=== PATIENT | female | born 1945 | race Two or more races ===

== ENCOUNTER 2022-10-15 10:39 | Outpatient (REF) | payer MEDICARE, SELFPAY ==
[2022-10-15 16:19] LABS: Urine Cytology See Pathology rpt
== END 2022-10-15 10:40 | disposition home or self-care (01) ==
LOC: HO.LNP 10:39
PROVIDERS: PCP Family Medicine; Visit Provider Nurse Practitioner Family
DX: R31.29 Other microscopic hematuria (principal); R39.89 Other symptoms and signs involving the genitourinary system; R35.0 Frequency of micturition; R32 Unspecified urinary incontinence; Z79.899 Other long term (current) drug therapy; Z79.84 Long term (current) use of oral hypoglycemic drugs
CPT/HCPCS: 51798; 88112; 99202

== ENCOUNTER → 2022-10-21 10:58 | Outpatient (BNVA) | payer MEDICARE, SELFPAY | PROVIDERS: PCP Family Medicine; Referring Provider Family Medicine; Visit Provider Internal Medicine | DX: I25.10 Atherosclerotic heart disease of native coronary artery without angina pectoris (principal); I11.0 Hypertensive heart disease with heart failure; I50.32 Chronic diastolic (congestive) heart failure; E11.9 Type 2 diabetes mellitus without complications | CPT/HCPCS: 93005; 99202 ==

== ENCOUNTER 2022-10-26 14:46 | Outpatient (REF) | payer MEDICARE, SELFPAY ==
--- NOTE | ~2022-10-26 | MM_ITS ---
EXAMINATION: MM DIAGNOSTIC DIGITAL BREAST TOMOSYNTHESIS, BILATERAL US DIAGNOSTIC ULTRASOUND BREAST, LEFT CLINICAL INFORMATION: Due for yearly. Chronic left breast pain for years. No erythema. Remote history bilateral reduction mammoplasty decades ago. The lifetime risk of breast cancer based on the Tyrer-Cuzick Model is under 5%. COMPARISON: Outside mammogram (paper media) dated 09/01/2021 ([facility]). TECHNIQUE: Digital breast tomosynthesis is performed in both the craniocaudal and mediolateral oblique views along with computer-aided detection (CAD). Synthesized 2D images are generated from the tomosynthesis. Ultrasound ultrasound left breast is targeted to the outer breast using grayscale imaging and color Doppler without and with harmonics. FINDINGS: There are scattered areas of fibroglandular density (ACR BI-RADS breast composition Category b). Parenchymal pattern is similar to the outside mammography images (paper media). There has stable patchy asymmetries posterior lower and posterior upper left breast. There is no interval developing density or architectural abnormality. No abnormal calcifications. Scattered round and a few fine vascular calcifications are present. The axilla are unremarkable. No skin thickening or coarsening of the Reji's ligaments. Ultrasound left breast demonstrates no cystic or solid mass, architectural abnormality, or focal duct ectasia. No skin thickening or edema tracking in soft tissue planes. No hyperemia on color Doppler. Results are discussed with the patient at time of visit, using an laborer orchard. MM/MM tomosynthesis diagnostic BI IMPRESSION: -No significant changes from prior outside exam. No inflammatory changes. -Unremarkable left breast ultrasound. ASSESSMENT: BI-RADS 2: Benign RECOMMENDATION: 1. Patient's chronic left mastodynia should be managed based on the clinical impression. 2. Otherwise, routine annual screening mammography. This patient's information was entered into a reminder system with a target due date for their next mammogram.
== END 2022-10-26 14:47 | disposition home or self-care (01) ==
LOC: HO.MAMMO 14:46
PROVIDERS: PCP Family Medicine; Visit Provider Family Medicine
DX: N64.4 Mastodynia (principal)
CPT/HCPCS: 76642; 77062; 77066

== ENCOUNTER 2022-11-04 10:12 | Outpatient (REF) | payer MEDICARE, SELFPAY ==
--- NOTE | ~2022-11-04 | US_ITS ---
EXAMINATION: US EXTRACRANIAL CAROTID DUPLEX, BILATERAL CLINICAL INFORMATION: Bilateral occlusion and stenosis of the carotid arteries COMPARISON: None available. TECHNIQUE: Real-time ultrasound and Doppler techniques (integrating B-mode 2-D vascular images, Doppler spectral analysis and color-flow Doppler imaging) were utilized to interrogate the extracranial carotid arteries, the vertebral arteries and proximal subclavian arteries bilaterally. The degree of stenosis is determined by criteria similar to NASCET. FINDINGS: Right Side: 1. There is no significant atherosclerotic plaque seen in the bifurcation/proximal ICA region. 2. The common carotid artery PSV proximally is 95 cm/s and distally 78 cm/s. 3. The proximal internal carotid artery velocities are 56 cm/s systolic and 13 cm/s diastolic. 4. The proximal external carotid artery PSV is 74 cm/s. 5. The vertebral artery shows antegrade flow. 6. The subclavian artery waveforms are normal. Left Side: 1. There is no significant atherosclerotic plaque seen in the bifurcation/proximal ICA region. 2. The common carotid artery PSV proximally is 74 cm/s and distally 67 cm/s. 3. The proximal internal carotid artery velocities are 47 cm/s systolic and 13 cm/s diastolic. 4. The proximal external carotid artery PSV is 60 cm/s. 5. The vertebral artery shows antegrade flow. 6. The subclavian artery waveforms are normal. US/US carotid duplex BI IMPRESSION: 1. RIGHT: Normal right internal carotid artery without atherosclerotic plaque or hemodynamically significant stenosis. 2. LEFT: Normal left internal carotid artery without atherosclerotic plaque or hemodynamically significant stenosis.
== END 2022-11-04 10:13 | disposition home or self-care (01) ==
LOC: HO.US 10:12
PROVIDERS: PCP Family Medicine; Visit Provider Internal Medicine
DX: I65.23 Occlusion and stenosis of bilateral carotid arteries (principal)
CPT/HCPCS: 93880

== ENCOUNTER 2022-11-09 05:57 | Outpatient (REF) | payer MEDICARE, SELFPAY ==
--- NOTE | ~2022-11-09 | CT_ITS ---
EXAMINATION: CT ABDOMEN AND PELVIS WITH CONTRAST CLINICAL INFORMATION: Periumbilical pain. COMPARISON: None available. TECHNIQUE: Multidetector volumetric images were obtained from the superior aspect of the liver through the pubic symphysis following administration of 85 mL of Omnipaque 350 intravenous contrast. Sagittal and coronal reformatted images were obtained on the technologist's workstation. Oral contrast: Yes This CT examination was performed using dose optimization techniques as appropriate, variously including the following: *Automated exposure control *Adjustment of mA and/or kV according to patient size (this includes techniques or standardized protocols for targeted exams where dose is matched to indication/reason for exam; i.e. extremities or head) *Use of iterative reconstruction technique DLP: 247 mGy-cm FINDINGS: LUNG BASES: The lung bases appear clear, with no evidence of inflammation or nodules. LIVER, GALLBLADDER, AND BILIARY TREE: The liver appears unremarkable in size, shape, and attenuation. No focal hepatic lesion or biliary ductal dilatation is appreciated. Status post cholecystectomy. PANCREAS: Unremarkable SPLEEN: Unremarkable ADRENAL GLANDS: Unremarkable KIDNEYS AND URETERS: The kidneys appear unremarkable in size, shape, and attenuation. No hydronephrosis, hydroureter, or calculi seen. BLADDER: Unremarkable GASTROINTESTINAL TRACT: Suboptimal oral contrast opacification of jejunum. The small and large bowel appear grossly unremarkable. No diverticulosis. Normal-appearing distal ileum. No evidence of appendicitis. ABDOMINAL WALL: No significant hernia is appreciated. LYMPH NODES/RETROPERITONEUM: No evidence of adenopathy by size criteria. Scattered calcified retroperitoneal phleboliths or calcified nodes. VASCULAR: Unremarkable PELVIC VISCERA: Uterus not visualized, probably surgically absent. OSSEOUS STRUCTURES: Unremarkable CT/CT abdomen pelvis w IV con IMPRESSION: No acute finding.
[2022-11-09] MEDS: iohexoL 350 MG/ML 100 ML INFUS..BTL IV (08:32)
[2022-11-09] MEDS: Barium Sulfate Oral (Vanilla) 450 ML ORAL.SUSP 900 ML PO (08:33)
[2022-11-10 07:29] LABS: Creatinine POC 0.5 mg/dL (0.5-1.4); GFR POC > 60
== END 2022-11-09 05:58 | disposition home or self-care (01) ==
LOC: HO.CT 05:57
PROVIDERS: PCP Family Medicine; Visit Provider Family Medicine
DX: R10.33 Periumbilical pain (principal)
CPT/HCPCS: 74177; 82565; Q9967

== ENCOUNTER → 2022-11-12 10:39 | Outpatient (REF) | payer MEDICARE, SELFPAY ==
--- NOTE | 2022-11-12 10:45 | CA_ITS ---
Transthoracic Echocardiogram Patient (Last, First, Middle): Ed Holguin, Gender: Female Date of : 1945 Age: 77 Procedure Date: 11/12/2022 Procedure Type: Transthoracic Echocardiogram Location: OP Height: 152.4 cm Weight: 54.43 kg BSA: 1.50 m2 Heart Rate: bpm BP: 110 / 66 mmHg Redipper: TO Referring MD: Juan Padilla MD Aircraft Pneudraulics Repairer: Manny Herrera MD Symptoms: I25.10 - Atherosclerotic heart disease of [place] coronary artery without... Study Quality: Fair ECG Rhythm: Sinus Conclusions: - 1. Normal LV systolic function with grade 1 diastolic dysfunction 2. Normal cardiac valvular Dopplers 3. Normal RV systolic pressure 4. No gross pericardial effusion Findings Left Ventricle Normal left ventricular size, thickness, and systolic function. The visually estimated ejection fraction is between 65-70%. Spectral Doppler is indicative of an impaired relaxation filling pattern. E/E prime ratio is <8, consistent with normal filling pressures. Evidence suggests grade I (mild) diastolic dysfunction. Peak GLS is -20%, which is within normal limits. Right Ventricle Normal right ventricular cavity size and systolic function. Atria Both atria are normal in size. There is no evidence of interatrial shunt. Aortic Valve Normal aortic valve structure and function. There is no aortic valve stenosis. There is no aortic valve regurgitation. Mitral Valve Normal mitral valve structure and function. There is trace mitral valve regurgitation. There is no mitral valve stenosis. Pulmonic Valve The pulmonic valve is likely normal. There is trace pulmonic valve regurgitation. Tricuspid Valve Normal tricuspid valve structure. There is trace tricuspid valve regurgitation. The right ventricular systolic pressure is normal. The right ventricular systolic pressure is 22 mmHg. Normal right atrial pressure. There is no evidence of pulmonary hypertension. Great Vessels All visible segments of the aorta are normal in size. The pulmonary artery was not well visualized. Venous The inferior vena cava is normal in size and collapses greater than 50% with inspiration. Pericardium/Pleural There is no evidence of pericardial effusion. Prior Study Comparison No prior study available for comparison. Measurements 2D Linear Measurements IVSd: 1.22 0.6-0.9/0.6-1.0 cm LVIDd: 3.27 3.9-5.3/4.2-5.9 cm LVIDd Index: 2.18 2.4-3.2/2.2-3.1 cm/m2 LVIDs: 2.23 2.0-3.6 cm LVPWd: 0.79 0.7-1.1 cm LA Diam: 2.40 2.7-3.8/3.0-4.0 cm LAIDs Index: 1.60 1.5-2.3 cm/m2 LV Mass: 116.90 67-162/88-224 g LV Mass Index: 77.93 43-95/49-115 g/m2 LVOT Diam: 1.90 3.0+(-)1.3 cm 2D Systolic Function EF 4C: 67.30 >55% EF 2C: 70.20 >55% EF BiP: 68.60 >55% Mitral Valve MV VTI: 0.36 MV Pk Oni: 1.19 MV Mn Oni: 0.68 MV Pk Grad: 6.00 MV Mn Grad: 2.00 MV Pk E: 0.71 MV PK A: 1.10 MV Decel Time: 303.00 E/A: 0.60 E'Lateral: 10.30 E'Medial: 6.09 E/E' Med: 11.70 E/E' Lat: 6.90 PHT: 89.00 MVA PHT: 2.47 MVA Continuity: 1.89 Decel [place]: 2.35 Aortic Valve AoV Pk Oni: 1.39 AoV Mn Oni: 0.97 AoV VTI: 0.29 AoV Pk Grad: 8.00 Aov Mn Grad: 4.00 MIYA Cont.VTI: 2.33 LVOT LVOT Pk Oni: 1.10 LVOT Mn Oni: 0.70 LVOT VTI: 0.24 LVOT Pk Grad: 5.00 LVOT Mn Grad: 2.00 LVOT Diam: 1.90 LVOT Area: 2.84 Diastolic Function MV Pk E: 0.71 MV Pk A: 1.10 E/A: 0.60 E'Medial: 6.09 E/E' Med: 11.70 E' Laterial: 10.30 E/E' Lat: 6.90 Right Ventricle TAPSE (mm): 18.40 TVS' Oni: 10.30 Tricuspid Valve TR Pk Oni: 2.17 TR Pk Grad: 19.00 RA Press: 3.00 RVSP: 22.00 Great Vessels Aorta Sinus of Valsalva: 2.94 2.0-3.[address] [place]: 2.47 1.7-3.4 cm Ao Asc: 3.30 2.1-3.4 cm Updated in Other Vendor System with Status of Final Manny Herrera MD electronically signed on 11/12/2022 4:27:48 PM with status of Final
== END ==
LOC: HO.CARD 10:39
PROVIDERS: PCP Family Medicine; Visit Provider Internal Medicine
DX: R00.2 Palpitations (principal); I25.10 Atherosclerotic heart disease of native coronary artery without angina pectoris
CPT/HCPCS: 93242; 93306; 93356

== ENCOUNTER 2022-11-16 14:47 | Outpatient (REF) | payer MEDICARE, SELFPAY ==
[2022-11-16 18:17] LABS: Alanine Aminotransferase 20 U/L (0-31); Albumin Level 4.3 g/dL (3.5-5.0); Alkaline Phosphatase 77 U/L (39-117); Anion Gap 12 (12-20); Aspartate Amino Transferase 26 U/L (5-31); Blood Urea Nitrogen 14 mg/dL (9-16); Carbon Dioxide 33 mmol/L (22-29); Chloride 103 mmol/L (96-108); Estimated Glomerular Filt Rate 58; Glucose Random 87 mg/dL (60-115); Iron 151 mcg/dL (30-160); Percent Iron Saturation 44 % (15-50); Potassium 4.7 mmol/L (3.3-5.1); Sodium 143 mmol/L (135-145); Total Iron Binding Capacity 344 mcg/dL (228-428); Total Protein 7.5 g/dL (6.5-8.0); Unsaturated Iron Binding 193 ug/dL
[2022-11-16 18:31] LABS: Ferritin 23 ng/mL (10-250); TSH reflex Free T4 1.47 uIU/mL (0.32-4.0)
== END 2022-11-16 14:48 | disposition home or self-care (01) ==
LOC: HO.LAB 14:47
PROVIDERS: PCP Family Medicine; Visit Provider Internal Medicine
DX: R10.11 Right upper quadrant pain (principal); R63.4 Abnormal weight loss; R12 Heartburn; E11.9 Type 2 diabetes mellitus without complications
CPT/HCPCS: 36415; 80053; 82728; 82784; 83036; 83540; 84443; 85027; 86364; 99202

== ENCOUNTER 2022-12-03 08:17 | Outpatient (REF) | payer MEDICARE, SELFPAY ==
--- NOTE | ~2022-12-03 | US_ITS ---
EXAMINATION: US ABDOMEN COMPLETE CLINICAL INFORMATION: Right upper quadrant pain. COMPARISON: CT abdomen and pelvis 11/09/2022. TECHNIQUE: Real-time imaging of the abdominal viscera. Limited visualization due to bowel gas. FINDINGS: PANCREAS: Limited visualization of pancreatic tail and head. Imaged portion of pancreatic body is unremarkable. ABDOMINAL AORTA: Atherosclerosis. INFERIOR VENA CAVA: Visualized portions are normal. LIVER: Mild diffuse increase in echogenicity of the liver is characteristic of primary hepatocellular disease, possibly due to hepatic steatosis and further limits visualization. GALLBLADDER: Surgically absent. COMMON BILE DUCT: Normal in caliber measuring 0.4 cm in diameter. RIGHT KIDNEY: No hydronephrosis. No renal calculi. Limited visualization. The kidney measures 9.1 cm in maximum dimension. LEFT KIDNEY: No hydronephrosis. No renal calculi. Limited visualization. The kidney measures 7.7 cm in maximum dimension. SPLEEN: Normal. The spleen measures 7.2 cm in maximum dimension. FREE FLUID: None. US/US abdomen complete IMPRESSION: Mild diffuse increase in echogenicity of the liver is characteristic of primary hepatocellular disease, possibly due to hepatic steatosis and further limits visualization. Gallbladder surgically absent. Atherosclerosis in the abdominal aorta.
== END 2022-12-03 08:18 | disposition home or self-care (01) ==
LOC: HO.US 08:17
PROVIDERS: PCP Family Medicine; Visit Provider Internal Medicine
DX: R10.11 Right upper quadrant pain (principal); R31.29 Other microscopic hematuria; R39.89 Other symptoms and signs involving the genitourinary system
CPT/HCPCS: 76700

== ENCOUNTER 2022-12-04 13:08 | Outpatient (REF) | payer MEDICARE, SELFPAY ==
--- NOTE | ~2022-12-04 | XR_ITS ---
EXAMINATION: XR LUMBOSACRAL SPINE WITH OBLIQUES CLINICAL INFORMATION: Pain, chronic radiating to the legs for 2 months. COMPARISON: None available. TECHNIQUE: AP, both oblique, and lateral views of the lumbar spine. Lateral view of the lumbosacral junction. FINDINGS: No acute fracture or subluxation. Mild dextroscoliosis of the lumbar spine. Vertebral body heights are maintained. Mild disc space narrowing. Small endplate osteophytes are present. Mild facet arthropathy at the lower lumbar spine. The posterior elements are intact. Normal bowel gas pattern. Right upper quadrant surgical clips. Multiple phleboliths noted. XR/XR lumbar spine 4V min IMPRESSION: Mild multilevel degenerative changes of the lumbar spine.
== END 2022-12-04 13:09 | disposition home or self-care (01) ==
LOC: HO.HHCX 13:08
PROVIDERS: Visit Provider Internal Medicine Geriatric Medicine
DX: M54.50 Low back pain, unspecified (principal); M79.604 Pain in right leg; M79.605 Pain in left leg
CPT/HCPCS: 72110

== ENCOUNTER 2022-12-14 13:17 | Outpatient (AMB) | payer OTHER, SELFPAY ==
--- NOTE | 2022-12-14 13:21 | MHC.OFFVIS ---
Intake Vital Signs 12/14/22 13:22 Height 5 ft Weight 119 lb 0.794 oz BMI 23.2 BP 120/61 Blood Pressure Location Lt brachial Position Sitting Pulse 77 Intake Visit Reasons: 4 week fu Intake Note: Ed presents in the office as a 4 week follow up. CC: Everything is the same from her last visit. She states that she is having acid that goes into her esophagus. This happened starting 2 weeks ago and has never happened like that before. She has a bitter taste in her mouth because of it. Rehabilitation Caseworker Required: Yes Allergies No Known Allergies Allergy (Verified 11/16/22 14:58) HPI HPI Comments History of Present Illness Details 77 y.o F with PMH of who is here for refractory GERD . 11/16/22: Pt accompanied by her and daughter. Pt reports heartburn sensation for almost a decade now. Happens after food and associated with nausea. Has led to significant decrease in appetite with resultant weight loss of almost 4 lbs in just last one month. Pain often then localises to RUQ. Has been taking pepcid and carafate - feels that carafate helps more. Also takes Omeprazole 20 PRN. Pt also takes naproxen occasionally for that same abdominal pain. Does not smoke or drink. Has never had an EGD, last colo >10 years ago in [place]. Does not remember if she had polyps. s/p CCY. Of note, also reports spasm in around her umbilicus whenever she laughs or with any sudden movement and is concerned for ? hernia. 12/14/22: Here with her . Reports improvement in abdominal pain however heartburn continues to be an issue despite taking PPI as prescribed now i.e daily at least 30-40 mins before first meal of the day. Continues to use Naproxen frequently. 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 Diabetes mellitus TONY (generalized anxiety disorder) GERD (gastroesophageal reflux disease) Hypertension Migraine Osteoporosis PVD (peripheral vascular disease) Urinary incontinence Vertigo Vitamin D deficiency Surgical History History of esophagogastroduodenoscopy (EGD) Hx of colonoscopy Family History Mother Heart problem Social History Alcohol intake: never Patient Tobacco Use Status: Never used Tobacco Review of Systems Const All systems reviewed & are unremarkable except as noted in HPI and below Physical Exam Vital Signs: Last Vital Signs Pulse 77 12/14/22 13:22 BP 120/61 12/14/22 13:22 BMI result Body Mass Index 23.2 Gen appear: NAD, undernourished HEENT: nonicteric, no cervical lymphadenopathy Chest: CTA CVS: Regular S1/S2 Abd: soft, nontender, nondistended, bowel sounds +, no umbolical or ventral hernia appreciated Ext: no peripheral edema Neuro: A/Ox3, noted to move all extremities spontaneously Psych: interacting appropriately Assessment & Plan Assessment & Plan (1) Right upper quadrant pain: Code(s): R10.11 - Right upper quadrant pain (2) Unintentional weight loss: Code(s): R63.4 - Abnormal weight loss (3) Chronic heartburn: Code(s): R12 - Heartburn Plan Reviewed results of labs and US. Will proceed with upper endoscopy for GERD and abdominal pain. This will be booked alongside a screening colonoscopy. Split PEG prep instructions reviewed with the help fo diplomatic interpreter/translator. Counseled to avoid NSAIDs Cont prilosec but hold x 2 weeks before EGD Avoid trigger foods Avoid laying down within 3h of consuming food Follow up after EGD and colo. Medications: New peg 3350-electrolytes 236-22.74-6.74 -5.86 gram (Golytely) as per split prep instructions, until fecal effluent is clear 240 mL PO Q10M 4,000 mL 0RF colonoscopy Coding Level of Care Code Est Pt Level 4 (19804) Diagnoses Right upper quadrant pain R10.11 Unintentional weight loss R63.4 Chronic heartburn R12
[2022-12-14 13:22] VITALS: BP 120/61; PULSE 77; BMI 23.2
== END 2022-12-14 15:46 | disposition home or self-care (01) ==
PROVIDERS: PCP Family Medicine; Visit Provider Internal Medicine
DX: R10.11 Right upper quadrant pain (principal); R63.4 Abnormal weight loss; R12 Heartburn
CPT/HCPCS: 99214

== ENCOUNTER → 2022-12-14 13:17 | Outpatient (BNVA) | payer OTHER, SELFPAY | PROVIDERS: PCP Family Medicine; Visit Provider Internal Medicine | DX: R10.11 Right upper quadrant pain (principal); R63.4 Abnormal weight loss; R12 Heartburn | CPT/HCPCS: 99212 ==

== ENCOUNTER 2022-12-15 10:02 | Outpatient (AMB) | payer MEDICARE, SELFPAY ==
--- NOTE | 2022-12-15 10:04 | MHC.OFFVIS ---
Intake Vital Signs 12/15/22 10:19 Height 5 ft Weight 120 lb 6 oz BMI 23.5 BP 110/70 Blood Pressure Location Lt brachial Position Sitting Intake Visit Reasons: abdominal pain Intake Note: Patient is seen in office for evaluation and treatment of abdominal pain. Patient c/o: onset 4 months, pain in the umbilical area, feels a lump, reducible, admits to pain when bending and laughing, had prior gallbladder surgery and multiple hernia surgery Carton Lettering Machine Operator Required: Yes Carton Lettering Machine Operator Language: Background Check Coordinator Name: Leigh KAUR Information Interpreted: non-clinical & clinical Accompanied by: Self / Same As Patient Allergies No Known Allergies Allergy (Verified 12/15/22 10:15) HPI HPI Comments History of Present Illness Details 77-year-old female patient presenting with complaints of abdominal pain located in the periumbilical region. Pain is been present for approximately 4 months in seems to increase in severity with exertion or with coughing and bending. She has previously undergone a laparoscopic cholecystectomy with periumbilical incision. She is uncertain if there is any palpable lump in this location. She complains of heartburn but denies nausea, vomiting, fever, chills, diarrhea or constipation. A previous CT abdomen and pelvis on 11/09/2022 revealed no evidence of an umbilical hernia. 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 Diabetes mellitus TONY (generalized anxiety disorder) GERD (gastroesophageal reflux disease) Hypertension Migraine Osteoporosis PVD (peripheral vascular disease) Urinary incontinence Vertigo Vitamin D deficiency Surgical History History of cholecystectomy History of esophagogastroduodenoscopy (EGD) History of hernia repair History of left inguinal hernia repair History of right inguinal hernia repair Hx of colonoscopy Family History Mother Heart problem Social History Alcohol intake: never Patient Tobacco Use Status: Never used Tobacco Review of Systems Const All systems reviewed & are unremarkable except as noted in HPI and below Denies chills, Denies fever(s), Denies headache(s), Denies poor appetite and Denies weakness ENT Denies headache(s) Card Denies chest pain, Denies irregular heart rhythm, Denies palpitations and Denies dyspnea Resp Denies cough, Denies excessive phlegm production and Denies dyspnea GI Reports abdominal pain, Denies bloating, Denies change in bowel habits, Denies constipation, Reports heartburn, Denies diarrhea, Denies nausea and Denies vomiting Denies urinary frequency Musc Denies back pain, Denies muscle weakness and Denies numbness Skin/Breast Denies changing lesions and Denies unusual bruising Neuro Denies headache(s), Denies numbness, Denies paresthesias and Denies weakness Psych Denies anxiety and Denies depression Endo Denies palpitations Dav/Lymph Denies lymphadenopathy Physical Exam Const General: cooperative and no acute distress Nutritional Appearance: well nourished Orientation/consciousness: patient oriented x3 Limitations: no limitations HEENT Head: Yes normocephalic and Yes atraumatic Ears: hearing grossly normal bilaterally Resp Effort & Inspection: normal respiratory effort, no audible wheezes, no cough and no respiratory distress Cardio Jugular venous distension: no JVD GI Other: Examination in the standing position revealed no obvious abdominal hernias however when in the supine position a periumbilical hernia is identified in the region of her previous periumbilical incision which increases with Valsalva maneuvers. Findings are consistent with a small incisional hernia at the umbilicus. Inspection: Yes normal to inspection Abdomen image: 1. Palpable hernia Skin Other: Warm, dry, no rash Neuro General: patient oriented x3 Extrem General: Yes no clubbing, cyanosis or edema Assessment & Plan Assessment & Plan (1) Incisional hernia: Code(s): K43.2 - Incisional hernia without obstruction or gangrene Plan 77-year-old female patient presenting with a 4 month history of abdominal pain in the periumbilical region found on examination to have a very small (less than 1 cm) incisional hernia from her prior laparoscopic cholecystectomy. The hernias noted to increase in size with Valsalva maneuvers. We discussed repair of this incisional hernia verses observation. She is not interested in undergoing surgery at this time but will call should the symptoms worsen or become more persistent. She should follow up as needed. Coding Level of Care Code New Pt Level 4 (58764) Diagnoses Incisional hernia K43.2
[2022-12-15 10:19] VITALS: BP 110/70; BMI 23.5
== END 2022-12-15 10:33 | disposition home or self-care (01) ==
PROVIDERS: PCP Family Medicine; Referring Provider Family Medicine; Visit Provider Surgery
DX: K43.2 Incisional hernia without obstruction or gangrene (principal)
CPT/HCPCS: 99203

== ENCOUNTER → 2022-12-15 10:02 | Outpatient (BNVA) | payer MEDICARE, SELFPAY | PROVIDERS: PCP Family Medicine; Referring Provider Family Medicine; Visit Provider Surgery ==

== ENCOUNTER 2023-01-19 10:00 | Outpatient (AMB) | payer MEDICARE, SELFPAY ==
--- NOTE | 2023-01-19 10:12 | A.OFFVIS_ITS ---
Intake Intake Visit Reasons: 3m follow up/US Intake Note: Patient is present for follow up micro hematuria/frequency/urgency/ultrasound (imaging 12/03&11/07) Urology Medications: bactrim, estrace cream Blood Thinner: aspirin PVR: 19ml's Desktop Architect Required: Yes Accompanied by: Self / Same As Patient Allergies No Known Allergies Allergy (Verified 01/19/23 21:37) Medication List - Last Reconciled 01/19/23 by SHANA StaufferP- albuterol sulfate 90 mcg/actuation (Proventil HFA) 2 puffs inhalation Q4H PRN aspirin 81 mg PO QAM pcxbstbohu-uwggrqsfzkglb-zjmc 50-325-40 mg 1 tab PO Q6H PRN calcium carbonate 600 mg PO BID cyclobenzaprine 10 mg PO BEDTIME estradiol 0.01%(0.1mg/gram) vaginally 3 times a week; pea sized amount to urethra 3 times a week 30 days famotidine 40 mg PO BEDTIME fluticasone propionate 110 mcg/actuation (Flovent HFA) 1 puff inhalation losartan 25 mg PO QAM metformin 500 mg PO TID montelukast 10 mg PO QAM multivitamin 1 tab PO QAM naproxen 500 mg PO DAILY PRN peg 3350-electrolytes 236-22.74-6.74 -5.86 gram (Golytely) 240 mL PO Q10M rosuvastatin 20 mg PO QAM sertraline 25 mg PO QAM sucralfate (Carafate) 10 mL PO Q6H sulfamethoxazole-trimethoprim 400-80 mg (Bactrim) 1 tab PO BEDTIME 90 days venlafaxine ER 37.5 mg PO DAILY HPI HPI Comments History of Present Illness Details Ed is a very pleasant 77-year-old Greenlandic-speaking female patient of Dr. Headley. She presents to the office today for a follow up of her ongoing urological issues. She has a past medical history of asthma, DM, migraine headaches, GERD, CAD, vertigo, anxiety, chronic kidney disease stage 2, cervical disc disorder, carpal tunnel syndrome, vitamin-D deficiency, hypertension, chronic diastolic heart failure, dementia Alzheimer's, osteoporosis, left breast nodule, and PVD. Of note, patient was seen approximately 3 months ago at which time she was started on low-dose antibiotic therapy for question of interstitial cystitis. When asked patient reports no significant improvement in lower urinary tract symptoms she has been experiencing. She reports for many years approximately 20 she has been having ongoing issues with urinary frequency, urgency, bladder pressure, and episodes of incontinence if not near a bathroom. She otherwise denies visible hematuria, flank pain, foul-smelling urine, fever, and or chills. In office urinalysis results reviewed with the patient today. PVR 14mLs. Discussed at length potential causes for microscopic hematuria. Discussed further microscopic hematuria workup with in office cystoscopy as patient with previous CT, ultrasound, and urine cytology with no abnormal findings regarding the bladder and or kidneys. When asked patient denies smoking history and or any known chemical exposure. She discusses having had a cystoscopy in 2011 and again in 2020 both were normal in [place]. Discussed at length importance of drinking adequate amount of water daily. Discussed bladder triggers/irritants. Discussed at length importance of managing diabetes for improvement in urinary symptoms as well as overall health and well-being. [facility] Medical History Asthma Atherosclerotic cardiovascular disease Breast nodule CAD (coronary artery disease) Carpal tunnel syndrome Cervical disc disorder Chronic diastolic (congestive) heart failure CKD (chronic kidney disease), stage II Dementia in Alzheimer's disease Diabetes mellitus TONY (generalized anxiety disorder) GERD (gastroesophageal reflux disease) Hypertension Migraine Osteoporosis PVD (peripheral vascular disease) Urinary incontinence Vertigo Vitamin D deficiency Surgical History History of cholecystectomy History of esophagogastroduodenoscopy (EGD) History of hernia repair History of left inguinal hernia repair History of right inguinal hernia repair Hx of colonoscopy Family History Mother Heart problem Social History Alcohol intake: never Patient Tobacco Use Status: Never used Tobacco Review of Systems Const Reports as per HPI Eyes Reports no additional complaints ENT Reports no additional complaints Card Reports as per HPI Resp Reports as per HPI GI Reports as per HPI Reports as per HPI Musc Reports as per HPI Neuro Reports as per HPI Psych Reports as per HPI Endo Reports as per HPI Physical Exam Const General: cooperative, healthy appearing, comfortable, no acute distress, well developed, alert and awake Orientation/consciousness: patient oriented x3 Limitations: no limitations HEENT Head: Yes normal to inspection, Yes normocephalic and Yes atraumatic Ears: hearing grossly normal bilaterally Eyes General: appearance normal, both eyes and all related structures Neck Neck: Yes normal visual inspection and Yes trachea midline Chest Chest palpation & inspection: normal inspection of the chest Resp Effort & Inspection: normal respiratory effort and able to speak in complete sentences Cardio Rate: regular rate GI Inspection: Yes normal to inspection General: Yes no CVA tenderness External Female Exam: normal external appearance and normal appearance of the urethra Speculum Exam - Vagina: normal appearance of the vagina Back/Spine/Pelvis Back: no CVA tenderness Skin General skin exam: no rashes or lesions noted Neuro General: patient oriented x3 Extrem General: Yes normal to inspection Psych Appearance: grossly normal and well kempt Mental Status: mental status grossly normal Speech and movement: Normal speech and movement present and Clear speech present Affect: normal affect Attitude: cooperative Thought process: Normal thought process present Thought content: Normal thought content present Insight: Fair insight present (Psych) Judgement: Fair judgement present (Psych) Office Procedures Post Void Residual Post Residual Void Post Void Residual (PVR): 19 [id number]-Hfzw Void Residual by ultrasound Results AMB Urinalysis, Automated UA Leukoctes 0 Taqueria/uL Last Edit by [employer] on 01/19/23 10:37 UA Nitrite Last Edit by [employer] on 01/19/23 10:37 UA Urobilinogen 0.2 mg/dL Last Edit by [employer] on 01/19/23 10:37 UA Protein 0 mg/dL Last Edit by [employer] on 01/19/23 10:37 UA pH 6.0 Last Edit by [employer] on 01/19/23 10:37 UA Blood 80 Flavio/uL Last Edit by [employer] on 01/19/23 10:37 UA Specific Lyons 1.010 Last Edit by [employer] on 01/19/23 10:37 UA Ketone Negative Last Edit by [employer] on 01/19/23 10:37 UA Bilirubin 0 mg/dL Last Edit by [employer] on 01/19/23 10:37 UA Glucose 0 mg/dL Last Edit by Dakota Treadwell on 01/19/23 10:37 Results Reviewed Results Reviewed: Laboratory Last Values Urine pH (Auto) 6.0 01/19/23 10:17 Specific Lyons (Auto) 1.010 01/19/23 10:17 Urine Protein (Auto) 0 mg/dL 01/19/23 10:17 Glucose (UA)(Auto) 0 mg/dL 01/19/23 10:17 Urine Ketones (Auto) Negative 01/19/23 10:17 Urine Blood (Auto) 80 Flavio/uL 01/19/23 10:17 Urine Bilirubin (Auto) 0 mg/dL 01/19/23 10:17 Urine Urobilinogen (Auto) 0.2 mg/dL 01/19/23 10:17 Leukocyte Esterase (Auto) 0 Taqueria/uL 01/19/23 10:17 Assessment & Plan Assessment & Plan (1) Microhematuria: Code(s): R31.29 - Other microscopic hematuria (2) Sensation of pressure in bladder area: Code(s): R39.89 - Other symptoms and signs involving the genitourinary system (3) Urinary frequency: Code(s): R35.0 - Frequency of micturition Plan In office urinalysis results reviewed with the patient today; as noted above. PVR 14 mL. Discussed pelvic floor exercises to assist with urinary symptoms Discussed at length potential causes for microscopic hematuria. Discussed possible near future in office cystoscopy if symptoms persist and/or worsen. Discussed, educated, and encouraged on the importance of drinking adequate amount of water daily. Discussed bladder triggers/irritants. Start low-dose Cialis 5 mg daily as discussed and prescribed Continue Estrace cream as discussed and prescribed. Follow-up in 3 months; or sooner with any issues, concerns, and or questions. Orders: Orders AMB Urinalysis Automated Today Z13.9 - Encounter for screening, unspecified AMB Post Void Residual by ultrasound Today R35.0 - Frequency of micturition Medications: New tadalafil (Cialis) [id number] [facility] [id number] Member [id number] 5 mg PO DAILY 90 days 90 tabs 0RF Patient Instructions: The patient had an opportunity to ask questions regarding the treatment plan. All questions were answered. Physical exam, labs, and imaging were discussed and reviewed in detail. As well as risks, benefits, and discussion of treatment choices. No major barriers to understanding were identified. The patient expressed understanding and agreement with the above treatment plan. The patient was made aware they should contact our office by phone for worsening of their current condition, the appearance of new symptoms, or with any questions or concerns. Compliance is encouraged with any medications and follow up testing that is ordered. It is a privilege to be allowed the opportunity to participate in? your urological care.? Again, if you have any questions or concerns If you have any questions or concerns please do not hesitate to contact me. The office is [phone]. This note is constructed using voice recognition software. While every effort has been made to ensure accuracy hydro excavation operator errors may have been included. Yours sincerely, JEFFERSON Stauffer Coding Level of Care Code Est Pt Level 4 (21902) Diagnoses Microhematuria R31.29 Sensation of pressure in bladder area R39.89 Urinary frequency R35.0 CPT Codes Post Residual Void - PVR CPT Code: 54449-Perj Void Residual by ultrasound ([id number])
== END 2023-01-19 11:18 | disposition home or self-care (01) ==
PROVIDERS: PCP Family Medicine; Visit Provider Nurse Practitioner Family
DX: R31.29 Other microscopic hematuria (principal); R39.89 Other symptoms and signs involving the genitourinary system; R35.0 Frequency of micturition
CPT/HCPCS: 99214

== ENCOUNTER → 2023-01-19 10:00 | Outpatient (BNVA) | payer MEDICARE, SELFPAY | PROVIDERS: PCP Family Medicine; Visit Provider Nurse Practitioner Family | DX: R31.29 Other microscopic hematuria (principal); R35.0 Frequency of micturition; R39.89 Other symptoms and signs involving the genitourinary system | CPT/HCPCS: 51798; 81003; 99212 ==

== ENCOUNTER 2023-02-02 13:32 | Outpatient (AMB) | payer MEDICARE, SELFPAY ==
--- NOTE | 2023-02-02 13:48 | A.OFFVIS_ITS ---
Intake Vital Signs 02/02/23 13:49 Height 5 ft Weight 117 lb 4.575 oz BMI 22.9 BP 114/72 Blood Pressure Location Lt brachial Position Sitting Pulse 74 Pulse Source Pulse Oximeter Intake Visit Reasons: 3 month follow up after testing per HS Intake Note: 3 month f/u after testing sill having s/b Clinic Physician Director Required: Yes Clinic Physician Director Language: Bladder Blower Name: alexander chase [id number] Allergies No Known Allergies Allergy (Verified 02/02/23 13:55) Medication List - Last Reconciled 02/02/23 by DAKOTA SalazarC albuterol sulfate 90 mcg/actuation (Proventil HFA) 2 puffs inhalation Q4H PRN aspirin 81 mg PO QAM lsodkhtxob-dfpzggrkhzral-muyc 50-325-40 mg 1 tab PO Q6H PRN calcium carbonate 600 mg PO BID cyclobenzaprine 10 mg PO BEDTIME estradiol 0.01%(0.1mg/gram) vaginally 3 times a week; pea sized amount to urethra 3 times a week 30 days famotidine 40 mg PO BEDTIME fluticasone propionate 110 mcg/actuation (Flovent HFA) 1 puff inhalation losartan 25 mg PO QAM metformin 500 mg PO TID montelukast 10 mg PO QAM multivitamin 1 tab PO QAM naproxen 500 mg PO DAILY PRN peg 3350-electrolytes 236-22.74-6.74 -5.86 gram (Golytely) 240 mL PO Q10M rosuvastatin 20 mg PO QAM sertraline 25 mg PO QAM sucralfate (Carafate) 10 mL PO Q6H sulfamethoxazole-trimethoprim 400-80 mg (Bactrim) 1 tab PO BEDTIME 90 days tadalafil (Cialis) 5 mg PO DAILY 90 days HPI 3 month follow up after testing per HS HPI Details Ed is a 77-year-old female with past medical history of hypertension, diabetes, hyperlipidemia, diastolic heart failure, nonobstructive CAD who was recently evaluated for heart palpitations and shortness of breath. She underwent an echocardiogram, Holter monitor and carotid ultrasound and now presents for follow-up. Today she reports that she has chronic shortness of breath. She feels like she has to take a deep breath in frequently even when sitting and when doing activities. She says this has gone on for a long time and she does not feel that it is getting worse. She denies PND, orthopnea or edema. She says she has a history of asthma but this shortness of breath does not feel like asthma. She denies chest discomfort at rest or with activity. She will feel her heart beat fast at times. No presyncope, syncope, falls. Does only light physical activity. Takes meds as directed. [facility] Medical History Atherosclerotic cardiovascular disease PVD (peripheral vascular disease) Breast nodule Urinary incontinence Osteoporosis Dementia in Alzheimer's disease Chronic diastolic (congestive) heart failure Hypertension Vitamin D deficiency Carpal tunnel syndrome Cervical disc disorder CKD (chronic kidney disease), stage II TONY (generalized anxiety disorder) Vertigo CAD (coronary artery disease) GERD (gastroesophageal reflux disease) Migraine Diabetes mellitus Asthma Surgical History History of hernia repair History of left inguinal hernia repair History of right inguinal hernia repair History of cholecystectomy Hx of colonoscopy History of esophagogastroduodenoscopy (EGD) Family History Mother Heart problem Social History Alcohol intake: never Patient Tobacco Use Status: Never used Tobacco Review of Systems Const All systems reviewed & are unremarkable except as noted in HPI and below ENT Denies dizziness Card Denies chest pain, Denies chest pain at rest, Denies chest pain with activity, Denies rapid heart rate, Denies pedal edema, Denies edema, Denies leg edema, Denies lightheadedness, Denies palpitations, Reports dyspnea, Reports dyspnea on exertion and Denies orthopnea Resp Denies cough, Reports dyspnea and Reports dyspnea on exertion GI Denies hematochezia and Denies change in stool character Musc Denies abnormal gait, Denies limited range of motion, Denies muscle cramps, Denies muscle weakness, Denies numbness, Denies radiating pain into limb, Denies stiffness and Denies tingling Neuro Denies abnormal gait, Denies dizziness, Denies numbness and Denies tingling Endo Denies palpitations Physical Exam Vital Signs: Last Vital Signs Pulse 74 09/19/23 13:49 BP 114/72 02/02/23 13:49 BMI result Body Mass Index 22.9 Const General: cooperative, healthy appearing, comfortable and no acute distress Orientation/consciousness: patient oriented x3 Neck Neck: Yes normal visual inspection Resp Other: repeatedly taking in deep breaths and says she has chronic sob Effort & Inspection: normal respiratory effort, abnormal respiratory pattern, no audible wheezes and no cough Auscultation: clear to auscultation bilaterally, no crackles, no rales, no rhonchi and no wheezes Cardio Jugular venous distension: no JVD Rate: regular rate Rhythm: regular rhythm Heart sounds: S1 normal heart sound present, S2 normal heart sound present, no gallops, no murmurs and no rubs Neuro General: patient oriented x3 Extrem General: Yes normal to inspection, No no pedal edema and No calf tenderness Psych Appearance: grossly normal Mental Status: mental status grossly normal Speech and movement: Normal speech and movement present Assessment & Plan Assessment & Plan (1) Shortness of breath: Code(s): R06.02 - Shortness of breath Plan: Patient who previously followed with [facility] in [place]. Known to have nonobstructive coronary artery disease based on cardiac catheterization 2020. Being evaluated now for shortness of breath and need to take frequent deep breaths. EKG done last visit showing normal sinus rhythm with left axis deviation, rate 78. An echocardiogram was done on 11/12/2022 showing EF 65-70%, grade 1 diastolic dysfunction, no valve abnormalities. Holter monitor done 11/12/2022 showing sinus rhythm with average heart rate 72, rare PACs, her symptoms correlated with sinus rhythm. Spent time reviewing test results with her. During my visit she is showing respiratory difficulty and repeatedly takes in deep breaths. She says she has been like this for a long time, over a year. History of asthma however no wheezes noted on examination. She does not appear fluid overloaded on examination. To confirm will check a BNP. Will also obtain a pulmonary function test. If abnormal will refer to pulmonology. At present this is not seem to be a cardiac symptom. Cardiology follow-up in 4-6 weeks, sooner if needed (2) Hypertension: Code(s): I10 - Essential (primary) hypertension Qualifiers: Hypertension type: primary hypertension Qualified Code(s): I10 - Essential (primary) hypertension Plan: Well controlled at present time. No med changes made. (3) Chronic diastolic (congestive) heart failure: Code(s): I50.32 - Chronic diastolic (congestive) heart failure Plan: As above (4) Atherosclerotic cardiovascular disease: Code(s): I25.10 - Atherosclerotic heart disease of [place] coronary artery without angina pectoris Plan: Notes indicate a cardiac catheterization done in [place] in 2020 showed nonobstructive coronary artery disease. She has no clear anginal symptoms. Her echocardiogram shows normal EF and no regional wall motion abnormalities. Will continue on aspirin, rosuvastatin with LDL goal less than 70. She is on losartan for blood pressure control. Signs and symptoms of angina reviewed with her. Orders: Orders PFT pulmonary function test Today R06.02 - Shortness of breath Coding Level of Care Code Est Pt Level 3 (11799) Diagnoses Shortness of breath R06.02 Primary hypertension I10 Hypertension type: primary hypertension Chronic diastolic (congestive) heart failure I50.32 Atherosclerotic cardiovascular disease I25.10 Time Spent (min) 24
[2023-02-02 13:49] VITALS: BP 114/72; PULSE 74; BMI 22.9
== END 2023-02-02 14:28 | disposition home or self-care (01) ==
PROVIDERS: PCP Family Medicine; Visit Provider Nurse Practitioner Family
DX: R06.02 Shortness of breath (principal); I10 Essential (primary) hypertension; I50.32 Chronic diastolic (congestive) heart failure; I25.10 Atherosclerotic heart disease of native coronary artery without angina pectoris
CPT/HCPCS: 99213

== ENCOUNTER → 2023-02-02 13:32 | Outpatient (BNVA) | payer MEDICARE, SELFPAY | PROVIDERS: PCP Family Medicine; Visit Provider Nurse Practitioner Family | DX: I11.0 Hypertensive heart disease with heart failure (principal); I50.32 Chronic diastolic (congestive) heart failure; I25.10 Atherosclerotic heart disease of native coronary artery without angina pectoris; R06.02 Shortness of breath | CPT/HCPCS: 99212 ==

== ENCOUNTER 2023-02-12 06:20 | Day surgery (SDC) | payer MEDICARE, OTHER, SELFPAY ==
[2023-02-10 13:55] VITALS: BMI 22.8
[2023-02-12 07:23] VITALS: BMI 23.0
[2023-02-12 07:27] VITALS: BP 125/71; PULSE 72; RESP 18; TEMP 36.6; O2SAT 96; BMI 23.0
[2023-02-12 07:36] LABS: Glucose, Whole Blood 78 mg/dL (60-115)
[2023-02-12] MEDS: Lactated Ringers 1,000 ML 50 ML IVCONT (07:56)
--- NOTE | 2023-02-12 08:50 | HO.ANESPROP2 ---
[facility] Active Problems Active Problems: All Active Problems (Updated 02/02/23 @ 17:21 by Cheli Sánchez, [employer]) Shortness of breath (Acute) Incisional hernia (Acute) Chronic heartburn (Acute) Unintentional weight loss (Acute) Right upper quadrant pain (Acute) Urinary frequency (Acute) Sensation of pressure in bladder area (Acute) Microhematuria (Acute) Hypertension (Acute) Diabetes mellitus (Acute) Chronic diastolic (congestive) heart failure (Acute) Atherosclerotic cardiovascular disease (Acute) Past Medical History Medical History (Updated 02/02/23 @ 17:21 by Cheli Sánchez, [employer]) Atherosclerotic cardiovascular disease PVD (peripheral vascular disease) Breast nodule Urinary incontinence Osteoporosis Dementia in Alzheimer's disease Chronic diastolic (congestive) heart failure Hypertension Vitamin D deficiency Carpal tunnel syndrome Cervical disc disorder CKD (chronic kidney disease), stage II TONY (generalized anxiety disorder) Vertigo CAD (coronary artery disease) GERD (gastroesophageal reflux disease) Migraine Diabetes mellitus Asthma Family History Family History Mother Heart problem Family history of problems with anesthesia: No Surgical History Surgical History (Updated 02/10/23 @ 13:52 by Yamileth Sauceda RN) Hx of cardiac catheterization History of hernia repair History of left inguinal hernia repair History of right inguinal hernia repair History of cholecystectomy Hx of colonoscopy History of esophagogastroduodenoscopy (EGD) History of Problems with Anesthesia: No Social History Social History Alcohol intake: never Patient Tobacco Use Status: Never used Tobacco Use of substances other than those prescribed or required for medical reasons: No Are you DNR?: No Advance Directives: No Advance Directives Information Provided: Yes Meds Allergies Allergy/AdvReac Type Severity Reaction Status Date / Time No Known Allergies Allergy Verified 02/02/23 13:55 Active Medications: Current Medications Lactated Ringer's (Lr) 1,000 mls @ 50 mls/hr IVCONT .Q20H PAIGE Last Admin: 02/12/23 07:56 Dose: 50 mls/hr Home Medications Medication Instructions Recorded Confirmed Last Taken Type albuterol sulfate 90 mcg/actuation 2 puff inhalation Q4H PRN wheezing 10/15/22 02/10/23 Unknown History aerosol inhaler (Proventil HFA) aspirin 81 mg tablet,delayed 81 mg PO QAM 10/15/22 02/10/23 Unknown History release vhmfhaxagj-nbezzhgryvzfu-dejfsaaj 1 tab PO Q6H PRN headache 10/15/22 02/10/23 Unknown History 50 mg-325 mg-40 mg tablet calcium carbonate 600 mg calcium 600 mg PO BID 10/15/22 02/10/23 Unknown History (1,500 mg) tablet cyclobenzaprine 10 mg tablet 10 mg PO BEDTIME 10/15/22 02/10/23 Unknown History famotidine 40 mg tablet 40 mg PO BEDTIME 10/15/22 02/10/23 Unknown History fluticasone propionate 110 1 puff inhalation BID 10/15/22 02/10/23 Unknown History mcg/actuation HFA aerosol inhaler (Flovent HFA) metformin 500 mg tablet 500 mg PO TID 10/15/22 02/10/23 Unknown History montelukast 10 mg tablet 10 mg PO QAM 10/15/22 02/10/23 Unknown History multivitamin 1 tab PO QAM 10/15/22 02/10/23 Unknown History rosuvastatin 20 mg tablet 20 mg PO QAM 10/15/22 02/10/23 Unknown History sertraline 25 mg tablet 25 mg PO QAM 10/15/22 02/10/23 Unknown History sucralfate 100 mg/mL oral 10 ml PO Q6H 10/15/22 02/10/23 Unknown History suspension (Carafate) losartan 25 mg tablet 25 mg PO QAM 11/16/22 02/10/23 Unknown History naproxen 500 mg tablet 500 mg PO DAILY PRN Pain 11/16/22 02/10/23 Unknown History Exam Exam Date and Time: February 12, 2023 0850 Height,Weight and Vital Signs: Height 5 ft Weight 53.524 kg Last Vital Signs Temp 97.9 F 02/12/23 07:27 Pulse 72 02/12/23 07:27 Resp 18 02/12/23 07:27 BP 125/71 02/12/23 07:27 Pulse Ox 96 02/12/23 07:27 O2 Del Method Room Air 02/12/23 07:27 Pertinent Lab Results Pertinent Lab Results: Laboratory Tests 02/12/23 07:31 POC Glucose 78 Airway Mallampati Class: II (top front caps) TM Dist: >3cm Neck ROM: Full Heart: rrr Lungs: CTA Assessment and Plan Assessment Anesthesia Assessment: Anesthesia Plan Discussed and Chart Reviewed Final Anesthetic Review Family History of Problems with Anesthesia: No History of Problems with Anesthesia: No NPO: Yes ASA Class: III Final Preanesthetic Review: No Changes in Pt Med Stat, Meds/Allgs Chart Reviewed and Consent Obtained/Reviewed Patient Risk: Intermediate Procedure Risk: Intermediate Anesthetic Plan Anesthetic Plan: MAC: Disposition: Standard PACU
[2023-02-12 08:51] LABS: Glucose, Whole Blood 80 mg/dL (60-115)
--- NOTE | 2023-02-12 08:56 | MHC.SHP ---
Pre-Procedural Eval Section A Date of Service: 02/12/23 The patient is an INPATIENT: No The History & Physical has been completed within 30 days and I have reviewed it.: No Section B Chief Complaint: screening, heartburn,weight loss Relevant Family History (Specify if Yes): No Relevant Social History: None Present Medications: see Short Stay Collaborative assessment Medical History: Significant History (Asthma Atherosclerotic cardiovascular disease Breast nodule CAD (coronary artery disease) Carpal tunnel syndrome Cervical disc disorder Chronic diastolic (congestive) heart failure CKD (chronic kidney disease), stage II Dementia in Alzheimer's disease Diabetes mellitus TONY (generalized anxiety disor) History of Previous Operations: Relevant previous surgery/procedure and date(s) (History of EGD and colonoscopy) Allergies: Allergies Allergy/AdvReac Type Severity Reaction Status Date / Time No Known Allergies Allergy Verified 02/02/23 13:55 Review of Systems Sugical H&P ROS: Negative: Constitution, Cardiovascular, Respiratory and Gastrointestinal Exam Surgical H&P Exam: Normal: Heart, Normal: Lungs, Normal: Extremities and Normal: Abdomen Plan Diagnosis/Plan: Unchanged I have reviewed the history and physical and performed a pertinent physical examination on my patient. No changes have occurred unless specified. Time Spent With Patient Time: Total time managing care of this patient today ____ minutes.
--- NOTE | 2023-02-12 08:57 | W.PM.OPN ---
Operative Note Operative Note Date of Service: 02/12/23 Narrative: FLEXIBLE TRANSORAL UPPER GASTROINTESTINAL ENDOSCOPY WITH BIOPSIES AND COLONOSCOPY TILL CECUM Pre-op diagnosis: Screening, GERD, abdominal pain, wt loss Post-op diagnosis: GERD, hiatal hernia, gastritis, diverticulosis, hemorrhoids Endoscopist:Richard Gonzáles MD Anesthesia:?MAC UPPER ENDOSCOPY Consent: Indications for the procedure and potential complications of bleeding, perforation, reaction to medications and missed diagnosis were discussed with the patient and informed consent was obtained. Instrument: Olympus GIF H 190 mid size upper endoscope Monitoring: Vital signs and clinical assessment, continuous EKG monitoring, Pulse oximetry, Carbon Dioxide monitoring and blood pressure monitoring were done throughout the procedure. Procedure: The patient was placed in the left lateral decubitis position and pre-procedure medications were administered and a bite block was placed. The endoscope was inserted into the mouth and advanced under direct vision to the third part of duodenum. A careful inspection was made as the upper endoscope was withdrawn including a retroflexed examination of the proximal stomach; Findings and interventions are described below. Findings: Larynx: Normal Esophagus: Circular folds noted in the proximal esophagus during intubation - biopsies obtained to check for EOE. GE junction at 34 cms, small hiatal hernia 34 to 36 cms. No esophagitis or Hassan's. Stomach: Moderate diffuse gastric erythema and bile noted in the stomach. Biopsies were obtained. Grade 2 flap valve on retroflexed examination of the cardia. Duodenum: Normal bulb and descending duodenum. Biopsies were obtained from 3rd part of the duodenum to check for celiac sprue. Intervention: Biopsies as noted above COLONOSCOPY PROCEDURE NOTE Consent: Indications for the procedure and potential complications of bleeding, perforation, reaction to medications and missed diagnosis were discussed with the patient and informed consent was obtained. Instrument: Olympus PCF H 190 L variable stiffness pediatric colonoscope Monitoring: Vital signs and clinical assessment, intermittent blood pressure monitoring, continuous EKG monitoring, Pulse oximetry and Carbon Dioxide monitoring were done throughout the procedure. Colon withdrawl time was 20 minutes. Procedure: The patient was placed in the left lateral decubitis position and pre-procedure medications were administered. After a digital rectal examination of the ano-rectum, the video colonoscope was inserted into the rectum and advanced through the colon to the cecum. The colonoscope was slowly withdrawn in a retrograde panoramic fashion and the colon mucosa was carefully examined including a retroflexed view of the rectum. Findings and interventions are described below. Procedure Difficulty: : Without difficulty Findings: Terminal Ileum: Not evaluated Cecum: Normal Ascending Colon: Normal Transverse Colon: Normal Descending Colon: Moderate diverticulosis Sigmoid Colon: Moderate diverticulosis Rectum: Normal Ano-rectum: Small internal hemorrhoids Colon preparation: Good after some irrigation Impression and Post Procedure Diagnosis: Endoscopy Findings: ESOPHAGUS: Circular folds noted in the proximal esophagus during intubation - biopsies obtained to check for EOE. GE junction at 34 cms, small hiatal hernia 34 to 36 cms. No esophagitis or Hassan's. STOMACH: Diffuse gastritis DUODENUM: Normal - biopsied to check for celiac sprue Colonoscopy Findings: No polyps were detected Moderate diverticulosis seen in the left colon Small hemorrhoids on retroflexed exam. Plan: Await pathology results Patient has an appointment on 02/26/23 in the [facility] with Dr Hull. Repeat Colonoscopy in 10 years. Above findings were reviewed with the patient and GERD and diverticulosis handouts were given in the discharge area
[2023-02-12 10:58] VITALS: BP 115/74; PULSE 66; RESP 16; TEMP 36.1; O2SAT 96
[2023-02-12 11:13] VITALS: BP 128/71; PULSE 67; RESP 16; O2SAT 98
[2023-02-12 11:28] VITALS: BP 138/69; PULSE 58; RESP 18; TEMP 36.3; O2SAT 98
== END 2023-02-12 13:03 | disposition home or self-care (01) ==
PROVIDERS: PCP Family Medicine; Visit Provider Internal Medicine Gastroenterology
PROC: (CPT 43239; principal; 2023-02-12 09:20)
DX: Z12.11 Encounter for screening for malignant neoplasm of colon (principal); K57.30 Diverticulosis of large intestine without perforation or abscess without bleeding; K64.8 Other hemorrhoids; K29.70 Gastritis, unspecified, without bleeding; K21.9 Gastro-esophageal reflux disease without esophagitis; K44.9 Diaphragmatic hernia without obstruction or gangrene; R10.11 Right upper quadrant pain; R63.4 Abnormal weight loss; J45.909 Unspecified asthma, uncomplicated; E11.22 Type 2 diabetes mellitus with diabetic chronic kidney disease; I13.0 Hypertensive heart and chronic kidney disease with heart failure and stage 1 through stage 4 chronic kidney disease, or unspecified chronic kidney disease; N18.30 Chronic kidney disease, stage 3 unspecified; I50.32 Chronic diastolic (congestive) heart failure; Z79.899 Other long term (current) drug therapy; Z79.84 Long term (current) use of oral hypoglycemic drugs
CPT/HCPCS: 43239; G0121; 82947; 88305; 88342

== ENCOUNTER → 2023-02-12 06:20 | Outpatient (BNV) | payer MEDICARE, SELFPAY | PROVIDERS: PCP Family Medicine; Visit Provider Internal Medicine Gastroenterology | DX: Z12.11 Encounter for screening for malignant neoplasm of colon (principal); K57.90 Diverticulosis of intestine, part unspecified, without perforation or abscess without bleeding; K64.8 Other hemorrhoids; R63.4 Abnormal weight loss; K21.9 Gastro-esophageal reflux disease without esophagitis | CPT/HCPCS: 43239; G0121 ==

== ENCOUNTER 2023-02-23 16:10 | Outpatient (REF) | payer MEDICARE, OTHER, SELFPAY | END 2023-02-23 16:11 | disposition home or self-care (01) | LOC: HO.HHCX 16:10 | PROVIDERS: Visit Provider Nurse Practitioner Family | DX: M79.641 Pain in right hand (principal) | CPT/HCPCS: 73130 ==

== ENCOUNTER 2023-02-26 12:19 | Outpatient (AMB) | payer MEDICARE, SELFPAY ==
[2023-02-26 12:21] VITALS: BP 102/63; PULSE 76; RESP 76; BMI 22.7
--- NOTE | 2023-02-26 12:21 | MHC.OFFVIS ---
Intake Vital Signs 02/26/23 12:21 Height 5 ft Weight 116 lb 6.465 oz BMI 22.7 BP 102/63 Blood Pressure Location Lt brachial Position Sitting Respiration 76 H Pulse 76 Intake Visit Reasons: s/p DBL Intake Note: Patient presents to in office visit today in postoperative follow up of colonoscopy and EGD. Patient underwent colonoscopy and EGD on 02/13/[address] Hull. CC: Patient c/o RUQ abdominal pain after she eats.She reports having blood in his urine for years. She received her Shingrix vaccine last Wednesday and reports the next day she was having vertigo, vomits, fever and diarrhea but she felt better after that day. 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 11/16/22: Pt accompanied by her and daughter. Pt reports heartburn sensation for almost a decade now. Happens after food and associated with nausea. Has led to significant decrease in appetite with resultant weight loss of almost 4 lbs in just last one month. Pain often then localises to RUQ. Has been taking pepcid and carafate - feels that carafate helps more. Also takes Omeprazole 20 PRN. Pt also takes naproxen occasionally for that same abdominal pain. Does not smoke or drink. Has never had an EGD, last colo >10 years ago in [place]. Does not remember if she had polyps. s/p CCY. Of note, also reports spasm in around her umbilicus whenever she laughs or with any sudden movement and is concerned for ? hernia. 12/14/22: Here with her . Reports improvement in abdominal pain however heartburn continues to be an issue despite taking PPI as prescribed now i.e daily at least 30-40 mins before first meal of the day. Continues to use Naproxen frequently. 02/12/23: EGD/colo: ESOPHAGUS: Circular folds noted in the proximal esophagus during intubation - biopsies obtained to check for EOE. GE junction at 34 cms, small hiatal hernia 34 to 36 cms. No esophagitis or Hassan's. STOMACH: Diffuse gastritis DUODENUM: Normal - biopsied to check for celiac sprue Colonoscopy Findings: No polyps were detected Moderate diverticulosis seen in the left colon Small hemorrhoids on retroflexed exam. Path: A. Small bowel, biopsy: Small bowel mucosa with preserved villi and no specific change; no evidence of celiac disease. B. Gastric antrum, biopsy: Gastric antral mucosa with reactive changes and minimal chronic active gastritis; negative for intestinal metaplasia and dysplasia. C. Esophagus, proximal, biopsy: Squamous mucosa with no specific change; no evidence of eosinophilic esophagitis; no columnar mucosa present. 02/26/23: Here for post endoscopy follow up. 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 Reports intermittent R sided discomfort still. Also notices heartburn with nausea some nights despite taking pepcid and then has to take omeprazole on top. Has stopped all nsaids including naproxen. Reviewed results of EGD and colo including non-H pylori gastritis. [facility] Medical History Atherosclerotic cardiovascular disease PVD (peripheral vascular disease) Breast nodule Urinary incontinence Osteoporosis Dementia in Alzheimer's disease Chronic diastolic (congestive) heart failure Hypertension Vitamin D deficiency Carpal tunnel syndrome Cervical disc disorder CKD (chronic kidney disease), stage II TONY (generalized anxiety disorder) Vertigo CAD (coronary artery disease) GERD (gastroesophageal reflux disease) Migraine Diabetes mellitus Asthma Surgical History Hx of cardiac catheterization History of hernia repair History of left inguinal hernia repair History of right inguinal hernia repair History of cholecystectomy Hx of colonoscopy History of esophagogastroduodenoscopy (EGD) Family History Mother Heart problem Social History Alcohol intake: never Patient Tobacco Use Status: Never used Tobacco Review of Systems Const All systems reviewed & are unremarkable except as noted in HPI and below Physical Exam Vital Signs: Last Vital Signs Pulse 76 02/26/23 12:21 Resp 76 H 02/26/23 12:21 BP 102/63 02/26/23 12:21 BMI result Body Mass Index 22.7 Gen appear: NAD HEENT: nonicteric, no cervical lymphadenopathy Chest: CTA CVS: Regular S1/S2 Abd: soft, nontender, nondistended, bowel sounds + Ext: no peripheral edema Neuro: A/Ox3, noted to move all extremities spontaneously Psych: interacting appropriately Assessment & Plan Assessment & Plan (1) Chronic heartburn: Code(s): R12 - Heartburn (2) Right upper quadrant pain: Code(s): R10.11 - Right upper quadrant pain Plan Discussed with the pt that since gastritis noted despite taking pepcid qnightly, would recommend switching to PPI therapy x 4 weeks and then can go back to pepcid if needed. Otherwise, remaining EGD and colo unremarkable. Further colo screening not recommended due to age, but can be considered in 10 years if pt still in good health. Follow up PRN Medications: New omeprazole 20 mg PO DAILY 28 caps 0RF 4 weeks Coding Level of Care Code Est Pt Level 4 (41192) Diagnoses Chronic heartburn R12 Right upper quadrant pain R10.11
== END 2023-02-26 13:20 | disposition home or self-care (01) ==
PROVIDERS: PCP Family Medicine; Visit Provider Internal Medicine
DX: R12 Heartburn (principal); R10.11 Right upper quadrant pain
CPT/HCPCS: 99214

== ENCOUNTER → 2023-02-26 12:19 | Outpatient (BNVA) | payer MEDICARE, SELFPAY | PROVIDERS: PCP Family Medicine; Visit Provider Internal Medicine | DX: R10.11 Right upper quadrant pain (principal); R12 Heartburn | CPT/HCPCS: 99212 ==

== ENCOUNTER 2023-03-03 14:45 | Outpatient (AMB) | payer MEDICARE, SELFPAY ==
[2023-03-03 14:50] VITALS: BP 110/62; PULSE 66; TEMP 36.4; O2SAT 92; BMI 22.8
--- NOTE | 2023-03-03 14:50 | A.OFFVIS_ITS ---
Intake Vital Signs 03/03/23 14:50 Height 5 ft Weight 116 lb 13.52 oz BMI 22.8 BP 110/62 Blood Pressure Location Lt brachial Position Sitting Pulse 66 Pulse Source Pulse Oximeter Temp 97.5 F Temp Source Skin Pulse Oximetry (%) 92 Oxygen Delivery Method Room Air Intake Visit Reasons: Polyarthralgia Intake Note: New patient presents to office today for polyarthralgia. 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 2 years ago she also saw a floor installation mechanic in [place] who updated imaging she has brought to office today. c/o multiple joint pains, muscle weakness, and muscle tenderness Incident Response Lead Required: Yes Incident Response Lead Language: Site Damage Prevention Technician Name: Inez-daughter Information Interpreted: clinical only Accompanied by: Daughter Allergies No Known Allergies Allergy (Verified 03/03/23 14:55) Medication List - Last Reconciled 03/03/23 by Sandrine South MD albuterol sulfate 90 mcg/actuation (Proventil HFA) 2 puffs inhalation Q4H PRN aspirin 81 mg PO QAM cwhmefnhoa-amfrwcouvlksy-vtbj 50-325-40 mg 1 tab PO Q6H PRN calcium carbonate 600 mg PO BID celecoxib 100 mg PO BID cyclobenzaprine 10 mg PO BEDTIME diclofenac sodium 1% topical estradiol 0.01%(0.1mg/gram) vaginally 3 times a week; pea sized amount to urethra 3 times a week 30 days famotidine 40 mg PO BEDTIME fluticasone propionate 110 mcg/actuation (Flovent HFA) 1 puff inhalation BID lidocaine 5% 1 patch topical DAILY losartan 25 mg PO QAM metformin 500 mg PO TID montelukast 10 mg PO QAM multivitamin 1 tab PO QAM omeprazole 20 mg PO DAILY 4 weeks quetiapine 25 mg PO BEDTIME rosuvastatin 20 mg PO QAM sucralfate (Carafate) 10 mL PO Q6H tadalafil (Cialis) 5 mg PO DAILY 90 days venlafaxine ER 37.5 mg PO DAILY HPI HPI Comments History of Present Illness Details This is a 77-year-old female who presents for evaluation of diffuse pain. Patient states that she used to see a floor installation mechanic back in [place] and and she was on Boniva for more than 10 years. She stated that she had her ovaries removed for a benign cause at age 46. States that she had a sacral fra cture 20 years ago after she fell on the stairs. Boniva was discontinued 1-2 years ago. Who about a week ago patient went to urgent care due to abrupt onset of right index finger flexion contracture and pain. She was referred to Hand surgery. Right hand x-ray only showed degenerative changes. Today she is complaining of the same pain in her right hand. She also complains of lower back pain. [facility] Medical History Atherosclerotic cardiovascular disease PVD (peripheral vascular disease) Breast nodule Urinary incontinence Osteoporosis Dementia in Alzheimer's disease Chronic diastolic (congestive) heart failure Hypertension Vitamin D deficiency Carpal tunnel syndrome Cervical disc disorder CKD (chronic kidney disease), stage II TONY (generalized anxiety disorder) Vertigo CAD (coronary artery disease) GERD (gastroesophageal reflux disease) Migraine Diabetes mellitus Asthma Surgical History Hx of cardiac catheterization History of hernia repair History of left inguinal hernia repair History of right inguinal hernia repair History of cholecystectomy Hx of colonoscopy History of esophagogastroduodenoscopy (EGD) Family History Mother Heart problem Arthritis Social History Alcohol intake: never Patient Tobacco Use Status: Never used Tobacco Female Reproductive History Menstrual Total pregnancies: 2 Review of Systems Const Reports fatigue, Reports headache(s) and Reports weakness Eyes Reports blurry vision and Reports diplopia ENT Reports dysphagia, Reports dizziness, Reports headache(s) and Reports hoarseness Card Reports dyspnea Resp Reports dyspnea and Reports wheezing GI Reports dysphagia, Reports heartburn and Reports diarrhea Reports hematuria and Reports vaginal dryness Musc Reports arthralgias and Reports stiffness Skin/Breast Reports alopecia and Reports unusual bruising Neuro Reports dizziness, Reports headache(s) and Reports weakness Psych Reports anxiety and Reports depression Endo Reports fatigue Aller/Immun Reports wheezing Physical Exam Vital Signs: Last Vital Signs Temp 97.5 F 03/03/23 14:50 Pulse 66 03/03/23 14:50 BP 110/62 03/03/23 14:50 Pulse Ox 92 03/03/23 14:50 Oxygen Delivery Method Room Air 03/03/23 14:50 BMI result Body Mass Index 22.8 Const General: cooperative, healthy appearing and comfortable Nutritional Appearance: average body habitus Orientation/consciousness: patient oriented x3 Limitations: no limitations HEENT Head: Yes normocephalic and Yes atraumatic Mouth: moist mucous membranes Resp Effort & Inspection: normal respiratory effort and able to speak in complete sentences Auscultation: clear to auscultation bilaterally Cardio Rate: regular rate Skin General skin exam: no rashes or lesions noted Neuro General: patient oriented x3 Extrem Other: Patient would not allow me to touch her right hand. She showed me a picture of the episode 1 her right was flexed. Looks like a trigger finger. Upon inspection only: She has osteoarthritic changes of both hands with no active synovitis. Results Reviewed Results Reviewed: DEXA 03/2021 Impression L-spine T-score-1.9? Left femoral neck T-score -2.7? Total left hip T-score -2.0 Assessment & Plan Assessment & Plan (1) Osteoporosis: Code(s): M81.0 - Age-related osteoporosis without current pathological fracture Qualifiers: Osteoporosis type: age-related Presence of current pathological fracture: without current pathological fracture Qualified Code(s): M81.0 - Age- related osteoporosis without current pathological fracture Plan: This is a 77-year-old female who presents for evaluation of diffuse pain. She has history of osteoporosis. Per patient her ovaries were removed at age 46 due to a benign cause. Stated that she had a sacral fracture 20 years ago when she fell down the stairs. She took Boniva for about 10 years and stopped it 2 years ago. She does not recall ever being on any other medicines for osteoporosis. DEXA scan to 03/2021 showed osteoporosis with T-score-2.7 in the left femoral n gurinder. Will repeat DEXA scan Advised patient to bring records from her previous floor installation mechanic and records of previous bone density scans. (2) Degenerative disc disease, lumbar: Code(s): M51.36 - Other intervertebral disc degeneration, lumbar region Plan: Patient not interested in pain management referral. Referred to PT. (3) Trigger finger, right index finger: Code(s): M65.321 - Trigger finger, right index finger Plan: Patient showed me a picture of an episode where her right finger was flexed. I was not able to palpate her hands. This is likely a trigger finger. Right hand x-ray was unremarkable except for degenerative changes. She has history of trigger finger surgery in the right hand years ago. Advised patient to try Voltaren gel. Can consider a trigger finger injection next visit, patient might see hand surgery before her next appointment with me. Advised patient to consider trigger finger injected if offered my hand surgeon (4) Fibromyalgia, primary: Code(s): M79.7 - Fibromyalgia Plan: Follow-up with PCP Plan I spent 46 minutes reviewing patient's chart, evaluating patient, ordering diagnostic workup, counseling patient & her daughter & documenting in the chart Orders: Orders PT Evaluation and Treatment Today M51.36 - Other intervertebral disc degeneration, lumbar region XR DEXA axial skeleton Today M81.0 - Age-related osteoporosis without current pathological fracture Coding Level of Care Code New Pt Level 4 (94743) Diagnoses Age-related osteoporosis without current pathological fracture M81.0 Osteoporosis type: age-related Presence of current pathological fracture: without current pathological fracture Degenerative disc disease, lumbar M51.36 Trigger finger, right index finger M65.321 Fibromyalgia, primary M79.7
== END 2023-03-03 15:36 | disposition home or self-care (01) ==
LOC: HO.RHE 14:45
PROVIDERS: PCP Family Medicine; Visit Provider Student in an Organized Health Care Education/Training Program
DX: M81.0 Age-related osteoporosis without current pathological fracture (principal); M51.36 Other intervertebral disc degeneration, lumbar region; M65.321 Trigger finger, right index finger; M79.7 Fibromyalgia
CPT/HCPCS: 99204

== ENCOUNTER → 2023-03-03 14:45 | Outpatient (BNVA) | payer MEDICARE, SELFPAY | PROVIDERS: PCP Family Medicine; Visit Provider Student in an Organized Health Care Education/Training Program ==

== ENCOUNTER 2023-03-08 15:24 | Outpatient (REF) | payer MEDICARE, OTHER, SELFPAY ==
--- NOTE | 2023-03-08 16:23 | PFT_ITS ---
INDICATIONS: None documented. SPIROMETRY: The FEV1 to FVC of 62% with the FEV1 of 1.98 L, which is 133% predicted and FVC of 2.28 L, which is 139% predicted. There was a significant response to bronchodilators noted. Maximum voluntary ventilation is 57% predicted. LUNG VOLUMES: Total lung capacity 82% predicted with a residual volume of 60% predicted and diffusion capacity of 76% predicted. COMPARISONS: None. INTERPRETATION: There are some obstructive ventilatory defects, consistent of mild COPD. There is a significant response to bronchodilators noted. There is some moderate decrease in maximum voluntary ventilation secondary to likely deconditioning. Lungs volumes are within normal limits. The patient does have a mild diffusion impairment, clinical correlation warranted. Maxwell Thibodeaux MD MR/MODL / [id number]
== END 2023-03-08 15:25 | disposition home or self-care (01) ==
LOC: HO.RESP 15:24
PROVIDERS: PCP Family Medicine; Visit Provider Nurse Practitioner Family
DX: R06.02 Shortness of breath (principal)
CPT/HCPCS: 94010; 94727; 94729

== ENCOUNTER → 2023-03-08 16:23 | Outpatient (BNV) | payer MEDICARE, SELFPAY | PROVIDERS: PCP Family Medicine; Visit Provider Hospitalist | DX: R06.02 Shortness of breath (principal) | CPT/HCPCS: 94060; 94727; 94729 ==

== ENCOUNTER 2023-03-23 13:45 | Outpatient (AMB) | payer MEDICARE, SELFPAY ==
[2023-03-23 14:02] VITALS: BP 104/60; PULSE 78; O2SAT 99; BMI 22.7
--- NOTE | 2023-03-23 14:02 | MHC.OFFVIS ---
Intake Vital Signs 03/23/23 14:02 Height 5 ft Weight 116 lb BMI 22.7 BP 104/60 Blood Pressure Location Lt brachial Position Sitting Pulse 78 Pulse Source Pulse Oximeter Pulse Oximetry (%) 99 Oxygen Delivery Method Room Air Intake Visit Reasons: Abnormal PFT Bolt Maker Required: Yes Bolt Maker Name: Hayley #[id number] Leather Goods Sales Representative: Leather Goods Sales Representative offered & declined Accompanied by: Self / Same As Patient Allergies No Known Allergies Allergy (Verified 03/23/23 14:05) Medication List - Last Reconciled 03/23/23 by Linette Mike LPN albuterol sulfate 90 mcg/actuation (Proventil HFA) 2 puffs inhalation Q4H PRN aspirin 81 mg PO QAM fgrvbvbeon-bhdvsmwkkuxgl-sldo 50-325-40 mg 1 tab PO Q6H PRN calcium carbonate 600 mg PO BID celecoxib 100 mg PO BID cyclobenzaprine 10 mg PO BEDTIME diclofenac sodium 1% topical estradiol 0.01%(0.1mg/gram) vaginally 3 times a week; pea sized amount to urethra 3 times a week 30 days famotidine 40 mg PO BEDTIME fluticasone propionate 110 mcg/actuation (Flovent HFA) 1 puff inhalation BID lidocaine 5% 1 patch topical DAILY losartan 25 mg PO QAM metformin 500 mg PO TID montelukast 10 mg PO QAM multivitamin 1 tab PO QAM omeprazole 20 mg PO DAILY 4 weeks quetiapine 25 mg PO BEDTIME rosuvastatin 20 mg PO QAM sucralfate (Carafate) 10 mL PO Q6H tadalafil (Cialis) 5 mg PO DAILY 90 days venlafaxine ER 37.5 mg PO DAILY HPI Abnormal PFT HPI Details Ed is a very pleasant 77 year old, never smoker, with underlying childhood asthma, GERD, osteoporosis and diastolic dysfunction. She was referred for pulmonary evaluation by PCP. She is suboptimally controlled on Flovent and albuterol MDI. She reports intermittent chest tightness, dry cough, wheezing and dyspnea with or without exertion. She also reports intermittent allergic symptoms, denies recent allergy testing. Her mother, smoker, with asthma/COPD, otherwise no other pertinent family history. 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 Had recent cardiac evaluation, overall unremarkable. [facility] Medical History Atherosclerotic cardiovascular disease PVD (peripheral vascular disease) Breast nodule Urinary incontinence Osteoporosis Dementia in Alzheimer's disease Chronic diastolic (congestive) heart failure Hypertension Vitamin D deficiency Carpal tunnel syndrome Cervical disc disorder CKD (chronic kidney disease), stage II TONY (generalized anxiety disorder) Vertigo CAD (coronary artery disease) GERD (gastroesophageal reflux disease) Migraine Diabetes mellitus Asthma Surgical History Hx of cardiac catheterization History of hernia repair History of left inguinal hernia repair History of right inguinal hernia repair History of cholecystectomy Hx of colonoscopy History of esophagogastroduodenoscopy (EGD) Family History Mother Heart problem Arthritis Social History (Updated 03/23/23 @ 14:13 by Linette Mike LPN) Alcohol intake: never Patient Tobacco Use Status: Never used Tobacco Review of Systems Const Denies chills, Denies excessive sweating, Denies fever(s), Denies headache(s) and Denies night sweats Eyes Denies dry eyes, Denies irritation and Denies itchy eyes ENT Reports Normal hearing present, Denies headache(s), Denies nasal congestion, Denies nasal discharge, Denies post nasal drip and Denies sore throat Card Denies chest pain, Denies chest pain at rest, Denies chest pain with activity, Denies claudication, Denies leg edema, Denies dyspnea, Denies orthopnea and Denies paroxysmal nocturnal dyspnea Resp Denies chest congestion, Denies excessive phlegm production, Denies pain on inspiration, Denies pain with cough, Denies dyspnea and Denies stridor Musc Denies myalgias Neuro Reports Normal hearing present and Denies headache(s) Endo Denies excessive sweating Dav/Lymph Denies lymphadenopathy Aller/Immun Denies itchy eyes and Denies seasonal rhinorrhea Physical Exam Vital Signs: Last Vital Signs Pulse 78 03/23/23 14:02 BP 104/60 03/23/23 14:02 Pulse Ox 99 03/23/23 14:02 Oxygen Delivery Method Room Air 03/23/23 14:02 BMI result Body Mass Index 22.7 Const General: cooperative, healthy appearing, comfortable, no acute distress, well developed and alert Orientation/consciousness: patient oriented x3 Limitations: no limitations HEENT Head: Yes normal to inspection, Yes normocephalic and Yes atraumatic Ears: hearing grossly normal bilaterally and external ears normal Eyes General: appearance normal, both eyes and all related structures Eyelids: Yes eyelids normal Sclerae: sclerae normal EOM: EOMs intact bilaterally Neck Neck: Yes normal visual inspection and Yes no lymphadenopathy Lymphatic: no lymphadenopathy noted Chest Chest palpation & inspection: normal inspection of the chest Resp Other: diminished lung sounds bilaterally, improved after nebulizer Effort & Inspection: normal respiratory effort, able to speak in complete sentences, no audible wheezes, no stridor, not tachypneic, no tripod positioning and no use of accessory muscles Cardio Jugular venous distension: no JVD Rate: regular rate Rhythm: regular rhythm Skin Other: warm, dry General skin exam: no rashes or lesions noted Neuro General: patient oriented x3 Cranial nerves: Yes Normal hearing present Cognition (Neuro): normal cognition Extrem General: Yes normal to inspection, Yes capillary refill normal, Yes no clubbing, cyanosis or edema and Yes no pedal edema Psych Appearance: grossly normal and well kempt Speech and movement: Normal speech and movement present and Clear speech present Affect: normal affect Attitude: cooperative Thought process: Normal thought process present Thought content: Normal thought content present Insight: Good insight present (Psych) Judgement: Good judgement present (Psych) Office Procedures Nebulizer Treatment Nebulizer Treatment [id number]-[id number]/MDI RX initial, or Nebulizer Subsequent Treatment Office Meds levalbuterol HCl 1.25 mg/3 mL solution for nebulization Performing Provider: Marcia Gracia NP Performing Location: [facility] Administered by: Linette Mike LPN on 03/23/23 14:54 Dose Route Admin Location Dispensed Lot Number Expiration Date [facility] Abstract Searcher 1.25 mg inhalation 3 mL [id number] 08/14/24 75815-015-05 [employer] Results Reviewed Results Reviewed: Assessment & Plan Assessment & Plan (1) Asthma-COPD overlap syndrome: Code(s): J44.89 - Other specified chronic obstructive pulmonary disease Plan Latias symptoms are likely related to underlying asthma/COPD, however does have cardiac history. She had a recent PFT which revealed mild obstructive ventilatory defects, consistent with COPD. She did have a significant response to bronchodilators and there was moderate decrease in maximum voluntary ventilation likely secondary to deconditioning. Lungs volumes are within normal limits. Mild decrease in diffusion capacity. Will send for chest CT to assess for any parenchymal etiologies contributing to decreased DLCO. Patient reported intermittent allergic symptoms, will send for labs. Patient also reports intermittent chest discomfort that has been present for over a year, cardiology workup did not reveal significant abnormalities. Last EKG reveals normal sinus rhythm, echo from 11/12/2022 EF 65-70%, grade 1 diastolic dysfunction, no valve abnormalities. Holter monitor 11/12/2022 reveals sinus rhythm with average heart rate 72, rare PACs. Nebulizer was given in office with mild symptomatic improvement. Will change Flovent to Advair HFA. All questions were answered and patient is in agreement of plan. Will follow up in 6-8 weeks to review response to inhaler, lab results and CT results. Orders: Orders CT chest wo IV con Today R06.00 - Dyspnea, unspecified Rast Allergen 03/23/23 J44.89 - Other specified chronic obstructive pulmonary disease Complete Blood Count Auto Diff 03/23/23 J44.89 - Other specified chronic obstructive pulmonary disease Immunoglobulin E 03/23/23 J44.89 - Other specified chronic obstructive pulmonary disease AMB Nebulizer Treatment 03/23/23 J44.89 - Other specified chronic obstructive pulmonary disease Medications: New Advair HFA 230-21 mcg/actuation (fluticasone propion-salmeterol) 2 puffs inhalation Q12H 1 ea 3RF NS Coding Level of Care Code New Pt Level 4 (30779) Diagnoses Asthma-COPD overlap syndrome J44.89 CPT Codes Nebulizer Treatment - Nebulizer Treatment, initial or subsequent: [id number]/MDI RX initial, or Nebulizer Subsequent Treatment ([id number])
== END 2023-03-23 15:04 | disposition home or self-care (01) ==
PROVIDERS: PCP Family Medicine; Referring Provider Nurse Practitioner Family; Visit Provider Nurse Practitioner Family
DX: J44.89 Other specified chronic obstructive pulmonary disease (principal)
CPT/HCPCS: 99204

== ENCOUNTER → 2023-03-23 13:45 | Outpatient (BNVA) | payer MEDICARE, SELFPAY | PROVIDERS: PCP Family Medicine; Referring Provider Nurse Practitioner Family; Visit Provider Nurse Practitioner Family | DX: J44.89 Other specified chronic obstructive pulmonary disease (principal) | CPT/HCPCS: 94640; 99202 ==

== ENCOUNTER 2023-03-31 14:15 | Outpatient (AMB) | payer MEDICARE, SELFPAY ==
--- NOTE | 2023-03-31 14:20 | MHC.OFFVIS ---
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 States her index finger locks and is painful to pop finger up. States she is ready to discuss surgical intervention. 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 She complains of painful locking of her right index finger. She has a hx of a trigger release in her right [ ] finger several years ago. She has a hx of Fibromyalgia, Polyarthralgia, and DM. PFSH Medical History Atherosclerotic cardiovascular disease PVD (peripheral vascular disease) Breast nodule Urinary incontinence Osteoporosis Dementia in Alzheimer's disease Chronic diastolic (congestive) heart failure Hypertension Vitamin D deficiency Carpal tunnel syndrome Cervical disc disorder CKD (chronic kidney disease), stage II TONY (generalized anxiety disorder) Vertigo CAD (coronary artery disease) GERD (gastroesophageal reflux disease) Migraine Diabetes mellitus Asthma Surgical History Hx of cardiac catheterization History of hernia repair History of left inguinal hernia repair History of right inguinal hernia repair History of cholecystectomy Hx of colonoscopy History of esophagogastroduodenoscopy (EGD) Family History Mother Heart problem Arthritis Social History Alcohol intake: never Patient Tobacco Use Status: Never used Tobacco Review of Systems Const All systems reviewed & are unremarkable except as noted in HPI and below Physical Exam Vital Signs: BMI result Body Mass Index 22.7 Const General: cooperative, healthy appearing and no acute distress Orientation/consciousness: patient oriented x3 HEENT Head: Yes normocephalic and Yes atraumatic Eyes EOM: EOMs intact bilaterally Resp Effort & Inspection: normal respiratory effort and able to speak in complete sentences Cardio Jugular venous distension: no JVD Skin General skin exam: turgor normal Rashes: no rashes Neuro General: patient oriented x3 Extrem Other: Evaluation of Right Upper Extremity: The patient is alert, oriented, and in no acute distress Neuro: Median, Ulnar, Radial nerves motor and sensory intact and sensation is normal to the tips of all digits Vascular: Cap refill brisk ROM: She initially has some stiffness as she was not bending her index finger, but we worked through this in clinic She did have some anxiety about trying to bring her index finger into flexion, and was apprehensive about any pain she might feel to do so. With encouragement we were able to get her to make a nice fist and then bring the fingers into extension. She can make a fist and extend all her digits Visible and palpable locking and catching of the index finger Tender over the index finger A1 patricia. Skin: No lacerations or abrasions. General: No Ecchymosis. No Erythema or evidence of infection. Radiographs: 3 views of the right hand from 02/23/23 were reviewed by me today in clinic. They show no fractures or dislocations. There are early arthritic changes in the basal joint, index finger MCP joint, and multiple DIP joints. Psych Appearance: grossly normal Affect: normal affect Attitude: cooperative Assessment & Plan Assessment & Plan (1) Trigger finger, right index finger: Code(s): M65.321 - Trigger finger, right index finger (2) Diabetes mellitus: Code(s): E11.9 - Type 2 diabetes mellitus without complications Plan Assessment & Plan: 1. Right index finger trigger finger I educated her about this condition I discussed operative and non-operative treatment options The patient would like to proceed with surgery The risks and benefits of operative treatment were discussed with the patient and the patient wishes to proceed with surgery. These risks include, but are not limited to risk of damage to blood vessels, nerves, tendons, infection, recurrence, incomplete relief of preoperative symptoms, persistent pain, possible need for further surgery and the risks associated with regional blocks and anesthesia. The plan is to take the patient to the operating room sometime in the next few weeks for the following procedures: 1. Right index trigger finger release, under local All of the preoperative paperwork including the consent was filled out today. All the patient's questions were answered. The patient understands that they will be contacted by our supervisor industrial garment soon to schedule this procedure She denies blood thinners, asthma, lung, kidney issues She is a Diabetic, her most recent HgA1c was 5.4% on 11/16/22 She has a hx of CHF and denies any blood thinners Scribed for Oriana Beckford MD by Cole Coronel, medical doctor nuclear medicine, on 03/31/23 at 2:30 PM, EST. Coding Level of Care Code New Pt Level 4 (17400) Diagnoses Trigger finger, right index finger M65.321 Diabetes mellitus E11.9
[2023-03-31 14:21] VITALS: BMI 22.7
== END 2023-03-31 14:36 | disposition home or self-care (01) ==
PROVIDERS: PCP Family Medicine; Visit Provider Orthopaedic Surgery
DX: M65.321 Trigger finger, right index finger (principal)
CPT/HCPCS: 99204

== ENCOUNTER → 2023-03-31 14:15 | Outpatient (BNVA) | payer MEDICARE, SELFPAY | PROVIDERS: PCP Family Medicine; Visit Provider Orthopaedic Surgery | DX: M65.321 Trigger finger, right index finger (principal); M79.7 Fibromyalgia; M25.50 Pain in unspecified joint; E11.9 Type 2 diabetes mellitus without complications | CPT/HCPCS: 99202 ==

== ENCOUNTER 2023-04-01 14:27 | Outpatient (REF) | payer MEDICARE, SELFPAY ==
--- NOTE | ~2023-04-01 | MM_ITS ---
EXAMINATION: BONE DENSITOMETRY CLINICAL INDICATION: Age-related osteoporosis without current pathological fracture. COMPARISON: This is the patient's baseline examination. TECHNIQUE: Using a [employer] DXA System (software version: 13.1) manufactured by [employer], dual-energy x-ray absorptiometry was performed of the lumbar spine and left hip. The images are of good technical quality. Summary results are attached. FINDINGS: LEFT FEMUR, NECK: BMD 0.684 g/cm2, Z-score -0.4, T-score -2.5, osteoporosis. LEFT FEMUR, TOTAL: BMD 0.731 g/cm2, Z-score -0.2, T-score -2.2, osteopenia. AP SPINE L1-L4: BMD 0.909 g/cm2, Z-score -0.3, T-score -2.3, osteopenia. IDENTIFIED RISK FACTORS: Bilateral oophorectomy, early menopause, height loss, hysterectomy, low calcium intake, osteoporosis, recurrent falls, secondary osteoporosis. HISTORY OF FRACTURE: None listed. MEDICATIONS: Calcium, bisphosphonate. MM/XR DEXA axial skeleton IMPRESSION: 1. DIAGNOSIS: Osteoporosis based on the lowest T-score value of -2.5 in the femoral neck applying World Health Organization criteria. 2. 10-YEAR FRACTURE RISK PREDICTION, FRAX: According to the guidelines, FRAX calculation should only be performed on patients in the osteopenia bone density category. Therefore, FRAX was not performed on this patient. 3. Treatment Recommendations: NOF guidelines recommend consideration for treatment in postmenopausal women and men age 50 and older presenting with the following: -A hip or vertebral (clinical or morphometric) fracture. -T-score less than or equal to -2.5 at the femoral neck or spine after appropriate evaluation to exclude secondary causes. -Low bone mass at the hip or spine and a 10-year fracture probability by FRAX of greater than or equal to 3% for hip fracture or greater than or equal to 20% for major osteoporotic fracture based on the [place] adapted WHO algorithm. 4. Other Recommendations: All treatment decisions require clinical judgment and consideration of individual patient factors, including patient preferences, comorbidities, previous drug use, risk factors not captured in the FRAX model (e.g. frailty, falls, vitamin D deficiency, increased bone turnover, interval significant decline in bone density) and possible under or overestimation of fracture risk by FRAX. Additional medical evaluation for secondary cause of low bone mineral density may be appropriate. FUTURE SCAN RECOMMENDATION: People with diagnosed cases of osteoporosis or at high risk for fracture should have regular bone mineral density tests. For patients eligible for Medicare, routine testing is allowed once every 2 years. The testing frequency can be increased to one year for patients who have rapidly progressing disease, those who are receiving or discontinuing medical therapy to restore bone mass, or have additional risk factors.
== END 2023-04-01 14:28 | disposition home or self-care (01) ==
LOC: HO.MAMMO 14:27
PROVIDERS: PCP Nurse Practitioner Family; Visit Provider Student in an Organized Health Care Education/Training Program
DX: Z13.820 Encounter for screening for osteoporosis (principal); M81.0 Age-related osteoporosis without current pathological fracture; Z78.0 Asymptomatic menopausal state
CPT/HCPCS: 77080

== ENCOUNTER 2023-04-07 15:28 | Outpatient (REF) | payer MEDICARE, OTHER, SELFPAY ==
--- NOTE | ~2023-04-07 | XR_ITS ---
EXAMINATION: XR HAND, RIGHT CLINICAL INFORMATION: Pain after falling COMPARISON: None available. TECHNIQUE: PA, lateral, and oblique views of the right hand. FINDINGS: There is degenerative change observed at the first CMC. There is dystrophic calcification adjacent to the second metacarpal head. There is no fracture, dislocation or destructive process. XR/XR hand RT min 3V IMPRESSION: No acute findings.
== END 2023-04-07 15:29 | disposition home or self-care (01) ==
LOC: HO.HHCX 15:28
PROVIDERS: Visit Provider Nurse Practitioner Family
DX: R68.89 Other general symptoms and signs (principal); W19.XXXD Unspecified fall, subsequent encounter
CPT/HCPCS: 73130

== ENCOUNTER 2023-04-15 10:50 | Outpatient (REF) | payer MEDICARE, SELFPAY ==
[2023-04-15 14:24] LABS: MANUAL DIFF FLAG NO
[2023-04-15 14:32] LABS: Basophils Absolute Auto 0.1 X10*3/uL (0.0-0.2); Basophils Percent Auto 1.2 % (0-2); Eosinophils Absolute Auto 0.1 X10*3/uL (0.0-0.4); Eosinophils Percent Auto 1.6 % (0-4); Hematocrit 37.5 % (37.0-47.0); Hemoglobin 12.5 g/dl (12.0-16.0); Imm Gran Abs Auto 0.01 X10*3/uL (0.00-0.03); Imm Gran Pct Auto 0.2 % (0.0-0.4); Lymphocytes Absolute Auto 1.9 X10*3/uL (1.2-4.9); Lymphocytes Percent Auto 38.6 % (20-40); Mean Corpuscular HGB Conc 33.3 g/dl (31.0-35.0); Mean Corpuscular Hemoglobin 31.2 pg (27.0-33.0); Mean Corpuscular Volume 93.5 fL (80.0-98.0); Mean Platelet Volume 11.3 fL (9.4-12.3); Monocytes Absolute Auto 0.4 X10*3/uL (0.1-1.2); Monocytes Percent Auto 8.8 % (2-11); Neutrophils Absolute Auto 2.4 x10*3/uL (2.0-8.3); Neutrophils Percent Auto 49.6 % (45-73); Platelet Count 218 X10*3/uL (160-400); Red Blood Count 4.01 X10*6/uL (4.20-5.50); Red Cell Distribution Width 13.2 % (11.0-16.0); White Blood Count 4.9 X10*3/uL (4.8-10.8)
== END 2023-04-15 10:51 | disposition home or self-care (01) ==
LOC: HO.WFDLDS 10:50
PROVIDERS: Visit Provider Nurse Practitioner Family
DX: J44.89 Other specified chronic obstructive pulmonary disease (principal); M81.0 Age-related osteoporosis without current pathological fracture; M65.321 Trigger finger, right index finger; M79.7 Fibromyalgia; Z91.09 Other allergy status, other than to drugs and biological substances
CPT/HCPCS: 36415; 82785; 85025; 86003; 99212

== ENCOUNTER 2023-04-15 14:40 | Outpatient (AMB) | payer MEDICARE, SELFPAY ==
[2023-04-15 14:55] VITALS: BP 122/60; PULSE 79; TEMP 36.3; O2SAT 94; BMI 23.4
--- NOTE | 2023-04-15 14:55 | MHC.OFFVIS ---
Intake Vital Signs 04/15/23 14:55 Height 5 ft Weight 119 lb 14.903 oz BMI 23.4 BP 122/60 Blood Pressure Location Rt brachial Position Sitting Pulse 79 Pulse Source Pulse Oximeter Temp 97.4 F Temp Source Skin Pulse Oximetry (%) 94 Oxygen Delivery Method Room Air Intake Visit Reasons: trigger finger Intake Note: Pt last seen 03/03/23, presents today for follow up and DEXA results. She was evaluated by hand surgeon Dr Beckford on 03/31/23. Will be undergoing trigger finger release surgery may Business Analytics Specialist Required: Yes Business Analytics Specialist Name: Miguel [id number] Accompanied by: Self / Same As Patient Allergies No Known Allergies Allergy (Verified 04/15/23 15:04) Medication List - Last Reconciled 04/15/23 by Sandrine South MD Advair HFA 230-21 mcg/actuation (fluticasone propion-salmeterol) 2 puffs inhalation Q12H NS albuterol sulfate 90 mcg/actuation (Proventil HFA) 2 puffs inhalation Q4H PRN aspirin 81 mg PO QAM eaajtufyrj-osbphnefczmsg-mzfr 50-325-40 mg 1 tab PO Q6H PRN calcium carbonate 600 mg PO BID celecoxib 100 mg PO BID cyclobenzaprine 10 mg PO BEDTIME diclofenac sodium 1% topical estradiol 0.01%(0.1mg/gram) vaginally 3 times a week; pea sized amount to urethra 3 times a week 30 days famotidine 40 mg PO BEDTIME fluticasone propionate 110 mcg/actuation (Flovent HFA) 1 puff inhalation BID lidocaine 5% 1 patch topical DAILY losartan 25 mg PO QAM metformin 500 mg PO TID montelukast 10 mg PO QAM multivitamin 1 tab PO QAM omeprazole 20 mg PO DAILY 4 weeks quetiapine 25 mg PO BEDTIME rosuvastatin 20 mg PO QAM sucralfate (Carafate) 10 mL PO Q6H tadalafil (Cialis) 5 mg PO DAILY 90 days venlafaxine ER 37.5 mg PO DAILY HPI HPI Comments History of Present Illness Details presents today for follow up and DEXA results. She was evaluated by hand surgeon Dr Beckford on 03/31/23. Will be undergoing trigger finger release surgery may. Initial history: This is a 77-year-old female who presents for evaluation of diffuse pain. 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 She stated that she had her ovaries removed for a benign cause at age 46. States that she had a sacral fracture 20 years ago after she fell on the stairs. Boniva was discontinued 1-2 years ago. Who about a week ago patient went to urgent care due to abrupt onset of right index finger flexion contracture and pain. She was referred to Hand surgery. Right hand x-ray only showed degenerative changes. Today she is complaining of the same pain in her right hand. She also complains of lower back pain. [facility] Medical History Atherosclerotic cardiovascular disease PVD (peripheral vascular disease) Breast nodule Urinary incontinence Osteoporosis Dementia in Alzheimer's disease Chronic diastolic (congestive) heart failure Hypertension Vitamin D deficiency Carpal tunnel syndrome Cervical disc disorder CKD (chronic kidney disease), stage II TONY (generalized anxiety disorder) Vertigo CAD (coronary artery disease) GERD (gastroesophageal reflux disease) Migraine Diabetes mellitus Asthma Surgical History Hx of cardiac catheterization History of hernia repair History of left inguinal hernia repair History of right inguinal hernia repair History of cholecystectomy Hx of colonoscopy History of esophagogastroduodenoscopy (EGD) Family History Mother Heart problem Arthritis Social History Alcohol intake: never Patient Tobacco Use Status: Never used Tobacco Review of Systems [facility] [place]ralgias and Reports stiffness Psych Reports anxiety and Reports depression Physical Exam Vital Signs: Last Vital Signs Temp 97.4 F 04/15/23 14:55 Pulse 79 04/15/23 14:55 BP 122/60 04/15/23 14:55 Pulse Ox 94 04/15/23 14:55 Oxygen Delivery Method Room Air 04/15/23 14:55 BMI result Body Mass Index 23.4 Const General: cooperative, healthy appearing and comfortable Nutritional Appearance: average body habitus Orientation/consciousness: patient oriented x3 Limitations: ambulation with walker HEENT Head: Yes normocephalic and Yes atraumatic Mouth: moist mucous membranes Resp Effort & Inspection: normal respiratory effort and able to speak in complete sentences Neuro General: patient oriented x3 Extrem Other: osteoarthritic changes of both hands with no active synovitis. Results Reviewed Results Reviewed: DEXA 03/2021 Impression L-spine T-score-1.9? Left femoral neck T-score -2.7? Total left hip T-score -2.0 DEXA 03/2023 LEFT FEMUR, NECK: BMD 0.684 g/cm2, Z-score -0.4, T-score -2.5, osteoporosis. LEFT FEMUR, TOTAL: BMD 0.731 g/cm2, Z-score -0.2, T-score -2.2, osteopenia. AP SPINE L1-L4: BMD 0.909 g/cm2, Z-score -0.3, T-score -2.3, osteopenia. Assessment & Plan Assessment & Plan (1) Osteoporosis: Code(s): M81.0 - Age-related osteoporosis without current pathological fracture Qualifiers: Osteoporosis type: age-related Presence of current pathological fracture: without current pathological fracture Qualified Code(s): M81.0 - Age-related osteoporosis without current pathological fracture Plan: This is a 77-year-old female with osteoporosis who presents for follow-up. Per patient her ovaries were removed at age 46 due to a benign cause. Stated that she had a sacral fracture 20 years ago when she fell down the stairs. She took Boniva for about 10 years and stopped it 2 years ago. She does not recall ever being on any other medicines for osteoporosis. DEXA scan 03/2023 compared to 03/2021 is relatively stable. Can continue with Boniva holiday. Repeat DEXA 2024 Patient states that she used to take weekly vitamin D. Will check her vitamin-D level and provide vitamin-D supplementation as needed (2) Trigger finger, right index finger: Code(s): M65.321 - Trigger finger, right index finger Plan: Evaluated by Hand surgery and scheduled for release next year (3) Fibromyalgia, primary: Code(s): M79.7 - Fibromyalgia Plan: Follow-up with PCP Plan I spent 26 minutes reviewing patient's chart, evaluating patient, ordering diagnostic workup, counseling patient & documenting in the chart Orders: Orders Vitamin D 25-OH (D2 and D3) Today Z13.21 - Encounter for screening for nutritional disorder Coding Level of Care Code Est Pt Level 4 (27293) Diagnoses Age-related osteoporosis without current pathological fracture M81.0 Osteoporosis type: age-related Presence of current pathological fracture: without current pathological fracture Trigger finger, right index finger M65.321 Fibromyalgia, primary M79.7
== END 2023-04-15 15:29 | disposition home or self-care (01) ==
PROVIDERS: PCP Family Medicine; Visit Provider Student in an Organized Health Care Education/Training Program
DX: M81.0 Age-related osteoporosis without current pathological fracture (principal); M65.321 Trigger finger, right index finger; M79.7 Fibromyalgia
CPT/HCPCS: 99214

== ENCOUNTER 2023-04-15 15:28 | Outpatient (REF) | payer MEDICARE, SELFPAY | END 2023-04-15 15:29 | disposition home or self-care (01) | LOC: HO.LAB 15:28 | PROVIDERS: Visit Provider Student in an Organized Health Care Education/Training Program | DX: Z13.89 Encounter for screening for other disorder (principal) ==

== ENCOUNTER 2023-04-20 12:25 | Outpatient (AMB) | payer MEDICARE, SELFPAY ==
--- NOTE | 2023-04-20 13:25 | A.OFFVIS_ITS ---
Intake Intake Visit Reasons: 3m/PVR Intake Note: Patient is present for follow up micro hematuria/frequency/urgency Urology Medications: estrace cream, tadalafil Blood Thinner: aspirin PVR: 26ml's Operating Room Orderly Required: Yes Accompanied by: Self / Same As Patient Allergies No Known Allergies Allergy (Verified 04/20/23 14:02) Medication List - Last Reconciled 04/20/23 by Nikkie Smith, PROCESSING TECHNICIAN-BC Advair HFA 230-21 mcg/actuation (fluticasone propion-salmeterol) 2 puffs inhalation Q12H NS albuterol sulfate 90 mcg/actuation (Proventil HFA) 2 puffs inhalation Q4H PRN aspirin 81 mg PO QAM pjcmsodcsy-ggqdbviqsfkcy-vpqi 50-325-40 mg 1 tab PO Q6H PRN calcium carbonate 600 mg PO BID celecoxib 100 mg PO BID cyclobenzaprine 10 mg PO BEDTIME diclofenac sodium 1% topical estradiol 0.01%(0.1mg/gram) vaginally 3 times a week; pea sized amount to urethra 3 times a week 30 days famotidine 40 mg PO BEDTIME fluticasone propionate 110 mcg/actuation (Flovent HFA) 1 puff inhalation BID lidocaine 5% 1 patch topical DAILY losartan 25 mg PO QAM metformin 500 mg PO TID montelukast 10 mg PO QAM multivitamin 1 tab PO QAM omeprazole 20 mg PO DAILY 4 weeks quetiapine 25 mg PO BEDTIME rosuvastatin 20 mg PO QAM sucralfate (Carafate) 10 mL PO Q6H tadalafil (Cialis) 5 mg PO DAILY 90 days venlafaxine ER 37.5 mg PO DAILY HPI HPI Comments History of Present Illness Details Ed is a very pleasant 77-year-old Albanian-speaking female patient of Dr. Headley. She presents to the office today for a follow up of her ongoing urological issues. She has a past medical history of asthma, DM, migraine headaches, GERD, CAD, vertigo, anxiety, chronic kidney disease stage 2, cervical disc disorder, carpal tunnel syndrome, vitamin-D deficiency, hypertension, chronic diastolic heart failure, dementia Alzheimer's, osteoporosis, left breast nodule, and PVD. Of note, patient was seen approximately 3 months ago at which time she was started on low-dose Cialis for bladder stability. In discussion with the patient today she reports feeling lower urinary pressure she had been experiencing has since subsided. 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 In office urinalysis results reviewed with the patient today. PVR 26mls. She has previously trialed low-dose antibiotic therapy for question of interstitial cystitis. She otherwise denies visible hematuria, flank pain, foul- smelling urine, fever, and or chills. In office urinalysis results reviewed with the patient today. PVR 26mLs. Discussed at length potential causes for microscopic hematuria. Discussed further microscopic hematuria workup with in office cystoscopy as patient with previous CT, ultrasound, and urine cytology with no abnormal findings regarding the bladder and or kidneys. When asked patient denies smoking history and or any known chemical exposure. She discusses having had a cystoscopy in 2011 and again in 2020 both were normal in [place]. Discussed at length importance of drinking adequate amount of water daily. Discussed bladder triggers/irritants. Discussed at length importance of managing diabetes for improvement in urinary symptoms as well as overall health and well-being. [facility] Medical History Atherosclerotic cardiovascular disease PVD (peripheral vascular disease) Breast nodule Urinary incontinence Osteoporosis Dementia in Alzheimer's disease Chronic diastolic (congestive) heart failure Hypertension Vitamin D deficiency Carpal tunnel syndrome Cervical disc disorder CKD (chronic kidney disease), stage II TONY (generalized anxiety disorder) Vertigo CAD (coronary artery disease) GERD (gastroesophageal reflux disease) Migraine Diabetes mellitus Asthma Surgical History Hx of cardiac catheterization History of hernia repair History of left inguinal hernia repair History of right inguinal hernia repair History of cholecystectomy Hx of colonoscopy History of esophagogastroduodenoscopy (EGD) Family History Mother Heart problem Arthritis Social History Alcohol intake: never Patient Tobacco Use Status: Never used Tobacco Review of Systems Const Reports as per HPI Eyes Reports no additional complaints ENT Reports no additional complaints Card Reports as per HPI Resp Reports as per HPI GI Reports as per HPI Reports as per HPI Musc Reports as per HPI Neuro Reports as per HPI Psych Reports as per HPI Endo Reports as per HPI Physical Exam Const General: cooperative, healthy appearing, comfortable, no acute distress, well developed, alert and awake Orientation/consciousness: patient oriented x3 Limitations: no limitations HEENT Head: Yes normal to inspection, Yes normocephalic and Yes atraumatic Ears: hearing grossly normal bilaterally Eyes General: appearance normal, both eyes and all related structures Neck Neck: Yes normal visual inspection and Yes trachea midline Chest Chest palpation & inspection: normal inspection of the chest Resp Effort & Inspection: normal respiratory effort and able to speak in complete sentences Cardio Rate: regular rate GI Inspection: Yes normal to inspection General: Yes no CVA tenderness External Female Exam: normal external appearance and normal appearance of the urethra Speculum Exam - Vagina: normal appearance of the vagina Back/Spine/Pelvis Back: no CVA tenderness Skin General skin exam: no rashes or lesions noted Neuro General: patient oriented x3 Extrem General: Yes normal to inspection Psych Appearance: grossly normal and well kempt Mental Status: mental status grossly normal Speech and movement: Normal speech and movement present and Clear speech present Affect: normal affect Attitude: cooperative Thought process: Normal thought process present Thought content: Normal thought content present Insight: Fair insight present (Psych) Judgement: Fair judgement present (Psych) Office Procedures Post Void Residual Post Residual Void Post Void Residual (PVR): 26 [id number] Void Residual by ultrasound Results AMB Urinalysis, Automated UA Leukoctes 0 Taqueria/uL Last Edit by [employer] on 04/20/23 13:40 UA Nitrite Negative Last Edit by [employer] on 04/20/23 13:40 UA Urobilinogen 0.2 mg/dL Last Edit by [employer] on 04/20/23 13:40 UA Protein 0 mg/dL Last Edit by [employer] on 04/20/23 13:40 UA pH 6.0 Last Edit by [employer] on 04/20/23 13:40 UA Blood 25 Flavio/uL Last Edit by [employer] on 04/20/23 13:40 UA Specific Hathorne 1.015 Last Edit by [employer] on 04/20/23 13:40 UA Ketone Negative Last Edit by [employer] on 04/20/23 13:40 UA Bilirubin 0 mg/dL Last Edit by [employer] on 04/20/23 13:40 UA Glucose 0 mg/dL Last Edit by Dakota Treadwell on 04/20/23 13:40 Results Reviewed Results Reviewed: Laboratory Last Values Urine pH (Auto) 6.0 04/20/23 13:39 Specific Hathorne (Auto) 1.015 04/20/23 13:39 Urine Protein (Auto) 0 mg/dL 04/20/23 13:39 Glucose (UA)(Auto) 0 mg/dL 04/20/23 13:39 Urine Ketones (Auto) Negative 04/20/23 13:39 Urine Blood (Auto) 25 Flavio/uL 04/20/23 13:39 Urine Nitrite (Auto) Negative 04/20/23 13:39 Urine Bilirubin (Auto) 0 mg/dL 04/20/23 13:39 Urine Urobilinogen (Auto) 0.2 mg/dL 04/20/23 13:39 Leukocyte Esterase (Auto) 0 Taqueria/uL 04/20/23 13:39 Assessment & Plan Assessment & Plan (1) Microhematuria: Code(s): R31.29 - Other microscopic hematuria (2) Sensation of pressure in bladder area: Code(s): R39.89 - Other symptoms and signs involving the genitourinary system (3) Urinary frequency: Code(s): R35.0 - Frequency of micturition Plan In office urinalysis results reviewed with the patient today; as noted above. PVR 26 mL. Discussed pelvic floor exercises to assist with urinary symptoms Discussed at length potential causes for microscopic hematuria. Discussed possible near future in office cystoscopy if symptoms persist and/or worsen. Discussed, educated, and encouraged on the importance of drinking adequate amount of water daily. Discussed bladder triggers/irritants. Continue Cialis 5 mg daily as discussed and prescribed as patient reports significant improvement in lower urinary tract symptoms Discussed possible near future referral to medical assistant ob gyn for further assessment evaluation of vulvodynia if symptoms continue Continue Estrace cream as discussed and prescribed; discussed attempting to also apply vaginally to assist with vulvodynia. Follow-up in 3 months; or sooner with any issues, concerns, and or questions. Orders: Orders AMB Urinalysis Automated Today Z13.9 - Encounter for screening, unspecified AMB Post Void Residual by ultrasound Today R35.0 - Frequency of micturition Medications: Refilled estradiol 0.01%(0.1mg/gram) vaginally 3 times a week; pea sized amount to ur ethra 3 times a week 30 days 42.5 grams 3RF tadalafil (Cialis) [id number] [facility] [id number] Member [id number] 5 mg PO DAILY 90 days 90 tabs 3RF Patient Instructions: The patient had an opportunity to ask questions regarding the treatment plan. All questions were answered. Physical exam, labs, and imaging were discussed and reviewed in detail. As well as risks, benefits, and discussion of treatment choices. No major barriers to understanding were identified. The patient expressed understanding and agreement with the above treatment plan. The patient was made aware they should contact our office by phone for worsening of their current condition, the appearance of new symptoms, or with any qu estions or concerns. Compliance is encouraged with any medications and follow up testing that is ordered. It is a privilege to be allowed the opportunity to participate in? your urological care.? Again, if you have any questions or concerns If you have any questions or concerns please do not hesitate to contact me. The office is [phone]. This note is constructed using voice recognition software. While every effort has been made to ensure accuracy laborer brush clearing errors may have been included. Yours sincerely, JEFFERSON Stauffer Coding Level of Care Code Est Pt Level 3 (53702) Diagnoses Microhematuria R31.29 Sensation of pressure in bladder area R39.89 Urinary frequency R35.0 CPT Codes Post Residual Void - PVR CPT Code: 72686-Jybb Void Residual by ultrasound ([id number])
== END 2023-04-20 14:01 | disposition home or self-care (01) ==
PROVIDERS: PCP Family Medicine; Visit Provider Nurse Practitioner Family
DX: R31.29 Other microscopic hematuria (principal); R39.89 Other symptoms and signs involving the genitourinary system; R35.0 Frequency of micturition
CPT/HCPCS: 99213

== ENCOUNTER → 2023-04-20 12:25 | Outpatient (BNVA) | payer MEDICARE, SELFPAY | PROVIDERS: PCP Family Medicine; Visit Provider Nurse Practitioner Family | DX: R31.29 Other microscopic hematuria (principal); R39.89 Other symptoms and signs involving the genitourinary system; R35.0 Frequency of micturition | CPT/HCPCS: 51798; 81003; 99212 ==

== ENCOUNTER 2023-06-03 08:47 | Outpatient (REF) | payer MEDICARE, SELFPAY ==
[2023-06-03 11:14] LABS: B Type Natriuretic Peptide 62 pg/mL (<100)
[2023-06-04 21:23] LABS: Immunoglobulin E 9 kU/L (<OR=114)
[2023-06-07 16:48] LABS: Vitamin D 25-OH, D2 <4 ng/mL; Vitamin D 25-OH, D3 27 ng/mL; Vitamin D 25-OH, Total 27 ng/mL (30-100)
== END 2023-06-03 08:48 | disposition home or self-care (01) ==
LOC: HO.LAB 08:47
PROVIDERS: Nurse Practitioner Family; PCP Family Medicine; Visit Provider Student in an Organized Health Care Education/Training Program
DX: J44.89 Other specified chronic obstructive pulmonary disease (principal); R06.02 Shortness of breath; Z13.21 Encounter for screening for nutritional disorder
CPT/HCPCS: 36415; 82306; 82785; 83880

== ENCOUNTER 2023-06-08 11:00 | Outpatient (RCR) | payer MEDICARE, OTHER, SELFPAY ==
--- NOTE | 2023-06-08 12:17 | MHC.PT.EP ---
[facility] [place] Office [place] [facility] [place] Office [address] Bettie Verdugo [address] [phone] F: [phone] F: [phone] F: [phone] F: [phone] Physical Therapy Plan of Care Date of Evaluation: 06/08/23 Date of Surgery: Diagnosis: frequency of micrution Assessment: 78 y/o female referred to PT with frequency of micturition. Her c/c is urinary frequency 15x/day and 3x/night, burning urination, and pain with sexual activity (has not had sexual intercourse in 3 years d/t this pain). Of note, she recently started estradial vaginal cream. Educated pt on pelvic floor PT and treatment which pt provided consent for. Next visit, will assess pelvic floor. Currently she presents with poor core activation, poor hip strength, impaired postural awareness, decreased abdominal scar mobility. Distributed bladder diary and educated pt on bladder norms. Frequency and Duration: The patient will be seen 1x/every other week for 5 visits Short Term Goals: in one month Assess pelvic floor Complete bladder diary I with urge deferment Bibliographic Services Specialist Goals: In 2 months I with HEP and self management of sx Pt will decrease # of urinary voids/day to < 12/day Treatment Plan: Modalities to reduce pain, spasms and effusion. Manual therapy to restore motion and function. Therapeutic exercise to improve strength and flexibility. Neuromuscular re-education for posture and balance. Therapeutic activities to return to functional activities of daily living. Electronically signed by: Please sign and return to therapist. Thank you for your referral.
--- NOTE | 2023-08-25 12:03 | MHC.PT.DC ---
[facility] [place] Office [employer] [facility] [place] Office [address] Bettie Verdugo [address] [phone] F: [phone] F: [phone] F: [phone] F: [phone] Physical Therapy Discharge Report Diagnosis: frequency of micrution Date of Surgery: Date of Evaluation: 06/08/23 Date of Discharge: 08/25/23 Treatments to Date: 2 Cancellations to Date: 0 No Shows to Date: 1 Discharge Status: Independent with HEP Discharge Summary: Pt only attended two visits. At time of last visit, we reviewed drinking less water as she states she did the bladder diary and she drinks 94oz water each day. Her animal herder wants her drinking between 50-68 oz water each day so we discussed gradually decreasing amount of fluid intake as she is overhydrating causing frequent urination. Provided a few exercises to strengthen gluts and stretch L hip with updated HEP. And reviewed urgency deferment. D/c at this time Electronically signed by: Lilian Ontiveros PT Please sign and return to therapist. Thank you for your referral.
== END 2023-08-25 12:03 | disposition home or self-care (01) ==
LOC: HO.PT 11:00
PROVIDERS: PCP Family Medicine; Visit Provider Nurse Practitioner Family
DX: R35.0 Frequency of micturition (principal); R39.89 Other symptoms and signs involving the genitourinary system; R31.29 Other microscopic hematuria
CPT/HCPCS: 97112; 97140; 97162

== ENCOUNTER 2023-06-15 14:53 | Outpatient (REF) | payer MEDICARE, OTHER, SELFPAY ==
--- NOTE | ~2023-06-15 | CT_ITS ---
EXAMINATION: CT CHEST WITHOUT CONTRAST CLINICAL INFORMATION: Dyspnea COMPARISON: None available. TECHNIQUE: Multidetector volumetric CT imaging of the chest was done. Axial MIP volume rendering provided. Sagittal and coronal reformatted images were obtained. This CT examination was performed using dose optimization techniques as appropriate, variously including the following: *Automated exposure control *Adjustment of mA and/or kV according to patient size (this includes techniques or standardized protocols for targeted exams where dose is matched to indication/reason for exam; i.e. extremities or head) *Use of iterative reconstruction technique DLP: 99 mGy-cm FINDINGS: ACCOUNTS PAYABLE LEAD: Unremarkable LUNGS: The lungs are clear with no evidence of inflammation or nodules. Central airways are patent. There is calcified granuloma in the right upper lobe, seen on image 24 series 7. MEDIASTINUM: The mediastinum is normal. CORONARY ARTERY CALCIFICATION: None visualized on this study. PLEURA: There is no pleural effusion. No pleural mass or thickening. AXILLA: No lymphadenopathy. UPPER ABDOMEN: Gallbladder is surgically absent. OSSEOUS STRUCTURES: Unremarkable. CT/CT chest wo IV con IMPRESSION: Unremarkable examination. Fleischner guidelines were followed.
== END 2023-06-15 14:54 | disposition home or self-care (01) ==
LOC: HO.CT 14:53
PROVIDERS: PCP Family Medicine; Visit Provider Nurse Practitioner Family
DX: R06.00 Dyspnea, unspecified (principal)
CPT/HCPCS: 71250

== ENCOUNTER 2023-06-22 10:00 | Outpatient (RCR) | payer MEDICARE, OTHER, SELFPAY | END 2023-10-05 15:17 | disposition home or self-care (01) | LOC: HO.PT 10:00 | PROVIDERS: PCP Family Medicine; Visit Provider Nurse Practitioner Family | DX: Z13.89 Encounter for screening for other disorder (principal) ==

== ENCOUNTER 2023-06-23 15:00 | Outpatient (AMB) | payer MEDICARE, SELFPAY ==
[2023-06-23 15:11] VITALS: BP 102/60; PULSE 76; O2SAT 97; BMI 23.6
--- NOTE | 2023-06-23 15:11 | A.OFFVIS_ITS ---
Intake Vital Signs 06/23/23 15:11 Height 5 ft Weight 121 lb BMI 23.6 BP 102/60 Blood Pressure Location Lt brachial Position Sitting Pulse 76 Pulse Source Pulse Oximeter Pulse Oximetry (%) 97 Oxygen Delivery Method Room Air Intake Visit Reasons: Asthma/CT Chest Follow Up Retort Firer Required: Yes Digital Publishing Specialist: Digital Publishing Specialist offered & declined Accompanied by: Self / Same As Patient Allergies No Known Allergies Allergy (Verified 06/23/23 15:17) Medication List - Last Reconciled 06/23/23 by Linette Mike LPN Advair HFA 230-21 mcg/actuation (fluticasone propion-salmeterol) 2 puffs inhalation Q12H NS albuterol sulfate 90 mcg/actuation (Proventil HFA) 2 puffs inhalation Q4H PRN aspirin 81 mg PO QAM qfrhhobckn-sxxncsbtptfes-tlhl 50-325-40 mg 1 tab PO Q6H PRN calcium carbonate 600 mg PO BID celecoxib 100 mg PO BID cholecalciferol (vitamin D3) 50 mcg PO DAILY 3 months cyclobenzaprine 10 mg PO BEDTIME diclofenac sodium 1% topical estradiol 0.01%(0.1mg/gram) vaginally 3 times a week; pea sized amount to urethra 3 times a week 30 days famotidine 40 mg PO BEDTIME fluticasone propionate 110 mcg/actuation (Flovent HFA) 1 puff inhalation BID lidocaine 5% 1 patch topical DAILY losartan 25 mg PO QAM metformin 500 mg PO TID montelukast 10 mg PO QAM multivitamin 1 tab PO QAM omeprazole 20 mg PO DAILY 4 weeks quetiapine 25 mg PO BEDTIME rosuvastatin 20 mg PO QAM sucralfate (Carafate) 10 mL PO Q6H tadalafil (Cialis) 5 mg PO DAILY 90 days venlafaxine ER 37.5 mg PO DAILY HPI Asthma/CT Chest Follow Up HPI Details Ed is a very pleasant 78 year old, never smoker, with underlying childhood asthma, GERD, osteoporosis and diastolic dysfunction. She was suboptimally controlled on Flovent and switched to Advair. Unfortunately she continues with intermittent chest tightness, dry cough, wheezing and dyspnea. She also reports ongoing symptoms of productive cough with yellow sputum and sinus pressure for the past 3-4 weeks. She was evaluated at urgent care who reportedly tested for RSV, COVID and mycoplasma, which were negative. She denies fevers, chills or sick contacts. Today she presents to review chest CT results. [facility] Medical History Atherosclerotic cardiovascular disease PVD (peripheral vascular disease) Breast nodule Urinary incontinence Osteoporosis Dementia in Alzheimer's disease Chronic diastolic (congestive) heart failure Hypertension Vitamin D deficiency Carpal tunnel syndrome Cervical disc disorder CKD (chronic kidney disease), stage II TONY (generalized anxiety disorder) Vertigo CAD (coronary artery disease) GERD (gastroesophageal reflux disease) Migraine Diabetes mellitus Asthma Surgical History Hx of cardiac catheterization History of hernia repair History of left inguinal hernia repair History of right inguinal hernia repair History of cholecystectomy Hx of colonoscopy History of esophagogastroduodenoscopy (EGD) Family History Mother Heart problem Arthritis Social History (Updated 06/23/23 @ 15:17 by Linette Mike LPN) Alcohol intake: never Patient Tobacco Use Status: Never used Tobacco Review of Systems Const Denies chills, Denies excessive sweating, Denies fever(s) and Denies night sweats Eyes Denies dry eyes, Denies irritation and Denies itchy eyes ENT Reports Normal hearing present, Denies nasal congestion, Denies nasal discharge, Denies post nasal drip and Denies sore throat Card Denies chest pain, Denies chest pain at rest, Denies chest pain with activity, Denies claudication, Denies leg edema, Denies orthopnea and Denies paroxysmal nocturnal dyspnea Resp Denies pain on inspiration, Denies pain with cough and Denies stridor Musc Denies myalgias Neuro Reports Normal hearing present Endo Denies excessive sweating Dav/Lymph Denies lymphadenopathy Aller/Immun Denies itchy eyes and Denies seasonal rhinorrhea Physical Exam Vital Signs: Last Vital Signs Pulse 76 06/23/23 15:11 BP 102/60 06/23/23 15:11 Pulse Ox 97 06/23/23 15:11 Oxygen Delivery Method Room Air 06/23/23 15:11 BMI result Body Mass Index 23.6 Const General: cooperative, healthy appearing, no acute distress and alert Orientation/consciousness: patient oriented x3 Limitations: no limitations HEENT Head: Yes normal to inspection, Yes normocephalic and Yes atraumatic Ears: hearing grossly normal bilaterally and external ears normal Eyes General: appearance normal, both eyes and all related structures Eyelids: Yes eyelids normal Sclerae: sclerae normal EOM: EOMs intact bilaterally Neck Neck: Yes normal visual inspection and Yes no lymphadenopathy Lymphatic: no lymphadenopathy noted Chest Chest palpation & inspection: normal inspection of the chest Resp Other: diminished lung sounds bilaterally, improved after nebulizer Effort & Inspection: normal respiratory effort, able to speak in complete sentences, no audible wheezes, no stridor, not tachypneic, no tripod positioning and no use of accessory muscles Cardio Jugular venous distension: no JVD Rate: regular rate Rhythm: regular rhythm Skin Other: warm, dry General skin exam: no rashes or lesions noted Neuro General: patient oriented x3 Cranial nerves: Yes Normal hearing present Cognition (Neuro): normal cognition Extrem General: Yes normal to inspection, Yes capillary refill normal, Yes no clubbing, cyanosis or edema and Yes no pedal edema Psych Appearance: grossly normal and well kempt Speech and movement: Normal speech and movement present and Clear speech present Affect: normal affect Attitude: cooperative Thought process: Normal thought process present Thought content: Normal thought content present Insight: Good insight present (Psych) Judgement: Good judgement present (Psych) Office Procedures Nebulizer Treatment Nebulizer Treatment 95179-Bprqjpeve/MDI RX initial, or Nebulizer Subsequent Treatment Office Meds levalbuterol HCl 1.25 mg/3 mL solution for nebulization Performing Provider: Marcia Gracia NP Performing Location: [facility] Administered by: Linette Mike LPN on 06/23/23 15:47 Dose Route Admin Location Dispensed Lot Number Expiration Date [facility] [place] Office [employer] 1.25 mg inhalation 3 mL [id number] 07/15/24 92775-248-41 [facility] Results Reviewed Results Reviewed: [address] [place] [id number] Scan Report Signed Patient: Ed Holguin MR#: [id number] : 1945 Acct:[id number] Age/Sex: 78 / F ADM Date: 06/15/23 Loc: HO.CT Attending Dr: Marcia Gracia REGISTERED PHARMACY TECHNICIAN Ordering Physician: Marcia Gracia NP Date of Service: 06/15/23 Procedure(s): CT chest wo IV con Accession Number(s): [id number] cc: Marcia Gracia NP; Edwige Headley MD~ EXAMINATION: CT CHEST WITHOUT CONTRAST CLINICAL INFORMATION: Dyspnea COMPARISON: None available. TECHNIQUE: Multidetector volumetric CT imaging of the chest was done. Axial MIP volume rendering provided. Sagittal and coronal reformatted images were obtained. This CT examination was performed using dose optimization techniques as appropriate, variously including the following: *Automated exposure control *Adjustment of mA and/or kV according to patient size (this includes techniques or standardized protocols for targeted exams where dose is matched to indication/reason for exam; i.e. extremities or head) *Use of iterative reconstruction technique DLP: 99 mGy-cm FINDINGS: MACHINIST AUTOMOTIVE: Unremarkable LUNGS: The lungs are clear with no evidence of inflammation or nodules. Central airways are patent. There is calcified granuloma in the right upper lobe, seen on image 24 series 7. MEDIASTINUM: The mediastinum is normal. CORONARY ARTERY CALCIFICATION: None visualized on this study. PLEURA: There is no pleural effusion. No pleural mass or thickening. AXILLA: No lymphadenopathy. UPPER ABDOMEN: Gallbladder is surgically absent. OSSEOUS STRUCTURES: Unremarkable. CT/CT chest wo IV con IMPRESSION: Unremarkable examination. Fleischner guidelines were followed. Dictated By: Jose D Pierre MD Signed By: <Electronically signed by Jose D Pierre MD in OV> 06/16/23 1640 Assessment & Plan Assessment & Plan (1) Asthma-COPD overlap syndrome: Code(s): J44.89 - Other specified chronic obstructive pulmonary disease Plan Will send in doxycycline and benzonatate for bronchitic symptoms. Neb treatment also given in office, with symptomatic improvement. She is aware if symptoms do not improve to call office. Will consider CXR at that time. At baseline, patient still suboptimally controlled on ICS/LABA, will add LAMA. Patient requesting nebulizer for home use, will send in with levalbuterol, as she reports s ignificant tremors with albuterol. Reviewed chest CT results which were unremarkable. Will follow up in three months or sooner if needed. All questions were answered and patient is in agreement of plan. Orders: Orders AMB Nebulizer Treatment Today J44.89 - Other specified chronic obstructive pulmonary disease Medications: New Incruse Ellipta 62.5 mcg/actuation (umeclidinium) 1 inh inhalation DAILY 30 ea 3RF NS doxycycline hyclate 100 mg PO BID 14 caps 0RF benzonatate 100 mg PO BID PRN 30 caps 0RF cough levalbuterol HCl 1.25 mg (3 mL) inhalation Q4-6H PRN 90 mL 3RF shortness of breath or wheezing Refilled Advair HFA 230-21 mcg/actuation (fluticasone propion-salmeterol) 2 puffs inhalation Q12H 1 ea 3RF NS Coding Level of Care Code Est Pt Level 4 (40620) Diagnoses Asthma-COPD overlap syndrome J44.89 CPT Codes Nebulizer Treatment - Nebulizer Treatment, initial or subsequent: 38345- Nebulizer/MDI RX initial, or Nebulizer Subsequent Treatment ([id number])
== END 2023-06-23 15:59 | disposition home or self-care (01) ==
PROVIDERS: PCP Family Medicine; Visit Provider Nurse Practitioner Family
DX: J44.89 Other specified chronic obstructive pulmonary disease (principal)
CPT/HCPCS: 99214

== ENCOUNTER → 2023-06-23 15:00 | Outpatient (BNVA) | payer MEDICARE, SELFPAY | PROVIDERS: PCP Family Medicine; Visit Provider Nurse Practitioner Family | DX: J44.89 Other specified chronic obstructive pulmonary disease (principal) | CPT/HCPCS: 94640; 99212 ==

== ENCOUNTER 2023-07-21 13:25 | Outpatient (AMB) | payer MEDICARE, SELFPAY ==
--- NOTE | 2023-07-21 13:40 | MHC.OFFVIS ---
Intake Intake Visit Reasons: 3m/PVR Intake Note: Patient is present for follow up micro hematuria,frequency, and urgency Urology Medications: estrace cream, tadalafil Blood Thinner: aspirin PVR: 0ml's Adobe Cq Developer Required: Yes Adobe Cq Developer Name: FRANKY SHERMANJAYANT Accompanied by: Self / Same As Patient Allergies No Known Allergies Allergy (Verified 07/21/23 14:46) Medication List - Last Reconciled 07/21/23 by RACHEL Stauffer- Advair HFA 230-21 mcg/actuation (fluticasone propion-salmeterol) 2 puffs inhalation Q12H NS albuterol sulfate 90 mcg/actuation (Proventil HFA) 2 puffs inhalation Q4H PRN amitriptyline 25 mg PO BEDTIME 30 days aspirin 81 mg PO QAM benzonatate 100 mg PO BID PRN zjrwwexfjp-skjxwccsafhmf-qksy 50-325-40 mg 1 tab PO Q6H PRN calcium carbonate 600 mg PO BID cholecalciferol (vitamin D3) 50 mcg PO DAILY 3 months cyclobenzaprine 10 mg PO BEDTIME diclofenac sodium 1% topical estradiol 0.01%(0.1mg/gram) vaginally 3 times a week; pea sized amount to urethra 3 times a week 30 days famotidine 40 mg PO BEDTIME Incruse Ellipta 62.5 mcg/actuation (umeclidinium) 1 inh inhalation DAILY NS levalbuterol HCl 1.25 mg (3 mL) inhalation Q4-6H PRN lidocaine 5% 1 patch topical DAILY losartan 25 mg PO QAM metformin 500 mg PO TID mirabegron ER (Myrbetriq) 25 mg PO DAILY 30 days montelukast 10 mg PO QAM multivitamin 1 tab PO QAM omeprazole 20 mg PO DAILY 4 weeks quetiapine 25 mg PO BEDTIME rosuvastatin 20 mg PO QAM sucralfate (Carafate) 10 mL PO Q6H venlafaxine ER 37.5 mg PO DAILY HPI HPI Comments History of Present Illness Details Ed is a very pleasant 78-year-old Swazi-speaking female patient of Dr. Headley. She presents to the office today for a follow up of her ongoing urological issues. She has a past medical history of asthma, DM, migraine headaches, GERD, CAD, vertigo, anxiety, chronic kidney disease stage 2, cervical disc disorder, carpal tunnel syndrome, vitamin-D deficiency, hypertension, chronic diastolic heart failure, dementia Alzheimer's, osteoporosis, left breast nodule, and PVD. Of note, patient was seen approximately 3 months ago at which time she was continuing her Cialis for bladder stability. In discussion with the patient today she reports feeling lower urinary pressure she had been experiencing has since subsided. When asked she does report compliance with Estrace cream as prescribed. She does however continue to report vaginal vulvodynia, urinary urgency, urinary frequency, and nocturia. In office urinalysis results reviewed with the patient today. PVR 0mls. She has previously trialed low-dose antibiotic therapy for question of interstitial cystitis however did not find any improvement in urinary urgency, urinary frequency, and nocturia. She otherwise denies visible hematuria, flank pain, foul-smelling urine, fever, and or chills. Discussed at length potential causes for microscopic hematuria. Discussed further microscopic hematuria workup with in office cystoscopy as patient with previous CT, ultrasound, and urine cytology with no abnormal findings regarding the bladder and or kidneys. When asked patient denies smoking history and or any known chemical exposure. She discusses having had a cystoscopy in 2011 and again in 2020 both were normal in [place]. Discussed at length importance of drinking adequate amount of water daily. Discussed bladder triggers/irritants. Discussed at length importance of managing diabetes for improvement in urinary symptoms as well as overall health and well-being. She reports to be following up with pelvic floor therapy however has not yet found this helpful however will continue as she has only attended 3-4 sessions. She otherwise offers no other issues or concerns at this time. [facility] Medical History Atherosclerotic cardiovascular disease PVD (peripheral vascular disease) Breast nodule Urinary incontinence Osteoporosis Dementia in Alzheimer's disease Chronic diastolic (congestive) heart failure Hypertension Vitamin D deficiency Carpal tunnel syndrome Cervical disc disorder CKD (chronic kidney disease), stage II TONY (generalized anxiety disorder) Vertigo CAD (coronary artery disease) GERD (gastroesophageal reflux disease) Migraine Diabetes mellitus Asthma Surgical History Hx of cardiac catheterization History of hernia repair History of left inguinal hernia repair History of right inguinal hernia repair History of cholecystectomy Hx of colonoscopy History of esophagogastroduodenoscopy (EGD) Family History Mother Heart problem Arthritis Social History Alcohol intake: never Patient Tobacco Use Status: Never used Tobacco Review of Systems Const Reports as per [facility] Eyes Reports no additional complaints ENT Reports no additional complaints Card Reports as per [facility] Resp Reports as per [facility] GI Reports as per [facility] Reports as per [facility] Musc Reports as per [facility] Neuro Reports as per [facility] Psych Reports as per [facility] Endo Reports as per HPI Physical Exam Const General: cooperative, healthy appearing, comfortable, no acute distress, well developed, alert and awake Orientation/consciousness: patient oriented x3 Limitations: no limitations HEENT Head: Yes normal to inspection, Yes normocephalic and Yes atraumatic Ears: hearing grossly normal bilaterally Eyes General: appearance normal, both eyes and all related structures Neck Neck: Yes normal visual inspection and Yes trachea midline Chest Chest palpation & inspection: normal inspection of the chest Resp Effort & Inspection: normal respiratory effort and able to speak in complete sentences Cardio Rate: regular rate GI Inspection: Yes normal to inspection General: Yes no CVA tenderness External Female Exam: normal external appearance and normal appearance of the urethra Speculum Exam - Vagina: normal appearance of the vagina Back/Spine/Pelvis Back: no CVA tenderness Skin General skin exam: no rashes or lesions noted Neuro General: patient oriented x3 Extrem General: Yes normal to inspection Psych Appearance: grossly normal and well kempt Mental Status: mental status grossly normal Speech and movement: Normal speech and movement present and Clear speech present Affect: normal affect Attitude: cooperative Thought process: Normal thought process present Thought content: Normal thought content present Insight: Fair insight present (Psych) Judgement: Fair judgement present (Psych) Office Procedures Post Void Residual Post Residual Void Post Void Residual (PVR): 0 [id number]-[id number] Void Residual by ultrasound Results AMB Urinalysis, Automated UA Leukoctes 0 Taqueria/uL Last Edit by Dakota Treadwell on 07/21/23 14:04 UA Nitrite Negative Last Edit by Dakota Treadwell on 07/21/23 14:04 UA Urobilinogen 0.2 mg/dL Last Edit by Dakota Treadwell on 07/21/23 14:04 UA Protein 0 mg/dL Last Edit by Dakota Robertifeoma on 07/21/23 14:04 UA pH 5.5 Last Edit by Dakota Yesicaifeoma on 07/21/23 14:04 UA Blood 80 Flavio/uL Last Edit by Dakota Yesicaifeoma on 07/21/23 14:04 UA Specific [place] 1.015 Last Edit by Dakota Yesicaifeoma on 07/21/23 14:04 UA Ketone Negative Last Edit by Dakota Yesicaifeoma on 07/21/23 14:04 UA Bilirubin 0 mg/dL Last Edit by Dakota Yesicaifeoma on 07/21/23 14:04 UA Glucose 0 mg/dL Last Edit by Dakota Yesicaifeoma on 07/21/23 14:04 Results Reviewed Results Reviewed: Laboratory Last Values Urine pH (Auto) 5.5 07/21/23 13:43 Specific [place] (Auto) 1.015 07/21/23 13:43 Urine Protein (Auto) 0 mg/dL 07/21/23 13:43 Glucose (UA)(Auto) 0 mg/dL 07/21/23 13:43 Urine Ketones (Auto) Negative 07/21/23 13:43 Urine Blood (Auto) 80 Flavio/uL 07/21/23 13:43 Urine Nitrite (Auto) Negative 07/21/23 13:43 Urine Bilirubin (Auto) 0 mg/dL 07/21/23 13:43 Urine Urobilinogen (Auto) 0.2 mg/dL 07/21/23 13:43 Leukocyte Esterase (Auto) 0 Taqueria/uL 07/21/23 13:43 Assessment & Plan Assessment & Plan (1) Microhematuria: Code(s): R31.29 - Other microscopic hematuria (2) Sensation of pressure in bladder area: Code(s): R39.89 - Other symptoms and signs involving the genitourinary system (3) Urinary frequency: Code(s): R35.0 - Frequency of micturition Plan In office urinalysis results reviewed with the patient today; as noted above. PVR 0 mL. Discussed at length potential causes for microscopic hematuria. Discussed possible near future in office cystoscopy if symptoms persist and/or worsen. Discussed, educated, and encouraged on the importance of drinking adequate amount of water daily. Discussed bladder triggers/irritants. Stop Cialis Start Myrbetriq 25 mg daily as discussed and prescribed. Start amitriptyline 25 mg at bedtime. Continue Estrace cream as discussed and prescribed. Discussed possible near future referral to tile and marble setter for further assessment evaluation of vulvodynia if symptoms continue Continue Estrace cream as discussed and prescribed; discussed attempting to also apply vaginally to assist with vulvodynia. Follow-up in 3 months; or sooner with any issues, concerns, and or questions. Orders: Orders AMB Urinalysis Automated Today Z13.9 - Encounter for screening, unspecified AMB Post Void Residual by ultrasound Today R35.0 - Frequency of micturition Urine Cytology Today R31.29 - Other microscopic hematuria Medications: New mirabegron ER (Myrbetriq) 25 mg PO DAILY 30 days 30 tabs 2RF N30.10 - Interstitial cystitis (chronic) without hematuria, N32.81 - Overactive bladder, R35.1 - Nocturia, R39.15 - Urgency of urination amitriptyline 25 mg PO BEDTIME 30 days 30 tabs 2RF N30.10 - Interstitial cystitis (chronic) without hematuria Discontinued tadalafil (Cialis) [id number] [facility] [id number] Member [id number] Discontinued Reason: Doctor's Order 5 mg PO DAILY 90 days 90 tabs 3RF Patient Instructions: The patient had an opportunity to ask questions regarding the treatment plan. All questions were answered. Physical exam, labs, and imaging were discussed and reviewed in detail. As well as risks, benefits, and discussion of treatment choices. No major barriers to understanding were identified. The patient expressed understanding and agreement with the above treatment plan. The patient was made aware they should contact our office by phone for worsening of their current condition, the appearance of new symptoms, or with any questions or concerns. Compliance is encouraged with any medications and follow up testing that is ordered. It is a privilege to be allowed the opportunity to participate in? your urological care.? Again, if you have any questions or concerns If you have any questions or concerns please do not hesitate to contact me. The office is [phone]. This note is constructed using voice recognition software. While every effort has been made to ensure accuracy hook up errors may have been included. Yours sincerely, JEFFERSON Stauffer Coding Level of Care Code Est Pt Level 4 (91934) Diagnoses Microhematuria R31.29 Sensation of pressure in bladder area R39.89 Urinary frequency R35.0 CPT Codes Post Residual Void - PVR CPT Code: 68760-Rhkt Void Residual by ultrasound ([id number])
== END 2023-07-21 14:40 | disposition home or self-care (01) ==
PROVIDERS: PCP Family Medicine; Visit Provider Nurse Practitioner Family
DX: R31.29 Other microscopic hematuria (principal); R39.89 Other symptoms and signs involving the genitourinary system; R35.0 Frequency of micturition
CPT/HCPCS: 99214

== ENCOUNTER 2023-07-21 13:25 | Outpatient (REF) | payer MEDICARE, SELFPAY ==
[2023-07-21 16:47] LABS: Urine Cytology See Pathology rpt
== END 2023-07-21 13:26 | disposition home or self-care (01) ==
LOC: HO.LNP 13:25
PROVIDERS: PCP Family Medicine; Visit Provider Nurse Practitioner Family
DX: N30.11 Interstitial cystitis (chronic) with hematuria (principal); R31.29 Other microscopic hematuria; R39.15 Urgency of urination; I13.0 Hypertensive heart and chronic kidney disease with heart failure and stage 1 through stage 4 chronic kidney disease, or unspecified chronic kidney disease; I50.32 Chronic diastolic (congestive) heart failure; N18.2 Chronic kidney disease, stage 2 (mild); R39.89 Other symptoms and signs involving the genitourinary system; R35.1 Nocturia; N32.81 Overactive bladder; Z79.899 Other long term (current) drug therapy
CPT/HCPCS: 51798; 81003; 88112; 99212

== ENCOUNTER → 2023-07-29 09:54 | Outpatient (BNVA) | payer MEDICARE, OTHER, SELFPAY | PROVIDERS: PCP Family Medicine; Visit Provider Nurse Practitioner Family | DX: I25.10 Atherosclerotic heart disease of native coronary artery without angina pectoris (principal); R06.02 Shortness of breath; I11.0 Hypertensive heart disease with heart failure; I50.32 Chronic diastolic (congestive) heart failure | CPT/HCPCS: 99212 ==

== ENCOUNTER 2023-07-29 09:55 | Outpatient (AMB) | payer MEDICARE, SELFPAY ==
[2023-07-29 10:09] VITALS: BP 114/72; PULSE 73; BMI 24.0
--- NOTE | 2023-07-29 10:09 | MHC.OFFVIS ---
Intake Vital Signs 07/29/23 10:09 Height 5 ft Weight 123 lb 0.287 oz BMI 24.0 BP 114/72 Blood Pressure Location Lt brachial Position Sitting Pulse 73 Pulse Source Pulse Oximeter Intake Visit Reasons: 6 month follow up Inspector Shells Required: Yes Inspector Shells Language: Engine Repair Supervisor Name: alexander keyes [id number] Allergies No Known Allergies Allergy (Verified 07/29/23 10:12) Medication List - Last Reconciled 07/29/23 by SOBIA Salazar Advair HFA 230-21 mcg/actuation (fluticasone propion-salmeterol) 2 puffs inhalation Q12H NS albuterol sulfate 90 mcg/actuation (Proventil HFA) 2 puffs inhalation Q4H PRN amitriptyline 25 mg PO BEDTIME 30 days aspirin 81 mg PO QAM benzonatate 100 mg PO BID PRN ecqtwdfrjz-ognmvyztlfvss-hbsl 50-325-40 mg 1 tab PO Q6H PRN calcium carbonate 600 mg PO BID cholecalciferol (vitamin D3) 50 mcg PO DAILY 3 months cyclobenzaprine 10 mg PO BEDTIME diclofenac sodium 1% topical estradiol 0.01%(0.1mg/gram) vaginally 3 times a week; pea sized amount to urethra 3 times a week 30 days famotidine 40 mg PO BEDTIME gabapentin 300 mg PO TID Incruse Ellipta 62.5 mcg/actuation (umeclidinium) 1 inh inhalation DAILY NS levalbuterol HCl 1.25 mg (3 mL) inhalation Q4-6H PRN losartan 25 mg PO QAM metformin 500 mg PO TID mirabegron ER (Myrbetriq) 25 mg PO DAILY 30 days montelukast 10 mg PO QAM multivitamin 1 tab PO QAM omeprazole 20 mg PO DAILY 4 weeks quetiapine 25 mg PO BEDTIME rosuvastatin 20 mg PO QAM sucralfate (Carafate) 10 mL PO Q6H venlafaxine ER 37.5 mg PO DAILY HPI 6 month follow up HPI Details Ed is a 78-year-old female with past medical history of hypertension, diabetes, hyperlipidemia, diastolic heart failure, nonobstructive CAD, chronic shortness of breath with newer finding of COPD who presents for follow-up. Today she states that her breathing is unchanged in spite of the treatments provided by pulmonology. She continues to feel like she has to take a deep breath frequently throughout the day. She tells me she is having trouble getting the air out as well. She has a continual tightness feeling in her chest which is not changing. She does only light physical activities and ambulates with a walker. No PND, orthopnea or edema. No presyncope, syncope, falls. Taking meds as directed. Certified shirring tender used. [facility] Medical History Atherosclerotic cardiovascular disease PVD (peripheral vascular disease) Breast nodule Urinary incontinence Osteoporosis Dementia in Alzheimer's disease Chronic diastolic (congestive) heart failure Hypertension Vitamin D deficiency Carpal tunnel syndrome Cervical disc disorder CKD (chronic kidney disease), stage II TONY (generalized anxiety disorder) Vertigo CAD (coronary artery disease) GERD (gastroesophageal reflux disease) Migraine Diabetes mellitus Asthma Surgical History Hx of cardiac catheterization History of hernia repair History of left inguinal hernia repair History of right inguinal hernia repair History of cholecystectomy Hx of colonoscopy History of esophagogastroduodenoscopy (EGD) Family History Mother Heart problem Arthritis Social History Alcohol intake: never Patient Tobacco Use Status: Never used Tobacco Review of Systems Const All systems reviewed & are unremarkable except as noted in HPI and below ENT Denies dizziness Card Details: has trouble getting the air out when she breaths, chest always feels tight. No chest pains Denies chest pain, Denies chest pain at rest, Denies chest pain with activity, Denies rapid heart rate, Denies pedal edema, Denies edema, Denies leg edema, Denies lightheadedness, Denies palpitations, Reports dyspnea, Reports dyspnea on exertion and Denies orthopnea Resp Denies cough, Reports dyspnea and Reports dyspnea on exertion GI Denies hematochezia and Denies change in stool character Musc Details: unsteadiness at times so uses walker Reports abnormal gait, Denies limited range of motion, Denies muscle cramps, Denies muscle weakness, Denies numbness, Denies radiating pain into limb, Denies stiffness and Denies tingling Neuro Reports abnormal gait, Denies dizziness, Denies numbness and Denies tingling Endo Denies palpitations Physical Exam Vital Signs: Last Vital Signs Pulse 73 07/29/23 10:09 BP 114/72 07/29/23 10:09 BMI result Body Mass Index 24.0 Const General: cooperative, healthy appearing, comfortable and no acute distress Orientation/consciousness: patient oriented x3 Neck Neck: Yes normal visual inspection and Yes no JVD Resp Effort & Inspection: normal respiratory effort Auscultation: clear to auscultation bilaterally, no crackles, no rales, no rhonchi and no wheezes Cardio Jugular venous distension: no JVD Rate: regular rate Rhythm: regular rhythm Heart sounds: S1 normal heart sound present, S2 normal heart sound present, no murmurs and no rubs Neuro General: patient oriented x3 Extrem General: Yes normal to inspection, No no pedal edema and No calf tenderness Psych Appearance: grossly normal Mental Status: mental status grossly normal Speech and movement: Normal speech and movement present Assessment & Plan Assessment & Plan (1) Atherosclerotic cardiovascular disease: Code(s): I25.10 - Atherosclerotic heart disease of eagle coronary artery without angina pectoris Plan: Patient previously followed with fire claims adjuster in [place]. Known to have nonobstructive coronary artery disease based on cardiac catheterization 2020. She started following with us for symptom of shortness of breath. EKG done on prior visit showing normal sinus rhythm with left axis deviation, rate 78. An echocardiogram was done on 11/12/2022 showing EF 65-70%, grade 1 diastolic dysfunction, no valve abnormalities. Holter monitor done 11/12/2022 showing sinus rhythm with average heart rate 72, rare PACs, her symptoms correlated with sinus rhythm. Following last visit she underwent a PFT which did show mild COPD. She now follows with pulmonology in is undergoing different treatments to improve her chronic feeling of shortness of breath. Today she reports her symptom of feeling like she has to take a deep breath in continues. She also still has tightness in her chest which she describes as constant. I do not have the actual cardiac catheterization report. Only notes that indicate no obstructive lesions in 2020. Her symptoms have been continual so not likely to have developed obstructive lesions since that time. At this time will have her continue to follow with pulmonology. Signs and symptoms of angina reviewed with her. Instructed to notify this office if her symptoms become increasing. Emergency care if ever needed for symptoms. Continue aspirin, rosuvastatin with ideal LDL goal less than 70, losartan. Cardiology follow-up in 6 months sooner if needed (2) Shortness of breath: Code(s): R06.02 - Shortness of breath Plan: Being followed by pulmonology for COPD (3) Hypertension: Code(s): I10 - Essential (primary) hypertension Qualifiers: Hypertension type: primary hypertension Qualified Code(s): I10 - Essential (primary) hypertension Plan: Well controlled at present time. No med changes made. (4) Chronic diastolic (congestive) heart failure: Code(s): I50.32 - Chronic diastolic (congestive) heart failure Plan: No clinical signs of heart failure on examination. She does have this sensation that she has to take extra deep breaths in. BNP 62 on 06/03/2023. Signs and symptoms of heart failure reviewed with her. Plan Time spent on chart review, documentation, interview and assessment Orders: Orders Comprehensive Saline. Panel Fast Today I25.10 - Atherosclerotic heart disease of eagle coronary artery without angina pectoris Lipid Panel Today I25.10 - Atherosclerotic heart disease of [place] coronary artery without angina pectoris Hemoglobin A1c Today I25.10 - Atherosclerotic heart disease of [place] coronary artery without angina pectoris Coding Level of Care Code Est Pt Level 4 (48611) Diagnoses Atherosclerotic cardiovascular disease I25.10 Shortness of breath R06.02 Primary hypertension I10 Hypertension type: primary hypertension Chronic diastolic (congestive) heart failure I50.32 Time Spent (min) 28
== END 2023-07-29 10:37 | disposition home or self-care (01) ==
PROVIDERS: PCP Family Medicine; Visit Provider Nurse Practitioner Family
DX: I25.10 Atherosclerotic heart disease of native coronary artery without angina pectoris (principal); R06.02 Shortness of breath; I10 Essential (primary) hypertension; I50.32 Chronic diastolic (congestive) heart failure
CPT/HCPCS: 99214

== ENCOUNTER 2023-08-16 13:58 | Outpatient (REF) | payer MEDICARE, OTHER, SELFPAY ==
--- NOTE | ~2023-08-16 | FL_ITS ---
EXAMINATION: Modified Barium Swallow CLINICAL INFORMATION: Dysphagia COMPARISON: None TECHNIQUE: Modified barium swallow was performed under lateral fluoroscopy with patient in standing position. Different consistency of barium was administered by the speech therapist. FINDINGS: No laryngeal penetration or aspiration was seen during this examination. FLUOROSCOPY TIME: 1 minute 8 seconds Number of Spot Images: 1 DOSE AREA PRODUCT: 504.9 uGy-m2 (microgray-meter squared) FL/FL barium swallow modified IMPRESSION: No laryngeal penetration or aspiration was seen during this examination. Refer to the speech therapy report for further clarification This procedure was performed by Yaron Macdonald PA-C, and supervised by Dr. Mason
--- NOTE | 2023-08-17 15:21 | MHC.SL.IMP ---
Date of Plan of Treatment: 08/16/23 Onset of Symptoms/Illness: 07/27/23 Date Treatment Started: 08/16/23 Admitting Diagnosis: Dysphagia Primary Speech & Language Diagnosis: R13.12 Oropharyngeal Phase Dysphagia Reason for Today's Visit: 35115 Modified Barium Swallow Study Pre-evaluation Dietary Consistencies: Regular Pre-evaluation Liquid Consistency: Thin Pre-evaluation Medication Administration: Whole with Liquid Medical History: Modified Barium Swallow Study Fluoroscopic Evaluation of Swallowing Function CPT Code 72376 Evaluation Year: 2023 Reason for Study: Pt reporting difficulty swallowing. Referring Physician: Edwige Headley MD Evaluating Clinician: Marsha Coronado MA, CCC-IRRIGATION EQUIPMENT MECHANIC Study Number: 1 Patient Name: Ed Hoffmann Status: Outpatient, Ambulatory Age: 78 Gender: Female Medical History Medical History Atherosclerotic cardiovascular disease PVD (peripheral vascular disease) Breast nodule Urinary incontinence Osteoporosis Dementia in Alzheimer's disease Chronic diastolic (congestive) heart failure Hypertension Vitamin D deficiency Carpal tunnel syndrome Cervical disc disorder CKD (chronic kidney disease), stage II TONY (generalized anxiety disorder) Vertigo CAD (coronary artery disease) GERD (gastroesophageal reflux disease) Migraine Diabetes mellitus Asthma Surgical History Hx of cardiac catheterization History of hernia repair History of left inguinal hernia repair History of right inguinal hernia repair History of cholecystectomy Hx of colonoscopy History of esophagogastroduodenoscopy (EGD) Current (pre-evaluation) Intake/Diet: Route: PO Diet Grade: Regular Liquid Consistencies: Thin Pre-Study Functional Oral Intake Scale (FOIS): 7- Total oral intake with no restrictions Pain: None reported at time of study SUBJECTIVE: Patient is a 78 year old female referred for a modified barium swallow study by Edwige Headley MD from the [facility]. Patient reports having difficulty swallowing pills, liquids, and solids, stating, ?I choke sometimes, but then I am able to swallow it.? Patient recalled having choked on a pill one morning and then spitting out reddish tinged secretions, which she believed was the color of the pill. She complained of then experiencing discomfort in her throat all day, especially when swallowing pills again later that night. Patient?s history includes diabetes, hypertension, hyperlipidemia, chronic SOB with COPD, dementia, GERD, cervical disc disorder, and asthma. Oral Motor Exam Facial Symmetry: Symmetrical Mouth Occlusion: Normal Oral-Facial Teeth Characteristics: Intact/Normal Oral-Facial Smile (Lips) Description: Normal Oral-Facial Puff Cheeks Description: Normal Tongue Size: Normal Tongue Excursion Description: Normal Tongue Range of Movement Description: Normal Tongue Speed of Movement Description: Normal Tongue Strength of Movement (against opposing pressure): Normal Tongue Movement Characteristics: Normal/Absent Food and Liquid Trials: Oral Impairment: Lip Closure: Did not test Oral Impairment: Tongue Control During Bolus Hold: Did not test Oral Impairment: Bolus Preparation/Mastication: 0=Timely and efficient chewing and mashing Oral Impairment: Bolus Transport/Lingual Motion: 1= Delayed initiation of tongue motion Oral Impairment: Oral Residue: 2=Residue collection on oral structures Oral Impairment:Initiation of Pharyngeal Swallow: 3=Bolus head in pyriforms Pharyngeal Impairment: Soft Palate Elevation: 0=No bolus between soft palate (SP)/pharyngeal wall (PW) Pharyngeal Impairment: Laryngeal Elevation: 1=Partial thyroid cartilage/arytenoids to epiglottic petiole movement Pharyngeal Impairment: Anterior Hyoid Excursion: 1=Partial anterior movement Pharyngeal Impairment: Epiglottic Movement: 1=Partial inversion Pharyngeal Impairment: Laryngeal Vestibular Closure:: 0=Complete: no air/contrast in laryngeal vestibule Pharyngeal Impairment: Pharyngeal Stripping Wave: 0=Present: complete Pharyngeal Impairment: Pharyngeal Contraction: Did not test Pharyngeal Impairment: Pharyngoesophageal Segment Openin=Complete distension and complete duration: no obstruction of flow Pharyngeal Impairment: Tongue Base (TB) Retraction: 0=No contrast between tongue base and posterior pharyngeal wall Pharyngeal Impairment: Pharyngeal Residue: 2=Collection of residue within or on pharyngeal structures Pharyngeal Impairment: Esophageal Clearance Upright Position: Did not test Impressions and Recommendations OBJECTIVE: Time-out: performed at 15:00 Evaluation Start: 14:30; Stop: 14:35 Patient Positioning: Standing Viewing Planes: LATERAL ONLY MBSImP ID: [id number] Results: Lip closure for intraoral bolus containment could not be assessed due to logistical reasons not related to physiologic impairment. Tongue control during bolus hold could not be assessed due to logistical reasons not related to physiologic impairment. Bolus preparation and mastication resulted in timely and efficient chewing and mashing. Bolus transport/lingual motion demonstrated delayed initiation of tongue motion. Oral residue was a collection on oral structures. Initiation of the pharyngeal swallow occurred when the bolus head was in the pyriform sinuses. Soft palate elevation resulted in no bolus between the soft palate and the pharyngeal wall. Laryngeal elevation was decreased, with partial superior movement of the thyroid cartilage/partial approximation of the arytenoids to the epiglottic petiole. Anterior hyoid excursion demonstrated partial anterior movement. Epiglottic movement resulted in partial inversion. Laryngeal vestibular closure was complete, as indicated by no air or contrast within the laryngeal vestibule at the height of the swallow. Pharyngeal stripping wave was present and complete. Pharyngeal contraction could not be determined due to logistical reasons not related to physiologic impairment. Pharyngoesophageal segment opening was completely distended for complete duration with no obstruction of bolus flow. Tongue base retraction allowed no contrast between the retracted tongue base and the posterior pharyngeal wall. Pharyngeal residue was a collection of residue within or on pharyngeal structures. Esophageal clearance in the upright position could not be assessed due to logistical reasons not related to physiologic impairment. Oral Impairment Score: 6 (absence of score, component 1component 2) Pharyngeal Impairment Score: 5 (absence of score, component 13) Esophageal Impairment Score: --- (absence of score, component 17) Laryngeal Penetration and Aspiration: Neither penetration nor aspiration was observed in today's study with Cookgiuliana, Thin. ASSESSMENT: This exam was performed by the speech pathologist and the radiologist. Pt was standing for lateral view and trialed thin, pureed, and regular solid consistencies. Lingual AP transport was delayed in initiation with brisk movement. Mastication was timely and efficient. Pharyngeal swallow trigger was delayed, initiated at the level of the pyriforms. Post-swallow, there was mild residue coating the tongue, which cleared with subsequent swallows. Noted partial epiglottic inversion. Laryngeal vestibular closure was complete though, with no evidence of aspiration or penetration during this exam. There was mild pharyngeal retention with puree and regular texture solid collecting in the valleculae, which cleared with sips of liquid. Patient swallowed a whole barium pill tablet, which passed through the oral and pharyngeal cavities without hang up. Liquid Intake Recommendation: Thin Liquid Intake Strategies: Small Sips Dietary Recommendations: Regular Medication Administration: Whole with Puree Please contact the pharmacy regarding appropriate crushable or liquid drug formulations that are available whenever modified delivery is recommended. Compensatory Strategies Recommended: Sitting Upright (90 deg), Double Swallow, Small Bites and Sips, Alternate Liquids/Solids, Rate of Ingestion Change Recommendation for Speech Therapy: NA:Typical Evaluation Text Comment: Intake Recommendations: Route: PO Diet Grade: Regular Liquid Consistencies: Thin Post-Study Functional Oral Intake Scale (FOIS): 7- Total oral intake with no restrictions No evidence of aspiration or penetration with intake of liquids and solids. There was mild residue on the tongue and in the valleculae, which cleared with additional swallows and/or liquid wash. The following strategies are recommended to promote clearance: -Take one bite at a time and chew well -Follow each bite with a dry swallow -Alternate each bite with sips of liquid -Take small, individual sips of liquid -Maintain 90 degree position during PO intake and for at least 30 minutes afterwards Recommendations were discussed with the patient with the assistance of a ophthalmic medical technologist. Patient verbalized understanding. Therapy Recommendations: Further speech therapy intervention is not warranted at this time. Recommend patient continue monitoring her dysphagia. If she experiences any changes or worsening of symptoms, a re-assessment may be warranted. Clinician - Supplemental, Miscellaneous Communication: It is important to note MBSS objective studies are snapshots in time and Patient function might vary with factors such as time of day or concomitant medical conditions. For this reason, the final treatment plan for this patient should rest with their medical care team. Additional recommendations should be considered with the totality of the Patient in mind. Thank for the opportunity to participate in the care of this patient. If you have any questions about the content of this report, please contact the [facility] at [facility]. Education: Education regarding findings from today's study and plans for therapy were provided to Patient only through Verbal Instruction. Understanding was expressed by the Patient only. Complaint Inspector Clinician/Clinical Fellow: No Supervisory Statement: N/A Speech Language Pathologist: Marsha Coronado M.A., CCC-IRRIGATION EQUIPMENT MECHANIC
== END 2023-08-16 13:59 | disposition home or self-care (01) ==
LOC: HO.XRAY 13:58
PROVIDERS: PCP Family Medicine; Visit Provider Family Medicine
DX: R13.10 Dysphagia, unspecified (principal)
CPT/HCPCS: 74230; 92611

== ENCOUNTER → 2023-08-16 14:01 | Outpatient (BNV) | payer MEDICARE, SELFPAY | PROVIDERS: PCP Family Medicine; Visit Provider Physician Assistant Surgical | DX: R13.10 Dysphagia, unspecified (principal) | CPT/HCPCS: 74230 ==

== ENCOUNTER 2023-08-30 10:22 | Outpatient (REF) | payer MEDICARE, MEDICAID, SELFPAY ==
[2023-08-30 11:44] LABS: Estimated Average Glucose 117 mg/dL; Hemoglobin A1c % 5.7 % (<6.0)
[2023-08-30 12:17] LABS: Alanine Aminotransferase 18 U/L (0-31); Albumin Level 3.9 g/dL (3.5-5.0); Alkaline Phosphatase 63 U/L (39-117); Anion Gap 10 (12-20); Aspartate Amino Transferase 21 U/L (5-31); Bilirubin Total 0.5 mg/dL (0.0-1.0); Blood Urea Nitrogen 17 mg/dL (9-16); Calcium 10.2 mg/dL (8.4-10.2); Carbon Dioxide 31 mmol/L (22-29); Chloride 105 mmol/L (96-108); Cholesterol 116 mg/dL (<200); Estimated Glomerular Filt Rate > 60; Glucose Fasting 114 mg/dL (60-99); HDL Cholesterol 74 mg/dL (>40); LDL Cholesterol Calculated 35 mg/dL (<100); Potassium 4.6 mmol/L (3.3-5.1); Sodium 141 mmol/L (135-145); Triglycerides 39 mg/dL (<150)
== END 2023-08-30 10:23 | disposition home or self-care (01) ==
LOC: HO.LAB 10:22
PROVIDERS: PCP Family Medicine; Visit Provider Nurse Practitioner Family
DX: I25.10 Atherosclerotic heart disease of native coronary artery without angina pectoris (principal)
CPT/HCPCS: 36415; 80053; 80061; 83036

== ENCOUNTER 2023-09-29 13:37 | Outpatient (AMB) | payer MEDICARE, SELFPAY ==
--- NOTE | 2023-09-29 14:07 | MHC.OFFVIS ---
Vital Signs 09/29/23 14:42 Height 5 ft Weight 121 lb 4 oz BMI 23.7 BP 110/70 Blood Pressure Location Rt brachial Position Sitting Pulse 68 Pulse Source Pulse Oximeter Pulse Oximetry (%) 97 Oxygen Delivery Method Room Air Intake Visit Reasons: asthma: 3 month f/u Supervisor Adult Education Required: Yes Supervisor Adult Education Language: Thread Tool Grinder Set Up Operator Name: [id number] Josiah Allergies No Known Allergies Allergy (Verified 09/29/23 14:44) HPI HPI asthma: 3 month f/u: Details: Ed is a very pleasant 78 year old, never smoker, with underlying childhood asthma, asthma COPD overlap syndrome GERD, osteoporosis and diastolic dysfunction. She was suboptimally controlled on Flovent, switched to Advair and Incruse was added. Unfortunately she continues with intermittent chest tightness, wheezing and dyspnea. She also reports difficulty fully inspiring. Denies cough at this time. She has been using her albuterol infrequently. She denies any visits to Urgent Care or hospitalizations since the last visit. She is under the care of cardiology and had recent echo which revealed LVEF of 65-70% and mild grade 1 diastolic dysfunction, and prior right heart catheterization was reportedly unremarkable from 2020. Of note, she recently was sent for a modified barium swallow for dysphagia which was negative for any laryngeal penetration or aspiration. [facility] Medical History Atherosclerotic cardiovascular disease PVD (peripheral vascular disease) Breast nodule Urinary incontinence Osteoporosis Dementia in Alzheimer's disease Chronic diastolic (congestive) heart failure Hypertension Vitamin D deficiency Carpal tunnel syndrome Cervical disc disorder CKD (chronic kidney disease), stage II TONY (generalized anxiety disorder) Vertigo CAD (coronary artery disease) GERD (gastroesophageal reflux disease) Migraine Diabetes mellitus Asthma Surgical History Hx of cardiac catheterization History of hernia repair History of left inguinal hernia repair History of right inguinal hernia repair History of cholecystectomy Hx of colonoscopy History of esophagogastroduodenoscopy (EGD) Family History Mother Heart problem Arthritis Social History Alcohol intake: never Patient Tobacco Use Status: Never used Tobacco Review of Systems Const Denies chills, Denies excessive sweating, Denies fever(s) and Denies night sweats Eyes Denies dry eyes, Denies irritation and Denies itchy eyes ENT Reports Normal hearing present, Denies nasal congestion, Denies nasal discharge, Denies post nasal drip and Denies sore throat Card Denies chest pain, Denies chest pain at rest, Denies chest pain with activity, Denies claudication, Denies leg edema, Denies orthopnea and Denies paroxysmal nocturnal dyspnea Resp Denies pain on inspiration, Denies pain with cough and Denies stridor Musc Denies myalgias Neuro Reports Normal hearing present Endo Denies excessive sweating Dav/Lymph Denies lymphadenopathy Aller/Immun Denies itchy eyes and Denies seasonal rhinorrhea Physical Exam Vital Signs: Last Vital Signs Pulse 68 09/29/23 14:42 BP 110/70 09/29/23 14:42 Pulse Ox 97 09/29/23 14:42 Oxygen Delivery Method Room Air 09/29/23 14:42 BMI result Body Mass Index 23.7 Const General: cooperative, healthy appearing, no acute distress and alert Orientation/consciousness: patient oriented x3 Limitations: ambulation with walker HEENT Head: Yes normal to inspection, Yes normocephalic and Yes atraumatic Ears: hearing grossly normal bilaterally and external ears normal Eyes General: appearance normal, both eyes and all related structures Eyelids: Yes eyelids normal Sclerae: sclerae normal EOM: EOMs intact bilaterally Neck Neck: Yes normal visual inspection and Yes no lymphadenopathy Lymphatic: no lymphadenopathy noted Chest Chest palpation & inspection: normal inspection of the chest Resp Effort & Inspection: normal respiratory effort, able to speak in complete sentences, no audible wheezes, no stridor, not tachypneic, no tripod positioning and no use of accessory muscles Auscultation: diminished lung sounds Cardio Jugular venous distension: no JVD Rate: regular rate Rhythm: regular rhythm Skin Other: warm, dry General skin exam: no rashes or lesions noted Neuro General: patient oriented x3 Cranial nerves: Yes Normal hearing present Cognition (Neuro): normal cognition Extrem General: Yes normal to inspection, Yes capillary refill normal, Yes no clubbing, cyanosis or edema and Yes no pedal edema Psych Appearance: grossly normal and well kempt Speech and movement: Normal speech and movement present and Clear speech present Affect: normal affect Attitude: cooperative Thought process: Normal thought process present Thought content: Normal thought content present Insight: Good insight present (Psych) Judgement: Good judgement present (Psych) Assessment & Plan Assessment & Plan (1) Asthma-COPD overlap syndrome: Code(s): J44.89 - Other specified chronic obstructive pulmonary disease Category: Medical Plan Ed reports minimal improvement since adding Incruse to the regimen. Will switch Advair and Incruse to Trelegy. Encouraged patient to use albuterol more frequently when she experiences any chest tightness or wheezing. Will consider biologics if patient continues to report suboptimal control. All questions were answered and patient is in agreement of plan. Will follow-up in 6-8 weeks to assess response to Trelegy or sooner if needed. Medications: New epwpltlbwkt-dywuffnre-dslkovsw 200-62.5-25 mcg (Trelegy Ellipta) 1 inh inhalation DAILY 60 ea 6RF J44.89 - Other specified chronic obstructive pulmonary disease Coding Level of Care Code Est Pt Level 3 (95534) Diagnoses Asthma-COPD overlap syndrome J44.89
[2023-09-29 14:42] VITALS: BP 110/70; PULSE 68; O2SAT 97; BMI 23.7
== END 2023-09-29 14:53 | disposition home or self-care (01) ==
PROVIDERS: PCP Family Medicine; Visit Provider Nurse Practitioner Family
DX: J44.89 Other specified chronic obstructive pulmonary disease (principal)
CPT/HCPCS: 99213

== ENCOUNTER → 2023-09-29 13:37 | Outpatient (BNVA) | payer MEDICARE, SELFPAY | PROVIDERS: PCP Family Medicine; Visit Provider Nurse Practitioner Family | DX: J44.89 Other specified chronic obstructive pulmonary disease (principal) | CPT/HCPCS: 99212 ==

== ENCOUNTER 2023-10-20 12:01 | Outpatient (AMB) | payer MEDICARE, MEDICAID, SELFPAY ==
--- NOTE | 2023-10-20 12:17 | MHC.OFFVIS ---
Vital Signs 10/20/23 12:18 Height 5 ft Weight 121 lb BMI 23.6 Intake Visit Reasons: Preop RT trigger release 10/25/23 AR Intake Note: Ed 78 yr old female presents today for her pre op visit for her right index trigger release 10/25/23 AR. Allergies No Known Allergies Allergy (Verified 10/20/23 12:18) HPI HPI Preop RT trigger release 10/25/23 AR: Details: Ed is a 78 year old right hand dominant Croatian speaking Diabetic woman who returns to discuss her right index trigger finger She complains of painful locking of her right index finger. She has a hx of Fibromyalgia, Polyarthralgia, and DM. PFSH Medical History Atherosclerotic cardiovascular disease PVD (peripheral vascular disease) Breast nodule Urinary incontinence Osteoporosis Dementia in Alzheimer's disease Chronic diastolic (congestive) heart failure Hypertension Vitamin D deficiency Carpal tunnel syndrome Cervical disc disorder CKD (chronic kidney disease), stage II TONY (generalized anxiety disorder) Vertigo CAD (coronary artery disease) GERD (gastroesophageal reflux disease) Migraine Diabetes mellitus Asthma Surgical History Hx of cardiac catheterization History of hernia repair History of left inguinal hernia repair History of right inguinal hernia repair History of cholecystectomy Hx of colonoscopy History of esophagogastroduodenoscopy (EGD) Family History Mother Heart problem Arthritis Social History Alcohol intake: never Patient Tobacco Use Status: Never used Tobacco Physical Exam Vital Signs: BMI result Body Mass Index 23.6 Extrem Other: Evaluation of Right Upper Extremity: The patient is alert, oriented, and in no acute distress Neuro: Median, Ulnar, Radial nerves motor and sensory intact and sensation is normal to the tips of all digits Vascular: Cap refill brisk Visible and palpable locking and catching of the index finger. As a matter fact her index finger would get locked in clinic, and she felt she was unable to bring it back into extension. We had to bring it back into extension for her twice. Tender over the index finger A1 patricia. Assessment & Plan Assessment & Plan (1) Trigger finger, right index finger: Code(s): M65.321 - Trigger finger, right index finger Category: Medical (2) Diabetes mellitus: Code(s): E11.9 - Type 2 diabetes mellitus without complications Category: Medical (3) Fibromyalgia, primary: Code(s): M79.7 - Fibromyalgia Category: Medical Plan Assessment & Plan: 1. Right index finger trigger finger I educated her about this condition I discussed operative and non-operative treatment options The patient would like to proceed with surgery The risks and benefits of operative treatment were discussed with the patient and the patient wishes to proceed with surgery. These risks include, but are not limited to risk of damage to blood vessels, nerves, tendons, infection, recurrence, incomplete relief of preoperative symptoms, persistent pain, possible need for further surgery and the risks associated with regional blocks and anesthesia. The plan is to take the patient to the operating room sometime on 10/25/23 for the following procedures: 1. Right index trigger finger release, under local All of the preoperative paperwork including the consent was filled out today. All the patient's questions were answered. She denies blood thinners, asthma, lung, kidney issues She is a Diabetic, her most recent HgA1c was 5.7% on 08/30/23 She has a hx of CHF and denies any blood thinners. She has a Hx of Fibromyalgia & polyarthralgia Scribed for Oriana Beckford MD by Cole Coronel, medical education coordinator, on 10/20/23 at 12:45 PM, EST. Coding Level of Care Code Est Pt Level 4 (78989) Diagnoses Trigger finger, right index finger M65.321 Diabetes mellitus E11.9 Fibromyalgia, primary M79.7
[2023-10-20 12:18] VITALS: BMI 23.6
== END 2023-10-20 12:37 | disposition home or self-care (01) ==
PROVIDERS: PCP Family Medicine; Visit Provider Orthopaedic Surgery
DX: M65.321 Trigger finger, right index finger (principal); E11.9 Type 2 diabetes mellitus without complications; M79.7 Fibromyalgia
CPT/HCPCS: 99214

== ENCOUNTER → 2023-10-20 12:01 | Outpatient (BNVA) | payer MEDICARE, OTHER, SELFPAY | PROVIDERS: PCP Family Medicine; Visit Provider Orthopaedic Surgery | DX: M65.321 Trigger finger, right index finger (principal); M79.7 Fibromyalgia; E11.9 Type 2 diabetes mellitus without complications | CPT/HCPCS: 99212 ==

== ENCOUNTER 2023-10-25 10:32 | Day surgery (SDC) | payer MEDICARE, OTHER, SELFPAY ==
[2023-10-25 11:02] VITALS: BMI 23.4
--- NOTE | 2023-10-25 13:41 | MHC.SHP ---
Pre-Procedural Eval Section A - 24 Hr Update-Section A only Date of Service: 10/25/23 The patient is an INPATIENT: No Changes since office visit: No Cold of Flu in the past 2 weeks, No New Medical Problems, No Changes in Medication and No Patient answered all questions The patient has been examined within 24 hours of the surgical procedure. The History & Physical has been completed within 30 days and I have reviewed it.: Yes Section B - Complete if H&P > 30 days Chief Complaint: Trigger finger, right index finger Allergies: Allergies Allergy/AdvReac Type Severity Reaction Status Date / Time No Known Allergies Allergy Verified 10/25/23 11:54 Exam Exam Comment: Index finger trigger finger Plan Diagnosis/Plan: Unchanged I have reviewed the history and physical and performed a pertinent physical examination on my patient. No changes have occurred unless specified. Time Spent With Patient Time: Total time managing care of this patient today ____ minutes.
--- NOTE | 2023-10-25 13:42 | P.OP_ITS ---
Operative Note Operative Note Date of Service: 10/25/23 Narrative: Operative Note Preop diagnosis: 1. Right index finger Trigger finger Postop diagnosis: 1. Right index finger Trigger finger Procedure: 1. Right index finger A1 patricia release Surgeon: Oriana Beckford MD Anesthesia: local block using 1% lidocaine with epinephrine Findings: No locking or catching after A1 patricia release EBL: Less than 5 mL Tourniquet time: None Specimens: None Complications: None Disposition: Brought to recovery room in stable condition Plan: Follow-up for 10-14 days for wound check and suture removal Indications: The patient is 78 years old, with a right index finger trigger finger that has been unresponsive to nonoperative management. The risks and benefits of operative treatment including but not limited to risk of damage to blood vessels, nerves, tendons, infection, persistent pain, persistent symptoms, recurrence or possible need for additional surgery were discussed with the patient and the patient wishes to proceed with surgery. Procedure: Once consent was obtained a local block was performed in the preop area using a combination of 1% lidocaine with epinephrine. The patient was then brought back to the operating suite and placed on the operative table in supine position. The right upper extremity was prepped and draped in a standard surgical fashion. Once assured that we had a good block, a 1.5 cm oblique incision was made cent ered over the A1 patricia of the right index finger . The incision was made through the skin to the subcutaneous tissues using a #15 blade. Careful dissection was made down to the level of the A1 patricia using tenotomy scissors, with care being taken to protect the nearby neurovascular structures. A longitudinal incision was made in the A1 patricia 1st using a #15 blade, then using tenotomy scissors under direct visualization. The A1 patricia was noted to be thickened. Following our A1 patricia release, we no longer saw any locking or catching of the digit with flexion and extension. Once satisfied with our A1 patricia release the wound was copiously irrigated with normal saline and hemostasis was obtained with a brief period of local pressure. The skin edges were reapproximated with some 5.0 nylon suture material and a sterile dressing was applied. The patient appears to have tolerated the procedure well and with no complications. All digits were well vascularized at the conclusion of the case.
[2023-10-25 15:11] VITALS: BP 130/80; PULSE 62; RESP 18
== END 2023-10-25 15:12 | disposition home or self-care (01) ==
PROVIDERS: PCP Family Medicine; Visit Provider Orthopaedic Surgery
PROC: (CPT 26055; principal; 2023-10-25 11:30)
DX: M65.321 Trigger finger, right index finger (principal); E11.22 Type 2 diabetes mellitus with diabetic chronic kidney disease; I13.0 Hypertensive heart and chronic kidney disease with heart failure and stage 1 through stage 4 chronic kidney disease, or unspecified chronic kidney disease; N18.2 Chronic kidney disease, stage 2 (mild); I50.32 Chronic diastolic (congestive) heart failure; I25.10 Atherosclerotic heart disease of native coronary artery without angina pectoris; J45.909 Unspecified asthma, uncomplicated; G30.9 Alzheimer's disease, unspecified; F02.80 Dementia in other diseases classified elsewhere, unspecified severity, without behavioral disturbance, psychotic disturbance, mood disturbance, and anxiety
CPT/HCPCS: 26055; J0171

== ENCOUNTER → 2023-10-25 10:32 | Outpatient (BNV) | payer MEDICARE, MEDICAID, SELFPAY | PROVIDERS: PCP Family Medicine; Visit Provider Orthopaedic Surgery | DX: M65.321 Trigger finger, right index finger (principal) | CPT/HCPCS: 26055 ==

== ENCOUNTER 2023-11-09 14:15 | Outpatient (AMB) | payer MEDICARE, OTHER, SELFPAY ==
--- NOTE | 2023-11-09 14:20 | MHC.OFFVIS ---
Intake Visit Reasons: PO RT trigger release 10/25/23 AR Intake Note: Ed is a 78 year old right hand dominant female who presents today post operatively s/p right trigger release 10/25/23 AR. Patient report she is doing well. She has noticed improvements in her finger. Allergies No Known Allergies Allergy (Verified 11/09/23 14:27) HPI HPI PO RT trigger release 10/25/23 AR: Details: Ed is a 78 year old right hand dominant [place] speaking Diabetic woman who returns S/P right index trigger finger release, DOS: 10/25/23. She says she is doing well and no longer has any locking or catching. She is having some difficulty with stiffness in her finger. She reports having some slight locking in her left small finger, but she does not want to discuss treatment for it at this time. She also reports she has noticed all of her her fingertips turning purple at times, and reports that they can be worse with cold weather. PFSH Medical History Atherosclerotic cardiovascular disease PVD (peripheral vascular disease) Breast nodule Urinary incontinence Osteoporosis Dementia in Alzheimer's disease Chronic diastolic (congestive) heart failure Hypertension Vitamin D deficiency Carpal tunnel syndrome Cervical disc disorder CKD (chronic kidney disease), stage II TONY (generalized anxiety disorder) Vertigo CAD (coronary artery disease) GERD (gastroesophageal reflux disease) Migraine Diabetes mellitus Asthma Surgical History Hx of cardiac catheterization History of hernia repair History of left inguinal hernia repair History of right inguinal hernia repair History of cholecystectomy Hx of colonoscopy History of esophagogastroduodenoscopy (EGD) Family History Mother Heart problem Arthritis Social History Alcohol intake: never Patient Tobacco Use Status: Never used Tobacco Review of Systems Const All systems reviewed & are unremarkable except as noted in HPI and below Physical Exam Const General: no acute distress and alert Orientation/consciousness: patient oriented x3 Neuro General: patient oriented x3 Extrem Other: The patient was alert oriented and in no acute distress The incision is healing well with no erythema drainage or evidence of infection. Sutures removed and Steri-Strips applied She can make a fist and extend all her digits No locking or catching Sensation is intact Cap refill is brisk Psych Appearance: grossly normal Affect: normal affect Attitude: cooperative Assessment & Plan Assessment & Plan (1) Trigger finger, right index finger: Code(s): M65.321 - Trigger finger, right index finger Category: Medical (2) Diabetes mellitus: Code(s): E11.9 - Type 2 diabetes mellitus without complications Category: Medical (3) Fibromyalgia, primary: Code(s): M79.7 - Fibromyalgia Category: Medical Plan Assessment & Plan: 1. Right index finger trigger finger, S/P release DOS: 10/25/23 The patient appears to be doing well post-operatively I educated her about the post-operative course I discussed activity modifications, she is to lift nothing heavier than a cellphone for the next two weeks She will perform gentle ROM exercises at home She should avoid any underwater activities for the next 5 days She should gently massage about the incision site to reduce the risk of hypersensitivity She can follow up prn Scribed for Oriana Beckford MD by porfirio Serrato scribe, on 11/09/23 at 2:45 PM, EST. Scribe Plan - Not visible on output: Scribed for Oriana Beckford MD by porfirio Serrato scribe, on [ ] at [ ], EST. Coding Level of Care Code Global (62340) Diagnoses Trigger finger, right index finger M65.321 Diabetes mellitus E11.9 Fibromyalgia, primary M79.7
== END 2023-11-09 14:51 | disposition home or self-care (01) ==
PROVIDERS: PCP Family Medicine; Visit Provider Orthopaedic Surgery
DX: M65.321 Trigger finger, right index finger (principal); E11.9 Type 2 diabetes mellitus without complications; M79.7 Fibromyalgia
CPT/HCPCS: 99024

== ENCOUNTER → 2023-11-09 14:15 | Outpatient (BNVA) | payer MEDICARE, OTHER, SELFPAY | PROVIDERS: PCP Family Medicine; Visit Provider Orthopaedic Surgery | DX: M65.321 Trigger finger, right index finger (principal); M79.7 Fibromyalgia; E11.9 Type 2 diabetes mellitus without complications; Z48.02 Encounter for removal of sutures | CPT/HCPCS: 99212 ==

== ENCOUNTER 2023-11-24 14:13 | Outpatient (AMB) | payer MEDICARE, SELFPAY ==
[2023-11-24 14:16] VITALS: BP 124/82; PULSE 80; O2SAT 97; BMI 24.0
--- NOTE | 2023-11-24 14:16 | MHC.OFFVIS ---
Vital Signs 11/24/23 14:16 Height 5 ft Weight 123 lb 2 oz BMI 24.0 BP 124/82 Blood Pressure Location Lt brachial Position Sitting Pulse 80 Pulse Source Pulse Oximeter Pulse Oximetry (%) 97 Oxygen Delivery Method Room Air Intake Visit Reasons: asthma Can Line Examiner Required: Yes Can Line Examiner Name: [id number] Aurienis Allergies pregabalin [From Lyrica] Allergy (Intermediate, Verified 11/25/23 08:57) Rash HPI HPI asthma: Details: Ed is a very pleasant 78 year old, never smoker, with underlying childhood asthma, asthma COPD overlap syndrome GERD, osteoporosis and diastolic dysfunction. She was suboptimally controlled on Flovent, switched to Advair and Incruse was added. Unfortunately she continues with intermittent chest tightness, wheezing and dyspnea. At the last visit, she was switched to Trelegy with good effect. She continues to report mild dyspnea on exertion however denies cough, chest tightness or wheezing. She uses albuterol very infrequently since switching to Trelegy. She denies any visits to urgent care or hospitalizations since the last visit. [facility] Medical History Atherosclerotic cardiovascular disease PVD (peripheral vascular disease) Breast nodule Urinary incontinence Osteoporosis Dementia in Alzheimer's disease Chronic diastolic (congestive) heart failure Hypertension Vitamin D deficiency Carpal tunnel syndrome Cervical disc disorder CKD (chronic kidney disease), stage II TONY (generalized anxiety disorder) Vertigo CAD (coronary artery disease) GERD (gastroesophageal reflux disease) Migraine Diabetes mellitus Asthma Surgical History Hx of cardiac catheterization History of hernia repair History of left inguinal hernia repair History of right inguinal hernia repair History of cholecystectomy Hx of colonoscopy History of esophagogastroduodenoscopy (EGD) Family History Mother Heart problem Arthritis Social History Alcohol intake: never Patient Tobacco Use Status: Never used Tobacco Review of Systems Const Denies chills, Denies excessive sweating, Denies fever(s) and Denies night sweats Eyes Denies dry eyes, Denies irritation and Denies itchy eyes ENT Reports Normal hearing present, Denies nasal congestion, Denies nasal discharge, Denies post nasal drip and Denies sore throat Card Denies chest pain, Denies chest pain at rest, Denies chest pain with activity, Denies claudication, Denies leg edema, Denies orthopnea and Denies paroxysmal nocturnal dyspnea Resp Denies pain on inspiration, Denies pain with cough and Denies stridor Musc Denies myalgias Neuro Reports Normal hearing present Endo Denies excessive sweating Dav/Lymph Denies lymphadenopathy Aller/Immun Denies itchy eyes and Denies seasonal rhinorrhea Physical Exam Vital Signs: Last Vital Signs Pulse 80 11/24/23 14:16 BP 124/82 11/24/23 14:16 Pulse Ox 97 11/24/23 14:16 Oxygen Delivery Method Room Air 11/24/23 14:16 BMI result Body Mass Index 24.0 Const General: cooperative, healthy appearing, no acute distress and alert Orientation/consciousness: patient oriented x3 Limitations: ambulation with walker HEENT Head: Yes normal to inspection, Yes normocephalic and Yes atraumatic Ears: hearing grossly normal bilaterally and external ears normal Eyes General: appearance normal, both eyes and all related structures Eyelids: Yes eyelids normal Sclerae: sclerae normal EOM: EOMs intact bilaterally Neck Neck: Yes normal visual inspection and Yes no lymphadenopathy Lymphatic: no lymphadenopathy noted Chest Chest palpation & inspection: normal inspection of the chest Resp Effort & Inspection: normal respiratory effort, able to speak in complete sentences, no audible wheezes, no stridor, not tachypneic, no tripod positioning and no use of accessory muscles Auscultation: diminished lung sounds Cardio Jugular venous distension: no JVD Rate: regular rate Rhythm: regular rhythm Skin Other: warm, dry General skin exam: no rashes or lesions noted Neuro General: patient oriented x3 Cranial nerves: Yes Normal hearing present Cognition (Neuro): normal cognition Extrem General: Yes normal to inspection, Yes capillary refill normal, Yes no clubbing, cyanosis or edema and Yes no pedal edema Psych Appearance: grossly normal and well kempt Speech and movement: Normal speech and movement present and Clear speech present Affect: normal affect Attitude: cooperative Thought process: Normal thought process present Thought content: Normal thought content present Insight: Good insight present (Psych) Judgement: Good judgement present (Psych) Assessment & Plan Assessment & Plan (1) Asthma-COPD overlap syndrome: Code(s): J44.89 - Other specified chronic obstructive pulmonary disease Category: Medical Plan Ed reports good control of respiratory symptoms since switching to Trelegy. Advised to continue. All questions were answered and patient is in agreement of plan. Will follow-up in 3 months or sooner if needed. Coding Level of Care Code Est Pt Level 3 (76518) Diagnoses Asthma-COPD overlap syndrome J44.89
== END 2023-11-24 14:49 | disposition home or self-care (01) ==
PROVIDERS: PCP Family Medicine; Visit Provider Nurse Practitioner Family
DX: J44.89 Other specified chronic obstructive pulmonary disease (principal)
CPT/HCPCS: 99213

== ENCOUNTER → 2023-11-24 14:13 | Outpatient (BNVA) | payer MEDICARE, SELFPAY | PROVIDERS: PCP Family Medicine; Visit Provider Nurse Practitioner Family | DX: J44.89 Other specified chronic obstructive pulmonary disease (principal) | CPT/HCPCS: 99212 ==

== ENCOUNTER 2023-11-25 08:10 | Outpatient (AMB) | payer MEDICARE, SELFPAY ==
--- NOTE | 2023-11-25 08:12 | AM.OFFWIN_ITS ---
Intake Vital Signs 11/25/23 08:18 Weight 122 lb 2 oz BP 110/68 Blood Pressure Location Lt brachial Position Sitting Respiration 16 Pulse 69 Pulse Source Pulse Oximeter Temp 97.8 F Temp Source Temporal Artery Scan Pulse Oximetry (%) 97 Oxygen Delivery Method Room Air Intake Visit Reasons: est body shakes Intake Note: patient here c/o body tremors. Patient Tobacco Use Status: Never used Tobacco Allergies pregabalin [From Lyrica] Allergy (Intermediate, Verified 11/25/23 08:57) Rash Medication List - Last Reconciled 11/25/23 by Shruti Chaparro, [employer] REST[employer]ER- albuterol sulfate 90 mcg/actuation (Proventil HFA) 2 puffs inhalation Q4H PRN amitriptyline 25 mg PO BEDTIME 30 days aspirin 81 mg PO QAM benzonatate 100 mg PO BID PRN cbglgaxxmf-kknwlejnankyo-gsqh 50-325-40 mg 1 tab PO Q6H PRN calcium carbonate 600 mg PO BID celecoxib 100 mg PO BID cholecalciferol (vitamin D3) (Vitamin D3) 50 mcg PO DAILY cyclobenzaprine 10 mg PO BEDTIME diclofenac sodium 1% topical estradiol 0.01%(0.1mg/gram) vaginally 3 times a week; pea sized amount to urethra 3 times a week 30 days famotidine 40 mg PO BEDTIME qyouyqyfaya-osyhecxkc-vyqmaauy 200-62.5-25 mcg (Trelegy Ellipta) 1 inh inhalation DAILY gabapentin 300 mg PO TID levalbuterol HCl 1.25 mg (3 mL) inhalation Q4-6H PRN losartan 25 mg PO QAM memantine 5 mg PO BID metformin 500 mg PO TID mirabegron ER (Myrbetriq) 25 mg PO DAILY 30 days montelukast 10 mg PO QAM multivitamin 1 tab PO QAM omeprazole 20 mg PO DAILY 4 weeks oxycodone-acetaminophen 5-325 mg tabs PO quetiapine 25 mg PO BEDTIME rosuvastatin 20 mg PO QAM sucralfate (Carafate) 10 mL PO Q6H tramadol 50 mg PO BID PRN venlafaxine ER 37.5 mg PO DAILY Do you need a note to return to daycare/school/sports/work: No HPI HPI Comments History of Present Illness 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 Pt provides the history. Here for walk in CC: Feeling dizzy for years No falls or head trauma PCP: Edwige Headley October 17 Neuro: Unsure who this is it's a weird thing Reports PCP is aware of this, when asked what she has done for this she states she is active w/ Neuro Last week felt like head was moving from side to side and noticed having a lot of involuntarily movements of her body; worse when sitting or laying down to go asleep at night - affects the inside of her body like it is moving. Upon further questioning she reports this has been going on for 6 years. Exam: Awake alert, accompanied by , NAD. Head atraumatic PERRLA mild congestion behind R TM, otherwise bilat TM intact and clear RRR LS CTAB Mild fasiculation of R arm noted during exam, shuffled gait, requires asst of this does not appear to be new. Otherwise no tremors or shakes noted. Provides detailed hx for HPI. Answers questions appropriately. YO x 4 provided minimal input Review of her medications show a number of meds that could be contributing to her sx. Plan: Advised to fu with PCP for additional work up as well as Neurologist. Made aware of limitations of walk in clinic No acute or obvious cause for this chronic condition. This note is constructed using voice recognition software. While every effort has been made to ensure accuracy in asbestos siding installer, still errors may have been included Sometimes, these errors may affect the content or meaning of the given sentence . Total time spent caring for the patient today was 45 minutes. This includes time spent before the visit reviewing the chart, time spent during the visit, and time spent after the visit on documentation PFSH Medical History Atherosclerotic cardiovascular disease PVD (peripheral vascular disease) Breast nodule Urinary incontinence Osteoporosis Dementia in Alzheimer's disease Chronic diastolic (congestive) heart failure Hypertension Vitamin D deficiency Carpal tunnel syndrome Cervical disc disorder CKD (chronic kidney disease), stage II TONY (generalized anxiety disorder) Vertigo CAD (coronary artery disease) GERD (gastroesophageal reflux disease) Migraine Diabetes mellitus Asthma Surgical History Hx of cardiac catheterization History of hernia repair History of left inguinal hernia repair History of right inguinal hernia repair History of cholecystectomy Hx of colonoscopy History of esophagogastroduodenoscopy (EGD) Family History Mother Heart problem Arthritis Social History Alcohol intake: never Patient Tobacco Use Status: Never used Tobacco Physical Exam Vital Signs: Last Vital Signs Temp 97.8 F 11/25/23 08:18 Pulse 69 11/25/23 08:18 Resp 16 11/25/23 08:18 BP 110/68 11/25/23 08:18 Pulse Ox 97 11/25/23 08:18 Oxygen Delivery Method Room Air 11/25/23 08:18 Assessment & Plan Assessment & Plan (1) Muscle fasciculation: Code(s): R25.3 - Fasciculation Plan: . (2) Dizziness: Code(s): R42 - Dizziness and giddiness Plan: . Plan . Patient Instructions: Plan: Advised to fu with PCP for additional work up as well as Neurologist. Please call PCP today to arrange an appointment. Made aware of limitations of walk in clinic Coding Level of Care Code Est Pt Level 5 (20880) Diagnoses Muscle fasciculation R25.3 Dizziness R42
[2023-11-25 08:18] VITALS: BP 110/68; PULSE 69; RESP 16; TEMP 36.6; O2SAT 97
== END 2023-11-25 09:06 | disposition home or self-care (01) ==
PROVIDERS: PCP Family Medicine; Visit Provider Nurse Practitioner Family
DX: R25.3 Fasciculation (principal); R42 Dizziness and giddiness
CPT/HCPCS: 99215

== ENCOUNTER 2023-12-14 14:22 | Outpatient (AMB) | payer MEDICARE, SELFPAY ==
--- NOTE | 2023-12-14 14:23 | MHC.OFFVIS ---
Intake Visit Reasons: follow up Intake Note: Patient is present for follow up micro hematuria,frequency, and urgency Urology Medications: estrace cream, myrbetriq, Blood Thinner: aspirin PVR: 16ml's [employer] Supervisor Required: Yes [employer] Supervisor Name: REGGIE CRAIGJUSTIN Accompanied by: Self / Same As Patient Allergies pregabalin [From Lyrica] Allergy (Intermediate, Verified 12/14/23 15:11) Rash Medication List - Last Reconciled 12/14/23 by RACHEL Stauffer- albuterol sulfate 90 mcg/actuation (Proventil HFA) 2 puffs inhalation Q4H PRN amitriptyline 25 mg PO BEDTIME 30 days aspirin 81 mg PO QAM benzonatate 100 mg PO BID PRN zrpfdilaxq-jalcsgwmnxcxe-ndus 50-325-40 mg 1 tab PO Q6H PRN calcium carbonate 600 mg PO BID celecoxib 100 mg PO BID cholecalciferol (vitamin D3) (Vitamin D3) 50 mcg PO DAILY cyclobenzaprine 10 mg PO BEDTIME diclofenac sodium 1% topical estradiol 0.01%(0.1mg/gram) vaginally 3 times a week; pea sized amount to urethra 3 times a week 30 days famotidine 40 mg PO BEDTIME usnrfnivbvp-uccqsgfiu-readfjvi 200-62.5-25 mcg (Trelegy Ellipta) 1 inh inhalation DAILY gabapentin 300 mg PO TID levalbuterol HCl 1.25 mg (3 mL) inhalation Q4-6H PRN losartan 25 mg PO QAM memantine 5 mg PO BID metformin 500 mg PO TID mirabegron ER (Myrbetriq) 25 mg PO DAILY 30 days montelukast 10 mg PO QAM multivitamin 1 tab PO QAM omeprazole 20 mg PO DAILY 4 weeks oxycodone-acetaminophen 5-325 mg tabs PO quetiapine 25 mg PO BEDTIME rosuvastatin 20 mg PO QAM sucralfate (Carafate) 10 mL PO Q6H tramadol 50 mg PO BID PRN venlafaxine ER 37.5 mg PO DAILY HPI Comments Details: Ed is a very pleasant 78-year-old Mozambican-speaking female patient of Dr. Headley. She presents to the office today for a follow up of her ongoing urological issues. She has a past medical history of asthma, DM, migraine headaches, GERD, CAD, vertigo, anxiety, chronic kidney disease stage 2, cervical disc disorder, carpal tunnel syndrome, vitamin-D deficiency, hypertension, chronic diastolic heart failure, dementia Alzheimer's, osteoporosis, left breast nodule, and PVD. In discussion with the patient today she reports noting episodes of gross hematuria since her last office visit here approximately 4 months ago. She reports she had been compliant with Estrace and Myrbetriq as prescribed however has since recently ran out of refills. She does have a longstanding history of microscopic hematuria and has underwent multiple cystoscopy in the past in [place] in 2011 and again in 2020 both that she notes were within normal limits. She denies any smoking history and or known workplace chemical exposure. She reports that although she has experienced episodes of gross hematuria she has had no bothersome urinary issues or concerns since her last office visit here. She denies urinary urgency, urinary frequency, incontinence, flank pain, foul-smelling urine, fever, and or chills. Discussed at length potential causes for hematuria. I discussed reasons for blood in the urine may include but are not limited to kidney stones, cancer in the urinary tract, kidney stone disease or inflammatory conditions of the urinary tract. In office urinalysis results reviewed with the patient today microscopic hematuria noted otherwise negative leukocytes negative nitrates. PVR 16 mL She otherwise offers no other issues or concerns at this time. [facility] Medical History Atherosclerotic cardiovascular disease PVD (peripheral vascular disease) Breast nodule Urinary incontinence Osteoporosis Dementia in Alzheimer's disease Chronic diastolic (congestive) heart failure Hypertension Vitamin D deficiency Carpal tunnel syndrome Cervical disc disorder CKD (chronic kidney disease), stage II TONY (generalized anxiety disorder) Vertigo CAD (coronary artery disease) GERD (gastroesophageal reflux disease) Migraine Diabetes mellitus Asthma Surgical History Hx of cardiac catheterization History of hernia repair History of left inguinal hernia repair History of right inguinal hernia repair History of cholecystectomy Hx of colonoscopy History of esophagogastroduodenoscopy (EGD) Family History Mother Heart problem Arthritis Social History Alcohol intake: never Patient Tobacco Use Status: Never used Tobacco Review of Systems Const Reports as per [facility] Eyes Reports no additional complaints ENT Reports no additional complaints Card Reports as per [facility] Resp Reports as per [facility] GI Reports as per [facility] Reports as per [facility] Musc Reports as per [facility] Neuro Reports as per [facility] Psych Reports as per [facility] Endo Reports as per [facility] Physical Exam Const General: cooperative, healthy appearing, comfortable, no acute distress, well developed, alert and awake Orientation/consciousness: patient oriented x3 Limitations: no limitations HEENT Head: Yes normal to inspection, Yes normocephalic and Yes atraumatic Ears: hearing grossly normal bilaterally Eyes General: appearance normal, both eyes and all related structures Neck Neck: Yes normal visual inspection and Yes trachea midline Chest Chest palpation & inspection: normal inspection of the chest Resp Effort & Inspection: normal respiratory effort and able to speak in complete sentences Cardio Rate: regular rate GI Inspection: Yes normal to inspection General: Yes no CVA tenderness External Female Exam: normal external appearance and normal appearance of the urethra Speculum Exam - Vagina: normal appearance of the vagina Back/Spine/Pelvis Back: no CVA tenderness Skin General skin exam: no rashes or lesions noted Neuro General: patient oriented x3 Extrem General: Yes normal to inspection Psych Appearance: grossly normal and well kempt Mental Status: mental status grossly normal Speech and movement: Normal speech and movement present and Clear speech present Affect: normal affect Attitude: cooperative Thought process: Normal thought process present Thought content: Normal thought content present Insight: Fair insight present (Psych) Judgement: Fair judgement present (Psych) Office Procedures Post Void Residual Post Residual Void Post Void Residual (PVR): 16 11747-[id number] Void Residual by ultrasound Results AMB Urinalysis, Automated UA Leukoctes 0 Taqueria/uL Last Edit by [employer] on 12/14/23 15:59 UA Nitrite Negative Last Edit by [employer] on 12/14/23 15:59 UA Urobilinogen 0.2 mg/dL Last Edit by [employer] on 12/14/23 15:59 UA Protein 0 mg/dL Last Edit by [employer] on 12/14/23 15:59 UA pH 6.0 Last Edit by [employer] on 12/14/23 15:59 UA Blood 25 Flavio/uL Last Edit by [employer] on 07/30/24 15:59 UA Specific [place] 1.010 Last Edit by [employer] on 12/14/23 15:59 UA Ketone Negative Last Edit by [employer] on 12/14/23 15:59 UA Bilirubin 0 mg/dL Last Edit by [employer] on 12/14/23 15:59 UA Glucose 0 mg/dL Last Edit by Dakota [employer] on 12/14/23 15:59 Results Reviewed Results Reviewed: Laboratory Last Values Urine pH (Auto) 6.0 12/14/23 15:43 Specific [place] (Auto) 1.010 12/14/23 15:43 Urine Protein (Auto) 0 mg/dL 12/14/23 15:43 Glucose (UA)(Auto) 0 mg/dL 12/14/23 15:43 Urine Ketones (Auto) Negative 12/14/23 15:43 Urine Blood (Auto) 25 Flavio/uL 12/14/23 15:43 Urine Nitrite (Auto) Negative 12/14/23 15:43 Urine Bilirubin (Auto) 0 mg/dL 12/14/23 15:43 Urine Urobilinogen (Auto) 0.2 mg/dL 12/14/23 15:43 Leukocyte Esterase (Auto) 0 Taqueria/uL 12/14/23 15:43 Assessment & Plan Assessment & Plan (1) Gross hematuria: Code(s): R31.0 - Gross hematuria Category: Medical Plan In office urinalysis results reviewed with the patient today; will send for urine cytology. PVR 16 mL. Discussed at length potential causes of gross hematuria. Discussed obtaining CT urogram BUN and creatinine ordered for imaging. Refills provided on Myrbetriq and Estrace cream Patient currently denies any bothersome urinary issues. She reports be happy with current voiding parameters. Discussed, educated, and encouraged to drink adequate amount of water daily. Discussed importance of managing diabetes for overall health and well-being. Follow-up next available in office cystoscopy with imaging to be completed prior; or sooner with any issues, concerns, and or questions. Orders: Orders CT urogram Today R31.0 - Gross hematuria Creatinine Today R31.0 - Gross hematuria AMB Post Void Residual by ultrasound Today R35.0 - Frequency of micturition Blood Urea Nitrogen Today R31.0 - Gross hematuria AMB Urinalysis Automated Today Z13.9 - Encounter for screening, unspecified Urine Cytology Today R31.0 - Gross hematuria Medications: Changed From mirabegron ER (Myrbetriq) 25 mg PO DAILY 30 days 30 tabs 2RF N30.10 - Interstitial cystitis (chronic) without hematuria, N32.81 - Overactive bladder, R35.1 - Nocturia, R39.15 - Urgency of urination To mirabegron ER (Myrbetriq) 25 mg PO DAILY 90 tabs 2RF 90 days N30.10 - Interstitial cystitis (chronic) without hematuria, N32.81 - Overactive bladder, R35.1 - Nocturia, R39.15 - Urgency of urination Refilled estradiol 0.01%(0.1mg/gram) vaginally 3 times a week; pea sized amount to urethra 3 times a week 42.5 grams 3RF 30 days Patient Instructions: The patient had an opportunity to ask questions regarding the treatment plan. All questions were answered. Physical exam, labs, and imaging were discussed and reviewed in detail. As well as risks, benefits, and discussion of treatment choices. No major barriers to understanding were identified. The patient expressed understanding and agreement with the above treatment plan. The patient was made aware they should contact our office by phone for worsening of their current condition, the appearance of new symptoms, or with any questions or concerns. Compliance is encouraged with any medications and follow up testing that is ordered. It is a privilege to be allowed the opportunity to participate in? your urological care.? Again, if you have any questions or concerns If you have any questions or concerns please do not hesitate to contact me. The office is [phone]. This note is constructed using voice recognition software. While every effort has been made to ensure accuracy shank faker errors may have been included. Yours sincerely, JEFFERSON Stauffer Coding Level of Care Code Est Pt Level 4 (12635) Complex EM visit Add On G2211 Diagnoses Gross hematuria R31.0 CPT Codes Post Residual Void - PVR CPT Code: 85079-Zilp Void Residual by ultrasound ([id number]) Time Spent (min) 25
== END 2023-12-14 15:11 | disposition home or self-care (01) ==
PROVIDERS: PCP Family Medicine; Visit Provider Nurse Practitioner Family
DX: R31.0 Gross hematuria (principal); Z13.9 Encounter for screening, unspecified
CPT/HCPCS: 99214; G2211

== ENCOUNTER 2023-12-14 14:22 | Outpatient (REF) | payer MEDICARE, SELFPAY ==
[2023-12-14 16:39] LABS: Urine Cytology See Pathology rpt
== END 2023-12-14 14:23 | disposition home or self-care (01) ==
LOC: HO.LNP 14:22
PROVIDERS: PCP Family Medicine; Visit Provider Nurse Practitioner Family
DX: R31.0 Gross hematuria (principal)
CPT/HCPCS: 51798; 81003; 88112; 99212

== ENCOUNTER 2024-01-20 10:56 | Outpatient (REF) | payer MEDICARE, SELFPAY ==
--- NOTE | ~2024-01-20 | CT_ITS ---
EXAMINATION: CT ABDOMEN AND PELVIS WITHOUT AND WITH CONTRAST CLINICAL INFORMATION: Gross hematuria COMPARISON: CT dated November 09, 2022 TECHNIQUE: Noncontrast CT of the abdomen and pelvis is performed followed by split bolus contrast-enhanced images using 85 mL Omnipaque 350 contrast without reported immediate complications. Postcontrast imaging is performed during the combined nephrogram and excretion phase. Sagittal and coronal reformatted images were obtained on the technologist's workstation for both the precontrast and postcontrast phases. This CT examination was performed using dose optimization techniques as appropriate, variously including the following: *Automated exposure control *Adjustment of mA and/or kV according to patient size (this includes techniques or standardized protocols for targeted exams where dose is matched to indication/reason for exam; i.e. extremities or head) *Use of iterative reconstruction technique DLP: 486 mGy-cm FINDINGS: . Submitted for interpretation on March 17, 2024. LIVER, GALLBLADDER, AND BILIARY TREE: Liver measures 14 cm. No focal mass. Portal vein and hepatic veins are patent. Intrahepatic portion of the IVC is patent. Status post cholecystectomy. Common bile duct measures 7 mm with an abrupt cut off at the junction with the second portion of the duodenum. PANCREAS: No focal pancreatic mass. No main pancreatic ductal dilatation. No peripancreatic fluid collections SPLEEN: Measures 8 cm. No focal mass. ADRENAL GLANDS: No nodular lesions. KIDNEYS AND URETERS: No renal calculi. No hydronephrosis. No calcifications in the pelvicalyceal systems or the urinary excretory systems. No enhancing renal lesion. Questionable intraluminal filling defect within the papilla of the lower pelvicalyceal system, right kidney. There are few scattered, less than 4 mm cystic lesions throughout the renal cortex bilaterally. Normal urinary excretion into the collecting system. BLADDER: Fluid-filled. GASTROINTESTINAL TRACT: Abundant stool. No intestinal obstruction pattern. No pneumatosis intestinalis. No ascites. No pneumoperitoneum. The appendix is short and normal. Fluid-filled mildly prominent distal ileal loops, nonspecific. ABDOMINAL WALL: No gross hernia in the umbilical or the inguinal regions LYMPH NODES: Probable calcified lymph nodes in the retroperitoneum, nonspecific. VASCULAR: Throughout the abdominal aorta wall and iliac arteries without aneurysm or dissection. PELVIC VISCERA: Absent reproductive organs OSSEUS STRUCTURES: Multilevel thoracolumbar spondylosis more conspicuous at L3-4. S-shaped curvature of the thoracolumbar spine with a dextroconvex rotoscoliosis apex at L3-4 CT/CT urogram IMPRESSION: No hydronephrosis or nephrolithiasis. Artifactual versus urothelial lesion in the papule of the lower pelvicalyceal system right kidney. Electronically signed by: Lee Jacobson MD 03/17/2024 11:36 AM EDT
[2024-01-20] MEDS: iohexoL 350 MG/ML 100 ML INFUS..BTL 85 ML IV (11:53)
[2024-01-24 12:37] LABS: Creatinine POC 0.6 mg/dL (0.5-1.4); GFR POC > 60
== END 2024-01-20 10:57 | disposition home or self-care (01) ==
LOC: HO.CT 10:56
PROVIDERS: PCP Family Medicine; Visit Provider Nurse Practitioner Family
DX: R31.0 Gross hematuria (principal)
CPT/HCPCS: 74178; 82565; Q9967

== ENCOUNTER → 2024-01-20 10:59 | Outpatient (BNV) | payer MEDICARE, SELFPAY | PROVIDERS: PCP Family Medicine; Visit Provider Radiology Diagnostic Radiology | DX: R31.0 Gross hematuria (principal) | CPT/HCPCS: 74178 ==

== ENCOUNTER 2024-01-26 14:06 | Outpatient (AMB) | payer MEDICARE, SELFPAY ==
--- NOTE | 2024-01-26 14:16 | MHC.OFFVIS ---
Intake Visit Reasons: cysto Intake Note: Patient is present for Cystoscopy Urology Medication:MYRBETRIQ, AMITRIPTYLINE, ESTRADIOL Antibiotic Allergy:NONE Blood Thinner:ASPIRIN TODAY'S PVR:0ML'S Lot:[id number] Exp:03/20/25 College Sports Assistant Required: No Allergies pregabalin [From Lyrica] Allergy (Intermediate, Verified 03/01/24 13:47) Rash Medication List - Last Reconciled 01/26/24 by Tiffany Matos MD albuterol sulfate 90 mcg/actuation (Proventil HFA) 2 puffs inhalation Q4H PRN amitriptyline 25 mg PO BEDTIME 30 days aspirin 81 mg PO QAM benzonatate 100 mg PO BID PRN fakzcyufpg-myauepmqybxml-vnmt 50-325-40 mg 1 tab PO Q6H PRN calcium carbonate 600 mg PO BID celecoxib 100 mg PO BID cholecalciferol (vitamin D3) (Vitamin D3) 50 mcg PO DAILY cyclobenzaprine 10 mg PO BEDTIME diclofenac sodium 1% topical estradiol 0.01%(0.1mg/gram) vaginally 3 times a week; pea sized amount to urethra 3 times a week 30 days famotidine 40 mg PO BEDTIME vnvzsvafbxe-teytbmubd-geeleiwl 200-62.5-25 mcg (Trelegy Ellipta) 1 inh inhalation DAILY gabapentin 300 mg PO TID levalbuterol HCl 1.25 mg (3 mL) inhalation Q4-6H PRN losartan 25 mg PO QAM memantine 5 mg PO BID metformin 500 mg PO TID montelukast 10 mg PO QAM multivitamin 1 tab PO QAM omeprazole 20 mg PO DAILY 4 weeks oxycodone-acetaminophen 5-325 mg tabs PO quetiapine 25 mg PO BEDTIME rosuvastatin 20 mg PO QAM sucralfate (Carafate) 10 mL PO Q6H tamsulosin (Flomax) 0.4 mg PO BEDTIME tramadol 50 mg PO BID PRN venlafaxine ER 37.5 mg PO DAILY HPI Comments Details: 01/26/2024--here for cystoscopy. Cystoscopy findings bladder wall thickening, urethral narrowing. We will hold on Myrbetriq and start Flomax 0.4 mg at bedtime. Discussed possible side effects of dizziness and decrease in blood pressure. The patient's daughter states that her mother has episodes of being unbalanced she was evaluated by ENT and they did not find anything. The patient lives with her daughter. Discussed if any side effects to stop medication and give our office a call. Review of chart: 12/14/23--Ed is a very pleasant 78-year-old Singaporean-speaking female patient of Dr. Headley. She presents to the office today for a follow up of her ongoing urological issues. She has a past medical history of asthma, DM, migraine headaches, GERD, CAD, vertigo, anxiety, chronic kidney disease stage 2, cervical disc disorder, carpal tunnel syndrome, vitamin-D deficiency, hypertension, chronic diastolic heart failure, dementia Alzheimer's, osteoporosis, left breast nodule, and PVD. In discussion with the patient today she reports noting episodes of gross hematuria since her last office visit here approximately 4 months ago. She reports she had been compliant with Estrace and Myrbetriq as prescribed however has since recently ran out of refills. She does have a longstanding history of microscopic hematuria and has underwent multiple cystoscopy in the past in [place] in 2011 and again in 2020 both that she notes were within normal limits. She denies any smoking history and or known workplace chemical exposure. She reports that although she has experienced episodes of gross hematuria she has had no bothersome urinary issues or concerns since her last office visit here. She denies urinary urgency, urinary frequency, incontinence, flank pain, foul-smelling urine, fever, and or chills. Discussed at length potential causes for hematuria. I discussed reasons for blood in the urine may include but are not limited to kidney stones, cancer in the urinary tract, kidney stone disease or inflammatory conditions of the urinary tract. In office urinalysis results reviewed with the patient today microscopic hematuria noted otherwise negative leukocytes negative nitrates. PVR 16 mL She otherwise offers no other issues or concerns at this time. [facility] Medical History Atherosclerotic cardiovascular disease PVD (peripheral vascular disease) Breast nodule Urinary incontinence Osteoporosis Dementia in Alzheimer's disease Chronic diastolic (congestive) heart failure Hypertension Vitamin D deficiency Carpal tunnel syndrome Cervical disc disorder CKD (chronic kidney disease), stage II TONY (generalized anxiety disorder) Vertigo CAD (coronary artery disease) GERD (gastroesophageal reflux disease) Migraine Diabetes mellitus Asthma Surgical History H/O hand surgery Hx of cardiac catheterization History of hernia repair History of left inguinal hernia repair History of right inguinal hernia repair History of cholecystectomy Hx of colonoscopy History of esophagogastroduodenoscopy (EGD) Family History Mother Heart problem Arthritis Social History Alcohol intake: never Patient Tobacco Use Status: Never used Tobacco Office Procedures Cystoscopy Consent Discussed risk and benefit or proposed procedure with the patient. Information consent for procedure given to the patient. Discussed technical aspects, risks, benefits and alternatives in full. Addressed all of the patient's questions and concerns regarding the procedure. The patient demonstrated knowledge and understanding. They wish to proceed with this procedure. Preparation The patient was prepped in the usual manner. A as400 operator was present and in the room. Genitalia was prepped with betadine solution in a sterile manner. Lidocaine Jelly 2% was placed into the urethra and 16Fr flexible Olympus cystoscope was inserted into the meatus after adequate lubrication. Procedure Time out per protocol performed. Bladder Inspection Bladder Inspection: The bladder was inspected in its entirety with utilization retroflexion displaying: Tumor(s): no suspicious bladder lesions visualized Trabeculation: Moderate with cellule changes Mucosal Erthema: NA Orifices: normal shape and position Urethra: mildly stenotic Cystoscopy findings: Bladder wall thickening, urethral narrowing, no suspicious bladder lesions visualized 16426-[id number] DISPOSABLE SCOPE URO-G FLEXIBLE SCOPE Procedure code (CPT) selection complete Post Void Residual Post Residual Void Post Void Residual (PVR): 0 [id number]-[id number] Void Residual by ultrasound Office Meds lidocaine HCl 2 % mucosal jelly in applicator Performing Provider: Tiffany Matos MD Performing Location: [facility] Administered by: Daren Schilling LPN on 01/26/24 14:54 Dose Route Admin Location Dispensed Lot Number Expiration Date [facility] Correctional Officer Lieutenant 10 mL intra-urethral 10 mL naproxen 500 mg tablet Performing Provider: Tiffany Matos MD Performing Location: [facility] [place] Administered by: Daren Schilling LPN on 01/26/24 14:54 Dose Route Admin Location Dispensed Lot Number Expiration Date [employer] Lieutenant 500 mg PO 1 tab ciprofloxacin HCl 500 mg tablet Performing Provider: Tiffany Matos MD Performing [facility] [place] [facility] Administered by: Daren Schilling LPN on 01/26/24 14:54 Dose Route Admin Location Dispensed Lot Number Expiration Date [employer] Lieutenant 500 mg PO 1 tab Results AMB Urinalysis, Automated UA Leukoctes 0 Taqueria/uL Last Edit by ROSALINDA Baez on 01/26/24 14:56 UA Nitrite Negative Last Edit by ROSALINDA Baez on 01/26/24 14:56 UA Urobilinogen 0.2 mg/dL Last Edit by ROSALINDA Baez on 01/26/24 14:56 UA Protein 0 mg/dL Last Edit by ROSALINDA Baez on 01/26/24 14:56 UA pH 6.5 Last Edit by ROSALINDA Baez on 01/26/24 14:56 UA Blood 25 Flavio/uL Last Edit by ROSALINDA Baez on 01/26/24 14:56 UA Specific [place] 1.015 Last Edit by ROSALINDA Baez on 01/26/24 14:56 UA Ketone Negative Last Edit by ROSALINDA Baez on 01/26/24 14:56 UA Bilirubin 0 mg/dL Last Edit by ROSALINDA Baez on 01/26/24 14:56 UA Glucose 0 mg/dL Last Edit by ROSALINDA Baez on 01/26/24 14:56 Results Reviewed Results Reviewed: Laboratory Last Values Urine pH (Auto) 6.5 01/26/24 14:55 Specific [place] (Auto) 1.015 01/26/24 14:55 Urine Protein (Auto) 0 mg/dL 01/26/24 14:55 Glucose (UA)(Auto) 0 mg/dL 01/26/24 14:55 Urine Ketones (Auto) Negative 01/26/24 14:55 Urine Blood (Auto) 25 Flavio/uL 01/26/24 14:55 Urine Nitrite (Auto) Negative 01/26/24 14:55 Urine Bilirubin (Auto) 0 mg/dL 01/26/24 14:55 Urine Urobilinogen (Auto) 0.2 mg/dL 01/26/24 14:55 Leukocyte Esterase (Auto) 0 Taqueria/uL 01/26/24 14:55 Assessment & Plan Assessment & Plan (1) Microhematuria: Code(s): R31.29 - Other microscopic hematuria Category: Medical (2) Sensation of pressure in bladder area: Code(s): R39.89 - Other symptoms and signs involving the genitourinary system Category: Medical (3) Urinary frequency: Code(s): R35.0 - Frequency of micturition Category: Medical (4) Feeling of incomplete bladder emptying: Code(s): R39.14 - Feeling of incomplete bladder emptying Category: Medical Plan tamsulosin fu in 8 weeks monitor PVR Orders: Orders AMB Urinalysis Automated 01/26/24 Z13.9 - Encounter for screening, unspecified AMB Cystoscopy 01/26/24 R31.0 - Gross hematuria, R35.0 - Frequency of micturition, R31.29 - Other microscopic hematuria, R39.89 - Other symptoms and signs involving the genitourinary system Medications: New tamsulosin (Flomax) 0.4 mg PO BEDTIME 30 caps 3RF For urination Patient Instructions: The patient had an opportunity to ask questions regarding treatment plan. The patient expressed understanding and agreement with the above treatment plan. The patient is aware they should contact our office by phone for worsening of their current condition or the appearance of new symptoms. Compliance is encouraged with any medications and followup testing that is ordered. It is a privilege to be allowed the opportunity to participate in the urologic care of your patient. If you have any questions or concerns regarding treatment for the above conditions please do not hesitate to contact me. The office telephone contact is [phone]. This note is constructed in part using voice recognition software. While every effort has been made to ensure accuracy vice president biostatistics errors may have been included. Yours sincerely, Tiffany Matos MD Coding Level of Care Code Est Pt Level 4 (78489) Diagnoses Microhematuria R31.29 Sensation of pressure in bladder area R39.89 Urinary frequency R35.0 Feeling of incomplete bladder emptying R39.14 CPT Codes Cystoscopy - CPT: 99280-Cgmcvdvlev ([id number]) Post Residual Void - PVR CPT Code: 57044-Uwuc Void Residual by ultrasound ([id number])
== END 2024-01-26 15:50 | disposition home or self-care (01) ==
PROVIDERS: PCP Family Medicine; Visit Provider Urology
DX: R31.29 Other microscopic hematuria (principal); R39.89 Other symptoms and signs involving the genitourinary system; R35.0 Frequency of micturition; R39.14 Feeling of incomplete bladder emptying
CPT/HCPCS: 52000; 99214

== ENCOUNTER → 2024-01-26 14:06 | Outpatient (BNVA) | payer MEDICARE, SELFPAY | PROVIDERS: PCP Family Medicine; Visit Provider Urology | DX: R31.29 Other microscopic hematuria (principal); R39.89 Other symptoms and signs involving the genitourinary system; R35.0 Frequency of micturition; R39.14 Feeling of incomplete bladder emptying | CPT/HCPCS: 51798; 52000; 81003; 99212 ==

== ENCOUNTER 2024-02-01 15:15 | Outpatient (AMB) | payer MEDICARE, MEDICAID, SELFPAY ==
[2024-02-01 15:34] VITALS: BP 124/82; PULSE 72; BMI 24.5
--- NOTE | 2024-02-01 15:34 | A.OFFVIS_ITS ---
Vital Signs 02/01/24 15:34 Height 5 ft Weight 125 lb 3.561 oz BMI 24.5 BP 124/82 Blood Pressure Location Rt brachial Position Sitting Pulse 72 Pulse Source Monitor Intake Visit Reasons: 6 month follow up Digital Project Manager Required: Yes Digital Project Manager Language: Child Development Instructor Name: alexander goldstein [id number] Allergies pregabalin [From Lyrica] Allergy (Intermediate, Verified 02/01/24 15:38) Rash Medication List - Last Reconciled 02/01/24 by SOBIA Salazar albuterol sulfate 90 mcg/actuation (Proventil HFA) 2 puffs inhalation Q4H PRN amitriptyline 25 mg PO BEDTIME 30 days aspirin 81 mg PO QAM benzonatate 100 mg PO BID PRN ektfjbcine-yxeccrnbakocw-xmcd 50-325-40 mg 1 tab PO Q6H PRN calcium carbonate 600 mg PO BID celecoxib 100 mg PO BID cholecalciferol (vitamin D3) (Vitamin D3) 50 mcg PO DAILY cyclobenzaprine 10 mg PO BEDTIME diclofenac sodium 1% topical estradiol 0.01%(0.1mg/gram) vaginally 3 times a week; pea sized amount to urethra 3 times a week 30 days famotidine 40 mg PO BEDTIME zxdwfelbalb-tzbxislns-dwlbiydr 200-62.5-25 mcg (Trelegy Ellipta) 1 inh inhalation DAILY gabapentin 300 mg PO TID levalbuterol HCl 1.25 mg (3 mL) inhalation Q4-6H PRN losartan 25 mg PO QAM memantine 5 mg PO BID metformin 500 mg PO TID montelukast 10 mg PO QAM multivitamin 1 tab PO QAM omeprazole 20 mg PO DAILY 4 weeks oxycodone-acetaminophen 5-325 mg tabs PO quetiapine 25 mg PO BEDTIME rosuvastatin 20 mg PO QAM sucralfate (Carafate) 10 mL PO Q6H tamsulosin (Flomax) 0.4 mg PO BEDTIME tramadol 50 mg PO BID PRN venlafaxine ER 37.5 mg PO DAILY HPI HPI 6 month follow up : Details: Ed is a 78-year-old female with past medical history of hypertension, diabetes, hyperlipidemia, diastolic heart failure, nonobstructive CAD, chronic shortness of breath with newer finding of COPD who presents for follow-up. Today she states that her breathing has improved some but is still bothersome to her. She is following with pulmonology. She continues to feel like she has to take a deep breath frequently throughout the day. She tells me she is having trouble getting the air out as well. She has a continual tightness feeling in her chest which she says at times does feel worse. Today she adds that when she walks her symptoms are increased. She is mostly sedentary and ambulates only short distances with a walker. No PND, orthopnea or edema. No presyncope, s yncope, falls. Taking meds as directed. 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 [facility] Medical History Atherosclerotic cardiovascular disease PVD (peripheral vascular disease) Breast nodule Urinary incontinence Osteoporosis Dementia in Alzheimer's disease Chronic diastolic (congestive) heart failure Hypertension Vitamin D deficiency Carpal tunnel syndrome Cervical disc disorder CKD (chronic kidney disease), stage II TONY (generalized anxiety disorder) Vertigo CAD (coronary artery disease) GERD (gastroesophageal reflux disease) Migraine Diabetes mellitus Asthma Surgical History Hx of cardiac catheterization History of hernia repair History of left inguinal hernia repair History of right inguinal hernia repair History of cholecystectomy Hx of colonoscopy History of esophagogastroduodenoscopy (EGD) Family History Mother Heart problem Arthritis Social History Alcohol intake: never Patient Tobacco Use Status: Never used Tobacco Review of Systems Const All systems reviewed & are unremarkable except as noted in HPI and below ENT Denies dizziness Card Reports chest pain, Reports chest pain at rest, Reports chest pain with activity, Denies rapid heart rate, Denies pedal edema, Denies edema, Denies leg edema, Denies lightheadedness, Denies palpitations, Reports dyspnea, Reports dyspnea on exertion and Denies orthopnea Resp Denies cough, Reports dyspnea and Reports dyspnea on exertion GI Denies hematochezia and Denies change in stool character Musc Denies abnormal gait, Reports limited range of motion, Reports muscle cramps, Denies muscle weakness, Denies numbness, Denies radiating pain into limb, Denies stiffness and Denies tingling Neuro Denies abnormal gait, Denies dizziness, Denies numbness and Denies tingling Endo Denies palpitations Physical Exam Vital Signs: Last Vital Signs Pulse 72 02/01/24 15:34 BP 124/82 02/01/24 15:34 BMI result Body Mass Index 24.5 Const General: cooperative, healthy appearing, comfortable and no acute distress Orientation/consciousness: patient oriented x3 Neck Neck: Yes normal visual inspection Resp Effort & Inspection: normal respiratory effort Auscultation: clear to auscultation bilaterally, no crackles, no rales, no rhonchi and no wheezes Cardio Jugular venous distension: no JVD Rate: regular rate Rhythm: regular rhythm Heart sounds: S1 normal heart sound present, S2 normal heart sound present, no murmurs and no rubs Skin General skin exam: no rashes or lesions noted Neuro General: patient oriented x3 Extrem General: Yes normal to inspection, No no pedal edema and No calf tenderness Psych Appearance: grossly normal Mental Status: mental status grossly normal Speech and movement: Normal speech and movement present Office Procedures EKG Details: Today, read by me, normal sinus rhythm, left axis deviation, can not exclude anterior infarct, age undetermined, rate 72, QTC 433 millisecond [id number], Complete Assessment & Plan Assessment & Plan (1) Atherosclerotic cardiovascular disease: Code(s): I25.10 - Atherosclerotic heart disease of [place] coronary artery without angina pectoris Category: Medical Plan: Patient previously followed with band sawmill operator in [place]. Known to have nonobstructive coronary artery disease based on cardiac catheterization 2020. She started following with us for symptom of shortness of breath. EKG done on prior visit showing normal sinus rhythm with left axis deviation, rate 78. An echocardiogram was done on 11/12/2022 showing EF 65-70%, grade 1 diastolic dysfunction, no valve abnormalities. Holter monitor done 11/12/2022 showing sinus rhythm with average heart rate 72, rare PACs, her symptoms correlated with sinus rhythm. Following last visit she underwent a PFT which did show mild COPD. She now follows with pulmonology in is undergoing different treatments to improve her chronic feeling of shortness of breath. Today she reports her symptom of feeling like she has to take a deep breath in continues. She is also describing an increased amount of tightness in her chest. I do not have the actual cardiac catheterization report to better understand the degree of nonobstructive CAD. Only notes that indicate no obstructive lesions in 2020. She did have a CT scan of the chest done 06/15/2023 which notes no coronary calcification. Will order a pharmacological nuclear stress test to evaluate for ischemia. She will not be able to walk on a treadmill. Plan to call her with results. Continue to follow with pulmonology. Signs and symptoms of angina reviewed with her. Emergency care if ever needed for symptoms. Continue aspirin, rosuvastatin with ideal LDL goal less than 70, losartan. Cardiology follow-up in 6 months sooner if needed -will adjust appointment if nuclear stress test abnormal. (2) Chest pain: Code(s): R07.9 - Chest pain, unspecified Category: Medical Plan: As above (3) Shortness of breath: Code(s): R06.02 - Shortness of breath Category: Medical Plan: Being followed by pulmonology for COPD (4) Hypertension: Code(s): I10 - Essential (primary) hypertension Category: Medical Qualifiers: Hypertension type: primary hypertension Qualified Code(s): I10 - Essential (primary) hypertension Plan: Well controlled at present time. No med changes made. (5) Chronic diastolic (congestive) heart failure: Code(s): I50.32 - Chronic diastolic (congestive) heart failure Category: Medical Plan: No clinical signs of heart failure on examination. She does have this sensation that she has to take extra deep breaths in. BNP 62 on 06/03/2023. Signs and symptoms of heart failure reviewed with her. Plan Time spent on chart review, documentation, interview and assessment Orders: Orders CA lexiscan stress w magalis Today I25.10 - Atherosclerotic heart disease of [place] coronary artery without angina pectoris, R06.02 - Shortness of breath, R07.9 - Chest pain, unspecified NM cardiolite stress test Today I25.10 - Atherosclerotic heart disease of [place] coronary artery without angina pectoris, R06.02 - Shortness of breath, R07.9 - Chest pain, unspecified Coding Level of Care Code Est Pt Level 4 (76233) Diagnoses Atherosclerotic cardiovascular disease I25.10 Chest pain R07.9 Shortness of breath R06.02 Primary hypertension I10 Hypertension type: primary hypertension Chronic diastolic (congestive) heart failure I50.32 CPT Codes EKG - CPT: 66040-Gpmostawpnqobfbnq, Complete ([id number]) Time Spent (min) 28
== END 2024-02-01 16:12 | disposition home or self-care (01) ==
PROVIDERS: PCP Family Medicine; Visit Provider Nurse Practitioner Family
DX: I25.10 Atherosclerotic heart disease of native coronary artery without angina pectoris (principal); R07.9 Chest pain, unspecified; R06.02 Shortness of breath; I10 Essential (primary) hypertension; I50.32 Chronic diastolic (congestive) heart failure
CPT/HCPCS: 93010; 99214

== ENCOUNTER → 2024-02-01 15:15 | Outpatient (BNVA) | payer MEDICARE, OTHER, SELFPAY | PROVIDERS: PCP Family Medicine; Visit Provider Nurse Practitioner Family | DX: I25.10 Atherosclerotic heart disease of native coronary artery without angina pectoris (principal); I11.0 Hypertensive heart disease with heart failure; R07.9 Chest pain, unspecified; R06.02 Shortness of breath; I50.32 Chronic diastolic (congestive) heart failure; E78.5 Hyperlipidemia, unspecified; E11.9 Type 2 diabetes mellitus without complications; J44.9 Chronic obstructive pulmonary disease, unspecified | CPT/HCPCS: 93005; 99212 ==

== ENCOUNTER 2024-02-15 15:17 | Outpatient (AMB) | payer MEDICARE, SELFPAY ==
--- NOTE | 2024-02-15 15:19 | A.OFFVIS_ITS ---
Vital Signs 02/15/24 15:22 Height 5 ft Weight 125 lb 2 oz BMI 24.4 BP 118/76 Blood Pressure Location Rt brachial Position Sitting Pulse 75 Pulse Source Pulse Oximeter Pulse Oximetry (%) 95 Oxygen Delivery Method Room Air Intake Visit Reasons: Asthma Design Studio Consultant Required: Yes Design Studio Consultant Language: Employment Trainer Name: [id number] Allergies pregabalin [From Lyrica] Allergy (Intermediate, Verified 02/15/24 15:30) Rash HPI HPI Asthma: Details: Ed is a very pleasant 78 year old, never smoker, with underlying childhood asthma, asthma COPD overlap syndrome GERD, osteoporosis and diastolic dysfunction. She was suboptimally controlled on Flovent, Advair, Incruse, currently on Trelegy, using albuterol infrequently. She continues to report dyspnea on exertion and labored breathing. She denies any coughing or wheezing at this time. She did recently see cardiology two weeks ago who noted increased dyspnea and labored breathing. She is awaiting nuclear stress test. Of note, patient with Raynaud's and has not had further work up of underlying autoimmune conditions that could be contributing to this or pulmonary symptoms. [facility] Medical History Atherosclerotic cardiovascular disease PVD (peripheral vascular disease) Breast nodule Urinary incontinence Osteoporosis Dementia in Alzheimer's disease Chronic diastolic (congestive) heart failure Hypertension Vitamin D deficiency Carpal tunnel syndrome Cervical disc disorder CKD (chronic kidney disease), stage II TONY (generalized anxiety disorder) Vertigo CAD (coronary artery disease) GERD (gastroesophageal reflux disease) Migraine Diabetes mellitus Asthma Surgical History Hx of cardiac catheterization History of hernia repair History of left inguinal hernia repair History of right inguinal hernia repair History of cholecystectomy Hx of colonoscopy History of esophagogastroduodenoscopy (EGD) Family History Mother Heart problem Arthritis Social History Alcohol intake: never Patient Tobacco Use Status: Never used Tobacco Review of Systems Const Denies chills, Denies excessive sweating, Denies fever(s), Denies headache(s) and Denies night sweats Eyes Denies dry eyes, Denies irritation and Denies itchy eyes ENT Reports Normal hearing present, Denies headache(s), Denies nasal congestion, Denies nasal discharge, Denies post nasal drip and Denies sore throat Card Denies chest pain, Denies chest pain at rest, Denies chest pain with activity, Denies claudication, Denies leg edema, Denies orthopnea and Denies paroxysmal nocturnal dyspnea Resp Denies chest congestion, Denies cough, Denies excessive phlegm production, Denies pain on inspiration, Denies pain with cough, Denies stridor and Denies wheezing Musc Denies myalgias Neuro Reports Normal hearing present and Denies headache(s) Endo Denies excessive sweating Dav/Lymph Denies lymphadenopathy Aller/Immun Denies itchy eyes, Denies seasonal rhinorrhea and Denies wheezing Physical Exam Vital Signs: Last Vital Signs Pulse 75 02/15/24 15:22 BP 118/76 02/15/24 15:22 Pulse Ox 95 02/15/24 15:22 Oxygen Delivery Method Room Air 02/15/24 15:22 BMI result Body Mass Index 24.4 Neuro Cranial nerves: Yes Normal hearing present Assessment & Plan Assessment & Plan (1) Asthma-COPD overlap syndrome: Code(s): J44.89 - Other specified chronic obstructive pulmonary disease Category: Medical (2) Dyspnea: Code(s): R06.00 - Dyspnea, unspecified Category: Medical (3) Raynauds disease: Code(s): I73.00 - Raynaud's syndrome without gangrene Category: Medical Plan Ed reports suboptimal control with Trelegy, now with more labored breathing at rest and more noticeable dyspnea on exertion. She is awaiting stress test. She also noted Raynauds today without further evaluation of underlying autoimmune conditions. Will send for labs to assess and consider referral back to rheumatology. Will also send for CXR. She is aware if symptoms worsen to seek emergent care. All questions were answered and patient is in agreement of plan. Will follow-up to review results or sooner if needed. Orders: Orders Sjogren's Antibodies Today I73.00 - Raynaud's syndrome without gangrene Rheumatoid Factor Today I73.00 - Raynaud's syndrome without gangrene CRP High Sensitivity Today I73.00 - Raynaud's syndrome without gangrene BERTO Reflex Titer and Pattern Today I73.00 - Raynaud's syndrome without gangrene, R06.00 - Dyspnea, unspecified Anti DNA DS Antibody Today I73.00 - Raynaud's syndrome without gangrene Complete Blood Count Auto Diff Today R06.00 - Dyspnea, unspecified Scleroderma 70 Antibody Today I73.00 - Raynaud's syndrome without gangrene XR chest 2V Today R06.00 - Dyspnea, unspecified Coding Level of Care Code Est Pt Level 4 (15063) Diagnoses Asthma-COPD overlap syndrome J44.89 Dyspnea R06.00 Raynauds disease I73.00
[2024-02-15 15:22] VITALS: BP 118/76; PULSE 75; O2SAT 95; BMI 24.4
== END 2024-02-15 16:12 | disposition home or self-care (01) ==
PROVIDERS: PCP Family Medicine; Visit Provider Nurse Practitioner Family
DX: J44.89 Other specified chronic obstructive pulmonary disease (principal); R06.00 Dyspnea, unspecified; I73.00 Raynaud's syndrome without gangrene
CPT/HCPCS: 99214

== ENCOUNTER → 2024-02-15 15:17 | Outpatient (BNVA) | payer MEDICARE, SELFPAY | PROVIDERS: PCP Family Medicine; Visit Provider Nurse Practitioner Family | DX: J44.89 Other specified chronic obstructive pulmonary disease (principal); R06.00 Dyspnea, unspecified; I73.00 Raynaud's syndrome without gangrene | CPT/HCPCS: 99212 ==

== ENCOUNTER 2024-02-16 15:27 | Outpatient (REF) | payer MEDICARE, SELFPAY ==
[2024-02-16 18:09] LABS: MANUAL DIFF FLAG NO
[2024-02-16 18:12] LABS: Basophils Absolute Auto 0.1 X10*3/uL (0.0-0.2); Eosinophils Absolute Auto 0.3 X10*3/uL (0.0-0.4); Eosinophils Percent Auto 4.6 % (0-4); Hematocrit 38.5 % (37.0-47.0); Imm Gran Abs Auto 0.01 X10*3/uL (0.00-0.03); Imm Gran Pct Auto 0.2 % (0.0-0.4); Lymphocytes Percent Auto 31.1 % (20-40); Mean Corpuscular HGB Conc 33.8 g/dl (31.0-35.0); Mean Corpuscular Hemoglobin 31.6 pg (27.0-33.0); Mean Corpuscular Volume 93.4 fL (80.0-98.0); Mean Platelet Volume 11.7 fL (9.4-12.3); Monocytes Absolute Auto 0.6 X10*3/uL (0.1-1.2); Monocytes Percent Auto 9.2 % (2-11); Neutrophils Absolute Auto 3.4 x10*3/uL (2.0-8.3); Neutrophils Percent Auto 53.9 % (45-73); Platelet Count 206 X10*3/uL (160-400); Red Blood Count 4.12 X10*6/uL (4.20-5.50); Red Cell Distribution Width 13.6 % (11.0-16.0); White Blood Count 6.3 X10*3/uL (4.8-10.8)
[2024-02-16 18:32] LABS: Rheumatoid Factor < 13.0 IU/mL (<15.0)
[2024-02-16 18:34] LABS: Blood Urea Nitrogen 17 mg/dL (9-16); Estimated Glomerular Filt Rate > 60
[2024-02-19 02:33] LABS: CRP High Sensitivity <0.2 mg/L
[2024-02-22 08:14] LABS: Anti Nuclear Antibody Screen NEGATIVE (NEGATIVE)
[2024-02-23 16:47] LABS: Anti DNA DS Antibody 1 IU/mL; Antibody to SS-A Antigen <1.0 NEG AI (<1.0 NEG); Antibody to SS-B Antigen <1.0 NEG AI (<1.0 NEG); Scleroderma 70 Antibody <1.0 NEG AI (<1.0 NEG)
[2024-02-24 15:53] LABS: Vitamin D 25-OH, D2 <4 ng/mL; Vitamin D 25-OH, D3 29 ng/mL; Vitamin D 25-OH, Total 29 ng/mL (30-100)
== END 2024-02-16 15:28 | disposition home or self-care (01) ==
LOC: HO.WFDLDS 15:27
PROVIDERS: Student in an Organized Health Care Education/Training Program; Referring Provider Nurse Practitioner Family; Visit Provider Nurse Practitioner Family
DX: E55.9 Vitamin D deficiency, unspecified (principal); R31.0 Gross hematuria; I73.00 Raynaud's syndrome without gangrene; R06.00 Dyspnea, unspecified
CPT/HCPCS: 36415; 82306; 82565; 84520; 85025; 86038; 86141; 86225; 86235; 86431

== ENCOUNTER 2024-02-17 15:20 | Outpatient (REF) | payer MEDICARE, SELFPAY ==
--- NOTE | ~2024-02-17 | XR_ITS ---
EXAMINATION: XR CHEST 2 VIEWS CLINICAL INFORMATION: Dyspnea and vomiting. COMPARISON: CT chest dated 06/15/2023. TECHNIQUE: Frontal and lateral views of the chest were obtained. FINDINGS: The heart, great vessels, pulmonary vasculature and mediastinum are normal. The lungs show no focal infiltrate, effusion or pneumothorax. There is no acute osseous abnormality. There is a moderate thoracolumbar dextroscoliosis, and there is mild endplate arthropathy. There are right upper quadrant surgical clips. XR/XR chest 2V IMPRESSION: No active cardiopulmonary disease. Electronically signed by: Waqar Maier MD 02/18/2024 08:45 AM EDT
== END 2024-02-17 15:21 | disposition home or self-care (01) ==
LOC: HO.XRAY 15:20
PROVIDERS: PCP Family Medicine; Visit Provider Nurse Practitioner Family
DX: R06.00 Dyspnea, unspecified (principal)
CPT/HCPCS: 71046

== ENCOUNTER 2024-02-20 15:53 | Emergency (ER) | payer MEDICARE, SELFPAY ==
--- NOTE | ~2024-02-20 | XR_ITS ---
EXAMINATION: XR CHEST CLINICAL INFORMATION: Shortness of breath COMPARISON: Chest radiograph dated 02/17/2024 TECHNIQUE: 2 views of the chest were obtained. FINDINGS: No significant abnormality is noted involving the heart, lungs, mediastinum, bony thorax or soft tissues. XR/XR chest 2V IMPRESSION: Unremarkable examination. Electronically signed by: Faviola Stephens MD 02/20/2024 04:44 PM EDT RP
--- NOTE | 2024-02-20 15:55 | ED.GENADULT ---
HPI - General Adult General Chief complaint: General Medical Stated complaint: dizzy, sob, Time Seen by Provider: 02/21/24 06:36 Source: patient, family () and event executive (macanese) Mode of arrival: ambulatory Limitations: language barrier (macanese speaking) History of Present Illness ED Provider: RENAY FUENTES PA-C HPI narrative: 78-year-old Mongolian-speaking female with pmhx significant for asthma, DM, alzheimer's dementia, diastolic HF, HTN, PVD, CKD, asthma/ COPD, TONY, gerd presents to the ED today for evaluation of shortness of breath and chest discomfort (no pain) x1.5 weeks. SOB is constant, not exacerbated with exertion. Cannot localize chest discomfort. No radiation. Using her albuterol inhaler with minimal relief. Admits she was evaluated by her house furnishings supervisor for this one week ago and has a stress test scheduled for 03/06/24. States her symptoms have persisted since appointment, prompting her to come to ED for evaluation. Denies fever, chills, chest pain, wheezing, LLOYD, Triage note states patient reporting dizziness, N/V, and shoulder/ neck pain. On my questioning, patient denies N/V and shoulder/ neck pain. She tells me she has been dizzy x7 years with unremarkable head imaging in the past. Her dizziness is unchanged from previous and she tells me she is not concerned about this at present. human services care specialist utilized throughout visit to communicate with patient. Related Data Home Medications ?Medication ?Instructions ?Recorded ?Confirmed albuterol sulfate 90 mcg/actuation 2 puff inhalation Q4H PRN wheezing 10/15/22 02/01/24 aerosol inhaler (Proventil HFA) aspirin 81 mg tablet,delayed 81 mg PO QAM 10/15/22 02/01/24 release dlhbkphena-dafrkbswaldjo-mdciucse 1 tab PO Q6H PRN headache 10/15/22 02/01/24 50 mg-325 mg-40 mg tablet calcium carbonate 600 mg PO BID 10/15/22 02/01/24 cyclobenzaprine 10 mg tablet 10 mg PO BEDTIME 10/15/22 02/01/24 famotidine 40 mg tablet 40 mg PO BEDTIME 10/15/22 02/01/24 metformin 500 mg tablet 500 mg PO TID 10/15/22 02/01/24 montelukast 10 mg tablet 10 mg PO QAM 10/15/22 02/01/24 multivitamin 1 tab PO QAM 10/15/22 02/01/24 rosuvastatin 20 mg tablet 20 mg PO QAM 10/15/22 02/01/24 sucralfate 100 mg/mL oral 10 ml PO Q6H 10/15/22 02/01/24 suspension (Carafate) losartan 25 mg tablet 25 mg PO QAM 11/16/22 02/01/24 venlafaxine 37.5 mg 37.5 mg PO DAILY 02/26/23 02/01/24 capsule,extended release 24 hr diclofenac sodium 1 % topical gel topical 03/03/23 02/01/24 quetiapine 25 mg tablet 25 mg PO BEDTIME 03/03/23 02/01/24 gabapentin 300 mg capsule 300 mg PO TID 07/29/23 02/01/24 celecoxib 100 mg capsule 100 mg PO BID 11/24/23 02/01/24 memantine 5 mg tablet 5 mg PO BID 11/24/23 02/01/24 oxycodone-acetaminophen 5 mg-325 tab PO 11/24/23 02/01/24 mg tablet tramadol 50 mg tablet 50 mg PO BID PRN 11/24/23 02/01/24 Previous Rx's ?Medication ?Instructions ?Recorded omeprazole 20 mg capsule,delayed 20 mg PO DAILY 4 weeks #28 caps 02/26/23 release benzonatate 100 mg capsule 100 mg PO BID PRN cough #30 caps 06/23/23 levalbuterol HCl 1.25 mg/3 mL 1.25 mg (3 mL) inhalation Q4-6H 06/23/23 solution for nebulization PRN shortness of breath or wheezing #90 mL amitriptyline 25 mg tablet 25 mg PO BEDTIME 30 days #30 tabs 07/21/23 cholecalciferol (vitamin D3) 50 50 mcg PO DAILY #90 caps 08/31/23 mcg (2,000 unit) capsule (Vitamin D3) fluticasone fur. 200 mcg-umeclid 1 inh inhalation DAILY #60 ea 09/29/23 62.5 mcg-vilant 25 mcg inhalat.powder (Trelegy Ellipta) estradiol 0.01% (0.1 mg/gram) See Rx Instructions vaginal 3XW 30 12/14/23 vaginal cream days #42.5 grams tamsulosin 0.4 mg capsule (Flomax) 0.4 mg PO BEDTIME For urination 01/26/24 #30 caps prednisone 20 mg tablet 20 mg PO DAILY 4 days #4 tabs 02/21/24 Allergies Allergy/AdvReac Type Severity Reaction Status Date / Time pregabalin [From Lyrica] Allergy Intermediate Rash Verified 02/20/24 15:58 Review of Systems Review of Systems: Constitutional: No fever, chills, fatigue, night sweats, weight changes ENT/Mouth: No ear pain, hearing loss, nasal congestion, sinus pain, rhinorrhea, sore throat Eyes: No eye pain, swelling, redness, vision changes, discharge Cardio: No chest pain, palpitations, LLOYD, orthopnea, peripheral edema, +chest discomfort Pulm: No cough, sputum, wheezing, dyspnea, hemoptysis, +SOB GI: No nausea, vomiting, hematemesis, abdominal pain, diarrhea, constipation, hematochezia, melena : No irregular bleeding, dysuria, frequency, urgency, hesitancy, hematuria, flank pain, urinary flow changes, urinary incontinence or retention MSK: No back pain, neck pain, joint pain, myalgias Skin: No lesions, rashes Neuro: No weakness, numbness, paresthesias, LOC, dizziness, headache Psych: No anxiety/panic, depression, SI/HI, AH/VH All other systems reviewed and are negative. [facility] Past Medical History Attestation statement: The following information was validated with the patient. Source: old records reviewed and nursing notes reviewed Medical History Atherosclerotic cardiovascular disease PVD (peripheral vascular disease) Breast nodule Urinary incontinence Osteoporosis Dementia in Alzheimer's disease Chronic diastolic (congestive) heart failure Hypertension Vitamin D deficiency Carpal tunnel syndrome Cervical disc disorder CKD (chronic kidney disease), stage II TONY (generalized anxiety disorder) Vertigo CAD (coronary artery disease) GERD (gastroesophageal reflux disease) Migraine Diabetes mellitus Asthma Surgical History Hx of cardiac catheterization History of hernia repair History of left inguinal hernia repair History of right inguinal hernia repair History of cholecystectomy Hx of colonoscopy History of esophagogastroduodenoscopy (EGD) Family History Family History Mother Heart problem Arthritis Social History Social History Alcohol intake: never Patient Tobacco Use Status: Never used Tobacco Advance Directives: No Advance Directives Information Provided: No Do you have a plan to hurt others: No Plan Physical Exam ED Vital Signs: Vital Signs - 24 hr 02/20/24 15:56 02/20/24 20:56 02/21/24 05:06 Temperature 98 F 98.3 F 98.1 F Pulse Rate 87 78 64 Respiratory Rate 19 19 18 Blood Pressure 140/86 H 148/77 H 153/86 H Pulse Oximetry 100 99 97 Oxygen Delivery Method Room Air Room Air Room Air 02/21/24 08:33 Temperature 98.1 F Pulse Rate 67 Respiratory Rate 18 Blood Pressure 138/78 Pulse Oximetry 98 Oxygen Delivery Method Room Air BMI result Body Mass Index 25.2 Patient hypertensive to 153/86, vitals otherwise WNL. General: Well appearing, in no acute distress. Skin: Warm, dry, intact. No rashes or lesions. Head: Normocephalic, atraumatic. EENT: Hearing is intact b/l. Conjunctiva clear. PERRLA. Moist mucous membranes.? Neck: Supple without LAD. Cardiac: Chest wall symmetric. RRR. No MRG. No JVD. Lungs: Normal respiratory effort without accessory muscle use. CTA bilaterally. No rales, rhonchi, or wheezes.? Abdomen: Soft, non-tender, non-distended Back: No midline spinous or paraspinal tenderness. No step off deformity. Ext: Upper and lower extremities atraumatic, without tenderness, deformity, swelling or erythema. Full ROM throughout. Neuro: AOx3. Normal speech. Ambulating with steady gait. Psych: Appropriate mood and affect. Responds appropriately to questions. Course Course Course Narrative: RME performed by Angela Amador PA-C. Patient is a 78 year old assigned female at presenting to the emergency department with shortness of breath. Patient states her breathing has gotten significantly worse over the last week. Detailed physical exam and review of systems are deferred to the stock taker. EKG, labs, imaging, and swabs ordered. Patient placed back in the waiting room pending room availability and results. Reevaluation(s) Reevaluation #1: 0700 -- CBC without leukocytosis or left shift. No anemia. h&h stable. chemistry without acute electrolyte abnormality require intervention. no dayami. random glucose 155. liver function wnl. troponin undetectabe x2. EKG showing normal sinus rhythm with a rate of 77 beats per minute, QT 380, QTC 430, no acute ischemic changes or ST elevations. patient tested negative for covid/flu/rsv. > on chart review, patient had cardiac holter monitor done (11/13/23) x3 days with NSR at a raet of 72 bpm with rare PVCs noted. Transthoracic echocardiogram on 11/13/23 showing normal LV systolic function with grade 1 diastolic dysfunction, normal cardiac valvular Dopplers, normal RV systolic pressure, no gross pericardial effusion. > IM solumedrol ordered with plan to re-evaluate 0846 -- BNP wnl. CHF unlikely. IM solumedrol given with improvement. 1002 -- UA negative for infection. Patient reports improvement in breathing with IM solumedrol. Lungs clear, I do not feel as though updraft treatment is necessary. Patient does not endorse chest pain. I feel it is reasonable to discharge patient home at this time with cardiology follow up as she currently has stress test scheduled this month. Patient has remained stable throughout ED visit today. Discussed worrisome signs and symptoms and when to return to the ED. All questions answered at this time. Patient is agreeable with disposition and stable for discharge. Medications Administered Discontinued Medications Generic Name Dose Route Start Last Admin Trade Name Freq PRN Reason Stop Dose Admin Methylprednisolone Sodium Succinate 60 mg 02/21/24 07:07 02/21/24 08:29 Methylprednisolone Sod Succ 125 Mg/2 Ml Vial IM 02/21/24 07:08 60 mg ONCE ONE Administration Medical Decision Making Medical Decision Making MDM Narrative: 78-year-old Mongolian-speaking female with pmhx significant for asthma, DM, alzheimer's dementia, diastolic HF, HTN, PVD, CKD, asthma/ COPD, TONY, GERD presents to the ED today for evaluation of shortness of breath and chest discomfort (no pain) x1.5 weeks. This patient presents with chest pain, with symptoms suggestive of noncardiac chest dicomfort and shortness of breath most consistent with asthma/ copd. ? History without high risk features (not substernal, no exertional component, not relieved with rest).? Minimal CAD risk factors including normal echo and holter monitor eval 1 year ago. VSS. Not hypoxic. Exam without evidence of volume overload. No increased effort of breathing. No tripoding. Lungs clear. RRR. EKG without signs of active ischemia. Given the timing of pain to ED presentation, delta troponin to evaluate for NSTEMI. Presentation not consistent with acute PE, pneumothorax, thoracic aortic dissection, cardiac effusion or tamponade. Plan: labs, troponin, EKG, CXR, solumedrol, pain control, reassessment Differential Diagnosis Differential Diagnoses: The differential diagnosis associated with the presentation includes as above. Admission/Observation Consideration of admission/observation: Escalation of care including admission/observation considered Admission considered on presentation Lab Data MDM Lab Attestation statement: I reviewed the patient's lab results. as above. 02/20/24 16:08 02/20/24 16:08 Labs: Lab Results 02/20/24 02/20/24 02/21/24 Range/Units 16:08 21:24 05:11 WBC 5.7 (4.8-10.8) X10*3/uL RBC 3.99 L (4.20-5.50) X10*6/uL Hgb 12.6 (12.0-16.0) g/dl Hct 36.3 L (37.0-47.0) % MCV 91.0 (80.0-98.0) fL MCH 31.6 (27.0-33.0) pg MCHC 34.7 (31.0-35.0) g/dl RDW 13.2 (11.0-16.0) % Plt Count 184 (160-400) X10*3/uL MPV 10.4 (9.4-12.3) fL Immature Gran % (Auto) 0.2 (0.0-0.4) % Neut % (Auto) 67.5 (45-73) % Lymph % (Auto) 21.9 (20-40) % Caroline % (Auto) 8.1 (2-11) % Eos % (Auto) 1.8 (0-4) % Baso % (Auto) 0.5 (0-2) % Lymph # (Auto) 1.2 (1.2-4.9) X10*3/uL Caroline # (Auto) 0.5 (0.1-1.2) X10*3/uL Eos # (Auto) 0.1 (0.0-0.4) X10*3/uL Baso # (Auto) 0.0 (0.0-0.2) X10*3/uL Abs Immat Gran (auto) 0.01 (0.00-0.03) X10*3/uL Absolute Neuts (auto) 3.8 (2.0-8.3) x10*3/uL Absolute Nucleated RBC 0.000 (0.0-0.012) X10*3/uL Nucleated RBC % (auto) 0.0 (0.0-0.2) /100WBC Sodium 142 (135-145) mmol/L Potassium 4.0 (3.3-5.1) mmol/L Chloride 106 (96-108) mmol/L Carbon Dioxide 26 (22-29) mmol/L Anion Gap 14 (12-20) BUN 12 (9-16) mg/dL Creatinine 0.94 (0.5-1.4) mg/dL Estim Creat Clear Calc 37.8 Estimated GFR 58 POC Glucose 115 (60-115) mg/dL Random Glucose 155 H (60-115) mg/dL Calcium 10.2 (8.4-10.2) mg/dL Magnesium 1.9 (1.6-2.6) mg/dL Total Bilirubin 0.3 (0.0-1.0) mg/dL AST 27 (5-31) U/L ALT 26 (0-31) U/L Alkaline Phosphatase 69 (39-117) U/L Troponin I High Sens < 2.7 < 2.7 (<3.5-17.0) ng/L B-Natriuretic Peptide (<100) pg/mL Total Protein 7.6 (6.5-8.0) g/dL Albumin 4.2 (3.5-5.0) g/dL Urine Color Urine Appearance Urine pH (5.0-9.0) Ur Specific [place] (1.005-1.025) Urine Protein (Neg-Trace) mg/dL Urine Glucose (UA) (Negative) mg/dL Urine Ketones (Negative) mg/dL Urine Blood (Negative) Urine Nitrite (Negative) Ur Leukocyte Esterase (Negative) Urine RBC (0-2) /HPF Urine WBC (0-5) /HPF Ur Squamous Epith Cells (0-2) /HPF Urine Bacteria (None Seen) Hyaline Casts (0-2) /LPF Influenza Type A (PCR) NEGATIVE (Negative) Influenza Type B (PCR) NEGATIVE (Negative) RSV RNA Qual (PCR) NEGATIVE (Negative) SARS-CoV-2 RNA (RT-PCR) NEGATIVE (Negative) 02/21/24 02/21/24 Range/Units 07:49 09:41 WBC (4.8-10.8) X10*3/uL RBC (4.20-5.50) X10*6/uL Hgb (12.0-16.0) g/dl Hct (37.0-47.0) % MCV (80.0-98.0) fL MCH (27.0-33.0) pg MCHC (31.0-35.0) g/dl RDW (11.0-16.0) % Plt Count (160-400) X10*3/uL MPV (9.4-12.3) fL Immature Gran % (Auto) (0.0-0.4) % Neut % (Auto) (45-73) % Lymph % (Auto) (20-40) % Caroline % (Auto) (2-11) % Eos % (Auto) (0-4) % Baso % (Auto) (0-2) % Lymph # (Auto) (1.2-4.9) X10*3/uL Caroline # (Auto) (0.1-1.2) X10*3/uL Eos # (Auto) (0.0-0.4) X10*3/uL Baso # (Auto) (0.0-0.2) X10*3/uL Abs Immat Gran (auto) (0.00-0.03) X10*3/uL Absolute Neuts (auto) (2.0-8.3) x10*3/uL Absolute Nucleated RBC (0.0-0.012) X10*3/uL Nucleated RBC % (auto) (0.0-0.2) /100WBC Sodium (135-145) mmol/L Potassium (3.3-5.1) mmol/L Chloride (96-108) mmol/L Carbon Dioxide (22-29) mmol/L Anion Gap (12-20) BUN (9-16) mg/dL Creatinine (0.5-1.4) mg/dL Estim Creat Clear Calc Estimated GFR POC Glucose (60-115) mg/dL Random Glucose (60-115) mg/dL Calcium (8.4-10.2) mg/dL Magnesium (1.6-2.6) mg/dL Total Bilirubin (0.0-1.0) mg/dL AST (5-31) U/L ALT (0-31) U/L Alkaline Phosphatase (39-117) U/L Troponin I High Sens (<3.5-17.0) ng/L B-Natriuretic Peptide 24 (<100) pg/mL Total Protein (6.5-8.0) g/dL Albumin (3.5-5.0) g/dL Urine Color Yellow Urine Appearance Clear Urine pH 7.0 (5.0-9.0) Ur Specific [place] <= 1.005 (1.005-1.025) Urine Protein Negative (Neg-Trace) mg/dL Urine Glucose (UA) Negative (Negative) mg/dL Urine Ketones Negative (Negative) mg/dL Urine Blood Small (1+) H (Negative) Urine Nitrite Negative (Negative) Ur Leukocyte Esterase Negative (Negative) Urine RBC 6-10 H (0-2) /HPF Urine WBC 0-5 (0-5) /HPF Ur Squamous Epith Cells 0-2 (0-2) /HPF Urine Bacteria None Seen (None Seen) Hyaline Casts 0-2 (0-2) /LPF Influenza Type A (PCR) (Negative) Influenza Type B (PCR) (Negative) RSV RNA Qual (PCR) (Negative) SARS-CoV-2 RNA (RT-PCR) (Negative) Independent Interpretation I performed an independent interpretation of an: EKG and Plain X-Ray Interpretation: Chest x-ray without infiltrate or consolidation, agree with radiologist's interpretation. EKG showing normal sinus rhythm with a rate of 77 beats per minute, QT 380, QTC 430, no acute ischemic changes or ST elevations. Radiology Impression Discussion of test interpretation with radiology: I have reviewed the radiologist's reading. Radiologist Impression: EXAMINATION: XR CHEST CLINICAL INFORMATION: Shortness of breath COMPARISON: Chest radiograph dated 02/17/2024 TECHNIQUE: 2 views of the chest were obtained. FINDINGS: No significant abnormality is noted involving the heart, lungs, mediastinum, bony thorax or soft tissues. XR/XR chest 2V IMPRESSION: Unremarkable examination. Electronically signed by: Faviola Stephens MD 02/20/2024 04:44 PM EDT RP Chronic Conditions Patient?s care impacted by: Other (CAD, PVD, heart failure) Social Determinants Patient?s care significantly limited by Social Determinants of Health including: Other Social Determinant of Health Critical Care Time Critical Care Time Critical Care Time: No Discharge Plan Discharge Clinical Impression: Shortness of breath, Chest discomfort Patient Disposition: Home, Self-Care Instructions: COPD (Chronic Obstructive Pulmonary Disease) (ED) Additional Instructions: You were evaluated in the Emergency Department today for chest discomfort and shortness of breath. Your evaluation has shown no signs of medical conditions requiring emergent intervention at this time, however I recommend that you follow up with your primary care provider or your house furnishings supervisor as soon as possible for further testing as an outpatient. Keep your appointment for this month. Please call them to make an appointment, they will not call you. Return to the Emergency Department if you experience worsening or uncontrolled chest pain, shortness of breath, light headedness, feeling faint, nausea, vomiting, or any other concerning symptoms. Prescriptions: New prednisone 20 mg tablet 20 mg PO DAILY 4 Days Qty: 4 0RF No Action cholecalciferol (vitamin D3) [Vitamin D3] 50 mcg (2,000 unit) capsule 50 mcg PO DAILY Qty: 90 0RF losartan 25 mg tablet 25 mg PO QAM quetiapine 25 mg tablet 25 mg PO BEDTIME diclofenac sodium 1 % gel topical amitriptyline 25 mg tablet 25 mg PO BEDTIME 30 Days Qty: 30 2RF benzonatate 100 mg capsule 100 mg PO BID PRN (Reason: cough) Qty: 30 0RF levalbuterol HCl 1.25 mg/3 mL solution for nebulization 1.25 mg inhalation Q4-6H PRN (Reason: shortness of breath or wheezing) Qty: 90 3RF memantine 5 mg tablet 5 mg PO BID celecoxib 100 mg capsule 100 mg PO BID tramadol 50 mg tablet 50 mg PO BID PRN oxycodone-acetaminophen 5-325 mg tablet PO estradiol 0.01 % (0.1 mg/gram) cream See Rx Instructions vaginal 3XW 30 Days Qty: 42.5 3RF Rx Instructions: vaginally 3 times a week; pea sized amount to urethra 3 times a week rosuvastatin 20 mg tablet 20 mg PO QAM albuterol sulfate [Proventil HFA] 90 mcg/actuation HFA aerosol inhaler 2 puff inhalation Q4H PRN (Reason: wheezing) montelukast 10 mg tablet 10 mg PO QAM calcium carbonate 600 mg calcium (1,500 mg) tablet 600 mg PO BID rdmruhfwea-ommlimnnmbzqh-hktm 50-325-40 mg tablet 1 tab PO Q6H PRN (Reason: headache) aspirin 81 mg tablet,delayed release (DR/EC) 81 mg PO QAM famotidine 40 mg tablet 40 mg PO BEDTIME sucralfate [Carafate] 100 mg/mL suspension 10 ml PO Q6H metformin 500 mg tablet 500 mg PO TID cyclobenzaprine 10 mg tablet 10 mg PO BEDTIME multivitamin Tablet 1 tab PO QAM venlafaxine 37.5 mg capsule,extended release 24hr 37.5 mg PO DAILY omeprazole 20 mg capsule,delayed release(DR/EC) 20 mg PO DAILY 28 Days Qty: 28 0RF gabapentin 300 mg capsule 300 mg PO TID Trelegy Ellipta 200-62.5-25 mcg blister with device 1 inh inhalation DAILY Qty: 60 6RF tamsulosin [Flomax] 0.4 mg capsule 0.4 mg PO BEDTIME Qty: 30 3RF Referrals: [facility] [Provider Group] Edwige Headley MD [Primary Care Provider] - Print Language: Mongolian
[2024-02-20 15:56] VITALS: BP 140/86; PULSE 87; RESP 19; TEMP 36.6; O2SAT 100; BMI 25.2
--- NOTE | 2024-02-20 15:56 | ECG_ITS ---
Test Reason : CHEST PAIN Blood Pressure : / mmHG Vent. Rate : 077 BPM Atrial Rate : 077 BPM P-R Int : 162 ms QRS Dur : 076 ms QT Int : 380 ms P-R-T Axes : 035 -38 057 degrees QTc Int : 430 ms Normal sinus rhythm Left axis deviation Possible Anteroseptal infarct , age undetermined Abnormal ECG No previous ECGs available Referred By: Angela Amador Electronically Signed By:ALEKSANDAR OLIVERA
[2024-02-20 16:14] LABS: MANUAL DIFF FLAG NO
[2024-02-20 16:15] LABS: Basophils Percent Auto 0.5 % (0-2); Eosinophils Absolute Auto 0.1 X10*3/uL (0.0-0.4); Eosinophils Percent Auto 1.8 % (0-4); Hematocrit 36.3 % (37.0-47.0); Hemoglobin 12.6 g/dl (12.0-16.0); Imm Gran Abs Auto 0.01 X10*3/uL (0.00-0.03); Imm Gran Pct Auto 0.2 % (0.0-0.4); Lymphocytes Absolute Auto 1.2 X10*3/uL (1.2-4.9); Lymphocytes Percent Auto 21.9 % (20-40); Mean Corpuscular HGB Conc 34.7 g/dl (31.0-35.0); Mean Corpuscular Hemoglobin 31.6 pg (27.0-33.0); Mean Platelet Volume 10.4 fL (9.4-12.3); Monocytes Absolute Auto 0.5 X10*3/uL (0.1-1.2); Monocytes Percent Auto 8.1 % (2-11); Neutrophils Absolute Auto 3.8 x10*3/uL (2.0-8.3); Neutrophils Percent Auto 67.5 % (45-73); Platelet Count 184 X10*3/uL (160-400); Red Blood Count 3.99 X10*6/uL (4.20-5.50); Red Cell Distribution Width 13.2 % (11.0-16.0); White Blood Count 5.7 X10*3/uL (4.8-10.8)
[2024-02-20 16:32] LABS: Alanine Aminotransferase 26 U/L (0-31); Albumin Level 4.2 g/dL (3.5-5.0); Alkaline Phosphatase 69 U/L (39-117); Anion Gap 14 (12-20); Aspartate Amino Transferase 27 U/L (5-31); Bilirubin Total 0.3 mg/dL (0.0-1.0); Blood Urea Nitrogen 12 mg/dL (9-16); Calcium 10.2 mg/dL (8.4-10.2); Carbon Dioxide 26 mmol/L (22-29); Chloride 106 mmol/L (96-108); Creatinine Clr Calc Pharmacy 37.8; Estimated Glomerular Filt Rate 58; Glucose Random 155 mg/dL (60-115); Magnesium 1.9 mg/dL (1.6-2.6); Sodium 142 mmol/L (135-145); Total Protein 7.6 g/dL (6.5-8.0)
[2024-02-20 16:40] LABS: Troponin-I High Sensitivity < 2.7 ng/L (<3.5-17.0)
[2024-02-20 16:52] LABS: Influenza A PCR NEGATIVE (Negative); Influenza B PCR NEGATIVE (Negative); Resp Syncy Virus RNA Qual PCR NEGATIVE (Negative); SARS COV2 PCR INHOUSE NEGATIVE (Negative)
[2024-02-20 20:56] VITALS: BP 148/77; PULSE 78; RESP 19; TEMP 36.8; O2SAT 99
[2024-02-20 21:50] LABS: Troponin-I High Sensitivity < 2.7 ng/L (<3.5-17.0)
[2024-02-21 05:06] VITALS: BP 153/86; PULSE 64; RESP 18; TEMP 36.7; O2SAT 97
[2024-02-21 05:15] LABS: Glucose, Whole Blood 115 mg/dL (60-115)
[2024-02-21 08:16] LABS: B Type Natriuretic Peptide 24 pg/mL (<100)
[2024-02-21] MEDS: methylPREDNISolone Sod Succ 125 MG/2 ML VIAL 60 MG IM (08:29)
[2024-02-21 08:33] VITALS: BP 138/78; PULSE 67; RESP 18; TEMP 36.7; O2SAT 98
[2024-02-21 09:47] LABS: Appearance Urine Clear; Color Urine Yellow; Glucose Urine UA Negative (Negative); Leukocyte Esterase Urine Negative (Negative); Nitrite Urine Negative (Negative); Specific Gravity - Urine <= 1.005 (1.005-1.025); UMIC TRIGGER UACC YES; Urine Blood Small (1+) (Negative); Urine Ketones Negative (Negative); Urine Protein Negative (Neg-Trace)
[2024-02-21 09:52] LABS: Bacteria Urine None Seen (None Seen); Hyaline Casts Urine 0-2 /LPF (0-2); Squamous Epithelial Cell Urine 0-2 /HPF (0-2); WBC Urine 0-5 /HPF (0-5)
[2024-02-21 10:32] VITALS: BP 132/77; PULSE 71; RESP 18; TEMP 36.6; O2SAT 98
== END 2024-02-21 10:33 | disposition home or self-care (01) ==
PROVIDERS: Physician Assistant Medical; Emergency Provider Emergency Medicine; PCP Family Medicine
DX: R07.89 Other chest pain (principal); R06.02 Shortness of breath; R42 Dizziness and giddiness; J44.9 Chronic obstructive pulmonary disease, unspecified; E11.9 Type 2 diabetes mellitus without complications; J45.909 Unspecified asthma, uncomplicated; R11.2 Nausea with vomiting, unspecified; Z79.899 Other long term (current) drug therapy; Z03.818 Encounter for observation for suspected exposure to other biological agents ruled out; Z79.84 Long term (current) use of oral hypoglycemic drugs
CPT/HCPCS: 0241U; 36415; 71046; 80053; 81001; 82947; 83735; 83880; 84484; 85025; 93005; 96372; 99284; J2919

== ENCOUNTER 2024-02-23 15:51 | Outpatient (AMB) | payer MEDICARE, SELFPAY ==
--- NOTE | 2024-02-23 15:54 | A.OFFVIS_ITS ---
Vital Signs 02/23/24 15:59 Height 5 ft Weight 122 lb 9.232 oz BMI 23.9 BP 90/60 Blood Pressure Location Rt brachial Position Sitting Pulse 71 Pulse Source Pulse Oximeter Pulse Oximetry (%) 97 Oxygen Delivery Method Room Air Intake Visit Reasons: Osteoporosis Intake Note: Patient presents for Osteoporosis. Electrical Worker Required: Yes Electrical Worker Language: Postal Inspector Services: Electrical Worker Present Electrical Worker Name: Julissa #[id number] Information Interpreted: non-clinical & clinical Allergies pregabalin [From Lyrica] Allergy (Intermediate, Verified 02/23/24 15:58) Rash Medication List - Last Reconciled 02/23/24 by Sandrine South MD albuterol sulfate 90 mcg/actuation (Proventil HFA) 2 puffs inhalation Q4H PRN amitriptyline 25 mg PO BEDTIME 30 days aspirin 81 mg PO QAM benzonatate 100 mg PO BID PRN igbrixfykd-yjlmqopdsbdth-engt 50-325-40 mg 1 tab PO Q6H PRN calcium carbonate 600 mg PO BID celecoxib 100 mg PO BID cholecalciferol (vitamin D3) (Vitamin D3) 50 mcg PO DAILY cyclobenzaprine 10 mg PO BEDTIME diclofenac sodium 1% topical estradiol 0.01%(0.1mg/gram) vaginally 3 times a week; pea sized amount to u rethra 3 times a week 30 days famotidine 40 mg PO BEDTIME fousbjgqkkg-aokevwnre-zmsuaqqt 200-62.5-25 mcg (Trelegy Ellipta) 1 inh inhalation DAILY gabapentin 300 mg PO TID levalbuterol HCl 1.25 mg (3 mL) inhalation Q4-6H PRN losartan 25 mg PO QAM memantine 5 mg PO BID metformin 500 mg PO TID montelukast 10 mg PO QAM multivitamin 1 tab PO QAM omeprazole 20 mg PO DAILY 4 weeks oxycodone-acetaminophen 5-325 mg tabs PO prednisone 20 mg PO DAILY 4 days quetiapine 25 mg PO BEDTIME rosuvastatin 20 mg PO QAM sucralfate (Carafate) 10 mL PO Q6H tamsulosin (Flomax) 0.4 mg PO BEDTIME tramadol 50 mg PO BID PRN venlafaxine ER 37.5 mg PO DAILY HPI Comments Details: 78-year-old female with fibromyalgia and osteoporosis returns for follow-up. States that she recently had chest discomfort and went to the emergency room, she was prescribed prednisone with improvement, she then followed up with Pulmonary recently and had blood work done. She states that she continues to have diffuse pain everywhere. Initial history: This is a 77-year-old female who presents for evaluation of diffuse pain. Patient states that she used to see a manager credit back in [place] and and she was on Boniva for more than 10 years. She stated that she had her ovaries removed for a benign cause at age 46. States that she had a sacral fracture 20 years ago after she fell on the stairs. Boniva was discontinued 1-2 years ago. Who about a week ago patient went to urgent care due to abrupt onset of right index finger flexion contracture and pain. She was referred to Hand surgery. Right hand x-ray only showed degenerative changes. Today she is complaining of the same pain in her right hand. She also complains of lower back pain. [facility] Medical History Atherosclerotic cardiovascular disease PVD (peripheral vascular disease) Breast nodule Urinary incontinence Osteoporosis Dementia in Alzheimer's disease Chronic diastolic (congestive) heart failure Hypertension Vitamin D deficiency Carpal tunnel syndrome Cervical disc disorder CKD (chronic kidney disease), stage II TONY (generalized anxiety disorder) Vertigo CAD (coronary artery disease) GERD (gastroesophageal reflux disease) Migraine Diabetes mellitus Asthma Surgical History H/O hand surgery Hx of cardiac catheterization History of hernia repair History of left inguinal hernia repair History of right inguinal hernia repair History of cholecystectomy Hx of colonoscopy History of esophagogastroduodenoscopy (EGD) Family History Mother Heart problem Arthritis Social History Alcohol intake: never Patient Tobacco Use Status: Never used Tobacco Female Reproductive History Menstrual Total pregnancies: 2 Review of Systems Musc Reports arthralgias and Reports stiffness Psych Reports anxiety and Reports depression Physical Exam Vital Signs: Last Vital Signs Pulse 71 02/23/24 15:59 BP 90/60 02/23/24 15:59 Pulse Ox 97 02/23/24 15:59 Oxygen Delivery Method Room Air 02/23/24 15:59 BMI result Body Mass Index 23.9 Const General: cooperative, healthy appearing and comfortable Nutritional Appearance: average body habitus Orientation/consciousness: patient oriented x3 Limitations: ambulation with walker HEENT Head: Yes normocephalic and Yes atraumatic Mouth: moist mucous membranes Resp Effort & Inspection: normal respiratory effort and able to speak in complete sentences Neuro General: patient oriented x3 Extrem Other: osteoarthritic changes of both hands with no active synovitis. Results Reviewed Results Reviewed: DEXA 03/2021 Impression L-spine T-score-1.9? Left femoral neck T-score -2.7? Total left hip T-score -2.0 DEXA 03/2023 LEFT FEMUR, NECK: BMD 0.684 g/cm2, Z-score -0.4, T-score -2.5, osteoporosis. LEFT FEMUR, TOTAL: BMD 0.731 g/cm2, Z-score -0.2, T-score -2.2, osteopenia. AP SPINE L1-L4: BMD 0.909 g/cm2, Z-score -0.3, T-score -2.3, osteopenia. Assessment & Plan Assessment & Plan (1) Osteoporosis: Code(s): M81.0 - Age-related osteoporosis without current pathological fracture Category: Medical Qualifiers: Osteoporosis type: age-related Presence of current pathological fracture: without current pathological fracture Qualified Code(s): M81.0 - Age- related osteoporosis without current pathological fracture Plan: This is a 78-year-old female with osteoporosis who presents for follow-up. Per patient her ovaries were removed at age 46 due to a benign cause. Stated that she had a sacral fracture 20 years ago when she fell down the stairs. She took Boniva for about 10 years and stopped it 2 years ago. She does not recall ever being on any other medicines for osteoporosis. DEXA scan 03/2023 compared to 03/2021 is relatively stable. Can continue with Boniva holiday. Repeat DEXA 03/2025 Follow-up after repeat DEXA is completed (2) Fibromyalgia, primary: Code(s): M79.7 - Fibromyalgia Category: Medical Plan: Follow-up with PCP On gabapentin and tramadol Plan I spent 26 minutes reviewing patient's chart, evaluating patient, ordering diagnostic workup, counseling patient & documenting in the chart Orders: Orders XR DEXA axial skeleton 02/20/25 M81.0 - Age-related osteoporosis without current pathological fracture Coding Level of Care Code Est Pt Level 4 (08018) Diagnoses Age-related osteoporosis without current pathological fracture M81.0 Osteoporosis type: age-related Presence of current pathological fracture: without current pathological fracture Fibromyalgia, primary M79.7
[2024-02-23 15:59] VITALS: BP 90/60; PULSE 71; O2SAT 97; BMI 23.9
== END 2024-02-23 16:35 | disposition home or self-care (01) ==
PROVIDERS: PCP Family Medicine; Visit Provider Student in an Organized Health Care Education/Training Program
DX: M81.0 Age-related osteoporosis without current pathological fracture (principal); M79.7 Fibromyalgia
CPT/HCPCS: 99214

== ENCOUNTER → 2024-02-23 15:51 | Outpatient (BNVA) | payer MEDICARE, SELFPAY | PROVIDERS: PCP Family Medicine; Visit Provider Student in an Organized Health Care Education/Training Program | DX: M81.0 Age-related osteoporosis without current pathological fracture (principal); M79.7 Fibromyalgia; E55.9 Vitamin D deficiency, unspecified | CPT/HCPCS: 99212 ==

== ENCOUNTER 2024-03-01 13:22 | Outpatient (AMB) | payer MEDICARE, SELFPAY ==
[2024-03-01 13:37] VITALS: BP 116/70; PULSE 81; O2SAT 97; BMI 24.1
--- NOTE | 2024-03-01 13:37 | A.OFFVIS_ITS ---
Vital Signs 03/01/24 13:37 Height 5 ft Weight 123 lb 6 oz BMI 24.1 BP 116/70 Blood Pressure Location Rt brachial Position Sitting Pulse 81 Pulse Source Pulse Oximeter Pulse Oximetry (%) 97 Oxygen Delivery Method Room Air Intake Visit Reasons: f/u Washtub Worker Helper Required: Yes Washtub Worker Helper Language: Precision Lens Centerer And Edger Name: [id number] Rani Allergies pregabalin [From Lyrica] Allergy (Intermediate, Verified 03/01/24 13:47) Rash HPI HPI f/u: Details: Ed is a pleasant 78 year old, never smoker, with underlying childhood asthma, asthma COPD overlap syndrome, GERD, osteoporosis and diastolic dysfunction. She reports moderate control with Trelegy, using levalbuterol neb infrequently. She continues to report dyspnea on exertion and labored breathing over the last few weeks that has been mildly worsening. She denies any coughing or wheezing at this time. She is awaiting nuclear stress test ordered by cardiology to assess for any cardiac contribution to dyspnea. She reports on 02/24 she went to her PCP who prescribed doxycycline and prednisone for an excerbation. She reports minimal change since starting medication. She denies fever, chills or sick contacts. [facility], [facility] Medical History Atherosclerotic cardiovascular disease PVD (peripheral vascular disease) Breast nodule Urinary incontinence Osteoporosis Dementia in Alzheimer's disease Chronic diastolic (congestive) heart failure Hypertension Vitamin D deficiency Carpal tunnel syndrome Cervical disc disorder CKD (chronic kidney disease), stage II TONY (generalized anxiety disorder) Vertigo CAD (coronary artery disease) GERD (gastroesophageal reflux disease) Migraine Diabetes mellitus Asthma Surgical History H/O hand surgery Hx of cardiac catheterization History of hernia repair History of left inguinal hernia repair History of right inguinal hernia repair History of cholecystectomy Hx of colonoscopy History of esophagogastroduodenoscopy (EGD) Family History Mother Heart problem Arthritis Social History Alcohol intake: never Patient Tobacco Use Status: Never used Tobacco Review of Systems Const Denies chills, Denies excessive sweating, Denies fever(s), Denies headache(s) and Denies night sweats Eyes Denies dry eyes, Denies irritation and Denies itchy eyes ENT Reports Normal hearing present, Denies headache(s), Denies nasal congestion, Denies nasal discharge, Denies post nasal drip and Denies sore throat Card Denies chest pain, Denies chest pain at rest, Denies chest pain with activity, Denies claudication, Denies leg edema, Denies orthopnea and Denies paroxysmal nocturnal dyspnea Resp Denies chest congestion, Denies cough, Denies excessive phlegm production, Denies pain on inspiration, Denies pain with cough, Denies stridor and Denies wheezing Musc Denies myalgias Neuro Reports Normal hearing present and Denies headache(s) Endo Denies excessive sweating Dav/Lymph Denies lymphadenopathy Aller/Immun Denies itchy eyes, Denies seasonal rhinorrhea and Denies wheezing Physical Exam Vital Signs: Last Vital Signs Pulse 81 03/01/24 13:37 BP 116/70 03/01/24 13:37 Pulse Ox 97 03/01/24 13:37 Oxygen Delivery Method Room Air 03/01/24 13:37 BMI result Body Mass Index 24.1 Const General: cooperative, healthy appearing, no acute distress and alert Orientation/consciousness: patient oriented x3 Limitations: ambulation with walker HEENT Head: Yes normal to inspection, Yes normocephalic and Yes atraumatic Ears: hearing grossly normal bilaterally and external ears normal Eyes General: appearance normal, both eyes and all related structures Eyelids: Yes eyelids normal Sclerae: sclerae normal EOM: EOMs intact bilaterally Neck Neck: Yes normal visual inspection and Yes no lymphadenopathy Lymphatic: no lymphadenopathy noted Chest Chest palpation & inspection: normal inspection of the chest Resp Effort & Inspection: normal respiratory effort, able to speak in complete sentences, no audible wheezes, no stridor, not tachypneic, no tripod positioning and no use of accessory muscles Auscultation: diminished lung sounds Cardio Jugular venous distension: no JVD Rate: regular rate Rhythm: regular rhythm Skin Other: warm, dry General skin exam: no rashes or lesions noted Neuro General: patient oriented x3 Cranial nerves: Yes Normal hearing present Cognition (Neuro): normal cognition Extrem General: Yes normal to inspection, Yes capillary refill normal, Yes no clubbing, cyanosis or edema and Yes no pedal edema Psych Appearance: grossly normal and well kempt Speech and movement: Normal speech and movement present and Clear speech present Affect: normal affect Attitude: cooperative Thought process: Normal thought process present Thought content: Normal thought content present Insight: Good insight present (Psych) Judgement: Good judgement present (Psych) Assessment & Plan Assessment & Plan (1) Asthma-COPD overlap syndrome: Code(s): J44.89 - Other specified chronic obstructive pulmonary disease Category: Medical (2) Dyspnea: Code(s): R06.00 - Dyspnea, unspecified Category: Medical Plan Ed reports moderate control with Trelegy, now with more labored breathing at rest and more noticeable dyspnea on exertion. She is scheduled for a nuclear stress test. She is aware if symptoms worsen to seek emergent care. At this time she is currently on prednisone and doxycyline from PCP. Encouraged to use levalbuterol PRN, however unclear if this will be effective as there may be an underlying cardiac/anxiety component. However if symptoms persist, will consider repeat chest CT to assess for any underlying parenchymal condition contributing to symptoms. All questions were answered and patient is in agreement of plan. Will follow-up in 4-6 weeks or sooner if needed. Medications: Refilled zvqglcpkzzt-foxjwtsqj-vfiejhta 200-62.5-25 mcg (Trelegy Ellipta) 1 inh inhalation DAILY 60 ea 6RF J44.89 - Other specified chronic obstructive pulmonary disease levalbuterol HCl 1.25 mg (3 mL) inhalation Q4-6H PRN 90 mL 3RF shortness of breath or wheezing Coding Level of Care Code Est Pt Level 3 (69453) Diagnoses Asthma-COPD overlap syndrome J44.89 Dyspnea R06.00
== END 2024-03-01 14:21 | disposition home or self-care (01) ==
PROVIDERS: PCP Family Medicine; Visit Provider Nurse Practitioner Family
DX: J44.89 Other specified chronic obstructive pulmonary disease (principal); R06.00 Dyspnea, unspecified
CPT/HCPCS: 99213

== ENCOUNTER → 2024-03-01 13:22 | Outpatient (BNVA) | payer MEDICARE, SELFPAY | PROVIDERS: PCP Family Medicine; Visit Provider Nurse Practitioner Family | DX: J44.89 Other specified chronic obstructive pulmonary disease (principal); R06.00 Dyspnea, unspecified | CPT/HCPCS: 99212 ==

== ENCOUNTER → 2024-03-13 08:22 | Outpatient (REF) | payer MEDICARE, SELFPAY ==
--- NOTE | ~2024-03-13 | NM_ITS ---
Lexiscan Myocardial perfusion study Indication: Coronary artery disease Technique: The patient was brought in for a Lexiscan perfusion study on 03/13/2024 and was injected 0.4 mg of Lexiscan intravenously. Within a minute of this injection 25 mCi of sestamibi was given intravenously. Images were obtained using the SPECT gamma camera interlaced with the gating device. Images were obtained in supine position. Resting perfusion study was performed on 03/14/2024. Patient was administered 25 mCi of sestamibi intravenously at rest. Images were then obtained in supine position. Total DLP 108 mGy-cm. Images were processed with the software and compared side to side in short axis, horizontal long axis and vertical long axis views. Findings: Raw aquisition reviewed. Arms by the patient's side. The stress perfusion study showed decreased tracer uptake in the distal part of lateral wall. There is improvement with CT attenuation correction suggestive of soft tissue attenuation artifact. There is also adjacent subdiaphragmatic tracer uptake. The gated study shows normal LV systolic function with calculated LVEF of 65%. LV cavity is normal in size. The gated study shows normal wall thickening and contraction of segments. Resting study shows no significant perfusion defects. There is subdiaphragmatic tracer uptake. Gating at rest reveals normal wall motion with ejection fraction at 71%. The findings are consistent with reversible distal lateral defect that could be from diaphragmatic attenuation artifact. NM/NM cardiolite stress test Impression: 1. Myocardial perfusion imaging study shows probably normal myocardial perfusion. 2. Gated LVEF is 65% during stress and 71% during rest. 3. Transient ischemic dilatation not present. EKG component of the test reported separately. Electronically signed by: Juan Padilla MD 03/14/2024 04:13 PM EDT
--- NOTE | 2024-03-13 08:25 | CA_ITS ---
Acquisition Time: 2024-03-13 09:41:17 Total Exercise Time: 00:02:00 Test Indications: Dyspnea Medications: SEE H Protocol: LEXISCAN Max HR: 106 BPM 73% of Pred: 144 BPM Max BP: 108/064 mmHG Max Work Load: 1.0 METS Pharmacological stress test with Lexiscan injection, while sitting and kicking her legs, with report of increased chest tightness ( which was present at baseline) and had a vasovagal event with drop in heart rate and BP that was treated with 300cc IVNS, supine position, Aminophylline 75mg IVP 3 min post injection. She did have vomiting. No arrythmia, with nondiagnostic EKG for ischemia. She was recovered until her condition improved and was asymptomatic, 17 min 41 sec. She was allowed to leave the cardiology department in stable condition, no chest discomfort, IV access in place. Nuclear images pending. Test reviewed with Dr Padilla. EKG tracings removed with Dr Padilla. There are possible ST elevations seen on EKG at 7 min 15 sec of recovery. Artifact on that tracing is not excluded. Referred By: Cheli Sánchez Overread By: CHELI SÁNCHEZ
== END ==
LOC: HO.CARD 08:22
PROVIDERS: PCP Family Medicine; Visit Provider Nurse Practitioner Family
DX: R07.9 Chest pain, unspecified (principal); I25.10 Atherosclerotic heart disease of native coronary artery without angina pectoris; R06.02 Shortness of breath
CPT/HCPCS: 78452; 93017; A9500; J0280; J2785

== ENCOUNTER → 2024-03-13 08:25 | Outpatient (BNV) | payer MEDICARE, SELFPAY | PROVIDERS: PCP Family Medicine; Visit Provider Nurse Practitioner Family | DX: R06.02 Shortness of breath (principal); R55 Syncope and collapse | CPT/HCPCS: 78452; 93016; 93018 ==

== ENCOUNTER 2024-03-16 15:05 | Outpatient (REF) | payer MEDICARE, SELFPAY | END 2024-03-16 15:06 | disposition home or self-care (01) | LOC: HO.XRAY 15:05 | PROVIDERS: PCP Family Medicine; Visit Provider Internal Medicine | DX: R10.11 Right upper quadrant pain (principal) | CPT/HCPCS: 71100 ==

== ENCOUNTER 2024-03-24 13:02 | Outpatient (AMB) | payer MEDICARE, SELFPAY ==
[2024-03-24 13:04] VITALS: BP 100/55; PULSE 93; BMI 23.7
--- NOTE | 2024-03-24 13:04 | MHC.OFFVIS ---
Vital Signs 03/24/24 13:04 Height 5 ft Weight 121 lb 4.068 oz BMI 23.7 BP 100/55 L Blood Pressure Location Lt brachial Position Sitting Pulse 93 Intake Visit Reasons: Dysphagia Intake Note: Ed presents in the office as a follow up Dysphagia. CC: She state that she is having issues today. She is having pains in the right side of her abdomen. Cardiovascular Technologist Required: Yes Cardiovascular Technologist Name: [id number] [facility] Allergies pregabalin [From Lyrica] Allergy (Intermediate, Verified 03/24/24 13:14) Rash HPI Comments Details: 77 y.o F with PMH of who is here for refractory GERD . 11/16/22: Pt accompanied by her and daughter. Pt reports heartburn sensation for almost a decade now. Happens after food and associated with nausea. Has led to significant decrease in appetite with resultant weight loss of almost 4 lbs in just last one month. Pain often then localises to RUQ. Has been taking pepcid and carafate - feels that carafate helps more. Also takes Omeprazole 20 PRN. Pt also takes naproxen occasionally for that same abdominal pain. Does not smoke or drink. Has never had an EGD, last colo >10 years ago in [place]. Does not remember if she had polyps. s/p CCY. Of note, also reports spasm in around her umbilicus whenever she laughs or with any sudden movement and is concerned for ? hernia. 12/14/22: Here with her . Reports improvement in abdominal pain however heartburn continues to be an issue despite taking PPI as prescribed now i.e daily at least 30-40 mins before first meal of the day. Continues to use Naproxen frequently. 02/12/23: EGD/colo: ESOPHAGUS: Circular folds noted in the proximal esophagus during intubation - biopsies obtained to check for EOE. GE junction at 34 cms, small hiatal hernia 34 to 36 cms. No esophagitis or Hassan's. STOMACH: Diffuse gastritis DUODENUM: Normal - biopsied to check for celiac sprue Colonoscopy Findings: No polyps were detected Moderate diverticulosis seen in the left colon Small hemorrhoids on retroflexed exam. Path: A. Small bowel, biopsy: Small bowel mucosa with preserved villi and no specific change; no evidence of celiac disease. B. Gastric antrum, biopsy: Gastric antral mucosa with reactive changes and minimal chronic active gastritis; negative for intestinal metaplasia and dysplasia. C. Esophagus, proximal, biopsy: Squamous mucosa with no specific change; no evidence of eosinophilic esophagitis; no columnar mucosa present. 02/26/23: Here for post endoscopy follow up. Seen with bottle washer. Reports intermittent R sided discomfort still. Also notices heartburn with nausea some nights despite taking pepcid and then has to take omeprazole on top. Has stopped all nsaids including naproxen. Reviewed results of EGD and colo including non-H pylori gastritis. 03/24/24: Pt called to make this appt for R sided abd pain. Started almost a month ago. Starts out of nowhere lasts for 5 mins. Gets worse on certain positions such as laying down or going from standing to sitting. Had a fall on her R side 2 months ago. Was seen in urgent care for this last month and had rib XRAYS. Results pending. [facility]LY [facility] Medical History Atherosclerotic cardiovascular disease PVD (peripheral vascular disease) Breast nodule Urinary incontinence Osteoporosis Dementia in Alzheimer's disease Chronic diastolic (congestive) heart failure Hypertension Vitamin D deficiency Carpal tunnel syndrome Cervical disc disorder CKD (chronic kidney disease), stage II TONY (generalized anxiety disorder) Vertigo CAD (coronary artery disease) GERD (gastroesophageal reflux disease) Migraine Diabetes mellitus Asthma Surgical History H/O hand surgery Hx of cardiac catheterization History of hernia repair History of left inguinal hernia repair History of right inguinal hernia repair History of cholecystectomy Hx of colonoscopy History of esophagogastroduodenoscopy (EGD) Family History Mother Heart problem Arthritis Social History Alcohol intake: never Patient Tobacco Use Status: Never used Tobacco Review of Systems Const All systems reviewed & are unremarkable except as noted in HPI and below Physical Exam Vital Signs: Last Vital Signs Pulse 93 03/24/24 13:04 BP 100/55 L 03/24/24 13:04 BMI result Body Mass Index 23.7 No apparent distress Nonicteric Abdomen soft, nondistended, intercostal and subcostal tenderness in R lower chest. Alert and oriented x3, normal gait Assessment & Plan Assessment & Plan (1) Right upper quadrant pain: Code(s): R10.11 - Right upper quadrant pain Category: Medical Plan Reviewed that location, character and trigger for pain not consistent with intra-luminal or hepatobiliary etiology but will check LFTs and US to eval. 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 Advised to discuss with PCP further. In the meantime, will Rx symptoamtic mgmt. Plan: - Labs and US abd - Cyclobenzaprine 10 at night - Lidocaine patch - pt aware to remove for 12h - Can take ibuprofen 400 bid SHORT TERM only (3-5 days) Orders: Orders Comprehensive Met. Panel Today R10.11 - Right upper quadrant pain US abdomen complete Today R10.11 - Right upper quadrant pain Complete Blood Count no Diff Today R10.11 - Right upper quadrant pain Prothrombin Time INR Today R10.11 - Right upper quadrant pain Medications: New cyclobenzaprine 10 mg PO BEDTIME 14 days 14 tabs 0RF lidocaine 4% (Aspercreme (lidocaine)) 1 patch topical DAILY PRN 10 ea 0RF pain Coding Level of Care Code Est Pt Level 4 (27357) Diagnoses Right upper quadrant pain R10.11
== END 2024-03-24 13:39 | disposition home or self-care (01) ==
PROVIDERS: PCP Family Medicine; Visit Provider Internal Medicine
DX: R10.11 Right upper quadrant pain (principal)
CPT/HCPCS: 99214

== ENCOUNTER → 2024-03-24 13:02 | Outpatient (BNVA) | payer MEDICARE, SELFPAY | PROVIDERS: PCP Family Medicine; Visit Provider Internal Medicine | DX: R10.11 Right upper quadrant pain (principal) | CPT/HCPCS: 99212 ==

== ENCOUNTER 2024-03-25 09:59 | Outpatient (REF) | payer MEDICARE, SELFPAY ==
[2024-03-25 10:40] LABS: Hemoglobin 12.7 g/dl (12.0-16.0); Mean Corpuscular HGB Conc 34.3 g/dl (31.0-35.0); Mean Corpuscular Hemoglobin 31.5 pg (27.0-33.0); Mean Corpuscular Volume 91.8 fL (80.0-98.0); Mean Platelet Volume 10.5 fL (9.4-12.3); Platelet Count 275 X10*3/uL (160-400); Red Blood Count 4.03 X10*6/uL (4.20-5.50); White Blood Count 4.6 X10*3/uL (4.8-10.8)
[2024-03-25 10:48] LABS: INTERNATIONAL NORM RATIO 0.9 (0.9-1.1); Prothrombin Time 10.3 SEC (10.9-12.4)
[2024-03-25 11:10] LABS: Alanine Aminotransferase 24 U/L (0-31); Albumin Level 3.9 g/dL (3.5-5.0); Alkaline Phosphatase 60 U/L (39-117); Anion Gap 14 (12-20); Aspartate Amino Transferase 29 U/L (5-31); Bilirubin Total 0.5 mg/dL (0.0-1.0); Blood Urea Nitrogen 10 mg/dL (9-16); Calcium 10.2 mg/dL (8.4-10.2); Carbon Dioxide 31 mmol/L (22-29); Chloride 105 mmol/L (96-108); Estimated Glomerular Filt Rate > 60; Glucose Random 114 mg/dL (60-115); Potassium 4.5 mmol/L (3.3-5.1); Sodium 145 mmol/L (135-145); Total Protein 7.6 g/dL (6.5-8.0)
== END 2024-03-25 10:00 | disposition home or self-care (01) ==
LOC: HO.LAB 09:59
PROVIDERS: PCP Family Medicine; Visit Provider Internal Medicine
DX: R10.11 Right upper quadrant pain (principal)
CPT/HCPCS: 36415; 80053; 85027; 85610

== ENCOUNTER 2024-03-29 10:03 | Outpatient (REF) | payer MEDICARE, SELFPAY ==
--- NOTE | ~2024-03-29 | US_ITS ---
EXAMINATION: US ABDOMEN COMPLETE CLINICAL INFORMATION: Right upper quadrant pain. COMPARISON: Ultrasound abdomen 12/03/2022. CT abdomen and pelvis 11/09/2022. TECHNIQUE: Real-time imaging of the abdominal viscera. FINDINGS: PANCREAS: Not visualized obscured by bowel gas ABDOMINAL AORTA: The proximal, mid, and distal segments are normal in caliber. INFERIOR VENA CAVA: Visualized portions are normal. LIVER: Increased echogenicity of the liver parenchyma, this can be seen in the setting of hepatic steatosis or liver parenchymal disease. The liver is normal in size. The liver contour is normal. No focal hepatic lesion. There is no intrahepatic biliary duct dilatation seen. GALLBLADDER: Surgically absent. COMMON BILE DUCT: Normal in caliber measuring 0.19 cm in diameter. RIGHT KIDNEY: Normal. No hydronephrosis. No renal calculi or focal parenchymal lesions. The kidney measures 9.0 cm in maximum dimension. LEFT KIDNEY: Normal. No hydronephrosis. No renal calculi or focal parenchymal lesions. The kidney measures 8.4 cm in maximum dimension. SPLEEN: Normal. The spleen measures 7.8 cm in maximum dimension. FREE FLUID: None. US/US abdomen complete IMPRESSION: 1. Status post cholecystectomy. 2. Pancreas not visualized obscured by bowel gas. 3. Increased echogenicity of the liver parenchyma, this can be seen in the setting of hepatic steatosis or liver parenchymal disease. Electronically signed by: Lupe Macias MD 04/02/2024 07:17 PM [facility]
== END 2024-03-29 10:04 | disposition home or self-care (01) ==
LOC: HO.HMGCX 10:03
PROVIDERS: PCP Family Medicine; Visit Provider Internal Medicine
DX: R10.11 Right upper quadrant pain (principal); R06.00 Dyspnea, unspecified; J44.89 Other specified chronic obstructive pulmonary disease
CPT/HCPCS: 76700; 99212

== ENCOUNTER 2024-03-29 14:57 | Outpatient (AMB) | payer MEDICARE, SELFPAY ==
--- NOTE | 2024-03-29 14:59 | A.OFFVIS_ITS ---
Vital Signs 03/29/24 15:02 Height 5 ft Weight 122 lb BMI 23.8 BP 124/78 Blood Pressure Location Rt brachial Position Sitting Pulse 80 Pulse Source Pulse Oximeter Pulse Oximetry (%) 97 Oxygen Delivery Method Room Air Intake Visit Reasons: Shortness of breath Pile Driving Supervisor Required: Yes Pile Driving Supervisor Language: On Site Nurse Services: Pile Driving Supervisor Present Pile Driving Supervisor Name: Viviana Mansfield OA Allergies pregabalin [From Lyrica] Allergy (Intermediate, Verified 03/29/24 15:06) Rash HPI HPI Shortness of breath: Details: Ed is a pleasant 78 year old, never smoker, with underlying childhood asthma, asthma COPD overlap syndrome, GERD, osteoporosis and diastolic dysfunction. At the last visit, she had reported worsening respiratory symptoms however today she reports significant improvements with Trelegy, albuterol MDI and levalbuterol neb. She denies any coughing or wheezing at this time. PFT 2022: Mild obstructive defect with significant response to bronchodilators- FEV1/FVC 62% AAT2759% predicted and FVC 139% predicted, TLC 82%, DLCO 76% Chest CT 06/09: unremarkable [facility] Medical History Atherosclerotic cardiovascular disease PVD (peripheral vascular disease) Breast nodule Urinary incontinence Osteoporosis Dementia in Alzheimer's disease Chronic diastolic (congestive) heart failure Hypertension Vitamin D deficiency Carpal tunnel syndrome Cervical disc disorder CKD (chronic kidney disease), stage II TONY (generalized anxiety disorder) Vertigo CAD (coronary artery disease) GERD (gastroesophageal reflux disease) Migraine Diabetes mellitus Asthma Surgical History H/O hand surgery Hx of cardiac catheterization History of hernia repair History of left inguinal hernia repair History of right inguinal hernia repair History of cholecystectomy Hx of colonoscopy History of esophagogastroduodenoscopy (EGD) Family History Mother Heart problem Arthritis Social History Alcohol intake: never Patient Tobacco Use Status: Never used Tobacco Review of Systems Const Denies chills, Denies excessive sweating, Denies fever(s), Denies headache(s) and Denies night sweats Eyes Denies dry eyes, Denies irritation and Denies itchy eyes ENT Reports Normal hearing present, Denies headache(s), Denies nasal congestion, Denies nasal discharge, Denies post nasal drip and Denies sore throat Card Denies chest pain, Denies chest pain at rest, Denies chest pain with activity, Denies claudication, Denies leg edema, Denies orthopnea and Denies paroxysmal nocturnal dyspnea Resp Denies chest congestion, Denies cough, Denies excessive phlegm production, Denies pain on inspiration, Denies pain with cough, Denies stridor and Denies wheezing Musc Denies myalgias Neuro Reports Normal hearing present and Denies headache(s) Endo Denies excessive sweating Dav/Lymph Denies lymphadenopathy Aller/Immun Denies itchy eyes, Denies seasonal rhinorrhea and Denies wheezing Physical Exam Vital Signs: Last Vital Signs Pulse 80 03/29/24 15:02 BP 124/78 03/29/24 15:02 Pulse Ox 97 03/29/24 15:02 Oxygen Delivery Method Room Air 03/29/24 15:02 BMI result Body Mass Index 23.8 Const General: cooperative, healthy appearing, no acute distress and alert Orientation/consciousness: patient oriented x3 Limitations: ambulation with walker HEENT Head: Yes normal to inspection, Yes normocephalic and Yes atraumatic Ears: hearing grossly normal bilaterally and external ears normal Eyes General: appearance normal, both eyes and all related structures Eyelids: Yes eyelids normal Sclerae: sclerae normal EOM: EOMs intact bilaterally Neck Neck: Yes normal visual inspection and Yes no lymphadenopathy Lymphatic: no lymphadenopathy noted Chest Chest palpation & inspection: normal inspection of the chest Resp Effort & Inspection: normal respiratory effort, able to speak in complete sentences, no audible wheezes, no stridor, not tachypneic, no tripod positioning and no use of accessory muscles Auscultation: diminished lung sounds Cardio Jugular venous distension: no JVD Rate: regular rate Rhythm: regular rhythm Skin Other: warm, dry General skin exam: no rashes or lesions noted Neuro General: patient oriented x3 Cranial nerves: Yes Normal hearing present Cognition (Neuro): normal cognition Extrem General: Yes normal to inspection, Yes capillary refill normal, Yes no clubbing, cyanosis or edema and Yes no pedal edema Psych Appearance: grossly normal and well kempt Speech and movement: Normal speech and movement present and Clear speech present Affect: normal affect Attitude: cooperative Thought process: Normal thought process present Thought content: Normal thought content present Insight: Good insight present (Psych) Judgement: Good judgement present (Psych) Assessment & Plan Assessment & Plan (1) Asthma-COPD overlap syndrome: Code(s): J44.89 - Other specified chronic obstructive pulmonary disease Category: Medical (2) Dyspnea: Code(s): R06.00 - Dyspnea, unspecified Category: Medical Plan Advised to continue current regimen as symptoms well controlled. She is aware to call if symptoms worsen. All questions were answered and patient is in agreement of plan. Will follow-up in 3 months or sooner if needed. Medications: New albuterol sulfate 90 mcg/actuation 2 puffs inhalation Q4-6H PRN 1 ea 3RF shortness of breath or wheezing Coding Level of Care Code Est Pt Level 4 (13609) Diagnoses Asthma-COPD overlap syndrome J44.89 Dyspnea R06.00
[2024-03-29 15:02] VITALS: BP 124/78; PULSE 80; O2SAT 97; BMI 23.8
== END 2024-03-29 15:23 | disposition home or self-care (01) ==
PROVIDERS: PCP Family Medicine; Visit Provider Nurse Practitioner Family
DX: J44.89 Other specified chronic obstructive pulmonary disease (principal); R06.00 Dyspnea, unspecified
CPT/HCPCS: 99214

== ENCOUNTER 2024-04-03 08:19 | Outpatient (AMB) | payer MEDICARE, SELFPAY ==
--- NOTE | 2024-04-02 15:36 | MHC.OFFVIS ---
Intake Visit Reasons: 8w follow up/PVR Intake Note: Patient is present for 8W/PVR Urology Medication:TAMSULOSIN Antibiotic Allergy:NONE Blood Thinner:ASPIRIN TODAY'S PVR:0ML'S Composing Room Machinist Required: Yes Composing Room Machinist Name: Anaya Information Interpreted: non-clinical & clinical Allergies pregabalin [From Lyrica] Allergy (Intermediate, Verified 04/03/24 08:55) Rash HPI Comments Details: 04/03/24--8 week fu meds, PVR Ed is a 78-year-old female who is followed for history of microscopic hematuria, chronic cystitis and lower urinary tract symptoms of slowing of urinary stream. Last visit 01/26/2024 office cystoscopy noted urethral narrowing and she was started on Flomax. The patient states the medication did not help so she stopped it. Currently she denies any urinary incontinence. She has been using the Estrace cream. Bladder scan PVR is within normal limits. We will continue to monitor. Review of chart: 01/26/2024--here for cystoscopy. Cystoscopy findings bladder wall thickening, urethral narrowing. We will hold on Myrbetriq and start Flomax 0.4 mg at bedtime. Discussed possible side effects of dizziness and decrease in blood pressure. The patient's daughter states that her mother has episodes of being unbalanced she was evaluated by ENT and they did not find anything. The patient lives with her daughter. Discussed if any side effects to stop medication and give our office a call. 12/14/23--Ed is a very pleasant 78-year-old Nepalese-speaking female patient of Dr. Headley. She presents to the office today for a follow up of her ongoing urological issues. She has a past medical history of asthma, DM, migraine headaches, GERD, CAD, vertigo, anxiety, chronic kidney disease stage 2, cervical disc disorder, carpal tunnel syndrome, vitamin-D deficiency, hypertension, chronic diastolic heart failure, dementia Alzheimer's, osteoporosis, left breast nodule, and PVD. In discussion with the patient today she reports noting episodes of gross hematuria since her last office visit here approximately 4 months ago. She reports she had been compliant with Estrace and Myrbetriq as prescribed however has since recently ran out of refills. She does have a longstanding history of microscopic hematuria and has underwent multiple cystoscopy in the past in [place] in 2011 and again in 2020 both that she notes were within normal limits. She denies any smoking history and or known workplace chemical exposure. She reports that although she has experienced episodes of gross hematuria she has had no bothersome urinary issues or concerns since her last office visit here. She denies urinary urgency, urinary frequency, incontinence, flank pain, foul-smelling urine, fever, and or chills. Discussed at length potential causes for hematuria. I discussed reasons for blood in the urine may include but are not limited to kidney stones, cancer in the urinary tract, kidney stone disease or inflammatory conditions of the urinary tract. In office urinalysis results reviewed with the patient today microscopic hematuria noted otherwise negative leukocytes negative nitrates. PVR 16 mL She otherwise offers no other issues or concerns at this time. [facility] Medical History Atherosclerotic cardiovascular disease PVD (peripheral vascular disease) Breast nodule Urinary incontinence Osteoporosis Dementia in Alzheimer's disease Chronic diastolic (congestive) heart failure Hypertension Vitamin D deficiency Carpal tunnel syndrome Cervical disc disorder CKD (chronic kidney disease), stage II TONY (generalized anxiety disorder) Vertigo CAD (coronary artery disease) GERD (gastroesophageal reflux disease) Migraine Diabetes mellitus Asthma Surgical History H/O hand surgery Hx of cardiac catheterization History of hernia repair History of left inguinal hernia repair History of right inguinal hernia repair History of cholecystectomy Hx of colonoscopy History of esophagogastroduodenoscopy (EGD) Family History Mother Heart problem Arthritis Social History Alcohol intake: never Patient Tobacco Use Status: Never used Tobacco Review of Systems Const All systems reviewed & are unremarkable except as noted in HPI and below Reports no additional complaints Eyes Reports no additional complaints ENT Reports no additional complaints Card Reports no additional complaints Resp Reports no additional complaints GI Reports no additional complaints Reports as per HPI Musc Reports no additional complaints Skin/Breast Reports system reviewed and no additional complaints, except as documented Neuro Reports no additional complaints Psych Reports no additional complaints Endo Reports no additional complaints Dav/Lymph Reports no additional complaints Aller/Immun Reports no additional complaints Office Procedures Post Void Residual Post Residual Void Post Void Residual (PVR): 0 [id number]-[id number] Void Residual by ultrasound Assessment & Plan Assessment & Plan (1) Microhematuria: Code(s): R31.29 - Other microscopic hematuria Category: Medical (2) Sensation of pressure in bladder area: Code(s): R39.89 - Other symptoms and signs involving the genitourinary system Category: Medical (3) Urinary frequency: Code(s): R35.0 - Frequency of micturition Category: Medical (4) Feeling of incomplete bladder emptying: Code(s): R39.14 - Feeling of incomplete bladder emptying Category: Medical Plan Microscopic hematuria, chronic cystitis and lower urinary tract symptoms of slowing of urinary stream. Last visit 01/26/2024 office cystoscopy noted urethral narrowing and she was started on Flomax. The patient states the medication did not help so she stopped it. Currently she denies any urinary incontinence. She has been using the Estrace cream. Bladder scan PVR is within normal limits. We will continue to monitor. Medications: Refilled estradiol 0.01%(0.1mg/gram) vaginally 3 times a week; pea sized amount to urethra 3 times a week 30 days 42.5 grams 3RF Discontinued tamsulosin (Flomax) Discontinued Reason: Patient no longer taking 0.4 mg PO BEDTIME 30 caps 3RF For urination Coding Level of Care Code Est Pt Level 4 (15794) Diagnoses Microhematuria R31.29 Sensation of pressure in bladder area R39.89 Urinary frequency R35.0 Feeling of incomplete bladder emptying R39.14 CPT Codes Post Residual Void - PVR CPT Code: 62424-Zftp Void Residual by ultrasound ([id number])
== END 2024-04-03 09:58 | disposition home or self-care (01) ==
PROVIDERS: PCP Family Medicine; Visit Provider Urology
DX: R31.29 Other microscopic hematuria (principal); R39.89 Other symptoms and signs involving the genitourinary system; R35.0 Frequency of micturition; R39.14 Feeling of incomplete bladder emptying
CPT/HCPCS: 99214

== ENCOUNTER → 2024-04-03 08:19 | Outpatient (BNVA) | payer MEDICARE, SELFPAY | PROVIDERS: PCP Family Medicine; Visit Provider Urology | DX: N30.21 Other chronic cystitis with hematuria (principal); R39.12 Poor urinary stream; R31.29 Other microscopic hematuria; R39.89 Other symptoms and signs involving the genitourinary system; R35.0 Frequency of micturition; R39.14 Feeling of incomplete bladder emptying | CPT/HCPCS: 51798; 99212 ==

== ENCOUNTER 2024-04-18 15:04 | Outpatient (AMB) | payer MEDICARE, SELFPAY ==
[2024-04-18 15:11] VITALS: BP 105/71; PULSE 84; BMI 24.0
--- NOTE | 2024-04-18 15:11 | A.OFFVIS_ITS ---
Vital Signs 04/18/24 15:11 Height 5 ft Weight 123 lb 0.287 oz BMI 24.0 BP 105/71 Blood Pressure Location Rt brachial Position Sitting Pulse 84 Intake Visit Reasons: 1 month follow up Intake Note: Patient in office today in 1 month follow up of abdominal pain. CC: Patient c/o RUQ abdominal pain after eating. She aslo c/o pain from her Rt flank s/p getting vertigo and having a heavy medicine cabinet on that side about a month ago. Accompanied by: Spouse Allergies pregabalin [From Lyrica] Allergy (Intermediate, Verified 07/17/24 15:38) Rash HPI Comments Details: 77 y.o F with PMH of who is here for refractory GERD . 11/16/22: Pt accompanied by her and daughter. Pt reports heartburn sensation for almost a decade now. Happens after food and associated with nausea. Has led to significant decrease in appetite with resultant weight loss of almost 4 lbs in just last one month. Pain often then localises to RUQ. Has been taking pepcid and carafate - feels that carafate helps more. Also takes Omeprazole 20 PRN. Pt also takes naproxen occasionally for that same abdominal pain. Does not smoke or drink. Has never had an EGD, last colo >10 years ago in [place]. Does not remember if she had polyps. s/p CCY. Of note, also reports spasm in around her umbilicus whenever she laughs or with any sudden movement and is concerned for ? hernia. 12/14/22: Here with her . Reports improvement in abdominal pain however heartburn continues to be an issue despite taking PPI as prescribed now i.e daily at least 30-40 mins before first meal of the day. Continues to use Naproxen frequently. 02/12/23: EGD/colo: ESOPHAGUS: Circular folds noted in the proximal esophagus during intubation - biopsies obtained to check for EOE. GE junction at 34 cms, small hiatal hernia 34 to 36 cms. No esophagitis or Hassan's. STOMACH: Diffuse gastritis DUODENUM: Normal - biopsied to check for celiac sprue Colonoscopy Findings: No polyps were detected Moderate diverticulosis seen in the left colon Small hemorrhoids on retroflexed exam. Path: A. Small bowel, biopsy: Small bowel mucosa with preserved villi and no specific change; no evidence of celiac disease. B. Gastric antrum, biopsy: Gastric antral mucosa with reactive changes and minimal chronic active gastritis; negative for intestinal metaplasia and dysplasia. C. Esophagus, proximal, biopsy: Squamous mucosa with no specific change; no evidence of eosinophilic esophagitis; no columnar mucosa present. 02/26/23: Here for post endoscopy follow up. Seen with golf shoe spike assembler. Reports intermittent R sided discomfort still. Also notices heartburn with nausea some nights despite taking pepcid and then has to take omeprazole on top. Has stopped all nsaids including naproxen. Reviewed results of EGD and colo including non-H pylori gastritis. 03/24/24: Pt called to make this appt for R sided abd pain. Started almost a month ago. Starts out of nowhere lasts for 5 mins. Gets worse on certain positions such as laying down or going from standing to sitting. Had a fall on her R side 2 months ago. Was seen in urgent care for this last month and had rib XRAYS. Results pending. 04/18/24: Here for follow up. Reports improvement of pain. Now pain is mostly in the flank. US Abd results reviewed. Fatty liver noted but normal LFTs which argue against active HOPSON. 1. Status post cholecystectomy. 2. Pancreas not visualized obscured by bowel gas. 3. Increased echogenicity of the liver parenchyma, this can be seen in the setting of hepatic steatosis or liver parenchymal disease. PFSH Medical History Atherosclerotic cardiovascular disease PVD (peripheral vascular disease) Breast nodule Urinary incontinence Osteoporosis Dementia in Alzheimer's disease Chronic diastolic (congestive) heart failure Hypertension Vitamin D deficiency Carpal tunnel syndrome Cervical disc disorder CKD (chronic kidney disease), stage II TONY (generalized anxiety disorder) Vertigo CAD (coronary artery disease) GERD (gastroesophageal reflux disease) Migraine Diabetes mellitus Asthma Surgical History H/O hand surgery Hx of cardiac catheterization History of hernia repair History of left inguinal hernia repair History of right inguinal hernia repair History of cholecystectomy Hx of colonoscopy History of esophagogastroduodenoscopy (EGD) Family History Mother Heart problem Arthritis Social History Household Members: Spouse, Family and Children Housing: House Alcohol intake: never Patient Tobacco Use Status: Never used Tobacco Second Hand Smoke Exposure: No service: No Review of Systems Const All systems reviewed & are unremarkable except as noted in HPI and below Physical Exam Vital Signs: Last Vital Signs Pulse 84 04/18/24 15:11 BP 105/71 04/18/24 15:11 BMI result Body Mass Index 24.0 No apparent distress Nonicteric Abdomen soft, nondistended Alert and oriented x3, normal gait Assessment & Plan Assessment & Plan (1) Right upper quadrant pain: Code(s): R10.11 - Right upper quadrant pain Category: Medical Plan 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 Better with topical meds and muscle relaxant. US without gallstones or CBD stone. Plan: - Cont topical lidocaine and PO cyclobenzaprine - heat application Follow up in 3 months if still symptomatic Medications: Changed From cyclobenzaprine 10 mg PO BEDTIME 14 days 14 tabs 0RF To cyclobenzaprine 10 mg PO BEDTIME 30 tabs 1RF 30 days Coding Level of Care Code Est Pt Level 3 (03715) Diagnoses Right upper quadrant pain R10.11
== END 2024-04-18 16:13 | disposition home or self-care (01) ==
PROVIDERS: PCP Family Medicine; Visit Provider Internal Medicine
DX: R10.11 Right upper quadrant pain (principal)
CPT/HCPCS: 99499

== ENCOUNTER → 2024-04-18 15:04 | Outpatient (BNVA) | payer MEDICARE, SELFPAY | PROVIDERS: PCP Family Medicine; Visit Provider Internal Medicine ==

== ENCOUNTER 2024-05-16 12:21 | Inpatient (IN) | payer MEDICARE, SELFPAY ==
[2024-05-16] VITALS (7 sets, daily range): BP systolic 105–111; BP diastolic 54–70; PULSE 74–89; RESP 15–24; TEMP 36.6–37.2; O2SAT 89–98; BMI 20.7
--- NOTE | ~2024-05-16 | XR_ITS ---
EXAMINATION: XR CHEST CLINICAL INFORMATION: cough, fever COMPARISON: Chest 03/16/2024 TECHNIQUE: Frontal view of the chest was obtained. FINDINGS: No significant abnormality is noted involving the heart, lungs, mediastinum, bony thorax or soft tissues. XR/XR chest 1V IMPRESSION: Unremarkable chest examination. Electronically signed by: Luke Linares MD 05/16/2024 01:21 PM [facility]
--- NOTE | 2024-05-16 12:44 | ECG_ITS ---
Test Reason : DYSPNEA Blood Pressure : / mmHG Vent. Rate : 078 BPM Atrial Rate : 078 BPM P-R Int : 150 ms QRS Dur : 080 ms QT Int : 340 ms P-R-T Axes : 019 -38 041 degrees QTc Int : 387 ms Normal sinus rhythm Left axis deviation Moderate voltage criteria for LVH, may be normal variant ( R in aVL , [place] product ) Nonspecific ST abnormality Abnormal ECG When compared with ECG of 20-FEB-2024 15:55, Borderline criteria for Anteroseptal infarct are no longer Present Referred By: Nandini Dumont Electronically Signed By:SINAN LIN MD
[2024-05-16] MEDS: Albuterol Sulfate 5 MG, Albuterol/Iprat 2.5/0.5MG 3 ML 3 ML INHALE (12:57)
--- NOTE | 2024-05-16 13:07 | ED.ASTHMA ---
HPI - Asthma General Chief Complaint: Dyspnea Stated Complaint: DIFF BREATHING X3D,93% RA,DUONEB GIVEN Time Seen by Provider: 05/16/24 12:32 Source: patient, family, EMS and old records reviewed Mode of arrival: EMS Limitations: no limitations History of Present Illness ED Provider: JENNIFER HPI Narrative: 78 yo female with PMH of asthma-COPD overlap not on home O2, heartburn, HTN, DM, dCHF, CAD who has had a cough and wheezing since 05/05 now x 3 days much worse with sputum, subj fevers, cough and not feeling well. She has chest tightness. She is taking scheduled nebs every 4 hours but no improvement. She has not been on steroids or antibiotics. She does go to an adult day program where she could have gotten sick. No n/v/d no abdominal pain. Was at [facility] today and given nebs - no improvement EMS noted 89% on RA, given 125mg solumedrol and magnesium by EMS as well MD complaint: asthma attack , shortness of breath and wheezing Onset (ago): day(s) (since 05/05) Severity: moderate Context: recent URI Associated symptoms: productive cough Asthma History: adult onset Treatments Prior to Arrival: inhaled bronchodilator, IV steroid, oxygen and other (IV magnesium) Related Data Home Medications ?Medication ?Instructions ?Recorded ?Confirmed aspirin 81 mg tablet,delayed 81 mg PO QAM 10/15/22 02/01/24 release dnrzrjutsc-wtopcrpiorimn-gbusduzz 1 tab PO Q6H PRN headache 10/15/22 02/01/24 50 mg-325 mg-40 mg tablet calcium carbonate 600 mg PO BID 10/15/22 02/01/24 cyclobenzaprine 10 mg tablet 10 mg PO BEDTIME 10/15/22 02/01/24 famotidine 40 mg tablet 40 mg PO BEDTIME 10/15/22 02/01/24 metformin 500 mg tablet 500 mg PO TID 10/15/22 02/01/24 montelukast 10 mg tablet 10 mg PO QAM 10/15/22 02/01/24 multivitamin 1 tab PO QAM 10/15/22 02/01/24 rosuvastatin 20 mg tablet 20 mg PO QAM 10/15/22 02/01/24 sucralfate 100 mg/mL oral 10 ml PO Q6H 10/15/22 02/01/24 suspension (Carafate) losartan 25 mg tablet 25 mg PO QAM 11/16/22 02/01/24 venlafaxine 37.5 mg 37.5 mg PO DAILY 02/26/23 02/01/24 capsule,extended release 24 hr diclofenac sodium 1 % topical gel topical 03/03/23 02/01/24 quetiapine 25 mg tablet 25 mg PO BEDTIME 03/03/23 02/01/24 gabapentin 300 mg capsule 300 mg PO TID 07/29/23 02/01/24 celecoxib 100 mg capsule 100 mg PO BID 11/24/23 02/01/24 memantine 5 mg tablet 5 mg PO BID 11/24/23 02/01/24 oxycodone-acetaminophen 5 mg-325 tab PO 11/24/23 02/01/24 mg tablet tramadol 50 mg tablet 50 mg PO BID PRN Pain 11/24/23 02/01/24 estradiol 0.01% (0.1 mg/gram) vaginal 3XW 05/16/24 vaginal cream fluticasone fur. 200 mcg-umeclid 1 ea inhalation DAILY 05/16/24 62.5 mcg-vilant 25 mcg inhalat.powder (Trelegy Ellipta) Previous Rx's ?Medication ?Instructions ?Recorded omeprazole 20 mg capsule,delayed 20 mg PO DAILY 4 weeks #28 caps 02/26/23 release amitriptyline 25 mg tablet 25 mg PO BEDTIME 30 days #30 tabs 07/21/23 cholecalciferol (vitamin D3) 50 50 mcg PO DAILY #90 caps 08/31/23 mcg (2,000 unit) capsule (Vitamin D3) levalbuterol HCl 1.25 mg/3 mL 1.25 mg (3 mL) inhalation Q4-6H 03/01/24 solution for nebulization PRN shortness of breath or wheezing #90 mL lidocaine 4 % topical patch 1 patch topical DAILY PRN pain #10 03/24/24 (Aspercreme (lidocaine)) ea albuterol sulfate 90 mcg/actuation 2 puff inhalation Q4-6H PRN 03/29/24 aerosol inhaler shortness of breath or wheezing #1 ea Allergies Allergy/AdvReac Type Severity Reaction Status Date / Time pregabalin [From Lyrica] Allergy Intermediate Rash Verified 05/16/24 12:36 Review of Systems Review of Systems: Constitutional : No Fever, No Chills ENT/Mouth : No Hoarseness, No sore throat, No Rhinorrhea Eyes: No Redness, No Discharge, No Vision Changes Cardiovascular : No Chest Pain, positive SOB, positive Dyspnea on Exertion, No Edema Respiratory : positive Cough, pos Sputum, positive Wheezing, Gastrointestinal : No Nausea, No Vomiting, No Diarrhea, No abdominal Pain Genitourinary : No Dysuria, No Hematuria Musculoskeletal : No joint pain, No Myalgias Skin : No rash Neuro : No Weakness, No Numbness, No Headache Psych : No anxiety, depression All other systems reviewed and are negative [facility] Past Medical History Attestation statement: The following information was validated with the patient. Source: old records reviewed Medical History Atherosclerotic cardiovascular disease PVD (peripheral vascular disease) Breast nodule Urinary incontinence Osteoporosis Dementia in Alzheimer's disease Chronic diastolic (congestive) heart failure Hypertension Vitamin D deficiency Carpal tunnel syndrome Cervical disc disorder CKD (chronic kidney disease), stage II TONY (generalized anxiety disorder) Vertigo CAD (coronary artery disease) GERD (gastroesophageal reflux disease) Migraine Diabetes mellitus Asthma Surgical History H/O hand surgery Hx of cardiac catheterization History of hernia repair History of left inguinal hernia repair History of right inguinal hernia repair History of cholecystectomy Hx of colonoscopy History of esophagogastroduodenoscopy (EGD) Family History Family History Mother Heart problem Arthritis Social History Social History Household Members: Spouse, Family and Children Housing: House Alcohol intake: never Patient Tobacco Use Status: Never used Tobacco Second Hand Smoke Exposure: No Physical Exam Vital Signs: Vital Signs: Last Vital Signs Temp 97.9 F 05/16/24 16:18 Pulse 88 05/16/24 19:33 Resp 16 05/16/24 19:33 BP 110/65 05/16/24 16:18 Pulse Ox 93 05/16/24 16:18 O2 Del Method Room Air 05/16/24 16:18 O2 Flow Rate 1 05/16/24 14:27 BMI result Body Mass Index 20.7 Appearance: Alert. Oriented X3. Mild acute distress. Eyes: Pupils equal, round and reactive to light. ENT: Pharynx normal. Neck: Normal inspection. Neck supple. CVS: Normal heart rate and rhythm. Pulses normal. Respiratory: Mild respiratory distress tachypnea and retractions. Breath sounds diffuse exp wheezes Abdomen: Soft and non-tender. Skin: Skin warm and dry. Normal skin color. Normal skin turgor. Extremities: No lower extremity edema. No calf ttp Neuro: Oriented X 3. No motor deficit. No sensory deficit. Medications Administered Generic Name Dose Route Start Last Admin Trade Name Freq PRN Reason Stop Dose Admin Albuterol/Ipratropium 3 ml 05/16/24 15:15 05/16/24 19:33 Albuterol/Iprat 2.5/0.5mg 3 Ml Ampul.Neb INHALE 3 ml Q4H PAIGE Administration Enoxaparin Sodium 40 mg 05/16/24 15:15 05/16/24 18:11 Enoxaparin Sodium 40 Mg/0.4 Ml Syringe SUBCUT 40 mg Q24H PAIGE Administration Insulin Human Lispro 0 unit 05/16/24 16:30 05/16/24 18:18 Insulin Lispro 100 Unit/Ml 3 Ml Vial SUBCUT 6 unit QIDACHS PAIGE Administration Protocol Omeprazole 20 mg 05/16/24 15:20 05/16/24 18:11 Omeprazole 20 Mg Capsule.Dr PO 20 mg DAILY@0630 PAIGE Administration Sodium Chloride 3 ml 05/16/24 16:00 05/16/24 17:17 0.9 % Sodium Chloride Flush 3 Ml Syringe IVFLUSH Not Given QSHIFT PAIGE Discontinued Medications Generic Name Dose Route Start Last Admin Trade Name Freq PRN Reason Stop Dose Admin Ceftriaxone Sodium 1 gm 05/16/24 12:44 05/16/24 13:24 Ceftriaxone Sodium 1 Gm Vial IVPUSH 05/16/24 12:45 1 gm ONCE ONE Administration Albuterol Sulfate 5 mg/ 0 mg 05/16/24 12:51 05/16/24 12:57 Albuterol/Ipratropium 3 ml INHALE 05/16/24 12:52 1 each ONCE ONE Administration Azithromycin 500 mg/ Sodium 250 mls @ 125 mls/hr 05/16/24 12:44 05/16/24 17:17 Chloride IV 05/16/24 14:43 Infused ONCE ONE Infusion Sodium Chloride 500 mls @ 500 mls/hr 05/16/24 13:55 05/16/24 17:17 Ns IV 05/16/24 14:54 Infused .Q1H ONE Infusion Methylprednisolone Sodium Succinate 125 mg 05/16/24 15:18 05/16/24 18:11 Methylprednisolone Sod Succ 125 Mg/2 Ml Vial IVPUSH 05/16/24 15:19 125 mg ONCE ONE Administration Medical Decision Making Medical Decision Making [facility] Narrative: 78 yo female with PMH of asthma-COPD overlap not on home O2, heartburn, HTN, DM, dCHF, CAD who presents with URI symptoms and increased work of breathing since 05/05 but much worse past 3 days, fevers, sputum at this time basic labs, EKG, cultures, lactic acid, viral panel - O2 supplementation, empiric CAP coverage. She already received IV steroids and IV magnesium. Suspect COPD, viral syndrome, CAP. Planned admit. Differential Diagnosis Differential Diagnoses: The differential diagnosis associated with the presentation includes asthma, COPD, viral syndrome, CAP Admission/Observation Consideration of admission/observation: Escalation of care including admission/observation considered given work of breathing and hypoxia will admit for further workup Consult Healthcare Provider Management of the patient was discussed with: Hospitalist (will admit) Lab Data [facility] Lab Attestation statement: I reviewed the patient's lab results. 05/16/24 13:10 05/16/24 13:10 Labs: Lab Results 05/16/24 05/16/24 05/16/24 Range/Units 13:09 13:10 13:17 WBC 8.0 (4.8-10.8) X10*3/uL RBC 4.33 (4.20-5.50) X10*6/uL Hgb 13.3 (12.0-16.0) g/dl Hct 39.3 (37.0-47.0) % MCV 90.8 (80.0-98.0) fL MCH 30.7 (27.0-33.0) pg MCHC 33.8 (31.0-35.0) g/dl RDW 14.5 (11.0-16.0) % Plt Count 184 D (160-400) X10*3/uL MPV 10.4 (9.4-12.3) fL Immature Gran % (Auto) 0.5 H (0.0-0.4) % Neut % (Auto) 50.6 (45-73) % Lymph % (Auto) 38.7 (20-40) % [place] % (Auto) 7.9 (2-11) % Eos % (Auto) 2.0 (0-4) % Baso % (Auto) 0.3 (0-2) % Lymph # (Auto) 3.1 (1.2-4.9) X10*3/uL [place] # (Auto) 0.6 (0.1-1.2) X10*3/uL Eos # (Auto) 0.2 (0.0-0.4) X10*3/uL Baso # (Auto) 0.0 (0.0-0.2) X10*3/uL Abs Immat Gran (auto) 0.04 H (0.00-0.03) X10*3/uL Absolute Neuts (auto) 4.0 (2.0-8.3) x10*3/uL Absolute Nucleated RBC 0.000 (0.0-0.012) X10*3/uL Nucleated RBC % (auto) 0.0 (0.0-0.2) /100WBC VBG pH 7.37 (7.32-7.43) VBG pCO2 53 mmHg VBG pO2 47 mmHg VBG HCO3 31 H (22-26) mmol/L VBG O2 Saturation 72.0 % VBG Base Excess 4.7 mmol/L Sodium 142 (135-145) mmol/L Potassium 3.9 (3.3-5.1) mmol/L Chloride 108 (96-108) mmol/L Carbon Dioxide 26 (22-29) mmol/L Anion Gap 12 (12-20) BUN 12 (9-16) mg/dL Creatinine 0.83 (0.5-1.4) mg/dL Estim Creat Clear Calc 49.6 Estimated GFR > 60 Random Glucose 149 H (60-115) mg/dL Lactic Acid 3.0 H* (0.5-2.0) mmol/L Calcium 9.1 D (8.4-10.2) mg/dL Magnesium 3.2 H (1.6-2.6) mg/dL Total Bilirubin 0.4 (0.0-1.0) mg/dL Direct Bilirubin 0.2 (0.0-0.5) mg/dL AST 28 (5-31) U/L ALT 31 (0-31) U/L Alkaline Phosphatase 66 (39-117) U/L Troponin I High Sens < 2.7 (<3.5-17.0) ng/L C-Reactive Protein < 0.10 (< or = 0.50) mg/dL B-Natriuretic Peptide < 10 (<100) pg/mL Total Protein 7.4 (6.5-8.0) g/dL Albumin 4.0 (3.5-5.0) g/dL Lipase 21 (8-78) U/L Procalcitonin 0.05 ng/mL Urine Color Urine Appearance Urine pH (5.0-9.0) Ur Specific [place] (1.005-1.025) Urine Protein (Neg-Trace) mg/dL Urine Glucose (UA) (Negative) mg/dL Urine Ketones (Negative) mg/dL Urine Blood (Negative) Urine Nitrite (Negative) Ur Leukocyte Esterase (Negative) Urine RBC (0-2) /HPF Urine WBC (0-5) /HPF Ur Squamous Epith Cells (0-2) /HPF Urine Bacteria (None Seen) Hyaline Casts (0-2) /LPF Influenza Type A (PCR) NEGATIVE (Negative) Influenza Type B (PCR) NEGATIVE (Negative) RSV RNA Qual (PCR) NEGATIVE (Negative) SARS-CoV-2 RNA (RT-PCR) NEGATIVE (Negative) 05/16/24 Range/Units 14:49 WBC (4.8-10.8) X10*3/uL RBC (4.20-5.50) X10*6/uL Hgb (12.0-16.0) g/dl Hct (37.0-47.0) % MCV (80.0-98.0) fL MCH (27.0-33.0) pg MCHC (31.0-35.0) g/dl RDW (11.0-16.0) % Plt Count (160-400) X10*3/uL MPV (9.4-12.3) fL Immature Gran % (Auto) (0.0-0.4) % Neut % (Auto) (45-73) % Lymph % (Auto) (20-40) % [place] % (Auto) (2-11) % Eos % (Auto) (0-4) % Baso % (Auto) (0-2) % Lymph # (Auto) (1.2-4.9) X10*3/uL [place] # (Auto) (0.1-1.2) X10*3/uL Eos # (Auto) (0.0-0.4) X10*3/uL Baso # (Auto) (0.0-0.2) X10*3/uL Abs Immat Gran (auto) (0.00-0.03) X10*3/uL Absolute Neuts (auto) (2.0-8.3) x10*3/uL Absolute Nucleated RBC (0.0-0.012) X10*3/uL Nucleated RBC % (auto) (0.0-0.2) /100WBC VBG pH (7.32-7.43) VBG pCO2 mmHg VBG pO2 mmHg VBG HCO3 (22-26) mmol/L VBG O2 Saturation % VBG Base Excess mmol/L Sodium (135-145) mmol/L Potassium (3.3-5.1) mmol/L Chloride (96-108) mmol/L Carbon Dioxide (22-29) mmol/L Anion Gap (12-20) BUN (9-16) mg/dL Creatinine (0.5-1.4) mg/dL Estim Creat Clear Calc Estimated GFR Random Glucose (60-115) mg/dL Lactic Acid (0.5-2.0) mmol/L Calcium (8.4-10.2) mg/dL Magnesium (1.6-2.6) mg/dL Total Bilirubin (0.0-1.0) mg/dL Direct Bilirubin (0.0-0.5) mg/dL AST (5-31) U/L ALT (0-31) U/L Alkaline Phosphatase (39-117) U/L Troponin I High Sens (<3.5-17.0) ng/L C-Reactive Protein (< or = 0.50) mg/dL B-Natriuretic Peptide (<100) pg/mL Total Protein (6.5-8.0) g/dL Albumin (3.5-5.0) g/dL Lipase (8-78) U/L Procalcitonin ng/mL Urine Color Yellow Urine Appearance Clear Urine pH 5.0 (5.0-9.0) Ur Specific [place] 1.010 (1.005-1.025) Urine Protein Negative (Neg-Trace) mg/dL Urine Glucose (UA) Negative (Negative) mg/dL Urine Ketones Negative (Negative) mg/dL Urine Blood Trace H (Negative) Urine Nitrite Negative (Negative) Ur Leukocyte Esterase Negative (Negative) Urine RBC 0-2 (0-2) /HPF Urine WBC 0-5 (0-5) /HPF Ur Squamous Epith Cells 0-2 (0-2) /HPF Urine Bacteria None Seen (None Seen) Hyaline Casts 0-2 (0-2) /LPF Influenza Type A (PCR) (Negative) Influenza Type B (PCR) (Negative) RSV RNA Qual (PCR) (Negative) SARS-CoV-2 RNA (RT-PCR) (Negative) Independent Interpretation I performed an independent interpretation of an: EKG and Plain X-Ray (no pneumonia) Interpretation: Rate: 78 Rhythm: NSR [place]: left Normal P waves. Normal TERRY. Normal QRS complex. ST T wave : no Cheryl, artifact lateral leads qTC: 387 prior studies: no acute ischemia The study has been interpreted contemporaneously by me. . Radiology Impression Discussion of test interpretation with radiology: I have reviewed the radiologist's reading. Independent Historian Clinical information obtained from an independent historian. History obtained from or confirmed by: Other (daughter) External Record Review External record reviewed: Inpatient record and Outpatient record Critical Care Time Critical Care Time Critical Care Time: Yes Total Critical Care Time: 45 Attestation: repeat nebs, hypoxia intervention, review of records, admission I attest to this time spent taking care of the patient Discharge Plan Discharge Clinical Impression: Acute exacerbation of chronic obstructive airways disease, Acidosis, lactic Patient Disposition: Admitted As Inpatient Interventions: Admission Worksheet (ED) Last Done: 05/16/24 19:10 Discharge Date/Time: 05/16/24 19:54
[2024-05-16 13:17] LABS: MANUAL DIFF FLAG NO
[2024-05-16 13:20] LABS: Basophils Percent Auto 0.3 % (0-2); Eosinophils Absolute Auto 0.2 X10*3/uL (0.0-0.4); Hematocrit 39.3 % (37.0-47.0); Hemoglobin 13.3 g/dl (12.0-16.0); Imm Gran Abs Auto 0.04 X10*3/uL (0.00-0.03); Imm Gran Pct Auto 0.5 % (0.0-0.4); Lymphocytes Absolute Auto 3.1 X10*3/uL (1.2-4.9); Lymphocytes Percent Auto 38.7 % (20-40); Mean Corpuscular HGB Conc 33.8 g/dl (31.0-35.0); Mean Corpuscular Hemoglobin 30.7 pg (27.0-33.0); Mean Corpuscular Volume 90.8 fL (80.0-98.0); Mean Platelet Volume 10.4 fL (9.4-12.3); Monocytes Absolute Auto 0.6 X10*3/uL (0.1-1.2); Monocytes Percent Auto 7.9 % (2-11); Neutrophils Percent Auto 50.6 % (45-73); Platelet Count 184 X10*3/uL (160-400); Red Blood Count 4.33 X10*6/uL (4.20-5.50); Red Cell Distribution Width 14.5 % (11.0-16.0)
[2024-05-16 13:23] LABS: Venous Blood Gas Refer to POC result
[2024-05-16 13:24] LABS: VBG Base Excess 4.7 mmol/L; VBG HCO3 31 mmol/L (22-26); VBG pCO2 53 mmHg; VBG pH 7.37 (7.32-7.43); VBG pO2 47 mmHg
[2024-05-16] MEDS: Azithromycin 500 MG in 0.9 % Sodium Chloride 250 ML 125 MG IV (13:24)
[2024-05-16] MEDS: cefTRIAXone sodium 1 GM VIAL IVPUSH (13:24)
[2024-05-16 13:38] LABS: B Type Natriuretic Peptide < 10 pg/mL (<100)
[2024-05-16 13:43] LABS: Alanine Aminotransferase 31 U/L (0-31); Alkaline Phosphatase 66 U/L (39-117); Anion Gap 12 (12-20); Aspartate Amino Transferase 28 U/L (5-31); Bilirubin Direct 0.2 mg/dL (0.0-0.5); Bilirubin Total 0.4 mg/dL (0.0-1.0); Blood Urea Nitrogen 12 mg/dL (9-16); C Reactive Protein < 0.10 mg/dL (< or = 0.50); Calcium 9.1 mg/dL (8.4-10.2); Carbon Dioxide 26 mmol/L (22-29); Chloride 108 mmol/L (96-108); Creatinine Clr Calc Pharmacy 49.6; Estimated Glomerular Filt Rate > 60; Glucose Random 149 mg/dL (60-115); Lipase 21 U/L (8-78); Magnesium 3.2 mg/dL (1.6-2.6); Potassium 3.9 mmol/L (3.3-5.1); Sodium 142 mmol/L (135-145); Total Protein 7.4 g/dL (6.5-8.0)
[2024-05-16 13:44] LABS: Troponin-I High Sensitivity < 2.7 ng/L (<3.5-17.0)
[2024-05-16 13:58] LABS: Procalcitonin 0.05 ng/mL
[2024-05-16 14:01] LABS: Influenza A PCR NEGATIVE (Negative); Influenza B PCR NEGATIVE (Negative); Resp Syncy Virus RNA Qual PCR NEGATIVE (Negative); SARS COV2 PCR INHOUSE NEGATIVE (Negative)
[2024-05-16] MEDS: 0.9 % Sodium Chloride 500 ML IV (14:46)
[2024-05-16 15:00] LABS: Appearance Urine Clear; Color Urine Yellow; Glucose Urine UA Negative (Negative); Leukocyte Esterase Urine Negative (Negative); Nitrite Urine Negative (Negative); UMIC TRIGGER UACC YES; Urine Blood Trace (Negative); Urine Ketones Negative (Negative); Urine Protein Negative (Neg-Trace)
[2024-05-16 15:04] LABS: Bacteria Urine None Seen (None Seen); Hyaline Casts Urine 0-2 /LPF (0-2); RBC Urine 0-2 /HPF (0-2); Squamous Epithelial Cell Urine 0-2 /HPF (0-2); WBC Urine 0-5 /HPF (0-5)
[2024-05-16 15:15] LABS: Reflex Lactate? Lactic Acid Added
--- NOTE | 2024-05-16 15:21 | P.HPHOSP_ITS ---
History of Present Illness Date of Service: 05/16/24 Chief Complaint: Dyspnea A 78 years old lady with PMH of COPD, Fibromyalgia, HTN, DMII, dCHF, CAD among others presenting to the hospital with 3 days of fever, cough and dyspnea. Found hypoxic in ED. The patient reports feeling sick for the last 3 days with fever, chills, dyspnea, cough, SOB and feeling weak. She has not beed eating much and her energy level much lower than baseline. No chest pain, palpitations, nausea, vomiting, diarrhea or urinary symptoms. In ED found hypoxic of 88% on RA with loud wheezes and cough. CXR did not show any infiltrates. Admitted for further work up and treatment. Review of Systems 2 Review of Systems: reporting fever, chills and weakness No chest pain, palpitation shortness of breath and coughing with wheezing No abdominal pain, nausea or vomiting No urinary symptoms No wounds PMFSH Medical History Atherosclerotic cardiovascular disease PVD (peripheral vascular disease) Breast nodule Urinary incontinence Osteoporosis Dementia in Alzheimer's disease Chronic diastolic (congestive) heart failure Hypertension Vitamin D deficiency Carpal tunnel syndrome Cervical disc disorder CKD (chronic kidney disease), stage II TONY (generalized anxiety disorder) Vertigo CAD (coronary artery disease) GERD (gastroesophageal reflux disease) Migraine Diabetes mellitus Asthma Family History Mother Heart problem Arthritis Surgical History H/O hand surgery Hx of cardiac catheterization History of hernia repair History of left inguinal hernia repair History of right inguinal hernia repair History of cholecystectomy Hx of colonoscopy History of esophagogastroduodenoscopy (EGD) Social History Alcohol intake: never Patient Tobacco Use Status: Never used Tobacco Advance Directives: No Advance Directives Information Provided: Yes Meds Allergies Allergy/AdvReac Type Severity Reaction Status Date / Time pregabalin [From Lyrica] Allergy Intermediate Rash Verified 05/16/24 12:36 Home Medications ?Medication ?Instructions ?Recorded ?Confirmed ?Last Taken ?Type aspirin 81 mg tablet,delayed 81 mg PO QAM 10/15/22 02/01/24 Unknown History release qizhlbbfoc-vajkrucjiabwo-fhbkoqjk 1 tab PO Q6H PRN headache 10/15/22 02/01/24 Unknown History 50 mg-325 mg-40 mg tablet calcium carbonate 600 mg PO BID 10/15/22 02/01/24 Unknown History cyclobenzaprine 10 mg tablet 10 mg PO BEDTIME 10/15/22 02/01/24 Unknown History famotidine 40 mg tablet 40 mg PO BEDTIME 10/15/22 02/01/24 Unknown History metformin 500 mg tablet 500 mg PO TID 10/15/22 02/01/24 Unknown History montelukast 10 mg tablet 10 mg PO QAM 10/15/22 02/01/24 Unknown History multivitamin 1 tab PO QAM 10/15/22 02/01/24 Unknown History rosuvastatin 20 mg tablet 20 mg PO QAM 10/15/22 02/01/24 Unknown History sucralfate 100 mg/mL oral 10 ml PO Q6H 10/15/22 02/01/24 Unknown History suspension (Carafate) losartan 25 mg tablet 25 mg PO QAM 11/16/22 02/01/24 Unknown History venlafaxine 37.5 mg 37.5 mg PO DAILY 02/26/23 02/01/24 Unknown History capsule,extended release 24 hr diclofenac sodium 1 % topical gel topical 03/03/23 02/01/24 Unknown History quetiapine 25 mg tablet 25 mg PO BEDTIME 03/03/23 02/01/24 Unknown History gabapentin 300 mg capsule 300 mg PO TID 07/29/23 02/01/24 Unknown History celecoxib 100 mg capsule 100 mg PO BID 11/24/23 02/01/24 Unknown History memantine 5 mg tablet 5 mg PO BID 11/24/23 02/01/24 Unknown History oxycodone-acetaminophen 5 mg-325 tab PO 11/24/23 02/01/24 Unknown History mg tablet tramadol 50 mg tablet 50 mg PO BID PRN Pain 11/24/23 02/01/24 Unknown History estradiol 0.01% (0.1 mg/gram) vaginal 3XW 05/16/24 Unknown History vaginal cream fluticasone fur. 200 mcg-umeclid 1 ea inhalation DAILY 05/16/24 Unknown History 62.5 mcg-vilant 25 mcg inhalat.powder (Trelegy Ellipta) Physical Exam 2 Vital Signs and Narrative: Vital Signs: Last Vital Signs Temp 98.9 F 05/16/24 12:33 Pulse 83 05/16/24 14:27 Resp 15 05/16/24 14:27 BP 105/54 L 05/16/24 14:27 Pulse Ox 98 05/16/24 14:27 O2 Del Method Nasal Cannula 05/16/24 14:27 O2 Flow Rate 1 05/16/24 14:27 BMI result Body Mass Index 20.7 Const: Other: Constitutional : Awake, interactive, in mild resp distress using accessory muscles Neck : Normal inspection, Supple Cardiovascular : RRR, no JVP, no lower extremity edema Respiratory : decrease bilateral air entry, no crackles, bilateral expiratory wheezes, on O2 supplement Gastrointestinal: soft, lax, Normal bowel sounds, Non tender Skin : Warm, Dry Neurological : Alert & oriented x3, No focal deficit Results Labs 05/16/24 13:10 05/16/24 13:10 Labs: Laboratory Results - last 24 hr 05/16/24 05/16/24 05/16/24 13:09 13:10 13:17 MCV 90.8 MCH 30.7 MCHC 33.8 RDW 14.5 Plt Count 184 D MPV 10.4 Immature Gran % (Auto) 0.5 H Neut % (Auto) 50.6 Lymph % (Auto) 38.7 [place] % (Auto) 7.9 Eos % (Auto) 2.0 Baso % (Auto) 0.3 Lymph # (Auto) 3.1 [place] # (Auto) 0.6 Eos # (Auto) 0.2 Baso # (Auto) 0.0 Abs Immat Gran (auto) 0.04 H Absolute Neuts (auto) 4.0 Absolute Nucleated RBC 0.000 Nucleated RBC % (auto) 0.0 VBG pH 7.37 VBG pCO2 53 VBG pO2 47 VBG HCO3 31 H VBG O2 Saturation 72.0 VBG Base Excess 4.7 Anion Gap 12 Estim Creat Clear Calc 49.6 Estimated GFR > 60 Random Glucose 149 H Lactic Acid 3.0 H* Calcium 9.1 D Magnesium 3.2 H Total Bilirubin 0.4 Direct Bilirubin 0.2 AST 28 ALT 31 Alkaline Phosphatase 66 Troponin I High Sens < 2.7 C-Reactive Protein < 0.10 B-Natriuretic Peptide < 10 Total Protein 7.4 Albumin 4.0 Lipase 21 Procalcitonin 0.05 Urine Color Urine Appearance Urine pH Ur Specific [place] Urine Protein Urine Glucose (UA) Urine Ketones Urine Blood Urine Nitrite Ur Leukocyte Esterase Urine RBC Urine WBC Ur Squamous Epith Cells Urine Bacteria Hyaline Casts Influenza Type A (PCR) NEGATIVE Influenza Type B (PCR) NEGATIVE RSV RNA Qual (PCR) NEGATIVE SARS-CoV-2 RNA (RT-PCR) NEGATIVE 05/16/24 14:49 MCV MCH MCHC RDW Plt Count MPV Immature Gran % (Auto) Neut % (Auto) Lymph % (Auto) [place] % (Auto) Eos % (Auto) Baso % (Auto) Lymph # (Auto) [place] # (Auto) Eos # (Auto) Baso # (Auto) Abs Immat Gran (auto) Absolute Neuts (auto) Absolute Nucleated RBC Nucleated RBC % (auto) VBG pH VBG pCO2 VBG pO2 VBG HCO3 VBG O2 Saturation VBG Base Excess Anion Gap Estim Creat Clear Calc Estimated GFR Random Glucose Lactic Acid Calcium Magnesium Total Bilirubin Direct Bilirubin AST ALT Alkaline Phosphatase Troponin I High Sens C-Reactive Protein B-Natriuretic Peptide Total Protein Albumin Lipase Procalcitonin Urine Color Yellow Urine Appearance Clear Urine pH 5.0 Ur Specific [place] 1.010 Urine Protein Negative Urine Glucose (UA) Negative Urine Ketones Negative Urine Blood Trace H Urine Nitrite Negative Ur Leukocyte Esterase Negative Urine RBC 0-2 Urine WBC 0-5 Ur Squamous Epith Cells 0-2 Urine Bacteria None Seen Hyaline Casts 0-2 Influenza Type A (PCR) Influenza Type B (PCR) RSV RNA Qual (PCR) SARS-CoV-2 RNA (RT-PCR) Imaging Radiologist's Impressions: Impressions Chest X-Ray 05/16/24 12:50 IMPRESSION: Unremarkable chest examination. Electronically signed by: Luke Linares MD 05/16/2024 01:21 PM [facility] Assessment and Plan (1) Acidosis, lactic: Status: Acute (2) Acute exacerbation of chronic obstructive airways disease: Status: Acute (3) Acute respiratory failure with hypoxia: Status: Acute Plan A 78 years old lady with PMH of COPD, Fibromyalgia, HTN, DMII, dCHF, CAD among others presenting to the hospital with 3 days of fever, cough and dyspnea. Found hypoxic in ED. Acute hypoxic respiratory failure 2/2 COPD exacerbation likely from Viral illness complicated with lactic acidosis CXR not showing infiltrates cultures pending Lactic acidosis likely from nebulizer treatment not due to sepsis IV steroids Duonebs ATC, Albuterol PRN Wean O2 down as tolerated Continue home inhalers DMII Hold PO meds SSI , diabetic diet HTN Losartan Fibromyalgia Celebrix, Oxycodon PRN , Amitryptiline Gabapentin and Flexiril GERD PPI Mood disorder Seroquel bedtime DVT PPx Lovenox The patient will need 2 overnight hospital stay for treatment of hypoxia and respiratory failure pending weaning off O2 supplement Quality Stroke Does the patient have a stroke diagnosis?: No VTE Prior VTE?: No VTE Risk Level:: Medical - moderate - high VTE Device Contraindication: Treatment Not Indicated VTE Drug Contraindication: N/A - Med Ordered
[2024-05-16] MEDS: Albuterol/Iprat 2.5/0.5MG 3 ML AMPUL.NEB INHALE ×2 (16:04→19:33)
[2024-05-16 17:46] LABS: Reflex Lactate? 2 Y
[2024-05-16 18:11] LABS: Glucose, Whole Blood 295 mg/dL (60-115)
[2024-05-16] MEDS: methylPREDNISolone Sod Succ 125 MG/2 ML VIAL IVPUSH (18:11)
[2024-05-16] MEDS: Omeprazole 20 MG CAPSULE.DR PO (18:11)
[2024-05-16] MEDS: Enoxaparin Sodium 40 MG/0.4 ML SYRINGE SUBCUT (18:11)
[2024-05-16] MEDS: Insulin Lispro 100 UNIT/ML 3 ML VIAL SUBCUT ×2 (18:18→21:47)
[2024-05-16 19:01] LABS: ~Lactic Acid-LAB USE ONLY 4.4 mmol/L (0.5-2.0)
[2024-05-16 20:40] LABS: Glucose, Whole Blood 260 mg/dL (60-115)
--- NOTE | 2024-05-16 21:02 | PHA.MEDREC ---
Pharmacy Consult ? Medication Reconciliation Pharmacy has completed the medication reconciliation.
[2024-05-16] MEDS: QUEtiapine Fumarate 25 MG TABLET PO (21:47)
[2024-05-16] MEDS: Gabapentin 300 MG CAPSULE PO (21:47)
[2024-05-16] MEDS: Benzonatate 100 MG CAPSULE PO (21:47)
[2024-05-16] MEDS: Amitriptyline HCl 25 MG TABLET PO (21:47)
[2024-05-16] MEDS: Zolpidem Tartrate 5 MG TABLET PO (22:52)
[2024-05-16] MEDS: traMADoL HCL 50 MG TABLET 100 MG PO (22:52)
[2024-05-16] MEDS: 0.9 % Sodium Chloride Flush 3 ML SYRINGE IVFLUSH (22:56)
[2024-05-17] VITALS (7 sets, daily range): BP systolic 95–138; BP diastolic 55–71; PULSE 77–90; RESP 14–18; TEMP 36.2–37.1; O2SAT 92–95
[2024-05-17] MEDS: Omeprazole 20 MG CAPSULE.DR PO (05:52)
[2024-05-17 06:35] LABS: MANUAL DIFF FLAG NO
[2024-05-17 06:40] LABS: Basophils Percent Auto 0.1 % (0-2); Hemoglobin 11.5 g/dl (12.0-16.0); Imm Gran Abs Auto 0.04 X10*3/uL (0.00-0.03); Imm Gran Pct Auto 0.4 % (0.0-0.4); Lymphocytes Absolute Auto 1.2 X10*3/uL (1.2-4.9); Lymphocytes Percent Auto 12.5 % (20-40); Mean Corpuscular HGB Conc 33.8 g/dl (31.0-35.0); Mean Corpuscular Hemoglobin 30.4 pg (27.0-33.0); Mean Corpuscular Volume 89.9 fL (80.0-98.0); Mean Platelet Volume 10.7 fL (9.4-12.3); Monocytes Absolute Auto 0.3 X10*3/uL (0.1-1.2); Monocytes Percent Auto 2.7 % (2-11); Neutrophils Absolute Auto 7.9 x10*3/uL (2.0-8.3); Neutrophils Percent Auto 84.3 % (45-73); Platelet Count 208 X10*3/uL (160-400); Red Blood Count 3.78 X10*6/uL (4.20-5.50); Red Cell Distribution Width 14.3 % (11.0-16.0); White Blood Count 9.4 X10*3/uL (4.8-10.8)
[2024-05-17 06:55] LABS: Anion Gap 11 (12-20); Blood Urea Nitrogen 18 mg/dL (9-16); Calcium 8.8 mg/dL (8.4-10.2); Carbon Dioxide 26 mmol/L (22-29); Chloride 111 mmol/L (96-108); Creatinine Clr Calc Pharmacy 49.6; Estimated Glomerular Filt Rate > 60; Glucose Random 203 mg/dL (60-115); Potassium 4.9 mmol/L (3.3-5.1); Sodium 143 mmol/L (135-145)
[2024-05-17 07:38] LABS: Glucose, Whole Blood 186 mg/dL (60-115)
[2024-05-17] MEDS: Albuterol/Iprat 2.5/0.5MG 3 ML AMPUL.NEB INHALE ×3 (07:55→18:58)
[2024-05-17] MEDS: methylPREDNISolone Sod Succ 40 MG/ML VIAL IVPUSH ×2 (08:21→21:29)
[2024-05-17] MEDS: Insulin Lispro 100 UNIT/ML 3 ML VIAL SUBCUT ×3 (08:21→21:28)
[2024-05-17] MEDS: Gabapentin 300 MG CAPSULE PO ×3 (08:22→21:34)
[2024-05-17] MEDS: 0.9 % Sodium Chloride Flush 3 ML SYRINGE IVFLUSH ×3 (08:22→21:29)
[2024-05-17] MEDS: Benzonatate 100 MG CAPSULE PO ×2 (08:33→17:06)
--- NOTE | 2024-05-17 10:47 | P.PNIM_ITS ---
Subjective Subjective Date of Service: 05/17/24 Interval History: still very sob Physical Exam 2 Vital Signs: Vital Signs: Last Vital Signs Temp 97.1 F 05/17/24 07:35 Pulse 78 05/17/24 07:35 Resp 16 05/17/24 07:35 BP 100/60 05/17/24 08:00 Pulse Ox 92 05/17/24 07:35 O2 Del Method Room Air 05/17/24 07:35 O2 Flow Rate 1 05/16/24 14:27 BMI result Body Mass Index 20.7 General: AO X 3, no acute distress Resp: wheezing bilateral, no accessory muscles used CVS: S1,S2,RRR GI: soft, non tender, non distended Neuro: motor grossly intact, alert Psych: appropriate affect, appropriate insight Objective Data Active Medications Acetaminophen (Acetaminophen 325 Mg Tablet) 650 mg PO Q6H PRN PRN Reason: Pain, Mild 1-3,fever,headache Albuterol Sulfate (Albuterol Sulfate (0.083%) 2.5 Mg/3 Ml Vial.Neb) 2.5 mg INHALE Q4H PRN PRN Reason: Shortness of Breath/Wheezing Albuterol/Ipratropium (Albuterol/Iprat 2.5/0.5mg 3 Ml Ampul.Neb) 3 ml INHALE RQ4H WHILE AWAKE [facility] Last Admin: 05/17/24 07:55 Dose: 3 ml Documented By: LEO Amitriptyline HCl (Amitriptyline Hcl 25 Mg Tablet) 25 mg PO BEDTIME [facility] Last Admin: 05/16/24 21:47 Dose: 25 mg Documented By: RITA Aspirin (Aspirin Enteric Coated 81 Mg Tablet.Dr) 81 mg PO DAILY [facility] Benzonatate (Benzonatate 100 Mg Capsule) 100 mg PO TID PRN PRN Reason: Cough Last Admin: 05/17/24 08:33 Dose: 100 mg Documented By: BRITTNEY Calcium Carbonate (Calcium Carbonate 750 Mg Tab.Chew) 750 mg PO Q4H PRN PRN Reason: Heartburn Celecoxib (Celecoxib 100 Mg Capsule) 100 mg PO BID [facility] Last Admin: 05/17/24 08:22 Dose: Not Given Documented By: BRITTNEY Non-Admin Reason: Patient Refused Cyclobenzaprine HCl (Cyclobenzaprine Hcl 10 Mg Tablet) 10 mg PO BEDTIME [facility] Last Admin: 05/16/24 21:49 Dose: Not Given Documented By: RITA Non-Admin Reason: Patient Refused Cyclobenzaprine HCl (Cyclobenzaprine Hcl 10 Mg Tablet) 10 mg PO BEDTIME [facility] Enoxaparin Sodium (Enoxaparin Sodium 40 Mg/0.4 Ml Syringe) 40 mg SUBCUT Q24H [facility] Last Admin: 05/16/24 18:11 Dose: 40 mg Documented By: ANNEL Famotidine (Famotidine 20 Mg Tablet) 40 mg PO BEDTIME [facility] Gabapentin (Gabapentin 300 Mg Capsule) 300 mg PO TID [facility] Last Admin: 05/17/24 08:22 Dose: 300 mg Documented By: BRITTNEY Gabapentin (Gabapentin 300 Mg Capsule) 300 mg PO TID [facility] Azithromycin 500 mg/ Sodium (Chloride) 250 mls @ 125 mls/hr IV Q24H [facility] Insulin Human Lispro (Insulin Lispro 100 Unit/Ml 3 Ml Vial) 0 unit SUBCUT QIDACHS [facility]; Protocol Last Admin: 05/17/24 08:21 Dose: 2 unit Documented By: BRITTNEY Losartan Potassium (Losartan Potassium 25 Mg Tablet) 25 mg PO DAILY [facility]; Protocol Magnesium Hydroxide (Milk Of Magnesia 30 Ml Oral.Susp) 30 ml PO DAILY PRN PRN Reason: Constipation Melatonin (Melatonin 3 Mg Tablet) 6 mg PO BEDTIME PRN PRN Reason: Insomnia Memantine (Memantine Hcl 5 Mg Tablet) 5 mg PO BID [facility] Methylprednisolone Sodium Succinate (Methylprednisolone Sod Succ 40 Mg/Ml Vial) 40 mg IVPUSH Q12H [facility] Last Admin: 05/17/24 08:21 Dose: 40 mg Documented By: BRITTNEY Montelukast Sodium (Montelukast Sodium 10 Mg Tablet) 10 mg PO BEDTIME [facility] Multivitamins/Vitamin C (Multivitamin Tablet) 1 tab PO DAILY [facility] Non-Formulary Medication (Calcium Carbonate) 600 mg PO BID [facility] Non-Formulary Medication (Rosuvastatin) 20 mg PO BEDTIME [facility] Omeprazole (Omeprazole 20 Mg Capsule.Dr) 20 mg PO DAILY@0630 [facility] Last Admin: 05/17/24 05:52 Dose: 20 mg Documented By: RITA Ondansetron HCl (Ondansetron Hcl 4 Mg/2 Ml Vial) 4 mg IVPUSH Q8H PRN PRN Reason: Nausea and Vomiting Oxycodone HCl (Oxycodone Hcl Immed Release 5 Mg Tablet) 5 mg PO Q6H PRN PRN Reason: Pain, Severe (Pain Scale 7-10) Quetiapine Fumarate (Quetiapine Fumarate 25 Mg Tablet) 25 mg PO BEDTIME [facility] Last Admin: 05/16/24 21:47 Dose: 25 mg Documented By: RITA Sodium Chloride (0.9 % Sodium Chloride Flush 3 Ml Syringe) 3 ml IVFLUSH QSHIFT [facility] Last Admin: 05/17/24 08:22 Dose: 3 ml Documented By: BRITTNEY Tramadol HCl (Tramadol Hcl 50 Mg Tablet) 50 mg PO BID [facility] Vitamin D (Cholecalciferol (Vitamin D3) 25 Mcg Tablet) 50 mcg PO DAILY [facility] Zolpidem Tartrate (Zolpidem Tartrate 5 Mg Tablet) 5 mg PO BEDTIME PRN PRN Reason: Insomnia Last Admin: 05/16/24 22:52 Dose: 5 mg Documented By: RITA Labs 05/17/24 05:54 05/17/24 05:54 Labs: Laboratory Results - last 24 hr 05/16/24 05/16/24 05/16/24 13:09 13:10 13:17 MCV 90.8 MCH 30.7 MCHC 33.8 RDW 14.5 Plt Count 184 D MPV 10.4 Immature Gran % (Auto) 0.5 H Neut % (Auto) 50.6 Lymph % (Auto) 38.7 [place] % (Auto) 7.9 Eos % (Auto) 2.0 Baso % (Auto) 0.3 Lymph # (Auto) 3.1 [place] # (Auto) 0.6 Eos # (Auto) 0.2 Baso # (Auto) 0.0 Abs Immat Gran (auto) 0.04 H Absolute Neuts (auto) 4.0 Absolute Nucleated RBC 0.000 Nucleated RBC % (auto) 0.0 VBG pH 7.37 VBG pCO2 53 VBG pO2 47 VBG HCO3 31 H VBG O2 Saturation 72.0 VBG Base Excess 4.7 Anion Gap 12 Estim Creat Clear Calc 49.6 Estimated GFR > 60 POC Glucose Random Glucose 149 H Lactic Acid 3.0 H* Lactic Acid F/U @ 2Hr Lactic Acid F/U @ 4Hr Calcium 9.1 D Magnesium 3.2 H Total Bilirubin 0.4 Direct Bilirubin 0.2 AST 28 ALT 31 Alkaline Phosphatase 66 Troponin I High Sens < 2.7 C-Reactive Protein < 0.10 B-Natriuretic Peptide < 10 Total Protein 7.4 Albumin 4.0 Lipase 21 Procalcitonin 0.05 Urine Color Urine Appearance Urine pH Ur Specific [place] Urine Protein Urine Glucose (UA) Urine Ketones Urine Blood Urine Nitrite Ur Leukocyte Esterase Urine RBC Urine WBC Ur Squamous Epith Cells Urine Bacteria Hyaline Casts Influenza Type A (PCR) NEGATIVE Influenza Type B (PCR) NEGATIVE RSV RNA Qual (PCR) NEGATIVE SARS-CoV-2 RNA (RT-PCR) NEGATIVE 05/16/24 05/16/24 05/16/24 14:49 15:41 17:59 MCV MCH MCHC RDW Plt Count MPV Immature Gran % (Auto) Neut % (Auto) Lymph % (Auto) [place] % (Auto) Eos % (Auto) Baso % (Auto) Lymph # (Auto) [place] # (Auto) Eos # (Auto) Baso # (Auto) Abs Immat Gran (auto) Absolute Neuts (auto) Absolute Nucleated RBC Nucleated RBC % (auto) VBG pH VBG pCO2 VBG pO2 VBG HCO3 VBG O2 Saturation VBG Base Excess Anion Gap Estim Creat Clear Calc Estimated GFR POC Glucose 295 H Random Glucose Lactic Acid Lactic Acid F/U @ 2Hr 5.0 H* Lactic Acid F/U @ 4Hr Calcium Magnesium Total Bilirubin Direct Bilirubin AST ALT Alkaline Phosphatase Troponin I High Sens C-Reactive Protein B-Natriuretic Peptide Total Protein Albumin Lipase Procalcitonin Urine Color Yellow Urine Appearance Clear Urine pH 5.0 Ur Specific [place] 1.010 Urine Protein Negative Urine Glucose (UA) Negative Urine Ketones Negative Urine Blood Trace H Urine Nitrite Negative Ur Leukocyte Esterase Negative Urine RBC 0-2 Urine WBC 0-5 Ur Squamous Epith Cells 0-2 Urine Bacteria None Seen Hyaline Casts 0-2 Influenza Type A (PCR) Influenza Type B (PCR) RSV RNA Qual (PCR) SARS-CoV-2 RNA (RT-PCR) 05/16/24 05/16/24 05/17/24 18:10 20:35 05:54 MCV 89.9 MCH 30.4 MCHC 33.8 RDW 14.3 Plt Count 208 MPV 10.7 Immature Gran % (Auto) 0.4 Neut % (Auto) 84.3 H Lymph % (Auto) 12.5 L [place] % (Auto) 2.7 Eos % (Auto) 0.0 Baso % (Auto) 0.1 Lymph # (Auto) 1.2 [place] # (Auto) 0.3 Eos # (Auto) 0.0 Baso # (Auto) 0.0 Abs Immat Gran (auto) 0.04 H Absolute Neuts (auto) 7.9 Absolute Nucleated RBC 0.000 Nucleated RBC % (auto) 0.0 VBG pH VBG pCO2 VBG pO2 VBG HCO3 VBG O2 Saturation VBG Base Excess Anion Gap 11 L Estim Creat Clear Calc 49.6 Estimated GFR > 60 POC Glucose 260 H Random Glucose 203 H Lactic Acid Lactic Acid F/U @ 2Hr Lactic Acid F/U @ 4Hr 4.4 H* Calcium 8.8 Magnesium Total Bilirubin Direct Bilirubin AST ALT Alkaline Phosphatase Troponin I High Sens C-Reactive Protein B-Natriuretic Peptide Total Protein Albumin Lipase Procalcitonin Urine Color Urine Appearance Urine pH Ur Specific [place] Urine Protein Urine Glucose (UA) Urine Ketones Urine Blood Urine Nitrite Ur Leukocyte Esterase Urine RBC Urine WBC Ur Squamous Epith Cells Urine Bacteria Hyaline Casts Influenza Type A (PCR) Influenza Type B (PCR) RSV RNA Qual (PCR) SARS-CoV-2 RNA (RT-PCR) 05/17/24 07:35 MCV MCH MCHC RDW Plt Count MPV Immature Gran % (Auto) Neut % (Auto) Lymph % (Auto) [place] % (Auto) Eos % (Auto) Baso % (Auto) Lymph # (Auto) [place] # (Auto) Eos # (Auto) Baso # (Auto) Abs Immat Gran (auto) Absolute Neuts (auto) Absolute Nucleated RBC Nucleated RBC % (auto) VBG pH VBG pCO2 VBG pO2 VBG HCO3 VBG O2 Saturation VBG Base Excess Anion Gap Estim Creat Clear Calc Estimated GFR POC Glucose 186 H Random Glucose Lactic Acid Lactic Acid F/U @ 2Hr Lactic Acid F/U @ 4Hr Calcium Magnesium Total Bilirubin Direct Bilirubin AST ALT Alkaline Phosphatase Troponin I High Sens C-Reactive Protein B-Natriuretic Peptide Total Protein Albumin Lipase Procalcitonin Urine Color Urine Appearance Urine pH Ur Specific [place] Urine Protein Urine Glucose (UA) Urine Ketones Urine Blood Urine Nitrite Ur Leukocyte Esterase Urine RBC Urine WBC Ur Squamous Epith Cells Urine Bacteria Hyaline Casts Influenza Type A (PCR) Influenza Type B (PCR) RSV RNA Qual (PCR) SARS-CoV-2 RNA (RT-PCR) Microbiology Microbiology Results: Microbiology 05/16/24 12:52 Blood Culture - Final Blood - Venous Assessment and Plan (1) Asthma-COPD overlap syndrome: Status: Acute Plan 78F PMH COPD, fibromyalgia, hypertension, diabetes, chronic diastolic CHF, coronary artery disease presented with fever cough and dyspnea Acute hypoxic respiratory failure secondary to COPD with acute decompensation Steroids, DuoNebs, azithromycin Diabetes Sliding scale insulin Hypertension Continue losartan Fibromyalgia Continued neuropathic pain meds DVT prophylaxis with Lovenox Full Code reason for continued hospitalization: Still short of breath and hypoxic Quality Stroke Does the patient have a stroke diagnosis?: No VTE Prior VTE?: No VTE Risk Level:: Medical - moderate - high VTE Device Contraindication: Treatment Not Indicated VTE Drug Contraindication: N/A - Med Ordered
[2024-05-17] MEDS: traMADoL HCL 50 MG TABLET PO ×2 (11:22→21:35)
[2024-05-17] MEDS: Azithromycin 500 MG in 0.9 % Sodium Chloride 250 ML 125 MG IV (11:22)
[2024-05-17] MEDS: Losartan Potassium 25 MG TABLET PO (11:22)
[2024-05-17] MEDS: Aspirin Enteric Coated 81 MG TABLET.DR PO (11:22)
[2024-05-17] MEDS: Memantine HCl 5 MG TABLET PO ×2 (11:22→21:34)
[2024-05-17] MEDS: Cholecalciferol (Vitamin D3) 25 MCG TABLET 50 MCG PO (11:22)
[2024-05-17] MEDS: Multivitamin TABLET 1 TAB PO (11:23)
[2024-05-17 11:27] LABS: Glucose, Whole Blood 178 mg/dL (60-115)
--- NOTE | 2024-05-17 14:27 | MHC.CM.PN ---
pt lives w/dgter and her family pt has servies [employer] and goes to a daycare program dc plan is for pt to return home w/resumption of services pt has own transport home
[2024-05-17] MEDS: Enoxaparin Sodium 40 MG/0.4 ML SYRINGE SUBCUT (15:25)
[2024-05-17 16:03] LABS: Glucose, Whole Blood 141 mg/dL (60-115)
[2024-05-17 20:52] LABS: Glucose, Whole Blood 239 mg/dL (60-115)
[2024-05-17] MEDS: Montelukast Sodium 10 MG TABLET PO (21:31)
[2024-05-17] MEDS: Cyclobenzaprine HCl 10 MG TABLET PO (21:32)
[2024-05-17] MEDS: Atorvastatin Calcium 80 MG TABLET PO (21:32)
[2024-05-17] MEDS: Famotidine 20 MG TABLET 40 MG PO (21:33)
[2024-05-17] MEDS: Amitriptyline HCl 25 MG TABLET PO (21:34)
[2024-05-17] MEDS: QUEtiapine Fumarate 25 MG TABLET PO (21:35)
[2024-05-18] VITALS (9 sets, daily range): BP systolic 92–133; BP diastolic 59–70; PULSE 67–85; RESP 16–18; TEMP 36.5–36.9; O2SAT 90–95
[2024-05-18] MEDS: Omeprazole 20 MG CAPSULE.DR PO (05:35)
[2024-05-18 06:14] LABS: Hematocrit 32.9 % (37.0-47.0); Hemoglobin 11.4 g/dl (12.0-16.0); Mean Corpuscular HGB Conc 34.7 g/dl (31.0-35.0); Mean Corpuscular Hemoglobin 30.7 pg (27.0-33.0); Mean Corpuscular Volume 88.7 fL (80.0-98.0); Mean Platelet Volume 10.7 fL (9.4-12.3); Platelet Count 211 X10*3/uL (160-400); Red Blood Count 3.71 X10*6/uL (4.20-5.50); Red Cell Distribution Width 14.3 % (11.0-16.0); White Blood Count 12.7 X10*3/uL (4.8-10.8)
[2024-05-18 06:20] LABS: Anion Gap 12 (12-20); Blood Urea Nitrogen 17 mg/dL (9-16); Calcium 8.8 mg/dL (8.4-10.2); Carbon Dioxide 26 mmol/L (22-29); Chloride 109 mmol/L (96-108); Creatinine Clr Calc Pharmacy 50.2; Estimated Glomerular Filt Rate > 60; Glucose Random 238 mg/dL (60-115); Potassium 4.7 mmol/L (3.3-5.1); Sodium 142 mmol/L (135-145)
[2024-05-18 07:11] LABS: Glucose, Whole Blood 203 mg/dL (60-115)
[2024-05-18] MEDS: Insulin Lispro 100 UNIT/ML 3 ML VIAL SUBCUT ×4 (07:42→21:10)
[2024-05-18] MEDS: 0.9 % Sodium Chloride Flush 3 ML SYRINGE IVFLUSH ×3 (07:43→21:12)
[2024-05-18] MEDS: Albuterol/Iprat 2.5/0.5MG 3 ML AMPUL.NEB INHALE ×4 (07:43→19:19)
[2024-05-18] MEDS: Cholecalciferol (Vitamin D3) 25 MCG TABLET 50 MCG PO (07:43)
[2024-05-18] MEDS: Memantine HCl 5 MG TABLET PO ×2 (07:43→21:16)
[2024-05-18] MEDS: Gabapentin 300 MG CAPSULE PO ×3 (07:43→21:16)
[2024-05-18] MEDS: Multivitamin TABLET 1 TAB PO (07:43)
[2024-05-18] MEDS: Aspirin Enteric Coated 81 MG TABLET.DR PO (07:43)
[2024-05-18] MEDS: Losartan Potassium 25 MG TABLET PO (07:43)
[2024-05-18] MEDS: methylPREDNISolone Sod Succ 40 MG/ML VIAL IVPUSH ×2 (07:44→21:11)
[2024-05-18] MEDS: traMADoL HCL 50 MG TABLET PO ×2 (07:44→21:14)
--- NOTE | 2024-05-18 08:09 | HO.PM.IMPN ---
Subjective Subjective Date of Service: 05/18/24 Interval History: Slightly improved Physical Exam Vital Signs: Vital Signs: Last Vital Signs Temp 97.7 F 05/18/24 07:09 Pulse 67 05/18/24 07:43 Resp 18 05/18/24 07:43 BP 92/70 05/18/24 07:39 Pulse Ox 93 05/18/24 07:39 O2 Del Method Room Air 05/18/24 07:09 O2 Flow Rate 1 05/16/24 14:27 BMI result Body Mass Index 20.7 General: AO X 3, no acute distress Resp: wheezing bilateral, no accessory muscles used CVS: S1,S2,RRR GI: soft, non tender, non distended Neuro: motor grossly intact, alert Psych: appropriate affect, appropriate insight Objective Data Active Medications Acetaminophen (Acetaminophen 325 Mg Tablet) 650 mg PO Q6H PRN PRN Reason: Pain, Mild 1-3,fever,headache Albuterol Sulfate (Albuterol Sulfate (0.083%) 2.5 Mg/3 Ml Vial.Neb) 2.5 mg INHALE Q4H PRN PRN Reason: Shortness of Breath/Wheezing Albuterol/Ipratropium (Albuterol/Iprat 2.5/0.5mg 3 Ml Ampul.Neb) 3 ml INHALE RQ4H WHILE AWAKE [facility] Last Admin: 05/18/24 07:43 Dose: 3 ml Documented By: YULIET Amitriptyline HCl (Amitriptyline Hcl 25 Mg Tablet) 25 mg PO BEDTIME [facility] Last Admin: 05/17/24 21:34 Dose: 25 mg Documented By: ARNALDO Aspirin (Aspirin Enteric Coated 81 Mg Tablet.) 81 mg PO DAILY [facility] Last Admin: 05/18/24 07:43 Dose: 81 mg Documented By: BRITTNEY Atorvastatin Calcium (Atorvastatin Calcium 80 Mg Tablet) 80 mg PO BEDTIME [facility] Last Admin: 05/17/24 21:32 Dose: 80 mg Documented By: ARNALDO Benzonatate (Benzonatate 100 Mg Capsule) 100 mg PO TID PRN PRN Reason: Cough Last Admin: 05/17/24 17:06 Dose: 100 mg Documented By: BRITTNEY Calcium Carbonate (Calcium Carbonate 750 Mg Tab.Chew) 750 mg PO Q4H PRN PRN Reason: Heartburn Celecoxib (Celecoxib 100 Mg Capsule) 100 mg PO BID [facility] Last Admin: 05/18/24 07:44 Dose: Not Given Documented By: BRITTNEY Non-Admin Reason: Patient Refused Cyclobenzaprine HCl (Cyclobenzaprine Hcl 10 Mg Tablet) 10 mg PO BEDTIME [facility] Last Admin: 05/17/24 21:32 Dose: 10 mg Documented By: ARNALDO Enoxaparin Sodium (Enoxaparin Sodium 40 Mg/0.4 Ml Syringe) 40 mg SUBCUT Q24H [facility] Last Admin: 05/17/24 15:25 Dose: 40 mg Documented By: BRITTNEY Famotidine (Famotidine 20 Mg Tablet) 40 mg PO BEDTIME [facility] Last Admin: 05/17/24 21:33 Dose: 40 mg Documented By: ARNALDO Gabapentin (Gabapentin 300 Mg Capsule) 300 mg PO TID [facility] Last Admin: 05/18/24 07:43 Dose: 300 mg Documented By: BRITTNEY Azithromycin 500 mg/ Sodium (Chloride) 250 mls @ 125 mls/hr IV Q24H [facility] Last Infusion: 05/17/24 13:55 Dose: Infused Documented By: BRITTNEY Insulin Human Lispro (Insulin Lispro 100 Unit/Ml 3 Ml Vial) 0 unit SUBCUT QIDACHS [facility]; Protocol Last Admin: 05/18/24 07:42 Dose: 4 unit Documented By: BRITTNEY Losartan Potassium (Losartan Potassium 25 Mg Tablet) 25 mg PO DAILY [facility]; Protocol Last Admin: 05/18/24 07:43 Dose: 25 mg Documented By: BRITTNEY Magnesium Hydroxide (Milk Of Magnesia 30 Ml Oral.Susp) 30 ml PO DAILY PRN PRN Reason: Constipation Melatonin (Melatonin 3 Mg Tablet) 6 mg PO BEDTIME PRN PRN Reason: Insomnia Memantine (Memantine Hcl 5 Mg Tablet) 5 mg PO BID [facility] Last Admin: 05/18/24 07:43 Dose: 5 mg Documented By: BRITTNEY Methylprednisolone Sodium Succinate (Methylprednisolone Sod Succ 40 Mg/Ml Vial) 40 mg IVPUSH Q12H [facility] Last Admin: 05/18/24 07:44 Dose: 40 mg Documented By: BRITTNEY Montelukast Sodium (Montelukast Sodium 10 Mg Tablet) 10 mg PO BEDTIME [facility] Last Admin: 05/17/24 21:31 Dose: 10 mg Documented By: ARNALDO Multivitamins/Vitamin C (Multivitamin Tablet) 1 tab PO DAILY [facility] Last Admin: 05/18/24 07:43 Dose: 1 tab Documented By: BRITTNEY Omeprazole (Omeprazole 20 Mg Capsule.Dr) 20 mg PO DAILY@0630 [facility] Last Admin: 05/18/24 05:35 Dose: 20 mg Documented By: ARNALDO Ondansetron HCl (Ondansetron Hcl 4 Mg/2 Ml Vial) 4 mg IVPUSH Q8H PRN PRN Reason: Nausea and Vomiting Oxycodone HCl (Oxycodone Hcl Immed Release 5 Mg Tablet) 5 mg PO Q6H PRN PRN Reason: Pain, Severe (Pain Scale 7-10) Quetiapine Fumarate (Quetiapine Fumarate 25 Mg Tablet) 25 mg PO BEDTIME [facility] Last Admin: 05/17/24 21:35 Dose: 25 mg Documented By: ARNALDO Sodium Chloride (0.9 % Sodium Chloride Flush 3 Ml Syringe) 3 ml IVFLUSH QSHIFT [facility] Last Admin: 05/18/24 07:43 Dose: 3 ml Documented By: BRITTNEY Tramadol HCl (Tramadol Hcl 50 Mg Tablet) 50 mg PO BID [facility] Last Admin: 05/18/24 07:44 Dose: 50 mg Documented By: BRITTNEY Vitamin D (Cholecalciferol (Vitamin D3) 25 Mcg Tablet) 50 mcg PO DAILY [facility] Last Admin: 05/18/24 07:43 Dose: 50 mcg Documented By: BRITTNEY Zolpidem Tartrate (Zolpidem Tartrate 5 Mg Tablet) 5 mg PO BEDTIME PRN PRN Reason: Insomnia Last Admin: 05/16/24 22:52 Dose: 5 mg Documented By: RITA Labs 05/18/24 05:33 05/18/24 05:33 Labs: Laboratory Results - last 24 hr 05/17/24 05/17/24 05/17/24 11:21 15:59 20:48 MCV MCH MCHC RDW Plt Count MPV Absolute Nucleated RBC Nucleated RBC % (auto) Anion Gap Estim Creat Clear Calc Estimated GFR POC Glucose 178 H 141 H 239 H Random Glucose Calcium 05/18/24 05/18/24 05:33 07:07 MCV 88.7 MCH 30.7 MCHC 34.7 RDW 14.3 Plt Count 211 MPV 10.7 Absolute Nucleated RBC 0.000 Nucleated RBC % (auto) 0.0 Anion Gap 12 Estim Creat Clear Calc 50.2 Estimated GFR > 60 POC Glucose 203 H Random Glucose 238 H Calcium 8.8 Microbiology Microbiology Results: Microbiology 05/16/24 13:09 Blood Culture - Preliminary Blood - Venous No growth after 24 hours. Assessment and Plan (1) Asthma-COPD overlap syndrome: Status: Acute Plan 78F PMH COPD, fibromyalgia, hypertension, diabetes, chronic diastolic CHF, coronary artery disease presented with fever cough and dyspnea Acute hypoxic respiratory failure secondary to COPD with acute decompensation Steroids, DuoNebs, azithromycin, now on room air Diabetes Sliding scale insulin Hypertension Continue losartan Fibromyalgia Continued neuropathic pain meds DVT prophylaxis with Lovenox Full Code reason for continued hospitalization: Still short of breath and wheezing Quality Stroke Does the patient have a stroke diagnosis?: No VTE Prior VTE?: No VTE Risk Level:: Medical - moderate - high VTE Device Contraindication: Treatment Not Indicated VTE Drug Contraindication: N/A - Med Ordered
--- NOTE | 2024-05-18 09:09 | P.CDIM_ITS ---
PROVIDER RESPONSE TEXT: To clarify, the appropriate diagnosis supported by the clinical indicators: Acute QUERY TEXT: PHYSICIAN'S DOCUMENTATION REQUEST Date of Query: 05/18/2024 08:59 AM EST Patient Name: Ed Holguin Admit Date: 05/16/2024 Dear Leo Manzano MD, A review of the medical record indicates additional documentation may be needed. Please review below and update the documentation accordingly. Clinical Indicators: H&P dated 05/16 - Acute hypoxic respiratory failure 2/2 COPD exacerbation likely from viral illness c omplicated with lactic acidosis. Lactic acidosis likely from nebulizer treatment not sepsis. LA 3.0 Clarify which of the following accurately represents the acuity of the Lactic acidosis: Possible options might include: Acute Acute on chronic Chronic Other (explain) Clinically unable to determine (explain) Thank you, Kaitlin Rivas, CCS, CDIS Use of terms such as suspected, likely, concern for, or probable (associated with a specific diagnosi s that is being evaluated, monitored, or treated as if it exists) are acceptable and can be coded in the inpatient se tting, when documented at the time of discharge. Please use your independent medical judgment in providing your response. THIS QUERY IS PART OF THE PERMANENT MEDICAL RECORD
[2024-05-18 11:13] LABS: Glucose, Whole Blood 255 mg/dL (60-115)
[2024-05-18] MEDS: Enoxaparin Sodium 40 MG/0.4 ML SYRINGE SUBCUT (14:31)
[2024-05-18] MEDS: Azithromycin 500 MG in 0.9 % Sodium Chloride 250 ML 125 MG IV (14:31)
[2024-05-18] MEDS: Benzonatate 100 MG CAPSULE PO (16:12)
[2024-05-18 16:57] LABS: Glucose, Whole Blood 228 mg/dL (60-115)
[2024-05-18 20:58] LABS: Glucose, Whole Blood 215 mg/dL (60-115)
[2024-05-18] MEDS: Famotidine 20 MG TABLET 40 MG PO (21:13)
[2024-05-18] MEDS: QUEtiapine Fumarate 25 MG TABLET PO (21:14)
[2024-05-18] MEDS: Montelukast Sodium 10 MG TABLET PO (21:14)
[2024-05-18] MEDS: Cyclobenzaprine HCl 10 MG TABLET PO (21:15)
[2024-05-18] MEDS: Amitriptyline HCl 25 MG TABLET PO (21:15)
[2024-05-18] MEDS: Atorvastatin Calcium 80 MG TABLET PO (21:15)
[2024-05-19 04:00] VITALS: BP 123/69; PULSE 76; RESP 16; TEMP 36.9; O2SAT 96
[2024-05-19] MEDS: Omeprazole 20 MG CAPSULE.DR PO (06:07)
[2024-05-19 07:16] LABS: Glucose, Whole Blood 200 mg/dL (60-115)
[2024-05-19] MEDS: methylPREDNISolone Sod Succ 40 MG/ML VIAL IVPUSH (07:20)
[2024-05-19] MEDS: traMADoL HCL 50 MG TABLET PO (07:20)
[2024-05-19] MEDS: Aspirin Enteric Coated 81 MG TABLET.DR PO (07:20)
[2024-05-19] MEDS: Losartan Potassium 25 MG TABLET PO (07:20)
[2024-05-19] MEDS: Insulin Lispro 100 UNIT/ML 3 ML VIAL SUBCUT ×2 (07:21→11:19)
[2024-05-19] MEDS: Gabapentin 300 MG CAPSULE PO (07:21)
[2024-05-19] MEDS: Memantine HCl 5 MG TABLET PO (07:21)
[2024-05-19] MEDS: Multivitamin TABLET 1 TAB PO (07:21)
[2024-05-19] MEDS: 0.9 % Sodium Chloride Flush 3 ML SYRINGE IVFLUSH (07:21)
[2024-05-19 07:31] VITALS: BP 126/58; PULSE 70; RESP 16; TEMP 36.3; O2SAT 92
[2024-05-19] MEDS: Albuterol/Iprat 2.5/0.5MG 3 ML AMPUL.NEB INHALE ×2 (08:23→11:45)
[2024-05-19 08:24] VITALS: PULSE 80; RESP 16; O2SAT 95
[2024-05-19] MEDS: Cholecalciferol (Vitamin D3) 25 MCG TABLET 50 MCG PO (09:07)
--- NOTE | 2024-05-19 09:25 | PM.DS ---
DS: Providers Provider Date of Service: 05/19/24 Date of admission: 05/16/24 15:13 Date of discharge: 05/19/24 Primary care physician: Edwige Headley MD DS: Diagnosis Discharge Diagnosis (1) Asthma-COPD overlap syndrome: Status: Acute DS: Summary Hospital Course Hospital Course: from initial hpi: 78 years old lady with PMH of COPD, Fibromyalgia, HTN, DMII, dCHF, CAD among others presenting to the hospital with 3 days of fever, cough and dyspnea. Found hypoxic in ED. The patient reports feeling sick for the last 3 days with fever, chills, dyspnea, cough, SOB and feeling weak. She has not beed eating much and her energy level much lower than baseline. No chest pain, palpitations, nausea, vomiting, diarrhea or urinary symptoms. In ED found hypoxic of 88% on RA with loud wheezes and cough. CXR did not show any infiltrates. Admitted for further work up and treatment. hospital course: Patient was admitted for acute hypoxic respiratory failure secondary to COPD with acute decompensation likely due to unspecified viral illness. Was treated with steroids, DuoNebs, azithromycin and was transitioned to room air. Symptoms significantly improved. Patient is no longer wheezy. For diabetes was continued on insulin sliding scale. For hypertension continue losartan. For fibromyalgia was continued on neuropathic pain meds. Patient will be discharged home on 5 more days of prednisone and azithromycin. Time Attestation Discharge Coordination Time (in mins): 33 Quality: Safe Use of Opioids Does Pt have an Active Cancer Diagnosis on the Problem List?: No Quality: Stroke Does the patient have a stroke diagnosis?: No Physical Exam Vital Signs: Vital Signs: Last Vital Signs Temp 97.4 F 05/19/24 07:31 Pulse 80 05/19/24 08:24 Resp 16 05/19/24 08:24 BP 126/58 L 05/19/24 07:31 Pulse Ox 92 05/19/24 07:31 O2 Del Method Room Air 05/19/24 07:31 O2 Flow Rate 1 05/16/24 14:27 BMI result Body Mass Index 20.7 General: AO X 3, no acute distress Resp: CTA bilateral, no accessory muscles used CVS: S1,S2,RRR GI: soft, non tender, non distended Neuro: motor grossly intact, alert Psych: appropriate affect, appropriate insight DS: Data Data Completed and Pending Labs on day of discharge: Laboratory Results - last 24 hr 05/18/24 05/18/24 05/18/24 11:06 16:53 20:53 POC Glucose 255 H 228 H 215 H 05/19/24 07:09 POC Glucose 200 H Preliminary micro results at discharge 05/16/24 13:09 Blood Culture - Preliminary Blood - Venous No growth after 48 hours. Discharge Plan Discharge Anticipated Discharge Date/Time: 05/19/24 09:20 Patient Disposition: Home, Self-Care Discharge Diagnosis: COPD and asthma Referrals: Edwige Headley MD [Primary Care Provider] - 1 Week Discharge Medications: New prednisone 20 mg tablet 40 mg PO DAILY Qty: 10 0RF azithromycin 500 mg tablet 500 mg PO DAILY 5 Days Qty: 5 0RF Continued cholecalciferol (vitamin D3) [Vitamin D3] 50 mcg (2,000 unit) capsule 50 mcg PO DAILY Qty: 90 0RF estradiol 0.01 % (0.1 mg/gram) cream 1 appl vaginal MOWEFR Trelegy Ellipta 200-62.5-25 mcg blister with device 1 inh inhalation DAILY albuterol sulfate 90 mcg/actuation HFA aerosol inhaler 2 puff inhalation Q4H PRN (Reason: shortness of breath or wheezing) losartan 25 mg tablet 25 mg PO DAILY diclofenac sodium 1 % gel 2 g topical TID memantine 5 mg tablet 5 mg PO BID celecoxib 100 mg capsule 100 mg PO BID tramadol 50 mg tablet 50 mg PO BID PRN (Reason: Pain) levalbuterol HCl 1.25 mg/3 mL solution for nebulization 1.25 mg inhalation Q4-6H PRN (Reason: shortness of breath or wheezing) Qty: 90 3RF rosuvastatin 20 mg tablet 20 mg PO BEDTIME montelukast 10 mg tablet 10 mg PO BEDTIME calcium carbonate 600 mg calcium (1,500 mg) tablet 600 mg PO BID aspirin 81 mg tablet,delayed release (DR/EC) 81 mg PO DAILY famotidine 40 mg tablet 40 mg PO BEDTIME sucralfate [Carafate] 100 mg/mL suspension 10 ml PO Q8H PRN (Reason: gi upset) metformin 500 mg tablet 500 mg PO TID cyclobenzaprine 10 mg tablet 10 mg PO BEDTIME multivitamin Tablet 1 tab PO DAILY gabapentin 300 mg capsule 300 mg PO TID Discharge Orders: Discharge Order (Routine); Ordered 05/19/24 Ordered By: Leo Manzano Diet: Advance to usual diet Activity on Discharge: As tolerated Stand Alone Forms: Patient Portal Discharge page Print Language: Ukrainian Care Plan Goals: recovery Health Concerns: copd Plan of Treatment: 5 more days prednisone, azithro Assessment: see above
--- NOTE | 2024-05-19 09:25 | MHC.CM.PN ---
pt dcd home with family ,pt dcd home self care
[2024-05-19 11:15] LABS: Glucose, Whole Blood 206 mg/dL (60-115)
[2024-05-19] MEDS: Azithromycin 500 MG in 0.9 % Sodium Chloride 250 ML 125 MG IV (11:35)
[2024-05-19 11:46] VITALS: PULSE 83; RESP 16; O2SAT 91
[2024-05-19 14:37] LABS: Glucose, Whole Blood 204 mg/dL (60-115)
== END 2024-05-19 14:51 | disposition home or self-care (01) | DRG 190 ==
LOC: HO.ED 13:27 → HO.EDOVER 15:25 → HO.S3 19:05
PROVIDERS: Admitting Provider Student in an Organized Health Care Education/Training Program; Emergency Provider Emergency Medicine; PCP Family Medicine; Visit Provider Internal Medicine
DX: J44.1 Chronic obstructive pulmonary disease with (acute) exacerbation (principal); J96.01 Acute respiratory failure with hypoxia; I13.0 Hypertensive heart and chronic kidney disease with heart failure and stage 1 through stage 4 chronic kidney disease, or unspecified chronic kidney disease; I50.32 Chronic diastolic (congestive) heart failure; E87.21 Acute metabolic acidosis; I25.10 Atherosclerotic heart disease of native coronary artery without angina pectoris; M79.7 Fibromyalgia; K21.9 Gastro-esophageal reflux disease without esophagitis; F39 Unspecified mood [affective] disorder; G30.9 Alzheimer's disease, unspecified; B34.9 Viral infection, unspecified; F02.80 Dementia in other diseases classified elsewhere, unspecified severity, without behavioral disturbance, psychotic disturbance, mood disturbance, and anxiety; E11.22 Type 2 diabetes mellitus with diabetic chronic kidney disease; N18.2 Chronic kidney disease, stage 2 (mild); Z20.822 Contact with and (suspected) exposure to COVID-19; Z79.82 Long term (current) use of aspirin; Z79.84 Long term (current) use of oral hypoglycemic drugs; Z79.899 Other long term (current) drug therapy
CPT/HCPCS: 0241U; 36415; 71045; 80048; 80076; 81001; 81003; 82803; 82947; 83605; 83690; 83735; 83880; 84145; 84484; 85025; 85027; 86140; 87040; 93005; 94640; 97162; 99285; J0456; J0696; J1650; J2919

== ENCOUNTER → 2024-05-16 12:44 | Outpatient (BNV) | payer MEDICARE, SELFPAY | PROVIDERS: Admitting Provider Student in an Organized Health Care Education/Training Program; Emergency Provider Emergency Medicine; PCP Family Medicine; Visit Provider Internal Medicine Cardiovascular Disease | DX: R94.31 Abnormal electrocardiogram [ECG] [EKG] (principal) | CPT/HCPCS: 93010 ==

== ENCOUNTER → 2024-05-16 12:44 | Outpatient (BNV) | payer MEDICARE, SELFPAY | PROVIDERS: Emergency Provider Emergency Medicine; PCP Family Medicine; Visit Provider Radiology Diagnostic Radiology | DX: R05.9 Cough, unspecified (principal); R50.9 Fever, unspecified | CPT/HCPCS: 71045 ==

== ENCOUNTER → 2024-05-16 15:13 | Outpatient (BNV) | payer MEDICARE, SELFPAY | PROVIDERS: Admitting Provider Student in an Organized Health Care Education/Training Program; Emergency Provider Emergency Medicine; PCP Family Medicine; Visit Provider Student in an Organized Health Care Education/Training Program | DX: J96.01 Acute respiratory failure with hypoxia (principal); J44.1 Chronic obstructive pulmonary disease with (acute) exacerbation | CPT/HCPCS: 99223; 99232; 99233; 99239 ==

== ENCOUNTER 2024-05-30 13:41 | Outpatient (REF) | payer MEDICARE, SELFPAY | END 2024-05-30 13:42 | disposition home or self-care (01) | LOC: HO.CHCLDS 13:41 | PROVIDERS: Visit Provider Internal Medicine | DX: Z13.89 Encounter for screening for other disorder (principal) ==

== ENCOUNTER 2024-05-31 12:42 | Outpatient (REF) | payer MEDICARE, SELFPAY ==
[2024-05-31 14:45] LABS: Magnesium 1.8 mg/dL (1.6-2.6)
[2024-05-31 15:01] LABS: TSH reflex Free T4 1.02 uIU/mL (0.32-4.0); Vitamin D 25-OH Total 33.6 ng/mL (>30)
[2024-05-31 15:13] LABS: Folate 11.9 ng/mL (> or = 4.0); Vitamin B12 944 pg/mL (200-900)
[2024-06-07 14:48] LABS: Vitamin B1 41 nmol/L (8-30)
== END 2024-05-31 12:43 | disposition home or self-care (01) ==
LOC: HO.CHCLDS 12:42
PROVIDERS: Visit Provider Internal Medicine
DX: J44.9 Chronic obstructive pulmonary disease, unspecified (principal); I73.00 Raynaud's syndrome without gangrene; R53.83 Other fatigue
CPT/HCPCS: 36415; 82306; 82607; 82746; 83735; 84425; 84443

== ENCOUNTER 2024-07-07 09:15 | Outpatient (REF) | payer OTHER, SELFPAY ==
--- OUTSIDE RECORDS SUMMARY | 2024-07-07 09:48 | XMS_ITS | Clinical Summary ---
Author Organization [employer] Address [address] [facility] [address] [place] [address] Care Team Providers Care Bridge Builder Name Role Phone Edwige Headley MD Primary Care Provider [phone] Allergies Active Allergy Reactions Criticality Noted Date Comments Pregabalin 10/18/2023 Medications * This document contains information received from the source organization and may not represent a complete record from that organization. Blood Pressure kit 1 Units in the morning. 1 kit 023 Active VITAMIN E PO Take 1 tablet by mouth in the morning. Active Blood Glucose Monitoring Suppl (ONE TOUCH ULTRA 2) w/Device kit 1 kit in the morning. Please dispense glucose monitor that is covered by patients insurances. Substitute as needed. 1 kit 023 Active Lancet Devices (Autolet) lancing device 1 each by Other route in the morning. Please dispense glucose monitor that is covered by patients insurances. Substitute as needed. 1 each 023 Active Lancets (OneTouch Delica Plus [id number]) misc 1 Units in the morning. Please dispense glucose monitor that is covered by patients insurances. Substitute as needed. 100 each 11 023 Active omeprazole (PriLOSEC) [address] capsule TAKE 1 CAPSULE BY MOUTH ONCE DAILY FOR 4 WEEKS 023 Active cetirizine (ZyrTEC) 10 MG tablet Take 1 tablet (10 mg) by mouth in the morning. 30 tablet 023 Active hydrocortisone 1 % ointment Apply topically 2 times daily. 30 g 023 Active estradiol (Estrace) 0.1 MG/GM vaginal cream Insert 1 g into the vagina in the morning. 42.5 g 023 Active albuterol 108 (90 Base) MCG/ACT inhalerIndicati ons:Moderate persistent asthma with acute exacerbation Inhale 2 puffs every 4 (four) hours if needed for wheezing. 18 g 5 024 Active albuterol (2.5 MG/3ML) 0.083% nebulizer solutionIndicat ions:Moderate persistent asthma with acute exacerbation Take 3 mL (2.5 mg) by nebulization every 4 (four) hours if needed for wheezing. 75 mL 3 024 Active D3 Super Strength 50 MCG (2000 UT) capsule TAKE 1 CAPSULE BY MOUTH EVERY DAY FOR 3 MONTHS Active levalbuterol (Xopenex) 1.25 MG/3ML nebulizer solution INHALE 1 AMPULE USING A NEBULIZER EVERY 4 TO 6 HOURS NEEDED SHORTNESS OF BREATH OR FOR WHEEZING Active Trelegy Ellipta 200-62.5-25 MCG/ACT aerosol powder Inhale 1 puff Once per day. Active glucose blood test strip Use as directed 3 times daily 100 each 11 2024 Active losartan (Cozaar) 25 MG tablet TAKE 1 TABLET BY MOUTH EVERY MORNING 90 tablet 1 Active calcium carbonate 1500 (600 Ca) MG tablet TAKE 1 TABLET BY MOUTH TWICE DAILY IN THE MORNING AND IN THE EVENING WITH FOOD 180 tablet 1 Active rosuvastatin (Crestor) 20 MG tablet TAKE 1 TABLET BY MOUTH AT BEDTIME 90 tablet Active Multiple Vitamin (Multivitamin) tablet TAKE 1 TABLET BY MOUTH EVERY MORNING 90 tablet 1 Active Aspirin Low Dose 81 MG EC tablet TAKE 1 TABLET BY MOUTH EVERY MORNING 90 tablet 1 Active montelukast (Singulair) 10 MG tablet TAKE 1 TABLET BY MOUTH AT BEDTIME 90 tablet Active metFORMIN (Glucophage) 500 MG tablet TAKE 1 TABLET BY MOUTH THREE TIMES DAILY IN THE MORNING, AT NOON, AND IN THE EVENING 270 tablet 1 Active Diclofenac Sodium 1 % gel APPLY 2 GRAMS TOPICALLY TO AFFECTED AREA(S) THREE TIMES DAILY DIRECTED 350 g Active lidocaine (Lidoderm) 5 % patch APPLY 1 PATCH TOPICALLY LEAVE ON FOR 12 HOURS AND OFF FOR 12 HOURS DIRECTED BY 30 patch 5 Active sucralfate (Carafate) 1 GM/10ML suspension TAKE 10 ML BY MOUTH EVERY 8 HOURS NEEDED WITH FOOD 900 mL 1 024 Active amLODIPine (Norvasc) 5 MG tabletIndicatio ns:Raynaud's phenomenon without gangrene Take 1 tablet (5 mg) by mouth Once per day. 30 tablet 11 025 2025 Active cyclobenzaprine (Flexeril) 10 MG tabletIndicatio ns:Fibromyalgia Take 1 tablet (10 mg) by mouth 3 times daily for 10 days. 30 tablet 025 Active celecoxib (CeleBREX) 100 MG capsuleIndicati ons:Fibromyalgi a Take 1 capsule (100 mg) by mouth 2 times daily. 60 capsule 1 025 Active traMADol (Ultram) 50 MG tabletIndicatio ns:Fibromyalgia Take 1 tablet (50 mg) by mouth every 12 (twelve) hours if needed for severe pain. 42 tablet 025 Active famotidine (Pepcid) 40 MG tablet TAKE 1 TABLET BY MOUTH AT BEDTIME 90 tablet 1 025 Active gabapentin (Neurontin) 300 MG capsule TAKE 1 CAPSULE BY MOUTH THREE TIMES DAILY 90 capsule 025 Active memantine (Namenda) 5 MG tabletIndicatio ns:Alzheimer's disease, unspecified (CODE) (CMS/FORMERLY [facility]) TAKE 1 TABLET BY MOUTH TWICE DAILY IN THE MORNING AND IN THE EVENING 60 tablet 025 Active memantine (Namenda) 5 MG tablet 024 2024 Discontinued famotidine (Pepcid) 40 MG tablet TAKE 1 TABLET BY MOUTH AT BEDTIME 90 tablet 1 024 2024 Discontinued gabapentin (Neurontin) 300 MG capsule TAKE 1 CAPSULE BY MOUTH THREE TIMES DAILY 90 capsule 2 024 2024 Discontinued traMADol (Ultram) 50 MG tabletIndicatio ns:Fibromyalgia Take 1 tablet (50 mg) by mouth every 12 (twelve) hours if needed for severe pain. 42 tablet 024 2024 Discontinued(R eorder (will not trigger notification to Pharmacy)) celecoxib (CeleBREX) 100 MG capsule TAKE 1 CAPSULE BY MOUTH TWICE DAILY IN THE MORNING AND IN THE EVENING 60 capsule 1 024 2024 Discontinued(R eorder (will not trigger notification to Pharmacy)) traMADol (Ultram) 50 MG tabletIndicatio ns:Fibromyalgia Take 1 tablet (50 mg) by mouth every 12 (twelve) hours if needed for severe pain. 42 tablet 025 2024 Discontinued(R eorder (will not trigger notification to Pharmacy)) Active Problems Problem Noted Date Diagnosed Date Chronic left ear pain 08/31/2023 Assessment & Plan (09/01/2023 2:20 AM EDT): Referral to ENT and Audiology for further evaluation of left ear. - Hx of left ear pain and hearing loss Hearing loss 08/31/2023 Dysphagia 07/20/2023 Assessment & Plan (09/01/2023 2:22 AM EDT): Barium swallow test came back normal. 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 Fibromyalgia 07/20/2023 Assessment & Plan (10/29/2023 1:27 PM EDT): Reports that she felt that gabapentin and tramadol has improved her pain and also improving her quality of life, reports that she is using tramadol prn. Assessment & Plan (10/18/2023 4:29 PM EDT): Discussed current medications and refills as needed. Discontinue Lyrica and begin Tramadol and Neurontin. F/u on 10/29/2023. Relevant Medications Gabapentin (Neurontin) 300 MG capsule Assessment & Plan (09/01/2023 2:17 AM EDT): Discontinue Gabapentin and prescribed Pregablin - Discussed patient on Pregablin substance control Assessment & Plan (07/20/2023 9:58 PM EST): Patient was prescribed gabapentin to help manage pain. Refilled Diclofenac. Rectal tenesmus 03/19/2023 Vaginal itching 03/19/2023 Assessment & Plan (03/19/2023 4:00 PM EDT): Patient that presented visit with complaints of vaginal itching will be given Estradiol cream to apply on affected area. Ingrown fingernail 12/16/2022 Assessment & Plan (12/16/2022 11:14 AM EDT): Unclear request or concern, she does have hx of ingrown toenails, and reports some arch pain, will send to podiatry Anxiety 12/16/2022 Assessment & Plan (03/19/2023 3:56 PM EDT): Patient still presents complaints of anxiety, therefore, patient will be redirected to care management to speak with a Therapist. Assessment & Plan (12/16/2022 11:13 AM EDT): Improved with medication, pending setup with therapy. Pt reports back pain, not specific with her concerns, was seen in walk in clinic, Xray done, reviewed with pt, pending PT. Reports celebrex not helpful, but had OTC lidocaine which she did find helpful, rx sent. If not approved they can get OTC. Cont medication. Advised to take 1/2 tablet of seroquel rx'ed by neurology to see if the somnolence improves. Breast pain, left 09/28/2022 Assessment & Plan (09/28/2022 4:01 PM EDT): Patient with chronic L breast pain. Will send for ultrasound of bilateral breast and mammogram. Periumbilical abdominal pain 09/28/2022 Assessment & Plan (09/28/2022 4:00 PM EDT): Ddx hernia. Will send for CT scan and refer to general surgeon. Diabetes mellitus due to und erlying condition with hyperglycemia, without long-term current use of insulin 08/21/2022 Assessment & Plan (07/20/2023 9:53 PM EST): Controlled. Glucose was 73 mg/dL and A1C was 6.1% today. Continue same treatment regimen and continue monitoring glucose. Labs: A1C, Glucose Urinary incontinence 08/21/2022 Moderate persistent asthma 08/21/2022 Assessment & Plan (06/01/2023 1:55 PM EST): Patient educated to avoid asthma triggers Prednisone 40mg for 5 days albuterol nebz or inhaler Q 4-6hrs as needed If symptoms persist or worse go to the emergency room Prescription for supplies (tubing) for nebulizer will be generated F/u with PCP Assessment & Plan (03/19/2023 3:57 PM EDT): Patient that presented visit with complaints of chest tightness due to inflammation will be prescribed steroids. Recommended patient to call [facility] to schedule an appointment to get further assistance. Alzheimer's dementia 08/21/2022 Assessment & Plan (03/16/2024 2:25 PM EDT): Patient reports she will want to switch neurologist elsewhere as she feels no being heard by current neurologist, will send referral Chronic diastolic heart failure 08/21/2022 Vertigo 08/21/2022 Coronary artery disease of n ative heart with stable angina pectoris 08/21/2022 CKD (chronic kidney disease), stage II Gastroesophageal reflux disease 08/21/2022 Type 2 diabetes mellitus wit h hyperglycemia, without long-term current use of insulin 08/21/2022 Assessment & Plan (09/01/2023 2:25 AM EDT): Discussion about the use of Metformin and dietary habits. I am not changing treatment regimen despite low reading today and during previous visit. - I will continue evaluating and discuss possible change in treatment regimen during next visit. F/U in 2 months Future Appointments Date Time Provider Department Center 10/18/2023 3:30 PM Edwige Headley MD [facility] Assessment & Plan (03/19/2023 3:58 PM EDT): Controlled: continue with current regiment. Recommended to keep monitoring glucose levels at home. Hypertension 08/21/2022 Assessment & Plan (09/28/2022 4:03 PM EDT): Uncontrolled. Elevated BP at time of visit 152/88 mmHg. Increase losartan from 25 mg to 50 mg. Follow up within a month to assess functionality of regimen adjustment. Headache, common migraine, intractable Assessment & Plan (03/16/2024 2:25 PM EDT): Patient reports she will want to switch neurologist elsewhere as she feels no being heard by current neurologist, will send referral Chronically dry eyes, bilateral 08/21/2022 Generalized anxiety disorder 08/21/2022 Assessment & Plan (09/29/2022 1:22 PM EDT): Assessment: Ed was engaged with active reflective listening and open-ended questions. Assessed symptoms, risks, and social supports with direct questions. Discussed current symptoms intensity and frequency. Emotions were normalized and validated. Ed identified doing things at home for her and daughter as coping mechanisms and support from as protective factors. Provided psychoeducation around coping mechanism. We discussed OP services, she agreed to Ind. Therapy but no Medication Management at this time. Provided education around integrated medicine and the options of follow up BE's as needed. Provided contact information should questions or concerns arise. Plan: will continue to engage in effective coping mechanisms that fit her needs and will practice the new one discussed. She will be referred for Ind. Therapy, agency close to home. Patient with lack of motivation, low mood, trouble with sleeping, little energy, feeling anxious specially when she was at her son place. Persistent worry, fear of something bad would happen in the context of when she was visiting her son for a month, the sxs exacerbated. Patient will benefit from Ind. Therapy to learn coping mechanisms to address her sxs. At this time Ed Hoffmann meets criteria for Visit Diagnoses: Problem List Items Addressed This Visit Other Generalized anxiety disorder Patient ready to address current needs Yes Strengths include Ed is ready to engage in services and has the support from and daughter. PLAN: 1. Follow up with [facility]: Not recommended for follow-up 2. Patient goal is to be able to manage her symptoms without medication. 3. Behavioral Recommendations a. Referral to Ind. therapy b. Practice of Coping skills for Anxiety c. Contact this justowriter operator for support as needed Encounters Date Type Department Care Team Description 07/06/2024 Refill [facility] [address] [place] [address] Edwige Headley MD Alzheimer's disease, unspecified (CODE) ([facility]) 07/06/2024 Telephone [facility] [address] [place] [address] Edwige Headley MD Lab Orders 07/05/2024 Refill [facility] [address] [place] [address] Edwige Headley MD 06/26/2024 Refill [facility] [address] [place] [address] Edwige Headley MD 06/20/2024 1:00 PM EST Clinical Support [facility] [address] [place] [address] Maria Guadalupe Rodríguez RN Fibromyalgia 06/20/2024 Travel 06/20/2024 Refill [facility] [address] [place] [address] Maria Guadalupe Rodríguez RN Fibromyalgia 06/19/2024 2:45 PM EST Office Visit [facility] [address] [place] [address] Radha Renee MD Fibromyalgia (Primary Dx); Type 2 diabetes mellitus with hyperglycemia, without long-term current use of insulin ([facility] Chronic diastolic heart failure ([facility]); Chronic obstructive pulmonary disease, unspecified COPD type ([facility]) 06/19/2024 Travel 06/13/2024 Refill [facility] [address] [place] [address] Edwige Headley MD Fibromyalgia 05/30/2024 1:00 PM EST Office Visit [facility] [address] [place] [address] Radha Renee MD Chronic obstructive pulmonary disease, unspecified COPD type (CMS/HCC) (Primary Dx); Raynaud's phenomenon without gangrene; Other fatigue; Type 2 diabetes mellitus with hyperglycemia, without long-term current use of insulin (CMS/HCC); Primary hypertension 05/30/2024 Travel 05/25/2024 Patient Outreach [facility] [address] [place] [address] Edwige Headley MD Transition Of Care (Tcm) (HDF- scheduled and SDOH screening completed on 10/29/2023) 05/25/2024 Telephone [facility] [address] [place] [phone] Edwige Headley MD Hospital Follow-up 05/24/2024 Telephone [facility] [address] [place] [phone] Mary Santiago MD 05/16/2024 Orders Only [facility] External Provider, [facility] 05/16/2024 Telephone [facility] [address] [place] [phone] Brody Carter MD 05/10/2024 Refill [facility] [address] [place] [address] Edwige Headley MD 04/28/2024 Telephone [facility] [address] [place] [phone] Edwige Headley MD Appointment Request 04/27/2024 Refill [facility] [address] [place] [phone] Edwige Headley MD 04/17/2024 Refill [facility] [address] [place] [address] Edwige Headley MD Fibromyalgia 04/12/2024 Refill [facility] [address] [place] [address] Maria Guadalupe Rodríguez RN Fibromyalgia 04/12/2024 Telephone [facility] [address] [place] [address] Edwige Headley MD 04/10/2024 Telephone [facility] [address] [place], [place] [phone] Maria Guadalupe Rodríguez, AC 04/06/2024 Telephone [facility] [address] [place] [address] Edwige Headley MD Appointment Request from Last 3 Months Immunizations Name Administration Dates Next Due Influenza High-dose Quadrivalent Preservative Fr ee 01/02/2022 Influenza injectable quadrivalent preservative f ree 07/20/2023 Influenza, High Dose Seasonal, Preservative Free 02/25/2024 Pfizer Covid-19 Vaccine 12+ 07/20/2023 Pneumococcal Conjugate PCV 20 01/02/2022 RSV Bivalent 02/03/2024 Tdap 12/11/2022 Zoster, Recombinant 02/23/2023,12/11/2022 Social History Tobacco Use Types Packs/Day Years Used Date Smoking Tobacco: Never Tobacco Cessation:Counseling Given: Not Answered Depression Answer Date Recorded Patient Health Questionnaire-9 Score 10 10/29/2023 Patient Health Questionnaire-9 Score 10 10/29/2023 Last PHQ-9: Questionnaire Data Not on file 0 10/29/2023 Housing Stability Answer Date Recorded What is your housing situation today? I have mercedes mireles 03/02/[address] you li ve. Do you have problems with any of the following? None of the above 03/02/2023 Food Insecurity Answer Date Recorded Within the past 12 months, y ou worried that your food would run out before you got money to buy more: Never True 03/02/2023 Within the past 12 months,th e food you bought just didn't last and you didn't have enough money to get more: Never True Transportation Answer Date Recorded In the past 12 months, has l ack of transportation kept you from medical appts, meetings, work or from getting things needed for daily living? No 03/02/2023 Utilities Answer Date Recorded In the past 12 months, has t he electric, gas, oil or water company threatened to shut off services in your home? No 03/02/2023 Depression Answer Date Recorded Patient Health Questionnaire-2 Score 4 10/29/2023 Comments Unknown Sex and Gender Information Value Date Recorded Sex Assigned at Female 08/20/2022 3:54 PM EDT Legal Sex Female 1:29 PM EST Gender Identity Female 08/20/2022 3:54 PM EDT Sexual Orientation Straight 08/20/2022 3: 54 PM EDT Last Filed Vital Signs Vital Sign Reading Time Taken Comments Blood Pressure 126/83 06/19/2024 2:32 PM EST Pulse 90 06/19/2024 2:32 PM EST Temperature 36.8 ??C (98.3 ??F) 06/19/2024 2:32 PM ES T Respiratory Rate 14 06/19/2024 2:32 PM EST Oxygen Saturation 96% 06/19/2024 2:32 PM EST Inhaled Oxygen Concentration - - Weight 55.8 kg (123 lb) 06/19/2024 2:32 PM EST Height 152.4 cm (5') 06/19/2024 2:32 PM EST Body Mass Index 24.02 06/19/2024 2:32 PM EST Plan of Treatment Upcoming Encounters Date Type Department Care Team (Late st Contact Info) Description 08/24/2024 2:30 PM EDT Clinical Support [facility] [address] [place] [address] Maria Guadalupe Rodríguez, AC [address] [place] [address] Health Maintenance Due Date Last Done Comments Eye Exam 1955 Hepatitis C Screening 1963 Diabetes: Urine Protein Screening 08/22/2023 08/21/2022 COVID-19 Vaccine ( season) 2024 07/20/2023 Depression Monitoring (PHQ-9) 04/29/2024 10/29/2023, 10/29/2023 Lipid Panel 08/29/2024 08/30/2023, 08/21/2022 Depression Screening 10/28/2024 10/29/2023, 10/29/19 24 SDOH Screening 10/28/2024 10/29/2023 Diabetes: Hemoglobin A1C 11/27/202405/30/ 025, 08/30/2023, 07/20/2023, Additional history exists Alcohol/Substance Use Screening 06/19/2025 06/19/2024 Diabetes: Foot Exam 06/19/2025 06/19/2024, 06/19/2024, 06/19/2024, Additional history exists Tobacco Screening 06/19/2025 06/19/2024 DTaP/Tdap/Td Vaccines (2 - Td or Tdap) 12/11/2032 12/11/2022 Pneumococcal Vaccine: 50+ Years Completed 01/02/2022 Zoster Vaccines Completed 02/23/2023, 12/11/2022 RSV Patients and Patients Aged 60 years or older Completed 02/03/2024 Influenza Vaccine Completed 02/25/2024, , 01/02/2022 HIB Vaccines Aged Out No longer eligi ble based on patient's age to complete this topic HPV Vaccines Aged Out No longer eligi ble based on patient's age to complete this topic Hepatitis A Vaccines Aged Out No long er eligible based on patient's age to complete this topic Hepatitis B Vaccines Aged Out No long er eligible based on patient's age to complete this topic IPV Vaccines Aged Out No longer eligi ble based on patient's age to complete this topic Meningococcal Vaccine Aged Out No gladis malaika eligible based on patient's age to complete this topic RSV under 20 months Aged Out No longe r eligible based on patient's age to complete this topic Rotavirus Vaccines Aged Out No longer eligible based on patient's age to complete this topic Goals Goal Patient Goal Type Associated Problems Recent Progress Patient-Stated? Author Use the inhalers as prescribed by provider; Flovent HFA scheduled and albuterol as needed General No Marcel Garcia PharmD Take your medication every day Lifestyle No Marcel Garcia PharmD Procedures Procedure Name Priority Date/Time Associated Diagnosis Comments POCT SENAIT-14 URINE DRUG SCREEN Routine 06/20/2024 2:05 PM EST Fibromyalgia POCT GLUCOSE Routine 06/19/2024 2:34 PM EST Type 2 diabetes mellitus with hyperglycemia, without long-term current use of insulin ([facility]/HCC) MAGNESIUM Routine 05/31/2024 12:44 PM EST Chronic obstructive pulmonary disease, unspecified COPD type (CMS/HCC) Raynaud's phenomenon without gangrene Other fatigue VITAMIN B1 Routine 05/31/2024 12:44 PM EST Chronic obstructive pulmonary disease, unspecified COPD type (CMS/HCC) Raynaud's phenomenon without gangrene Other fatigue VITAMIN B12/FOLATE, SERUM PANEL Routine 05/31/2024 12:44 PM EST Chronic obstructive pulmonary disease, unspecified COPD type (CMS/HCC) Raynaud's phenomenon without gangrene Other fatigue TSH W/REFLEX TO FT4 Routine 05/31/2024 1 2:44 PM EST Chronic obstructive pulmonary disease, unspecified COPD type (CMS/HCC) Raynaud's phenomenon without gangrene Other fatigue VITAMIN D,25-OH,TOTAL,IA Routine 05/31/2024 12:44 PM EST Chronic obstructive pulmonary disease, unspecified COPD type (CMS/HCC) Raynaud's phenomenon without gangrene Other fatigue POCT GLUCOSE Routine 05/30/2024 1:43 PM EST Type 2 diabetes mellitus with hyperglycemia, without long-term current use of insulin (CMS/HCC) POCT GLYCATED HEMOGLOBIN, TOTAL Routine 05/30/2024 1:42 PM EST Type 2 diabetes mellitus with hyperglycemia, without long-term current use of insulin (CMS/HCC) URINALYSIS, COMPLETE, WITH REFLEX TO CULTURE Routine 05/16/2024 2:49 PM EST VENOUS BLOOD GAS Routine 05/16/2024 1:17 PM EST PROCALCITONIN Routine 05/16/2024 1:10 PM EST LACTIC ACID Routine 05/16/2024 1:10 PM EST HIGH SENSITIVITY TROPONIN I Routine 05/16/2024 1:10 PM EST LIPASE Routine 05/16/2024 1:10 PM EST C-REACTIVE PROTEIN Routine 05/16/2024 1: 10 PM EST MAGNESIUM Routine 05/16/2024 1:10 PM EST BASIC METABOLIC PANEL Routine 05/16/2024 1:10 PM EST HEPATIC FUNCTION PANEL Routine 1:10 PM EST B TYPE NATRIURETIC PEPTIDE (BNP) Routine 05/16/2024 1:10 PM EST CBC WITH AUTO DIFFERENTIAL Routine 05/16/2024 1:10 PM EST SARS COV2/INFLUENZA A/B AND RSV RNA QL NAAT Routine 05/16/2024 1:09 PM EST BLOOD CULTURE (SECOND) Routine 12:52 PM EST XR CHEST 1 VIEW Routine 05/16/2024 12:50 PM EST LIPID PANEL, STANDARD Routine 08/30/2023 10:36 AM EDT ALBUMIN, RANDOM URINE W/O CREATININE Routine 08/21/2022 10:43 AM EDT Type 2 diabetes mellitus with hyperglycemia, without long-term current use of insulin (CMS/HCC) from Last 3 Months or Most Recently Relevant to Health Maintenance Results * POCT SENAIT-14 Urine Drug Screen (06/20/2024 2:05 PM EST) Urine Urine specimen obtained by clean catch procedure / Unknown 06/20/2024 2:05 PM EST Narrative Maria Guadalupe Rodríguez RN - 06/20/2024 2:05 PM EST negative for THC, MOP, OXY, ANTON, MET, AMP, BZO, BAR, MTD, BUPG, TCA, MDMA, PCP, PPX. Lot# [id number] Exp: 04-22-25 us Edwige Headley MD POINT OF CARE TEST ENTER/EDIT ORDERABLES Final Result * POCT glucose manually resulted (06/19/2024 2:34 PM EST) Only the most recent of2 resultswithin the time period is included. Pathologist [facility] Glucose Blood, POC 113 60 - 200 mg/dL QC Media Lot # Comment:[id number] Lot# Expiration Date Comment:08/22/2024 Blood Capillary blood specimen / Unknown 06/19/2024 2:34 PM EST Radha Renee MD POINT OF CARE TEST ENTER/ED IT ORDERABLES Final Result * Vitamin D, 25-Hydroxy, Total, Immunoassay (05/31/2024 12:44 PM EST) Bryn [facility] Vitamin D 25-OH Total 33.6 >30 ng/mL [facility] Comment:Health Based Referen ce Values*< 20 ng/mL Okeokszdm59-45 ng/mL Insufficient> 30 ng/mL Sufficient*Yessy MENDOZA. N Engl J Med. 2007;357:266-280Care must be taken in interpreting Vitamin D results fromdifferent laboratories and methodologies. Published datademonstrated that results from patients undergoinghemodialysis may show a negative bias when tested withvarious automated 25-OH vitamin D assays when compared toLC-MS/MS.When testing samples from patients whose predominant form ofVitamin D is Vitamin D2, such as patients receiving VitaminD2 supplementation, results that are subtherapeutic shouldbe confirmed with another method such as LC-MS/MS. Blood Venous blood specimen / Unknown 05/31/2024 12:44 PM EST 05/31/2024 2:20 PM EST Radha Renee MD LAB BLOOD ORDERABLES Final Result [facility] [address] [place] [phone] * (ABNORMAL) Vitamin B12/Folate, Serum Panel (05/31/2024 12:44 PM EST) [facility] Vitamin B12 944(H) 200 - 900 pg/mL [facility] Comment:NORMAL 200-900 PG/ML INDETERMINATE 160-199 PG/ML DEFICIENT < 160 PG/ML Folate 11.9 > or = 4.0 ng/mL [facility] Comment:Reference Values:> o r = 4.0 ng/mL< 4.0 ng/mL suggests folate deficiency Methotrexate, aminopterin and folinic acid(leucovorin) are chemotherapeutic agents whose molecularstructures are similar to folate; therefore, the Architectfolate assay cannot be used for patients using these drugs. Blood Venous blood specimen / Unknown 05/31/2024 12:44 PM EST 05/31/2024 2:20 PM EST us Radha Renee MD LAB BLOOD ORDERABLES Final Result Performing Organization Address [facility]/ZIP Co de Phone Number [facility] [address] [place] [address] [phone] * TSH W/Reflex to FT4 (05/31/2024 12:44 PM EST) TSH reflex Free T4 1.02 0.32 - 4.0 uIU/mL [facility] Blood Venous blood specimen / Unknown 05/31/2024 12:44 PM EST 05/31/2024 2:20 PM EST Radha Renee MD LAB BLOOD ORDERABLES Final Result Performing Organization Address City/[facility]/ZIP Co de Phone Number [facility] [address] [place] [phone] * (ABNORMAL) Vitamin B1 (05/31/2024 12:44 PM EST) Vitamin B1 41(A) 8 - 30 nmol/L [facility] Comment:Vitamin supplementat ion within 24 hours prior toblood draw may affect the accuracy of the results.This test was developed and its analytical performancecharacteristics have been determined by [employer] [place], [place]. It hasnot been cleared or approved by the U.S. Food and DrugAdministration. This assay has been validated pursuantto the CLIA regulations and is used for clinicalpurposes.THIS TEST WAS PERFORMED AT:[id number] [place] [address]SOLZZDHVIRGINIA DAN MD,PHD Blood Venous blood specimen / Unknown 05/31/2024 12:44 PM EST 05/31/2024 2:20 PM EST Radha Renee MD LAB BLOOD ORDERABLES Final Result Performing Organization Address City/[facility]/ZIP Co de Phone Number [facility] [address] [place] [phone] * Magnesium (05/31/2024 12:44 PM EST) Only the most recent of2 resultswithin the time period is included. Magnesium 1.8 1.6 - 2.6 mg/dL [facility] Blood Venous blood specimen / Unknown 05/31/2024 12:44 PM EST 05/31/2024 2:20 PM EST Radha Renee MD LAB BLOOD ORDERABLES Final Result Performing Organization Address City/[facility]/ZIP Co de Phone Number [facility] [address] [place] [phone] * (ABNORMAL) POCT HGB A1C (05/30/2024 1:42 PM EST) Hemoglobin A1C 6.9(A) 4.0 - 6.0 % QC Media Lot # [id number] Lot# Expiration Date [id number] Blood 05/30/2024 1:42 PM EST Radha Renee MD POINT OF CARE TEST ENTER/ED IT ORDERABLES Final Result * (ABNORMAL) Urinalysis, Complete, with Reflex to Culture (05/16/2024 2:49 PM EST) Color Urine Yellow [facility] Appearance Urine Clear [facility] PH 5.0 5.0 - 9.0 [facility] Glucose Urine UA Negative Negative mg/dL [facility] Urine Blood Trace(A) Negative [facility] Specific Beatty - Urine 1.010 1.005 - 1.025 [facility] Urine Protein Negative Neg-Trace mg/dL [facility] Urine Ketones Negative Negative mg/dL [facility] Nitrite Urine Negative Negative [facility] Leukocyte Esterase Urine Negative Negative [facility] RBC Urine 0-2 0 - 2 /HPF [facility] Urine WBC 0-5 0 - 5 /HPF [facility] Urine Squamous Epithelial Cell 0-2 0 - 2 /HPF [facility] Urine Bacteria None Seen None Seen [facility] Hyaline Casts, Urine 0-2 0 - 2 /LPF [facility] 05/16/2024 2:49 PM EST 05/16/2024 2:56 PM EST Narrative [facility] - 05/16/2024 3:05 PM EST [id number], Clean Catch us Generic External Data Provider LAB URINE ORDERAB LES Final Result [facility] [address] [place] [address] [phone] * (ABNORMAL) VENOUS BLOOD GAS (05/16/2024 1:17 PM EST) VBG pH 7.37 7.32 - 7.43 [facility] Comment:METER #: [id number] additional_comment: Tay arnold VBG PCO2 53 mmHg [facility] Comment:METER #: [id number] additional_comment: Tay arnold VBG PO2 47 mmHg [facility] Comment:METER #: [id number] additional_comment: Cb clayton VBG Base Excess 4.7 mmol/L [facility] Comment:METER #: [id number] additional_comment: Tay arnold VBG HCO3 31(H) 22 - 26 mmol/L [facility] Comment:METER #: [id number] additional_comment: Tay arnold O2 Sat, Darren 72.0 % [facility] Comment:METER #: [id number] additional_comment: Tay arnold 05/16/2024 1:17 PM EST 05/16/2024 1:23 PM EST Generic External Data Provider LAB BLOOD ORDERAB LES Final Result Performing Organization Address [facility] de Phone Number [facility] [address] [place] [address] [phone] * High Sensitivity Troponin I (05/16/2024 1:10 PM EST) TROPONIN I HIGH SENSITIVITY <2.7 <3.5 - 17.0 ng/L [facility] Comment:The Goldstein high sens itivity Troponin-I results should beused in conjunction with other diagnostic information suchas ECG, clinical observations and information, and patientsymptoms to aid in the diagnosis of [place]. 05/16/2024 1:10 PM EST 05/16/2024 1:15 PM EST Generic External Data Provider LAB BLOOD ORDERAB LES Final Result Performing Organization Address [facility] de Phone Number [facility] [address] [place] [address] [phone] * Procalcitonin (05/16/2024 1:10 PM EST) Procalcitonin 0.05 ng/mL [facility] Comment: Procalcitonin (PCT) Reference Range:PCT greater than 2.0 ng/mL: ??A PCT level above 2.0 ng/mL onthe first day of ICU admission is associated with a highrisk for progression to severe sepsis and/or septic shock.PCT less than 0.5 ng/mL: ??A PCT level below 0.5 ng/mL on thefirst day of ICU admission is associated with a low risk forprogression to severe sepsis and/or septic shock.PCT levels below 0.5 ng/mL do not exclude an infection.Care must be taken in interpreting PCT results fromdifferent laboratories and methodologies.References:[place] [employer]/Society of CriticalCare Medicine Consensus Conference Committee. ??Definitionsfor sepsis and organ failure and guidelines for the use ofinnovative therapies in sepsis. ??Crit Care Dty6835;20(6):864-874.Adrián B, Rodney AGARWAL, Jennyfer H, et al. ??Calcitoninprecursors are reliable markers of sepsis in a medicalintensive care unit. ??Crit Care Med 2000;363:600-607.Terese S, Solange K, Jaylyn C, et al. ??Diagnosticvalue of procalcitonin, interleukin-6 and interleukin-8 incritically ill patients admitted with suspected sepsis. ??AMJ Respir Crit Care Med 2001;164:396-402.US Food and Drug Administration. ??510(k) substantialequivalence determination decision summary for [facility].http://www.accessdata.fda.fov/cdrh_docs/reviews/[email or web address].pdf.Published May 2004. ??Accessed October 2016. 05/16/2024 1:10 PM EST 05/16/2024 1:15 PM EST us Generic External Data Provider LAB BLOOD ORDERAB LES Final Result [facility] [address] [place] [address] [phone] * (ABNORMAL) CBC auto differential (05/16/2024 1:10 PM EST) White Blood Count 8.0 4.8 - 10.8 X10*3/uL [facility] Red Blood Count 4.33 4.20 - 5.50 X10*6/uL [facility] Hemoglobin 13.3 12.0 - 16.0 g/dl [facility] Hematocrit 39.3 37.0 - 47.0 % [facility] Mean Corpuscular Volume 90.8 80.0 - 98.0 fL [facility] Mean Corpuscular Hemoglobin 30.7 27.0 - 33.0 pg [facility] Mean Corpuscular HGB Conc 33.8 31.0 - 35.0 g/dl [facility] Red Cell Distribution Width 14.5 11.0 - 16.0 % [facility] Platelet Count 184 160 - 400 X10*3/uL [facility] Mean Platelet Volume 10.4 9.4 - 12.3 fL [facility] Neutrophils Percent Auto 50.6 45 - 73 % [facility] Imm Gran Pct Auto 0.5(H) 0.0 - 0.4 % [facility] Lymphocytes Percent Auto 38.7 20 - 40 % [facility] Monocytes Percent Auto 7.9 2 - 11 % [facility] Eosinophils Percent Auto 2.0 0 - 4 % [facility] Basophils Percent Auto 0.3 0 - 2 % [facility] NRBC Pct Auto 0.0 0.0 - 0.2 /100WBC [facility] Neutrophils Absolute Auto 4.0 2.0 - 8.3 x10*3/uL [facility] Imm Gran Abs Auto 0.04(H) 0.00 - 0.03 X10*3/uL [facility] Lymphocytes Absolute Auto 3.1 1.2 - 4.9 X10*3/uL [facility] Monocytes Absolute Auto 0.6 0.1 - 1.2 X10*3/uL [facility] Eosinophils Absolute Auto 0.2 0.0 - 0.4 X10*3/uL [facility] Basophils Absolute Auto 0.0 0.0 - 0.2 X10*3/uL [facility] NRBC Abs Auto 0.000 0.0 - 0.012 X10*3/uL [facility] 05/16/2024 1:10 PM EST 05/16/2024 1:15 PM EST us Generic External Data Provider LAB BLOOD ORDERAB LES Final Result Performing Organization Address [facility]/ZIP Co de Phone Number [facility] [address] [place] [address] [phone] * C-reactive Protein (05/16/2024 1:10 PM EST) C Reactive Protein <0.10 < or = 0.50 mg/dL [facility] 05/16/2024 1:10 PM EST 05/16/2024 1:15 PM EST Generic External Data Provider LAB BLOOD ORDERAB LES Final Result Performing Organization Address [facility] Number [facility] [address] [place] [address] [phone] * B Type Natriuretic Peptide (BNP) (05/16/2024 1:10 PM EST) Pathologist [facility] B Type Natriuretic Peptide <10 <100 pg/mL [facility] Comment:For those patients w ho are being treated with Natrecor(nesiritide, recombinant BNP), BNP testing should beperformed at least two hours post treatment in order toensure that only endogenous levels of BNP are detected. 05/16/2024 1:10 PM EST 05/16/2024 1:15 PM EST us Generic External Data Provider LAB BLOOD ORDERAB LES Final Result Performing Organization Address [facility] Co de Phone Number [facility] [address] [place] [phone] * Lipase (05/16/2024 1:10 PM EST) Lipase 21 8 - 78 U/L [facility] 05/16/2024 1:10 PM EST 05/16/2024 1:15 PM EST Generic External Data Provider LAB BLOOD ORDERAB LES Final Result Performing Organization Address [facility] Co de Phone Number [facility] [address] [place] [phone] * (ABNORMAL) Lactic Acid (05/16/2024 1:10 PM EST) Lactic Acid 3.0(HH) 0.5 - 2.0 mmol/L [facility] Comment:Critical value for L ACTIC: Results called to and read backby: CHARLA Person calling: CHERRIE Date: 05/16/24 Time:1347 05/16/2024 1:10 PM EST 05/16/2024 1:15 PM EST us Generic External Data Provider LAB BLOOD ORDERAB LES Final Result Performing Organization Address [facility] Co de Phone Number [facility] [address] [place] [phone] * Hepatic Function Panel (05/16/2024 1:10 PM EST) Bilirubin, Total 0.4 0.0 - 1.0 mg/dL [facility] Bilirubin, Direct 0.2 0.0 - 0.5 mg/dL [facility] Aspartate Amino Transferase 28 5 - 31 U/L [facility] Alanine Aminotransferase 31 0 - 31 U/L [facility] Total Protein 7.4 6.5 - 8.0 g/dL [facility] Albumin Level 4.0 3.5 - 5.0 g/dL [facility] Alkaline Phosphatase 66 39 - 117 U/L [facility] 05/16/2024 1:10 PM EST 05/16/2024 1:15 PM EST us Generic External Data Provider LAB BLOOD ORDERAB LES Final Result Performing Organization Address [facility] Co de Phone Number [facility] [address] [place] [phone] * (ABNORMAL) Basic Metabolic Panel (05/16/2024 1:10 PM EST) Sodium 142 135 - 145 mmol/L [facility] Potassium 3.9 3.3 - 5.1 mmol/L [facility] Chloride 108 96 - 108 mmol/L [facility] Carbon Dioxide 26 22 - 29 mmol/L [facility] Anion Gap 12 12 - 20 [facility] Urea Nitrogen (BUN) 12 9 - 16 mg/dL [facility] Creatinine, Serum 0.83 0.5 - 1.4 mg/dL [facility] Creatinine Clr Calc Pharmacy 49.6 [facility] Comment:Provided height and weight: 165.1 cm,56.3 kg.eGFR (calculated from the MDRD study equation) and eCrCl(calculated from the Cockcroft-Gault equation) are based ondifferent parameters and may not yield comparable results.If eCrCl result is absurd, please check patient'sheight/weight. Estimated Glomerular Filt Rate >60 [facility] Comment:Chronic Kidney Disea se: Estimated GFR < 60 mL/min/1.93q3Ggovxy Kidney Disease: Estimated GFR < 15 mL/min/1.73m2 Glucose 149(H) 60 - 115 mg/dL [facility] Calcium 9.1 8.4 - 10.2 mg/dL [facility] 05/16/2024 1:10 PM EST 05/16/2024 1:15 PM EST us Generic External Data Provider LAB BLOOD ORDERAB LES Final Result [facility] [address] [place] [phone] * SARS-CoV-2 RNA, Influenza A/B, and RSV RNA, Ql NAAT (05/16/2024 1:09 PM EST) Influenza A PCR NEGATIVE Negative [facility] Influenza B PCR NEGATIVE Negative [facility] Resp Syncy Virus RNA Qual PCR NEGATIVE Negative [facility] SARS COV2 PCR NEGATIVE Negative [facility] Comment:All test results mus t be correlated with clinical findings.Negative results do not preclude SARS-CoV2, influenza Avirus, influenza B virus and/or RSV infectionand should not be used as the sole basis for treatment orother patient management decisions. Negative results must becombined with clinical observations, patient history, andepidemiological information.This test has not been evaluated for monitoring treatment ofinfection.This test has been authorized by the FDA under an EmergencyUse Authorization (EUA) for use by authorized laboratories.Testing performed on the [employer] GeneXpert utilizingreal-time RT-PCR.All SARS CoV2 and positive influenza A/B results arereported to [facility]. 05/16/2024 1:09 PM EST 05/16/2024 1:15 PM EST [employer] External Data Provider LAB MICROBIOLOGY - GENERAL ORDERABLES Final Result Performing Organization Address [facility]/ZIP Co de Phone Number [facility] [address] [place] [address] [phone] * Blood Culture (Second) (05/16/2024 12:52 PM EST) Blood Venous blood specimen / Unknown 05/16/2024 12:52 PM EST 05/16/2024 1:33 PM EST Comment:Blood Narrative [facility] - 05/16/2024 1:33 PM EST Multiple attempts for 2nd set of BCs. Unable to obtain at this time. aware. Blood Culture (Second) Test not performed CANCELED BY PROVIDER Specimen Source: Blood [employer] External Data Provider LAB MICROBIOLOGY - GENERAL ORDERABLES Final Result Performing Organization Address [facility] Co de Phone Number [facility] [address] [place] [address] [phone] * XR Chest 1 View (05/16/2024 12:50 PM EST) Anatomical Region Laterality Modality Chest Radiographic Patircia ging 05/16/2024 12:5 0 PM EST Narrative 05/16/2024 1:24 PM EST ? [facility] ?[address] ?[place] [address] ?XRay Report ? Signed ? Patient: Puri Hoffmann,Blasina ?MR#: [id number] ?? [id number] ? : 1945 ?Acct:[id number] ? Age/Sex: 78 / F ?ADM Date: 05/16/24 ? Loc: HO.ED ? Attending Dr: ? Ordering Physician: Nandini Dumont DO ?? Date of Service: 05/16/24 ?? Procedure(s): XR chest 1V ?? Accession Number(s): [id number] ? cc: Nandini Dumont DO; Edwige Headley MD ? EXAMINATION: ?? XR CHEST ? CLINICAL INFORMATION: ?? cough, fever ? COMPARISON: ?? Chest 03/16/2024 ? TECHNIQUE: ?? Frontal view of the chest was obtained. ? FINDINGS: ?? No significant abnormality is noted involving the heart, lungs, ?? mediastinum, bony thorax or soft tissues. ? XR/XR chest 1V ?? IMPRESSION: ?? Unremarkable chest examination. ? Electronically signed by: ??Luke Linares MD ??05/16/2024 01:21 PM EST RP ? Dictated By: ?Luke Linares MD ? Signed By: ?<Electronically signed by Luke Linares MD in OV> ?05/16/24 1321 ? DD/ 1250 ? TD/TT: 05/16/24 1255 ? [employer] [address] [employer] Technician: MSM ? Procedure Note Drea, Image - 05/16/[address] [address] XRay Report Signed Patient: Arthur Holguin#: M [id number] : 6Acct:[id number] Age/Sex: 78 / FADM Date: 05/16/24 Loc: HO.ED Attending Dr: Ordering Physician: Nandini Dumont DO Date of Service: 05/16/24 Procedure(s): XR chest 1V Accession Number(s): [id number] cc: Nandini Dumont DO; Edwige Headley MD EXAMINATION: XR CHEST CLINICAL INFORMATION: cough, fever COMPARISON: Chest 03/16/2024 TECHNIQUE: Frontal view of the chest was obtained. FINDINGS: No significant abnormality is noted involving the heart, lungs, mediastinum, bony thorax or soft tissues. XR/XR chest 1V IMPRESSION: Unremarkable chest examination. Electronically signed by: Luke Linares MD 05/16/2024 01:21 PM EST Dictated By: Luke Linares MD Signed By: <Electronically signed by Luke Linares MD in OV> 05/16/24 1321 DD/ 1250 TD/TT: 05/16/[address] Technician: [facility] External Provider IMG XR PROCEDURES Final Result * Lipid Panel, Standard (08/30/2023 10:36 AM EDT) Triglycerides 39 <150 mg/dL [facility] Comment:Desirable Triglyceri de: less than 150 mg/dLBorderline High Triglyceride 150-199 mg/dLHigh Triglyceride: 200-499 mg/dLVery High Triglyceride: greater than or equal to 5OO mg/dL Cholesterol 116 <200 mg/dL [facility] Comment:Desirable Cholestero l: less than 200 mg/dLBorderline High Cholesterol: 200-239 mg/dLHigh Cholesterol: greater than 239 mg/dL LDL Cholesterol Calculated 35 <100 mg/dL [facility] Comment:Desirable LDL: less than 100 mg/dLNear Optimal/Above Optimal LDL: 110- 129 mg/dLBorderline High LDL: 130-159 mg/dLHigh LDL: 160-189 mg/dLVery High LDL: greater than or equal to 190 mg/dL HDL Cholesterol 74 >40 mg/dL [facility] Comment:Desirable HDL: great er than 40 mg/dL Note: This HDL assay may give artificially low results in patients with liver disease. 08/30/2023 10:3 6 AM EDT 08/30/2023 10:41 AM EDT Generic External Data Provider LAB BLOOD ORDERAB LES Final Result [facility] [address] [place] [phone] * Albumin, Random Urine W/O Creatinine (08/21/2022 10:43 AM EDT) Albumin, Urine 1.8 See Note: mg/dL [facility] [place] [facility] Comment: Reference Range: Reference Range Not established [facility] [place] [facility] Comment: The ADA defines abnormalities in albumin excretion as follows: Albuminuria Category ? Result (mcg/mg creatinine) Normal to Mildly increased ?<30 Moderately increased ?30-299 Severely increased ?> OR = 300 The ADA recommends that at least two of three specimens collected within a 3-6 month period be abnormal before considering a patient to be within a diagnostic category. Urine Urine specimen obtained by clean catch procedure / Unknown 08/21/2022 10:43 AM EDT 08/21/2022 10:43 AM EDT Narrative [facility] - 08/25/2022 12:44 PM EDT FASTING:YES FASTING: YES us Edwige Headley MD LAB URINE ORDERABLES Final Re sult [facility] [address], [place] [address] [facility] [place] [employer] [address] [place] [address] from Last 3 Months or Most Recently Relevant to Health Maintenance [facility] Care Teams Bridge Builder Relationship Specialty Start Date End Date Edwige Headley MD [address] [place] [address] PCP - General Family Medicine 08/21/22
--- OUTSIDE RECORDS SUMMARY | 2024-07-07 09:48 | XMS_ITS | Encounter Summary ---
Author Organization [employer] Address [address] [place] [address] Care Team Providers Care Urban Planner Name Role Phone Edwige Headley MD Primary Care Provider Reason for Visit * Reason Onset Date Comments Appointment Request 04/28/2024 Encounter Details Date Type Department Care Team ([facility] st Contact Info) Description 04/28/2024 Telephone [facility] MEDICINE [address] [place] [address] Edwige Headley MD [address] [place] [address] Appointment Request Social History Tobacco Use Types Packs/Day Years Used Date Smoking Tobacco: Never Depression Answer Date Recorded Patient Health Questionnaire-9 [...] Orientation Straight 08/20/2022 3: 54 PM EDT documented as of this encounter Miscellaneous Notes * Telephone Encounter - Cj Hinojosa - 04/28/2024 2:22 PM EST 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 Pt would like to reschedule. documented in this encounter Plan of Treatment Upcoming Encounters Date Type Department Care Team (Late st Contact Info) Description 08/24/2024 2:30 PM EDT Clinical Support [facility] MED & PEDS [address] [place] [address] Maria Guadalupe Rodríguez, AC [address] [place], [place] documented as of this encounter Goals Goal Patient Goal Type Associated Problems Recent Progress Patient-Stated? Author Use the inhalers as prescribed by provider; Flovent HFA scheduled and albuterol as needed General No Marcel Garcia, PharmD Take your medication every day Lifestyle No Marcel Garcia PharmD documented as of this encounter Visit Diagnoses Not on filedocumented in this encounter Additional Health Concerns Assessment Noted Time PHQ-9 Depression Total Score: 10 024 12:52 PM EDT documented as of this encounter Care Teams Urban Planner Relationship Specialty Start Date End Date Edwige Headley MD [address] [place] [address] PCP - General Family Medicine 08/21/22 documented as of this encounter
--- OUTSIDE RECORDS SUMMARY | 2024-07-07 09:48 | XMS_ITS | Encounter Summary ---
Author Organization [employer] Address [address] [place] [address] Care Team Providers Care Rectification Printer Name Role Phone Edwige Headley MD Primary Care Provider [phone] Reason for Visit * Reason Onset Date Comments Appointment Request 04/06/2024 Encounter Details Date Type Department Care Team ([facility] st Contact Info) Description 04/06/[address] [facility] MEDICINE [address] [place] [address] Edwige Headley MD [address] [place] [address] Appointment Request Social History Tobacco Use Types [...] encounter Miscellaneous Notes * Telephone Encounter - Onel Sanchez - 04/06/2024 9:38 AM EST Tc from pt requesting to r/s appt from 05/04 due to having a appt the same day with somewhere else. Contac pt to r/s at [phone] documented in this encounter Plan of Treatment Upcoming Encounters Date Type Department Care Team (Late st Contact Info) Description 08/24/2024 2:30 PM EDT Clinical Support [facility] MED & PEDS [address] [place] [address] Maria Guadalupe Rodríguez, AC [address] [place] [address] documented as of this encounter Goals Goal [...] documented as of this encounter Care Teams Rectification Printer Relationship Specialty Start Date End Date Edwige Headley MD [address] [place] [address] PCP - General Family Medicine 08/21/22 documented as of this encounter
--- OUTSIDE RECORDS SUMMARY | 2024-07-07 09:48 | XMS_ITS | Encounter Summary ---
Author Organization [facility] Address [address] [place] [address] Care Team Providers Care Field Specialist Name Role Phone Edwige Headley MD Primary Care Provider [phone] Reason for Visit * Reason Comments Med Refill Encounter Details Date Type Department Care Team ([facility] Contact Info) Description 12/04/2022 Refill [facility] MED & PEDS [address] [place] [address] Edwige Headley MD [address] [place] [address] Social History Tobacco Use Types Packs/Day Years Used Date Smoking Tobacco: Never Depression Answer Date Recorded Patient Health Questionnaire-9 Score 24 08/21/2022 Depression Answer Date Recorded Patient Health Questionnaire-2 Score 6 08/21/2022 Comments Unknown Sex and Gender Information Value Date Recorded Sex Assigned at Female 08/20/2022 3:54 PM EDT Legal Sex Female 1:29 PM EST Gender Identity Female 08/20/2022 3:54 PM EDT Sexual Orientation Straight 08/20/2022 3: 54 PM EDT COVID-19 Exposure Response Date Recorded In the last 10 days, have yo u been in contact with someone who was confirmed or suspected to have Coronavirus/COVID-19? Unable to assess 11/06/2022 2:43 PM EDT documented as of this encounter Plan of Treatment Upcoming Encounters Date Type Department Care Team ([facility] Contact Info) Description 08/24/2024 2:30 PM EDT Clinical Support [facility] MED & PEDS [address] [place] [address] Maria Guadalupe Rodríguez, AC [address] [place] [address] documented as of this encounter Goals Goal [...] Assessment Noted Time PHQ-9 Depression Total Score: 24 023 9:14 AM EDT documented as of this encounter Care Teams Field Specialist Relationship Specialty Start Date End Date Edwige Headley MD [address] [place] [address] PCP - General Family Medicine 08/21/22 documented as of this encounter
--- OUTSIDE RECORDS SUMMARY | 2024-07-07 09:48 | XMS_ITS | Encounter Summary ---
Author Organization [employer] Address [address] [facility] [address] [facility] 7[address] [place] [address] Care Team Providers Care Clay Miner Name Role Phone Edwige Headley MD Primary Care Provider [phone] Encounter Details Date Type Department Care Team ([facility] Contact Info) Description 11/03/2022 Abstract [place] [employer] [address] [place] [address] Edwige Headley MD [address] [place] [address] Social History Tobacco Use Types Packs/Day Years [...] Upcoming Encounters Date Type Department Care Team ([facility] Contact Info) Description 08/24/2024 2:30 PM EDT Clinical Support [facility] CHC MED & PEDS [address] [place] [address] Maria Guadalupe Rodríguez RN [address] [place] [address] documented as of this encounter Goals Goal Patient Goal Type Associated Problems Recent Progress Patient-Stated? Author Use the inhalers as prescribed by provider; Flovent HFA scheduled and albuterol as needed General No Marcel Garcia, LeD Take your medication every day Lifestyle No Marcel Garcia PharmD documented as of this encounter Visit Diagnoses Not on filedocumented in this encounter Additional Health Concerns Assessment Noted Time PHQ-9 Depression Total Score: 24 023 9:14 AM EDT documented as of this encounter Care Teams Clay Miner Relationship Specialty Start Date End Date Edwige Headley MD [address] [place] [address] PCP - General Family Medicine 08/21/22 documented as of this encounter
--- OUTSIDE RECORDS SUMMARY | 2024-07-07 09:48 | XMS_ITS | Encounter Summary ---
Author Organization [employer] Address [address] [place] [address] Care Team Providers Care Relish Maker Name Role Phone Edwige Headley MD Primary Care Provider [phone] Encounter Details Date Type Department Care Team ([facility] st Contact Info) Description 10/22/2022 Telephone [facility] MED & PEDS [address] [place], [place] [id number] Edwige Headley MD [address] [place] [address] Social History Tobacco Use Types Packs/Day Years [...] suspected to have Coronavirus/COVID-19? Unable to assess 10/02/2022 10:12 AM EDT documented as of this encounter Miscellaneous Notes * Telephone Encounter - Elizabeth Cadena - 10/23/2022 4:05 PM EDT Tc from pt requesting a call in regards to message above. (East Timorese speaker) * Telephone Encounter - Inez Martinez - 10/22/2022 3:31 PM EDT TC from pt requesting help to schedule her gastro appt . Please call to clarify . documented in this encounter Plan of Treatment Upcoming Encounters Date Type Department Care Team (Late st Contact Info) Description 08/24/2024 2:30 PM EDT Clinical Support [facility] MED & PEDS [address] [place] [address] Maria Guadalupe Rodríguez, RN [address] [place] [address] documented as of this encounter Goals Goal [...] documented as of this encounter Care Teams Relish Maker Relationship Specialty Start Date End Date Edwige Headley MD [address] [place] [address] PCP - General Family Medicine 08/21/22 documented as of this encounter
--- OUTSIDE RECORDS SUMMARY | 2024-07-07 09:49 | XMS_ITS | Encounter Summary ---
Author Organization [employer] Address [address] [place] [address] Care Team Providers Care Finance Analyst Name Role Phone Edwige Headley MD Primary Care Provider [phone] Encounter Details Date Type Department Care Team (Latest Contact Info) Description 06/19/2024 Travel Social History Tobacco Use Types Packs/Day Years [...] Description 08/24/2024 2:30 PM EDT Clinical Support [facility] MED & PEDS [address] [place] [address] Maria Guadalupe Rodríguez, RN [address] [place] [address] documented as of this encounter Goals Goal [...] documented as of this encounter Care Teams Finance Analyst Relationship Specialty Start Date End Date Edwige Headley MD [address] [place] [address] PCP - General Family Medicine 08/21/22 documented as of this encounter
--- OUTSIDE RECORDS SUMMARY | 2024-07-07 09:49 | XMS_ITS | Encounter Summary ---
Author Organization [employer] Address [address] [place] [address] Care Team Providers Care Substation Inspector Name Role Phone Edwige Headley MD Primary Care Provider [phone] Reason for Visit * Reason Comments Med Refill Encounter Details Date Type Department Care Team ([facility] st Contact Info) Description 07/05/2024 Refill [facility] MED & PEDS [address] [place], [place] [phone] Edwige Headley MD [address] [place] [address] Social History Tobacco Use Types Packs/Day Years [...] Description 08/24/2024 2:30 PM EDT Clinical Support [facility] MED & PEDS [address] [place] [address] Maria Guadalupe Rodríguez, RN [address] [place] [address] documented as of this encounter Goals Goal [...] documented as of this encounter Care Teams Substation Inspector Relationship Specialty Start Date End Date Edwige Headley MD [address] [place] [address] PCP - General Family Medicine 08/21/22 documented as of this encounter
--- OUTSIDE RECORDS SUMMARY | 2024-07-07 09:49 | XMS_ITS | Encounter Summary ---
Author Organization [employer] Address [address] [place] [address] Care Team Providers Care Family And Consumer Education Teacher Name Role Phone Edwige Headley MD Primary Care Provider Reason for Visit * Reason Onset Date Comments Med Refill 06/13/2024 Encounter Details Date Type Department Care Team ([facility] st Contact Info) Description 06/13/2024 Refill [facility] CH[facility] MED & PEDS [address] [place] [address] Edwige Headley MD [address] [place] [address] Fibromyalgia Social History Tobacco Use Types Packs/Day Years [...] encounter Miscellaneous Notes * Telephone Encounter - Neda Juarez - 06/13/2024 12:36 PM EST TC from pt requesting medication refill. Medications needing refill : traMADol (Ultram) 50 MG tablet To be sent to: [facility] documented in this encounter Plan of Treatment Upcoming Encounters Date Type Department Care Team (Late st Contact Info) Description 08/24/2024 2:30 PM EDT Clinical Support [facility] CHC MED & PEDS [address] [place] [address] Maria Guadalupe Rodríguez, AC [address] [place] [address] documented as of this encounter Goals Goal Patient Goal Type Associated Problems Recent Progress Patient-Stated? Author Use the inhalers as prescribed by provider; Flovent HFA scheduled and albuterol as needed General No Marcel Garcia, PharmD Take your medication every day Lifestyle No Marcel Garcia, PharmD documented as of this encounter Visit Diagnoses Diagnosis Fibromyalgia Unspecified myalgia and myositis documented in this encounter Additional Health Concerns Assessment Noted Time PHQ-9 Depression Total Score: 10 024 12:52 PM EDT documented as of this encounter Care Teams Family And Consumer Education Teacher Relationship Specialty Start Date End Date Edwige Headley MD [address] [place] [address] PCP - General Family Medicine 08/21/22 documented as of this encounter
--- OUTSIDE RECORDS SUMMARY | 2024-07-07 09:49 | XMS_ITS | Encounter Summary ---
Author Organization [employer] Address [address] [place] [address] Care Team Providers Care Punch Press Setter Name Role Phone Edwige Headley MD Primary Care Provider Encounter Details Date Type Department Care Team (Latest Contact Info) Description 06/20/2024 Travel Social History Tobacco Use Types Packs/Day [...] Description 08/24/2024 2:30 PM EDT Clinical Support [facility] MED & PEDS [address] [place] [address] Maria Guadalupe Rodríguez, RN [address] [place] [address] documented as of this encounter Goals Goal [...] documented as of this encounter Care Teams Punch Press Setter Relationship Specialty Start Date End Date Edwige Headley MD [address] [place] [address] PCP - General Family Medicine 08/21/22 documented as of this encounter
--- OUTSIDE RECORDS SUMMARY | 2024-07-07 09:49 | XMS_ITS | Data Portability ---
Author Organization [employer] [facility], [place] in - [employer] Address [address] [place] [id number] Care Team Providers Care Emergency Room Physician Assistant Name Role Phone HIM [facility] OTHER [facility] OTHER Assessment Encounter Date Assessment Date Assessment LastModified by Organization Details LastModified Time 10/13/2023 10/13/2023 I have reviewed and agree with the assessment and plan as documented by the business systems manager. I provided real-time medical direction for this encounter and was immediately available to provide additional phone-based assistance as needed. 78F presenting with mild contact dermatitis to chest wall after using L'Oreal cream. No blistering noted, no oozing or discharge. Mild erythema. No concern for cellulitis. Recommend supportive care by discontinuing cream, switching to barrier cream for sensitive skin and applying hydrocortisone as needed. Red flags discussed. paysola Not available 10/13/2023 18:22:50 Plan of Treatment Reminders Order Date Submit Date Provider Last Modified By Organization Details Last Modified Time Details Appointments None recorded. Lab None recorded. Referral None recorded. Procedures None recorded. Surgeries None recorded. Imaging None recorded. Medication Orders hydrocortis one 1 % topical cream 2023 024 [facility], [address] [place] [address], [phone], 14:48:38 Patient TargetsNo targets recorded. Patient InstructionsNo instructions recorded. Reason for Referral None Reported. Medical Equipment None Reported. Medications Name Sig Start Date Stop Date Status Note LastModified by Organization Details LastModified Time medbox status USE DIRECTED active Not Available Not Available No t Available multivitamin tablet TAKE 1 TABLET BY MOUTH EVERY MORNING active Not Available Not Available No t Available losartan 50 mg tablet TAKE 1 TABLET BY MOUTH AT BEDTIME active Not Available Not Available No t Available quetiapine 25 mg tablet TAKE 1 TABLET BY MOUTH AT BEDTIME active Not Available Not Available No t Available amoxicillin 500 mg capsule TAKE 1 CAPSULE BY MOUTH EVERY 6 HOURS UNTIL GONE active Not Available Not Available N ot Available metformin 500 mg tablet TAKE 1 TABLET BY MOUTH THREE TIMES DAILY IN THE MORNING, AT NOON, AND IN THE EVENING active Not Available Not Available No t Available venlafaxine ER 37.5 mg capsule,exten ded release 24 hr TAKE 1 CAPSULE BY MOUTH EVERY MORNING WITH FOOD active Not Available Not Available No t Available doxycycline hyclate 100 mg capsule TAKE 1 CAPSULE BY MOUTH TWICE DAILY UNTIL FINISHED active Not Available Not Available No t Available albuterol sulfate 2.5 mg/3 mL (0.083 %) solution for nebulization INHALE 1 AMPULE USING A NEBULIZER EVERY 4 HOURS NEEDED FOR WHEEZING active Not Available Not Available No t Available cetirizine 10 mg tablet TAKE 1 TABLET BY MOUTH ONCE DAILY IN THE MORNING active Not Available Not Available No t Available fluconazole 150 mg tablet TAKE 1 TABLET BY MOUTH ONCE. active Not Available Not Available No t Available sulfamethoxaz ole 400 mg-trimethopr im 80 mg tablet TAKE 1 TABLET BY MOUTH AT BEDTIME active Not Available Not Available No t Available hydrocortison e 1 % topical ointment APPLY TOPICALLY TO AFFECTED AREA(S) TWICE DAILY active Not Available Not Available No t Available sucralfate 100 mg/mL oral suspension TAKE 10 ML BY MOUTH EVERY 8 HOURS NEEDED WITH FOOD active Not Available Not Available No t Available famotidine 40 mg tablet TAKE 1 TABLET BY MOUTH AT BEDTIME active Not Available Not Available No t Available prednisone 20 mg tablet TAKE 1 TABLET BY MOUTH EVERY DAY IN THE MORNING FOR 5 DAYS active Not Available Not Available N ot Available aspirin 81 mg tablet,delaye d release TAKE 1 TABLET BY MOUTH EVERY MORNING active Not Available Not Available No t Available tramadol 50 mg tablet TAKE 1 TABLET BY MOUTH EVERY 8 HOURS NEEDED FOR SEVERE PAIN active Not Available Not Available No t Available oxycodone-maurisio taminophen 5 mg-325 mg tablet TAKE 1 TABLET BY MOUTH EVERY 6 HOURS NEEDED FOR PAIN active Not Available Not Available No t Available calcium 600 mg (as calcium carbonate 1,500 mg) tablet TAKE 1 TABLET BY MOUTH TWICE DAILY IN THE MORNING AND IN THE EVENING WITH FOOD active Not Available Not Available No t Available amitriptyline 25 mg tablet TAKE 1 TABLET BY MOUTH AT BEDTIME active Not Available Not Available No t Available Observe MedicalTouch Ultra Test strips TEST BLOOD SUGAR EVERY MORNING active Not Available Not Available No t Available benzonatate 100 mg capsule TAKE 1 CAPSULE BY MOUTH TWICE DAILY NEEDED FOR COUGH active Not Available Not Available No t Available hydrocortison e 1 % topical cream APPLY A THIN LAYER TOPICALLY TO AFFECTED AREA(S) TWICE DAILY active Not Available Not Available No t Available lidocaine 5 % topical patch APPLY 1 PATCH TOPICALLY TO SKIN, LEAVE ON FOR 12 HOURS AND OFF FOR 12 HOURS DIRECTED active Not Available Not Available No t Available losartan 25 mg tablet TAKE 1 TABLET BY MOUTH EVERY MORNING active Not Available Not Available No t Available gabapentin 300 mg capsule TAKE 1 CAPSULE BY MOUTH THREE TIMES DAILY active Not Available Not Available No t Available sertraline 25 mg tablet TAKE 1 TABLET BY MOUTH EVERY MORNING active Not Available Not Available No t Available omeprazole 20 mg capsule,delay ed release TAKE 1 CAPSULE BY MOUTH ONCE DAILY FOR 4 WEEKS active Not Available Not Available No t Available montelukast 10 mg tablet TAKE 1 TABLET BY MOUTH AT BEDTIME active Not Available Not Available No t Available levalbuterol 1.25 mg/3 mL solution for nebulization INHALE 1 AMPULE USING A NEBULIZER EVERY 4 TO 6 HOURS NEEDED SHORTNESS OF BREATH OR FOR WHEEZING active Not Available Not Available No t Available estradiol 0.01% (0.1 mg/gram) vaginal cream INSERT PEA SIZED AMOUNT (=1 GRAM) TO URETHRA THREE TIMES PER WEEK DIRECTED FOR 30 DAYS active Not Available Not Available No t Available celecoxib 100 mg capsule TAKE 1 CAPSULE BY MOUTH TWICE DAILY IN THE MORNING AND IN THE EVENING active Not Available Not Available No t Available Ventolin HFA 90 mcg/actuation aerosol inhaler INHALE 2 PUFFS BY MOUTH EVERY 4 HOURS NEEDED FOR WHEEZING active Not Available Not Available No t Available rosuvastatin 20 mg tablet TAKE 1 TABLET BY MOUTH AT BEDTIME active Not Available Not Available No t Available tadalafil 5 mg tablet TAKE 1 TABLET BY MOUTH ONCE DAILY active Not Available Not Available No t Available memantine 5 mg tablet TAKE 1 TABLET BY MOUTH TWICE DAILY IN THE MORNING AND IN THE EVENING active Not Available Not Available No t Available Flovent HFA 110 mcg/actuation aerosol inhaler INHALE 1 PUFFS BY MOUTH TWICE DAILY IN THE MORNING AND AT BEDTIME. RINSE MOUTH AFTER USING. active Not Available Not Available No t Available pregabalin 75 mg capsule TAKE 1 CAPSULE BY MOUTH TWICE DAILY active Not Available Not Available No t Available Advair HFA 230 mcg-21 mcg/actuation aerosol inhaler INHALE 2 PUFFS BY MOUTH EVERY TWELVE HOURS active Not Available Not Available No t Available diclofenac 1 % topical gel APPLY 2 GRAMS TOPICALLY TO AFFECTED AREA(S) THREE TIMES DAILY DIRECTED active Not Available Not Available No t Available GaviLyte-G 236 gram-22.74 gram-6.74 gram-5.86 gram oral solution MIX WITH WATER AND DRINK 240 ML BY MOUTH EVERY 10 MINUTES UNTIL FECAL EFFLUENT IS CLEAR DIRECTED active Not Available Not Available No t Available Vitamin D3 50 mcg (2,000 unit) capsule TAKE 1 CAPSULE BY MOUTH EVERY MORNING active Not Available Not Available No t Available Myrbetriq 25 mg tablet,extend ed release TAKE 1 TABLET BY MOUTH EVERY DAY active Not Available Not Available No t Available Incruse Ellipta 62.5 mcg/actuation powder for inhalation INHALE 1 PUFF BY MOUTH EVERY DAY AT THE SAME TIME active Not Available Not Available No t Available OneTouch Ultra2 Meter USE DIRECTED EVERY MORNING active Not Available Not Available No t Available OneTouch Delica Plus Lancet 33 gauge TEST BLOOD SUGAR EVERY MORNING active Not Available Not Available No t Available Trelegy Ellipta 200 mcg-62.5 mcg-25 mcg powder for inhalation INHALE 1 PUFF BY MOUTH EVERY DAY active Not Available Not Available No t Available Vitals Date Recorded Oxygen saturation Oxygen saturation in Arterial blood by Pulse oximetry Body weight Respiratory rate Body temperature Heart rate Systolic blood pressure Diastolic blood pressure Provider Name and Address Organization Details Last Updated DateTime 4 99 % 99 % 65458.6 16 g 16 /min 98.1 [degF] 86 /min 138 mm[Hg] 90 mm[Hg] Not Available [employer] 4 18:14:31 Social History None recorded. Functional Status None recorded. Mental Status None recorded. Family History Nothing Reported. Medical History No medical history recorded. Gynecological HistoryNo gynecological history recorded. Obstetrics History GPAL:G 0 P 0 0 0 0 Past Encounters Encounter ID Performer Location Encounter Start Date Encounter Closed Date Diagnosis/Indication Diagnosis SNOMED-CT Code Diagnosis ICD10 Code Diagnosis Note [id number] Rita Haile MD [facility] - [facility] [address] [place] [address] 10/13/2023 18:14:24 10/14/2023 10:34:19 Contact dermatitis 62199115 L25.9 Health Concerns Section Related Observation LastModified by Organization Detai ls LastModified Time None Recorded Concern Status LastModified by Organization Details LastModified Time None Recorded Advance Directives Directive None Recorded Payers Encounter Date Sequence Insurance Name Policy Number Policy Sifuentes Covered Member ID Sifuentes Member ID Guarantor Name 10/13/[address] [facility] - DOS ON OR AFTER 2022 - DUAL ELIGIBLE - [employer] AND ONE [employer] (MEDICARE REPLACEMENT/ADV ANTAGE - HMO) Ed Hoffmann [id number] Ed Hoffmann Notes Date Note Type Note Provider Name and Address Organization Details Recorded Time 10/13/2023 text/html HPI: Patient with history listed with Alzheimer's Dementia but able to make all needs known accurately. Patient with reports of 7 day skin irritation of face and neck following use of new product. Skin not improved after stopping use and washing area now with fine rash that stings. .................... .................... .................... .................... .................... .................... .................... . CRC Nurse Triage Notes (Marie Woods): Comments: CRC RN DID NOT NEED FURTHER INFO .................... .................... .................... .................... .................... .................... .................... . Tutorial Laboratory Supervisor Note From Michael Nielson: Pt co rash/redness with itching burning to skin after using L? O r? ? ?al cream. Pt has discontinued use. Pt using cetafil lotion with no relief. Pt denies pain , NVD cp sob edema. Baseline vitals assessed. Rash assessed, area pink red , no bumps or raised skin , no wheeping or bleeding. Afebrile. [facility] contacted and hydrocortisone RX called in for use 2x per day topical. Pt advised to follow up with pcp. Pt eduction on signs indicating the ER. .................... .................... .................... .................... .................... .................... .................... . Disposition: Fulfilled Rita Haile MD [address] [facility], [place], [address], [employer] 10/13/2023 19:19:35 OBGyn Episode No OBEpisode recorded.
--- OUTSIDE RECORDS SUMMARY | 2024-07-07 09:49 | XMS_ITS | Encounter Summary ---
Author Organization [employer] Address [address] [place] [address] Care Team Providers Care Nuclear Operator Name Role Phone Edwige Headley MD Primary Care Provider [phone] Reason for Visit * Reason Comments controlled substance treatment Encounter Details Date Type Department Care Team ([facility] Contact Info) Description 06/20/2024 1:00 PM EST Clinical Support [facility] CH[facility] MED & PEDS [address] [place] [address] Maria Guadalupe Rodríguez, RN [address] [place] [address] Fibromyalgia Social History Tobacco Use Types Packs/Day [...] t he electric, gas, oil or water [employer] threatened to shut off services in your home? No 03/02/2023 Depression Answer Date Recorded Patient Health Questionnaire-2 Score 4 10/29/2023 Comments Unknown Sex and Gender Information Value Date Recorded Sex Assigned at Female 08/20/2022 3:54 PM EDT Legal Sex Female 1:29 PM EST Gender Identity Female 08/20/2022 3:54 PM EDT Sexual Orientation Straight 08/20/2022 3: 54 PM EDT documented as of this encounter Progress Notes * Maria Guadalupe Rodríguez RN - 06/20/2024 1:00 PM EST S: FINGERNAIL TECHNICIAN initial [place]. VINCENT [place] interpreting. Prescribed Tramadol 50mg PO q12h PRN. States has been taking as prescribed. Denies ETOH, nicotine/illicit drugs use. Currently rates pain a 9/10 and states medication is 40% effective at alleviating pain. Current pain sites are shoulders, R elbow, knees,L thigh. Last PCP f/u 02/25/24. No questions/ concerns at this time. FINGERNAIL TECHNICIAN Agreement initiated today. O: [employer] verified today. Rx last filled 04/18/24. Pill count not performed as patient does not have any pills left, 0 expected. BPI form completed today. Pain severity score of (9), activity interference score of (4). Utox performed, negative for all tested substances, as expected. TONY 7 screening done, total score 4, mild anxiety. Opioid Risk Tool performed, low risk. A: FINGERNAIL TECHNICIAN Agreement Initiation: Opioid dependence related to chronic pain. P: Patient to continue taking medication only as prescribed; Next FINGERNAIL TECHNICIAN RV appointment scheduled for 08/24/24 @ 2:30pm. F/U sooner PRN. Patient verbalized understanding and agreed to plan. documented in this encounter Plan of Treatment Upcoming Encounters Date Type Department Care Team ([facility] st Contact Info) Description 08/24/2024 2:30 PM EDT Clinical Support [facility] MED & PEDS [address] [facility] [place] [address] Maria Guadalupe Rodríguez RN [address] [place] [address] documented as of this encounter Goals Goal Patient Goal Type Associated Problems Recent Progress Patient-Stated? Author Use the inhalers as prescribed by provider; Flovent HFA scheduled and albuterol as needed General No Marcel Garcia, Emigdio Take your medication every day Lifestyle No Marcel Garcia PharmD documented as of this encounter Procedures Procedure Name Priority Date/Time Associated Diagnosis Comments POCT SENAIT-14 URINE DRUG SCREEN Routine 06/20/2024 2:05 PM EST Fibromyalgia documented in this encounter Results * POCT SENAIT-14 Urine Drug Screen (06/20/2024 2:05 PM EST) Urine Urine specimen obtained by clean catch procedure / Unknown 06/20/2024 2:05 PM EST Narrative Maria Guadalupe Rodríguez RN - 06/20/2024 2:05 PM EST negative for THC, MOP, OXY, ANOTN, MET, AMP, BZO, BAR, MTD, BUPG, TCA, MDMA, PCP, PPX. Lot# [id number] Exp: 04-22-25 us Edwige Headley MD POINT OF CARE TEST ENTER/EDIT ORDERABLES Final Result documented in this encounter Visit Diagnoses Diagnosis Fibromyalgia Unspecified myalgia and myositis documented in this encounter Additional Health Concerns Assessment Noted Time PHQ-9 Depression Total Score: 10 10/28/ 024 12:52 PM EDT documented as of this encounter Care Teams Nuclear Operator Relationship Specialty Start Date End Date Edwige Headley MD [address] [place] [address] PCP - General Family Medicine 08/21/22 documented as of this encounter
--- OUTSIDE RECORDS SUMMARY | 2024-07-07 09:49 | XMS_ITS | Encounter Summary ---
Author Organization [employer] Address [address] [place] [address] Care Team Providers Care Ice Resurfacing Machine Operators Name Role Phone Edwige Headley MD Primary Care Provider [phone] Reason for Visit * Reason Comments Med Refill Encounter Details Date Type Department Care Team ([facility] st Contact Info) Description 06/26/2024 Refill [facility] CHC MED & PEDS [address] [place], [place] [phone] Edwige Headley MD [address] [place] [address] Social History Tobacco Use Types Packs/Day Years [...] [facility] [address] [place] [address] Maria Guadalupe Rodríguez, RN [address] [place] [address] documented as of this encounter Goals Goal [...] documented as of this encounter Care Teams Ice Resurfacing Machine Operators Relationship Specialty Start Date End Date Edwige Headley MD [address] [place] [address] PCP - General Family Medicine 08/21/22 documented as of this encounter
--- OUTSIDE RECORDS SUMMARY | 2024-07-07 09:49 | XMS_ITS | Encounter Summary ---
Author Organization [employer] Address [address] [place] [address] Care Team Providers Care General Superintendent Name Role Phone Edwige Headley MD Primary Care Provider [phone] Reason for Visit * Reason Comments Med Refill Encounter Details Date Type Department Care Team ([facility] st Contact Info) Description 10/16/2023 Refill [facility] CHC MED & PEDS [address] [place], [place] [phone] Edwige Headley MD [address] [place] [address] Social History Tobacco Use Types Packs/Day Years Used Date Smoking Tobacco: Never Depression Answer Date Recorded Patient Health Questionnaire-9 Score 24 08/21/2022 Housing Stability Answer Date Recorded What is [...] 2:30 PM EDT Clinical Support [facility] & PEDS [address] [place] [address] Maria Guadalupe Rodríguez, RN [address] [place] [address] documented as of this encounter Goals Goal [...] documented as of this encounter Care Teams General Superintendent Relationship Specialty Start Date End Date Edwige Headley MD [address] [place] [address] PCP - General Family Medicine 08/21/22 documented as of this encounter
--- OUTSIDE RECORDS SUMMARY | 2024-07-07 09:49 | XMS_ITS | Encounter Summary ---
Author Organization [employer] Address [address] [place] [address] Care Team Providers Care Medical Record Specialist Name Role Phone Edwige Headley MD Primary Care Provider [phone] Reason for Visit * Reason Comments Med Refill Encounter Details Date Type Department Care Team ([facility] st Contact Info) Description 08/13/2023 Refill [facility] CH[facility] MED & PEDS [address] [place], [place] [phone] Edwige Headley MD [address] [place] [address] Social History Tobacco Use Types Packs/Day Years [...] Description 08/24/2024 2:30 PM EDT Clinical Support [facility] MED & PEDS [address] [place] [address] Maria Guadalupe Rodríguez, RN [address] [place] [address] documented as of this encounter Goals Goal [...] documented as of this encounter Care Teams Medical Record Specialist Relationship Specialty Start Date End Date Edwige Headley MD [address] [place] [address] PCP - General Family Medicine 08/21/22 documented as of this encounter
--- OUTSIDE RECORDS SUMMARY | 2024-07-07 09:49 | XMS_ITS | Encounter Summary ---
Author Organization [employer] Address [address] [place] [address] Care Team Providers Care Product Management Specialist Name Role Phone Edwige Headley MD Primary Care Provider [phone] Reason for Visit * Reason Onset Date Comments Med Refill 06/20/2024 Encounter Details Date Type Department Care Team ([facility] st Contact Info) Description 06/20/2024 Refill [facility] MED & PEDS [address] [place] [address] Maria Guadalupe Rodríguez, RN [address] [place] [address] Fibromyalgia Social History Tobacco Use Types Packs/Day [...] Description 08/24/2024 2:30 PM EDT Clinical Support [facility] CHC MED & PEDS [address] [place] [address] Maria Guadalupe Rodríguez, RN [address] [place] [address] documented as of this encounter Goals Goal [...] documented as of this encounter Care Teams Product Management Specialist Relationship Specialty Start Date End Date Edwige Headley MD [address] [place] [address] PCP - General Family Medicine 08/21/22 documented as of this encounter
--- OUTSIDE RECORDS SUMMARY | 2024-07-07 09:49 | XMS_ITS | Encounter Summary ---
Author Organization [employer] Address [address] [place] [address] Care Team Providers Care Slurry Control Tender Name Role Phone Edwige Headley MD Primary Care Provider [phone] Reason for Visit * Reason Onset Date Comments Lab Orders 07/06/2024 Encounter Details Date Type Department Care Team ([facility] st Contact Info) Description 07/06/2024 Telephone [facility] MEDICINE [address] [place] [address] Edwige Headley MD [address] [place] [address] Lab Orders Social History Tobacco Use Types Packs/Day Years [...] encounter Miscellaneous Notes * Telephone Encounter - Zoë Dorantes RN - 07/07/2024 8:39 AM EST TC x 3 placed to pt via [employer] representative personal service (Ace ID#[id number]) to inform a tuberculosis lab order was placed by the provider for her to have done at her convenience. Pt verbalized understanding and deniesquestions or concerns at this time. * Telephone Encounter - Mau Overton - 07/06/2024 4:20 PM EST Tc from pt returning call. Pt needs an Director Building. * Telephone Encounter - Zoë Dorantes RN - 07/06/2024 3:33 PM EST TC placed to pt via [employer] representative personal service (ID#[id number]) to inform a tuberculosis lab order was placed by theprovider for her to have done at her convenience. No answer, LVM to call office back and ask to speak to the nurses. * Telephone Encounter - Gill Helm - 07/06/2024 2:07 PM EST Tc from pt requesting lab order for tuberculosis as needed for program [facility]. documented in this encounter Plan of Treatment Upcoming Encounters Date Type Department Care Team (Late st Contact Info) Description 08/24/2024 2:30 PM EDT Clinical Support [facility] CHC MED & PEDS [address] [place] [address] Maria Guadalupe Rodríguez, RN [address] [place], [place] Scheduled Orders Name Type Priority Associated Diagnoses Orde r Schedule T-SPOT??.TB Lab Routine Encounter for screening for respiratory tuberculosis Expected: 07/06/2024 (Approximate), Expires: 07/06/2025 documented as of this encounter Goals Goal Patient Goal Type Associated Problems Recent Progress Patient-Stated? Author Use the inhalers as prescribed by provider; Flovent HFA scheduled and albuterol as needed General No Marcel Garcia, PharmD Take your medication every day Lifestyle No Marcel Garcia PharmD documented as of this encounter Visit Diagnoses Diagnosis Encounter for screening for respiratory tuberculosis documented in this encounter Additional Health Concerns Assessment Noted Time PHQ-9 Depression Total Score: 10 024 12:52 PM EDT documented as of this encounter Care Teams Slurry Control Tender Relationship Specialty Start Date End Date Edwige Headley MD [address] [place] [address] PCP - General Family Medicine 08/21/22 documented as of this encounter
--- OUTSIDE RECORDS SUMMARY | 2024-07-07 09:49 | XMS_ITS | Encounter Summary ---
Author Organization [employer] Address [address] [place] [address] Care Team Providers Care It Program Engagement Director Name Role Phone Edwige Headley MD Primary Care Provider [phone] Reason for Visit * Reason Onset Date Comments PT-1 03/28/2024 Encounter Details Date Type Department Care Team ([facility] st Contact Info) Description 03/28/2024 Telephone [facility] MED[facility]INE [address] [place] [address] Edwige Headley MD [address] [place] [address] PT-1 Social History Tobacco Use Types Packs/Day Years [...] encounter Miscellaneous Notes * Telephone Encounter - Tiburcio Thibodeaux - 03/28/2024 1:54 PM EST Patient calling requesting PT1 Home Address verified: Y/N: Yes Provider name or facility name: [facility] Facility Address: [address] [place] [address] Escort needed: Y/N: Yes Do you have a wheelchair: Y/N: No If yes- Manual or electric: (Uses Walker) Visits: Once a month documented in this encounter Plan of Treatment Upcoming Encounters Date Type Department Care Team (Late st Contact Info) Description 08/24/2024 2:30 PM EDT Clinical Support [facility] [address] [place] [address] Maria Guadalupe Rodríguez RN [address] [place] [address] documented as of this encounter Goals Goal [...] documented as of this encounter Care Teams It Program Engagement Director Relationship Specialty Start Date End Date Edwige Headley MD [address] [place] [phone] PCP - General Family Medicine 08/21/22 documented as of this encounter
--- OUTSIDE RECORDS SUMMARY | 2024-07-07 09:49 | XMS_ITS | Encounter Summary ---
Author Organization [employer] Address [address] [facility] 7 [place] [address] Care Team Providers Care Ict Analyst Name Role Phone Edwige Headley MD Primary Care Provider [phone] Reason for Visit * Reason Comments Annual Exam Encounter Details Date Type Department Care Team ([facility] st Contact Info) Description 06/19/2024 2:45 PM EST Office Visit [facility] [address] [place] [address] Radha Renee MD [address] [place] [address] Fibromyalgia (Primary Dx); Type 2 diabetes mellitus with hyperglycemia, without long-term current use of insulin (CMS/HCC); Chronic diastolic heart failure (CMS/HCC); Chronic obstructive pulmonary disease, unspecified COPD type (CMS/HCC) Social History Tobacco Use Types Packs/Day Years [...] PM EDT documented as of this encounter Last Filed Vital Signs Vital Sign Reading [...] Mass Index 24.02 06/19/2024 2:32 PM EST documented in this encounter Progress Notes * Radha Renee MD - 06/19/2024 2:45 PM EST Subjective Patient ID: Ed Hoffmann is a 79 y.o. female who presents for Annual Exam. HPI Patient is here for an extended office visit. Multiple complaints 1)Patient is concerned because she is taking many medications including Celebrex, cyclobenzaprine. She has history of fibromyalgia and reports having generalized bodyaches and now has bilateral wristand hands pain knee pain since she stopped Celebrex and cyclobenzaprine 2) history of diabetes. Patient claims compliance to her current medication. No reported episode ofhypoglycemia. States that she had her eye exam recently. 3) recently experienced Raynaud's phenomenon. Started on Norvasc with great improvement. 4) history of dizziness and migraine headache with memory disturbances. Patient was referred by herP to a new neurologist but has not received an appointment yet Patient Active Problem List Diagnosis ??? Diabetes mellitus due to underlying condition with hyperglycemia, without long-term current useof insulin ([facility]) ??? Urinary incontinence ??? Moderate persistent asthma ??? Alzheimer's dementia (CMS/[facility]) ??? Chronic diastolic heart failure (CMS/HCC) ??? Vertigo ??? Coronary artery disease of [place] heart with stable angina pectoris (CMS/[facility]) ??? CKD (chronic kidney disease), stage II ??? Gastroesophageal reflux disease ??? Type 2 diabetes mellitus with hyperglycemia, without long-term current use of insulin (CMS/[facility]) ??? Hypertension ??? Headache, common migraine, intractable ??? Chronically dry eyes, bilateral ??? Generalized anxiety disorder ??? Breast pain, left ??? Periumbilical abdominal pain ??? Ingrown fingernail ??? Anxiety ??? Rectal tenesmus ??? Vaginal itching ??? Dysphagia ??? Fibromyalgia ??? Chronic left ear pain ??? Hearing loss Current Outpatient Medications on File Prior to Visit Medication Sig Dispense Refill ??? albuterol (2.5 MG/3ML) 0.083% nebulizer solution Take 3 mL (2.5 mg) by nebulization every 4 (four) hours if needed for wheezing. 75 mL 3 ??? albuterol 108 (90 Base) MCG/ACT inhaler Inhale 2 puffs every 4 (four) hours if needed for wheezing. 18 g 5 ??? amLODIPine (Norvasc) 5 MG tablet Take 1 tablet (5 mg) by mouth Once per day. 30 tablet 11 ??? Aspirin Low Dose 81 MG EC tablet TAKE 1 TABLET BY MOUTH EVERY MORNING 90 tablet 1 ??? Blood Glucose Monitoring Suppl (ONE TOUCH ULTRA 2) w/Device kit 1 kit in the morning. Please dispense glucose monitor that is covered by patients insurances. Substitute as needed. 1 kit 0 ??? Blood Pressure kit 1 Units in the morning. 1 kit 0 ??? calcium carbonate 1500 (600 Ca) MG tablet TAKE 1 TABLET BY MOUTH TWICE DAILY IN THE MORNING ANDIN THE EVENING WITH FOOD 180 tablet 1 ??? cetirizine (ZyrTEC) 10 MG tablet Take 1 tablet (10 mg) by mouth in the morning. 30 tablet 0 ??? D3 Super Strength 50 MCG (2000 UT) capsule TAKE 1 CAPSULE BY MOUTH EVERY DAY FOR 3 MONTHS ??? Diclofenac Sodium 1 % gel APPLY 2 GRAMS TOPICALLY TO AFFECTED AREA(S) THREE TIMES DAILY DIRECTED 350 g 1 ??? estradiol (Estrace) 0.1 MG/GM vaginal cream Insert 1 g into the vagina in the morning. 42.5 g 0 ??? famotidine (Pepcid) 40 MG tablet TAKE 1 TABLET BY MOUTH AT BEDTIME 90 tablet 1 ??? gabapentin (Neurontin) 300 MG capsule TAKE 1 CAPSULE BY MOUTH THREE TIMES DAILY 90 capsule 2 ??? glucose blood test strip Use as directed 3 times daily 100 each 11 ??? hydrocortisone 1 % ointment Apply topically 2 times daily. 30 g 0 ??? Lanc[employer] Devices (Autolet) lancing device 1 each by Other route in the morning. Please dispense glucose monitor that is covered by patients insurances. Substitute as needed. 1 each 0 ??? Lancets (OneTouch Delica Plus [id number]) misc 1 Units in the morning. Please dispense glucose monitor that is covered by patients insurances. Substitute as needed. 100 each 11 ??? levalbuterol (Xopenex) 1.25 MG/3ML nebulizer solution INHALE 1 AMPULE USING A NEBULIZER EVERY 4TO 6 HOURS NEEDED SHORTNESS OF BREATH OR FOR WHEEZING ??? lidocaine (Lidoderm) 5 % patch APPLY 1 PATCH TOPICALLY LEAVE ON FOR 12 HOURS AND OFF FOR 12 HOURS DIRECTED BY 30 patch 5 ??? losartan (Cozaar) 25 MG tablet TAKE 1 TABLET BY MOUTH EVERY MORNING 90 tablet 1 ??? memantine (Namenda) 5 MG tablet ??? metFORMIN (Glucophage) 500 MG tablet TAKE 1 TABLET BY MOUTH THREE TIMES DAILY IN THE MORNING, AT NOON, AND IN THE EVENING 270 tablet 1 ??? montelukast (Singulair) 10 MG tablet TAKE 1 TABLET BY MOUTH AT BEDTIME 90 tablet 1 ??? Multiple Vitamin (Multivitamin) tablet TAKE 1 TABLET BY MOUTH EVERY MORNING 90 tablet 1 ??? omeprazole (PriLOSEC) [address] capsule TAKE 1 CAPSULE BY MOUTH ONCE DAILY FOR 4 WEEKS ??? rosuvastatin (Crestor) 20 MG tablet TAKE 1 TABLET BY MOUTH AT BEDTIME 90 tablet 1 ??? sucralfate (Carafate) 1 GM/10ML suspension TAKE 10 ML BY MOUTH EVERY 8 HOURS NEEDED WITH FOOD 900 mL 1 ??? traMADol (Ultram) 50 MG tablet Take 1 tablet (50 mg) by mouth every 12 (twelve) hours if neededfor severe pain. 42 tablet 0 ??? Trelegy Ellipta 200-62.5-25 MCG/ACT aerosol powder Inhale 1 puff Once per day. ??? VITAMIN E PO Take 1 tablet by mouth in the morning. ??? [DISCONTINUED] celecoxib (CeleBREX) 100 MG capsule TAKE 1 CAPSULE BY MOUTH TWICE DAILY IN THE MORNING AND IN THE EVENING 60 capsule 1 ??? [DISCONTINUED] traMADol (Ultram) 50 MG tablet Take 1 tablet (50 mg) by mouth every 12 (twelve) hours if needed for severe pain. 42 tablet 0 No current facility-administered medications on file prior to visit. Allergies Allergen Reactions ??? Lyrica [Pregabalin] Review of Systems Constitutional: Negative for appetite change, chills and diaphoresis. Eyes: Negative for photophobia, pain and redness. Respiratory: Negative for cough and choking. Cardiovascular: Negative for palpitations and leg swelling. Gastrointestinal: Negative for abdominal pain and anal bleeding. Musculoskeletal: Negative for back pain and gait problem. Objective BP 126/83 (BP Location: Left arm, Patient Position: Sitting, BP Cuff Size: Adult) Pulse 90 Temp98.3 ??F (36.8 ??C) (Oral) Resp 14 Ht 5' (1.524 m) Wt 123 lb (55.8 kg) SpO2 96% BMI 24.02kg/m?? Physical Exam Constitutional: General: She is not in acute distress. Appearance: Normal appearance. She is normal weight. She is not ill-appearing, toxic-appearing or diaphoretic. HENT: Head: Normocephalic. Nose: Nose normal. Mouth/Throat: Mouth: Mucous membranes are moist. Comments: Has braces Eyes: Extraocular Movements: Extraocular movements intact. Pupils: Pupils are equal, round, and reactive to light. Cardiovascular: Rate and Rhythm: Normal rate and regular rhythm. Pulses: Dorsalis pedis pulses are 2+ on the right side and 2+ on the left side. Posterior tibial pulses are 2+ on the right side and 2+ on the left side. Heart sounds: Normal heart sounds. No murmur heard. Pulmonary: Effort: Pulmonary effort is normal. No respiratory distress. Breath sounds: Normal breath sounds. No stridor. Abdominal: General: Bowel sounds are normal. There is no distension. Palpations: Abdomen is soft. There is no mass. Tenderness: There is no abdominal tenderness. There is no guarding. Musculoskeletal: General: Normal range of motion. Cervical back: Normal range of motion. Right lower leg: No edema. Left lower leg: No edema. Right foot: Normal range of motion. No deformity, bunion, Charcot foot or prominent metatarsal heads. Left foot: Normal range of motion. No deformity, bunion, Charcot foot or prominent metatarsal heads. Feet: Right foot: Protective Sensation: 7 sites tested. 7 sites sensed. Skin integrity: Skin integrity normal. No ulcer, blister, skin breakdown, erythema, warmth, callus or dry skin. Toenail Condition: Right toenails are normal. Left foot: Protective Sensation: 7 sites tested. 7 sites sensed. Skin integrity: Skin integrity normal. No ulcer, blister, skin breakdown, erythema, warmth, callus or dry skin. Toenail Condition: Left toenails are normal. Skin: Capillary Refill: Capillary refill takes less than 2 seconds. Findings: No rash. Neurological: Mental Status: She is alert and oriented to person, place, and time. Sensory: No sensory deficit. Gait: Gait abnormal. Psychiatric: Mood and Affect: Mood normal. Behavior: Behavior normal. Assessment/Plan Diagnoses and all orders for this visit: Fibromyalgia Comments: Resume cyclobenzaprine and Celebrex Regular eye aerobic exercises as tolerated Orders: - cyclobenzaprine (Flexeril) 10 MG tablet; Take 1 tablet (10 mg) by mouth 3 times daily for 10 days. - celecoxib (CeleBREX) 100 MG capsule; Take 1 capsule (100 mg) by mouth 2 times daily. Type 2 diabetes mellitus with hyperglycemia, without long-term current use of insulin ([facility]) Comments: Stable No change Continue with the low-carb diet Orders: - POCT glucose manually resulted - Albumin, Random Urine W/Creatinine; Future Chronic diastolic heart failure (CMS/HCC) Comments: Stable Heart failure compensated Follows up with cardiology. Last seen in February 07 Advised to continue following up as scheduled. Orders: - Hepatitis C Antibody with Reflex to HCV, RNA, Quantitative, Real-Time PCR; Future Chronic obstructive pulmonary disease, unspecified COPD type (CMS/HCC) Comments: Stable Follow-up with pulmonology documented in this encounter Plan of Treatment Upcoming Encounters Date Type Department Care Team (Late st Contact Info) Description 08/24/2024 2:30 PM EDT Clinical Support [facility] [address] [place] [address] Maria Guadalupe Rodríguez RN [address] [place] [address] Scheduled Orders Name Type Priority Associated Diagnoses Orde r Schedule Hepatitis C Antibody with Reflex to HCV, RNA, Quantitative, Real-Time PCR Lab Routine Chronic diastolic heart failure (CMS/HCC) Expected: 06/19/2024, Expires: 06/19/2025 Albumin, Random Urine W/Creatinine Lab Routine Type 2 diabetes mellitus with hyperglycemia, without long-term current use of insulin (CMS/HCC) Expected: 06/19/2024 (Approximate), Expires: 06/19/2025 documented as of this encounter Goals Goal Patient Goal Type Associated Problems Recent Progress Patient-Stated? Author Use the inhalers as prescribed by provider; Flovent HFA scheduled and albuterol as needed General No Marcel Garcia, PharmD Take your medication every day Lifestyle No Marcel Garcia PharmD documented as of this encounter Procedures Procedure Name Priority Date/Time Associated Diagnosis Comments POCT GLUCOSE Routine 06/19/2024 2:34 PM EST Type 2 diabetes mellitus with hyperglycemia, without long-term current use of insulin (CMS/HCC) documented in this encounter Results * POCT glucose manually resulted (06/19/2024 2:34 PM EST) Glucose Blood, POC 113 60 - 200 mg/dL QC Media Lot # Comment:[id number] Lot# Expiration Date Comment:08/22/2024 Blood Capillary blood specimen / Unknown 06/19/2024 2:34 PM EST us Radha Renee MD POINT OF CARE TEST ENTER/ED IT ORDERABLES Final Result documented in this encounter Visit Diagnoses Diagnosis Fibromyalgia- Primary Unspecified myalgia and myositis Type 2 diabetes mellitus with hyperglycemia, without long-term current use of insulin (CMS/HCC) Chronic diastolic heart failure (CMS/HCC) Chronic diastolic heart failure Chronic obstructive pulmonary disease, unspecified COPD type (CMS/HCC) documented in this encounter Additional Health Concerns Assessment Noted Time PHQ-9 Depression Total Score: 10 10/28/ 024 12:52 PM EDT documented as of this encounter Care Teams Ict Analyst Relationship Specialty Start Date End Date Edwige Headley MD [address] [place] [phone] PCP - General Family Medicine 08/21/22 documented as of this encounter
--- OUTSIDE RECORDS SUMMARY | 2024-07-07 09:49 | XMS_ITS | Encounter Summary ---
Author Organization [employer] Address [address] [place] [address] Care Team Providers Care Home Specialist Name Role Phone Edwige Headley MD Primary Care Provider [phone] Reason for Visit * Reason Onset Date Comments Hospital Follow-up 05/25/2024 Encounter Details Date Type Department Care Team ([facility] st Contact Info) Description 05/25/2024 Telephone [facility] MEDICINE [address] [place] [address] Edwige Headley MD [address] [place] [phone] Hospital Follow-up Social History Tobacco Use Types Packs/Day Years [...] encounter Miscellaneous Notes * Telephone Encounter - Mau Tian - 05/25/2024 2:59 PM EST Tc from pt requesting a HDF appt. Hospital: [facility] Date of admission: 05/16/2024 Discharge date: 2024 Diagnosed: Discuss with pt. *Send message to [facility] Clinical Care Coordinators documented in this encounter Plan of Treatment Upcoming Encounters Date Type Department Care Team (Late st Contact Info) Description 08/24/2024 2:30 PM EDT Clinical Support [facility] [address] [place] [address] Maria Guadalupe Rodríguez, AC [address] [place] [address] documented as of this encounter Goals Goal [...] documented as of this encounter Care Teams Home Specialist Relationship Specialty Start Date End Date Edwige Headley MD [address] [place] [address] PCP - General Family Medicine 08/21/22 documented as of this encounter
--- OUTSIDE RECORDS SUMMARY | 2024-07-07 09:49 | XMS_ITS | Encounter Summary ---
Author Organization [employer] Address [address] [address] [place] [address] Care Team Providers Care Assistant Principal Name Role Phone Edwige Headley MD Primary Care Provider [phone] Reason for Visit * Reason Comments Med Refill Encounter Details Date Type Department Care Team ([facility] st Contact Info) Description 07/06/2024 Refill [facility] MED[facility]INE [address] [place], [place] [phone] Edwige Headley MD [address] [place] [address] Alzheimer's disease, unspecified (CODE) (CMS/[facility]) Social History Tobacco Use Types Packs/Day Years [...] Clinical Support [facility] [address] [place] [address] Maria Guadalupe Rodríguez, RN [address] [place] [address] documented as of this encounter Goals Goal Patient Goal Type Associated Problems Recent Progress Patient-Stated? Author Use the inhalers as prescribed by provider; Flovent HFA scheduled and albuterol as needed General No Marcel Garcia, PharmD Take your medication every day Lifestyle No Marcel Garcia PharmD documented as of this encounter Visit Diagnoses Diagnosis Alzheimer's disease, unspecified (CODE) (CMS/[facility]) documented in this encounter Additional Health Concerns Assessment Noted Time PHQ-9 Depression Total Score: 10 024 12:52 PM EDT documented as of this encounter Care Teams Assistant Principal Relationship Specialty Start Date End Date Edwige Headley MD [address] [place] [id number] PCP - General Family Medicine 08/21/22 documented as of this encounter
[2024-07-08 08:11] LABS: ~Hepatitis C Antibody Nonreactive (Nonreactive)
[2024-07-10 15:49] LABS: TS Negative Control Passed; TS Panel A 0; TS Panel B 0; TS Positive Control Passed; TSpotTB Negative (Negative)
== END 2024-07-07 09:16 | disposition home or self-care (01) ==
LOC: HO.CHCLDS 09:15
PROVIDERS: PCP Family Medicine; Visit Provider Internal Medicine
DX: Z11.1 Encounter for screening for respiratory tuberculosis (principal); I50.32 Chronic diastolic (congestive) heart failure
CPT/HCPCS: 36415; 86481; 86803

== ENCOUNTER 2024-07-11 15:53 | Outpatient (AMB) | payer OTHER, MEDICAID, SELFPAY ==
--- NOTE | 2024-07-11 15:54 | A.OFFVIS_ITS ---
Vital Signs 07/11/24 15:56 Height 5 ft Weight 121 lb BMI 23.6 Pulse 84 Pulse Source Pulse Oximeter Pulse Oximetry (%) 97 Oxygen Delivery Method Room Air Intake Visit Reasons: Shortness of breath Digital Technician Required: Yes Digital Technician Name: Viviana (in dept med interp) Clinical Material Handler: Clinical Material Handler offered & declined Accompanied by: Family/Other Allergies pregabalin [From Lyrica] Allergy (Intermediate, Verified 07/11/24 15:59) Rash Medication List - Last Reconciled 07/11/24 by Linette Mike LPN albuterol sulfate 90 mcg/actuation 2 puffs inhalation Q4H PRN aspirin 81 mg PO DAILY azithromycin 500 mg PO DAILY 5 days calcium carbonate 600 mg PO BID celecoxib 100 mg PO BID cholecalciferol (vitamin D3) (Vitamin D3) 50 mcg PO DAILY cyclobenzaprine 10 mg PO BEDTIME diclofenac sodium 1% 2 grams topical TID estradiol 0.01%(0.1mg/gram) 1 appl vaginal MOWEFR famotidine 40 mg PO BEDTIME [id number]-eyoccrkdv-zzgvhijg 200-62.5-25 mcg (Trelegy Ellipta) 1 inh inhalation DAILY gabapentin 300 mg PO TID levalbuterol HCl 1.25 mg (3 mL) inhalation Q4-6H PRN losartan 25 mg PO DAILY memantine 5 mg PO BID metformin 500 mg PO TID montelukast 10 mg PO BEDTIME multivitamin 1 tab PO DAILY prednisone 40 mg (2 x 20 mg) PO DAILY rosuvastatin 20 mg PO BEDTIME sucralfate (Carafate) 10 mL PO Q8H PRN tramadol 50 mg PO BID PRN HPI HPI Shortness of breath: Details: Ed is a pleasant 79 year old, never smoker, with underlying asthma COPD overlap syndrome, GERD, osteoporosis and diastolic dysfunction. She has been moderately controlled on Trelegy however reports more frequent episodes of dyspnea over the last few weeks. She reports variable triggers, noting significant dyspnea with recent exposure to smoke warranting a hospital admission. She was admitted to [facility] from 05/16-05/19 for acute respiratory failure with hypoxia secondary to exacerbation. She was treated with IV steroids, nebs, and azithromycin with significant improvements. Today she continues to report occurences of dyspnea with associated chest tightness. She denies use of albuterol when episodes occur. There may also be an ancxiety component to symptoms which she is working towards scheduling an appt with a therapist. PFT 2022: Mild obstructive defect with significant response to bronchodilators- FEV1/FVC 62% GDQ9717% predicted and FVC 139% predicted, TLC 82%, DLCO 76% Chest CT 06/09: unremarkable chest tightness, dysonea on exertion. PFSH Medical History Atherosclerotic cardiovascular disease PVD (peripheral vascular disease) Breast nodule Urinary incontinence Osteoporosis Dementia in Alzheimer's disease Chronic diastolic (congestive) heart failure Hypertension Vitamin D deficiency Carpal tunnel syndrome Cervical disc disorder CKD (chronic kidney disease), stage II TONY (generalized anxiety disorder) Vertigo CAD (coronary artery disease) GERD (gastroesophageal reflux disease) Migraine Diabetes mellitus Asthma Surgical History H/O hand surgery Hx of cardiac catheterization History of hernia repair History of left inguinal hernia repair History of right inguinal hernia repair History of cholecystectomy Hx of colonoscopy History of esophagogastroduodenoscopy (EGD) Family History Mother Heart problem Arthritis Social History Household Members: Spouse, Family and Children Housing: House Alcohol intake: never Patient Tobacco Use Status: Never used Tobacco Second Hand Smoke Exposure: No service: No Review of Systems Const Denies chills, Denies excessive sweating, Denies fever(s), Denies headache(s) and Denies night sweats Eyes Denies dry eyes, Denies irritation and Denies itchy eyes ENT Reports Normal hearing present, Denies headache(s), Denies nasal congestion, Denies nasal discharge, Denies post nasal drip and Denies sore throat Card Denies chest pain, Denies chest pain at rest, Denies chest pain with activity, Denies claudication, Denies leg edema, Reports dyspnea on exertion, Denies orthopnea and Denies paroxysmal nocturnal dyspnea Resp Denies chest congestion, Denies cough, Denies excessive phlegm production, Denies pain on inspiration, Denies pain with cough, Reports dyspnea on exertion, Denies stridor and Denies wheezing Musc Denies myalgias Neuro Reports Normal hearing present and Denies headache(s) Endo Denies excessive sweating Dav/Lymph Denies lymphadenopathy Aller/Immun Denies itchy eyes, Denies seasonal rhinorrhea and Denies wheezing Physical Exam Vital Signs: Last Vital Signs Pulse 84 07/11/24 15:56 Pulse Ox 97 07/11/24 15:56 Oxygen Delivery Method Room Air 07/11/24 15:56 BMI result Body Mass Index 23.6 Neuro Cranial nerves: Yes Normal hearing present Assessment & Plan Assessment & Plan (1) Asthma-COPD overlap syndrome: Code(s): J44.89 - Other specified chronic obstructive pulmonary disease Category: Medical (2) Dyspnea: Code(s): R06.00 - Dyspnea, unspecified Category: Medical Plan Encouraged increase use of albuterol when experiencing dyspnea and continue Trelegy. Discussed with patient and daughter when to seek emergent care. Daughter is in the process of finding a therapist and discussing with PCP potential medications for anxiety. All questions were answered and patient is in agreement of plan. Will follow-up in 3 months or sooner if needed. Medications: New albuterol sulfate 90 mcg/actuation 2 puffs inhalation Q4H PRN 1 ea 2RF shortness of breath or wheezing Coding Level of Care Code Est Pt Level 4 ([address]306) Diagnoses Asthma-COPD overlap syndrome J44.89 Dyspnea R06.00
[2024-07-11 15:56] VITALS: PULSE 84; O2SAT 97; BMI 23.6
--- OUTSIDE RECORDS SUMMARY | 2024-07-11 19:33 | XMS_ITS | Encounter Summary ---
Author Organization [employer] Address [address] [facility] 7t [place] [address] Care Team Providers Care Research Associate Molecular Biology Name Role Phone Edwige Headley MD Primary Care Provider [phone] Encounter Details Date Type Department Care Team ([facility] Contact Info) Description 11/03/2022 Abstract [employer] [address] [place] [address] Edwige Headley MD 505 [place] [address] Social History Tobacco Use Types Packs/Day Years [...] Upcoming Encounters Date Type Department Care Team ([facility] Contact Info) Description 08/24/2024 2:30 PM EDT Clinical Support [facility] CH[facility] MED & PEDS 505 [place] [address] Maria Guadalupe Rodríguez RN 505 [place] [address] documented as of this encounter Goals Goal [...] documented as of this encounter Care Teams Research Associate Molecular Biology Relationship Specialty Start Date End Date Edwige Headley MD [address] [place] [address] PCP - General Family Medicine 08/21/22 documented as of this encounter
--- OUTSIDE RECORDS SUMMARY | 2024-07-11 19:33 | XMS_ITS | Encounter Summary ---
Author Organization [employer] [facility] Address [address] 7[address] [place] [address] Care Team Providers Care Mechanical Maintenance Technician Name Role Phone Edwige Headley MD Primary Care Provider [phone] Reason for Visit * Reason Comments Med Refill Encounter Details Date Type Department Care Team ([facility] Contact Info) Description 12/04/2022 Refill [facility] CHC MED & PEDS [address] [place] [address] Edwige Headley MD [address] [place] [address] Social History Tobacco Use Types Packs/Day Years [...] Upcoming Encounters Date Type Department Care Team ([facility] Contact Info) Description 08/24/2024 2:30 PM EDT Clinical Support [facility] CHC MED & PEDS [address] [place] [address] Maria Guadalupe Rodríguez, AC [address] [place] [address] documented as of this encounter Goals Goal [...] documented as of this encounter Care Teams Mechanical Maintenance Technician Relationship Specialty Start Date End Date Edwige Headley MD 230 [place] [address] PCP - General Family Medicine 08/21/22 documented as of this encounter
--- OUTSIDE RECORDS SUMMARY | 2024-07-11 19:33 | XMS_ITS | Encounter Summary ---
Author Organization [employer] Address [address] 7[address] h [place] [address] Care Team Providers Care Exotic Dancer Name Role Phone Edwige Headley MD Primary Care Provider [phone] Reason for Visit * Reason Onset Date Comments Hospital Follow-up 05/25/2024 Encounter Details Date Type Department Care Team ([facility] st Contact Info) Description 05/25/2024 Telephone [facility] MEDICINE [address] [place] [address] Edwige Headley MD [address] [place] [address] Hospital Follow-up Social History Tobacco Use Types [...] from pt requesting a HDF appt. Hospital: [facility] Date of admission: 05/16/2024 Discharge date: 2024 Diagnosed: Discuss with pt. *Send message to [facility] Care Coordinators documented in this encounter Plan of Treatment Upcoming Encounters Date Type Department Care Team (Late st Contact Info) Description 08/24/2024 2:30 PM EDT Clinical Support [facility] CHC MED & PEDS [address] [place] [address] Maria Guadalupe Rodríguez, AC 505 [place] [address] documented as of this encounter Goals Goal [...] documented as of this encounter Care Teams Exotic Dancer Relationship Specialty Start Date End Date Edwige Headley MD 230 [place] [address] PCP - General Family Medicine 08/21/22 documented as of this encounter
--- OUTSIDE RECORDS SUMMARY | 2024-07-11 19:33 | XMS_ITS | Encounter Summary ---
Author Organization [employer] Address [address] 7[address] [place] [address] Care Team Providers Care Office Machines Wirer Name Role Phone Edwige Headley MD Primary Care Provider [phone] Reason for Visit * Reason Comments controlled substance treatment Encounter Details Date Type Department Care Team ([facility] Contact Info) Description 06/20/2024 1:00 PM EST Clinical Support [facility] CHC MED & PEDS 505 [place] [address] Maria Guadalupe Rodríguez, RN 505 [place] [address] Fibromyalgia Social History Tobacco Use Types Packs/Day [...] t he electric, gas, oil or water [employer] threatened to shut off services in your [...] RN - 06/20/2024 1:00 PM EST S: DISTRIBUTION ANALYST initial [place]. VINCENT [employer] interpreting. Prescribed Tramadol 50mg PO q12h PRN. States has been taking as prescribed. Denies ETOH, nicotine/illicit drugs use. Currently rates pain a 9/10 and states medication is 40% effective at alleviating pain. Current pain sites are shoulders, R elbow, knees,L thigh. Last PCP f/u 02/25/24. No questions/ concerns at this time. DISTRIBUTION ANALYST Agreement initiated today. O: REHABILITATION PHYSICIAN verified today. Rx last filled 04/18/24. Pill count not performed as patient does not have any pills left, 0 expected. BPI form completed today. Pain severity score of (9), activity interference score of (4). Utox performed, negative for all tested substances, as expected. TONY 7 screening done, total score 4, mild anxiety. Opioid Risk Tool performed, low risk. A: DISTRIBUTION ANALYST Agreement Initiation: Opioid dependence related to chronic pain. P: Patient to continue taking medication only as prescribed; Next DISTRIBUTION ANALYST RV appointment scheduled for 08/24/24 @ 2:30pm. F/U sooner PRN. Patient verbalized understanding and agreed to plan. documented in this encounter Plan of Treatment Upcoming Encounters Date Type Department Care Team ([facility] st Contact Info) Description 08/24/2024 2:30 PM EDT Clinical Support [facility] MED & PEDS 505 [facility] [place] [address] Maria Guadalupe Rodríguez RN [address] [place] [address] documented as of this encounter Goals Goal [...] MTD, BUPG, TCA, MDMA, PCP, PPX. Lot# [id number] Exp: 04-22-25 us Edwige Headley MD POINT OF CARE TEST ENTER/EDIT ORDERABLES Final Result documented in this encounter Visit Diagnoses Diagnosis Fibromyalgia Unspecified myalgia and myositis documented in this encounter Additional Health Concerns Assessment Noted Time PHQ-9 Depression Total Score: 10 10/28/ 024 12:52 PM EDT documented as of this encounter Care Teams Office Machines Wirer Relationship Specialty Start Date End Date Edwige Headley MD [address] [place] [address] PCP - General Family Medicine 08/21/22 documented as of this encounter
--- OUTSIDE RECORDS SUMMARY | 2024-07-11 19:33 | XMS_ITS | Data Portability ---
Author Organization [facility] [employer] Address [address] [place] [id number] Care Team Providers Care Boatswains Mate Name Role Phone HIM [facility] OTHER [facility] OTHER Assessment Encounter Date Assessment Date Assessment LastModified by Organization Details LastModified Time 10/13/2023 10/13/2023 I have reviewed and agree with the assessment and plan as documented by the test engineering manager. I provided real-time medical direction for [...] one 1 % topical cream 2023 024 [facility], [address] [place] [address], [id number], 14:48:38 Patient TargetsNo targets recorded. Patient InstructionsNo [...] Not Available Not Available No t Available Bioph[employer]aeTouch Ultra Test strips TEST BLOOD SUGAR EVERY [...] Updated DateTime 4 99 % 99 % 76517.6 16 g 16 /min 98.1 [degF] 86 /min 138 mm[Hg] 90 mm[Hg] Not Available [facility] - production 4 18:14:31 Social History None recorded. Functional Status None recorded. Mental Status None recorded. Family History Nothing Reported. Medical History No medical history recorded. Gynecological HistoryNo gynecological history recorded. Obstetrics History GPAL:G 0 P 0 0 0 0 Past Encounters Encounter ID Performer Location Encounter Start Date Encounter Closed Date Diagnosis/Indication Diagnosis SNOMED-CT Code Diagnosis ICD10 Code Diagnosis Note [id number] Rita Haile MD Main - [facility] [address] [place] [address] 10/13/2023 18:14:24 10/14/2023 10:34:19 Contact dermatitis 48392139 L25.9 Health Concerns Section Related Observation LastModified by Organization Detai ls LastModified Time None Recorded Concern Status LastModified by Organization Details LastModified Time None Recorded Advance Directives Directive None Recorded Payers Encounter Date Sequence Insurance Name Policy Number Policy Sifuentes Covered Member ID Sifuentes Member ID Guarantor Name 10/13/2023 1 [facility] - DOS ON OR AFTER 2022 - DUAL ELIGIBLE - HALF-WAY OPTIONS AND ONE CARE (MEDICARE REPLACEMENT/ADV ANTAGE - HMO) Ed Hoffmann [id number] Ed Hoffmann Notes Date Note Type Note [...] .................... .................... .................... .................... .................... .................... . Under Cutter Note From Michael Nielson: Pt co rash/redness [...] . Disposition: Fulfilled Rita Haile MD [address] [facility],[address], [place], [address], [employer] - J. Hilburn 10/13/2023 19:19:35 OBGyn Episode No OBEpisode recorded.
--- OUTSIDE RECORDS SUMMARY | 2024-07-11 19:33 | XMS_ITS | Encounter Summary ---
Author Organization [employer] Address [address] 7t [place] [address] Care Team Providers Care Cork Compounder Name Role Phone Edwige Headley MD Primary Care Provider [phone] Reason for Visit * Reason Onset Date Comments Lab Orders 07/06/2024 Encounter Details Date Type Department Care Team ([facility] st Contact Info) Description 07/06/2024 Telephone [facility] MEDICINE [address] [place] [address] Edwige Headley MD 505 [place] [address] Lab Orders Social History Tobacco Use Types [...] TC x 3 placed to pt via [employer] medical interpreter ([employer] ID#[id number]) to inform a tuberculosis lab order was placed by the provider for her to have done at her convenience. Pt verbalized understanding and deniesquestions or concerns at this time. * Telephone Encounter - Mau Overton - 07/06/2024 4:20 PM EST Tc from pt returning call. Pt needs an Squad Leader. * Telephone Encounter - Zoë Dorantes RN - 07/06/2024 3:33 PM EST TC placed to pt via [employer] medical interpreter (ID#[id number]) to inform a tuberculosis lab order was [...] Description 08/24/2024 2:30 PM EDT Clinical Support [facility] MED & PEDS [address] [place], [place] [phone] Maria Guadalupe Rodríguez, RN [address] [place], [place] documented as of this encounter Goals Goal Patient Goal Type Associated Problems Recent Progress Patient-Stated? Author Use the inhalers as prescribed by provider; Flovent HFA scheduled and albuterol as needed General No Marcel Garcia, PharmD Take your medication every day Lifestyle No Marcel Garcia, PharmD documented as of this encounter Procedures Procedure Name Priority Date/Time Associated Diagnosis Comments T-SPOT(R).TB Routine 07/07/2024 9:23 AM EST Encounter for screening for respiratory tuberculosis documented in this encounter Results * T-SPOT??.TB (07/07/2024 9:23 AM EST) T Spot TB Negative Negative [facility] Comment:A negative test resu lt does not exclude the possibilityof exposure to or infection with Mycobacteriumtuberculosis (M. tuberculosis). Patients with recentexposure to TB infected individuals exhibiting anegative T-SPOT.TB result should be considered forretesting within 6 weeks or if other relevant clinicalsymptoms indicate. Results from T-SPOT.TB testing mustbe used in conjunction with each individual'sepidemiological history, current medical status,and results of other diagnostic evaluations.The T-SPOT.TB test is qualitative and results arereported as positive, borderline, or negative, giventhat the test controls perform as expected. In linewith the Centers for Disease Control and Prevention's2010 recommendation to report quantitative measurementsalongside the qualitative result, the laboratoryprovides spot counts for informational purposes only.The T-SPOT.TB test should not be interpreted as aquantitative test. TS PANEL A 0 [facility] TS PANEL B 0 [facility] Negative Control Passed [facility] Positive Control Passed [facility] Comment:For additional infor nika, please refer tohttp://education.questdiagnostics.com/faq/ZJB642(This link is being provided for informational/educational purposes only.)THIS TEST WAS PERFORMED AT:[employer]/[facility] [id number] [place] [address]UJHUIGX W. MASON,MD,PHD 07/07/2024 9:23 AM EST 07/07/2024 1:55 PM EST us Edwige Headley MD LAB BLOOD ORDERABLES Final Re sult [facility] [address] [place] [phone] documented in this encounter Visit Diagnoses Diagnosis Encounter for screening for respiratory tuberculosis documented in this encounter Additional Health Concerns Assessment Noted Time PHQ-9 Depression Total Score: 10 06/2 024 12:52 PM EDT documented as of this encounter Care Teams Cork Compounder Relationship Specialty Start Date End Date Edwige Headley MD [address] [place] [address] PCP - General Family Medicine 08/21/22 documented as of this encounter
--- OUTSIDE RECORDS SUMMARY | 2024-07-11 19:33 | XMS_ITS | Encounter Summary ---
Author Organization [employer] Address [address] 7[address] [place] [address] Care Team Providers Care Autistic Teacher Name Role Phone Edwige Headley MD Primary Care Provider [phone] Reason for Visit * Reason Onset Date Comments Med Refill 06/13/2024 Encounter Details Date Type Department Care Team ([facility] st Contact Info) Description 06/13/2024 Refill [facility] CHC MED & PEDS [address] [place] [address] Edwige Headley MD [address] [place] [address] Fibromyalgia Social History Tobacco Use Types Packs/Day [...] 50 MG tablet To be sent to: [facility] documented in this encounter Plan of Treatment Upcoming Encounters Date Type Department Care Team (Late st Contact Info) Description 08/24/2024 2:30 PM EDT Clinical Support [facility] CHC MED & PEDS [address] [place] [address] Maria Guadalupe Rodríguez, AC [address] [place] [address] documented as of this encounter Goals Goal [...] documented as of this encounter Care Teams Autistic Teacher Relationship Specialty Start Date End Date Edwige Headley MD [address] [place] [address] PCP - General Family Medicine 08/21/22 documented as of this encounter
--- OUTSIDE RECORDS SUMMARY | 2024-07-11 19:33 | XMS_ITS | Encounter Summary ---
Author Organization [employer] Address [address] 7[address] [place] [address] Care Team Providers Care Handbag Frames Inspector Name Role Phone Edwige Headley MD Primary Care Provider [phone] Reason for Visit * Reason Comments Med Refill Encounter Details Date Type Department Care Team ([facility] st Contact Info) Description 08/13/2023 Refill [facility] CHC MED & PEDS 505 [place], [place] [phone] Edwige Headley MD [address] [place] [address] Social History Tobacco Use Types Packs/Day Years [...] 08/24/2024 2:30 PM EDT Clinical Support [facility] MED & PEDS 505 [place] [address] Maria Guadalupe Rodríguez, RN [address] [place] [address] documented as of this encounter Goals Goal [...] documented as of this encounter Care Teams Handbag Frames Inspector Relationship Specialty Start Date End Date Edwige Headley MD [address] [place] [address] PCP - General Family Medicine 08/21/22 documented as of this encounter
--- OUTSIDE RECORDS SUMMARY | 2024-07-11 19:33 | XMS_ITS | Encounter Summary ---
Author Organization [employer] Address [address] 7[address] [place] [address] Care Team Providers Care Sap Fico Architect Name Role Phone Edwige Headley MD Primary Care Provider [phone] Reason for Visit * Reason Onset Date Comments Med Refill 06/20/2024 Encounter Details Date Type Department Care Team ([facility] st Contact Info) Description 06/20/2024 Refill [facility] MED & PEDS [address] [place] [address] Maria Guadalupe Rodríguez, RN [address] [place] [address] Fibromyalgia Social History Tobacco Use Types Packs/Day [...] Description 08/24/2024 2:30 PM EDT Clinical Support [facility] CHC MED & PEDS [address] [place] [address] Maria Guadalupe Rodríguez, RN [address] [place] [address] documented as of this encounter Goals Goal [...] documented as of this encounter Care Teams Sap Fico Architect Relationship Specialty Start Date End Date Edwige Headley MD [address] [place] [address] PCP - General Family Medicine 08/21/22 documented as of this encounter
--- OUTSIDE RECORDS SUMMARY | 2024-07-11 19:33 | XMS_ITS | Encounter Summary ---
Author Organization [employer] Address [address] 7[address] [place] [address] Care Team Providers Care Case Checker Name Role Phone Edwige Headley MD Primary Care Provider [phone] Reason for Visit * Reason Comments Med Refill Encounter Details Date Type Department Care Team ([facility] st Contact Info) Description 07/06/2024 Refill [facility] MEDICINE [address] [place], [place] [phone] Edwige Headley MD 505 [place] [address] Alzheimer's disease, unspecified (CODE) (CMS/[facility]) Social History Tobacco Use Types [...] 2:30 PM EDT Clinical Support [facility] CHC MED & PEDS [address] [place] [address] Maria Guadalupe Rodríguez, RN [address] [place] [address] documented as of this encounter Goals Goal Patient Goal Type Associated Problems Recent Progress Patient-Stated? Author Use the inhalers as prescribed by provider; Flovent HFA scheduled and albuterol as needed General No Marcel Garcia, PharmD Take your medication every day Lifestyle No Marcel Garcia PharmD documented as of this encounter Visit Diagnoses Diagnosis Alzheimer's disease, unspecified (CODE) (CMS/[facility]) documented in this encounter Additional Health Concerns Assessment Noted Time PHQ-9 Depression Total Score: 10 024 12:52 PM EDT documented as of this encounter Care Teams Case Checker Relationship Specialty Start Date End Date Edwige Headley MD [address] [place] [address] PCP - General Family Medicine 08/21/22 documented as of this encounter
--- OUTSIDE RECORDS SUMMARY | 2024-07-11 19:33 | XMS_ITS | Encounter Summary ---
Author Organization [employer] Address [address] 7[address] [place] [address] Care Team Providers Care Website/Blog Editor Name Role Phone Edwige Headley MD Primary Care Provider [phone] Reason for Visit * Reason Onset Date Comments PT-1 03/28/2024 Encounter Details Date Type Department Care Team ([facility] st Contact Info) Description 03/28/2024 Telephone [facility] MEDICINE [address] [place] [address] Edwige Headley MD [address] [place] [address] PT-1 Social History Tobacco Use Types Packs/Day [...] Y/N: Yes Provider name or facility name: [facility] Facility Address: [address] [place] [address] Escort needed: Y/N: Yes Do you have a wheelchair: Y/N: No If yes- Manual or electric: (Uses Walker) Visits: Once a month documented in this encounter Plan of Treatment Upcoming Encounters Date Type Department Care Team (Late st Contact Info) Description 08/24/2024 2:30 PM EDT Clinical Support [facility] MED & PEDS [address] [place] [address] Maria Guadalupe Rodríguez RN [address] [place] [address] documented as of this encounter Goals Goal [...] documented as of this encounter Care Teams Website/Blog Editor Relationship Specialty Start Date End Date Edwige Headley MD [address] [place] [address] PCP - General Family Medicine 08/21/22 documented as of this encounter
--- OUTSIDE RECORDS SUMMARY | 2024-07-11 19:33 | XMS_ITS | Clinical Summary ---
Author Organization [employer] Address [address] [place] [address] Care Team Providers Care Chassis Wirer Name Role Phone Edwige Headley MD Primary Care Provider [phone] Allergies Active Allergy Reactions Criticality Noted Date [...] each 023 Active Lancets (OneTouch Delica Plus [id number]) misc 1 Units in the morning. Please [...] 5 MG tabletIndicatio ns:Alzheimer's disease, unspecified (CODE) (CMS/[facility]) TAKE 1 TABLET BY MOUTH [...] swallow test came back normal. Referred to mail sorter Assessment & Plan (07/20/2023 9:51 PM EST): [...] be prescribed steroids. Recommended patient to call [employer] Sales Agent to schedule an appointment to get further [...] Center 10/18/2023 3:30 PM Edwige Headley MD [facility] Assessment & Plan (03/19/2023 3:58 PM EDT): [...] and daughter. PLAN: 1. Follow up with [facility]: Not recommended for follow-up 2. Patient goal is to be able to manage her symptoms without medication. 3. Behavioral Recommendations a. Referral to Ind. therapy b. Practice of Coping skills for Anxiety c. Contact this comic book writer for support as needed Encounters Date Type Department Care Team Description 07/06/2024 Refill [facility] [address] [place] [address] Edwige Headley MD Alzheimer's disease, unspecified (CODE) ([facility]) 07/06/2024 Telephone [facility] [address] [place] [address] Edwige Headley MD Lab Orders 07/05/2024 Refill [facility] [address] [place] [address] Edwige Headley MD 06/26/2024 Refill [facility] [address] [place] [address] Edwige Headley MD 06/20/2024 1:00 PM EST Clinical Support [facility] [address] [place] [address] Maria Guadalupe Rodríguez RN Fibromyalgia 06/20/2024 Travel 06/20/2024 Refill [facility] [address] [place] [address] Maria Guadalupe Rodríguez RN Fibromyalgia 06/19/2024 2:45 PM EST Office Visit [facility] [address] [place] [address] Radha Renee MD Fibromyalgia (Primary Dx); Type 2 diabetes mellitus with hyperglycemia, without long-term current use of insulin ([facility]); Chronic diastolic heart failure ([facility]); Chronic obstructive pulmonary disease, unspecified COPD type ([facility]) 06/19/2024 Travel 06/13/2024 Refill [facility] [address] [place] [address] Edwige Headley MD Fibromyalgia 05/30/2024 1:00 PM EST Office Visit [facility] [address] [place] [address] Radha Renee MD Chronic obstructive pulmonary disease, unspecified COPD type (CMS/HCC) (Primary Dx); Raynaud's phenomenon without gangrene; Other fatigue; Type 2 diabetes mellitus with hyperglycemia, without long-term current use of insulin (CMS/HCC); Primary hypertension 05/30/2024 Travel 05/25/2024 Patient Outreach [facility] PEDS [address] [place] [address] Edwige Headley MD Transition Of Care (Tcm) (HDF- scheduled and SDOH screening completed on 10/29/2023) 05/25/2024 Telephone [facility] [address] [place] [phone] Edwige Headley MD Hospital Follow-up 05/24/2024 Telephone [facility] [address] [place] [phone] Mary Santiago MD 05/16/2024 Orders Only [facility] External Provider, [facility] 05/16/2024 Telephone [facility] [address] [place] [phone] Brody Carter MD 05/10/2024 Refill [facility] [address] [place] [address] Edwige Headley MD 04/28/2024 Telephone [facility] [address] [place] [phone] Edwige Headley MD Appointment Request 04/27/2024 Refill [facility] [address] [place] [phone] Edwige Headley MD 04/17/2024 Refill [facility] [address] [place] [address] Edwige Headley MD Fibromyalgia 04/12/2024 Refill [facility] [address] [place] [address] Maria Guadalupe Rodríguez RN Fibromyalgia 04/12/2024 Telephone [facility] [address] [place] [address] Edwige Headley MD 04/10/2024 Telephone [facility] [address] [place] [address] Maria Guadalupe Rodríguez RN from Last 3 Months Immunizations Name Administration [...] Description 08/24/2024 2:30 PM EDT Clinical Support [facility] [address] [place] [address] Maria Guadalupe Rodríguez, RN [address] [place] [address] Health Maintenance Due Date Last Done Comments Eye Exam 1955 Diabetes: Urine Protein Screening 08/22/2023 08/21/2022 COVID-19 Vaccine ( season) 2024 07/20/2023 Depression Monitoring (PHQ-9) 04/29/2024 10/29/2023, 10/29/2023 Lipid Panel 08/29/2024 08/30/2023, 08/21/2022 Depression Screening 10/28/2024 10/29/2023, 10/29/19 24 SDOH Screening 10/28/2024 10/29/2023 Diabetes: Hemoglobin A1C 11/27/2024 025, 08/30/2023, 07/20/2023, Additional history exists Alcohol/Substance Use Screening 06/19/2025 06/19/2024 Diabetes: Foot Exam 06/19/2025 06/19/2024, 06/19/2024, 06/19/2024, Additional history exists Tobacco Screening 06/19/2025 06/19/2024 DTaP/Tdap/Td Vaccines (2 - Td or Tdap) 12/11/2032 12/11/2022 Pneumococcal Vaccine: 50+ Years Completed 01/02/2022 Zoster Vaccines Completed 02/23/2023, 12/11/2022 RSV Patients and Patients Aged 60 years or older Completed 02/03/2024 Influenza Vaccine Completed 02/25/2024, , 01/02/2022 Hepatitis C Screening Completed 07/07/2024 HIB Vaccines Aged Out No longer eligi [...] EST Encounter for screening for respiratory tuberculosis HEPATITIS C AB W/REFL TO HCV RNA, QN, PCR Routine 07/07/2024 9:23 AM EST Chronic diastolic heart failure (CMS/HCC) POCT SENAIT-14 URINE DRUG SCREEN Routine 06/20/2024 2:05 PM EST Fibromyalgia POCT GLUCOSE Routine 06/19/2024 2:34 PM EST Type 2 diabetes mellitus with hyperglycemia, without long-term current use of insulin (CMS/HCC) MAGNESIUM Routine 05/31/2024 12:44 PM EST Chronic [...] 1:10 PM EST HEPATIC FUNCTION PANEL Routine 05/16/2024 1:10 PM EST B TYPE NATRIURETIC PEPTIDE (BNP) Routine 05/16/2024 1:10 PM EST CBC WITH AUTO DIFFERENTIAL Routine 05/16/2024 1:10 PM EST SARS COV2/INFLUENZA A/B AND RSV RNA QL NAAT Routine 05/16/2024 1:09 PM EST BLOOD CULTURE (SECOND) Routine 05/16/2024 12:52 PM EST XR CHEST 1 VIEW Routine 05/16/2024 12:50 PM EST LIPID PANEL, STANDARD Routine 08/30/2023 10:36 AM EDT ALBUMIN, RANDOM URINE W/O CREATININE Routine 08/21/2022 10:43 AM EDT Type 2 diabetes mellitus with hyperglycemia, without long-term current use of insulin ([facility]) from Last 3 Months or Most Recently Relevant to Health Maintenance Results * T-SPOT??.TB (07/07/2024 9:23 AM EST) [facility] T Spot TB Negative Negative [facility] Comment:A negative test resu lt does [...] as aquantitative test. TS PANEL A 0 [facility] TS PANEL B 0 [facility] Negative Control Passed [facility] Positive Control Passed [facility] Comment:For additional infor mation, please refer [email or web address].[email or web address]/faq/XRH415(This link is being provided for informational/educational purposes only.)THIS TEST WAS PERFORMED AT:[employer] [id number] [place] [address]REJXCOVVIRGINIA DAN MD,PHD 07/07/2024 9:23 AM EST 07/07/2024 1:55 PM EST us Edwige Headley MD LAB BLOOD ORDERABLES Final Re sult [facility] [address] [place] [phone] * Hepatitis C Antibody with Reflex to HCV, RNA, Quantitative, Real-Time PCR (07/07/2024 9:23 AM EST) Hepatitis C Antibody Nonreactive Nonreactive [facility] Comment:Antibodies to HCV no t detected; does not exclude early acuteHCV infection. Blood Venous blood specimen / Unknown 07/07/2024 9:23 AM EST 07/07/2024 1:55 PM EST us Radha Renee MD LAB BLOOD ORDERABLES Final Result [facility] [address] [place] [address] [phone] * POCT SENAIT-14 Urine Drug Screen (06/20/2024 2:05 PM EST) Urine Urine specimen obtained by clean catch procedure / Unknown 06/20/2024 2:05 PM EST Narrative Maria Guadalupe Rodríguez RN - 06/20/2024 2:05 PM EST negative for THC, MOP, OXY, ANTON, MET, AMP, BZO, BAR, MTD, BUPG, TCA, MDMA, PCP, PPX. Lot# [id number] Exp: 04-22-25 Edwige Headley MD POINT OF CARE TEST ENTER/EDIT ORDERABLES Final Result * POCT glucose manually resulted (06/19/2024 2:34 PM EST) Only the most recent of2 resultswithin the time period is included. Glucose Blood, POC 113 60 - 200 mg/dL QC Media Lot # Comment:[id number] Lot# Expiration Date Comment:08/22/2024 Blood Capillary blood specimen / Unknown 06/19/2024 2:34 PM EST Radha Renee MD POINT OF CARE TEST ENTER/ED IT ORDERABLES Final Result * Vitamin D, 25-Hydroxy, Total, Immunoassay (05/31/2024 12:44 PM EST) Vitamin D 25-OH Total 33.6 >30 ng/mL [facility] Comment:Health Based Referen ce Values*< 20 ng/mL Yrxbiixxe19-04 ng/mL Insufficient> 30 ng/mL Sufficient*Yessy MENDOZA. N [...] BLOOD ORDERABLES Final Result Performing Organization Address City/[facility]/ZIP Co de Phone Number [facility] [address] [place] [address] [phone] * (ABNORMAL) Vitamin B12/Folate, Serum Panel (05/31/2024 12:44 PM EST) Vitamin B12 944(H) 200 - 900 pg/mL [facility] Comment:NORMAL 200-900 PG/ML INDETERMINATE 160-199 PG/ML DEFICIENT < 160 PG/ML Folate 11.9 > or = 4.0 ng/mL [facility] Comment:Reference Values:> o r = 4.0 [...] BLOOD ORDERABLES Final Result Performing Organization Address City/[facility]/ZIP Co de Phone Number [facility] [address] [place] [address] [phone] * TSH W/Reflex to FT4 (05/31/2024 12:44 PM EST) TSH reflex Free T4 1.02 0.32 - 4.0 uIU/mL [facility] Blood Venous blood specimen / Unknown 05/31/2024 12:44 PM EST 05/31/2024 2:20 PM EST us Radha Renee MD LAB BLOOD ORDERABLES Final Result Performing Organization Address [facility] Co de Phone Number [facility] [address] [place] [phone] * (ABNORMAL) Vitamin B1 (05/31/2024 12:44 PM EST) Vitamin B1 41(A) 8 - 30 nmol/L [facility] Comment:Vitamin supplementat ion within 24 hours prior toblood draw may affect the accuracy of the results.This test was developed and its analytical performancecharacteristics have been determined by [employer] [place], [place]. It hasnot been cleared or approved by the U.S. Food and DrugAdministration. This assay has been validated pursuantto the CLIA regulations and is used for clinicalpurposes.THIS TEST WAS PERFORMED AT:[employer]/[facility] [place] [address]OXKTUKVVIRGINIA DAN MD,PHD Blood Venous blood specimen / Unknown 05/31/2024 12:44 PM EST 05/31/2024 2:20 PM EST us Radha Renee MD LAB BLOOD ORDERABLES Final Result Performing Organization Address [facility] Co de Phone Number [facility] [address] [place] [phone] * Magnesium (05/31/2024 12:44 PM EST) Only the most recent of2 resultswithin the time period is included. Magnesium 1.8 1.6 - 2.6 mg/dL [facility] Blood Venous blood specimen / Unknown 05/31/2024 12:44 PM EST 05/31/2024 2:20 PM EST us Radha Renee MD LAB BLOOD ORDERABLES Final Result [facility] [address] [place] [address] [phone] * (ABNORMAL) POCT HGB A1C (05/30/2024 1:42 PM EST) Hemoglobin A1C 6.9(A) 4.0 - 6.0 % QC Media Lot # [id number] Lot# Expiration Date [id number] Blood 05/30/2024 1:42 PM EST Radha Renee MD POINT OF CARE TEST ENTER/ED IT ORDERABLES Final Result * (ABNORMAL) Urinalysis, Complete, with Reflex to Culture (05/16/2024 2:49 PM EST) Color Urine Yellow [facility] Appearance Urine Clear [facility] PH 5.0 5.0 - 9.0 [facility] Glucose Urine UA Negative Negative mg/dL [facility] Urine Blood Trace(A) Negative [facility] Specific [place] - Urine 1.010 1.005 - 1.025 [facility] Urine Protein Negative Neg-Trace mg/dL [facility] Urine Ketones Negative Negative mg/dL [facility] Nitrite Urine Negative Negative [facility] Leukocyte Esterase Urine Negative Negative [facility] RBC Urine 0-2 0 - 2 /HPF [facility] Urine WBC 0-5 0 - 5 /HPF [facility] Urine Squamous Epithelial Cell 0-2 0 - 2 /HPF [facility] Urine Bacteria None Seen None Seen [facility] Hyaline Casts, Urine 0-2 0 - 2 /LPF [facility] 05/16/2024 2:49 PM EST 05/16/2024 2:56 PM EST Narrative [facility] - 05/16/2024 3:05 PM EST [id number], Clean Catch us Generic External Data Provider LAB URINE ORDERAB LES Final Result Performing Organization Address [facility] Co de Phone Number [facility] [address] [place] [phone] * (ABNORMAL) VENOUS BLOOD GAS (05/16/2024 1:17 PM EST) VBG pH 7.37 7.32 - 7.43 [facility] Comment:METER #: [id number] additional_comment: Cb clayton VBG PCO2 53 mmHg [facility] Comment:METER #: [id number] additional_comment: Cb clayton VBG PO2 47 mmHg [facility] Comment:METER #: [id number] additional_comment: Cb clayton VBG Base Excess 4.7 mmol/L [facility] Comment:METER #: [id number] additional_comment: Tay arnold VBG HCO3 31(H) 22 - 26 mmol/L [facility] Comment:METER #: [id number] additional_comment: Tay arnold O2 Sat, Darren 72.0 % [facility] Comment:METER #: [id number] additional_comment: Tay arnold 05/16/2024 1:17 PM EST 05/16/2024 1:23 PM EST Generic External Data Provider LAB BLOOD ORDERAB LES Final Result Performing Organization Address [facility] Co de Phone Number [facility] [address] [place] [phone] * High Sensitivity Troponin I (05/16/2024 1:10 PM EST) TROPONIN I HIGH SENSITIVITY <2.7 <3.5 - 17.0 ng/L [facility] Comment:The Goldstein high sens itivity Troponin-I results should beused in conjunction with other diagnostic information suchas ECG, clinical observations and information, and patientsymptoms to aid in the diagnosis of AR. 05/16/2024 1:10 PM EST 05/16/2024 1:15 PM EST us Generic External Data Provider LAB BLOOD ORDERAB LES Final Result [facility] [address] [place] [address] [phone] * Procalcitonin (05/16/2024 1:10 PM EST) Procalcitonin 0.05 ng/mL [facility] Comment: Procalcitonin (PCT) Reference Range:PCT [...] in interpreting PCT results fromdifferent laboratories and methodologies.References:[place] [employer]/Society of CriticalCare Medicine Consensus Conference Committee. ??Definitionsfor sepsis and organ failure and guidelines for the use ofinnovative therapies in sepsis. ??Crit Care Sta8653;20(6):864-874.Adrián B, Rodney KL, Jennyfer H, et al. ??Calcitoninprecursors are reliable markers of sepsis in a medicalintensive care unit. ??Crit Care Med 2000;363:600-607.Terese S, Solange K, Jaylyn C, et al. ??Diagnosticvalue of procalcitonin, interleukin-6 and interleukin-8 incritically ill patients admitted with suspected sepsis. ??AMJ Respir Crit Care Med 2001;164:396-402.US Food and Drug Administration. ??510(k) substantialequivalence determination decision summary for [facility] PCTLIA.http://www.accessdata.fda.fov/cdr_docs/reviews/E306661.pdf.Published May 2004. ??Accessed October 2016. 05/16/2024 1:10 PM EST 05/16/2024 1:15 PM EST us Generic External Data Provider LAB BLOOD ORDERAB LES Final Result [facility] [address] [place] [address] [phone] * (ABNORMAL) CBC auto differential (05/16/2024 1:10 PM EST) White Blood Count 8.0 4.8 - 10.8 X10*3/uL [facility] Red Blood Count 4.33 4.20 - 5.50 X10*6/uL [facility] Hemoglobin 13.3 12.0 - 16.0 g/dl [facility] Hematocrit 39.3 37.0 - 47.0 % [facility] Mean Corpuscular Volume 90.8 80.0 - 98.0 fL [facility] Mean Corpuscular Hemoglobin 30.7 27.0 - 33.0 pg [facility] Mean Corpuscular HGB Conc 33.8 31.0 - 35.0 g/dl [facility] Red Cell Distribution Width 14.5 11.0 - 16.0 % [facility] Platelet Count 184 160 - 400 X10*3/uL [facility] Mean Platelet Volume 10.4 9.4 - 12.3 fL [facility] Neutrophils Percent Auto 50.6 45 - 73 % [facility] Imm Gran Pct Auto 0.5(H) 0.0 - 0.4 % [facility] Lymphocytes Percent Auto 38.7 20 - 40 % [facility] Monocytes Percent Auto 7.9 2 - 11 % [facility] Eosinophils Percent Auto 2.0 0 - 4 % [facility] Basophils Percent Auto 0.3 0 - 2 % [facility] NRBC Pct Auto 0.0 0.0 - 0.2 /100WBC [facility] Neutrophils Absolute Auto 4.0 2.0 - 8.3 x10*3/uL [facility] Imm Gran Abs Auto 0.04(H) 0.00 - 0.03 X10*3/uL [facility] Lymphocytes Absolute Auto 3.1 1.2 - 4.9 X10*3/uL [facility] Monocytes Absolute Auto 0.6 0.1 - 1.2 X10*3/uL [facility] Eosinophils Absolute Auto 0.2 0.0 - 0.4 X10*3/uL [facility] Basophils Absolute Auto 0.0 0.0 - 0.2 X10*3/uL [facility] NRBC Abs Auto 0.000 0.0 - 0.012 X10*3/uL [facility] 05/16/2024 1:10 PM EST 05/16/2024 1:15 PM EST Generic External Data Provider LAB BLOOD ORDERAB LES Final Result Performing Organization Address [facility]/ZIP Co de Phone Number [facility] [address] [place] [phone] * C-reactive Protein (05/16/2024 1:10 PM EST) C Reactive Protein <0.10 < or = 0.50 mg/dL [facility] 05/16/2024 1:10 PM EST 05/16/2024 1:15 PM EST Generic External Data Provider LAB BLOOD ORDERAB LES Final Result Performing Organization Address [facility] Co de Phone Number [facility] [address] [place] [phone] * B Type Natriuretic Peptide (BNP) (05/16/2024 1:10 PM EST) B Type Natriuretic Peptide <10 <100 pg/mL [facility] Comment:For those patients w ho are being treated with Natrecor(nesiritide, recombinant BNP), BNP testing should beperformed at least two hours post treatment in order toensure that only endogenous levels of BNP are detected. 05/16/2024 1:10 PM EST 05/16/2024 1:15 PM EST Generic External Data Provider LAB BLOOD ORDERAB LES Final Result Performing Organization Address [facility]/ZIP Co de Phone Number [facility] [address] [place] [address] [phone] * Lipase (05/16/2024 1:10 PM EST) Lipase 21 8 - 78 U/L [facility] 05/16/2024 1:10 PM EST 05/16/2024 1:15 PM EST Generic External Data Provider LAB BLOOD ORDERAB LES Final Result Performing Organization Address [facility] Co de Phone Number [facility] [address] [place] [address] [phone] * (ABNORMAL) Lactic Acid (05/16/2024 1:10 PM EST) Lactic Acid 3.0(HH) 0.5 - 2.0 mmol/L [facility] Comment:Critical value for L ACTIC: Results called to and read backby: CHARLA Person calling: CHERRIE Date: 05/16/24 Time:1347 05/16/2024 1:10 PM EST 05/16/2024 1:15 PM EST Generic External Data Provider LAB BLOOD ORDERAB LES Final Result Performing Organization Address [facility] Co de Phone Number [facility] [address] [place] [phone] * Hepatic Function Panel (05/16/2024 1:10 PM EST) Bilirubin, Total 0.4 0.0 - 1.0 mg/dL [facility] Bilirubin, Direct 0.2 0.0 - 0.5 mg/dL [facility] Aspartate Amino Transferase 28 5 - 31 U/L [facility] Alanine Aminotransferase 31 0 - 31 U/L [facility] Total Protein 7.4 6.5 - 8.0 g/dL [facility] Albumin Level 4.0 3.5 - 5.0 g/dL [facility] Alkaline Phosphatase 66 39 - 117 U/L [facility] 05/16/2024 1:10 PM EST 05/16/2024 1:15 PM EST us Generic External Data Provider LAB BLOOD ORDERAB LES Final Result [facility] [address] [place] [phone] * (ABNORMAL) Basic Metabolic Panel (05/16/2024 1:10 PM EST) Sodium 142 135 - 145 mmol/L [facility] Potassium 3.9 3.3 - 5.1 mmol/L [facility] Chloride 108 96 - 108 mmol/L [facility] Carbon Dioxide 26 22 - 29 mmol/L [facility] Anion Gap 12 12 - 20 [facility] Urea Nitrogen (BUN) 12 9 - 16 mg/dL [facility] Creatinine, Serum 0.83 0.5 - 1.4 mg/dL [facility] Creatinine Clr Calc Pharmacy 49.6 [facility] Comment:Provided height and weight: 165.1 cm,56.3 kg.eGFR (calculated from the MDRD study equation) and eCrCl(calculated from the Cockcroft-Gault equation) are based ondifferent parameters and may not yield comparable results.If eCrCl result is absurd, please check patient'sheight/weight. Estimated Glomerular Filt Rate >60 [facility] [facility] Comment:Chronic Kidney Disea se: Estimated GFR < 60 mL/min/1.94n4[place] Kidney Disease: Estimated GFR < 15 mL/min/1.73m2 Glucose 149(H) 60 - 115 mg/dL [facility] Calcium 9.1 8.4 - 10.2 mg/dL [facility] 05/16/2024 1:10 PM EST 05/16/2024 1:15 PM EST Generic External Data Provider LAB BLOOD ORDERAB LES Final Result Performing Organization Address [facility] Co de Phone Number [facility] [address] [place] [phone] * SARS-CoV-2 RNA, Influenza A/B, and RSV RNA, Ql NAAT (05/16/2024 1:09 PM EST) Influenza A PCR NEGATIVE Negative [facility] Influenza B PCR NEGATIVE Negative [facility] Resp Syncy Virus RNA Qual PCR NEGATIVE Negative [facility] SARS COV2 PCR NEGATIVE Negative [facility] Comment:All test results mus t [...] use by authorized laboratories.Testing performed on the [employer] GeneXpert utilizingreal-time RT-PCR.All SARS CoV2 and positive influenza A/B results arereported to [facility]. 05/16/2024 1:09 PM EST 05/16/2024 1:15 PM EST Generic External Data Provider LAB MICROBIOLOGY - GENERAL ORDERABLES Final Result Performing Organization Address [facility]/ZIP Co de Phone Number [facility] [address] [place] [phone] * Blood Culture (Second) (05/16/2024 12:52 PM EST) Blood Venous blood specimen / Unknown 05/16/2024 12:52 PM EST 05/16/2024 1:33 PM EST Comment:Blood Narrative [facility] - 05/16/2024 1:33 PM EST Multiple attempts for 2nd set of BCs. Unable to obtain at this time. aware. Blood Culture (Second) Test not performed CANCELED BY PROVIDER Specimen Source: Blood us Generic External Data Provider LAB MICROBIOLOGY - GENERAL ORDERABLES Final Result [facility] [address] [place] [phone] [phone] * XR Chest 1 View (05/16/2024 12:50 PM EST) Anatomical Region Laterality Modality Chest Radiographic Patricia ging 05/16/2024 12:5 0 PM EST Narrative 05/16/2024 1:24 PM EST ? [facility] ?[address] ?[place] [address] ?XRay Report ? Signed ? Patient: Puri Hoffmann,Blasina ?MR#: M ?? [id number] ? : 1945 ?Acct:[id number] ? Age/Sex: 78 / F ?ADM Date: 05/16/24 ? Loc: HO.ED ? Attending Dr: ? Ordering Physician: Nandini Dumont DO ?? Date of Service: 05/16/24 ?? Procedure(s): XR chest 1V ?? Accession Number(s): [id number] ? cc: Nandini Dumont DO; Edwige Headley [...] 01:21 PM EST RP ? Dictated By: ?Milagros,Luke S MD ? Signed By: ?<Electronically signed by Luke S Milagros, MD in OV> ?05/16/24 1321 ? DD/ 1250 ? TD/TT: 05/16/24 1255 ? Frame Wirer: MSM ? Procedure Note Donotuseinterpreter, Image - 05/16/[address] [address] XRay Report Signed Patient: Arthur Holguin#: M [id number] : 6Acct:[id number] Age/Sex: 78 / FADM Date: 05/16/24 Loc: .ED Attending Dr: Ordering Physician: Nandini Dumont DO Date of Service: 05/16/24 Procedure(s): XR chest 1V Accession Number(s): [id number] cc: Nandini Dumont DO; Edwige Headley MD EXAMINATION: XR CHEST CLINICAL INFORMATION: cough, fever COMPARISON: Chest 03/16/2024 TECHNIQUE: Frontal view of the chest was obtained. FINDINGS: No significant abnormality is noted involving the heart, lungs, mediastinum, bony thorax or soft tissues. XR/XR chest 1V IMPRESSION: Unremarkable chest examination. Electronically signed by: Luke Linares MD 05/16/2024 01:21 PM [facility] Dictated By: Luke Linares MD Signed By: <Electronically signed by Luke Linares MD in OV> 05/16/24 1321 DD/ 1250 TD/TT: 05/16/24 1255 Frame Wirer: JAMIE [facility] External Provider IMG XR PROCEDURES Final Result * Lipid Panel, Standard (08/30/2023 10:36 AM EDT) Triglycerides 39 <150 mg/dL [facility] Comment:Desirable Triglyceri de: less than 150 mg/dLBorderline High Triglyceride 150-199 mg/dLHigh Triglyceride: 200-499 mg/dLVery High Triglyceride: greater than or equal to 5OO mg/dL Cholesterol 116 <200 mg/dL [facility] Comment:Desirable Cholestero l: less than 200 mg/dLBorderline High Cholesterol: 200-239 mg/dLHigh Cholesterol: greater than 239 mg/dL LDL Cholesterol Calculated 35 <100 mg/dL [facility] Comment:Desirable LDL: less than 100 mg/dLNear Optimal/Above Optimal LDL: 110- 129 mg/dLBorderline High LDL: 130-159 mg/dLHigh LDL: 160-189 mg/dLVery High LDL: greater than or equal to 190 mg/dL HDL Cholesterol 74 >40 mg/dL [facility] Comment:Desirable HDL: great er than 40 mg/dL Note: This HDL assay may give artificially low results in patients with liver disease. 08/30/2023 10:3 6 AM EDT 08/30/2023 10:41 AM EDT us Generic External Data Provider LAB BLOOD ORDERAB LES Final Result Performing Organization Address [facility] Co de Phone Number [facility] [address] [place] [phone] * Albumin, Random Urine W/O Creatinine (08/21/2022 10:43 AM EDT) Albumin, Urine 1.8 See Note: mg/dL [facility] Comment: Reference Range: Reference Range Not established [facility] [employer] [place] [employer] Comment: The ADA defines abnormalities in albumin [...] MD LAB URINE ORDERABLES Final Re sult Performing Organization Address City/[facility]/ZIP Co de Phone Number [facility] [address] [place] [address], [place] [phone] [facility] [address] [place] [phone] from Last 3 Months or Most Recently Relevant to Health Maintenance Insurance [facility] Care Teams Chassis Wirer Relationship Specialty Start Date End Date Edwige Headley MD [address] [place] [address] PCP - General Family Medicine 08/21/22
--- OUTSIDE RECORDS SUMMARY | 2024-07-11 19:33 | XMS_ITS | Encounter Summary ---
Author Organization [employer] Address [address] [place] [address] Care Team Providers Care Airborne Electronics Analyst Name Role Phone Edwige Headley MD Primary Care Provider [phone] Reason for Visit * Reason Comments Med Refill Encounter Details Date Type Department Care Team ([facility] st Contact Info) Description 06/26/2024 Refill [facility] MED & PEDS [address] [place], [place] [phone] Edwige Headley MD [address] [place] [address] Social History Tobacco Use Types Packs/Day Years [...] 08/24/2024 2:30 PM EDT Clinical Support [facility] MED & PEDS [address] [place] [address] Maria Guadalupe Rodríguez, RN [address] [place] [address] documented as of this encounter Goals Goal [...] documented as of this encounter Care Teams Airborne Electronics Analyst Relationship Specialty Start Date End Date Edwige Headley MD [address] [place] [address] PCP - General Family Medicine 08/21/22 documented as of this encounter
--- OUTSIDE RECORDS SUMMARY | 2024-07-11 19:33 | XMS_ITS | Encounter Summary ---
Author Organization [employer] Address [address] [facility] [address]t [place] [address] Care Team Providers Care Online Services Manager Name Role Phone Edwige Headley MD Primary Care Provider Encounter Details Date Type Department Care Team ([facility] st Contact Info) Description 10/22/2022 Telephone C [facility] [address] [place], [place] [phone] Edwige Headley MD [address] [place] [address] Social History Tobacco Use Types Packs/Day Years [...] a call in regards to message above. (Cymraes speaker) * Telephone Encounter - Inez Martinez - 10/22/2022 3:31 PM EDT TC from pt requesting help to schedule her gastro appt . Please call to clarify . documented in this encounter Plan of Treatment Upcoming Encounters Date Type Department Care Team (Late st Contact Info) Description 08/24/2024 2:30 PM EDT Clinical Support [facility] MED & PEDS [address] [place] [address] Maria Guadalupe Rodríguez, RN [address] [place] [address] documented as of this encounter Goals Goal [...] documented as of this encounter Care Teams Online Services Manager Relationship Specialty Start Date End Date Edwige Headley MD [address] [place] [address] PCP - General Family Medicine 08/21/22 documented as of this encounter
--- OUTSIDE RECORDS SUMMARY | 2024-07-11 19:33 | XMS_ITS | Encounter Summary ---
Author Organization [employer] Address [address] [place] [address] Care Team Providers Care Merchant Miller Name Role Phone Edwige Headley MD Primary Care Provider [phone] Reason for Visit * Reason Comments Med Refill Encounter Details Date Type Department Care Team ([facility] st Contact Info) Description 07/05/[address] [facility] CHC MED & PEDS [address] [place], [place] [phone] Edwige Headley MD [address] [place] [address] Social History Tobacco Use Types Packs/Day Years [...] [facility] [address] [place] [address] Maria Guadalupe Rodríguez, RN [address] [place] [address] documented as of this encounter Goals Goal [...] documented as of this encounter Care Teams Merchant Miller Relationship Specialty Start Date End Date Edwige Headley MD [address] [place] [address] PCP - General Family Medicine 08/21/22 documented as of this encounter
--- OUTSIDE RECORDS SUMMARY | 2024-07-11 19:33 | XMS_ITS | Encounter Summary ---
Author Organization [employer] Address [address] [place] [address] Care Team Providers Care Ostomy Nurse Name Role Phone Edwige Headley MD Primary Care Provider [phone] Reason for Visit * Reason Onset Date Comments Appointment Request 04/06/2024 Encounter Details Date Type Department Care Team ([facility] st Contact Info) Description 04/06/2024 Telephone [facility] [address] [place] [address] Edwige Headley MD [address] [place] [address] Appointment Request Social History Tobacco Use Types [...] somewhere else. Contac pt to r/s at [phone] documented in this encounter Plan of Treatment Upcoming Encounters Date Type Department Care Team (Late st Contact Info) Description 08/24/2024 2:30 PM EDT Clinical Support [facility] MED & PEDS [address] [place] [address] Maria Guadalupe Rodríguez, AC [address] [place] [address] documented as of this encounter Goals Goal [...] documented as of this encounter Care Teams Ostomy Nurse Relationship Specialty Start Date End Date Edwige Headley MD [address] [place] [address] PCP - General Family Medicine 08/21/22 documented as of this encounter
--- OUTSIDE RECORDS SUMMARY | 2024-07-11 19:33 | XMS_ITS | Encounter Summary ---
Author Organization [employer] Address [address] [place] [address] Care Team Providers Care Claim Trainee Name Role Phone Edwige Headley MD Primary Care Provider [phone] Encounter Details Date Type Department Care Team [...] 2:30 PM EDT Clinical Support [facility] MED & PEDS [address] [place] [address] Maria Guadalupe Rodríguez, RN [address] [place] [address] documented as of this encounter Goals Goal [...] documented as of this encounter Care Teams Claim Trainee Relationship Specialty Start Date End Date Edwige Headley MD [address] [place] [address] PCP - General Family Medicine 08/21/22 documented as of this encounter
--- OUTSIDE RECORDS SUMMARY | 2024-07-11 19:33 | XMS_ITS | Encounter Summary ---
Author Organization [employer] Address [address] [place] [address] Care Team Providers Care Retail Office Associate Name Role Phone Edwige Headley MD Primary Care Provider [phone] Reason for Visit * Reason Comments Med Refill Encounter Details Date Type Department Care Team ([facility] st Contact Info) Description 10/16/2023 Refill [facility] CHC MED & PEDS [address] [place], [place] [phone] Edwige Headley MD [address] [place] [address] Social History Tobacco Use Types Packs/Day Years [...] 2:30 PM EDT Clinical Support [facility] MED & PEDS [address] [place] [address] Maria Guadalupe Rodríguez, RN [address] [place] [address] documented as of this encounter Goals Goal [...] documented as of this encounter Care Teams Retail Office Associate Relationship Specialty Start Date End Date Edwige Headley MD [address] [place] [address] PCP - General Family Medicine 08/21/22 documented as of this encounter
--- OUTSIDE RECORDS SUMMARY | 2024-07-11 19:33 | XMS_ITS | Encounter Summary ---
Author Organization [employer] Address [address] [place] [address] Care Team Providers Care Seed Cone Picker Name Role Phone Edwige Headley MD Primary Care Provider [phone] Reason for Visit * Reason Onset Date Comments Appointment Request 04/28/2024 Encounter Details Date Type Department Care Team ([facility] st Contact Info) Description 04/28/2024 Telephone [facility] [address] [place] [address] Edwige Headley MD [address] [place] [address] Appointment Request Social History Tobacco Use Types [...] - 04/28/2024 2:22 PM EST Pt canceled DOCTOR OF RADIOLOGY visit on 05/09 because will be out of town from 05/06 thru the holidays spending time with family . Pt would like to reschedule. documented in this encounter Plan of Treatment Upcoming Encounters Date Type Department Care Team (Late st Contact Info) Description 08/24/2024 2:30 PM EDT Clinical Support [facility] MED & PEDS [address] [place] [address] Maria Guadalupe Rodríguez, AC [address] [place], [place] documented as of this encounter Goals [...] documented as of this encounter Care Teams Seed Cone Picker Relationship Specialty Start Date End Date Edwige Headley MD [address] [place] [address] PCP - General Family Medicine 08/21/22 documented as of this encounter
--- OUTSIDE RECORDS SUMMARY | 2024-07-11 19:33 | XMS_ITS | Encounter Summary ---
Author Organization [employer] Address [address] [facility] [address] [place] [address] Care Team Providers Care Plant Anatomy Teacher Name Role Phone Edwige Headley MD Primary Care Provider [phone] Reason for Visit * Reason Comments Annual Exam Encounter Details Date Type Department Care Team ([facility] st Contact Info) Description 06/19/2024 2:45 PM EST Office Visit [facility] CHC MED & PEDS [address] [place] [address] Radha Renee MD [address] [place] [address] Fibromyalgia (Primary Dx); Type 2 diabetes mellitus [...] with hyperglycemia, without long-term current useof insulin ([facility]) ??? Urinary incontinence ??? Moderate persistent asthma ??? Alzheimer's dementia (CMS/[facility]) ??? Chronic diastolic heart failure (CMS/HCC) ??? Vertigo ??? Coronary artery disease of [place] heart with stable angina pectoris (CMS/[facility]) ??? CKD (chronic kidney disease), stage II ??? Gastroesophageal reflux disease ??? Type 2 diabetes mellitus with hyperglycemia, without long-term current use of insulin (CMS/[facility]) ??? Hypertension ??? Headache, common migraine, [...] each 0 ??? Lancets (OneTouch Delica Plus [id number]) misc 1 Units in the morning. Please [...] hyperglycemia, without long-term current use of insulin ([facility]) Comments: Stable No change Continue with [...] [facility] [address] [place] [address] Maria Guadalupe Rodríguez RN [address] [place] [address] Scheduled Orders Name Type Priority Associated Diagnoses Orde r Schedule Albumin, Random Urine W/Creatinine Lab Routine Type [...] Procedure Name Priority Date/Time Associated Diagnosis Comments HEPATITIS C AB W/REFL TO HCV RNA, QN, PCR Routine 07/07/2024 9:23 AM EST Chronic diastolic heart failure (CMS/HCC) POCT GLUCOSE Routine 06/19/2024 2:34 PM EST Type 2 diabetes mellitus with hyperglycemia, without long-term current use of insulin (CMS/HCC) documented in this encounter Results * Hepatitis C Antibody with Reflex to HCV, RNA, Quantitative, Real-Time PCR (07/07/2024 9:23 AM EST) Hepatitis C Antibody Nonreactive Nonreactive [facility] Comment:Antibodies to HCV no t detected; does not exclude early acuteHCV infection. Blood Venous blood specimen / Unknown 07/07/2024 9:23 AM EST 07/07/2024 1:55 PM EST us Radha Renee MD LAB BLOOD ORDERABLES Final Result [facility] [address] [place] [address] [phone] * POCT glucose manually resulted (06/19/2024 2:34 PM EST) Glucose Blood, POC 113 60 - 200 mg/dL QC Media Lot # Comment:[id number] Lot# Expiration Date Comment:08/22/2024 Blood Capillary blood [...] Noted Time PHQ-9 Depression Total Score: 10 10/28/2 024 12:52 PM EDT documented as of this encounter Care Teams Plant Anatomy Teacher Relationship Specialty Start Date End Date Edwige Headley MD [address] [place] [address] PCP - General Family Medicine 08/21/22 documented as of this encounter
--- OUTSIDE RECORDS SUMMARY | 2024-07-11 19:33 | XMS_ITS | Encounter Summary ---
Author Organization [employer] Address [address] [place] [address] Care Team Providers Care Face Burler Name Role Phone Edwige Headley MD Primary Care Provider [phone] Encounter Details Date Type Department Care Team [...] Description 08/24/2024 2:30 PM EDT Clinical Support [facility] MED & PEDS [address] [place] [address] Maria Guadalupe Rodríguez, RN [address] [place] [address] documented as of this encounter Goals Goal [...] documented as of this encounter Care Teams Face Burler Relationship Specialty Start Date End Date Edwige Headley MD [address] [place] [address] PCP - General Family Medicine 08/21/22 documented as of this encounter
== END 2024-07-11 16:28 | disposition home or self-care (01) ==
PROVIDERS: PCP Family Medicine; Visit Provider Nurse Practitioner Family
DX: J44.89 Other specified chronic obstructive pulmonary disease (principal); R06.00 Dyspnea, unspecified
CPT/HCPCS: 99214

== ENCOUNTER → 2024-07-11 15:53 | Outpatient (BNVA) | payer OTHER, SELFPAY | PROVIDERS: PCP Family Medicine; Visit Provider Nurse Practitioner Family | DX: J44.89 Other specified chronic obstructive pulmonary disease (principal); R06.00 Dyspnea, unspecified | CPT/HCPCS: 99212 ==

== ENCOUNTER 2024-07-17 15:33 | Outpatient (AMB) | payer OTHER, MEDICAID, SELFPAY ==
--- NOTE | 2024-07-17 15:34 | A.OFFVIS_ITS ---
Vital Signs 07/17/24 15:38 Height 5 ft Weight 123 lb BMI 24.0 BP 110/61 Blood Pressure Location Lt brachial Position Sitting Pulse 82 Intake Visit Reasons: 3 months f/u Intake Note: Ed presents in the office as a 3 month follow up. CC: She states that she is having the same concerns - she states the studies did not show anything. She feels like there is a ball at the entrance of her anus. She feels an intense pains in her rectum. She feels like it is out of nowhere - it comes and goes and lasts up to 5 minutes. It will happen more frequent - before it was once a week. Allergies pregabalin [From Lyrica] Allergy (Intermediate, Verified 07/17/24 15:38) Rash HPI Comments Details: 77 y.o F with PMH of who is here for refractory GERD . 11/16/22: Pt accompanied by her and daughter. Pt reports heartburn sensation for almost a decade now. Happens after food and associated with nausea. Has led to significant decrease in appetite with resultant weight loss of almost 4 lbs in just last one month. Pain often then localises to RUQ. Has been taking pepcid and carafate - feels that carafate helps more. Also takes Omeprazole 20 PRN. Pt also takes naproxen occasionally for that same abdominal pain. Does not smoke or drink. Has never had an EGD, last colo >10 years ago in [place]. Does not remember if she had polyps. s/p CCY. Of note, also reports spasm in around her umbilicus whenever she laughs or with any sudden movement and is concerned for ? hernia. 12/14/22: Here with her . Reports improvement in abdominal pain however heartburn continues to be an issue despite taking PPI as prescribed now i.e daily at least 30-40 mins before first meal of the day. Continues to use Naproxen frequently. 02/12/23: EGD/colo: ESOPHAGUS: Circular folds noted in the proximal esophagus during intubation - biopsies obtained to check for EOE. GE junction at 34 cms, small hiatal hernia 34 to 36 cms. No esophagitis or Hassan's. STOMACH: Diffuse gastritis DUODENUM: Normal - biopsied to check for celiac sprue Colonoscopy Findings: No polyps were detected Moderate diverticulosis seen in the left colon Small hemorrhoids on retroflexed exam. Path: A. Small bowel, biopsy: Small bowel mucosa with preserved villi and no specific change; no evidence of celiac disease. B. Gastric antrum, biopsy: Gastric antral mucosa with reactive changes and minimal chronic active gastritis; negative for intestinal metaplasia and dysplasia. C. Esophagus, proximal, biopsy: Squamous mucosa with no specific change; no evidence of eosinophilic esophagitis; no columnar mucosa present. 02/26/23: Here for post endoscopy follow up. Seen with reamer hand. Reports intermittent R sided discomfort still. Also notices heartburn with nausea some nights despite taking pepcid and then has to take omeprazole on top. Has stopped all nsaids including naproxen. Reviewed results of EGD and colo including non-H pylori gastritis. 03/24/24: Pt called to make this appt for R sided abd pain. Started almost a month ago. Starts out of nowhere lasts for 5 mins. Gets worse on certain positions such as laying down or going from standing to sitting. Had a fall on her R side 2 months ago. Was seen in urgent care for this last month and had rib XRAYS. Results pending. 04/18/24: Here for follow up. Reports improvement of pain. Now pain is mostly in the flank. US Abd results reviewed. Fatty liver noted but normal LFTs which argue against active HOPSON. 1. Status post cholecystectomy. 2. Pancreas not visualized obscured by bowel gas. 3. Increased echogenicity of the liver parenchyma, this can be seen in the setting of hepatic steatosis or liver parenchymal disease. 07/17/24: Accompanied by her daughter. Was set up for follow up for abd pain but mentions severe anal pain. Present x 2 years but prev had not mentioned it due to other issues ongoing. Present most of the time but gets worse when trying to defecate. Pressure like sensation present in the rectum. No rectal bleeding. Is constipated most of the times with significant straining. RUQ pain is resolved. COUNTS INCLUDE 234 BEDS AT [facility] Medical History Atherosclerotic cardiovascular disease PVD (peripheral vascular disease) Breast nodule Urinary incontinence Osteoporosis Dementia in Alzheimer's disease Chronic diastolic (congestive) heart failure Hypertension Vitamin D deficiency Carpal tunnel syndrome Cervical disc disorder CKD (chronic kidney disease), stage II TONY (generalized anxiety disorder) Vertigo CAD (coronary artery disease) GERD (gastroesophageal reflux disease) Migraine Diabetes mellitus Asthma Surgical History H/O hand surgery Hx of cardiac catheterization History of hernia repair History of left inguinal hernia repair History of right inguinal hernia repair History of cholecystectomy Hx of colonoscopy History of esophagogastroduodenoscopy (EGD) Family History Mother Heart problem Arthritis Social History Household Members: Spouse, Family and Children Housing: House Alcohol intake: never Patient Tobacco Use Status: Never used Tobacco Second Hand Smoke Exposure: No service: No Review of Systems Const All systems reviewed & are unremarkable except as noted in HPI and below Physical Exam Vital Signs: Last Vital Signs Pulse 82 07/17/24 15:38 BP 110/61 07/17/24 15:38 BMI result Body Mass Index 24.0 No apparent distress Nonicteric Abdomen soft, nondistended rectal: no anal fissure or ext hemorrhoids, large internal hemorrhoids no blood on gloved finger Alert and oriented x3, normal gait Assessment & Plan Assessment & Plan (1) Rectal pressure: Code(s): R19.8 - Other specified symptoms and signs involving the digestive system and abdomen Category: Medical (2) Hemorrhoids: Code(s): K64.9 - Unspecified hemorrhoids Category: Medical Plan Clinical assessment consistent with rectal pressure secondary to large internal hemorrhoids. Constipation seems to be driving this. Plan: -avoid straining and constipation -utilize senna and or MiraLax -topical hydrocortisone -instructions for fiber intake and Sitz baths also provided to the patient -no red flags to warrant emergent colonoscopy at this time Follow-up in 6-8 weeks Medications: New sennosides (senna) 8.6 mg PO DAILY 90 tabs 0RF polyethylene glycol 3350 (Miralax) 17 grams PO DAILY PRN 238 grams 0RF constipation 90 days hydrocortisone 2.5% (Anusol-HC) 1 appl [place] BEDTIME PRN 30 grams 0RF hemorrhoids 14 days Patient Instructions: - Drink plenty of fluids - Take fiber 1 tbsp mixed in a cup of water daily - Take miralax 17g and/or senna IF constipated - Sitz baths - Steroid cream daily at night for 10-14 nights - Avoid aggressive wiping, use jefferson bottles to wash and then pat dry. Coding Level of Care Code Est Pt Level 4 (78704) Diagnoses Rectal pressure R19.8 Hemorrhoids K64.9
[2024-07-17 15:38] VITALS: BP 110/61; PULSE 82; BMI 24.0
--- OUTSIDE RECORDS SUMMARY | 2024-07-17 18:23 | XMS_ITS | Encounter Summary ---
Author Organization [employer] Address [address] [place] [address] Care Team Providers Care Deployment Specialist Name Role Phone Edwige Headley MD Primary Care Provider [phone] Reason for Visit * Reason Onset Date Comments PT-1 03/28/2024 Encounter Details Date Type Department Care Team ([facility] st Contact Info) Description 03/28/2024 Telephone [facility] MEDICINE [address] [place] [address] Edwige Headley MD [address] [place] [address] PT-1 Social History Tobacco Use Types Packs/Day [...] Y/N: Yes Provider name or facility name: [facility] Facility Address: [address] [place] [address] Escort needed: Y/N: Yes Do you have a wheelchair: Y/N: No If yes- Manual or electric: (Uses Walker) Visits: Once a month documented in this encounter Plan of Treatment Upcoming Encounters Date Type Department Care Team (Late st Contact Info) Description 07/20/2024 10:45 AM EST Office Visit [facility] MED & PEDS [address] [place] [address] Nina Clemons MD [address] [place] [address] 08/24/2024 2:30 PM EDT Clinical Support [facility] PEDS [address] [place] [address] Maria Guadalupe Rodríguez RN [address] [place] [address] documented as of this encounter Goals Goal [...] documented as of this encounter Care Teams Deployment Specialist Relationship Specialty Start Date End Date Edwige Headley MD [address] [place] [address] PCP - General Family Medicine 08/21/22 documented as of this encounter
--- OUTSIDE RECORDS SUMMARY | 2024-07-17 18:23 | XMS_ITS | Encounter Summary ---
Author Organization [employer] Address [address] [place] [address] Care Team Providers Care Electrolytic De Scaler Name Role Phone Edwige Headley MD Primary Care Provider [phone] Reason for Visit * Reason Onset Date Comments Nurse Triage 07/17/2024 Encounter Details Date Type Department Care Team ([facility] st Contact Info) Description 07/17/2024 Telephone [facility] MEDICINE [address] [place] [address] Edwige Headley MD [address] [place] [address] Nurse Triage Social History Tobacco Use Types Packs/Day Years [...] encounter Miscellaneous Notes * Telephone Encounter - Mikala Phillip RN - 07/17/2024 4:23 PM EST Call returned to Ed Hoffmann to triage below. Reports having left thigh pain x 3 weeks. Pt denies any swelling, redness or rash. Denies any recent injury or fall. Denies any numbness. Pt reports has full ROM of both knee and hip. Patient states had this pain prior but had resolved on own and then recurred. Pt advised of disposition, agrees to sick on site with team provider since PCP currently still out of office. Reviewed home care advise, ER precautions and reasons to call back. Protocol Used: Leg Pain (Adult) Protocol-Based Disposition: See in Office or Video Visit within 2 Weeks Future Appointments Date Time Provider Department Center 07/20/2024 10:45 AM Nina Clemons MD [facility] 08/24/2024 2:30 PM Maria Guadalupe Rodríguez RN [facility] Insurance verified as active per Real Time Eligibility in [facility]. Video visit offer not recorded Positive Triage Question: * Mild pain (e.g., does not interfere with normal activities) and present > 7 days * All higher-acuity triage questions were negative Care Advice Discussed: * Reassurance and Education - Leg Pain * Pain Medicines * Reasons To Call Back - Signs of infection occur (such as spreading redness, warmth, fever) - You become worse * Telephone Encounter - Mikala Phillip RN - 07/17/2024 3:55 PM EST No gastroenterology nurse practitioner needed as this copywriter speaks Cambodian. [facility] via [employer] to triage below as this copywriter is remote . No answer, LVM to return call to [facility] line [phone] * Telephone Encounter - Michelle Meeks - 07/17/2024 3:07 PM EST Symptoms: Leg Pain - Not From Injury, Hand or Wrist Pain - Not From Injury Outcome: Schedule an urgent appointment (within 1 hour) or talk to a nurse or provider soon Reason: Trouble walking The caller accepted this outcome. [phone] slovenian documented in this encounter Plan of Treatment Upcoming Encounters Date Type Department Care Team (Late st Contact Info) Description 07/20/2024 10:45 AM EST Office Visit [facility] MED & PEDS [address] [place] [address] Nina Clemons MD [address] [place] [address] 08/24/2024 2:30 PM EDT Clinical Support [facility] MED & PEDS [address] [place] [address] Maria Guadalupe Rodríguez RN [address] [place] [address] documented as of this encounter Goals Goal [...] documented as of this encounter Care Teams Electrolytic De Scaler Relationship Specialty Start Date End Date Edwige Headley MD [address] [place] [address], [place] [address] PCP - General Family Medicine 08/21/22 documented as of this encounter
--- OUTSIDE RECORDS SUMMARY | 2024-07-17 18:23 | XMS_ITS | Clinical Summary ---
Author Organization [employer] Address [address] [facility] [address] [place] [address] Care Team Providers Care Broacher Name Role Phone Edwige Headley MD Primary Care Provider [phone] Allergies Active Allergy Reactions Criticality Noted Date [...] each 023 Active Lancets (OneTouch Delica Plus Tatflo64Y) misc 1 Units in the morning. Please [...] 5 MG tabletIndicatio ns:Alzheimer's disease, unspecified (CODE) (CMS/HCC) TAKE 1 TABLET BY MOUTH TWICE DAILY IN THE MORNING AND IN THE EVENING 60 tablet 025 Active memantine (Namenda) 5 MG tablet 024 2024 Discontinued famotidine (Pepcid) 40 MG tablet TAKE 1 TABLET BY MOUTH AT BEDTIME 90 tablet 1 024 2024 Discontinued gabapentin (Neurontin) 300 MG capsule TAKE 1 CAPSULE BY MOUTH THREE TIMES DAILY 90 capsule 2 024 2024 Discontinued celecoxib (CeleBREX) 100 MG capsule TAKE 1 [...] swallow test came back normal. Referred to medical biller Assessment & Plan (07/20/2023 9:51 PM EST): [...] be prescribed steroids. Recommended patient to call Jointer Operator to schedule an appointment to get further [...] Center 10/18/2023 3:30 PM Edwige Headley MD [facility] Assessment & Plan (03/19/2023 3:58 PM EDT): [...] and daughter. PLAN: 1. Follow up with [facility]: Not recommended for follow-up 2. Patient goal is to be able to manage her symptoms without medication. 3. Behavioral Recommendations a. Referral to Ind. therapy b. Practice of Coping skills for Anxiety c. Contact this investigative writer for support as needed Encounters Date Type Department Care Team Description 07/17/[address] [facility] [address] [place] [phone] Edwige Headley MD Nurse Triage 07/06/[address] [facility] [address] [place] [phone] Edwige Headley MD Alzheimer's disease, unspecified (CODE) ([facility]) 07/06/[address] [address] Edwige Headley MD Lab Orders 07/05/2024 Refill [facility] [address] [place] [address] Edwige Headley MD 06/26/2024 Refill [facility] [address] [place] [address] Edwige Headley MD 06/20/2024 1:00 PM EST Clinical Support [facility] [address] [place] [address] Maria Guadalupe Rodríguez RN Fibromyalgia 06/20/2024 Travel 06/20/2024 Refill [facility] [address] [place] [address] Maria Guadalupe Rodríguez RN Fibromyalgia 06/19/2024 2:45 PM EST Office Visit [facility] [address] [place] [address] Radha Renee MD Fibromyalgia (Primary Dx); Type 2 diabetes mellitus with hyperglycemia, without long-term current use of insulin ([facility]); Chronic diastolic heart failure ([facility]); Chronic obstructive pulmonary disease, unspecified COPD type ([facility]) 06/19/2024 Travel 06/13/2024 Refill [facility] [address] [place] [address] Edwige Headley MD Fibromyalgia 05/30/2024 1:00 PM EST Office Visit [facility] [address] [place] [address] Radha Renee MD Chronic obstructive pulmonary disease, unspecified COPD type ([facility]/HCC) (Primary Dx); Raynaud's phenomenon without gangrene; Other fatigue; Type 2 diabetes mellitus with hyperglycemia, without long-term current use of insulin ([facility]); Primary hypertension 05/30/2024 Travel 05/25/2024 Patient Outreach [facility] [address] [place] [address] Edwige Headley MD Transition Of Care (Tcm) (HDF- scheduled and SDOH screening completed on 10/29/2023) 05/25/[address] [facility] [address] [place] [phone] Edwige Headley MD Hospital Follow-up 05/24/[address] [facility] [address] [place] [phone] Mary Santiago MD 05/16/2024 Orders Only [facility] External Provider, [facility] 05/16/[address] [facility] [address] [place] [phone] Brody Carter MD 05/10/2024 Refill [facility] [address] [place], [place] [phone] Edwige Headley MD 04/28/[address] [facility] [address] [place] [phone] Edwige Headley MD Appointment Request 04/27/[address] [facility] [address] [place] [phone] Edwige Headley MD from Last 3 Months Immunizations Name Administration [...] Description 07/20/2024 10:45 AM EST Office Visit [facility] [address] [place] [address] Nina Clemons MD [address] [place] [address] 08/24/2024 2:30 PM EDT Clinical Support [facility] [address] [place] [address] Maria Guadalupe Rodríguez RN [address] [place] [address] Health Maintenance Due Date Last Done Comments [...] Results * T-SPOT??.TB (07/07/2024 9:23 AM EST) [facility] T Spot TB Negative Negative [facility] Comment:A negative test resu lt [...] as aquantitative test. TS PANEL A 0 [facility] TS PANEL B 0 [facility] Negative Control Passed [facility] Positive Control Passed [facility] Comment:For additional infor nika, please refer [email or web address].Oxyntix/faq/VGL898(This link is being provided for informational/educational purposes only.)THIS TEST WAS PERFORMED AT:[employer]/[id number] [place] [address]TKRLBLEVIRGINIA DAN MD,PHD 07/07/2024 9:23 AM EST 07/07/2024 1:55 PM EST us Edwige Headley MD LAB BLOOD ORDERABLES Final Re sult Performing Organization Address [facility]/ZIP Co de Phone Number [facility] [address] [place] [phone] * Hepatitis C Antibody with Reflex to HCV, RNA, Quantitative, Real-Time PCR (07/07/2024 9:23 AM EST) Hepatitis C Antibody Nonreactive Nonreactive [facility] Comment:Antibodies to HCV no t detected; does not exclude early acuteHCV infection. Blood Venous blood specimen / Unknown 07/07/2024 9:23 AM EST 07/07/2024 1:55 PM EST us Radha Renee MD LAB BLOOD ORDERABLES Final Result Performing Organization Address [facility] Co de Phone Number [facility] [address] [place] [phone] * POCT SENAIT-14 Urine Drug Screen (06/20/2024 2:05 PM EST) Urine Urine specimen obtained by clean catch procedure / Unknown 06/20/2024 2:05 PM EST Narrative Maria Guadalupe Rodríguez RN - 06/20/2024 2:05 PM EST negative for THC, MOP, OXY, ANTON, MET, AMP, BZO, BAR, MTD, BUPG, TCA, MDMA, PCP, PPX. Lot# [id number] Exp: 04-22-25 Edwige Headley MD POINT OF CARE TEST ENTER/EDIT ORDERABLES Final Result * POCT glucose manually resulted (06/19/2024 2:34 PM EST) Only the most recent of2 resultswithin the time period is included. Glucose Blood, POC 113 60 - 200 mg/dL QC Media Lot # Comment:[id number] Lot# Expiration Date Comment:08/22/2024 Blood Capillary blood specimen / Unknown 06/19/2024 2:34 PM EST Radha Renee MD POINT OF CARE TEST ENTER/ED IT ORDERABLES Final Result * Vitamin D, 25-Hydroxy, Total, Immunoassay (05/31/2024 12:44 PM EST) Pathologist [facility] Vitamin D 25-OH Total 33.6 >30 ng/mL [facility] Comment:Health Based Referen ce Values*< 20 ng/mL Qkxhkjkwx92-32 ng/mL Insufficient> 30 ng/mL Sufficient*Yessy MENDOZA. N [...] Renee MD LAB BLOOD ORDERABLES Final Result [facility] [address] [place] [address] [phone] * (ABNORMAL) Vitamin B12/Folate, Serum Panel (05/31/2024 12:44 PM EST) Pathologist [facility] Vitamin B12 944(H) 200 - 900 pg/mL [facility] Comment:NORMAL 200-900 PG/ML INDETERMINATE 160-199 PG/ML DEFICIENT < 160 PG/ML Folate 11.9 > or = 4.0 ng/mL [facility] Comment:Reference Values:> o r = 4.0 [...] BLOOD ORDERABLES Final Result Performing Organization Address [facility] Co de Phone Number [facility] [address] [place] [phone] * TSH W/Reflex to FT4 (05/31/2024 12:44 PM EST) [facility] TSH reflex Free T4 1.02 0.32 - 4.0 uIU/mL [facility] Blood Venous blood specimen / Unknown 05/31/2024 12:44 PM EST 05/31/2024 2:20 PM EST us Radha Renee MD LAB BLOOD ORDERABLES Final Result Performing Organization Address [facility]/ZIP Co de Phone Number [facility] [address] [place] [phone] * (ABNORMAL) Vitamin B1 (05/31/2024 12:44 PM EST) [facility] Vitamin B1 41(A) 8 - 30 nmol/L [facility] Comment:Vitamin supplementat ion within 24 hours prior toblood draw may affect the accuracy of the results.This test was developed and its analytical performancecharacteristics have been determined by [employer] [place], [place]. It hasnot been cleared or approved by the U.S. Food and DrugAdministration. This assay has been validated pursuantto the CLIA regulations and is used for clinicalpurposes.THIS TEST WAS PERFORMED AT:[employer]/[facility] [place] [address]ECXGHLW W. MASON,MD,PHD Blood Venous blood specimen / Unknown 05/31/2024 12:44 PM EST 05/31/2024 2:20 PM EST Radha Renee MD LAB BLOOD ORDERABLES Final Result Performing Organization Address City/[facility]/ZIP Co de Phone Number [facility] [address] [place] [address] [phone] * Magnesium (05/31/2024 12:44 PM EST) Only the most recent of2 resultswithin the time period is included. [facility] Magnesium 1.8 1.6 - 2.6 mg/dL [facility] Blood Venous blood specimen / Unknown 05/31/2024 12:44 PM EST 05/31/2024 2:20 PM EST Radha Renee MD LAB BLOOD ORDERABLES Final Result Performing Organization Address [facility]/ZIP Co de Phone Number [facility] [address] [place] [address] [phone] * (ABNORMAL) POCT HGB A1C (05/30/2024 1:42 PM EST) [facility] Hemoglobin A1C 6.9(A) 4.0 - 6.0 % QC Media Lot # [id number] Lot# Expiration Date [id number] Blood 05/30/2024 1:42 PM EST us Radha Renee MD POINT OF CARE TEST ENTER/ED IT ORDERABLES Final Result * (ABNORMAL) Urinalysis, Complete, with Reflex to Culture (05/16/2024 2:49 PM EST) Color Urine Yellow [facility] Appearance Urine Clear [facility] PH 5.0 5.0 - 9.0 [facility] Glucose Urine UA Negative Negative mg/dL [facility] Urine Blood Trace(A) Negative [facility] Specific [place] - Urine 1.010 1.005 - 1.025 [facility] Urine Protein Negative Neg-Trace mg/dL [facility] Urine Ketones Negative Negative mg/dL [facility] Nitrite Urine Negative Negative [facility] Leukocyte Esterase Urine Negative Negative [facility] RBC Urine 0-2 0 - 2 /HPF [facility] Urine WBC 0-5 0 - 5 /HPF [facility] Urine Squamous Epithelial Cell 0-2 0 - 2 /HPF [facility] Urine Bacteria None Seen None Seen [facility] Hyaline Casts, Urine 0-2 0 - 2 /LPF [facility] 05/16/2024 2:49 PM EST 05/16/2024 2:56 PM EST Narrative [facility] - 05/16/2024 3:05 PM EST [id number], Clean Catch us Generic External Data Provider LAB URINE ORDERAB LES Final Result [facility] [address] [place], [place] [phone] * (ABNORMAL) VENOUS BLOOD GAS (05/16/2024 1:17 PM EST) VBG pH 7.37 7.32 - 7.43 [facility] Comment:METER #: [id number] additional_comment: Tay arnold VBG PCO2 53 mmHg [facility] Comment:METER #: [id number] additional_comment: Tay arnold VBG PO2 47 mmHg [facility] Comment:METER #: [id number] additional_comment: Tay arnold VBG Base Excess 4.7 mmol/L [facility] Comment:METER #: [id number] additional_comment: Tay KAURG HCO3 31(H) 22 - 26 mmol/L [facility] Comment:METER #: [id number] additional_comment: Tay arnold O2 Sat, Darren 72.0 % [facility] Comment:METER #: [id number] additional_comment: Tay arnold 05/16/2024 1:17 PM EST 05/16/2024 1:23 PM EST Generic External Data Provider LAB BLOOD ORDERAB LES Final Result Performing Organization Address City/[facility]/ZIP Co de Phone Number [facility] [address] [place] [phone] * High Sensitivity Troponin I (05/16/2024 1:10 PM EST) Pathologist [facility] TROPONIN I HIGH SENSITIVITY <2.7 <3.5 - 17.0 ng/L [facility] Comment:The Goldstein high sens itivity Troponin-I results should beused in conjunction with other diagnostic information suchas ECG, clinical observations and information, and patientsymptoms to aid in the diagnosis of AR. 05/16/2024 1:10 PM EST 05/16/2024 1:15 PM EST us Generic External Data Provider LAB BLOOD ORDERAB LES Final Result Performing Organization Address City/[facility]/ZIP Co de Phone Number [facility] [address] [place] [phone] * Procalcitonin (05/16/2024 1:10 PM EST) Pathologist [facility] Procalcitonin 0.05 ng/mL [facility] Comment: Procalcitonin (PCT) Reference Range:PCT greater [...] in interpreting PCT results fromdifferent laboratories and methodologies.References:[employer]/Society of CriticalCare Medicine Consensus Conference Committee. ??Definitionsfor sepsis and organ failure and guidelines for the use ofinnovative therapies in sepsis. ??Crit Care Cvz1901;20(6):864-874.Adrián B, Rodney AGARWAL, Jennyfer H, et al. ??Calcitoninprecursors are reliable markers of sepsis in a medicalintensive care unit. ??Crit Care Med 2000;363:600-607.Terese S, Solange K, Jaylyn C, et al. ??Diagnosticvalue of procalcitonin, interleukin-6 and interleukin-8 incritically ill patients admitted with suspected sepsis. ??AMJ Respir Crit Care Med 2001;164:396-402.US Food and Drug Administration. ??510(k) substantialequivalence determination decision summary for [facility] PCTLIA.http://www.accessdata.fda.fov/cdr_docs/reviews/[email or web address].pdf.Published May 2004. ??Accessed October 2016. 05/16/2024 1:10 PM EST 05/16/2024 1:15 PM EST us Generic External Data Provider LAB BLOOD ORDERAB LES Final Result [facility] [address] [place] [phone] * (ABNORMAL) CBC auto differential (05/16/2024 1:10 PM EST) White Blood Count 8.0 4.8 - 10.8 X10*3/uL [facility] Red Blood Count 4.33 4.20 - 5.50 X10*6/uL [facility] Hemoglobin 13.3 12.0 - 16.0 g/dl [facility] Hematocrit 39.3 37.0 - 47.0 % [facility] Mean Corpuscular Volume 90.8 80.0 - 98.0 fL [facility] Mean Corpuscular Hemoglobin 30.7 27.0 - 33.0 pg [facility] Mean Corpuscular HGB Conc 33.8 31.0 - 35.0 g/dl [facility] Red Cell Distribution Width 14.5 11.0 - 16.0 % [facility] Platelet Count 184 160 - 400 X10*3/uL [facility] Mean Platelet Volume 10.4 9.4 - 12.3 fL [facility] Neutrophils Percent Auto 50.6 45 - 73 % [facility] Imm Gran Pct Auto 0.5(H) 0.0 - 0.4 % [facility] Lymphocytes Percent Auto 38.7 20 - 40 % [facility] Monocytes Percent Auto 7.9 2 - 11 % [facility] Eosinophils Percent Auto 2.0 0 - 4 % [facility] Basophils Percent Auto 0.3 0 - 2 % [facility] NRBC Pct Auto 0.0 0.0 - 0.2 /100WBC [facility] Neutrophils Absolute Auto 4.0 2.0 - 8.3 x10*3/uL [facility] Imm Gran Abs Auto 0.04(H) 0.00 - 0.03 X10*3/uL [facility] Lymphocytes Absolute Auto 3.1 1.2 - 4.9 X10*3/uL [facility] Monocytes Absolute Auto 0.6 0.1 - 1.2 X10*3/uL [facility] Eosinophils Absolute Auto 0.2 0.0 - 0.4 X10*3/uL [facility] Basophils Absolute Auto 0.0 0.0 - 0.2 X10*3/uL [facility] NRBC Abs Auto 0.000 0.0 - 0.012 X10*3/uL [facility] 05/16/2024 1:10 PM EST 05/16/2024 1:15 PM EST Generic External Data Provider LAB BLOOD ORDERAB LES Final Result Performing Organization Address City/[facility]/ZIP Co de Phone Number [facility] [address] [place] [phone] * C-reactive Protein (05/16/2024 1:10 PM EST) [facility] C Reactive Protein <0.10 < or = 0.50 mg/dL [facility] 05/16/2024 1:10 PM EST 05/16/2024 1:15 PM EST Generic External Data Provider LAB BLOOD ORDERAB LES Final Result Performing Organization Address [facility] Co de Phone Number [facility] [address] [place] [phone] * B Type Natriuretic Peptide (BNP) (05/16/2024 1:10 PM EST) [facility] B Type Natriuretic Peptide <10 <100 pg/mL [facility] Comment:For those patients w ho are being treated with Natrecor(nesiritide, recombinant BNP), BNP testing should beperformed at least two hours post treatment in order toensure that only endogenous levels of BNP are detected. 05/16/2024 1:10 PM EST 05/16/2024 1:15 PM EST Generic External Data Provider LAB BLOOD ORDERAB LES Final Result Performing Organization Address [facility] Co de Phone Number [facility] [address] [place] [phone] * Lipase (05/16/2024 1:10 PM EST) Pathologist [facility] Lipase 21 8 - 78 U/L [facility] 05/16/2024 1:10 PM EST 05/16/2024 1:15 PM EST Generic External Data Provider LAB BLOOD ORDERAB LES Final Result Performing Organization Address [facility] Co de Phone Number [facility] [address] [place] [phone] * (ABNORMAL) Lactic Acid (05/16/2024 1:10 PM EST) Lactic Acid 3.0(HH) 0.5 - 2.0 mmol/L [facility] Comment:Critical value for L ACTIC: Results called to and read backby: CHARLA Person calling: JAVIERNKIR Date: 05/16/24 Time:1347 05/16/2024 1:10 PM EST 05/16/2024 1:15 PM EST Generic External Data Provider LAB BLOOD ORDERAB LES Final Result Performing Organization Address [facility] Co de Phone Number [facility] [address] [place] [phone] * Hepatic Function Panel (05/16/2024 1:10 PM EST) Bilirubin, Total 0.4 0.0 - 1.0 mg/dL [facility] Bilirubin, Direct 0.2 0.0 - 0.5 mg/dL [facility] Aspartate Amino Transferase 28 5 - 31 U/L [facility] Alanine Aminotransferase 31 0 - 31 U/L [facility] Total Protein 7.4 6.5 - 8.0 g/dL [facility] Albumin Level 4.0 3.5 - 5.0 g/dL [facility] Alkaline Phosphatase 66 39 - 117 U/L [facility] 05/16/2024 1:10 PM EST 05/16/2024 1:15 PM EST us Generic External Data Provider LAB BLOOD ORDERAB LES Final Result Performing Organization Address City/[facility]/ZIP Co de Phone Number [facility] [address] [place] [phone] * (ABNORMAL) Basic Metabolic Panel (05/16/2024 1:10 PM EST) Sodium 142 135 - 145 mmol/L [facility] Potassium 3.9 3.3 - 5.1 mmol/L [facility] Chloride 108 96 - 108 mmol/L [facility] Carbon Dioxide 26 22 - 29 mmol/L [facility] Anion Gap 12 12 - 20 [facility] Urea Nitrogen (BUN) 12 9 - 16 mg/dL [facility] Creatinine, Serum 0.83 0.5 - 1.4 mg/dL [facility] Creatinine Clr Calc Pharmacy 49.6 [facility] Comment:Provided height and weight: 165.1 cm,56.3 kg.eGFR (calculated from the MDRD study equation) and eCrCl(calculated from the Cockcroft-Gault equation) are based ondifferent parameters and may not yield comparable results.If eCrCl result is absurd, please check patient'sheight/weight. Estimated Glomerular Filt Rate >60 [facility] Comment:Chronic Kidney Disea se: Estimated GFR < 60 mL/min/1.50o1Duxklw Kidney Disease: Estimated GFR < 15 mL/min/1.73m2 Glucose 149(H) 60 - 115 mg/dL [facility] Calcium 9.1 8.4 - 10.2 mg/dL [facility] 05/16/2024 1:10 PM EST 05/16/2024 1:15 PM EST us Generic External Data Provider LAB BLOOD ORDERAB LES Final Result Performing Organization Address City/[facility]/ZIP Co de Phone Number [facility] [address] [place] [phone] [phone] * SARS-CoV-2 RNA, Influenza A/B, and RSV RNA, Ql NAAT (05/16/2024 1:09 PM EST) Influenza A PCR NEGATIVE Negative [facility] Influenza B PCR NEGATIVE Negative [facility] Resp Syncy Virus RNA Qual PCR NEGATIVE Negative [facility] SARS COV2 PCR NEGATIVE Negative [facility] Comment:All test results mus t be [...] use by authorized laboratories.Testing performed on the [employer] GeneXpert utilizingreal-time RT-PCR.All SARS CoV2 and positive influenza A/B results arereported to [facility]. 05/16/2024 1:09 PM EST 05/16/2024 1:15 PM EST us Generic External Data Provider LAB MICROBIOLOGY - GENERAL ORDERABLES Final Result Performing Organization Address [facility]/ZIP Co de Phone Number [facility] [address] [place] [phone] * Blood Culture (Second) (05/16/2024 12:52 PM EST) Blood Venous blood specimen / Unknown 05/16/2024 12:52 PM EST 05/16/2024 1:33 PM EST Comment:Blood Narrative [facility] - 05/16/2024 1:33 PM EST Multiple attempts for 2nd set of BCs. Unable to obtain at this time. aware. Blood Culture (Second) Test not performed CANCELED BY PROVIDER Specimen Source: Blood us Generic External Data Provider LAB MICROBIOLOGY - GENERAL ORDERABLES Final Result Performing Organization Address [facility]/ZIP Co de Phone Number [facility] [address] [place] [phone] * XR Chest 1 View (05/16/2024 12:50 PM EST) Anatomical Region Laterality Modality Chest Radiographic Patricia ging 05/16/2024 12:5 0 PM EST Narrative 05/16/2024 1:24 PM EST ? [facility] ?[address] ?[place] [address] ?XRay Report ? Signed ? Patient: Puri Hoffmann,Blasina ?MR#: M ?? [id number] ? : 1945 ?Acct:[id number] ? Age/Sex: 78 / F ?ADM Date: 05/16/24 ? Loc: HO.ED ? Attending Dr: ? Ordering Physician: Nandini Dumont DO ?? Date of Service: 05/16/24 ?? Procedure(s): XR chest 1V ?? Accession Number(s): [id number] ? cc: Nandini Dumont DO; Edwige Headley [...] DD/ 1250 ? TD/TT: 05/16/24 1255 ? Mains And Service Supervisor: MSM ? Procedure Note Drea, Jose - 05/16/[address] [address] XRay Report Signed Patient: Arthur Holguin#: M [id number] : 6Acct:[id number] Age/Sex: 78 / FADM Date: 05/16/24 Loc: HO.ED Attending Dr: Ordering Physician: Nandini Dumont DO Date of Service: 05/16/24 Procedure(s): XR chest 1V Accession Number(s): [id number] cc: Nandini Dumont DO; Edwige Headley MD [...] 05/16/24 1321 DD/ 1250 TD/TT: 05/16/24 1255 Mains And Service Supervisor: [facility] External Provider IMG XR PROCEDURES Final Result * Lipid Panel, Standard (08/30/2023 10:36 AM EDT) Triglycerides 39 <150 mg/dL [facility] Comment:Desirable Triglyceri de: less than 150 mg/dLBorderline High Triglyceride 150-199 mg/dLHigh Triglyceride: 200-499 mg/dLVery High Triglyceride: greater than or equal to 5OO mg/dL Cholesterol 116 <200 mg/dL [facility] Comment:Desirable Cholestero l: less than 200 mg/dLBorderline High Cholesterol: 200-239 mg/dLHigh Cholesterol: greater than 239 mg/dL LDL Cholesterol Calculated 35 <100 mg/dL [facility] Comment:Desirable LDL: less than 100 mg/dLNear Optimal/Above Optimal LDL: 110- 129 mg/dLBorderline High LDL: 130-159 mg/dLHigh LDL: 160-189 mg/dLVery High LDL: greater than or equal to 190 mg/dL HDL Cholesterol 74 >40 mg/dL [facility] Comment:Desirable HDL: great er than 40 mg/dL Note: This HDL assay may give artificially low results in patients with liver disease. 08/30/2023 10:3 6 AM EDT 08/30/2023 10:41 AM EDT us Generic External Data Provider LAB BLOOD ORDERAB LES Final Result [facility] [address] [place] [address] [phone] * Albumin, Random Urine W/O Creatinine (08/21/2022 10:43 AM EDT) Albumin, Urine 1.8 See Note: mg/dL [facility] Comment: Reference Range: Reference Range Not established [facility] [employer] Comment: The ADA defines abnormalities in albumin [...] URINE ORDERABLES Final Re sult [facility] [address], [place] [address] [employer] [place] [employer] [address] [place] [address] from Last 3 Months or Most Recently Relevant to Health Maintenance [facility] STANDARD Care Teams Broacher Relationship Specialty Start Date End Date Edwige Headley MD [address] [place] [address] PCP - General Family Medicine 08/21/22
--- OUTSIDE RECORDS SUMMARY | 2024-07-17 18:23 | XMS_ITS | Encounter Summary ---
Author Organization [employer] Address [address] [facility] [address] 7[address] [place] [address] Care Team Providers Care General Foreman Name Role Phone Edwige Headley MD Primary Care Provider [phone] Reason for Visit * Reason Onset Date Comments Hospital Follow-up 05/25/2024 Encounter Details Date Type Department Care Team ([facility] st Contact Info) Description 05/25/2024 Telephone [facility] [address] [place] [address] Edwige Headley MD [address] [place] [address] Hospital Follow-up Social History Tobacco Use Types [...] from pt requesting a HDF appt. Hospital: [facility] Date of admission: 05/16/2024 Discharge date: 2024 Diagnosed: Discuss with pt. *Send message to [place] Clinical Care Coordinators documented in this encounter Plan of Treatment Upcoming Encounters Date Type Department Care Team (Late st Contact Info) Description 07/20/2024 10:45 AM EST Office Visit [facility] MED & PEDS [address] [place] [address] Nina Clemons MD [address] [place] [address] 08/24/2024 2:30 PM EDT Clinical Support [facility] MED & PEDS [address] [place] [address] Maria Guadalupe Rodríguez RN 505 [place] [address] documented as of this encounter Goals Goal [...] as of this encounter Care Teams General Foreman Relationship Specialty Start Date End Date Edwige Headley MD [address] [place] [address] PCP - General Family Medicine 08/21/22 documented as of this encounter
--- OUTSIDE RECORDS SUMMARY | 2024-07-17 18:23 | XMS_ITS | Encounter Summary ---
Author Organization [employer] [facility] Address [address] [facility] [address] 7t [place] [address] Care Team Providers Care Supersonic Engineer Name Role Phone Edwige Headley MD Primary Care Provider [phone] Reason for Visit * Reason Comments Med Refill Encounter Details Date Type Department Care Team (Late Contact Info) Description 12/04/2022 Refill [facility] MED & PEDS [address] [place] [address] Edwige Headley MD [address] [place] [address] Social History Tobacco Use Types Packs/Day Years [...] Upcoming Encounters Date Type Department Care Team ([facility] Contact Info) Description 07/20/2024 10:45 AM EST Office Visit [facility] MED & PEDS [address] [place] [address] Nina Clemons MD [address] [place] [address] 08/24/2024 2:30 PM EDT Clinical Support [facility] MED & PEDS [address] [place] [address] Maria Guadalupe Rodríguez, AC [address] [place], [place] [phone] documented as of this encounter Goals Goal [...] documented as of this encounter Care Teams Supersonic Engineer Relationship Specialty Start Date End Date Edwige Headley MD [address] [place] [address] PCP - General Family Medicine 08/21/22 documented as of this encounter
--- OUTSIDE RECORDS SUMMARY | 2024-07-17 18:23 | XMS_ITS | Encounter Summary ---
Author Organization [employer] Address [address] [facility] [address] 7t [place] [address] Care Team Providers Care Talent Specialist Name Role Phone Edwige Headley MD Primary Care Provider [phone] Reason for Visit * Reason Onset Date Comments Appointment Request 04/06/2024 Encounter Details Date Type Department Care Team ([facility] st Contact Info) Description 04/06/2024 Telephone [facility] [address] [place] [address] Edwige Headley MD [address] [place] [address] Appointment Request Social History Tobacco Use Types [...] somewhere else. Contac pt to r/s at [phone] documented in this encounter Plan of Treatment Upcoming Encounters Date Type Department Care Team (Late st Contact Info) Description 07/20/2024 10:45 AM EST Office Visit [facility] MED & PEDS [address] [place] [address] Nina Clemons MD [address] [place] [address] 08/24/2024 2:30 PM EDT Clinical Support [facility] MED & PEDS [address] [place] [address] Maria Guadalupe Rodríguez RN [address] [place] [address] documented as of this encounter Goals Goal [...] documented as of this encounter Care Teams Talent Specialist Relationship Specialty Start Date End Date Edwige Headley MD [address] [place] [address] PCP - General Family Medicine 08/21/22 documented as of this encounter
--- OUTSIDE RECORDS SUMMARY | 2024-07-17 18:23 | XMS_ITS | Encounter Summary ---
Author Organization [employer] Address [address] [facility] [address] 7[address] [place] [address] Care Team Providers Care Button Spindler Name Role Phone Edwige Headley MD Primary Care Provider [phone] Reason for Visit * Reason Onset Date Comments Appointment Request 04/28/2024 Encounter Details Date Type Department Care Team ([facility] st Contact Info) Description 04/28/2024 Telephone [facility] [address] [place] [address] Edwige Headley MD 505 [place] [address] Appointment Request Social History Tobacco Use Types [...] - 04/28/2024 2:22 PM EST Pt canceled SPECIAL EDUCATION CLASSROOM AIDE visit on 05/09 because will be out of town from 05/06 thru the holidays spending time with family . Pt would like to reschedule. documented in this encounter Plan of Treatment Upcoming Encounters Date Type Department Care Team (Late st Contact Info) Description 07/20/2024 10:45 AM EST Office Visit [facility] MED & PEDS [address] [place] [address] Nina Clemons MD 505 [place] [address] 08/24/2024 2:30 PM EDT Clinical Support [facility] MED & PEDS [address] [place] [address] Maria Guadalupe Rodríguez RN [address] [place] [address] documented as of this encounter Goals Goal [...] documented as of this encounter Care Teams Button Spindler Relationship Specialty Start Date End Date Edwige Headley MD [address] [place] [address] PCP - General Family Medicine 08/21/22 documented as of this encounter
--- OUTSIDE RECORDS SUMMARY | 2024-07-17 18:23 | XMS_ITS | Encounter Summary ---
Author Organization [employer] Address [address] [facility] 7t [place] [address] Care Team Providers Care Internet Network Specialist Name Role Phone Edwige Headley MD Primary Care Provider [phone] Encounter Details Date Type Department Care Team (Late Contact Info) Description 11/03/2022 Abstract [facility] [employer] [address] [place] [address] Edwige Headley MD [address] [place], [place] [phone] Social History Tobacco Use Types Packs/Day Years [...] Encounters Date Type Department Care Team (Late Contact Info) Description 07/20/2024 10:45 AM EST Office Visit [facility] CH[facility] MED & PEDS [address] [place], [place] [phone] Nina Clemons MD 505 [place] [address] 08/24/2024 2:30 PM EDT Clinical Support [facility] MED & PEDS [address] [place] [address] Maria Guadalupe Rodríguez, RN [address] [place], [place] [phone] documented as of this encounter Goals Goal [...] documented as of this encounter Care Teams Internet Network Specialist Relationship Specialty Start Date End Date Edwige Headley MD [address] [place] [address] PCP - General Family Medicine 08/21/22 documented as of this encounter
--- OUTSIDE RECORDS SUMMARY | 2024-07-17 18:23 | XMS_ITS | Encounter Summary ---
Author Organization [employer] Address [address] [facility] [address] 7[address] [place] [address] Care Team Providers Care Motor Builder Winder Name Role Phone Edwige Headley MD Primary Care Provider Reason for Visit * Reason Comments Med Refill Encounter Details Date Type Department Care Team ([facility] st Contact Info) Description 08/13/2023 Refill [facility] MED & PEDS [address] [place], [place] [phone] Edwige Headley MD 505 [place] [address] Social History Tobacco Use Types Packs/Day Years [...] 10:45 AM EST Office Visit [facility] MED & PEDS [address] [place] [address] Nina Clemons MD 505 [place] [address] 08/24/2024 2:30 PM EDT Clinical Support [facility] MED & PEDS [address] [place] [address] Maria Guadalupe Rodríguez RN 505 [place] [address] documented as of this encounter Goals Goal [...] documented as of this encounter Care Teams Motor Builder Winder Relationship Specialty Start Date End Date Edwige Headley MD [address] [place] [address] PCP - General Family Medicine 08/21/22 documented as of this encounter
--- OUTSIDE RECORDS SUMMARY | 2024-07-17 18:23 | XMS_ITS | Encounter Summary ---
Author Organization [employer] Address [address] [facility] 7 [place] [address] Care Team Providers Care Caterer'S Aide Name Role Phone Edwige Headley MD Primary Care Provider [phone] Reason for Visit * Reason Comments Annual Exam Encounter Details Date Type Department Care Team ([facility] st Contact Info) Description 06/19/2024 2:45 PM EST Office Visit [facility] MED & PEDS [address] [place] [address] Radha Renee MD [address] [place] [address] Fibromyalgia (Primary Dx); Type 2 diabetes mellitus [...] with hyperglycemia, without long-term current useof insulin ([facility]) ??? Urinary incontinence ??? Moderate persistent asthma ??? Alzheimer's dementia (CMS/[facility]) ??? Chronic diastolic heart failure (CMS/HCC) ??? Vertigo ??? Coronary artery disease of [place] heart with stable angina pectoris (CMS/[facility]) ??? CKD (chronic kidney disease), stage II ??? Gastroesophageal reflux disease ??? Type 2 diabetes mellitus with hyperglycemia, without long-term current use of insulin (CMS/[facility]) ??? Hypertension ??? Headache, common [...] each 0 ??? Lancets (OneTouch Delica Plus [id number]) misc 1 Units in the morning. Please [...] hyperglycemia, without long-term current use of insulin ([facility]) Comments: Stable No change Continue [...] Description 07/20/2024 10:45 AM EST Office Visit [facility] MED & PEDS [address] [place] [address] Nina Clemons MD [address] [place] [address] 08/24/2024 2:30 PM EDT Clinical Support [facility] MED & PEDS [address] [place] [address] Maria Guadalupe Rodríguez RN 505 [place] [address] Scheduled Orders Name Type Priority Associated Diagnoses [...] AM EST) Hepatitis C Antibody Nonreactive Nonreactive [facility] Comment:Antibodies to HCV no t detected; does not exclude early acuteHCV infection. Blood Venous blood specimen / Unknown 07/07/2024 9:23 AM EST 07/07/2024 1:55 PM EST us Radha Renee MD LAB BLOOD ORDERABLES Final Result [facility] [address] [place] [phone] * POCT glucose manually resulted (06/19/2024 2:34 PM EST) Glucose Blood, POC 113 60 - 200 mg/dL QC Media Lot # Comment:[id number] Lot# Expiration Date Comment:08/22/2024 Blood Capillary blood specimen / Unknown 06/19/2024 2:34 PM EST us Radha Renee MD POINT OF CARE TEST ENTER/ED IT ORDERABLES Final Result documented in this encounter Visit Diagnoses Diagnosis Fibromyalgia- Primary Unspecified myalgia and myositis Type 2 diabetes mellitus with hyperglycemia, without long-term current use of insulin ([facility]) Chronic diastolic heart failure ([facility]/HCC) Chronic diastolic heart failure Chronic obstructive pulmonary disease, unspecified COPD type ([facility]/HCC) documented in this encounter Additional Health Concerns Assessment Noted Time PHQ-9 Depression Total Score: 10 10/28/ 024 12:52 PM EDT documented as of this encounter Care Teams Caterer'S Aide Relationship Specialty Start Date End Date Edwige Headley MD [address] [place] [address] PCP - General Family Medicine 08/21/22 documented as of this encounter
--- OUTSIDE RECORDS SUMMARY | 2024-07-17 18:23 | XMS_ITS | Encounter Summary ---
Author Organization [employer] Address [address] [facility] [address] 7[address] [place] [address] Care Team Providers Care Scouts Name Role Phone Edwige Headley MD Primary Care Provider [phone] Encounter Details Date Type Department Care Team ([facility] st Contact Info) Description 10/22/2022 Telephone [facility] MED [facility] PEDS [address] [place], [place] [phone] Edwige Headley MD [address] [place] [address] Social History Tobacco Use Types Packs/Day Years [...] a call in regards to message above. (Pashto speaker) * Telephone Encounter - Inez Martinez - 10/22/2022 3:31 PM EDT TC from pt requesting help to schedule her gastro appt . Please call to clarify . documented in this encounter Plan of Treatment Upcoming Encounters Date Type Department Care Team (Late st Contact Info) Description 07/20/2024 10:45 AM EST Office Visit [facility] MED & PEDS [address] [place] [address] Nina Clemons MD [address] [place] [address] 08/24/2024 2:30 PM EDT Clinical Support [facility] MED & PEDS [address] [place] [address] Maria Guadalupe Rodríguez RN [address] [place], [place] [phone] documented as of this encounter Goals Goal [...] documented as of this encounter Care Teams Scouts Relationship Specialty Start Date End Date Edwige Headley MD [address] [place] [address] PCP - General Family Medicine 08/21/22 documented as of this encounter
--- OUTSIDE RECORDS SUMMARY | 2024-07-17 18:23 | XMS_ITS | Data Portability ---
Author Organization [employer] [facility] Address [address] [place] [phone] Care Team Providers Care Entrepreneur Name Role Phone HIM [facility] OTHER [facility] OTHER Assessment Encounter Date Assessment Date Assessment LastModified by Organization Details LastModified Time 10/13/2023 10/13/2023 I have reviewed and agree with the assessment and plan as documented by the production supervisor. I provided real-time medical direction for this [...] one 1 % topical cream 2023 024 [facility], [address] [place] [address], [phone], 14:48:38 Patient TargetsNo targets recorded. Patient InstructionsNo [...] Not Available Not Available No t Available Shop 9 SevenTouch Ultra Test strips TEST BLOOD SUGAR EVERY [...] Updated DateTime 4 99 % 99 % 77173.6 16 g 16 /min 98.1 [degF] 86 /min 138 mm[Hg] 90 mm[Hg] Not Available [employer] - production 4 18:14:31 Social History None recorded. Functional Status None recorded. Mental Status None recorded. Family History Nothing Reported. Medical History No medical history recorded. Gynecological HistoryNo gynecological history recorded. Obstetrics History GPAL:G 0 P 0 0 0 0 Past Encounters Encounter ID Performer Location Encounter Start Date Encounter Closed Date Diagnosis/Indication Diagnosis SNOMED-CT Code Diagnosis ICD10 Code Diagnosis Note [id number] Rita Haile MD Main - [facility] [address] [place] [address] 10/13/2023 18:14:24 10/14/2023 10:34:19 Contact dermatitis 00430235 L25.9 Health Concerns Section Related Observation LastModified [...] OR AFTER 2022 - DUAL ELIGIBLE - [employer] OPTIONS AND ONE CARE (MEDICARE REPLACEMENT/ADV ANTAGE - HMO) Ed Hoffmann [id number] Ed Hoffmann Notes Date Note Type Note [...] .................... .................... .................... .................... .................... .................... . Supervisor Coke Handling Note From Michael Nielson: Pt co rash/redness [...] . Disposition: Fulfilled Rita Haile MD [address] [facility], [place], [address], [employer] - PROSimity 10/13/2023 19:19:35 OBGyn Episode No OBEpisode recorded.
--- OUTSIDE RECORDS SUMMARY | 2024-07-17 18:23 | XMS_ITS | Encounter Summary ---
Author Organization [employer] Address [address] [facility] [address] [place] [address] Care Team Providers Care Observer Gravity Prospecting Name Role Phone Edwige Headley MD Primary Care Provider [phone] Reason for Visit * Reason Comments controlled substance treatment Encounter Details Date Type Department Care Team ([facility] Contact Info) Description 06/20/2024 1:00 PM EST Clinical Support [facility]C MED & PEDS [address] [place] [address] Maria Guadalupe Rodríguez, RN [address] [place] [address] Fibromyalgia Social History Tobacco Use Types Packs/Day [...] t he electric, gas, oil or water [employer] threatened to shut off services in your [...] RN - 06/20/2024 1:00 PM EST S: CATERER HELPER initial [place]. VINCENT [place] interpreting. Prescribed Tramadol 50mg PO q12h PRN. States has been taking as prescribed. Denies ETOH, nicotine/illicit drugs use. Currently rates pain a 9/10 and states medication is 40% effective at alleviating pain. Current pain sites are shoulders, R elbow, knees,L thigh. Last PCP f/u 02/25/24. No questions/ concerns at this time. CATERER HELPER Agreement initiated today. O: EGG AND SPICE MIXER verified today. Rx last filled 04/18/24. Pill count not performed as patient does not have any pills left, 0 expected. BPI form completed today. Pain severity score of (9), activity interference score of (4). Utox performed, negative for all tested substances, as expected. TONY 7 screening done, total score 4, mild anxiety. Opioid Risk Tool performed, low risk. A: CATERER HELPER Agreement Initiation: Opioid dependence related to chronic pain. P: Patient to continue taking medication only as prescribed; Next CATERER HELPER RV appointment scheduled for 08/24/24 @ 2:30pm. F/U sooner PRN. Patient verbalized understanding and agreed to plan. documented in this encounter Plan of Treatment Upcoming Encounters Date Type Department Care Team (Late st Contact Info) Description 07/20/2024 10:45 AM EST Office Visit [facility] MED & PEDS 505 [place] [address] Nina Clemons MD 505 [facility] [place] [address] 08/24/2024 2:30 PM EDT Clinical Support [facility] CHC MED & PEDS [address] [place] [address] Maria Guadalupe Rodríguez, RN [address] [place] documented as of this encounter Goals [...] MTD, BUPG, TCA, MDMA, PCP, PPX. Lot# [id number] Exp: 04-22-25 Edwige Headley MD POINT OF CARE TEST ENTER/EDIT ORDERABLES Final Result documented in this encounter Visit Diagnoses Diagnosis Fibromyalgia Unspecified myalgia and myositis documented in this encounter Additional Health Concerns Assessment Noted Time PHQ-9 Depression Total Score: 10 024 12:52 PM EDT documented as of this encounter Care Teams Observer Gravity Prospecting Relationship Specialty Start Date End Date Edwige Headley MD [address] [place] [address] PCP - General Family Medicine 08/21/22 documented as of this encounter
--- OUTSIDE RECORDS SUMMARY | 2024-07-17 18:23 | XMS_ITS | Encounter Summary ---
Author Organization [employer] Address [address] [facility] [address] [place] [address] Care Team Providers Care Riffler Tender Name Role Phone Edwige Headley MD Primary Care Provider [phone] Encounter Details Date Type Department Care Team [...] Description 07/20/2024 10:45 AM EST Office Visit [facility] MED & PEDS [address] [place] [address] Nina Clemons MD [address] [place], [place] 08/24/2024 2:30 PM EDT Clinical Support [facility] MED & PEDS [address] [place], [place] [phone] Maria Guadalupe Rodríguez RN [address] [place], [place] [phone] documented as of this encounter Goals Goal [...] documented as of this encounter Care Teams Riffler Tender Relationship Specialty Start Date End Date Edwige Headley MD [address] [address] PCP - General Family Medicine 08/21/22 documented as of this encounter
--- OUTSIDE RECORDS SUMMARY | 2024-07-17 18:24 | XMS_ITS | Encounter Summary ---
Author Organization [employer] Address [address] [place] [address] Care Team Providers Care Marine Insulator Name Role Phone Edwige Headley MD Primary Care Provider [phone] Reason for Visit * Reason Comments Med Refill Encounter Details Date Type Department Care Team ([facility] st Contact Info) Description 07/06/2024 Refill [facility] MED[facility]INE [address] [place], [place] [phone] Edwige Headley MD [address] [place] [address] Alzheimer's disease, unspecified (CODE) (CMS/[facility]) Social History Tobacco Use Types Packs/Day Years [...] Description 07/20/2024 10:45 AM EST Office Visit [facility] MED & PEDS [address] [place] [address] Nina Clemons MD [address] [place] [address] 08/24/2024 2:30 PM EDT Clinical Support [facility] MED & PEDS [address] [place] [address] Maria Guadalupe Rodríguez RN [address] [place], [place] [phone] documented as of this encounter Goals Goal Patient Goal Type Associated Problems Recent Progress Patient-Stated? Author Use the inhalers as prescribed by provider; Flovent HFA scheduled and albuterol as needed General No Marcel Garcia, PharmD Take your medication every day Lifestyle No Marcel Garcia PharmD documented as of this encounter Visit Diagnoses Diagnosis Alzheimer's disease, unspecified (CODE) (CMS/[facility]) documented in this encounter Additional Health Concerns Assessment Noted Time PHQ-9 Depression Total Score: 10 024 12:52 PM EDT documented as of this encounter Care Teams Marine Insulator Relationship Specialty Start Date End Date Edwige Headley MD [address] [place] [address] PCP - General Family Medicine 08/21/22 documented as of this encounter
--- OUTSIDE RECORDS SUMMARY | 2024-07-17 18:24 | XMS_ITS | Encounter Summary ---
Author Organization [email or web address] Address [address] 7t [place] [address] Care Team Providers Care Machine Tool Electrician Name Role Phone Edwige Headley MD Primary Care Provider [phone] Reason for Visit * Reason Comments Med Refill Encounter Details Date Type Department Care Team ([facility] st Contact Info) Description 10/16/2023 Refill [facility] CHC MED & PEDS [address] [place], [place] [phone] Edwige Headley MD [address] [place] [address] Social History Tobacco Use Types Packs/Day Years Used Date Smoking Tobacco: Never Depression Answer Date Recorded Patient Health Questionnaire-9 Score 24 08/21/2022 Housing Stability Answer Date Recorded What is your housing situation today? I have mercedes imreles 03/02/[address] you li [...] Description 07/20/2024 10:45 AM EST Office Visit [facility] MED & PEDS [address] [place] [address] Nina Clemons MD [address] [place] [address] 08/24/2024 2:30 PM EDT Clinical Support [facility] [address] [place] [address] Maria Guadalupe Rodríguez RN 505 [place] [address] documented as of this encounter Goals Goal [...] documented as of this encounter Care Teams Machine Tool Electrician Relationship Specialty Start Date End Date Edwige Headley MD [address] [place] [address] PCP - General Family Medicine 08/21/22 documented as of this encounter
--- OUTSIDE RECORDS SUMMARY | 2024-07-17 18:24 | XMS_ITS | Encounter Summary ---
Author Organization [employer] Address [address] [place] [address] Care Team Providers Care Bowling Pin Setters Installer Name Role Phone Edwige Headley MD Primary Care Provider [phone] Reason for Visit * Reason Comments Med Refill Encounter Details Date Type Department Care Team ([facility] st Contact Info) Description 06/26/2024 Refill [facility] CH[facility] MED & PEDS [address] [place], [place] [phone] Edwige Headley MD 505 [place] [address] Social History Tobacco Use Types Packs/Day Years [...] 10:45 AM EST Office Visit [facility] MED & PEDS [address] [place] [address] Nina Clemons MD 505 [place] [address] 08/24/2024 2:30 PM EDT Clinical Support [facility] MED & PEDS [address] [place] [address] Maria Guadalupe Rodríguez, RN 505 [place] [address] documented as of this encounter Goals Goal [...] documented as of this encounter Care Teams Bowling Pin Setters Installer Relationship Specialty Start Date End Date Edwige Headley MD [address] [place] [address] PCP - General Family Medicine 08/21/22 documented as of this encounter
--- OUTSIDE RECORDS SUMMARY | 2024-07-17 18:24 | XMS_ITS | Encounter Summary ---
Author Organization [employer] Address [address] [place] [address] Care Team Providers Care Montessori Teacher Name Role Phone Edwige Headley MD Primary Care Provider Reason for Visit * Reason Comments Med Refill Encounter Details Date Type Department Care Team ([facility] st Contact Info) Description 07/05/2024 Refill [facility] CHC MED & PEDS [address] [place], [place] [phone] Edwige Headley MD [address] [place] [address] Social History Tobacco Use Types Packs/Day Years [...] 07/20/2024 10:45 AM EST Office Visit [facility] MED & PEDS [address] [place] [address] Nina Clemons MD [address] [place] [address] 08/24/2024 2:30 PM EDT Clinical Support [facility] MED & PEDS [address] [place] [address] Maria Guadalupe Rodríguez, RN 505 [place] [address] documented as of this encounter Goals Goal [...] documented as of this encounter Care Teams Montessori Teacher Relationship Specialty Start Date End Date Edwige Headley MD [address] [place] [address] PCP - General Family Medicine 08/21/22 documented as of this encounter
--- OUTSIDE RECORDS SUMMARY | 2024-07-17 18:24 | XMS_ITS | Encounter Summary ---
Author Organization [employer] Address [address] [place] [address] Care Team Providers Care Executive Office Manager Name Role Phone Edwige Headley MD Primary Care Provider [phone] Reason for Visit * Reason Onset Date Comments Lab Orders 07/06/2024 Encounter Details Date Type Department Care Team ([facility] st Contact Info) Description 07/06/2024 Telephone [facility] [address] [place] [address] Edwige Headley MD 505 [place] [address] Lab Orders Social History Tobacco Use Types [...] TC x 3 placed to pt via [employer] rn paralegal (Ace ID#[id number]) to inform a tuberculosis lab order was placed by the provider for her to have done at her convenience. Pt verbalized understanding and deniesquestions or concerns at this time. * Telephone Encounter - Mau Overton - 07/06/2024 4:20 PM EST Tc from pt returning call. Pt needs an Biomedical Photographer. * Telephone Encounter - Zoë Dorantes RN - 07/06/2024 3:33 PM EST TC placed to pt via [employer] rn paralegal (ID#[id number]) to inform a tuberculosis lab order was [...] Description 07/20/2024 10:45 AM EST Office Visit [facility] MED [facility] [place] [facility] [place] [address] Nina Clemons MD 505 [place] [address] 08/24/2024 2:30 PM EDT Clinical Support [facility] MED [facility] [address] [facility] [place] [address] Maria Guadalupe Rodríguez RN 505 [place] [address] documented as of this encounter Goals Goal [...] Results * T-SPOT??.TB (07/07/2024 9:23 AM EST) [facility] T Spot TB Negative Negative [facility] Comment:A negative test resu lt [...] as aquantitative test. TS PANEL A 0 [facility] TS PANEL B 0 [facility] Negative Control Passed [facility] Positive Control Passed [facility] Comment:For additional infor nika, please refer tohttp://education.[employer]twine/faq/CMI769(This link is being provided for informational/educational purposes only.)THIS TEST WAS PERFORMED AT:[employer] [id number] [place] [address]RKEJIOZVIRGINIA DAN MD,PHD 07/07/2024 9:23 AM EST 07/07/2024 1:55 PM EST us Edwige Headley MD LAB BLOOD ORDERABLES Final Re sult [facility] [address] [place] [address] [phone] documented in this encounter Visit Diagnoses Diagnosis Encounter for screening for respiratory tuberculosis documented in this encounter Additional Health Concerns Assessment Noted Time PHQ-9 Depression Total Score: 10 024 12:52 PM EDT documented as of this encounter Care Teams Executive Office Manager Relationship Specialty Start Date End Date Edwige Headley MD [address] [place] [address] PCP - General Family Medicine 08/21/22 documented as of this encounter
--- OUTSIDE RECORDS SUMMARY | 2024-07-17 18:24 | XMS_ITS | Encounter Summary ---
Author Organization [employer] Address [address] 7t [place] [address] Care Team Providers Care Mental Health Program Specialist Name Role Phone Edwige Headley MD Primary Care Provider [phone] Reason for Visit * Reason Onset Date Comments Med Refill 06/20/2024 Encounter Details Date Type Department Care Team ([facility] st Contact Info) Description 06/20/2024 Refill [facility] MED & PEDS [address] [place] [address] Maria Guadalupe Rodríguez, RN 505 [place] [address] Fibromyalgia Social History Tobacco Use Types Packs/Day [...] 10:45 AM EST Office Visit [facility] MED & PEDS [address] [place] [address] Nina Clemons MD 505 [place] [address] 08/24/2024 2:30 PM EDT Clinical Support [facility] MED & PEDS [address] [place] [address] Maria Guadalupe Rodríguez, RN [address] [place] [address] documented as of this encounter Goals Goal [...] documented as of this encounter Care Teams Mental Health Program Specialist Relationship Specialty Start Date End Date Edwige Headley MD [address] [place] [address] PCP - General Family Medicine 08/21/22 documented as of this encounter
--- OUTSIDE RECORDS SUMMARY | 2024-07-17 18:24 | XMS_ITS | Encounter Summary ---
Author Organization [employer] Address [address]t [place] [address] Care Team Providers Care Air Moving Technician Name Role Phone Edwige Headley MD Primary Care Provider [phone] Encounter Details Date Type Department Care Team [...] Description 07/20/2024 10:45 AM EST Office Visit [facility] MED & PEDS [address] [place] [address] Nina Clemons MD [address] [place], [place] 08/24/2024 2:30 PM EDT Clinical Support [facility] MED & PEDS [address] [place], [place] [phone] Maria Guadalupe Rodríguez RN [address] [place], [place] [phone] documented as of this encounter Goals Goal [...] documented as of this encounter Care Teams Air Moving Technician Relationship Specialty Start Date End Date Edwige Headley MD [address] [place] [address] PCP - General Family Medicine 08/21/22 documented as of this encounter
== END 2024-07-17 16:11 | disposition home or self-care (01) ==
PROVIDERS: PCP Family Medicine; Visit Provider Internal Medicine
DX: R19.8 Other specified symptoms and signs involving the digestive system and abdomen (principal); K64.9 Unspecified hemorrhoids
CPT/HCPCS: 99214

== ENCOUNTER → 2024-07-17 15:33 | Outpatient (BNVA) | payer OTHER, SELFPAY | PROVIDERS: PCP Family Medicine; Visit Provider Internal Medicine | DX: R19.8 Other specified symptoms and signs involving the digestive system and abdomen (principal); K64.9 Unspecified hemorrhoids; Z90.49 Acquired absence of other specified parts of digestive tract | CPT/HCPCS: 99212 ==

== ENCOUNTER 2024-07-18 10:12 | Outpatient (REF) | payer OTHER, SELFPAY ==
--- OUTSIDE RECORDS SUMMARY | 2024-07-18 12:10 | XMS_ITS | Encounter Summary ---
Author Organization [facility] Address [address]t [place] [address] Care Team Providers Care Maintenance Shop Laborer Name Role Phone Edwige Headley MD Primary Care Provider [phone] Reason for Visit * Reason Comments Med Refill Encounter Details Date Type Department Care Team (Late Contact Info) Description 12/04/2022 Refill [facility] CH[facility] MED & PEDS [address] [place] [address] Edwige Headley MD 505 [place] [address] Social History Tobacco Use Types Packs/Day Years [...] Upcoming Encounters Date Type Department Care Team ([facility] Contact Info) Description 07/20/2024 10:45 AM EST Office Visit [facility] MED & PEDS 505 [place] [address] Nina Clemons MD 505 [place] [address] 08/24/2024 2:30 PM EDT Clinical Support [facility] MED & PEDS 505 [place] [address] Maria Guadalupe Rodríguez, AC [address] [place], [place] [phone] documented as of this encounter Goals Goal [...] documented as of this encounter Care Teams Maintenance Shop Laborer Relationship Specialty Start Date End Date Edwige Headley MD [address] [place] [address] PCP - General Family Medicine 08/21/22 documented as of this encounter
--- OUTSIDE RECORDS SUMMARY | 2024-07-18 12:10 | XMS_ITS | Encounter Summary ---
Author Organization [employer] Address [address] [place] [address] Care Team Providers Care Foxing Painter Name Role Phone Edwige Headley MD Primary Care Provider [phone] Reason for Visit * Reason Onset Date Comments Lab Orders 07/06/2024 Encounter Details Date Type Department Care Team ([facility] st Contact Info) Description 07/06/2024 Telephone [facility] MEDICINE [address] [place] [address] Edwige Headley MD [address] [place] [address] Lab Orders Social History Tobacco Use Types [...] TC x 3 placed to pt via [employer] asl interpreter (Ace ID#[id number]) to inform a tuberculosis lab order was placed by the provider for her to have done at her convenience. Pt verbalized understanding and deniesquestions or concerns at this time. * Telephone Encounter - Mau Overton - 07/06/2024 4:20 PM EST Tc from pt returning call. Pt needs an Psychiatric Np. * Telephone Encounter - Zoë Dorantes RN - 07/06/2024 3:33 PM EST TC placed to pt via [employer] asl interpreter (ID#[id number]) to inform a tuberculosis lab order was [...] Description 07/20/2024 10:45 AM EST Office Visit [facility] MED & PEDS [address] [facility] [place] [address] Nina Clemons MD 505 [place] [address] 08/24/2024 2:30 PM EDT Clinical Support [facility] MED & PEDS [address] [facility] [place] [address] Maria Guadalupe Rodríguez RN 505 [place] [address] documented as of this encounter Goals Goal [...] Results * T-SPOT??.TB (07/07/2024 9:23 AM EST) [facility] T Spot TB Negative Negative [facility] Comment:A negative test resu lt does [...] as aquantitative test. TS PANEL A 0 [facility] TS PANEL B 0 [facility] Negative Control Passed [facility] Positive Control Passed [facility] Comment:For additional infor nika, please refer tohttp://education.[employer]/faq/OZC050(This link is being provided for informational/educational purposes only.)THIS TEST WAS PERFORMED AT:[employer] [id number] [place] [address]SIVTRCCVIRGINIA DAN MD,PHD 07/07/2024 9:23 AM EST 07/07/2024 1:55 PM EST us Edwige Headley MD LAB BLOOD ORDERABLES Final Re sult [facility] [address] [place] [address] [phone] documented in this encounter Visit Diagnoses Diagnosis Encounter for screening for respiratory tuberculosis documented in this encounter Additional Health Concerns Assessment Noted Time PHQ-9 Depression Total Score: 10 024 12:52 PM EDT documented as of this encounter Care Teams Foxing Painter Relationship Specialty Start Date End Date Edwige Headley MD [address] [place] [address] PCP - General Family Medicine 08/21/22 documented as of this encounter
--- OUTSIDE RECORDS SUMMARY | 2024-07-18 12:10 | XMS_ITS | Encounter Summary ---
Author Organization [employer] Address [address] 7t [place] [address] Care Team Providers Care Director Of Marketing Analytics Name Role Phone Edwige Headley MD Primary Care Provider [phone] Reason for Visit * Reason Onset Date Comments Hospital Follow-up 05/25/2024 Encounter Details Date Type Department Care Team ([facility] st Contact Info) Description 05/25/2024 Telephone [facility] [address] [place] [address] Edwige Headley MD [address] [place] [address] Hospital Follow-up Social History Tobacco Use Types [...] from pt requesting a HDF appt. Hospital: [facility] Date of admission: 05/16/2024 Discharge date: 2024 Diagnosed: Discuss with pt. *Send message to [facility] Clinical Care Coordinators documented in this encounter Plan of Treatment Upcoming Encounters Date Type Department Care Team (Late st Contact Info) Description 07/20/2024 10:45 AM EST Office Visit [facility] MED & PEDS [address] [place] [address] Nina Clemons MD [address] [place] [address] 08/24/2024 2:30 PM EDT Clinical Support [facility] MED & PEDS [address] [place] [address] Maria Guadalupe Rodríguez RN [address] [place] [address] documented as of this encounter Goals Goal [...] documented as of this encounter Care Teams Director Of Marketing Analytics Relationship Specialty Start Date End Date Edwige Headley MD [address] [place] [address] PCP - General Family Medicine 08/21/22 documented as of this encounter
--- OUTSIDE RECORDS SUMMARY | 2024-07-18 12:10 | XMS_ITS | Encounter Summary ---
Author Organization [employer] Address [address] 7t [place] [address] Care Team Providers Care Hotel And Dining Room Cashier Name Role Phone Edwige Headley MD Primary Care Provider [phone] Encounter Details Date Type Department Care Team [...] Office Visit [facility] MED & PEDS [address] [place] [address] Nina Clemons MD [address] [place], [place] 08/24/2024 2:30 PM EDT Clinical Support [facility] MED & PEDS [address] [place], [place] [phone] Maria Guadalupe Rodríguez RN [address] [place], [place] [phone] documented as of this encounter Goals Goal [...] documented as of this encounter Care Teams Hotel And Dining Room Cashier Relationship Specialty Start Date End Date Edwige Headley MD [address] [place] [address] PCP - General Family Medicine 08/21/22 documented as of this encounter
--- OUTSIDE RECORDS SUMMARY | 2024-07-18 12:10 | XMS_ITS | Encounter Summary ---
Author Organization [employer] Address [address] 7[address] [place] [address] Care Team Providers Care Sterile Proc Tech Name Role Phone Edwige Headley MD Primary Care Provider [phone] Reason for Visit * Reason Onset Date Comments Nurse Triage 07/17/2024 Encounter Details Date Type Department Care Team ([facility] st Contact Info) Description 07/17/2024 Telephone [facility] MEDICINE [address] [place] [address] Edwige Headley MD [address] [place] [address] Nurse Triage Social History Tobacco Use Types [...] Center 07/20/2024 10:45 AM Nina Clemons MD [facility] 08/24/2024 2:30 PM Maria Guadalupe Rodríguez RN [facility] Insurance verified as active per Real Time Eligibility in [facility]. Video visit offer not recorded Positive [...] RN - 07/17/2024 3:55 PM EST No machine rope maker needed as this mortgage underwriter speaks Estonian. [facility] via [employer] Help Desk Agent to triage below as this mortgage underwriter is remote . No answer, LVM to return call to [facility] line [phone] * Telephone Encounter - Michelle Meeks - 07/17/2024 3:07 PM EST Symptoms: Leg Pain - Not From Injury, Hand or Wrist Pain - Not From Injury Outcome: Schedule an urgent appointment (within 1 hour) or talk to a nurse or provider soon Reason: Trouble walking The caller accepted this outcome. [phone] danish documented in this encounter Plan of Treatment Upcoming Encounters Date Type Department Care Team (Late st Contact Info) Description 07/20/2024 10:45 AM EST Office Visit [facility] MED & PEDS [address] [place] [address] Nina Clemons MD [address] [place] [address] 08/24/2024 2:30 PM EDT Clinical Support [facility] PEDS [address] [place] [address] Maria Guadalupe Rodríguez RN [address] [place] [address] documented as of this encounter Goals Goal [...] documented as of this encounter Care Teams Sterile Proc Tech Relationship Specialty Start Date End Date Edwige Headley MD [address] [place] [address], [place] [address] PCP - General Family Medicine 08/21/22 documented as of this encounter
--- OUTSIDE RECORDS SUMMARY | 2024-07-18 12:10 | XMS_ITS | Encounter Summary ---
Author Organization [employer] Address [address] [place] [address] Care Team Providers Care Crackling Press Operator Name Role Phone Edwige Headley MD Primary Care Provider [phone] Reason for Visit * Reason Onset Date Comments Appointment Request 04/28/2024 Encounter Details Date Type Department Care Team ([facility] st Contact Info) Description 04/28/2024 Telephone [facility] MEDICINE [address] [place] [address] Edwige Headley MD [address] [place] [address] Appointment Request Social History Tobacco Use Types [...] - 04/28/2024 2:22 PM EST Pt canceled CAM SPECIALIST visit on 05/09 because will be out of town from 05/06 thru the holidays spending time with family . Pt would like to reschedule. documented in this encounter Plan of Treatment Upcoming Encounters Date Type Department Care Team (Late st Contact Info) Description 07/20/2024 10:45 AM EST Office Visit [facility] MED & PEDS [address] [place] [address] Nina Clemons MD [address] [place] [address] 08/24/2024 2:30 PM EDT Clinical Support [facility] MED & PEDS [address] [place] [address] Maria Guadalupe Rodríguez RN 505 [place] [address] documented as of this encounter Goals Goal [...] documented as of this encounter Care Teams Crackling Press Operator Relationship Specialty Start Date End Date Edwige Headley MD [address] [place] [address] PCP - General Family Medicine 08/21/22 documented as of this encounter
--- OUTSIDE RECORDS SUMMARY | 2024-07-18 12:10 | XMS_ITS | Clinical Summary ---
Author Organization [employer] Address [address] [place] [address] Care Team Providers Care Adult Crossing Guard Name Role Phone Edwige Headley MD Primary Care Provider [phone] Allergies Active Allergy Reactions Criticality Noted Date [...] each 023 Active Lancets (OneTouch Delica Plus [id number]) misc 1 Units in the morning. Please [...] swallow test came back normal. Referred to protohistorian Assessment & Plan (07/20/2023 9:51 PM EST): [...] be prescribed steroids. Recommended patient to call Heavy Duty Press Operator to schedule an appointment to get [...] Center 10/18/2023 3:30 PM Edwige Headley MD [facility] Assessment & Plan (03/19/2023 3:58 PM [...] Coping skills for Anxiety c. Contact this senior mortgage underwriter for support as needed Encounters Date Type Department Care Team Description 07/17/2024 Telephone [facility] MEDICINE [address] [place] [phone] Edwige Headley MD Nurse Triage 07/06/2024 Refill [facility] MEDICINE [address] [place] [phone] Edwige Headley MD Alzheimer's disease, unspecified (CODE) ([facility]) 07/06/[address] [address] Edwige Headley MD Lab Orders 07/05/2024 Refill [facility] [address] [place] [address] Edwige Headley MD 06/26/2024 Refill [facility] [address] [place] [address] Edwige Headley MD 06/20/2024 1:00 PM EST Clinical Support [facility] [address] [place] [address] Maria Guadalupe Rodríguez RN Fibromyalgia 06/20/2024 Travel 06/20/2024 Refill [facility] [address] [place] [address] Maria Guadalupe Rodríguez RN Fibromyalgia 06/19/2024 2:45 PM EST Office Visit [facility] [address] [place] [address] Radha Renee MD Fibromyalgia (Primary Dx); Type 2 diabetes mellitus with hyperglycemia, without long-term current use of insulin ([facility]); Chronic diastolic heart failure ([facility]); Chronic obstructive pulmonary disease, unspecified COPD type ([facility]) 06/19/2024 Travel 06/13/2024 Refill [facility] [address] [place] [address] Edwige Headley MD Fibromyalgia 05/30/2024 1:00 PM EST Office Visit [facility] [address] [place] [address] Radha Renee MD Chronic obstructive pulmonary disease, unspecified COPD type ([facility]/HCC) (Primary Dx); Raynaud's phenomenon without gangrene; Other fatigue; Type 2 diabetes mellitus with hyperglycemia, without long-term current use of insulin ([facility]); Primary hypertension 05/30/2024 Travel 05/25/2024 Patient Outreach [facility] [address] [place] [address] Edwige Headley MD Transition Of Care (Tcm) (HDF- scheduled and SDOH screening completed on 10/29/2023) 05/25/2024 Telephone [facility] MEDICINE [address] [place] [phone] Edwige Headley MD Hospital Follow-up 05/24/2024 Telephone [facility] WALK-[facility] CENTER [address] [place] [phone] Mary Santiago MD 05/16/2024 Orders Only [facility] External Provider, [facility] 05/16/2024 Telephone [facility] [address] [place] [phone] Brody Carter MD 05/10/2024 Refill [facility] [address] [place], [place] [phone] Edwige Headley MD 04/28/2024 Telephone [facility] MEDICINE [address] [place] [phone] Edwige Headley MD Appointment Request 04/27/2024 Refill [facility] [address] [place] [phone] Edwige Headley MD from Last 3 Months [...] [facility] [address] [place] [address] Nina Clemons MD [address] [place] [address] 08/24/2024 2:30 PM EDT Clinical Support [facility] [address] [facility] [place] [address] Maria Guadalupe Rodríguez RN [address] [place] [address] Health Maintenance Due Date Last Done Comments [...] and albuterol as needed General No Marcel Garcai PharmD Take your medication every day Lifestyle [...] Results * T-SPOT??.TB (07/07/2024 9:23 AM EST) [facility] T Spot TB Negative Negative [facility] Comment:A negative test resu [...] aquantitative test. TS PANEL A 0 [facility] TS PANEL B 0 [facility] Negative Control Passed [facility] Positive Control Passed [facility] Comment:For additional infor nika, please refer [email or web address].[email or web address]/[email or web address](This link is being provided for informational/educational purposes only.)THIS TEST WAS PERFORMED AT:[employer] [id number] [place] [phone] DAN MD,PHD 07/07/2024 9:23 AM EST 07/07/2024 1:55 PM EST us Edwige Headley MD LAB BLOOD ORDERABLES Final Re sult Performing Organization Address [facility]/ZIP Co de Phone Number [facility] [address] [place] [phone] * Hepatitis C Antibody with Reflex to HCV, RNA, Quantitative, Real-Time PCR (07/07/2024 9:23 AM EST) Hepatitis C Antibody Nonreactive Nonreactive [facility] Comment:Antibodies to HCV no t detected; does not exclude early acuteHCV infection. Blood Venous blood specimen / Unknown 07/07/2024 9:23 AM EST 07/07/2024 1:55 PM EST us Radha Renee MD LAB BLOOD ORDERABLES Final Result Performing Organization Address [facility] Co de Phone Number [facility] [address] [place] [phone] * POCT SENAIT-14 Urine Drug Screen (06/20/2024 2:05 PM EST) Urine Urine specimen obtained by clean catch procedure / Unknown 06/20/2024 2:05 PM EST Narrative Maria Guadalupe Rodríguez RN - 06/20/2024 2:05 PM EST negative for THC, MOP, OXY, ANTON, MET, AMP, BZO, BAR, MTD, BUPG, TCA, MDMA, PCP, PPX. Lot# [id number] Exp: 04-22-25 Edwige Headley MD POINT OF CARE TEST ENTER/EDIT ORDERABLES Final Result * POCT glucose manually resulted (06/19/2024 2:34 PM EST) Only the most recent of2 resultswithin the time period is included. Glucose Blood, POC 113 60 - 200 mg/dL QC Media Lot # Comment:[id number] Lot# Expiration Date Comment:08/22/2024 Blood Capillary blood specimen / Unknown 06/19/2024 2:34 PM EST Radha Renee MD POINT OF CARE TEST ENTER/ED IT ORDERABLES Final Result * Vitamin D, 25-Hydroxy, Total, Immunoassay (05/31/2024 12:44 PM EST) Pathologist [facility] Vitamin D 25-OH Total 33.6 >30 ng/mL [facility] Comment:Health Based Referen ce Values*< 20 ng/mL Dcloibtjh90-53 ng/mL Insufficient> 30 ng/mL Sufficient*Yessy MENDOZA. N [...] Renee MD LAB BLOOD ORDERABLES Final Result [facility] [address] [place] [address] [phone] * (ABNORMAL) Vitamin B12/Folate, Serum Panel (05/31/2024 12:44 PM EST) Pathologist [facility] Vitamin B12 944(H) 200 - 900 pg/mL [facility] Comment:NORMAL 200-900 PG/ML INDETERMINATE 160-199 PG/ML DEFICIENT < 160 PG/ML Folate 11.9 > or = 4.0 ng/mL [facility] Comment:Reference Values:> o r [...] BLOOD ORDERABLES Final Result Performing Organization Address [facility] Co de Phone Number [facility] [address] [place] [phone] * TSH W/Reflex to FT4 (05/31/2024 12:44 PM EST) [facility] TSH reflex Free T4 1.02 0.32 - 4.0 uIU/mL [facility] Blood Venous blood specimen / Unknown 05/31/2024 12:44 PM EST 05/31/2024 2:20 PM EST us Radha Renee MD LAB BLOOD ORDERABLES Final Result Performing Organization Address [facility]/ZIP Co de Phone Number [facility] [address] [place] [phone] [phone] * (ABNORMAL) Vitamin B1 (05/31/2024 12:44 PM EST) [facility] Vitamin B1 41(A) 8 - 30 nmol/L [facility] Comment:Vitamin supplementat ion within 24 hours prior toblood draw may affect the accuracy of the results.This test was developed and its analytical performancecharacteristics have been determined by [employer] [place], [place]. It hasnot been cleared or approved by the U.S. Food and DrugAdministration. This assay has been validated pursuantto the CLIA regulations and is used for clinicalpurposes.THIS TEST WAS PERFORMED AT:[employer]/[facility] [place] [address]AGNDPVU W. MASON,MD,PHD Blood Venous blood specimen / Unknown 05/31/2024 12:44 PM EST 05/31/2024 2:20 PM EST Radha Renee MD LAB BLOOD ORDERABLES Final Result Performing Organization Address City/[facility]/ZIP Co de Phone Number [facility] [address] [place] [address] [phone] * Magnesium (05/31/2024 12:44 PM EST) Only the most recent of2 resultswithin the time period is included. [facility] Magnesium 1.8 1.6 - 2.6 mg/dL [facility] Blood Venous blood specimen / Unknown 05/31/2024 12:44 PM EST 05/31/2024 2:20 PM EST Radha Renee MD LAB BLOOD ORDERABLES Final Result Performing Organization Address [facility]/ZIP Co de Phone Number [facility] [address] [place] [address] [phone] * (ABNORMAL) POCT HGB A1C (05/30/2024 1:42 PM EST) [facility] Hemoglobin A1C 6.9(A) 4.0 - 6.0 % QC Media Lot # [id number] Lot# Expiration Date [id number] Blood 05/30/2024 1:42 PM EST us Radha Renee MD POINT OF CARE TEST ENTER/ED IT ORDERABLES Final Result * (ABNORMAL) Urinalysis, Complete, with Reflex to Culture (05/16/2024 2:49 PM EST) Color Urine Yellow [facility] Appearance Urine Clear [facility] PH 5.0 5.0 - 9.0 [facility] Glucose Urine UA Negative Negative mg/dL [facility] Urine Blood Trace(A) Negative [facility] Specific Jackson - Urine 1.010 1.005 - 1.025 [facility] Urine Protein Negative Neg-Trace mg/dL [facility] Urine Ketones Negative Negative mg/dL [facility] Nitrite Urine Negative Negative [facility] Leukocyte Esterase Urine Negative Negative [facility] RBC Urine 0-2 0 - 2 /HPF [facility] Urine WBC 0-5 0 - 5 /HPF [facility] Urine Squamous Epithelial Cell 0-2 0 - 2 /HPF [facility] Urine Bacteria None Seen None Seen [facility] Hyaline Casts, Urine 0-2 0 - 2 /LPF [facility] 05/16/2024 2:49 PM EST 05/16/2024 2:56 PM EST Narrative [facility] - 05/16/2024 3:05 PM EST [id number], Clean Catch us Generic External Data Provider LAB URINE ORDERAB LES Final Result [facility] [address] [place], [place] [phone] * (ABNORMAL) VENOUS BLOOD GAS (05/16/2024 1:17 PM EST) VBG pH 7.37 7.32 - 7.43 [facility] Comment:METER #: [id number] additional_comment: Tay arnold VBG PCO2 53 mmHg [facility] Comment:METER #: [id number] additional_comment: Tay arnold VBG PO2 47 mmHg [facility] Comment:METER #: [id number] additional_comment: Tay arnold VBG Base Excess 4.7 mmol/L [facility] Comment:METER #: [id number] additional_comment: Tay KAURG HCO3 31(H) 22 - 26 mmol/L [facility] Comment:METER #: [id number] additional_comment: Tay arnold O2 Sat, Darren 72.0 % [facility] Comment:METER #: [id number] additional_comment: Tay arnold 05/16/2024 1:17 PM EST 05/16/2024 1:23 PM EST Generic External Data Provider LAB BLOOD ORDERAB LES Final Result Performing Organization Address City/[facility]/ZIP Co de Phone Number [facility] [address] [place] [phone] * High Sensitivity Troponin I (05/16/2024 1:10 PM EST) Pathologist [facility] TROPONIN I HIGH SENSITIVITY <2.7 <3.5 - 17.0 ng/L [facility] Comment:The Goldstein high sens itivity Troponin-I results should beused in conjunction with other diagnostic information suchas ECG, clinical observations and information, and patientsymptoms to aid in the diagnosis of ND. 05/16/2024 1:10 PM EST 05/16/2024 1:15 PM EST us Generic External Data Provider LAB BLOOD ORDERAB LES Final Result Performing Organization Address City/[facility]/ZIP Co de Phone Number [facility] [address] [place] [phone] * Procalcitonin (05/16/2024 1:10 PM EST) Pathologist [facility] Procalcitonin 0.05 ng/mL [facility] [...] in interpreting PCT results fromdifferent laboratories and methodologies.References:[place] [employer]/Society of CriticalCare Medicine Consensus Conference Committee. ??Definitionsfor sepsis and organ failure and guidelines for the use ofinnovative therapies in sepsis. ??Crit Care Lhv9315;20(6):864-874.Adrián B, Rodney AGARWAL, Jennyfer H, et al. ??Calcitoninprecursors are reliable markers of sepsis in a medicalintensive care unit. ??Crit Care Med 2000;363:600-607.Terese S, Solange K, Jaylyn C, et al. ??Diagnosticvalue of procalcitonin, interleukin-6 and interleukin-8 incritically ill patients admitted with suspected sepsis. ??AMJ Respir Crit Care Med 2001;164:396-402.[place] Food and Drug Administration. ??510(k) substantialequivalence determination decision summary for [facility] PCTLIA.http://www.accessdata.fda.fov/cdr_docs/reviews/[email or web address].pdf.Published May 2004. ??Accessed October 2016. 05/16/2024 1:10 PM EST 05/16/2024 1:15 PM EST us Generic External Data Provider LAB BLOOD ORDERAB LES Final Result [facility] [address] [place] [phone] * (ABNORMAL) CBC auto differential (05/16/2024 1:10 PM EST) White Blood Count 8.0 4.8 - 10.8 X10*3/uL [facility] Red Blood Count 4.33 4.20 - 5.50 X10*6/uL [facility] Hemoglobin 13.3 12.0 - 16.0 g/dl [facility] Hematocrit 39.3 37.0 - 47.0 % [facility] Mean Corpuscular Volume 90.8 80.0 - 98.0 fL [facility] Mean Corpuscular Hemoglobin 30.7 27.0 - 33.0 pg [facility] Mean Corpuscular HGB Conc 33.8 31.0 - 35.0 g/dl [facility] Red Cell Distribution Width 14.5 11.0 - 16.0 % [facility] Platelet Count 184 160 - 400 X10*3/uL [facility] Mean Platelet Volume 10.4 9.4 - 12.3 fL [facility] Neutrophils Percent Auto 50.6 45 - 73 % [facility] Imm Gran Pct Auto 0.5(H) 0.0 - 0.4 % [facility] Lymphocytes Percent Auto 38.7 20 - 40 % [facility] Monocytes Percent Auto 7.9 2 - 11 % [facility] Eosinophils Percent Auto 2.0 0 - 4 % [facility] Basophils Percent Auto 0.3 0 - 2 % [facility] NRBC Pct Auto 0.0 0.0 - 0.2 /100WBC [facility] Neutrophils Absolute Auto 4.0 2.0 - 8.3 x10*3/uL [facility] Imm Gran Abs Auto 0.04(H) 0.00 - 0.03 X10*3/uL [facility] Lymphocytes Absolute Auto 3.1 1.2 - 4.9 X10*3/uL [facility] Monocytes Absolute Auto 0.6 0.1 - 1.2 X10*3/uL [facility] Eosinophils Absolute Auto 0.2 0.0 - 0.4 X10*3/uL [facility] Basophils Absolute Auto 0.0 0.0 - 0.2 X10*3/uL [facility] NRBC Abs Auto 0.000 0.0 - 0.012 X10*3/uL [facility] 05/16/2024 1:10 PM EST 05/16/2024 1:15 PM EST Generic External Data Provider LAB BLOOD ORDERAB LES Final Result Performing Organization Address City/[facility]/ZIP Co de Phone Number [facility] [address] [place] [phone] * C-reactive Protein (05/16/2024 1:10 PM EST) [facility] C Reactive Protein <0.10 < or = 0.50 mg/dL [facility] 05/16/2024 1:10 PM EST 05/16/2024 1:15 PM EST Generic External Data Provider LAB BLOOD ORDERAB LES Final Result Performing Organization Address [facility] Co de Phone Number [facility] [address] [place] [phone] * B Type Natriuretic Peptide (BNP) (05/16/2024 1:10 PM EST) [facility] B Type Natriuretic Peptide <10 <100 pg/mL [facility] Comment:For those patients w ho are being treated with Natrecor(nesiritide, recombinant BNP), BNP testing should beperformed at least two hours post treatment in order toensure that only endogenous levels of BNP are detected. 05/16/2024 1:10 PM EST 05/16/2024 1:15 PM EST Generic External Data Provider LAB BLOOD ORDERAB LES Final Result Performing Organization Address [facility] Co de Phone Number [facility] [address] [place] [phone] * Lipase (05/16/2024 1:10 PM EST) Pathologist [facility] Lipase 21 8 - 78 U/L [facility] 05/16/2024 1:10 PM EST 05/16/2024 1:15 PM EST Generic External Data Provider LAB BLOOD ORDERAB LES Final Result Performing Organization Address [facility] Co de Phone Number [facility] [address] [place] [phone] * (ABNORMAL) Lactic Acid (05/16/2024 1:10 PM EST) Lactic Acid 3.0(HH) 0.5 - 2.0 mmol/L [facility] Comment:Critical value for L ACTIC: Results called to and read backby: CHARLA Person calling: JAVIERNKIR Date: 05/16/24 Time:1347 05/16/2024 1:10 PM EST 05/16/2024 1:15 PM EST Generic External Data Provider LAB BLOOD ORDERAB LES Final Result Performing Organization Address [facility] Co de Phone Number [facility] [address] [place] [phone] * Hepatic Function Panel (05/16/2024 1:10 PM EST) Bilirubin, Total 0.4 0.0 - 1.0 mg/dL [facility] Bilirubin, Direct 0.2 0.0 - 0.5 mg/dL [facility] Aspartate Amino Transferase 28 5 - 31 U/L [facility] Alanine Aminotransferase 31 0 - 31 U/L [facility] Total Protein 7.4 6.5 - 8.0 g/dL [facility] Albumin Level 4.0 3.5 - 5.0 g/dL [facility] Alkaline Phosphatase 66 39 - 117 U/L [facility] 05/16/2024 1:10 PM EST 05/16/2024 1:15 PM EST us Generic External Data Provider LAB BLOOD ORDERAB LES Final Result Performing Organization Address City/[facility]/ZIP Co de Phone Number [facility] [address] [place] [phone] * (ABNORMAL) Basic Metabolic Panel (05/16/2024 1:10 PM EST) Sodium 142 135 - 145 mmol/L [facility] Potassium 3.9 3.3 - 5.1 mmol/L [facility] Chloride 108 96 - 108 mmol/L [facility] Carbon Dioxide 26 22 - 29 mmol/L [facility] Anion Gap 12 12 - 20 [facility] Urea Nitrogen (BUN) 12 9 - 16 mg/dL [facility] Creatinine, Serum 0.83 0.5 - 1.4 mg/dL [facility] Creatinine Clr Calc Pharmacy 49.6 [facility] Comment:Provided height and weight: 165.1 cm,56.3 kg.eGFR (calculated from the MDRD study equation) and eCrCl(calculated from the Cockcroft-Gault equation) are based ondifferent parameters and may not yield comparable results.If eCrCl result is absurd, please check patient'sheight/weight. Estimated Glomerular Filt Rate >60 [facility] Comment:Chronic Kidney Disea se: Estimated GFR < 60 mL/min/1.94y6Phogat Kidney Disease: Estimated GFR < 15 mL/min/1.73m2 Glucose 149(H) 60 - 115 mg/dL [facility] Calcium 9.1 8.4 - 10.2 mg/dL [facility] 05/16/2024 1:10 PM EST 05/16/2024 1:15 PM EST us Generic External Data Provider LAB BLOOD ORDERAB LES Final Result Performing Organization Address City/[facility]/ZIP Co de Phone Number [facility] [address] [place] [phone] * SARS-CoV-2 RNA, Influenza A/B, and RSV RNA, Ql NAAT (05/16/2024 1:09 PM EST) Influenza A PCR NEGATIVE Negative [facility] Influenza B PCR NEGATIVE Negative [facility] Resp Syncy Virus RNA Qual PCR NEGATIVE Negative [facility] SARS COV2 PCR NEGATIVE Negative [facility] Comment:All test results mus t [...] use by authorized laboratories.Testing performed on the [employer] GeneXpert utilizingreal-time RT-PCR.All SARS CoV2 and positive influenza A/B results arereported to [facility]. 05/16/2024 1:09 PM EST 05/16/2024 1:15 PM EST us Generic External Data Provider LAB MICROBIOLOGY - GENERAL ORDERABLES Final Result Performing Organization Address [facility]/ZIP Co de Phone Number [facility] [address] [place] [phone] * Blood Culture (Second) (05/16/2024 12:52 PM EST) Blood Venous blood specimen / Unknown 05/16/2024 12:52 PM EST 05/16/2024 1:33 PM EST Comment:Blood Narrative [facility] - 05/16/2024 1:33 PM EST Multiple attempts for 2nd set of BCs. Unable to obtain at this time. aware. Blood Culture (Second) Test not performed CANCELED BY PROVIDER Specimen Source: Blood us Generic External Data Provider LAB MICROBIOLOGY - GENERAL ORDERABLES Final Result Performing Organization Address [facility]/ZIP Co de Phone Number [facility] [address] [place] [phone] * XR Chest 1 View (05/16/2024 12:50 PM EST) Anatomical Region Laterality Modality Chest Radiographic Patricia ging 05/16/2024 12:5 0 PM EST Narrative 05/16/2024 1:24 PM EST ? [facility] ?[address] ?[place] [address] ?XRay Report ? Signed ? Patient: Puri Hoffmann,Blasina ?MR#: [id number] ?? [id number] ? : 1945 ?Acct:[id number] ? Age/Sex: 78 / F ?ADM Date: 05/16/24 ? Loc: HO.ED ? Attending Dr: ? Ordering Physician: Nandini Dumont DO ?? Date of Service: 05/16/24 ?? Procedure(s): XR chest 1V ?? Accession Number(s): [id number] ? cc: Nandini Dumont DO; Edwige Headley [...] DD/ 1250 ? TD/TT: 05/16/24 1255 ? Compressor Stations Superintendent: MSM ? Procedure Note Drea, Jose - 05/16/[address] [address] XRay Report Signed Patient: Arthur Holguin#: [id number] : 6Acct:[id number] Age/Sex: 78 / FADM Date: 05/16/24 Loc: HO.ED Attending Dr: Ordering Physician: Nandini Dumont DO Date of Service: 05/16/24 Procedure(s): XR chest 1V Accession Number(s): [id number] cc: Nandini Dumont DO; Edwige Headley MD [...] 05/16/24 1321 DD/ 1250 TD/TT: 05/16/24 1255 Compressor Stations Superintendent: [facility] External Provider IMG XR PROCEDURES Final Result * Lipid Panel, Standard (08/30/2023 10:36 AM EDT) Triglycerides 39 <150 mg/dL [facility] Comment:Desirable Triglyceri de: less than 150 mg/dLBorderline High Triglyceride 150-199 mg/dLHigh Triglyceride: 200-499 mg/dLVery High Triglyceride: greater than or equal to 5OO mg/dL Cholesterol 116 <200 mg/dL [facility] Comment:Desirable Cholestero l: less than 200 mg/dLBorderline High Cholesterol: 200-239 mg/dLHigh Cholesterol: greater than 239 mg/dL LDL Cholesterol Calculated 35 <100 mg/dL [facility] Comment:Desirable LDL: less than 100 mg/dLNear Optimal/Above Optimal LDL: 110- 129 mg/dLBorderline High LDL: 130-159 mg/dLHigh LDL: 160-189 mg/dLVery High LDL: greater than or equal to 190 mg/dL HDL Cholesterol 74 >40 mg/dL [facility] Comment:Desirable HDL: great er than 40 mg/dL Note: This HDL assay may give artificially low results in patients with liver disease. 08/30/2023 10:3 6 AM EDT 08/30/2023 10:41 AM EDT us Generic External Data Provider LAB BLOOD ORDERAB LES Final Result [facility] [address] [place] [address] [phone] * Albumin, Random Urine W/O Creatinine (08/21/2022 10:43 AM EDT) Albumin, Urine 1.8 See Note: mg/dL [facility] Comment: Reference Range: Reference Range Not established [facility] [employer] (air [employer]) Comment: The ADA defines abnormalities in albumin [...] URINE ORDERABLES Final Re sult [facility] [address], [place] [address] [place] [employer] [place] [employer] [address] [place] [address] from Last 3 Months or Most Recently Relevant to Health Maintenance Insurance [facility] STANDARD Care Teams Adult Crossing Guard Relationship Specialty Start Date End Date Edwige Headley MD [address] [place] [address] PCP - General Family Medicine 08/21/22
--- OUTSIDE RECORDS SUMMARY | 2024-07-18 12:10 | XMS_ITS | Encounter Summary ---
Author Organization [employer] Address [address] 7t [place] [address] Care Team Providers Care Chief Engineer'S Helper Name Role Phone Edwige Headley MD Primary Care Provider [phone] Encounter Details Date Type Department Care Team ([facility] st Contact Info) Description 10/22/2022 Telephone [facility] [address] [place], [place] [phone] Edwige Headley MD [address] [place] [address] Social History Tobacco Use Types Packs/Day Years [...] a call in regards to message above. (Belarusian speaker) * Telephone Encounter - Inez Martinez - 10/22/2022 3:31 PM EDT TC from pt requesting help to schedule her gastro appt . Please call to clarify . documented in this encounter Plan of Treatment Upcoming Encounters Date Type Department Care Team (Late st Contact Info) Description 07/20/2024 10:45 AM EST Office Visit [facility] MED & PEDS [address] [place] [address] Nina Clemons MD [address] [place] [address] 08/24/2024 2:30 PM EDT Clinical Support [facility] [address] [place] [address] Maria Guadalupe Rodríguez RN [address] [place], [place] [phone] documented as of this encounter Goals Goal [...] documented as of this encounter Care Teams Chief Engineer'S Helper Relationship Specialty Start Date End Date Edwige Headley MD [address] [place] [address] PCP - General Family Medicine 08/21/22 documented as of this encounter
--- OUTSIDE RECORDS SUMMARY | 2024-07-18 12:10 | XMS_ITS | Encounter Summary ---
Author Organization [employer] Address [address] [facility] 7t [place] [address] Care Team Providers Care Thrill Performer Name Role Phone Edwige Headley MD Primary Care Provider [phone] Encounter Details Date Type Department Care Team (Late Contact Info) Description 11/03/2022 Abstract [facility] [employer] ([email or web address]) Information Management [address] [place] [address] Edwige Headley MD [address] [place], [place] [phone] Social History Tobacco Use Types Packs/Day Years [...] Description 07/20/2024 10:45 AM EST Office Visit [facility] MED & PEDS [address] [place], [place] [phone] Nina Clemons MD 505 [place] [address] 08/24/2024 2:30 PM EDT Clinical Support [facility] MED & PEDS [address] [place] [address] Maria Guadalupe Rodríguez, RN 505 [place], [place] [phone] documented as of this encounter Goals Goal [...] documented as of this encounter Care Teams Thrill Performer Relationship Specialty Start Date End Date Edwige Headley MD [address] [place] [address] PCP - General Family Medicine 08/21/22 documented as of this encounter
--- OUTSIDE RECORDS SUMMARY | 2024-07-18 12:10 | XMS_ITS | Encounter Summary ---
Author Organization [employer] Address [address] [facility] 7 [place] [address] Care Team Providers Care Roguer Name Role Phone Edwige Headley MD Primary Care Provider [phone] Reason for Visit * Reason Comments Annual Exam Encounter Details Date Type Department Care Team ([facility] st Contact Info) Description 06/19/2024 2:45 PM EST Office Visit [facility] MED & PEDS [address] [place] [address] Radha Renee MD [address] [place] [address] Fibromyalgia (Primary Dx); Type 2 diabetes mellitus [...] with hyperglycemia, without long-term current useof insulin ([facility]) ??? Urinary incontinence ??? Moderate persistent asthma ??? Alzheimer's dementia (CMS/[facility]) ??? Chronic diastolic heart failure (CMS/HCC) ??? Vertigo ??? 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 CKD (chronic kidney disease), stage II ??? Gastroesophageal reflux disease ??? Type 2 diabetes mellitus with hyperglycemia, without long-term current use of insulin (CMS/[facility]) ??? Hypertension ??? Headache, common migraine, [...] each 0 ??? Lancets (OneTouch Delica Plus [id number]) misc 1 Units in the morning. Please [...] hyperglycemia, without long-term current use of insulin ([facility]) Comments: Stable No change Continue with [...] 10:45 AM EST Office Visit [facility] MED & PEDS [address] [place] [address] Nina Clemons MD [address] [place] [address] 08/24/2024 2:30 PM EDT Clinical Support [facility] MED & PEDS [address] [place] [address] Maria Guadalupe Rodríguez RN 505 [place] [address] Scheduled Orders Name Type Priority Associated Diagnoses [...] EST) Hepatitis C Antibody Nonreactive Nonreactive [facility] Comment:Antibodies to HCV no t detected; does not exclude early acuteHCV infection. Blood Venous blood specimen / Unknown 07/07/2024 9:23 AM EST 07/07/2024 1:55 PM EST us Radha Renee MD LAB BLOOD ORDERABLES Final Result [facility] [address] [place] [phone] * POCT glucose manually resulted (06/19/2024 2:34 PM EST) Glucose Blood, POC 113 60 - 200 mg/dL QC Media Lot # Comment:[id number] Lot# Expiration Date Comment:08/22/2024 Blood Capillary blood specimen / Unknown 06/19/2024 2:34 PM EST us Radha Renee MD POINT OF CARE TEST ENTER/ED IT ORDERABLES Final Result documented in this encounter Visit Diagnoses Diagnosis Fibromyalgia- Primary Unspecified myalgia and myositis Type 2 diabetes mellitus with hyperglycemia, without long-term current use of insulin ([facility]) Chronic diastolic heart failure ([facility]/HCC) Chronic diastolic heart failure Chronic obstructive pulmonary disease, unspecified COPD type ([facility]/HCC) documented in this encounter Additional Health Concerns Assessment Noted Time PHQ-9 Depression Total Score: 10 10/28/ 024 12:52 PM EDT documented as of this encounter Care Teams Roguer Relationship Specialty Start Date End Date Edwige Headley MD [address] [place] [address] PCP - General Family Medicine 08/21/22 documented as of this encounter
--- OUTSIDE RECORDS SUMMARY | 2024-07-18 12:10 | XMS_ITS | Encounter Summary ---
Author Organization [employer] Address [address] 7t [place] [address] Care Team Providers Care Trimming Machine Set Up Operator Name Role Phone Edwige Headley MD Primary Care Provider [phone] Reason for Visit * Reason Comments Med Refill Encounter Details Date Type Department Care Team ([facility] st Contact Info) Description 08/13/2023 Refill [facility] & [facility]EDS [address] [place], [place] [phone] Edwige Headley MD [address] [place] [address] Social History Tobacco Use Types Packs/Day Years [...] Description 07/20/2024 10:45 AM EST Office [facility] MED & PEDS [address] [place] [address] Nina Clemons MD [address] [place] [address] 08/24/2024 2:30 PM EDT Clinical Support [facility] MED & PEDS [address] [place] [address] Maria Guadalupe Rodríguez RN [address] [place] [address] documented as of this encounter Goals Goal [...] documented as of this encounter Care Teams Trimming Machine Set Up Operator Relationship Specialty Start Date End Date Edwige Headley MD [address] [place] [address] PCP - General Family Medicine 08/21/22 documented as of this encounter
--- OUTSIDE RECORDS SUMMARY | 2024-07-18 12:10 | XMS_ITS | Encounter Summary ---
Author Organization [employer] Address [address] 7t [place] [address] Care Team Providers Care Workforce Development Assistant Name Role Phone Edwige Headley MD Primary Care Provider [phone] Reason for Visit * Reason Onset Date Comments PT-1 03/28/2024 Encounter Details Date Type Department Care Team ([facility] st Contact Info) Description 03/28/2024 Telephone [facility] MEDICINE [address] [place] [address] Edwige Headley MD [address] [place] [address] PT-1 Social History Tobacco Use Types Packs/Day [...] Y/N: Yes Provider name or facility name: [facility] Address: [address] [place] [address] Escort needed: Y/N: Yes Do you have a wheelchair: Y/N: No If yes- Manual or electric: (Uses Walker) Visits: Once a month documented in this encounter Plan of Treatment Upcoming Encounters Date Type Department Care Team (Late st Contact Info) Description 07/20/2024 10:45 AM EST Office Visit [facility] MED & PEDS [address] [place] [address] Nina Clemons MD [address] [place] [address] 08/24/2024 2:30 PM EDT Clinical Support [facility] MED & PEDS [address] [place] [address] Maria Guadalupe Rodríguez RN [address] [place] [address] documented as of this encounter Goals Goal [...] documented as of this encounter Care Teams Workforce Development Assistant Relationship Specialty Start Date End Date Edwige Headley MD [address] [place] [address] PCP - General Family Medicine 08/21/22 documented as of this encounter
--- OUTSIDE RECORDS SUMMARY | 2024-07-18 12:10 | XMS_ITS | Encounter Summary ---
Author Organization [employer] Address [address] 7t [place] [address] Care Team Providers Care Manufacturing Technician Name Role Phone Edwige Headley MD Primary Care Provider [phone] Reason for Visit * Reason Comments controlled substance treatment Encounter Details Date Type Department Care Team ([facility] Contact Info) Description 06/20/2024 1:00 PM EST Clinical Support [facility] CHC MED & PEDS [address] [place] [address] Maria Guadalupe Rodríguez, RN 505 [place] [address] Fibromyalgia Social History Tobacco Use Types Packs/Day [...] t he electric, gas, oil or water [employer] threatened to shut off services in your [...] RN - 06/20/2024 1:00 PM EST S: TIMING ADJUSTER initial [place]. VINCENT [place] interpreting. Prescribed Tramadol 50mg PO q12h PRN. States has been taking as prescribed. Denies ETOH, nicotine/illicit drugs use. Currently rates pain a 9/10 and states medication is 40% effective at alleviating pain. Current pain sites are shoulders, R elbow, knees,L thigh. Last PCP f/u 02/25/24. No questions/ concerns at this time. TIMING ADJUSTER Agreement initiated today. O: SLICE PLUG CUTTER OPERATOR HELPER verified today. Rx last filled 04/18/24. Pill count not performed as patient does not have any pills left, 0 expected. BPI form completed today. Pain severity score of (9), activity interference score of (4). Utox performed, negative for all tested substances, as expected. TONY 7 screening done, total score 4, mild anxiety. Opioid Risk Tool performed, low risk. A: TIMING ADJUSTER Agreement Initiation: Opioid dependence related to chronic pain. P: Patient to continue taking medication only as prescribed; Next TIMING ADJUSTER RV appointment scheduled for 08/24/24 @ 2:30pm. F/U sooner PRN. Patient verbalized understanding and agreed to plan. documented in this encounter Plan of Treatment Upcoming Encounters Date Type Department Care Team (Late st Contact Info) Description 07/20/2024 10:45 AM EST Office Visit [facility] MED & PEDS [address] [facility] [place] [address] Nina Clemons MD 505 [facility] [place] [address] 08/24/2024 2:30 PM EDT Clinical Support [facility] CHC MED & PEDS [address] [place] [address] Maria Guadalupe Rodríguez, RN [address] [place], [place] documented as of this encounter Goals [...] MTD, BUPG, TCA, MDMA, PCP, PPX. Lot# [id number] Exp: 04-22-25 Edwige Headley MD POINT OF CARE TEST ENTER/EDIT ORDERABLES Final Result documented in this encounter Visit Diagnoses Diagnosis Fibromyalgia Unspecified myalgia and myositis documented in this encounter Additional Health Concerns Assessment Noted Time PHQ-9 Depression Total Score: 10 024 12:52 PM EDT documented as of this encounter Care Teams Manufacturing Technician Relationship Specialty Start Date End Date Edwige Headley MD [address] [place] [address] PCP - General Family Medicine 08/21/22 documented as of this encounter
--- OUTSIDE RECORDS SUMMARY | 2024-07-18 12:10 | XMS_ITS | Encounter Summary ---
Author Organization [employer] Address [address] 7t [place] [address] Care Team Providers Care Bridges And Buildings Supervisor Name Role Phone Edwige Headley MD Primary Care Provider [phone] Reason for Visit * Reason Onset Date Comments Appointment Request 04/06/2024 Encounter Details Date Type Department Care Team ([facility] st Contact Info) Description 04/06/2024 Telephone [facility] [address] [place] [address] Edwige Headley MD [address] [place] [address] Appointment Request Social History Tobacco Use Types [...] somewhere else. Contac pt to r/s at [phone] documented in this encounter Plan of Treatment Upcoming Encounters Date Type Department Care Team (Late st Contact Info) Description 07/20/2024 10:45 AM EST Office Visit [facility] MED & PEDS [address] [place] [address] Nina Clemons MD [address] [place] [address] 08/24/2024 2:30 PM EDT Clinical Support [facility] MED & PEDS [address] [place] [address] Maria Guadalupe Rodríguez RN [address] [place] [address] documented as of this encounter Goals Goal [...] documented as of this encounter Care Teams Bridges And Buildings Supervisor Relationship Specialty Start Date End Date Edwige Headley MD [address] [place] [address] PCP - General Family Medicine 08/21/22 documented as of this encounter
--- OUTSIDE RECORDS SUMMARY | 2024-07-18 12:11 | XMS_ITS | Encounter Summary ---
Author Organization [employer] Address [address] 7t [place] [address] Care Team Providers Care Geodetic Survey Director Name Role Phone Edwige Headley MD Primary Care Provider [phone] Encounter Details Date Type Department Care Team [...] 10:45 AM EST Office Visit [facility] MED & PEDS [address] [place] [address] Nina Clemons MD [address] [place], [place] 08/24/2024 2:30 PM EDT Clinical Support [facility] MED & PEDS [address] [place], [place] [phone] Maria Guadalupe Rodríguez RN 505 [place], [place] [phone] documented as of this encounter Goals Goal [...] documented as of this encounter Care Teams Geodetic Survey Director Relationship Specialty Start Date End Date Edwige Headley MD [address] [place] [address] PCP - General Family Medicine 08/21/22 documented as of this encounter
--- OUTSIDE RECORDS SUMMARY | 2024-07-18 12:11 | XMS_ITS | Encounter Summary ---
Author Organization [employer] Address [address] 7t [place] [address] Care Team Providers Care Stone Dresser Name Role Phone Edwige Headley MD Primary Care Provider [phone] Reason for Visit * Reason Comments Med Refill Encounter Details Date Type Department Care Team ([facility] st Contact Info) Description 07/05/2024 Refill [facility] CHC MED & PEDS [address] [place], [place] [phone] Edwige Headley MD [address] [place] [address] Social History Tobacco Use Types Packs/Day Years [...] [facility] [address] [place] [address] Nina Clemons MD [address] [place] [address] 08/24/2024 2:30 PM EDT Clinical Support [facility] MED & PEDS [address] [place] [address] Maria Guadalupe Rodríguez, RN 505 [place] [address] documented as of this encounter Goals Goal [...] documented as of this encounter Care Teams Stone Dresser Relationship Specialty Start Date End Date Edwige Headley MD [address] [place] [address] PCP - General Family Medicine 08/21/22 documented as of this encounter
--- OUTSIDE RECORDS SUMMARY | 2024-07-18 12:11 | XMS_ITS | Encounter Summary ---
Author Organization [employer] Address [address] 7t [place] [address] Care Team Providers Care Maintenance Of Way Supervisor Name Role Phone Edwige Headley MD Primary Care Provider [phone] Reason for Visit * Reason Comments Med Refill Encounter Details Date Type Department Care Team ([facility] st Contact Info) Description 07/06/2024 Refill [facility]INE [address] [place], [place] [phone] Edwige Headley MD [address] [place] [address] Alzheimer's disease, unspecified (CODE) (CMS/[facility]) Social History Tobacco Use Types Packs/Day Years [...] 07/20/2024 10:45 AM EST Office Visit [facility] MED & PEDS [address] [place] [address] Nina Clemons MD [address] [place] [address] 08/24/2024 2:30 PM EDT Clinical Support [facility] MED & PEDS [address] [place] [address] Maria Guadalupe Rodríguez RN 505 [place], [place] [phone] documented as of this encounter Goals Goal Patient Goal Type Associated Problems Recent Progress Patient-Stated? Author Use the inhalers as prescribed by provider; Flovent HFA scheduled and albuterol as needed General No Marcel Garcia, PharmD Take your medication every day Lifestyle No Marcel Garcia PharmD documented as of this encounter Visit Diagnoses Diagnosis Alzheimer's disease, unspecified (CODE) (CMS/[facility]) documented in this encounter Additional Health Concerns Assessment Noted Time PHQ-9 Depression Total Score: 10 024 12:52 PM EDT documented as of this encounter Care Teams Maintenance Of Way Supervisor Relationship Specialty Start Date End Date Edwige Headley MD [address] [place] [address] PCP - General Family Medicine 08/21/22 documented as of this encounter
--- OUTSIDE RECORDS SUMMARY | 2024-07-18 12:11 | XMS_ITS | Encounter Summary ---
Author Organization [email or web address] Address [address] [place] [address] Care Team Providers Care Dyer Assistant Name Role Phone Edwige Headley MD Primary Care Provider [phone] Reason for Visit * Reason Comments Med Refill Encounter Details Date Type Department Care Team ([facility] st Contact Info) Description 06/26/2024 Refill [facility] CHC MED & PEDS [address] [place], [place] [phone] Edwige Headley MD [address] [place] [address] Social History Tobacco Use Types Packs/Day Years [...] Description 07/20/2024 10:45 AM EST Office Visit [facility] MED & PEDS [address] [place] [address] Nina Clemons MD [address] [place] [address] 08/24/2024 2:30 PM EDT Clinical Support [facility] MED & PEDS [address] [place] [address] Maria Guadalupe Rodríguez, RN [address] [place] [address] documented as of this encounter Goals Goal [...] documented as of this encounter Care Teams Dyer Assistant Relationship Specialty Start Date End Date Edwige Headley MD [address] [place] [address] PCP - General Family Medicine 08/21/22 documented as of this encounter
--- OUTSIDE RECORDS SUMMARY | 2024-07-18 12:11 | XMS_ITS | Encounter Summary ---
Author Organization [employer] Address [address] [place] [address] Care Team Providers Care Sonar Watchstander Name Role Phone Edwige Headley MD Primary Care Provider [phone] Reason for Visit * Reason Comments Med Refill Encounter Details Date Type Department Care Team ([facility] st Contact Info) Description 10/16/2023 Refill [facility] CHC MED & PEDS [address] [place], [place] [phone] Edwige Headley MD 505 [place] [address] Social History Tobacco Use Types Packs/Day Years [...] Description 07/20/2024 10:45 AM EST Office Visit [facility] MED & PEDS [address] [place] [address] Nina Clemons MD [address] [place] [address] 08/24/2024 2:30 PM EDT Clinical Support [facility] MED & PEDS [address] [place] [address] Maria Guadalupe Rodríguez RN 505 [place] [address] documented as of this encounter Goals Goal [...] documented as of this encounter Care Teams Sonar Watchstander Relationship Specialty Start Date End Date Edwige Headley MD [address] [place] [address] PCP - General Family Medicine 08/21/22 documented as of this encounter
--- OUTSIDE RECORDS SUMMARY | 2024-07-18 12:11 | XMS_ITS | Encounter Summary ---
Author Organization [employer] Address [address] [place] [address] Care Team Providers Care Centrifugal Casting Machine Operator Name Role Phone Edwige Headley MD Primary Care Provider [phone] Reason for Visit * Reason Onset Date Comments Med Refill 06/20/2024 Encounter Details Date Type Department Care Team ([facility] st Contact Info) Description 06/20/2024 Refill [facility] MED & PEDS 505 [place] [address] Maria Guadalupe Rodríguez, RN 505 [place] [address] Fibromyalgia Social History Tobacco Use Types Packs/Day [...] Visit [facility] MED & PEDS [address] [place] [address] Nina Clemons MD 505 [place] [address] 08/24/2024 2:30 PM EDT Clinical Support [facility] MED & PEDS [address] [place] [address] Maria Guadalupe Rodríguez, RN 505 [place] [address] documented as of this encounter Goals Goal [...] documented as of this encounter Care Teams Centrifugal Casting Machine Operator Relationship Specialty Start Date End Date Edwige Headley MD 230 [place] [address] PCP - General Family Medicine 08/21/22 documented as of this encounter
[2024-07-18 14:55] LABS: Creatinine Urine 47.58 mg/dL; Microalbum/Creatinine Ratio Ur 27.3 ug/mg cr (<30)
== END 2024-07-18 10:13 | disposition home or self-care (01) ==
LOC: HO.CHCLDS 10:12
PROVIDERS: Visit Provider Internal Medicine
DX: E11.65 Type 2 diabetes mellitus with hyperglycemia (principal)
CPT/HCPCS: 82043; 82570

== ENCOUNTER 2024-08-01 10:20 | Outpatient (REF) | payer OTHER, SELFPAY ==
--- NOTE | ~2024-08-01 | XR_ITS ---
EXAMINATION: XR HAND 3 OR MORE VIEWS LEFT HISTORY: left hand pain COMPARISON: There are no prior studies available for comparison. FINDINGS: Three views of the left hand are submitted. The bones are osteopenic. There is no fracture or dislocation. There is mild to moderate osteoarthritis of the 1st carpometacarpal joint, with joint space narrowing and osteophyte formation. There is mild osteoarthritis of the DIP joints. The soft tissues are unremarkable. XR/XR hand LT min 3V IMPRESSION: Osteopenia. Osteoarthritis as described. Electronically signed by: Clarke Fierro MD 08/02/2024 07:04 AM EDT
--- OUTSIDE RECORDS SUMMARY | 2024-08-01 12:01 | XMS_ITS | Clinical Summary ---
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 Please [...] BY MOUTH EVERY DAY FOR 3 MONTHS 024 Active levalbuterol (Xopenex) 1.25 MG/3ML nebulizer solution INHALE 1 AMPULE USING A NEBULIZER EVERY 4 TO 6 HOURS NEEDED SHORTNESS OF BREATH OR FOR WHEEZING Active Trelegy Ellipta 200-62.5-25 MCG/ACT aerosol powder Inhale 1 puff Once per day. 024 Active glucose blood test strip Use as directed 3 times daily 100 each 11 024 2024 Active losartan (Cozaar) 25 MG tablet TAKE 1 TABLET BY MOUTH EVERY MORNING 90 tablet 1 024 Active Aspirin Low Dose 81 MG EC tablet TAKE 1 TABLET BY MOUTH EVERY MORNING 90 tablet 1 024 Active Diclofenac Sodium 1 % gel APPLY 2 GRAMS TOPICALLY TO AFFECTED AREA(S) THREE TIMES DAILY DIRECTED 350 g 1 024 Active lidocaine (Lidoderm) 5 % patch APPLY 1 PATCH TOPICALLY LEAVE ON FOR 12 HOURS AND OFF FOR 12 HOURS DIRECTED BY 30 patch 5 024 Active sucralfate (Carafate) 1 GM/10ML suspension TAKE [...] times daily. 60 capsule 1 025 Active famotidine (Pepcid) 40 MG tablet TAKE 1 TABLET BY MOUTH AT BEDTIME 90 tablet 1 025 Active gabapentin (Neurontin) 300 MG capsule TAKE 1 CAPSULE BY MOUTH THREE TIMES DAILY 90 capsule 025 Active calcium carbonate 1500 (600 Ca) MG tablet TAKE 1 TABLET BY MOUTH TWICE DAILY IN THE MORNING AND IN THE EVENING WITH FOOD 180 tablet 1 025 Active metFORMIN (Glucophage) 500 MG tablet TAKE 1 TABLET BY MOUTH THREE TIMES DAILY IN THE MORNING, AT NOON, AND IN THE EVENING 270 tablet 1 025 Active montelukast (Singulair) 10 MG tablet TAKE 1 TABLET BY MOUTH AT BEDTIME 90 tablet 1 025 Active Multiple Vitamin (Multivitamin) tablet TAKE 1 TABLET BY MOUTH EVERY MORNING 90 tablet 1 025 Active rosuvastatin (Crestor) 20 MG tablet TAKE 1 TABLET BY MOUTH AT BEDTIME 90 tablet 1 025 Active Diclofenac Sodium 1 % gelIndications: Left hand pain To apply to the affected area 3 times a day 100 g 025 Active butalbital-acet aminophen-caffe ine 50-325-40 MG tabletIndicatio ns:Headache, common migraine, intractable 1 tablet a day as needed. Not to use this medication more than 3 times a week 8 tablet 025 Active traMADol (Ultram) 50 MG tabletIndicatio ns:Fibromyalgia Take 1 tablet (50 mg) by mouth every 12 (twelve) hours if needed for severe pain. 42 tablet 025 Active memantine (Namenda) 5 MG tabletIndicatio ns:Alzheimer's disease, unspecified (CODE) (CMS/HCC) TAKE 1 TABLET BY MOUTH TWICE DAILY IN THE MORNING AND IN THE EVENING 60 tablet 025 Active memantine (Namenda) 5 MG tablet 024 2024 Discontinued gabapentin (Neurontin) 300 MG capsule TAKE 1 CAPSULE BY MOUTH THREE TIMES DAILY 90 capsule 2 024 2024 Discontinued calcium carbonate 1500 (600 Ca) MG tablet TAKE 1 TABLET BY MOUTH TWICE DAILY IN THE MORNING AND IN THE EVENING WITH FOOD 180 tablet 1 024 2024 Discontinued rosuvastatin (Crestor) 20 MG tablet TAKE 1 TABLET BY MOUTH AT BEDTIME 90 tablet 1 024 2024 Discontinued Multiple Vitamin (Multivitamin) tablet TAKE 1 TABLET BY MOUTH EVERY MORNING 90 tablet 1 024 2024 Discontinued montelukast (Singulair) 10 MG tablet TAKE 1 TABLET BY MOUTH AT BEDTIME 90 tablet 1 024 2024 Discontinued metFORMIN (Glucophage) 500 MG tablet TAKE 1 TABLET BY MOUTH THREE TIMES DAILY IN THE MORNING, AT NOON, AND IN THE EVENING 270 tablet 1 024 2024 Discontinued traMADol (Ultram) 50 MG tabletIndicatio ns:Fibromyalgia Take 1 tablet (50 mg) by mouth every 12 (twelve) hours if needed for severe pain. 42 tablet 025 2024 Discontinued(R eorder (will not trigger notification to Pharmacy)) memantine (Namenda) 5 MG tabletIndicatio ns:Alzheimer's disease, unspecified (CODE) ([facility]) TAKE 1 TABLET BY MOUTH TWICE DAILY IN THE MORNING AND IN THE EVENING 60 tablet 025 2024 Discontinued Active Problems Problem Noted Date Diagnosed Date Chronic left ear pain 08/31/2023 Assessment & Plan (09/01/2023 2:20 AM EDT): Referral to ENT and Audiology for further evaluation of left ear. - Hx of left ear pain and hearing loss Hearing loss 08/31/2023 Dysphagia 07/20/2023 Assessment & Plan (09/01/2023 2:22 AM EDT): Barium swallow test came back normal. Referred to assembly repairer Assessment & Plan (07/20/2023 9:51 PM EST): [...] be prescribed steroids. Recommended patient to call Roll Coverer to schedule an appointment to get further [...] Center 10/18/2023 3:30 PM Edwige Headley MD [facility] Assessment & Plan (03/19/2023 3:58 PM [...] and daughter. PLAN: 1. Follow up with [facility]: Not recommended for follow-up 2. Patient goal is to be able to manage her symptoms without medication. 3. Behavioral Recommendations a. Referral to Ind. therapy b. Practice of Coping skills for Anxiety c. Contact this typewriter operator automatic for support as needed Encounters Date Type Department Care Team Description 07/30/2024 Refill [facility] [address] [place] [address] Maryuri Milelr FNP Alzheimer's disease, unspecified (CODE) ([facility]) 07/27/2024 9:30 AM EDT Office Visit [facility] [address] [place] [address] Radha Renee MD Left hand pain (Primary Dx); Meralgia paresthetica of left side; Headache, common migraine, intractable 07/27/2024 Refill [facility] [address] [place] [address] Edwige Headley MD Fibromyalgia 07/27/2024 Travel 07/24/2024 Refill [facility] [address] [place] [address] Edwige Headley MD 07/19/2024 Telephone [facility] [address] [place] [address] Nina Clemons MD Appointment Request 07/17/2024 Telephone [facility] [address] [place] [address] Edwige Headley MD Nurse Triage 07/06/2024 Refill [facility] [address] [place] [address] Edwige Headley MD Alzheimer's disease, unspecified (CODE) ([facility]) 07/06/2024 Telephone [facility] [address] [place] [address] Edwige Headley MD Lab Orders 07/05/2024 Refill [facility] [address] [place] [address] Edwige Headley MD 06/26/2024 Refill [facility] [address] [place] [address] Edwige Headley MD 06/20/2024 1:00 PM EST Clinical Support [facility] [address] [place] [address] Maria Guadalupe Rodríguez RN Fibromyalgia 06/20/2024 Travel 06/20/2024 Refill [facility] [address] [place] [address] Maria Guadalupe Rodríguez, AC Fibromyalgia 06/19/2024 2:45 PM EST Office Visit [facility] [address] [place] [address] Radha Renee MD Fibromyalgia (Primary Dx); Type 2 diabetes mellitus with hyperglycemia, without long-term current use of insulin ([facility]); Chronic diastolic heart failure ([facility]); Chronic obstructive pulmonary disease, unspecified COPD type ([facility]) 06/19/2024 Travel 06/13/2024 Refill [facility] [address] [place] [address] Edwige Headley MD Fibromyalgia 05/30/2024 1:00 PM EST Office Visit [facility] [address] [place] [address] Radha Renee MD Chronic obstructive pulmonary disease, unspecified COPD type ([facility]) (Primary Dx); Raynaud's phenomenon without gangrene; Other fatigue; Type 2 diabetes mellitus with hyperglycemia, without long-term current use of insulin ([facility]); Primary hypertension 05/30/2024 Travel 05/25/2024 Patient Outreach [facility] [address] [place] [address] Edwige Headley MD Transition Of Care (Tcm) (HDF- scheduled and SDOH screening completed on 10/29/2023) 05/25/2024 Telephone [facility] [address] [place] [phone] Edwige Headley MD Hospital Follow-up 05/24/2024 Telephone [facility] [address] [place] [address] Mary Santiago MD 05/16/2024 Orders Only [facility] External Provider, [facility] 05/16/2024 Telephone [facility] [address] [place] [address] Brody Carter MD 05/10/2024 Refill [facility] [address], [place] [phone] Edwige Headley MD from Last 3 Months [...] Sign Reading Time Taken Comments Blood Pressure 115/68 07/27/2024 8:47 AM EDT Pulse 70 07/27/2024 8:47 AM EDT Temperature 36.8 ??C (98.2 ??F) 07/27/2024 8:47 AM ED T Respiratory Rate 16 07/27/2024 8:47 AM EDT Oxygen Saturation 98% 07/27/2024 8:47 AM EDT Inhaled Oxygen Concentration - - Weight 55.2 kg (121 lb 12.8 oz) 07/27/2024 8:47 AM EDT Height 152.4 cm (5') 07/27/2024 8:47 AM EDT Body Mass Index 23.79 07/27/2024 8:47 AM EDT Plan of Treatment Upcoming Encounters Date Type Department Care Team (Late st Contact Info) Description 08/24/2024 2:30 PM EDT Clinical Support [facility] [address] [place] [address] Maria Guadalupe Rodríguez RN [address] [place] [address] Health Maintenance Due Date Last Done Comments Eye Exam 1955 COVID-19 Vaccine ( season) 2024 07/20/2023 Depression Monitoring (PHQ-9) 04/29/2024 10/29/2023, 10/29/2023 Lipid Panel 08/29/2024 08/30/2023, 08/21/2022 Depression Screening 10/28/2024 10/29/2023, 10/29/19 SDOH Screening 10/28/2024 10/29/2023 Diabetes: Hemoglobin A1C 11/27/2024 025, 08/30/2023, 07/20/2023, Additional history exists Alcohol/Substance Use Screening 06/19/2025 06/19/2024 Diabetes: Foot Exam 06/19/2025 06/19/2024, 06/19/2024, 06/19/2024, Additional history exists Diabetes: Urine Protein Screening 07/18/2025 07/18/2024, 08/21/2022 Tobacco Screening 07/27/2025 07/27/2024 DTaP/Tdap/Td Vaccines (2 - Td or Tdap) [...] Procedure Name Priority Date/Time Associated Diagnosis Comments ALBUMIN, RANDOM URINE W/CREATININE Routine 07/18/2024 9:57 AM EST Type 2 diabetes mellitus with hyperglycemia, without long-term current use of insulin (CMS/HCC) T-SPOT(R).TB Routine 07/07/2024 9:23 AM EST Encounter [...] PANEL, STANDARD Routine 08/30/2023 10:36 AM EDT from Last 3 Months or Most Recently Relevant to Health Maintenance Results * Albumin, Random Urine W/Creatinine (07/18/2024 9:57 AM EST) Pathologist [facility] Creatinine, Urine 47.58 mg/dL [facility] Microalbumin Urine 13.0 mg/L [facility] Microalbum Creatinine Ratio Ur 27.3 <30 ug/mg cr [facility] Comment:Albumin/Creatinine R atio Reference Ranges: Normal: < 30 ug/mg creatinine Microalbuminuria: 30 - 300 ug/mg creatinineClinical Albuminuria: > 300 ug/mg creatinine Urine (Urine, Random) 07/18/2024 9:57 AM EST 07/18/2024 2:15 PM EST us Radha Renee MD LAB URINE ORDERABLES Final Result [facility] [address] [place] [phone] * T-SPOT??.TB (07/07/2024 9:23 AM EST) Pathologist [facility] T Spot TB Negative Negative [facility] Comment:A negative test resu lt does [...] aquantitative test. TS PANEL A 0 [facility] TS PANEL B 0 [facility] Negative Control Passed [facility] Positive Control Passed [facility] Comment:For additional infor [employer], please refer [email or web address](This link is being provided for informational/educational purposes only.)THIS TEST WAS PERFORMED AT:[employer] [id number] [place] [address]SVQXHUKVIRGINIA DAN MD,PHD 07/07/2024 9:23 AM EST 07/07/2024 1:55 PM EST us Edwige Headley MD LAB BLOOD ORDERABLES Final Re sult Performing Organization Address [facility] Co de Phone Number [facility] [address] [place] [phone] * Hepatitis C Antibody with Reflex to HCV, RNA, Quantitative, Real-Time PCR (07/07/2024 9:23 AM EST) Hepatitis C Antibody Nonreactive Nonreactive [facility] Comment:Antibodies to HCV no t detected; does not exclude early acuteHCV infection. Blood Venous blood specimen / Unknown 07/07/2024 9:23 AM EST 07/07/2024 1:55 PM EST us Radha Renee MD LAB BLOOD ORDERABLES Final Result Performing Organization Address City/[facility]/ZIP Co de Phone Number [facility] [address] [place] [address] [phone] * POCT SENAIT-14 Urine Drug Screen (06/20/2024 2:05 PM EST) Urine Urine specimen obtained by clean catch procedure / Unknown 06/20/2024 2:05 PM EST Narrative Maria Guadalupe Rodrígeuz RN - 06/20/2024 2:05 PM EST negative for THC, MOP, OXY, ANTON, MET, AMP, BZO, BAR, MTD, BUPG, TCA, MDMA, PCP, PPX. Lot# [id number] Exp: 04-22-25 Edwige Headley MD POINT OF CARE TEST ENTER/EDIT ORDERABLES Final Result * POCT glucose manually resulted (06/19/2024 2:34 PM EST) Only the most recent of2 resultswithin the time period is included. Glucose Blood, POC 113 60 - 200 mg/dL [employer] Lot # Comment:[id number] Lot# Expiration Date Comment:08/22/2024 Blood Capillary blood specimen / Unknown 06/19/2024 2:34 PM EST Radha Renee MD POINT OF CARE TEST ENTER/ED IT ORDERABLES Final Result * Vitamin D, 25-Hydroxy, Total, Immunoassay (05/31/2024 12:44 PM EST) Vitamin D 25-OH Total 33.6 >30 ng/mL [facility] Comment:Health Based Referen ce Values*< 20 ng/mL [id number] ng/mL Insufficient> 30 ng/mL Sufficient*Yessy MENDOZA. N [...] BLOOD ORDERABLES Final Result Performing Organization Address [facility]/ZIP Co de Phone Number [facility] [address] [place] [phone] * (ABNORMAL) Vitamin B12/Folate, Serum Panel (05/31/2024 12:44 PM EST) Vitamin B12 944(H) 200 - 900 pg/mL [facility] Comment:NORMAL 200-900 PG/M L INDETERMINATE 160-199 PG/ML DEFICIENT < 160 PG/ML Folate 11.9 > or = 4.0 ng/mL [facility] Comment:Reference Values:> o r = 4.0 [...] BLOOD ORDERABLES Final Result Performing Organization Address City/[facility] Co de Phone Number [facility] [address] [place] [phone] * TSH W/Reflex to FT4 (05/31/2024 12:44 PM EST) TSH reflex Free T4 1.02 0.32 - 4.0 uIU/mL [facility] Blood Venous blood specimen / Unknown 05/31/2024 12:44 PM EST 05/31/2024 2:20 PM EST us Radha Renee MD LAB BLOOD ORDERABLES Final Result Performing Organization Address [facility]/ZIP Co de Phone Number [facility] [address] [place] [phone] * (ABNORMAL) Vitamin B1 (05/31/2024 12:44 PM EST) Vitamin B1 41(A) 8 - 30 nmol/L [facility] Comment:Vitamin supplementat ion within 24 hours prior toblood draw may affect the accuracy of the results.This test was developed and its analytical performancecharacteristics have been determined by [employer] [place], [place]. It hasnot been cleared or approved by the U.S. Food and DrugAdministration. This assay has been validated pursuantto the CLIA regulations and is used for clinicalpurposes.THIS TEST WAS PERFORMED AT:[id number] [place] [address]GATHPQXVIRGINIA DAN MD,PHD Blood Venous blood specimen / Unknown 05/31/2024 12:44 PM EST 05/31/2024 2:20 PM EST us Radha Renee MD LAB BLOOD ORDERABLES Final Result Performing Organization Address [facility] Co de Phone Number [facility] [address] [place] [phone] * Magnesium (05/31/2024 12:44 PM EST) Only the most recent of2 resultswithin the time period is included. Magnesium 1.8 1.6 - 2.6 mg/dL [facility] Blood Venous blood specimen / Unknown 05/31/2024 12:44 PM EST 05/31/2024 2:20 PM EST us Radha Renee MD LAB BLOOD ORDERABLES Final Result Performing Organization Address City/[facility]/ZIP Co de Phone Number [facility] [address] [place] [phone] * (ABNORMAL) POCT HGB A1C (05/30/2024 1:42 PM EST) Hemoglobin A1C 6.9(A) 4.0 - 6.0 % QC Media Lot # [id number] Lot# Expiration Date [id number] Blood 05/30/2024 1:42 PM EST us Radha Renee MD POINT OF CARE TEST ENTER/ED IT ORDERABLES Final Result * (ABNORMAL) Urinalysis, Complete, with Reflex to Culture (05/16/2024 2:49 PM EST) [facility] Color Urine Yellow [facility] Appearance Urine Clear [facility] PH 5.0 5.0 - 9.0 [facility] Glucose Urine UA Negative Negative mg/dL [facility] Urine Blood Trace(A) Negative [facility] Specific [place] - Urine 1.010 1.005 - 1.025 [facility] Urine Protein Negative Neg-Trace mg/dL [facility] Urine Ketones Negative Negative mg/dL [facility] Nitrite Urine Negative Negative [facility] Leukocyte Esterase Urine Negative Negative [facility] RBC Urine 0-2 0 - 2 /HPF [facility] Urine WBC 0-5 0 - 5 /HPF [facility] Urine Squamous Epithelial Cell 0-2 0 - 2 /HPF [facility] Urine Bacteria None Seen None Seen [facility] Hyaline Casts, Urine 0-2 0 - 2 /LPF [facility] 05/16/2024 2:49 PM EST 05/16/2024 2:56 PM EST Narrative [facility] - 05/16/2024 3:05 PM EST [id number], Clean Catch us Generic External Data Provider LAB URINE ORDERAB LES Final Result [facility] [address] [place] [address] [phone] * (ABNORMAL) VENOUS BLOOD GAS (05/16/2024 1:17 PM EST) [facility] VBG pH 7.37 7.32 - 7.43 [facility] Comment:METER #: [id number] additional_comment: Tay arnold VBG PCO2 53 mmHg [facility] Comment:METER #: [id number] additional_comment: Cb clayton VBG PO2 47 mmHg [facility] Comment:METER #: [id number] additional_comment: Cb clayton VBG Base Excess 4.7 mmol/L [facility] Comment:METER #: [id number] additional_comment: Tay arnold VBG HCO3 31(H) 22 - 26 mmol/L [facility] Comment:METER #: [id number] additional_comment: Tay arnold O2 Sat, Darren 72.0 % [facility] Comment:METER #: [id number] additional_comment: Tay arnold 05/16/2024 1:17 PM EST 05/16/2024 1:23 PM EST us Generic External Data Provider LAB BLOOD ORDERAB LES Final Result [facility] [address] [place] [phone] * High Sensitivity Troponin I (05/16/2024 1:10 PM EST) [facility] TROPONIN I HIGH SENSITIVITY <2.7 <3.5 - 17.0 ng/L [facility] Comment:The Goldstein high sens itivity Troponin-I results should beused in conjunction with other diagnostic information suchas ECG, clinical observations and information, and patientsymptoms to aid in the diagnosis of MS. 05/16/2024 1:1 0 PM EST 05/16/2024 1:15 PM EST us Generic External Data Provider LAB BLOOD ORDERAB LES Final Result [facility] [address] [place] [address] [phone] * Procalcitonin (05/16/2024 1:10 PM EST) Procalcitonin 0.05 ng/mL [facility] Comment: Procalcitonin (PCT) Reference Range:PCT [...] in interpreting PCT results fromdifferent laboratories and methodologies.References:[employer]/Society of CriticalCare Medicine Consensus Conference Committee. ??Definitionsfor sepsis and organ failure and guidelines for the use ofinnovative therapies in sepsis. ??Crit Care Gli8472;20(6):864-874.Adrián B, Rodney KL, Jennyfer H, et al. ??Calcitoninprecursors are reliable markers of sepsis in a medicalintensive care unit. ??Crit Care Med 2000;363:600-607.Terese S, Solange K, Jaylyn C, et al. ??Diagnosticvalue of procalcitonin, interleukin-6 and interleukin-8 incritically ill patients admitted with suspected sepsis. ??AMJ Respir Crit Care Med 2001;164:396-402.US Food and Drug Administration. ??510(k) substantialequivalence determination decision summary for [facility].[email or web address].pdf.Published May 2004. ??Accessed October 2016. 05/16/2024 1:10 PM EST 05/16/2024 1:15 PM EST us Generic External Data Provider LAB BLOOD ORDERAB LES Final Result [facility] [address] [place], [place] [phone] * (ABNORMAL) CBC auto differential (05/16/2024 1:10 PM EST) White Blood Count 8.0 4.8 - 10.8 X10*3/uL [facility] Red Blood Count 4.33 4.20 - 5.50 X10*6/uL [facility] Hemoglobin 13.3 12.0 - 16.0 g/dl [facility] Hematocrit 39.3 37.0 - 47.0 % [facility] Mean Corpuscular Volume 90.8 80.0 - 98.0 fL [facility] Mean Corpuscular Hemoglobin 30.7 27.0 - 33.0 pg [facility] Mean Corpuscular HGB Conc 33.8 31.0 - 35.0 g/dl [facility] Red Cell Distribution Width 14.5 11.0 - 16.0 % [facility] Platelet Count 184 160 - 400 X10*3/uL [facility] Mean Platelet Volume 10.4 9.4 - 12.3 fL [facility] Neutrophils Percent Auto 50.6 45 - 73 % [facility] Imm Gran Pct Auto 0.5(H) 0.0 - 0.4 % [facility] Lymphocytes Percent Auto 38.7 20 - 40 % [facility] Monocytes Percent Auto 7.9 2 - 11 % [facility] Eosinophils Percent Auto 2.0 0 - 4 % [facility] Basophils Percent Auto 0.3 0 - 2 % [facility] NRBC Pct Auto 0.0 0.0 - 0.2 /100WBC [facility] Neutrophils Absolute Auto 4.0 2.0 - 8.3 x10*3/uL [facility] Imm Gran Abs Auto 0.04(H) 0.00 - 0.03 X10*3/uL [facility] Lymphocytes Absolute Auto 3.1 1.2 - 4.9 X10*3/uL [facility] Monocytes Absolute Auto 0.6 0.1 - 1.2 X10*3/uL [facility] Eosinophils Absolute Auto 0.2 0.0 - 0.4 X10*3/uL [facility] Basophils Absolute Auto 0.0 0.0 - 0.2 X10*3/uL [facility] NRBC Abs Auto 0.000 0.0 - 0.012 X10*3/uL [facility] 05/16/2024 1:10 PM EST 05/16/2024 1:15 PM EST Generic External Data Provider LAB BLOOD ORDERAB LES Final Result Performing Organization Address [facility] Co de Phone Number [facility] [address] [place] [phone] * C-reactive Protein (05/16/2024 1:10 PM EST) C Reactive Protein <0.10 < or = 0.50 mg/dL [facility] 05/16/2024 1:10 PM EST 05/16/2024 1:15 PM EST Generic External Data Provider LAB BLOOD ORDERAB LES Final Result Performing Organization Address [facility]/ZIP Co de Phone Number [facility] [address] [place] [address] [phone] * B Type Natriuretic Peptide (BNP) (05/16/2024 1:10 PM EST) B Type Natriuretic Peptide <10 <100 pg/mL [facility] Comment:For those patients w ho are being treated with Natrecor(nesiritide, recombinant BNP), BNP testing should beperformed at least two hours post treatment in order toensure that only endogenous levels of BNP are detected. 05/16/2024 1:10 PM EST 05/16/2024 1:15 PM EST us Generic External Data Provider LAB BLOOD ORDERAB LES Final Result Performing Organization Address [facility] Co de Phone Number [facility] [address] [place] [address] [phone] * Lipase (05/16/2024 1:10 PM EST) Lipase 21 8 - 78 U/L [facility] 05/16/2024 1:10 PM EST 05/16/2024 1:15 PM EST Generic External Data Provider LAB BLOOD ORDERAB LES Final Result Performing Organization Address [facility] de Phone Number [facility] [address] [place] [address] [phone] * (ABNORMAL) Lactic Acid (05/16/2024 1:10 PM EST) Pathologist [facility] Lactic Acid 3.0(HH) 0.5 - 2.0 mmol/L [facility] Comment:Critical value for L ACTIC: Results called to and read backby: CHARLA Person calling: CHERRIE Date: 05/16/24 Time:1347 05/16/2024 1:10 PM EST 05/16/2024 1:15 PM EST Generic External Data Provider LAB BLOOD ORDERAB LES Final Result Performing Organization Address [facility] Co de Phone Number [facility] [address] [place] [address] [phone] * Hepatic Function Panel (05/16/2024 1:10 PM EST) Bilirubin, Total 0.4 0.0 - 1.0 mg/dL [facility] Bilirubin, Direct 0.2 0.0 - 0.5 mg/dL [facility] Aspartate Amino Transferase 28 5 - 31 U/L [facility] Alanine Aminotransferase 31 0 - 31 U/L [facility] Total Protein 7.4 6.5 - 8.0 g/dL [facility] Albumin Level 4.0 3.5 - 5.0 g/dL [facility] Alkaline Phosphatase 66 39 - 117 U/L [facility] 05/16/2024 1:10 PM EST 05/16/2024 1:15 PM EST us Generic External Data Provider LAB BLOOD ORDERAB LES Final Result [facility] [address] [place] [phone] * (ABNORMAL) Basic Metabolic Panel (05/16/2024 1:10 PM EST) Sodium 142 135 - 145 mmol/L [facility] Potassium 3.9 3.3 - 5.1 mmol/L [facility] Chloride 108 96 - 108 mmol/L [facility] Carbon Dioxide 26 22 - 29 mmol/L [facility] Anion Gap 12 12 - 20 [facility] Urea Nitrogen (BUN) 12 9 - 16 mg/dL [facility] Creatinine, Serum 0.83 0.5 - 1.4 mg/dL [facility] Creatinine Clr Calc Pharmacy 49.6 [facility] Comment:Provided height and weight: 165.1 cm,56.3 kg.eGFR (calculated from the MDRD study equation) and eCrCl(calculated from the Cockcroft-Gault equation) are based ondifferent parameters and may not yield comparable results.If eCrCl result is absurd, please check patient'sheight/weight. Estimated Glomerular Filt Rate >60 [facility] Comment:Chronic Kidney Disea se: Estimated GFR < 60 mL/min/1.57h6Ckfztm Kidney Disease: Estimated GFR < 15 mL/min/1.73m2 Glucose 149(H) 60 - 115 mg/dL [facility] Calcium 9.1 8.4 - 10.2 mg/dL [facility] 05/16/2024 1:10 PM EST 05/16/2024 1:15 PM EST Generic External Data Provider LAB BLOOD ORDERAB LES Final Result Performing Organization Address [facility] de Phone Number [facility] [address] [place] [address] [phone] * SARS-CoV-2 RNA, Influenza A/B, and RSV RNA, Ql NAAT (05/16/2024 1:09 PM EST) Influenza A PCR NEGATIVE Negative [facility] Influenza B PCR NEGATIVE Negative [facility] Resp Syncy Virus RNA Qual PCR NEGATIVE Negative [facility] SARS COV2 PCR NEGATIVE Negative [facility] Comment:All test results mus t [...] use by authorized laboratories.Testing performed on the [employer] GeneXpert utilizingreal-time RT-PCR.All SARS CoV2 and positive influenza A/B results arereported to [facility]. 05/16/2024 1:09 PM EST 05/16/2024 1:15 PM EST Generic External Data Provider LAB MICROBIOLOGY - GENERAL ORDERABLES Final Result Performing Organization Address [facility] Co de Phone Number [facility] [address] [place] [address] [phone] * Blood Culture (Second) (05/16/2024 12:52 PM EST) Blood Venous blood specimen / Unknown 05/16/2024 12:52 PM EST 05/16/2024 1:33 PM EST Comment:Blood Narrative [facility] - 05/16/2024 1:33 PM EST Multiple attempts for 2nd set of BCs. Unable to obtain at this time. aware. Blood Culture (Second) Test not performed CANCELED BY PROVIDER Specimen Source: Blood us Generic External Data Provider LAB MICROBIOLOGY - GENERAL ORDERABLES Final Result [facility] [address] [place] [phone] * XR Chest 1 View (05/16/2024 12:50 PM EST) Anatomical Region Laterality Modality Chest Radiographic Patricia ging 05/16/2024 12:5 0 PM EST Narrative 05/16/2024 1:24 PM EST ? [facility] ?[address] ?[place] [address] ?XRay Report ? Signed ? Patient: Puri Hoffmann,Blasina ?MR#: M ?? [id number] ? : 1945 ?Acct:[id number] ? Age/Sex: 78 / F ?ADM Date: 05/16/24 ? Loc: HO.ED ? Attending Dr: ? Ordering Physician: Nandini Dumont DO ?? Date of Service: 05/16/24 ?? Procedure(s): XR chest 1V ?? Accession Number(s): [id number] ? cc: Nandini Dumont DO; Edwige Headley [...] chest examination. ? Electronically signed by: ??Luke Milagros MD ??05/16/2024 01:21 PM EST RP ? Dictated By: ?Milagros,Luke S MD ? Signed By: ?<Electronically signed by Luke S Milagros, MD in OV> ?05/16/24 1321 ? DD/ 1250 ? TD/TT: 05/16/24 1255 ? Transportation Escort: MSM ? Procedure Note Drea, Image - 05/16/[address] [address] XRay Report Signed Patient: Arthur Holguin#: M [id number] : 6Acct:[id number] Age/Sex: 78 / FADM Date: 05/16/24 Loc: .ED Attending Dr: Ordering Physician: Nandini Dumont DO Date of Service: 05/16/24 Procedure(s): XR chest 1V Accession Number(s): [id number] cc: Nandini Dumont DO; Edwige Headley MD EXAMINATION: XR CHEST CLINICAL INFORMATION: cough, fever COMPARISON: Chest 03/16/2024 TECHNIQUE: Frontal view of the chest was obtained. FINDINGS: No significant abnormality is noted involving the heart, lungs, mediastinum, bony thorax or soft tissues. XR/XR chest 1V IMPRESSION: Unremarkable chest examination. Electronically signed by: Luke Linares MD 05/16/2024 01:21 PM [facility] Dictated By: Luke Linares MD Signed By: <Electronically signed by Luke Linares MD in OV> 05/16/24 1321 DD/ 1250 TD/TT: 05/16/24 1255 Transportation Escort: [facility] [place] [facility] External Provider IMG XR PROCEDURES Final Result * Lipid Panel, Standard (08/30/2023 10:36 AM EDT) Triglycerides 39 <150 mg/dL [facility] Comment:Desirable Triglyceri de: less than 150 mg/dLBorderline High Triglyceride 150-199 mg/dLHigh Triglyceride: 200-499 mg/dLVery High Triglyceride: greater than or equal to 5OO mg/dL Cholesterol 116 <200 mg/dL [facility] Comment:Desirable Cholestero l: less than 200 mg/dLBorderline High Cholesterol: 200-239 mg/dLHigh Cholesterol: greater than 239 mg/dL LDL Cholesterol Calculated 35 <100 mg/dL [facility] Comment:Desirable LDL: less than 100 mg/dLNear Optimal/Above Optimal LDL: 110- 129 mg/dLBorderline High LDL: 130-159 mg/dLHigh LDL: 160-189 mg/dLVery High LDL: greater than or equal to 190 mg/dL HDL Cholesterol 74 >40 mg/dL [facility] Comment:Desirable HDL: great er than 40 mg/dL Note: This HDL assay may give artificially low results in patients with liver disease. 08/30/2023 10:3 6 AM EDT 08/30/2023 10:41 AM EDT us Generic External Data Provider LAB BLOOD ORDERAB LES Final Result [facility] [address] [place] [address] [phone] from Last 3 Months or Most Recently Relevant to Health Maintenance [facility] STAND[facility] Care Teams Gaming Cage Worker Relationship Specialty Start Date End Date Edwige Headley MD [address] [place] [phone] PCP - General Family Medicine 08/21/22
--- OUTSIDE RECORDS SUMMARY | 2024-08-01 12:01 | XMS_ITS | Encounter Summary ---
Author Organization [employer] Address [address] [place] [address] Care Team Providers Care Barbering Instructor Name Role Phone Edwige Headley MD Primary Care Provider [phone] Reason for Visit * Reason Onset Date Comments Appointment Request 04/06/2024 Encounter Details Date Type Department Care Team ([facility] st Contact Info) Description 04/06/2024 Telephone [facility] [address] [place] [address] Edwige Headley MD [address] [place] [address] Appointment Request Social History Tobacco Use Types [...] somewhere else. Contac pt to r/s at [phone] documented in this encounter Plan of Treatment Upcoming Encounters Date Type Department Care Team (Late st Contact Info) Description 08/24/2024 2:30 PM EDT Clinical Support [facility] [address] [place] [address] Maria Guadalupe Rodríguez, AC [address] [place] [address] documented as of this encounter Goals Goal [...] documented as of this encounter Care Teams Barbering Instructor Relationship Specialty Start Date End Date Edwige Headley MD [address] [place] [address] PCP - General Family Medicine 08/21/22 documented as of this encounter
--- OUTSIDE RECORDS SUMMARY | 2024-08-01 12:02 | XMS_ITS | Encounter Summary ---
Author Organization [employer] Address [address] [place] [address] Care Team Providers Care Calibration Engineer Name Role Phone Edwige Headley MD Primary Care Provider [phone] Encounter Details Date Type Department Care Team ([facility] st Contact Info) Description 10/22/2022 Telephone [facility] [address] [place], [place] [phone] Edwige Headley MD [address] [place] [address] Social History Tobacco Use Types Packs/Day Years [...] a call in regards to message above. (Georgian speaker) * Telephone Encounter - Inez Martinez - 10/22/2022 3:31 PM EDT TC from pt requesting help to schedule her gastro appt . Please call to clarify . documented in this encounter Plan of Treatment Upcoming Encounters Date Type Department Care Team (Late st Contact Info) Description 08/24/2024 2:30 PM EDT Clinical Support [facility] MED & PEDS [address] [place] [address] Maria Guadalupe Rodríguez, RN [address] [place] [address] documented as of this encounter Goals Goal [...] documented as of this encounter Care Teams Calibration Engineer Relationship Specialty Start Date End Date Edwige Headley MD [address] [place] [address] PCP - General Family Medicine 08/21/22 documented as of this encounter
--- OUTSIDE RECORDS SUMMARY | 2024-08-01 12:02 | XMS_ITS | Encounter Summary ---
Author Organization [employer] [facility] Address [address] [place] [address] 7 [place] [address] Care Team Providers Care Smart Energy Specialist Name Role Phone Edwige Headley MD Primary Care Provider [phone] Reason for Referral * Consultation (Routine) - Pending Review Specialty Diagnoses / Procedures Referred By Contac t Referred To Contact Neurology Diagnoses Headache, common migraine, intractable Radha Renee MD [address] [place] [address] Phone: tel: fax: Referral ID Status Reason Start Date Expiration Date Visits Requested Visits Authorized [id number] Pending Review Specialty Services Required 07/27/2024 07/27/2025 1 1 * Consultation (Routine) - Closed Specialty Diagnoses / Procedures Referred By Fabian isaacs Referred To Contact Occupational Therapy Diagnoses Left hand pain Radha Renee MD [address] [place] [address] Phone: tel: fax: [facility] Physical Therapy [address] [place] [address] Phone: tel: fax: Referral ID Status Reason Start Date Expiration Date V isits Requested Visits Authorized [id number] Closed Specialty Services Required 07/27/2024 07/27/2025 1 1 Reason for Visit * Reason Comments Multiple complaints Encounter Details Date Type Department Care Team ([facility] st Contact Info) Description 07/27/2024 9:30 AM EDT Office Visit [facility] [address] [place], [place] [phone] Radha Renee MD [address] [place], [place] Left hand pain (Primary Dx); Meralgia paresthetica of left side; Headache, common migraine, intractable Social History Tobacco Use Types Packs/Day Years [...] the past 12 months, has t he [employer], gas, oil or water company threatened to [...] Mass Index 23.79 07/27/2024 8:47 AM EDT documented in this encounter Progress Notes * Radha Renee MD - 07/27/2024 9:30 AM EDT Subjective Patient ID: Ed Hoffmann is a 79 y.o. female who presents for Multiple complaints. HPI 1) 2 months history of left thigh pain on and off. Exacerbated by walking. Patient is unable to describe how the pain feels like. Sometimes feels like a sharp pain. And can last up to 24 hours. Was not in pain during the evaluation today. No reported skin rash. 2) history of headache on and off. Patient is requesting to get a refill of Fioricet. She would like to see another neurologist for better control of her headaches 3) history of left hand pain associated with decreased range of motion and morning stiffness. Mostly she feels she is unable to completely make a fist for the last 2 to 3 months. Patient Active Problem List Diagnosis Diabetes mellitus due to underlying condition with hyperglycemia, without long- term current use of insulin ([facility]) Urinary incontinence Moderate persistent asthma Alzheimer's dementia ([facility]) Chronic diastolic heart failure ([facility]) Vertigo Coronary artery disease of [place] heart with stable angina pectoris ([facility]) CKD (chronic kidney disease), stage II Gastroesophageal reflux disease Type 2 diabetes mellitus with hyperglycemia, without long-term current use of insulin ([facility]) Hypertension Headache, common migraine, intractable Chronically dry eyes, bilateral Generalized anxiety disorder Breast pain, left Periumbilical abdominal pain Ingrown fingernail Anxiety Rectal tenesmus Vaginal itching Dysphagia Fibromyalgia Chronic left ear pain Hearing loss Current Outpatient Medications on File Prior to Visit Medication Sig Dispense Refill albuterol (2.5 MG/3ML) 0.083% nebulizer solution Take 3 mL (2.5 mg) by nebulization every 4 (four) hours if needed for wheezing. 75 mL 3 albuterol 108 (90 Base) MCG/ACT inhaler Inhale 2 puffs every 4 (four) hours if needed for wheezing.18 g 5 amLODIPine (Norvasc) 5 MG tablet Take 1 tablet (5 mg) by mouth Once per day. 30 tablet 11 Aspirin Low Dose 81 MG EC tablet TAKE 1 TABLET BY MOUTH EVERY MORNING 90 tablet 1 Blood Glucose Monitoring Suppl (ONE [email or web address] ULTRA 2) w/Device kit 1 kit in the morning. Please dispense glucose monitor that is covered by patients insurances. Substitute as needed. 1 kit 0 Blood Pressure kit 1 Units in the morning. 1 kit 0 calcium carbonate 1500 (600 Ca) MG tablet TAKE 1 TABLET BY MOUTH TWICE DAILY IN THE MORNING AND IN THE EVENING WITH FOOD 180 tablet 1 celecoxib (CeleBREX) 100 MG capsule Take 1 capsule (100 mg) by mouth 2 times daily. 60 capsule 1 cetirizine (ZyrTEC) 10 MG tablet Take 1 tablet (10 mg) by mouth in the morning. 30 tablet 0 cyclobenzaprine (Flexeril) 10 MG tablet Take 1 tablet (10 mg) by mouth 3 times daily for 10 days. 30 tablet 0 D3 Super Strength 50 MCG (2000 UT) capsule TAKE 1 CAPSULE BY MOUTH EVERY DAY FOR 3 MONTHS Diclofenac Sodium 1 % gel APPLY 2 GRAMS TOPICALLY TO AFFECTED AREA(S) THREE TIMES DAILY [id number] g 1 estradiol (Estrace) 0.1 MG/GM vaginal cream Insert 1 g into the vagina in the morning. 42.5 g 0 famotidine (Pepcid) 40 MG tablet TAKE 1 TABLET BY MOUTH AT BEDTIME 90 tablet 1 gabapentin (Neurontin) 300 MG capsule TAKE 1 CAPSULE BY MOUTH THREE TIMES DAILY 90 capsule 0 glucose blood test strip Use as directed 3 times daily 100 each 11 hydrocortisone 1 % ointment Apply topically 2 times daily. 30 g 0 Lanc[employer] Devices (Autolet) lancing device 1 each by Other route in the morning. Please dispense glucose monitor that is covered by patients insurances. Substitute as needed. 1 each 0 Lancets (OneTouch Delica Plus [id number]) misc 1 Units in the morning. Please dispense glucose monitor that is covered by patients insurances. Substitute as needed. 100 each 11 levalbuterol (Xopenex) 1.25 MG/3ML nebulizer solution INHALE 1 AMPULE USING A NEBULIZER EVERY 4 TO 6 HOURS NEEDED SHORTNESS OF BREATH OR FOR WHEEZING lidocaine (Lidoderm) 5 % patch APPLY 1 PATCH TOPICALLY LEAVE ON FOR 12 HOURS AND OFF FOR 12 HOURS DIRECTED BY 30 patch 5 losartan (Cozaar) 25 MG tablet TAKE 1 TABLET BY MOUTH EVERY MORNING 90 tablet 1 memantine (Namenda) 5 MG tablet TAKE 1 TABLET BY MOUTH TWICE DAILY IN THE MORNING AND IN THE EVENING 60 tablet 0 metFORMIN (Glucophage) 500 MG tablet TAKE 1 TABLET BY MOUTH THREE TIMES DAILY IN THE MORNING, AT NOON, AND IN THE EVENING 270 tablet 1 montelukast (Singulair) 10 MG tablet TAKE 1 TABLET BY MOUTH AT BEDTIME 90 tablet 1 Multiple Vitamin (Multivitamin) tablet TAKE 1 TABLET BY MOUTH EVERY MORNING 90 tablet 1 omeprazole (PriLOSEC) [address] capsule TAKE 1 CAPSULE BY MOUTH ONCE DAILY FOR 4 WEEKS rosuvastatin (Crestor) 20 MG tablet TAKE 1 TABLET BY MOUTH AT BEDTIME 90 tablet 1 sucralfate (Carafate) 1 GM/10ML suspension TAKE 10 ML BY MOUTH EVERY 8 HOURS NEEDED WITH FOOD 900 mL 1 traMADol (Ultram) 50 MG tablet Take 1 tablet (50 mg) by mouth every 12 (twelve) hours if needed forsevere pain. 42 tablet 0 Trelegy Ellipta 200-62.5-25 MCG/ACT aerosol powder Inhale 1 puff Once per day. VITAMIN E PO Take 1 tablet by mouth in the morning. [DISCONTINUED] calcium carbonate 1500 (600 Ca) MG tablet TAKE 1 TABLET BY MOUTH TWICE DAILY IN THE MORNING AND IN THE EVENING WITH FOOD 180 tablet 1 [DISCONTINUED] metFORMIN (Glucophage) 500 MG tablet TAKE 1 TABLET BY MOUTH THREE TIMES DAILY IN THEMORNING, AT NOON, AND IN THE EVENING 270 tablet 1 [DISCONTINUED] montelukast (Singulair) 10 MG tablet TAKE 1 TABLET BY MOUTH AT BEDTIME 90 tablet 1 [DISCONTINUED] Multiple Vitamin (Multivitamin) tablet TAKE 1 TABLET BY MOUTH EVERY MORNING 90 tablet 1 [DISCONTINUED] rosuvastatin (Crestor) 20 MG tablet TAKE 1 TABLET BY MOUTH AT BEDTIME 90 tablet 1 No current facility-administered medications on file prior to visit. Allergies Allergen Reactions Lyrica [Pregabalin] Review of Systems Constitutional: Negative for appetite change, chills and diaphoresis. Eyes: Negative for pain, redness and itching. Gastrointestinal: Negative for abdominal pain, anal bleeding and blood in stool. Musculoskeletal: Positive for arthralgias and myalgias. Objective BP 115/68 (BP Location: Left arm, Patient Position: Sitting, BP Cuff Size: Adult) Pulse 70 Temp98.2 ??F (36.8 ??C) (Oral) Resp 16 Ht 5' (1.524 m) Wt 121 lb 12.8 oz (55.2 kg) SpO2 98% BMI 23.79 kg/m?? Physical Exam Constitutional: General: She is not in acute distress. Appearance: Normal appearance. She is not ill-appearing, toxic-appearing or diaphoretic. Cardiovascular: Rate and Rhythm: Normal rate. Pulmonary: Effort: Pulmonary effort is normal. Musculoskeletal: Left hand: Decreased range of motion. Comments: Patient is unable to make a fist. No sign of inflammation of the MCPs. No tenderness to palpation. Neurological: General: No focal deficit present. Mental Status: She is alert. Assessment/Plan Diagnoses and all orders for this visit: Left hand pain Comments: Possible osteoarthritis Patient will be contacted with the results of the x-ray. Orders: - Diclofenac Sodium 1 % gel; To apply to the affected area 3 times a day - XR Hand 3+ Views Left; Future - Referral to Occupational Therapy; Future Meralgia paresthetica of left side Comments: Avoid wearing tight fitting clothes Headache, common migraine, intractable - Referral to Neurology; Future - epqxjvkauh-bikfipjdeduwz-iexgicxd 50-325-40 MG tablet; 1 tablet a day as needed. Not to use this medication more than 3 times a week documented in this encounter Plan of Treatment Upcoming Encounters Date Type Department Care Team ([facility] st Contact Info) Description 08/24/2024 2:30 PM EDT Clinical Support [facility] MED [facility] PED[facility] [address] [place] [address] Maria Guadalupe Rodríguez, RN [address] [place] [address] Scheduled Orders Name Type Priority Associated Diagnoses Orde r Schedule XR Hand 3+ Views Left Imaging Routine Left hand pain Expected: 07/27/2024, Expires: 07/27/2025 Scheduled Referrals Name Type Priority Associated Diagnoses Orde r Schedule Referral to Occupational Therapy Outpatient Referral Routine Left hand pain Expected: 07/27/2024 (Approximate), Expires: 07/27/2025 Referral to Neurology Outpatient Referral Routine Headache, common migraine, intractable Expected: 07/27/2024 (Approximate), Expires: 07/27/2025 documented as of this encounter Goals Goal Patient Goal Type Associated Problems Recent Progress Patient-Stated? Author Use the inhalers as prescribed by provider; Flovent HFA scheduled and albuterol as needed General No Marcel Garcia, PharmD Take your medication every day Lifestyle No Marcel Garcia PharmD documented as of this encounter Visit Diagnoses Diagnosis Left hand pain- Primary Pain in soft tissues of limb Meralgia paresthetica of left side Headache, common migraine, intractable Migraine without aura, with intractable migraine, so stated, without mention of status migrainosus documented in this encounter Additional Health Concerns Assessment Noted Time PHQ-9 Depression Total Score: 10 024 12:52 PM EDT documented as of this encounter Care Teams Smart Energy Specialist Relationship Specialty Start Date End Date Edwige Headley MD [address] [place] [phone] PCP - General Family Medicine 08/21/22 documented as of this encounter
--- OUTSIDE RECORDS SUMMARY | 2024-08-01 12:02 | XMS_ITS | Encounter Summary ---
Author Organization [employer] Address [address] 7[address] [place] [address] Care Team Providers Care Advertising Consultant Name Role Phone Edwige Headley MD Primary Care Provider [phone] Reason for Visit * Reason Onset Date Comments Appointment Request 07/19/2024 Encounter Details Date Type Department Care Team ([facility] st Contact Info) Description 07/19/2024 Telephone C [facility] [address] [place] [address] Nina Clemons MD 505 [place] [address] Appointment Request Social History Tobacco Use Types [...] Telephone Encounter - Zoë Dorantes RN - 07/20/2024 9:57 AM EST Pt presented to [facility] looking to be seen today by a different provider as appointment needed to be rescheduled as provider out. Advised she can be booked for Same Day Care today in the afternoon. Pt declines as she has other commitments this afternoon. Pt requesting appointment on 07/26/24, 07/27/24, or 07/28/24. Pt rescheduled from 07/20/24 to 07/27/[address] Renee at 9:30 AM. * Telephone Encounter - Michelle Meeks - 07/19/2024 3:47 PM EST Tc from pt returning phone call. Gabonese * Telephone Encounter - Viviana Sellers RN - 07/19/2024 3:23 PM EST TC to pt using decorative engraver apprentice services. No answer. Voicemail left informing pt of cancellationof appointment 07/20/24 due to provider request, and instructing pt to call office to reschedule or utilize walk in clinic at [facility] if cannot wait for rescheduled appointment. documented in this encounter Plan of Treatment Upcoming Encounters Date Type Department Care Team (Late st Contact Info) Description 08/24/2024 2:30 PM EDT Clinical Support [facility] MED & PEDS 505 [place] [address] Maria Guadalupe Rodríguez, RN 505 [place], [place] documented as of this encounter Goals Goal Patient Goal Type Associated Problems Recent Progress Patient-Stated? Author Use the inhalers as prescribed by provider; Flovent HFA scheduled and albuterol as needed General No Marcel Garcia, PharmD Take your medication every day Lifestyle No Marcel Gracia, PharmD documented as of this encounter Visit Diagnoses Not on filedocumented in this encounter Additional Health Concerns Assessment Noted Time PHQ-9 Depression Total Score: 10 024 12:52 PM EDT documented as of this encounter Care Teams Advertising Consultant Relationship Specialty Start Date End Date Edwige Headley MD [address] [place] [address] PCP - General Family Medicine 08/21/22 documented as of this encounter
--- OUTSIDE RECORDS SUMMARY | 2024-08-01 12:02 | XMS_ITS | Encounter Summary ---
Author Organization [employer] Address [address] [facility] 7t [place] [address] Care Team Providers Care Police Judge Name Role Phone Edwige Headley MD Primary Care Provider [phone] Encounter Details Date Type Department Care Team ([facility] Contact Info) Description 11/03/2022 Abstract [facility] Information Management [address] [place] [address] Edwige Headley MD 505 [place] [address] Social History Tobacco Use Types Packs/Day Years [...] Upcoming Encounters Date Type Department Care Team ([facility] Contact Info) Description 08/24/2024 2:30 PM EDT Clinical Support [facility]C MED & PEDS 505 [place] [address] Maria Guadalupe Rodríguez RN 505 [place] [address] documented as of this encounter Goals Goal [...] documented as of this encounter Care Teams Police Judge Relationship Specialty Start Date End Date Edwige Headley MD 230 [place] [address] PCP - General Family Medicine 08/21/22 documented as of this encounter
--- OUTSIDE RECORDS SUMMARY | 2024-08-01 12:02 | XMS_ITS | Data Portability ---
Author Organization [employer] [facility] [place] [facility] Address [address] [place] [id number] Care Team Providers Care Traffic Control Specialist Name Role Phone HIM [facility] OTHER [facility] OTHER Assessment Encounter Date Assessment Date Assessment LastModified by Organization Details LastModified Time 10/13/2023 10/13/2023 I have reviewed and agree with the assessment and plan as documented by the quality control projectionist. I provided real-time medical direction for this [...] one 1 % topical cream 2023 024 [facility], [address] [place] [address], [id number], 14:48:38 Patient TargetsNo targets recorded. Patient InstructionsNo [...] Not Available Not Available No t Available TapactiveTouch Ultra Test strips TEST BLOOD SUGAR EVERY [...] Updated DateTime 4 99 % 99 % 65365.6 16 g 16 /min 98.1 [degF] 86 /min 138 mm[Hg] 90 mm[Hg] Not Available Remember The Member - production 4 18:14:31 Social History None recorded. Functional Status None recorded. Mental Status None recorded. Family History Nothing Reported. Medical History No medical history recorded. Gynecological HistoryNo gynecological history recorded. Obstetrics History GPAL:G 0 P 0 0 0 0 Past Encounters Encounter ID Performer Location Encounter Start Date Encounter Closed Date Diagnosis/Indication Diagnosis SNOMED-CT Code Diagnosis ICD10 Code Diagnosis Note [id number] Rita Haile MD Main - [facility] [address] [place] [address] 10/13/2023 18:14:24 10/14/2023 10:34:19 Contact dermatitis 70772629 L25.9 Health Concerns Section Related Observation LastModified by Organization Detai ls LastModified Time None Recorded Concern Status LastModified by Organization Details LastModified Time None Recorded Advance Directives Directive None Recorded Payers Encounter Date Sequence Insurance Name Policy Number Policy Sifuentes Covered Member ID Sifuentes Member ID Guarantor Name 10/13/2023 1 [facility] - DOS ON OR AFTER 2022 - DUAL ELIGIBLE - DETENTION OPTIONS AND ONE CARE (MEDICARE REPLACEMENT/ADV ANTAGE - HMO) Ed Hoffmann [id number] Ed Hoffmann Notes Date Note Type Note [...] .................... .................... .................... .................... .................... .................... . Electrical/Instrument Technician Note From Michael Nielson: Pt co rash/redness [...] . Disposition: Fulfilled Rita Haile MD [address] [facility], [place], [address], [employer] ([employer] - [employer] 10/13/2023 19:19:35 OBGyn Episode No OBEpisode recorded.
--- OUTSIDE RECORDS SUMMARY | 2024-08-01 12:02 | XMS_ITS | Encounter Summary ---
Author Organization [employer] Address [address] [place] [address] Care Team Providers Care Cosmetician Apprentice Name Role Phone Edwige Headley MD Primary Care Provider [phone] Reason for Visit * Reason Comments Med Refill Encounter Details Date Type Department Care Team ([facility] st Contact Info) Description 08/13/2023 Refill [facility] MED & PEDS 505 [place], [place] [phone] Edwige Headley MD 505 [place] [address] Social History Tobacco Use Types Packs/Day Years [...] Description 08/24/2024 2:30 PM EDT Clinical Support [facility] MED & PEDS 505 [place] [address] Maria Guadalupe Rodríguez, RN 505 [place] [address] documented as of this encounter Goals Goal [...] documented as of this encounter Care Teams Cosmetician Apprentice Relationship Specialty Start Date End Date Edwige Headley MD 230 [place] [address] PCP - General Family Medicine 08/21/22 documented as of this encounter
--- OUTSIDE RECORDS SUMMARY | 2024-08-01 12:02 | XMS_ITS | Encounter Summary ---
Author Organization [employer] Address [address] 7t [place] [address] Care Team Providers Care Powder Nipper Name Role Phone Edwige Headley MD Primary Care Provider [phone] Reason for Visit * Reason Onset Date Comments Nurse Triage 07/17/2024 Encounter Details Date Type Department Care Team ([facility] st Contact Info) Description 07/17/2024 Telephone [facility] MEDICINE 230 [place] [address] Edwige Headley MD 505 [place] [address] Nurse Triage Social History Tobacco Use Types [...] Center 07/20/2024 10:45 AM Nina Clemons MD [facility] 08/24/2024 2:30 PM Maria Guadalupe Rodríguez RN [facility] Insurance verified as active per Real Time Eligibility in [facility]. Video visit offer not recorded Positive [...] RN - 07/17/2024 3:55 PM EST No bilingual interpreter needed as this investigative writer speaks Malay. Call returned to [facility] Peoriamadhav Kumarpo via [employer] House Steward/Stewardess to triage below as this investigative writer is remote . No answer, LVM to return call to [facility] line [phone] * Telephone Encounter - Michelle Meeks - 07/17/2024 3:07 PM EST Symptoms: Leg Pain - Not From Injury, Hand or Wrist Pain - Not From Injury Outcome: Schedule an urgent appointment (within 1 hour) or talk to a nurse or provider soon Reason: Trouble walking The caller accepted this outcome. [phone] georgian documented in this encounter Plan of Treatment Upcoming Encounters Date Type Department Care Team (Late st Contact Info) Description 08/24/2024 2:30 PM EDT Clinical Support [facility] MED & PEDS 505 [place] [address] Maria Guadalupe Rodríguez, RN 505 [place] [address] documented as of this encounter Goals Goal [...] documented as of this encounter Care Teams Powder Nipper Relationship Specialty Start Date End Date Edwige Headley MD 230 [place] [address] PCP - General Family Medicine 08/21/22 documented as of this encounter
--- OUTSIDE RECORDS SUMMARY | 2024-08-01 12:02 | XMS_ITS | Encounter Summary ---
Author Organization [employer] Address [address] 7[address] [place] [address] Care Team Providers Care Forestry Hunter Name Role Phone Edwige Headley MD Primary Care Provider [phone] Reason for Visit * Reason Onset Date Comments Hospital Follow-up 05/25/2024 Encounter Details Date Type Department Care Team ([facility] st Contact Info) Description 05/25/[address] [facility] MEDICINE 230 [place] [address] Edwige Headley MD [address] [place] [address] Hospital Follow-up Social History Tobacco Use Types [...] from pt requesting a HDF appt. Hospital: [facility] Date of admission: 05/16/2024 Discharge date: 2024 Diagnosed: Discuss with pt. *Send message to [place] Clinical Care Coordinators documented in this encounter Plan of Treatment Upcoming Encounters Date Type Department Care Team (Late st Contact Info) Description 08/24/2024 2:30 PM EDT Clinical Support [facility] MED & PEDS 505 [place] [address] Maria Guadalupe Rodríguez, AC 505 [place] [address] documented as of this encounter Goals Goal [...] documented as of this encounter Care Teams Forestry Hunter Relationship Specialty Start Date End Date Edwige Headley MD 230 [place] [address] PCP - General Family Medicine 08/21/22 documented as of this encounter
--- OUTSIDE RECORDS SUMMARY | 2024-08-01 12:02 | XMS_ITS | Encounter Summary ---
Author Organization [employer] Address [address] [place] [address] Care Team Providers Care Manifest/Order Organizer Print Orders Name Role Phone Edwige Headley MD Primary Care Provider [phone] Reason for Visit * Reason Comments Med Refill Encounter Details Date Type Department Care Team ([facility] st Contact Info) Description 07/06/2024 Refill [facility] MEDICINE 230 [place], [place] [phone] Edwige Headley MD 505 [place] [address] Alzheimer's disease, unspecified (CODE) (CMS/[facility]) Social History Tobacco Use Types Packs/Day Years [...] Description 08/24/2024 2:30 PM EDT Clinical Support [facility] MED & PEDS 505 [place] [address] Maria Guadalupe Rodríguez, RN 505 [place] [address] documented as of this encounter Goals Goal Patient Goal Type Associated Problems Recent Progress Patient-Stated? Author Use the inhalers as prescribed by provider; Flovent HFA scheduled and albuterol as needed General No Marcel Garcia, PharmD Take your medication every day Lifestyle No Marcel Garcia PharmD documented as of this encounter Visit Diagnoses Diagnosis Alzheimer's disease, unspecified (CODE) (CMS/[facility]) documented in this encounter Additional Health Concerns Assessment Noted Time PHQ-9 Depression Total Score: 10 024 12:52 PM EDT documented as of this encounter Care Teams Manifest/Order Organizer Print Orders Relationship Specialty Start Date End Date Edwige Headley MD [address] [place] [address] PCP - General Family Medicine 08/21/22 documented as of this encounter
--- OUTSIDE RECORDS SUMMARY | 2024-08-01 12:02 | XMS_ITS | Encounter Summary ---
Author Organization [employer] Address [address] [place] [address] Care Team Providers Care Engine Manager Name Role Phone Edwige Headley MD Primary Care Provider [phone] Encounter Details Date Type Department Care Team (Latest Contact Info) Description 07/27/2024 Travel Social History Tobacco Use Types Packs/Day [...] Description 08/24/2024 2:30 PM EDT Clinical Support [facility] MED & PEDS 505 [place] [address] Maria Guadalupe Rodríguez, RN 505 [place] [address] documented as of this encounter Goals Goal [...] documented as of this encounter Care Teams Engine Manager Relationship Specialty Start Date End Date Edwige Headley MD 230 [place] [address] PCP - General Family Medicine 08/21/22 documented as of this encounter
--- OUTSIDE RECORDS SUMMARY | 2024-08-01 12:02 | XMS_ITS | Encounter Summary ---
Author Organization [employer] Address [address] [place] [address] Care Team Providers Care Instructional Systems Specialist Name Role Phone Edwige Headley MD Primary Care Provider [phone] Reason for Visit * Reason Onset Date Comments PT-1 03/28/2024 Encounter Details Date Type Department Care Team ([facility] st Contact Info) Description 03/28/2024 Telephone [facility] MEDICINE 230 [place] [address] Edwige Headley MD 505 [place] [address] PT-1 Social History Tobacco Use Types Packs/Day [...] Y/N: Yes Provider name or facility name: [facility] Facility Address: [address] [place] [address] Escort needed: Y/N: Yes Do you have a wheelchair: Y/N: No If yes- Manual or electric: (Uses Walker) Visits: Once a month documented in this encounter Plan of Treatment Upcoming Encounters Date Type Department Care Team (Late st Contact Info) Description 08/24/2024 2:30 PM EDT Clinical Support [facility] MED & PEDS 505 [place] [address] Maria Guadalupe Rodríguez RN 505 [place] [address] documented as of this encounter Goals Goal [...] documented as of this encounter Care Teams Instructional Systems Specialist Relationship Specialty Start Date End Date Edwige Headley MD [address] [place] [address] PCP - General Family Medicine 08/21/22 documented as of this encounter
--- OUTSIDE RECORDS SUMMARY | 2024-08-01 12:02 | XMS_ITS | Encounter Summary ---
Author Organization [employer] Address [address] 7[address] [place] [address] Care Team Providers Care Campus Recruiting Internship Name Role Phone Edwige Headley MD Primary Care Provider [phone] Reason for Visit * Reason Comments Med Refill Encounter Details Date Type Department Care Team ([facility] st Contact Info) Description 07/30/2024 Refill [facility] MEDICINE 230 [place] [address] Maryuri Miller FNP 505 [place] [address] Alzheimer's disease, unspecified (CODE) (CMS/[facility]) Social History Tobacco Use Types Packs/Day Years [...] Description 08/24/2024 2:30 PM EDT Clinical Support [facility] MED & PEDS 505 [place] [address] Maria Guadalupe Rodríguez, RN 505 [place] [address] documented as of this encounter Goals Goal Patient Goal Type Associated Problems Recent Progress Patient-Stated? Author Use the inhalers as prescribed by provider; Flovent HFA scheduled and albuterol as needed General No Marcel Garcia, PharmD Take your medication every day Lifestyle No Marcel Garcia PharmD documented as of this encounter Visit Diagnoses Diagnosis Alzheimer's disease, unspecified (CODE) (CMS/[facility]) documented in this encounter Additional Health Concerns Assessment Noted Time PHQ-9 Depression Total Score: 10 024 12:52 PM EDT documented as of this encounter Care Teams Campus Recruiting Internship Relationship Specialty Start Date End Date Edwige Headley MD [address] [place] [address] PCP - General Family Medicine 08/21/22 documented as of this encounter
--- OUTSIDE RECORDS SUMMARY | 2024-08-01 12:02 | XMS_ITS | Encounter Summary ---
Author Organization [employer] [facility] Address [address] [place] [address] Care Team Providers Care Display Designer Name Role Phone Edwige Headley MD Primary Care Provider [phone] Reason for Visit * Reason Comments Med Refill Encounter Details Date Type Department Care Team ([facility] Contact Info) Description 12/04/2022 Refill [facility] CHC MED & PEDS 505 [place] [address] Edwige Headley MD 505 [place] [address] Social History Tobacco Use Types Packs/Day Years [...] Upcoming Encounters Date Type Department Care Team ([facility] Contact Info) Description 08/24/2024 2:30 PM EDT Clinical Support [facility] CHC MED & PEDS 505 [place] [address] Maria Guadalupe Rodríguez, AC 505 [place] [address] documented as of this encounter Goals Goal [...] documented as of this encounter Care Teams Display Designer Relationship Specialty Start Date End Date Edwige Headley MD 230 [place] [address] PCP - General Family Medicine 08/21/22 documented as of this encounter
--- OUTSIDE RECORDS SUMMARY | 2024-08-01 12:02 | XMS_ITS | Encounter Summary ---
Author Organization [employer] Address [address] 7t [place] [address] Care Team Providers Care Certified Nursing Attendant Name Role Phone dEwige Headley MD Primary Care Provider Reason for Visit * Reason Onset Date Comments Lab Orders 07/06/2024 Encounter Details Date Type Department Care Team ([facility] st Contact Info) Description 07/06/2024 Telephone [facility] MEDICINE [address] [place] [address] Edwige Headley MD 505 [place] [address] Lab Orders Social History Tobacco Use Types [...] TC x 3 placed to pt via [employer] mergers and acquisitions manager (Ace ID#[id number]) to inform a tuberculosis lab order was placed by the provider for her to have done at her convenience. Pt verbalized understanding and deniesquestions or concerns at this time. * Telephone Encounter - Mau Overton - 07/06/2024 4:20 PM EST Tc from pt returning call. Pt needs an Proration Clerk. * Telephone Encounter - Zoë Dorantes RN - 07/06/2024 3:33 PM EST TC placed to pt via [employer] mergers and acquisitions manager (ID#[id number]) to inform a tuberculosis lab order was [...] Description 08/24/2024 2:30 PM EDT Clinical Support [facility] MED & PEDS 505 [place], [place] [phone] Maria Guadalupe Rodríguez, RN 505 [place], [place] documented as of this encounter Goals [...] AM EST) T Spot TB Negative Negative [facility] Comment:A negative test resu lt [...] as aquantitative test. TS PANEL A 0 [facility] TS PANEL B 0 [facility] Negative Control Passed [facility] Positive Control Passed [facility] Comment:For additional infor nika, please refer tohttp://education.questdiagnostics.com/faq/WSF652(This link is being provided for informational/educational purposes only.)THIS TEST WAS PERFORMED AT:[employer] [place] [address]JYJMYAK W. MASON,MD,PHD 07/07/2024 9:23 AM EST 07/07/2024 1:55 PM EST us Edwige Headley MD LAB BLOOD ORDERABLES Final Re sult [facility] [address] [place] [phone] documented in this encounter Visit Diagnoses Diagnosis Encounter for screening for respiratory tuberculosis documented in this encounter Additional Health Concerns Assessment Noted Time PHQ-9 Depression Total Score: 10 06/2 024 12:52 PM EDT documented as of this encounter Care Teams Certified Nursing Attendant Relationship Specialty Start Date End Date Edwige Headley MD [address] [place] [address] PCP - General Family Medicine 08/21/22 documented as of this encounter
--- OUTSIDE RECORDS SUMMARY | 2024-08-01 12:02 | XMS_ITS | Encounter Summary ---
Author Organization [employer] Address [address] [place] [address] Care Team Providers Care Brand Communications Manager Name Role Phone Edwige Headley MD Primary Care Provider [phone] Reason for Visit * Reason Comments Med Refill Encounter Details Date Type Department Care Team ([facility] st Contact Info) Description 10/16/2023 Refill [facility] CHC MED & PEDS 505 [place], [place] [phone] Edwige Headley MD 505 [place] [address] Social History Tobacco Use Types Packs/Day Years [...] Description 08/24/2024 2:30 PM EDT Clinical Support [facility] MED & PEDS 505 [place] [address] Maria Guadalupe Rodríguez, RN 505 [place] [address] documented as of this encounter Goals Goal [...] documented as of this encounter Care Teams Brand Communications Manager Relationship Specialty Start Date End Date Edwige Headley MD 230 [place] [address] PCP - General Family Medicine 08/21/22 documented as of this encounter
--- OUTSIDE RECORDS SUMMARY | 2024-08-01 12:02 | XMS_ITS | Encounter Summary ---
Author Organization [employer] Address [address] [place] [address] Care Team Providers Care Bowling Pin Setters Installer Name Role Phone Edwige Headley MD Primary Care Provider [phone] Reason for Visit * Reason Comments Med Refill Encounter Details Date Type Department Care Team ([facility] st Contact Info) Description 07/05/2024 Refill [facility] CHC MED & PEDS 505 [place], [place] [phone] Edwige Headley MD 505 [place] [address] Social History Tobacco Use Types Packs/Day Years [...] Description 08/24/2024 2:30 PM EDT Clinical Support [facility] MED & PEDS 505 [place] [address] Maria Guadalupe Rodríguez, RN 505 [place] [address] documented as of this encounter Goals Goal [...] Date End Date Edwige Headley MD 230 [place] [address] PCP - General Family Medicine 08/21/22 documented as of this encounter
--- OUTSIDE RECORDS SUMMARY | 2024-08-01 12:02 | XMS_ITS | Encounter Summary ---
Author Organization [employer] Address [address] [place] [address] Care Team Providers Care Merchandise Clerk Name Role Phone Edwige Headley MD Primary Care Provider [phone] Reason for Visit * Reason Comments Med Refill Encounter Details Date Type Department Care Team ([facility] st Contact Info) Description 07/24/2024 Refill [facility] [address] [place], [place] [id number] Edwige Headley MD [address] [place] [address] Social History Tobacco Use Types Packs/Day Years [...] PM EDT Clinical Support [facility] [address] [place] [address] Maria Guadalupe Rodríguez, RN [address] [place] [address] documented as of this encounter Goals Goal [...] documented as of this encounter Care Teams Merchandise Clerk Relationship Specialty Start Date End Date Edwige Headley MD [address] [place] [address] PCP - General Family Medicine 08/21/22 documented as of this encounter
--- OUTSIDE RECORDS SUMMARY | 2024-08-01 12:02 | XMS_ITS | Encounter Summary ---
Author Organization [employer] Address [address] [place] [address] Care Team Providers Care Able Bodied Watchman Name Role Phone Edwige Headley MD Primary Care Provider [phone] Reason for Visit * Reason Onset Date Comments Med Refill 07/27/2024 Encounter Details Date Type Department Care Team ([facility] st Contact Info) Description 07/27/2024 Refill [facility] [address] [place] [address] Edwige Headley MD [address] [place] [address] Fibromyalgia Social History Tobacco Use Types Packs/Day [...] encounter Miscellaneous Notes * Telephone Encounter - Gill Helm - 07/27/2024 11:39 AM EDT TC from pt requesting medication refill. Medications needing refill : traMADol (Ultram) 50 MG tablet To be sent to: [facility] pharmacy documented in this encounter Plan of Treatment Upcoming Encounters Date Type Department Care Team (Late st Contact Info) Description 08/24/2024 2:30 PM EDT Clinical Support [facility] [address] [place] [address] Maria Guadalupe Rodríguez, RN [address] [place] [address] documented as of this encounter Goals Goal [...] documented as of this encounter Care Teams Able Bodied Watchman Relationship Specialty Start Date End Date Edwige Headley MD [address] [place] [address] PCP - General Family Medicine 08/21/22 documented as of this encounter
--- OUTSIDE RECORDS SUMMARY | 2024-08-01 12:02 | XMS_ITS | Encounter Summary ---
Author Organization [employer] Address [address] [place] [address] Care Team Providers Care Doctor Osteopathic Name Role Phone Edwige Healdey MD Primary Care Provider [phone] Reason for Visit * Reason Onset Date Comments Appointment Request 04/28/2024 Encounter Details Date Type Department Care Team ([facility] st Contact Info) Description 04/28/2024 Telephone [facility] [address] [place] [address] Edwige Headley MD [address] [place] [address] Appointment Request Social History Tobacco Use Types [...] - 04/28/2024 2:22 PM EST Pt canceled [facility] visit on 05/09 because will be out of town from 05/06 thru the holidays spending time with family . Pt would like to reschedule. documented in this encounter Plan of Treatment Upcoming Encounters Date Type Department Care Team (Late st Contact Info) Description 08/24/2024 2:30 PM EDT Clinical Support [facility] [address] [place] [address] Maria Guadalupe Rodríguez, AC [address] [place], [place] documented as of this encounter Goals [...] documented as of this encounter Care Teams Doctor Osteopathic Relationship Specialty Start Date End Date Edwige eHadley MD [address] [place] [address] PCP - General Family Medicine 08/21/22 documented as of this encounter
== END 2024-08-01 10:21 | disposition home or self-care (01) ==
LOC: HO.XRAY 10:20
PROVIDERS: PCP Family Medicine; Visit Provider Internal Medicine
DX: M79.642 Pain in left hand (principal)
CPT/HCPCS: 73130

== ENCOUNTER → 2024-08-01 10:26 | Outpatient (BNV) | payer OTHER, SELFPAY | PROVIDERS: PCP Family Medicine; Visit Provider Radiology Diagnostic Radiology | DX: M79.642 Pain in left hand (principal) | CPT/HCPCS: 73130 ==

== ENCOUNTER 2024-08-22 13:25 | Outpatient (AMB) | payer OTHER, MEDICAID, SELFPAY ==
[2024-08-22 13:31] VITALS: BP 114/72; PULSE 73; BMI 23.3
--- NOTE | 2024-08-22 13:31 | A.OFFVIS_ITS ---
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 [employer] Name: voice Mary ruff [id number] Allergies pregabalin [From Lyrica] Allergy (Intermediate, Verified 08/22/24 13:34) Rash Medication List - Last Reconciled 08/22/24 by SOBIA Salazar albuterol sulfate 90 mcg/actuation 2 puffs inhalation Q4H PRN amlodipine 5 mg PO DAILY aspirin 81 mg PO DAILY inouokllmn-ahzgpohjypjnr-pbme 50-325-40 mg tabs PO calcium carbonate 600 mg PO BID cholecalciferol (vitamin D3) (Vitamin D3) 50 mcg PO DAILY estradiol 0.01%(0.1mg/gram) 1 appl vaginal MOWEFR famotidine 40 mg PO BEDTIME xfezngezawj-oyjnzdzeb-maaqwmik 200-62.5-25 mcg (Trelegy Ellipta) 1 inh inhalation DAILY gabapentin 300 mg PO TID hydrocortisone 2.5% (Anusol-HC) 1 appl AR BEDTIME PRN 14 days levalbuterol HCl 1.25 mg (3 mL) inhalation Q4-6H PRN losartan 25 mg PO DAILY memantine 5 mg PO BID metformin 500 mg PO TID montelukast 10 mg PO BEDTIME multivitamin 1 tab PO DAILY polyethylene glycol 3350 (Miralax) 17 grams PO DAILY PRN 90 days rosuvastatin 20 mg PO BEDTIME sennosides (senna) 8.6 mg PO DAILY sucralfate (Carafate) 10 mL PO Q8H PRN tramadol 50 mg PO BID PRN HPI HPI r/s 08/10/24 6 mos followup: Details: Ed is a 79-year-old female with past medical history of hypertension, diabetes, hyperlipidemia, diastolic heart failure, nonobstructive CAD, chronic shortness of breath with newer finding of COPD who presents for follow-up. Today she states that she continues to feel shortness of breath and chest tightness. She uses her inhalers and tells me they improve her breathing quite a bit. She is following with pulmonology. She has no other types of chest discomfort no PND, orthopnea or edema. No heart palpitations, light presyncope syncope. She is mostly sedentary and ambulates only short distances with a walker. Taking meds as directed. Certified beef lugger used. [facility] Medical History Atherosclerotic cardiovascular disease PVD (peripheral vascular disease) Breast nodule Urinary incontinence Osteoporosis Dementia in Alzheimer's disease Chronic diastolic (congestive) heart failure Hypertension Vitamin D deficiency Carpal tunnel syndrome Cervical disc disorder CKD (chronic kidney disease), stage II TONY (generalized anxiety disorder) Vertigo CAD (coronary artery disease) GERD (gastroesophageal reflux disease) Migraine Diabetes mellitus Asthma Surgical History H/O hand surgery Hx of cardiac catheterization History of hernia repair History of left inguinal hernia repair History of right inguinal hernia repair History of cholecystectomy Hx of colonoscopy History of esophagogastroduodenoscopy (EGD) Family History Mother Heart problem Arthritis Social History Household Members: Spouse, Family and Children Housing: House Alcohol intake: never Patient Tobacco Use Status: Never used Tobacco Second Hand Smoke Exposure: No service: No Review of Systems Const All systems reviewed & are unremarkable except as noted in HPI and below ENT Denies dizziness Card Denies chest pain, Denies chest pain at rest, Denies chest pain with activity, Denies rapid heart rate, Denies pedal edema, Denies edema, Denies leg edema, Denies lightheadedness, Denies palpitations, Denies dyspnea, Reports dyspnea on exertion (chest tight) and Denies orthopnea Resp Denies cough, Denies dyspnea and Reports dyspnea on exertion (chest tight) GI Denies hematochezia and Denies change in stool character Musc Denies abnormal gait, Denies limited range of motion, Denies muscle cramps, Denies muscle weakness, Denies numbness, Denies radiating pain into limb, Denies stiffness and Denies tingling Neuro Denies abnormal gait, Denies dizziness, Denies numbness and Denies tingling Endo Denies palpitations Physical Exam Vital Signs: Last Vital Signs Pulse 73 08/22/24 13:31 BP 114/72 08/22/24 13:31 BMI result Body Mass Index 23.3 Const General: cooperative, healthy appearing, comfortable and no acute distress Orientation/consciousness: patient oriented x3 Neck Neck: Yes normal visual inspection Resp Effort & Inspection: normal respiratory effort Auscultation: clear to auscultation bilaterally, no crackles, no rales, no rhonchi and no wheezes Cardio Jugular venous distension: no JVD Rate: regular rate Rhythm: regular rhythm Heart sounds: S1 normal heart sound present, S2 normal heart sound present, no murmurs and no rubs Skin General skin exam: no rashes or lesions noted Neuro General: patient oriented x3 Extrem General: Yes normal to inspection, No no pedal edema and No calf tenderness Psych Appearance: grossly normal Mental Status: mental status grossly normal Speech and movement: Normal speech and movement present Assessment & Plan Assessment & Plan (1) Atherosclerotic cardiovascular disease: Code(s): I25.10 - Atherosclerotic heart disease of [place] coronary artery without angina pectoris Category: Medical Plan: Cardiac evaluation for symptom of shortness of breath with activity and chest tightness. Notes indicate nonobstructive coronary artery disease based on cardiac catheterization 2020 ( In [place]). An echocardiogram was done on 11/12/2022 showing EF 65-70%, grade 1 diastolic dysfunction, no valve abnormalities. Holter monitor done 11/12/2022 showing sinus rhythm with average heart rate 72, rare PACs, her symptoms correlated with sinus rhythm. She did have a CT scan of the chest done 06/15/2023 which notes no coronary calcification. A nuclear stress test done on 03/13/2024 showed normal myocardial perfusion imaging. A prior pulmonary function test did show mild COPD and she now follows with pulmonology. Her symptoms are most likely pulmonary in nature as she does report improvement with the use of inhalers. Continue with risk factor modification. Signs and symptoms of angina reviewed with her. Continue aspirin, rosuvastatin with ideal LDL goal less than 70, losartan. Cardiology follow-up in 6 months sooner if needed. (2) Chest pain: Code(s): R07.9 - Chest pain, unspecified Category: Medical Plan: As above (3) Shortness of breath: Code(s): R06.02 - Shortness of breath Category: Medical Plan: Being followed by pulmonology for COPD (4) Hypertension: Code(s): I10 - Essential (primary) hypertension Category: Medical Qualifiers: Hypertension type: primary hypertension Qualified Code(s): I10 - Essential (primary) hypertension Plan: Well controlled at present time. No med changes made. (5) Chronic diastolic (congestive) heart failure: Code(s): I50.32 - Chronic diastolic (congestive) heart failure Category: Medical Plan: No clinical signs of heart failure on examination. She does have this sensation that she has to take extra deep breaths in. BNP <10 on 05/16/2024. Signs and symptoms of heart failure reviewed with her. Plan Time spent on chart review, documentation, interview and assessment Coding Level of Care Code Est Pt Level 4 (19554) Complex EM visit Add On G2211 Diagnoses Atherosclerotic cardiovascular disease I25.10 Chest pain R07.9 Shortness of breath R06.02 Primary hypertension I10 Hypertension type: primary hypertension Chronic diastolic (congestive) heart failure I50.32 Time Spent (min) 32
--- OUTSIDE RECORDS SUMMARY | 2024-08-22 16:20 | XMS_ITS | Clinical Summary ---
Author Organization [employer] Address [address] [place] [address] Care Team Providers Care Joy Loading Machine Operator Name Role Phone Edwige Headley MD Primary Care Provider [phone] Allergies Active Allergy Reactions Criticality Noted Date [...] each 023 Active Lancets (OneTouch Delica Plus [id number]) misc 1 Units in the morning. Please [...] MG tabletIndicatio ns:Alzheimer's disease, unspecified (CODE) (CMS/HCC) Take 1 tablet (5 mg) by mouth 2 times daily. 60 tablet 2 025 Active calcium carbonate 1500 (600 Ca) [...] 5 MG tabletIndicatio ns:Alzheimer's disease, unspecified (CODE) ([facility]) TAKE 1 TABLET BY MOUTH TWICE DAILY IN THE MORNING AND IN THE EVENING 60 tablet 025 2024 Discontinued memantine (Namenda) 5 MG tabletIndicatio ns:Alzheimer's disease, unspecified (CODE) ([facility]) TAKE 1 TABLET BY MOUTH TWICE DAILY IN THE MORNING AND IN THE EVENING 60 tablet 025 2024 Discontinued(R eorder (will not [...] swallow test came back normal. Referred to landscape gardener Assessment & Plan (07/20/2023 9:51 PM EST): [...] be prescribed steroids. Recommended patient to call Gas Leak Tester to schedule an appointment to get further [...] Center 10/18/2023 3:30 PM Edwige Headley MD [facility] Assessment & Plan (03/19/2023 3:58 PM [...] and daughter. PLAN: 1. Follow up with [facility]: Not recommended for follow-up 2. Patient goal is to be able to manage her symptoms without medication. 3. Behavioral Recommendations a. Referral to Ind. therapy b. Practice of Coping skills for Anxiety c. Contact this insurance writer for support as needed Encounters Date Type Department Care Team Description 08/19/2024 11:20 AM EDT Office Visit [facility] [address] [place] [phone] Jordy Downs MD Vomiting, unspecified vomiting type, unspecified whether nausea present 08/18/2024 8:45 AM EDT Telemedicine [facility] [address] [place] [address] Robert High MD Trigger middle finger of left hand (Primary Dx) 08/18/2024 Travel 08/17/2024 Travel 08/17/2024 Telephone [facility] [address] [place], [place] [phone] Maria Guadalupe Rodríguez, AC salvage supervisor 08/17/[address] [address] Edwige Headley MD Appointment Request 08/17/[address] [address] Edwige Headley MD Nurse Triage 08/03/2024 Orders Only [facility] [address] [place] [address] Radha Renee MD Alzheimer's disease, unspecified (CODE) ([facility]) 08/02/2024 Telephone [facility] [address] [place] [address] Paris Gamino, RN Results; Referral 07/30/2024 Refill [facility] [address] [place] [address] Maryuri Miller, LINT CLEANER Alzheimer's disease, unspecified (CODE) (CMS/[facility]) 07/27/2024 9:30 AM EDT Office Visit [facility] [address] [place] [address] Radha Renee MD Left hand pain (Primary Dx); Meralgia paresthetica of left side; Headache, common migraine, intractable 07/27/2024 Refill [facility] [address] [place] [address] Edwige Headley MD Fibromyalgia 07/27/2024 Travel 07/24/2024 Refill [facility] [address] [place] [address] Edwige Headley MD 07/19/2024 Telephone [facility] [address] [place] [address] Nina Clemons MD Appointment Request 07/17/2024 Telephone [facility] [address] [place] [address] Edwige Headley MD Nurse Triage 07/06/2024 Refill [facility] [address] [place] [address] Edwige Headley MD Alzheimer's disease, unspecified (CODE) ([facility]) 07/06/2024 Telephone [facility] [address] [place] [address] Edwige Headley MD Lab Orders 07/05/2024 Refill [facility] [address] [place] [address] Edwige Headley MD 06/26/2024 Refill [facility] [address] [place] [address] Edwige Headley MD 06/20/2024 1:00 PM EST Clinical Support [facility] [address] [place] [address] Maria Guadalupe Rodríguez, AC Fibromyalgia 06/20/2024 Travel 06/20/2024 Refill [facility] [address] [place] [address] Maria Guadalupe Rodríguez RN Fibromyalgia 06/19/2024 2:45 PM EST Office Visit [facility] [address] [place] [address] Radha Renee MD Fibromyalgia (Primary Dx); Type 2 diabetes mellitus with hyperglycemia, without long-term current use of insulin (CMS/HCC); Chronic diastolic heart failure (CMS/HCC); Chronic obstructive pulmonary disease, unspecified COPD type (CMS/HCC) 06/19/2024 Travel 06/13/2024 Refill [facility] [address] [place] [address] Edwige Headley MD Fibromyalgia 05/30/2024 1:00 PM EST Office Visit [facility] [address] [place] [address] Radha Renee MD Chronic obstructive pulmonary disease, unspecified COPD type (CMS/HCC) (Primary Dx); Raynaud's phenomenon without gangrene; Other fatigue; Type 2 diabetes mellitus with hyperglycemia, without long-term current use of insulin (CMS/HCC); Primary hypertension 05/30/2024 Travel 05/25/2024 Patient Outreach [facility] [address] [place] [address] Edwige Headley MD Transition Of Care (Tcm) (HDF- scheduled and SDOH screening completed on 10/29/2023) 05/25/2024 Telephone [facility] [address] [place] [address] Edwige Headley MD Hospital Follow-up 05/24/2024 Telephone [facility] [address] [place] [address] Mary Santiago MD from Last 3 Months Immunizations Name [...] Sign Reading Time Taken Comments Blood Pressure 118/76 08/19/2024 11:15 AM EDT Pulse 86 08/19/2024 11:15 AM EDT Temperature 36.7 ??C (98 ??F) 08/19/2024 11:15 AM EDT Respiratory Rate 16 08/19/2024 11:15 AM EDT Oxygen Saturation 98% 08/19/2024 11:15 AM EDT Inhaled Oxygen Concentration - - Weight 54.6 kg (120 lb 6.4 oz) 08/19/2024 11:15 AM EDT Height 152.4 cm (5') 07/27/2024 8:47 AM EDT Body Mass Index 23.51 07/27/2024 8:47 AM EDT Plan of Treatment Upcoming Encounters Date Type Department Care Team (Late st Contact Info) Description 09/14/2024 10:30 AM EDT Clinical Support [facility] [address] [place] [address] Maria Guadalupe Rodríguez, RN [address] [place] [address] Health Maintenance Due Date Last Done Comments [...] Name Priority Date/Time Associated Diagnosis Comments POCT INFLUENZA B (ID NOW RAPID MOLECULAR) Routine 08/19/2024 11:27 AM EDT Vomiting, unspecified vomiting type, unspecified whether nausea present POCT INFLUENZA A (ID NOW RAPID MOLECULAR) Routine 08/19/2024 11:27 AM EDT Vomiting, unspecified vomiting type, unspecified whether nausea present POCT RAPID COVID ANTIGEN Routine 08/19/2024 11:27 AM EDT Vomiting, unspecified vomiting type, unspecified whether nausea present XR HAND 3+ VIEWS LEFT Routine 08/01/2024 10:45 AM EDT Left hand pain ALBUMIN, RANDOM URINE W/CREATININE Routine 07/18/2024 9:57 [...] fatigue TSH W/REFLEX TO FT4 Routine 05/31/2024 12:44 PM EST Chronic obstructive pulmonary disease, unspecified COPD type (CMS/HCC) Raynaud's phenomenon without gangrene Other fatigue VITAMIN D,25-OH,TOTAL,IA Routine 05/31/2024 12:44 PM EST Chronic obstructive pulmonary disease, unspecified COPD type (CMS/HCC) Raynaud's phenomenon without gangrene Other fatigue POCT GLUCOSE Routine 05/30/2024 1:43 PM EST Type 2 diabetes mellitus with hyperglycemia, without long-term current use of insulin ([facility]/HCC) POCT GLYCATED HEMOGLOBIN, TOTAL Routine 05/30/2024 1:42 PM EST Type 2 diabetes mellitus with hyperglycemia, without long-term current use of insulin (CMS/[facility]) LIPID PANEL, STANDARD Routine 08/30/2023 10:36 AM EDT from Last 3 Months or Most Recently Relevant to Health Maintenance Results * Influenza B (ID NOW Rapid Molecular) (08/19/2024 11:27 AM EDT) [facility] Influenza B Negative Negative, Indeterminate [facility] Swab 08/19/2024 11:2 7 AM EDT Jordy Downs MD POINT OF CARE TEST ENTER/EDIT OR DERABLES Final Result Performing Organization Address [facility]/ZIP Co de Phone Number [facility] [address] [place] [phone] * Influenza A (ID NOW Rapid Molecular) (08/19/2024 11:27 AM EDT) [facility] Influenza A Negative Negative, Indeterminate [facility] Swab 08/19/2024 11:2 7 AM EDT us Jordy Downs MD POINT OF CARE TEST ENTER/EDIT OR DERABLES Final Result Performing Organization Address [facility]/ZIP Co de Phone Number [facility] [address] [place] [phone] * POCT Rapid COVID Ag (08/19/2024 11:27 AM EDT) [facility] Rapid COVID Ag Negative [facility] Swab 08/19/2024 11:2 7 AM EDT us Jordy Downs MD POINT OF CARE TEST ENTER/EDIT OR DERABLES Final Result [facility] [address] [place] [address] [phone] * XR Hand 3+ Views Left (08/01/2024 10:45 AM EDT) Anatomical Region Laterality Modality Upper Extremities, Hand Left Radiogra phic Imaging 08/01/2024 10:4 5 AM EDT Narrative 08/02/2024 7:11 AM EDT ? [facility] ?[address] ?[place] [address] ?XRay Report ? Signed ? Patient: Puri Hoffmann,Blasina ?MR#: M ?? [id number] ? : 1945 ?Acct:[id number] ? Age/Sex: 79 / F ?ADM Date: 08/01/24 ? Loc: HO.XRAY ? Attending Dr: Radha Renee MD ? Ordering Physician: Radha Renee MD ?? Date of Service: 08/01/24 ?? Procedure(s): XR hand LT min 3V ?? Accession Number(s): [id number] ? cc: Radha Renee MD; Edwige Headley MD ? EXAMINATION: ??XR HAND 3 OR MORE VIEWS LEFT ? HISTORY: left hand pain ? COMPARISON: There are no prior studies available for comparison. ? FINDINGS: ? Three views of the left hand are submitted. ??The bones are osteopenic. ? There is no fracture or dislocation. ??There is mild to moderate ?? osteoarthritis of the 1st carpometacarpal joint, with joint space ?? narrowing and osteophyte formation. There is mild osteoarthritis of the ?? DIP joints. ??The soft tissues are unremarkable. ? XR/XR hand LT min 3V ?? IMPRESSION: ? Osteopenia. Osteoarthritis as described. ? Electronically signed by: ??Clarke Fierro MD ??08/02/2024 07:04 AM EDT ?? RP ? Dictated By: ?Clarke Fierro MD ? Signed By: ?<Electronically signed by Clarke Fierro MD in OV> ?08/02/24 0704 ? DD/ 1045 ? TD/TT: 08/01/24 1045 ? Supervisor Refractory Products: ? Procedure Note Donroseannter, Image - 08/02/[address] [address] XRay Report Signed Patient: Arthur Holguin#: M [id number] : 1945cct:[id number] Age/Sex: 79 / FADM Date: 08/01/24 Loc: HO.DOUGAY Attending Dr: Radha Renee MD Ordering Physician: Radha Renee MD Date of Service: 08/01/24 Procedure(s): XR hand LT min 3V Accession Number(s): [id number] cc: Radha Renee MD; Edwige Headley MD EXAMINATION: XR HAND 3 OR MORE VIEWS LEFT HISTORY: left hand pain COMPARISON: There are no prior studies available for comparison. FINDINGS: Three views of the left hand are submitted. The bones are osteopenic. There is no fracture or dislocation. There is mild to moderate osteoarthritis of the 1st carpometacarpal joint, with joint space narrowing and osteophyte formation. There is mild osteoarthritis of the DIP joints. The soft tissues are unremarkable. XR/XR hand LT min 3V IMPRESSION: Osteopenia. Osteoarthritis as described. Electronically signed by: Clarke Fierro MD 08/02/2024 07:04 AM EDT Dictated By: Clarke Fierro MD Signed By: <Electronically signed by Clarke Fierro MD in OV> 08/02/24 0704 DD/ 1045 TD/TT: 08/01/24 1045 Supervisor Refractory Products: us Radha Renee MD IMG XR PROCEDURES Final Res ult * Albumin, Random Urine W/Creatinine (07/18/2024 9:57 AM EST) Creatinine, Urine 47.58 mg/dL [facility] Microalbumin Urine 13.0 mg/L [facility] Microalbum Creatinine Ratio Ur 27.3 <30 ug/mg cr [facility] Comment:Albumin/Creatinine R atio Reference Ranges: Normal: < 30 ug/mg creatinine Microalbuminuria: 30 - 300 ug/mg creatinineClinical Albuminuria: > 300 ug/mg creatinine Urine (Urine, Random) 07/18/2024 9:57 AM EST 07/18/2024 2:15 PM EST us Radha Renee MD LAB URINE ORDERABLES Final Result [facility] [address] [place] [phone] * T-SPOT??.TB (07/07/2024 9:23 AM EST) T Spot TB Negative Negative [facility] Comment:A negative test resu lt does [...] as aquantitative test. TS PANEL A 0 [facility] TS PANEL B 0 [facility] Negative Control Passed [facility] Positive Control Passed [facility] Comment:For additional infor nika, please refer tohttp://education.Digiboo/faq/PSN507(This link is being provided for informational/educational purposes only.)THIS TEST WAS PERFORMED AT:[id number] [place] [address]JTNWFDKVIRGINIA DAN MD,PHD 07/07/2024 9:23 AM EST 07/07/2024 1:55 PM EST Edwige Headley MD LAB BLOOD ORDERABLES Final Re sult Performing Organization Address [facility]/[employer] Co de Phone Number [facility] [address] [place] [phone] * Hepatitis C Antibody with Reflex to HCV, RNA, Quantitative, Real-Time PCR (07/07/2024 9:23 AM EST) Hepatitis C Antibody Nonreactive Nonreactive [facility] Comment:Antibodies to HCV no t detected; does not exclude early acuteHCV infection. Blood Venous blood specimen / Unknown 07/07/2024 9:23 AM EST 07/07/2024 1:55 PM EST Radha Renee MD LAB BLOOD ORDERABLES Final Result Performing Organization Address [facility] de Phone Number [facility] [address] [place] [phone] * POCT SENAIT-14 Urine Drug Screen (06/20/2024 2:05 PM EST) Urine Urine specimen obtained by clean catch procedure / Unknown 06/20/2024 2:05 PM EST Narrative Maria Guadalupe Rodríguez RN - 06/20/2024 2:05 PM EST negative for THC, MOP, OXY, ANTON, MET, AMP, BZO, BAR, MTD, BUPG, TCA, MDMA, PCP, PPX. Lot# [id number] Exp: 04-22-25 Edwige Headley MD POINT OF CARE TEST ENTER/EDIT ORDERABLES Final Result * POCT glucose manually resulted (06/19/2024 2:34 PM EST) Only the most recent of2 resultswithin the time period is included. Glucose Blood, POC 113 60 - 200 mg/dL QC Media Lot # Comment:[id number] Lot# Expiration Date Comment:08/22/2024 Blood Capillary blood specimen / Unknown 06/19/2024 2:34 PM EST Radha Renee MD POINT OF CARE TEST ENTER/ED IT ORDERABLES Final Result * Vitamin D, 25-Hydroxy, Total, Immunoassay (05/31/2024 12:44 PM EST) Vitamin D 25-OH Total 33.6 >30 ng/mL [facility] Comment:Health Based Referen ce Values*< 20 ng/mL Zqaufgtms82-47 ng/mL Insufficient> 30 ng/mL Sufficient*Yessy MENDOZA. N [...] Renee MD LAB BLOOD ORDERABLES Final Result [facility] [address] [place] [phone] * (ABNORMAL) Vitamin B12/Folate, Serum Panel (05/31/2024 12:44 PM EST) Vitamin B12 944(H) 200 - 900 pg/mL [facility] Comment:NORMAL 200-900 PG/ML INDETERMINATE 160-199 PG/ML DEFICIENT < 160 PG/ML Folate 11.9 > or = 4.0 ng/mL [facility] Comment:Reference Values:> o r = 4.0 [...] BLOOD ORDERABLES Final Result Performing Organization Address [facility]/ZIP Co de Phone Number [facility] [address] [place] [phone] * TSH W/Reflex to FT4 (05/31/2024 12:44 PM EST) TSH reflex Free T4 1.02 0.32 - 4.0 uIU/mL [facility] Blood Venous blood specimen / Unknown 05/31/2024 12:44 PM EST 05/31/2024 2:20 PM EST us Radha Renee MD LAB BLOOD ORDERABLES Final Result Performing Organization Address City/[facility]/ZIP Co de Phone Number [facility] [address] [place] [phone] * (ABNORMAL) Vitamin B1 (05/31/2024 12:44 PM EST) Vitamin B1 41(A) 8 - 30 nmol/L [facility] Comment:Vitamin supplementat ion within 24 hours prior toblood draw may affect the accuracy of the results.This test was developed and its analytical performancecharacteristics have been determined by [facility] [place], [place]. It hasnot been cleared or approved by the U.S. Food and DrugAdministration. This assay has been validated pursuantto the CLIA regulations and is used for clinicalpurposes.THIS TEST WAS PERFORMED AT:[id number] [place] [address]EQNWRSRVIRGINIA DAN MD,PHD Blood Venous blood specimen / Unknown 05/31/2024 12:44 PM EST 05/31/2024 2:20 PM EST us Radha Renee MD LAB BLOOD ORDERABLES Final Result [facility] [address] [place] [phone] * Magnesium (05/31/2024 12:44 PM EST) Pathologist [facility] Magnesium 1.8 1.6 - 2.6 mg/dL [facility] Blood Venous blood specimen / Unknown 05/31/2024 12:44 PM EST 05/31/2024 2:20 PM EST us Radha Renee MD LAB BLOOD ORDERABLES Final Result Performing Organization Address [facility]/ZIP Co pr Phone Number [facility] [address] [place] [phone] * (ABNORMAL) POCT HGB A1C (05/30/2024 1:42 PM EST) Pathologist [facility] Hemoglobin A1C 6.9(A) 4.0 - 6.0 % QC Media Lot # [id number] Lot# Expiration Date [id number] Blood 05/30/2024 1:42 PM EST Radha Renee MD POINT OF CARE TEST ENTER/ED IT ORDERABLES Final Result * Lipid Panel, Standard (08/30/2023 10:36 AM EDT) Triglycerides 39 <150 mg/dL [facility] Comment:Desirable Triglyceri de: less than 150 mg/dLBorderline High Triglyceride 150-199 mg/dLHigh Triglyceride: 200-499 mg/dLVery High Triglyceride: greater than or equal to 5OO mg/dL Cholesterol 116 <200 mg/dL [facility] Comment:Desirable Cholestero l: less than 200 mg/dLBorderline High Cholesterol: 200-239 mg/dLHigh Cholesterol: greater than 239 mg/dL LDL Cholesterol Calculated 35 <100 mg/dL [facility] Comment:Desirable LDL: less than 100 mg/dLNear Optimal/Above Optimal LDL: 110- 129 mg/dLBorderline High LDL: 130-159 mg/dLHigh LDL: 160-189 mg/dLVery High LDL: greater than or equal to 190 mg/dL HDL Cholesterol 74 >40 mg/dL [facility] Comment:Desirable HDL: great er than 40 mg/dL Note: This HDL assay may give artificially low results in patients with liver disease. 08/30/2023 10:3 6 AM EDT 08/30/2023 10:41 AM EDT us Generic External Data Provider LAB BLOOD ORDERAB LES Final Result [facility] [address] [place] [phone] from Last 3 Months or Most Recently Relevant to Health Maintenance Insurance [facility] Care Teams Joy Loading Machine Operator Relationship Specialty Start Date End Date Edwige Headley MD [address] [place] [phone] PCP - General Family Medicine 08/21/22
--- OUTSIDE RECORDS SUMMARY | 2024-08-22 16:20 | XMS_ITS | Encounter Summary ---
Author Organization [employer] Address [address] [place] [address] Care Team Providers Care Research Test Engine Evaluator Name Role Phone Edwige Headley MD Primary Care Provider [phone] Reason for Visit * Reason Onset Date Comments Appointment Request 04/28/2024 Encounter Details Date Type Department Care Team ([facility] st Contact Info) Description 04/28/2024 Telephone [facility] [address] [place] [address] Edwige Headley MD [address] [place] [address] Appointment Request Social History Tobacco Use Types [...] - 04/28/2024 2:22 PM EST Pt canceled [facility] PUSHER visit on 05/09 because will be out of town from 05/06 thru the holidays spending time with family . Pt would like to reschedule. documented in this encounter Plan of Treatment Upcoming Encounters Date Type Department Care Team (Late st Contact Info) Description 09/14/2024 10:30 AM EDT Clinical Support [facility] [address] [place] [address] Maria Guadalupe Rodríguez, AC [address] [place], [place] documented as of this encounter Goals [...] as of this encounter Care Teams Research Test Engine Evaluator Relationship Specialty Start Date End Date Edwige Headley MD [address] [place] [address] PCP - General Family Medicine 08/21/22 documented as of this encounter
--- OUTSIDE RECORDS SUMMARY | 2024-08-22 16:20 | XMS_ITS | Encounter Summary ---
Author Organization [employer] Address [address] [place] [address] Care Team Providers Care Storage Facility Rental Clerk Name Role Phone Edwige Headley MD Primary Care Provider [phone] Reason for Visit * Reason Comments Med Refill Encounter Details Date Type Department Care Team ([facility] st Contact Info) Description 08/13/2023 Refill [facility] [address] [place], [place] [phone] Edwige Headley MD [address] [place] [address] Social History Tobacco Use Types Packs/Day Years [...] Description 09/14/2024 10:30 AM EDT Clinical Support [facility] [address] [place] [address] Maria Guadalupe Rodríguez, RN [address] [place] [address] documented as of this encounter Goals Goal [...] documented as of this encounter Care Teams Storage Facility Rental Clerk Relationship Specialty Start Date End Date Edwige Headley MD [address] [place] [address] PCP - General Family Medicine 08/21/22 documented as of this encounter
--- OUTSIDE RECORDS SUMMARY | 2024-08-22 16:20 | XMS_ITS | Encounter Summary ---
Author Organization [employer] Address [address] [place] [address] Care Team Providers Care Clutch Assembler Name Role Phone Edwige Headley MD Primary Care Provider [phone] Reason for Visit * Reason Onset Date Comments Hospital Follow-up 05/25/2024 Encounter Details Date Type Department Care Team ([facility] st Contact Info) Description 05/25/2024 Telephone [facility] [address] [place] [address] Edwige Headley MD [address] [place] [phone] Hospital Follow-up Social History Tobacco Use Types [...] from pt requesting a HDF appt. Hospital: [facility] Date of admission: 05/16/2024 Discharge date: 2024 Diagnosed: Discuss with pt. *Send message to [facility] Clinical Care Coordinators documented in this encounter Plan of Treatment Upcoming Encounters Date Type Department Care Team (Late st Contact Info) Description 09/14/2024 10:30 AM EDT Clinical Support [facility] [address] [place] [address] Maria Guadalupe Rodríguez, AC [address] [place] [address] documented as of this encounter Goals Goal [...] documented as of this encounter Care Teams Clutch Assembler Relationship Specialty Start Date End Date Edwige Headley MD [address] [place] [address] PCP - General Family Medicine 08/21/22 documented as of this encounter
--- OUTSIDE RECORDS SUMMARY | 2024-08-22 16:20 | XMS_ITS | Encounter Summary ---
Author Organization [employer] Address [address] [facility] [address] 7t [place] [address] Care Team Providers Care Marine Radio Installer And Servicer Name Role Phone Edwige Headley MD Primary Care Provider [phone] Encounter Details Date Type Department Care Team ([facility] st Contact Info) Description 10/22/2022 Telephone [facility] 505 [place], [place] [phone] Edwige Headley MD 505 [place] [address] Social History Tobacco Use Types Packs/Day Years [...] a call in regards to message above. (Polish speaker) * Telephone Encounter - Inez Martinez - 10/22/2022 3:31 PM EDT TC from pt requesting help to schedule her gastro appt . Please call to clarify . documented in this encounter Plan of Treatment Upcoming Encounters Date Type Department Care Team (Late st Contact Info) Description 09/14/2024 10:30 AM EDT Clinical Support [facility] MED & PEDS 505 [place] [address] Maria Guadalupe Rodríguez, RN 505 [place] [address] documented as of this encounter Goals Goal [...] as of this encounter Care Teams Marine Radio Installer And Servicer Relationship Specialty Start Date End Date Edwige Headley MD 230 [place] [address] PCP - General Family Medicine 08/21/22 documented as of this encounter
--- OUTSIDE RECORDS SUMMARY | 2024-08-22 16:20 | XMS_ITS | Encounter Summary ---
Author Organization [employer] Address [address] [facility] 7t [place] [address] Care Team Providers Care Hogshead Filler Name Role Phone Edwige Headley MD Primary Care Provider [phone] Encounter Details Date Type Department Care Team ([facility] Contact Info) Description 11/03/2022 Abstract [place] [employer] 230 [place] [address] Edwige Headley MD 505 [place] [address] Social History Tobacco Use Types Packs/Day Years [...] Upcoming Encounters Date Type Department Care Team ([facility] Contact Info) Description 09/14/2024 10:30 AM EDT Clinical Support [facility] MED & PEDS 505 [place] [address] Maria Guadalupe Rodríguez RN 505 [place] [address] documented as of this encounter Goals Goal [...] documented as of this encounter Care Teams Hogshead Filler Relationship Specialty Start Date End Date Edwige Headley MD 230 [place] [address] PCP - General Family Medicine 08/21/22 documented as of this encounter
--- OUTSIDE RECORDS SUMMARY | 2024-08-22 16:20 | XMS_ITS | Encounter Summary ---
Author Organization [employer] Address [address] [facility] [address] 7[address] [place] [address] Care Team Providers Care Account Service Representative Name Role Phone Edwige Headley MD Primary Care Provider [phone] Reason for Visit * Reason Onset Date Comments Appointment Request 04/06/2024 Encounter Details Date Type Department Care Team ([facility] st Contact Info) Description 04/06/2024 Telephone [facility] MEDICINE 230 [place] [address] Edwige Headley MD 505 [place] [address] Appointment Request Social History Tobacco Use Types [...] somewhere else. Contac pt to r/s at [phone] documented in this encounter Plan of Treatment Upcoming Encounters Date Type Department Care Team (Late st Contact Info) Description 09/14/2024 10:30 AM EDT Clinical Support [facility] MED & PEDS 505 [place] [address] Maria Guadalupe Rodríguez, AC 505 [place] [address] documented as of this encounter Goals Goal [...] documented as of this encounter Care Teams Account Service Representative Relationship Specialty Start Date End Date Edwige Headley MD 230 [place] [address] PCP - General Family Medicine 08/21/22 documented as of this encounter
--- OUTSIDE RECORDS SUMMARY | 2024-08-22 16:20 | XMS_ITS | Encounter Summary ---
Author Organization [facility] Address [address] 7[address] [place] [address] Care Team Providers Care Flare Worker Name Role Phone Edwige Headley MD Primary Care Provider [phone] Reason for Visit * Reason Comments Med Refill Encounter Details Date Type Department Care Team ([facility] Contact Info) Description 12/04/2022 Refill [facility] MED & PEDS 505 [place] [address] Edwige Headley MD 505 [place] [address] Social History Tobacco Use Types Packs/Day Years [...] Upcoming Encounters Date Type Department Care Team ([facility] Contact Info) Description 09/14/2024 10:30 AM EDT Clinical Support [facility] MED & PEDS 505 [place] [address] Maria Guadalupe Rodríguez, AC 505 [place] [address] documented as of this encounter Goals Goal [...] documented as of this encounter Care Teams Flare Worker Relationship Specialty Start Date End Date Edwige Headley MD 230 [place] [address] PCP - General Family Medicine 08/21/22 documented as of this encounter
--- OUTSIDE RECORDS SUMMARY | 2024-08-22 16:21 | XMS_ITS | Encounter Summary ---
Author Organization [employer] Address [address] [facility] [address] 7t [place] [address] Care Team Providers Care Shampoo Person Name Role Phone Edwige Headley MD Primary Care Provider [phone] Encounter Details Date Type Department Care Team (Late st Contact Info) Description 08/19/2024 11:20 AM EDT Office Visit [facility] [address] [place] [phone] Jordy Downs MD 230 [place], [place] [phone] Vomiting, unspecified vomiting type, unspecified whether nausea present Social History Tobacco Use Types Packs/Day Years [...] 6.4 oz) 08/19/2024 11:15 AM EDT Height - - Body Mass Index 23.51 07/27/2024 8:47 AM EDT documented in this encounter Progress Notes * Jordy Downs MD - 08/19/2024 11:20 AM EDT Subjective History was provided by the patient and adult daughter . Ed Hoffmann is a 79 y.o. female who presents for evaluation of vomiting this AM. Had somecorn flakes and coffee this AM prepared by her daughter. Then went to [facility] where she had hash brown and ham. Afterward, she had vomiting fits, then became pale, diaphoretic, and weak. Denies LOC or MS change. Subsequent BP at [facility] was 140/90. Patient reports she feels well and back to her baseline. Denies current N/V or abdominal pain. Denies current FELIX, dizziness, or lightheadedness. Denies F/C or diarrhea. Objective Vitals: 08/19/24 1115 BP: 118/76 BP Location: Left arm Patient Position: Sitting BP Cuff Size: Adult Pulse: 86 Resp: 16 Temp: 98 ??F (36.7 ??C) TempSrc: Oral SpO2: 98% Weight: 120 lb 6.4 oz (54.6 kg) Physical Exam Vitals reviewed. Constitutional: Appearance: Normal appearance. She is normal weight. HENT: Head: Normocephalic and atraumatic. Right Ear: External ear normal. Left Ear: External ear normal. Nose: Nose normal. Mouth/Throat: Mouth: Mucous membranes are dry. Pharynx: Oropharynx is clear. Eyes: Extraocular Movements: Extraocular movements intact. Conjunctiva/sclera: Conjunctivae normal. Pupils: Pupils are equal, round, and reactive to light. Cardiovascular: Rate and Rhythm: Normal rate and regular rhythm. Heart sounds: Normal heart sounds. Pulmonary: Effort: Pulmonary effort is normal. Breath sounds: Normal breath sounds. Abdominal: General: Abdomen is flat. There is no distension. Palpations: Abdomen is soft. There is no mass. Tenderness: There is no abdominal tenderness. There is no right CVA tenderness, left CVA tenderness, guarding or rebound. Hernia: No hernia is present. Comments: Hypoactive BS Musculoskeletal: General: Normal range of motion. Cervical back: Normal range of motion and neck supple. Skin: General: Skin is warm and dry. Neurological: General: No focal deficit present. Mental Status: She is alert and oriented to person, place, and time. Cranial Nerves: No cranial nerve deficit. Motor: No weakness. Psychiatric: Mood and Affect: Mood normal. Behavior: Behavior normal. Diagnoses and all orders for this visit: Vomiting, unspecified vomiting type, unspecified whether nausea present - POCT Rapid COVID Ag - Influenza A (ID NOW Rapid Molecular) - Influenza B (ID NOW Rapid Molecular) Patient presents to Wednesday [facility] after an episode of vomiting fits at adult day care few hours prior She feels well now without abdominal pain or N/V/D currently Likely due to the food she consumed at the day care Symptoms of diaphoresis, chills, and dizziness likely contributed by vasovagal response to vomiting No syncope or LOC No clinical evidence of acute abdomen Vitals stable currently Advised to consume bland diet today and ample hydration Rapid COVID-19 and Influenza A/B negative today Indications for UC/ER use reviewed Advised to contact the clinic if persistent or worsening symptoms documented in this encounter Plan of Treatment Upcoming Encounters Date Type Department Care Team (Late st Contact Info) Description 09/14/2024 10:30 AM EDT Clinical Support [facility] MED & PEDS 505 [place] [address] Maria Guadalupe Rodríguez, RN [address] [place] documented as of this encounter Goals [...] unspecified vomiting type, unspecified whether nausea present documented in this encounter Results * Influenza B (ID NOW Rapid Molecular) (08/19/2024 11:27 AM EDT) [facility] Influenza B Negative Negative, Indeterminate [facility] Swab 08/19/2024 11:2 7 AM EDT us Jordy Downs MD POINT OF CARE TEST ENTER/EDIT OR DERABLES Final Result [facility] [address] [place] [address] [phone] * Influenza A (ID NOW Rapid Molecular) (08/19/2024 11:27 AM EDT) Influenza A Negative Negative, Indeterminate [facility] Swab 08/19/2024 11:2 7 AM EDT us Jordy Downs MD POINT OF CARE TEST ENTER/EDIT OR DERABLES Final Result Performing Organization Address [facility] Co de Phone Number [facility] [address] [place] [address] [phone] * POCT Rapid COVID Ag (08/19/2024 11:27 AM EDT) Rapid COVID Ag Negative [facility] Swab 08/19/2024 11:2 7 AM EDT Jordy Downs MD POINT OF CARE TEST ENTER/EDIT OR DERABLES Final Result Performing Organization Address [facility] Co de Phone Number [facility] [address] [place] [address] [phone] documented in this encounter Visit Diagnoses Diagnosis Vomiting, unspecified vomiting type, unspecified whether nausea present documented in this encounter Additional Health Concerns Assessment Noted Time PHQ-9 Depression Total Score: 10 024 12:52 PM EDT documented as of this encounter Care Teams Shampoo Person Relationship Specialty Start Date End Date Edwige Headley MD [address] [place] [address] PCP - General Family Medicine 08/21/22 documented as of this encounter
--- OUTSIDE RECORDS SUMMARY | 2024-08-22 16:21 | XMS_ITS | Encounter Summary ---
Author Organization [employer] Address [address] [facility] [address] [facility] [address] 7t [place] [address] Care Team Providers Care Financial Services Officer Name Role Phone Edwige Headley MD Primary Care Provider [phone] Reason for Visit * Reason Onset Date Comments PT-1 03/28/2024 Encounter Details Date Type Department Care Team ([facility] st Contact Info) Description 03/28/2024 Telephone [facility] MEDICINE 230 [place] [address] Edwige Headley MD 505 [place] [address] PT-1 Social History Tobacco Use Types Packs/Day [...] Y/N: Yes Provider name or facility name: [facility] Facility Address: [address] [place] [address] Escort needed: Y/N: Yes Do you have a wheelchair: Y/N: No If yes- Manual or electric: (Uses Walker) Visits: Once a month documented in this encounter Plan of Treatment Upcoming Encounters Date Type Department Care Team (Late st Contact Info) Description 09/14/2024 10:30 AM EDT Clinical Support [facility] MED & PEDS 505 [place] [address] Maria Guadalupe Rodríguez RN 505 [place] [address] documented as of this encounter Goals Goal [...] documented as of this encounter Care Teams Financial Services Officer Relationship Specialty Start Date End Date Edwige Headely MD [address] [place] [address] PCP - General Family Medicine 08/21/22 documented as of this encounter
--- OUTSIDE RECORDS SUMMARY | 2024-08-22 16:21 | XMS_ITS | Encounter Summary ---
Author Organization [employer] Address [address] [facility] [address] [facility] [address] 7t [place] [address] Care Team Providers Care Agricultural Education Instructor Name Role Phone Edwige Headley MD Primary Care Provider [phone] Reason for Visit * Reason Onset Date Comments Appointment Request 08/17/2024 Encounter Details Date Type Department Care Team ([facility] st Contact Info) Description 08/17/2024 Telephone [facility] MEDICINE 230 [place] [address] Edwige Headley MD 505 [place] [address] Appointment Request Social History Tobacco Use Types [...] encounter Miscellaneous Notes * Telephone Encounter - Michelle Meeks - 08/17/2024 2:00 PM EDT Tc from pt requesting r/s 08/24 appt with Maria Guadalupe. documented in this encounter Plan of Treatment Upcoming Encounters Date Type Department Care Team (Late st Contact Info) Description 09/14/2024 10:30 AM EDT Clinical Support [facility] MED & PEDS 505 [place] [address] Maria Guadalupe Rodríguez, RN 505 [place] [address] documented as of this encounter Goals Goal [...] documented as of this encounter Care Teams Agricultural Education Instructor Relationship Specialty Start Date End Date Edwige Headley MD 230 [place] [address] PCP - General Family Medicine 08/21/22 documented as of this encounter
--- OUTSIDE RECORDS SUMMARY | 2024-08-22 16:21 | XMS_ITS | Encounter Summary ---
Author Organization [employer] Address [address] [facility] [address] 7t [place] [address] Care Team Providers Care Operators School Manager Name Role Phone Edwige Headley MD Primary Care Provider [phone] Reason for Visit * Reason Comments Med Refill Encounter Details Date Type Department Care Team ([facility] st Contact Info) Description 10/16/[address] [facility] MED & PEDS 505 [place], [place] [phone] Edwige Headley MD 505 [place] [address] Social History Tobacco Use Types Packs/Day Years [...] Description 09/14/2024 10:30 AM EDT Clinical Support [facility] MED & PEDS 505 [place] [address] Maria Guadalupe Rodríguez, RN 505 [place] [address] documented as of this encounter Goals Goal [...] documented as of this encounter Care Teams Operators School Manager Relationship Specialty Start Date End Date Edwige Headley MD 230 [place] [address] PCP - General Family Medicine 08/21/22 documented as of this encounter
--- OUTSIDE RECORDS SUMMARY | 2024-08-22 16:21 | XMS_ITS | Encounter Summary ---
Author Organization [employer] Address [address] [facility] [facility] [address] [place] [address] Care Team Providers Care Dining Room Attendant Name Role Phone Edwige Headley MD Primary Care Provider [phone] Encounter Details Date Type Department Care Team (Late st Contact Info) Description 08/03/2024 Orders Only [facility] MEDICINE 230 [place] [address] Radha Renee MD 505 [place] [address] Alzheimer's disease, unspecified (CODE) ([facility]) Social History Tobacco Use Types [...] Description 09/14/2024 10:30 AM EDT Clinical Support [facility] MED & PEDS 505 [place] [address] Maria Guadalupe Rodríguez, RN 505 [place] [address] documented as of this encounter Goals Goal Patient Goal Type Associated Problems Recent Progress Patient-Stated? Author Use the inhalers as prescribed by provider; Flovent HFA scheduled and albuterol as needed General No Marcel Garcia, PharmD Take your medication every day Lifestyle No Marcel Garcia PharmD documented as of this encounter Visit Diagnoses Diagnosis Alzheimer's disease, unspecified (CODE) ([facility]) documented in this encounter Additional Health Concerns Assessment Noted Time PHQ-9 Depression Total Score: 10 024 12:52 PM EDT documented as of this encounter Care Teams Dining Room Attendant Relationship Specialty Start Date End Date Edwige Headley MD 230 [place] [address] PCP - General Family Medicine 08/21/22 documented as of this encounter
--- OUTSIDE RECORDS SUMMARY | 2024-08-22 16:21 | XMS_ITS | Encounter Summary ---
Author Organization [employer] Address [address] [facility] [address] [facility] [address] 7[address] [place] [address] Care Team Providers Care Customer Engineering Specialist Name Role Phone Edwige Headley MD Primary Care Provider [phone] Reason for Visit * Reason Onset Date Comments emergency dispatcher 08/17/2024 Encounter Details Date Type Department Care Team ([facility] st Contact Info) Description 08/17/2024 Telephone C [facility] 505 [place] [address] Maria Guadalupe Rodríguez, RN 505 [place] [address] emergency dispatcher Social History Tobacco Use Types Packs/Day Years [...] encounter Miscellaneous Notes * Telephone Encounter - Maria Guadalupe Rodríguez RN - 08/17/2024 3:03 PM EDT TC back to pt via S ID# [id number]. COLLAR FOLDER OPERATOR appt r/s to 09/14/24 @10:30am. documented in this encounter Plan of Treatment Upcoming Encounters Date Type Department Care Team (Late st Contact Info) Description 09/14/2024 10:30 AM EDT Clinical Support [facility] MED & PEDS 505 [place] [address] Maria Guadalupe Rodríguez, AC 505 [place] [address] documented as of this encounter Goals Goal [...] documented as of this encounter Care Teams Customer Engineering Specialist Relationship Specialty Start Date End Date Edwige Headley MD 230 [place] [address] PCP - General Family Medicine 08/21/22 documented as of this encounter
--- OUTSIDE RECORDS SUMMARY | 2024-08-22 16:21 | XMS_ITS | Encounter Summary ---
Author Organization [employer] Address [address] [facility] [address] 7t [place] [address] Care Team Providers Care Rag Inspector Name Role Phone Edwige Headley MD Primary Care Provider [phone] Reason for Visit * Reason Onset Date Comments Nurse Triage 08/17/2024 Encounter Details Date Type Department Care Team ([facility] st Contact Info) Description 08/17/2024 Telephone [facility] MEDICINE 230 [place] [address] Edwige Headley MD 505 [place] [address] Nurse Triage Social History Tobacco Use Types [...] Miscellaneous Notes * Telephone Encounter - Michelle Dimas LPN - 08/17/2024 11:17 AM EDT Call returned with [employer] [phone] Luis A. Patient reports that she is having severe pain in the left hand and that she was seen on 07/27/24 and xrays completed. Patient feels that this pain is not related to arthritis and that she had trigger finger of the opposite hand one year ago and these symptoms and pain are similar. Patient reportsthat she is unable to make a fist and that 3rd -5th fingers are affected. No fever or spreading redn ess. Patient is seeking referral for ortho or construction administrative assistant to address concerns as she is declining the OT referral as placed at last visit. Disposition reviewed and patient in agreement with plan. QUAN/ tomorrow at 845am. Protocol Used: Hand Pain (Adult) Protocol-Based Disposition: See in Office or Video Visit within 3 Days Video visit offered and caller accepted Positive Triage Question: * Patient wants to be seen * All higher-acuity triage questions were negative Care Advice Discussed: * Reasons To Call Back - Signs of infection occur (such as spreading redness, warmth, fever) - You become worse * Telephone Encounter - Michelle Meeks - 08/17/2024 10:36 AM EDT Symptom: Hand or Wrist Pain - Not From Injury (left hand, 3 fingers.) Outcome: Schedule an urgent appointment (within 1 hour) or talk to a nurse or provider soon Reason: Can't use the hand normally The caller accepted this outcome. [phone] ukrainian documented in this encounter Plan of Treatment Upcoming Encounters Date Type Department Care Team ([facility] st Contact Info) Description 09/14/2024 10:30 AM EDT Clinical Support [facility] MED & PEDS 505 [place] [address] Maria Guadalupe Rodríguez, RN 505 [place] [address] documented as of this encounter Goals Goal [...] documented as of this encounter Care Teams Rag Inspector Relationship Specialty Start Date End Date Edwige Headley MD 230 [place] [address] PCP - General Family Medicine 08/21/22 documented as of this encounter
--- OUTSIDE RECORDS SUMMARY | 2024-08-22 16:21 | XMS_ITS | Encounter Summary ---
Author Organization [employer] Address [address] [facility] [address] 7[address] [place] [address] Care Team Providers Care Rn Medical Inpatient Services Name Role Phone Edwige Headley MD Primary Care Provider [phone] Reason for Visit * Reason Onset Date Comments Lab Orders 07/06/2024 Encounter Details Date Type Department Care Team ([facility] st Contact Info) Description 07/06/2024 Telephone [facility] MEDICINE 230 [place] [address] Edwige Headley MD 505 [place] [address] Lab Orders Social History Tobacco Use Types [...] TC x 3 placed to pt via [employer] preschool teacher (Ace ID#[id number]) to inform a tuberculosis lab order was placed by the provider for her to have done at her convenience. Pt verbalized understanding and deniesquestions or concerns at this time. * Telephone Encounter - Mau Overton - 07/06/2024 4:20 PM EST Tc from pt returning call. Pt needs an Floor Layer Helper. * Telephone Encounter - Zoë Dorantes RN - 07/06/2024 3:33 PM EST TC placed to pt via [employer] preschool teacher (ID#[id number]) to inform a tuberculosis lab order was [...] Description 09/14/2024 10:30 AM EDT Clinical Support [facility] MED & PEDS 505 [place], [place] [phone] Maria Guadalupe Rodríguez, RN 505 [place], [place] documented as of this encounter Goals [...] AM EST) T Spot TB Negative Negative [facility] Comment:A negative test resu lt [...] as aquantitative test. TS PANEL A 0 [facility] TS PANEL B 0 [facility] Negative Control Passed [facility] Positive Control Passed [facility] Comment:For additional infor nika, please refer tohttp://education.questdiagnostics.com/faq/UTP896(This link is being provided for informational/educational purposes only.)THIS TEST WAS PERFORMED AT:[id number] [place] [address]EFHUAWP W. MASON,MD,PHD 07/07/2024 9:23 AM EST 07/07/2024 1:55 PM EST us Edwige Headley MD LAB BLOOD ORDERABLES Final Re sult [facility] [address] [place] [phone] documented in this encounter Visit Diagnoses Diagnosis Encounter for screening for respiratory tuberculosis documented in this encounter Additional Health Concerns Assessment Noted Time PHQ-9 Depression Total Score: 10 06/2 024 12:52 PM EDT documented as of this encounter Care Teams Rn Medical Inpatient Services Relationship Specialty Start Date End Date Edwige Headley MD [address] [place] [id number] PCP - General Family Medicine 08/21/22 documented as of this encounter
--- OUTSIDE RECORDS SUMMARY | 2024-08-22 16:21 | XMS_ITS | Encounter Summary ---
Author Organization [employer] Address [address] [facility] [address] [place] [address] Care Team Providers Care Rail Crew Member Name Role Phone Edwige Headley MD Primary Care Provider [phone] Encounter Details Date Type Department Care Team (Latest Contact Info) Description 08/18/2024 Travel Social History Tobacco Use Types Packs/Day [...] Description 09/14/2024 10:30 AM EDT Clinical Support [facility] MED & PEDS [address] [place] [address] Maria Guadalupe Rodríguez, RN [address] [place] [address] documented as of this encounter Goals Goal [...] documented as of this encounter Care Teams Rail Crew Member Relationship Specialty Start Date End Date Edwige Headley MD [address] [place] [address] PCP - General Family Medicine 08/21/22 documented as of this encounter
--- OUTSIDE RECORDS SUMMARY | 2024-08-22 16:21 | XMS_ITS | Encounter Summary ---
Author Organization [employer] Address [address] [facility] 7t [place] [address] Care Team Providers Care Head Golf Professional Name Role Phone Edwige Headley MD Primary Care Provider [phone] Reason for Referral * Consultation (Routine) - Authorized Specialty Diagnoses / Procedures Referred By Contac t Referred To Contact Hand Surgery Diagnoses Trigger middle finger of left hand Robert High MD [address] [place] [address] Phone: tel: fax: [facility] [address] [place] [address] Phone: tel: Referral ID Status Reason Start Date Expiration Date Visits Requested Visits Authorized [id number] Authorized Specialty Services Required 08/18/2024 08/18/2025 1 1 Encounter Details Date Type Department Care Team (Late st Contact Info) Description 08/18/2024 8:45 AM EDT Telemedicine [facility] & PEDS [address] [place] [address] Robert High MD [address] [place] [address] Trigger middle finger of left hand (Primary Dx) Social History Tobacco Use Types Packs/Day Years [...] as of this encounter Progress Notes * Robert Diaz MD - 08/18/2024 8:45 AM EDT Subjective Patient ID: Ed Hoffmann is a 79 y.o. female who presents for No chief complaint on file.. Hand Pain There was no injury mechanism. The pain is present in the left fingers. The quality of the pain is described as aching. The pain is at a severity of 5/10. The pain is moderate. Pertinent negatives include no chest pain, muscle weakness, numbness or tingling. Review of Systems Cardiovascular: Negative for chest pain. Neurological: Negative for tingling and numbness. Objective Physical Exam Neurological: General: No focal deficit present. Mental Status: She is oriented to person, place, and time. Psychiatric: Mood and Affect: Mood normal. Behavior: Behavior normal. Assessment/Plan Problem List Items Addressed This Visit None Visit Diagnoses Trigger middle finger of left hand - Primary Will refer to hand surgery, complains of triger finger on 3rd/4th/5th finger, worse on 3rd, no swelling, continue tylenol/ibuprofen for pain as needed Relevant Orders Referral to Hand Surgery documented in this encounter Plan of Treatment Upcoming Encounters Date Type Department Care Team (Late st Contact Info) Description 09/14/2024 10:30 AM EDT Clinical Support [facility] [address] [place] [address] Maria Guadalupe Rodríguez, RN [address] [place] [address] Scheduled Referrals Name Type Priority Associated Diagnoses Orde r Schedule Referral to Hand Surgery Outpatient Referral Routine Trigger middle finger of left hand Expected: 08/18/2024 (Approximate), Expires: 08/18/2025 documented as of this encounter Goals Goal Patient Goal Type Associated Problems Recent Progress Patient-Stated? Author Use the inhalers as prescribed by provider; Flovent HFA scheduled and albuterol as needed General No Marcel Garcia, PharmD Take your medication every day Lifestyle No Marcel Garcia, PharmD documented as of this encounter Visit Diagnoses Diagnosis Trigger middle finger of left hand- Primary documented in this encounter Additional Health Concerns Assessment Noted Time PHQ-9 Depression Total Score: 10 10/28/2 024 12:52 PM EDT documented as of this encounter Care Teams Head Golf Professional Relationship Specialty Start Date End Date Edwige Headley MD [address] [place] [address] PCP - General Family Medicine 08/21/22 documented as of this encounter
--- OUTSIDE RECORDS SUMMARY | 2024-08-22 16:21 | XMS_ITS | Encounter Summary ---
Author Organization [employer] Address [address] [facility] [address] [place] [address] Care Team Providers Care Universal Grinder Operator Name Role Phone Edwige Headley MD Primary Care Provider [phone] Encounter Details Date Type Department Care Team (Latest Contact Info) Description 08/17/2024 Travel Social History Tobacco Use Types Packs/Day [...] 10:30 AM EDT Clinical Support [facility] MED & PEDS [address] [place] [address] Maria Guadalupe Rodríguez, RN [address] [place] [address] documented as of this encounter Goals Goal [...] documented as of this encounter Care Teams Universal Grinder Operator Relationship Specialty Start Date End Date Edwige Headley MD [address] [place] [address] PCP - General Family Medicine 08/21/22 documented as of this encounter
--- OUTSIDE RECORDS SUMMARY | 2024-08-22 16:21 | XMS_ITS | Data Portability ---
Author Organization [employer] [facility] [employer] Address [address] [place] [phone] Care Team Providers Care Harbor Department Manager Name Role Phone HIM [facility] OTHER [facility] OTHER [phone] Assessment Encounter Date Assessment Date Assessment LastModified by Organization Details LastModified Time 10/13/2023 10/13/2023 I have reviewed and agree with the assessment and plan as documented by the hand packager. I provided real-time medical direction for this [...] one 1 % topical cream 2023 024 [facility], [address] [place] [address], [phone], 14:48:38 Patient TargetsNo targets recorded. Patient InstructionsNo [...] Not Available Not Available No t Available Differential DynamicsTouch Ultra Test strips TEST BLOOD SUGAR EVERY [...] Updated DateTime 4 99 % 99 % 16522.6 16 g 16 /min 98.1 [degF] 86 /min 138 mm[Hg] 90 mm[Hg] Not Available [employer] - production 4 18:14:31 Social History None recorded. Functional Status None recorded. Mental Status None recorded. Family History Nothing Reported. Medical History No medical history recorded. Gynecological HistoryNo gynecological history recorded. Obstetrics History GPAL:G 0 P 0 0 0 0 Past Encounters Encounter ID Performer Location Encounter Start Date Encounter Closed Date Diagnosis/Indication Diagnosis SNOMED-CT Code Diagnosis ICD10 Code Diagnosis Note [id number] Rita Haile MD [facility] - [facility] [address] [place] [address] 10/13/2023 18:14:24 10/14/2023 10:34:19 Contact dermatitis 60128603 L25.9 Health Concerns Section Related Observation LastModified by Organization Detai ls LastModified Time None Recorded Concern Status LastModified by Organization Details LastModified Time None Recorded Advance Directives Directive None Recorded Payers Encounter Date Sequence Insurance Name Policy Number Policy Sifuentes Covered Member ID Sifuentes Member ID Guarantor Name 10/13/2023 1 [facility] - DOS ON OR AFTER 2022 - DUAL ELIGIBLE - FDC OPTIONS AND ONE CARE (MEDICARE REPLACEMENT/ADV ANTAGE - HMO) Ed Hoffmann [id number] Ed Hoffmann Notes Date Note Type Note [...] .................... .................... .................... .................... .................... .................... . Wind Energy Mechanic Note From Michael Nielson: Pt co rash/redness [...] . Disposition: Fulfilled Rita Haile MD [address] [facility],[address], [place], [address], [facility] 10/13/2023 19:19:35 OBGyn Episode No OBEpisode recorded.
== END 2024-08-22 14:04 | disposition home or self-care (01) ==
PROVIDERS: PCP Family Medicine; Visit Provider Nurse Practitioner Family
DX: I25.10 Atherosclerotic heart disease of native coronary artery without angina pectoris (principal); R07.9 Chest pain, unspecified; R06.02 Shortness of breath; I10 Essential (primary) hypertension; I50.32 Chronic diastolic (congestive) heart failure
CPT/HCPCS: 99214; G2211

== ENCOUNTER → 2024-08-22 13:25 | Outpatient (BNVA) | payer OTHER, SELFPAY | PROVIDERS: PCP Family Medicine; Visit Provider Nurse Practitioner Family | DX: I25.10 Atherosclerotic heart disease of native coronary artery without angina pectoris (principal); I11.0 Hypertensive heart disease with heart failure; I50.32 Chronic diastolic (congestive) heart failure; R07.9 Chest pain, unspecified; R06.02 Shortness of breath | CPT/HCPCS: 99212 ==

== ENCOUNTER 2024-09-06 14:29 | Outpatient (AMB) | payer OTHER, SELFPAY ==
--- NOTE | 2024-09-06 14:37 | A.OFFVIS_ITS ---
Vital Signs 09/06/24 14:38 Height 5 ft Weight 119 lb BMI 23.2 Intake Visit Reasons: Newprob-Trigger SF, RF, MF of LT hand-Limited ROM Intake Note: Ed 79 yr old right hand dominant female presents today for a new problem visit with her daughter Telly her for her left hand SF, RF, MF. States her fingers are locking. She is experiencing pain when she has to pop her finger straight. This started a few months ago and is getting worse. She is not able to make a tight close fist. She is also limited ROM. Oxygen Therapy Teacher Name: Enedelia TELLEZ/ALBINO Allergies pregabalin [From Lyrica] Allergy (Intermediate, Verified 09/06/24 14:41) Rash HPI HPI Newprob-Trigger SF, RF, MF of LT hand-Limited ROM: Details: Ed is a 78 year old right hand dominant Romanian speaking Diabetic woman who returns with new complaints of multiple left hand trigger fingers. She has a Hx of a right index trigger finger release, DOS: 10/25/23. She is seen today with her daughter. She complains of painful locking of her left middle and ring fingers. She finds difficulty with gripping activities. She has not been moving her hand often and has difficulty making a fist She ambulates using a walker. She has an extensive medical history, including Fibromyalgia, asthma, COPD, DM, CHF, CVD, Dementia, & Alzheimer's. No HgA1c on file. [facility] Medical History (Updated 09/06/24 @ 15:15 by Cole Coronel) Atherosclerotic cardiovascular disease PVD (peripheral vascular disease) Breast nodule Urinary incontinence Osteoporosis Dementia in Alzheimer's disease Chronic diastolic (congestive) heart failure Hypertension Vitamin D deficiency Carpal tunnel syndrome Cervical disc disorder CKD (chronic kidney disease), stage II TONY (generalized anxiety disorder) Vertigo CAD (coronary artery disease) GERD (gastroesophageal reflux disease) Migraine Diabetes mellitus Asthma Surgical History H/O hand surgery Hx of cardiac catheterization History of hernia repair History of left inguinal hernia repair History of right inguinal hernia repair History of cholecystectomy Hx of colonoscopy History of esophagogastroduodenoscopy (EGD) Family History Mother Heart problem Arthritis Social History Household Members: Spouse, Family and Children Housing: House Alcohol intake: never Patient Tobacco Use Status: Never used Tobacco Second Hand Smoke Exposure: No service: No Review of Systems Const All systems reviewed & are unremarkable except as noted in HPI and below Physical Exam Vital Signs: BMI result Body Mass Index 23.2 Const General: no acute distress and alert Orientation/consciousness: patient oriented x3 Neuro General: patient oriented x3 Extrem Other: Evaluation of Left Upper Extremity: The patient is alert, oriented, and in no acute distress Neuro: Median, Ulnar, Radial nerves motor and sensory intact and sensation is normal to the tips of all digits Vascular: Cap refill brisk ROM: Initially she would only bring her fingertips actively to ~6cm form her palm We worked on ROM exercises today in clinic for >15 minutes Before leaving clinic she could make a fist and extend all her digits Visible locking & catching of the ring finger Tender over the ring & middle finger a1 patricia Following her trigger injections, she was able to make a tight fist. This caused visible locking & catching of the index finger No tenderness over the thumb, index, or small finger a1 pulleys Psych Appearance: grossly normal Affect: normal affect Attitude: cooperative Office Procedures AMB Fracture Care Details: no fx, inj 25802v8 Fracture Billing Code: Fracture Billing Code Assessment & Plan Assessment & Plan (1) Trigger finger, left middle finger: Code(s): M65.332 - Trigger finger, left middle finger Category: Medical (2) Trigger ring finger of left hand: Code(s): M65.342 - Trigger finger, left ring finger Category: Medical (3) Fibromyalgia, primary: Code(s): M79.7 - Fibromyalgia Category: Medical (4) Diabetes mellitus: Code(s): E11.9 - Type 2 diabetes mellitus without complications Category: Medical (5) Dementia in Alzheimer's disease: Code(s): G30.9 - Alzheimer's disease, unspecified; F02.80 - Dementia in other diseases classified elsewhere, unspecified severity, without behavioral disturbance, psychotic disturbance, mood disturbance, and anxiety Category: Medical (6) Trigger index finger of left hand: Code(s): M65.322 - Trigger finger, left index finger Category: Medical Plan Assessment & Plan: 1. Left ring finger trigger finger This is her chief complaint today 2. Left middle finger pre-trigger tenosynovitis I educated her and her daughter about this condition I discussed operative and non-operative treatment options The patient would like to proceed with an injection Injection #1: The risks and benefits of a steroid injection including but not limited to risk of damage to blood vessels, nerves, tendons, infection, skin bleaching, failure to improve symptoms, increased pain, and possible need for further injections or other intervention were discussed with the patient and the patient wishes to proceed with the steroid injection. Once consent was obtained, I sterilely prepped the area over the A1 patricia of the flexor tendon sheath of the Left middle finger. I then injected the flexor tendon sheath with a combination of 1 mL of dexamethasone (4mg/ml), and 1% lidocaine. The patient tolerated the procedure well with no complications. If the patient continues to have locking and catching 4-6 weeks following this injection, they may call to schedule appointment to discuss alternative treatment options Injection #2: The risks and benefits of a steroid injection including but not limited to risk of damage to blood vessels, nerves, tendons, infection, skin bleaching, failure to improve symptoms, increased pain, and possible need for further injections or other intervention were discussed with the patient and the patient wishes to proceed with the steroid injection. Once consent was obtained, I sterilely prepped the area over the A1 patricia of t he flexor tendon sheath of the Left ring finger. I then injected the flexor tendon sheath with a combination of 1 mL of dexamethasone (4mg/ml), and 1% lidocaine. The patient tolerated the procedure well with no complications. If the patient continues to have locking and catching 4-6 weeks following this injection, they may call to schedule appointment to discuss alternative treatment options Follow-up prn 3. Left index finger trigger finger Not painful at this time 4. Right index finger trigger finger, S/P release DOS: 10/25/23 Doing well, no complaints Scribed for Oriana Beckford MD by Cole Coronel, medical science liaison, on 09/06/24 at 2:45 PM, EST. Scribe Plan - Not visible on output: Scribed for Oriana Beckford MD by Cole Coronel medical science liaison, on [ ] at [ ], EST. Coding Level of Care Code Est Pt Level 4 (55902) Diagnoses Trigger finger, left middle finger M65.332 Trigger ring finger of left hand M65.342 Fibromyalgia, primary M79.7 Diabetes mellitus E11.9 Dementia in Alzheimer's disease G30.9; F02.80 Trigger index finger of left hand M65.322 CPT Codes Fracture Care - Fracture Billing Code: Fracture Billing Code ([id number])
[2024-09-06 14:38] VITALS: BMI 23.2
--- OUTSIDE RECORDS SUMMARY | 2024-09-06 17:23 | XMS_ITS | Encounter Summary ---
Author Organization [employer] Address [address] [facility] [address] [place] [address] Care Team Providers Care Aircraft Fueler Name Role Phone Edwige Headley MD Primary Care Provider [phone] Reason for Visit * Reason Onset Date Comments Appointment Request 08/17/2024 Encounter Details Date Type Department Care Team ([facility] st Contact Info) Description 08/17/2024 Telephone [facility] MEDICINE [address] [place] [address] Edwige Headley MD [address] [place] [address] Appointment Request Social History Tobacco Use Types [...] Description 09/14/2024 10:30 AM EDT Clinical Support [facility] MED & PEDS [address] [place] [address] Maria Guadalupe Rodríguez, RN [address] [place] [address] documented as of this encounter Goals Goal [...] documented as of this encounter Care Teams Aircraft Fueler Relationship Specialty Start Date End Date Edwige Headley MD [address] [place] [address] PCP - General Family Medicine 08/21/22 documented as of this encounter
--- OUTSIDE RECORDS SUMMARY | 2024-09-06 17:23 | XMS_ITS | Encounter Summary ---
Author Organization [employer] Address [address] [facility] [address] [place] [address] Care Team Providers Care Program Planner Name Role Phone Edwige Headley MD Primary Care Provider [phone] Encounter Details Date Type Department Care Team (Late st Contact Info) Description 08/03/2024 Orders Only [facility] MEDICINE [address] [place] [address] Radha Renee MD [address] [place] [address] Alzheimer's disease, unspecified (CODE) ([facility]) Social History Tobacco Use Types Packs/Day [...] EDT Clinical Support [facility]EDS [address] [place] [address] Maria Guadalupe Rodríguez, RN [address] [place] [address] documented as of this encounter Goals Goal Patient Goal Type Associated Problems Recent Progress Patient-Stated? Author Use the inhalers as prescribed by provider; Flovent HFA scheduled and albuterol as needed General No Marcel Garcia, PharmD Take your medication every day Lifestyle No Marcel Garcia PharmD documented as of this encounter Visit Diagnoses Diagnosis Alzheimer's disease, unspecified (CODE) (CMS/[facility]) documented in this encounter Additional Health Concerns Assessment Noted Time PHQ-9 Depression Total Score: 10 024 12:52 PM EDT documented as of this encounter Care Teams Program Planner Relationship Specialty Start Date End Date Edwige Headley MD [address] [place] [address] PCP - General Family Medicine 08/21/22 documented as of this encounter
--- OUTSIDE RECORDS SUMMARY | 2024-09-06 17:23 | XMS_ITS | Encounter Summary ---
Author Organization [employer] Address [address] [facility] [address] [place] [address] Care Team Providers Care Head Of Research & Insights Name Role Phone Edwige Headley MD Primary Care Provider [phone] Reason for Visit * Reason Onset Date Comments Appointment Request 04/06/2024 Encounter Details Date Type Department Care Team ([facility] st Contact Info) Description 04/06/2024 Telephone [facility] MEDICINE [address] [place] [address] Edwige Headley MD [address] [place] [address] Appointment Request Social History Tobacco Use Types [...] somewhere else. Contac pt to r/s at [phone] documented in this encounter Plan of Treatment Upcoming Encounters Date Type Department Care Team (Late st Contact Info) Description 09/14/2024 10:30 AM EDT Clinical Support [facility] MED & PEDS [address] [place] [address] Maria Guadalupe Rodríguez, AC [address] [place] [address] documented as of this encounter Goals Goal [...] as of this encounter Care Teams Head Of Research & Insights Relationship Specialty Start Date End Date Edwige Headley MD [address] [place] [address] PCP - General Family Medicine 08/21/22 documented as of this encounter
--- OUTSIDE RECORDS SUMMARY | 2024-09-06 17:23 | XMS_ITS | Encounter Summary ---
Author Organization [employer] Address [address] [facility] [address] [place] [address] Care Team Providers Care Skein Yarn Dyer Helper Name Role Phone Edwige Headley MD Primary Care Provider [phone] Reason for Visit * Reason Comments Med Refill Encounter Details Date Type Department Care Team ([facility] st Contact Info) Description 10/16/2023 Refill [facility] MED & PEDS [address] [place], [place] [phone] Edwige Headley MD [address] [place] [address] Social History Tobacco Use Types Packs/Day Years [...] [facility] [address] [place] [address] Maria Guadalupe Rodríguez, RN [address] [place] [address] documented as of this encounter Goals Goal [...] documented as of this encounter Care Teams Skein Yarn Dyer Helper Relationship Specialty Start Date End Date Edwige Headley MD [address] [place] [address] PCP - General Family Medicine 08/21/22 documented as of this encounter
--- OUTSIDE RECORDS SUMMARY | 2024-09-06 17:23 | XMS_ITS | Encounter Summary ---
Author Organization [employer] Address [address] [facility] [address] [place] [address] Care Team Providers Care Crisis Specialist Name Role Phone Edwige Headley MD Primary Care Provider [phone] Reason for Visit * Reason Comments Med Refill Encounter Details Date Type Department Care Team ([facility] st Contact Info) Description 08/13/2023 Refill [facility] MED & PEDS [address] [place], [place] [phone] Edwige Headley MD [address] [place] [address] Social History Tobacco Use Types Packs/Day Years [...] [facility] MED & PEDS [address] [place] [address] Maria Guadalupe Rodríguez, RN [address] [place] [address] documented as of this encounter Goals Goal [...] documented as of this encounter Care Teams Crisis Specialist Relationship Specialty Start Date End Date Edwige Headley MD [address] [place] [address] PCP - General Family Medicine 08/21/22 documented as of this encounter
--- OUTSIDE RECORDS SUMMARY | 2024-09-06 17:23 | XMS_ITS | Encounter Summary ---
Author Organization [employer] [facility] Address [address] [facility] [address] [place] [address] Care Team Providers Care Vine Pruner Name Role Phone Edwige Headley MD Primary Care Provider [phone] Reason for Visit * Reason Comments Med Refill Encounter Details Date Type Department Care Team ([facility] Contact Info) Description 12/04/2022 Refill [facility] MED & PEDS [address] [place] [address] Edwige Headley MD [address] [place] [address] Social History Tobacco Use Types Packs/Day Years [...] Upcoming Encounters Date Type Department Care Team ([facility] Contact Info) Description 09/14/2024 10:30 AM EDT Clinical Support [facility] MED & PEDS [address] [place] [address] Maria Guadalupe Rodríguez, AC [address] [place] [address] documented as of this encounter Goals Goal [...] documented as of this encounter Care Teams Vine Pruner Relationship Specialty Start Date End Date Edwige Headley MD [address] [place] [address] PCP - General Family Medicine 08/21/22 documented as of this encounter
--- OUTSIDE RECORDS SUMMARY | 2024-09-06 17:23 | XMS_ITS | Encounter Summary ---
Author Organization [employer] Address [address] [place] [address] Care Team Providers Care Plastics Plater Name Role Phone Edwige Headlye MD Primary Care Provider [phone] Reason for Visit * Reason Onset Date Comments Hospital Follow-up 05/25/2024 Encounter Details Date Type Department Care Team ([facility] st Contact Info) Description 05/25/2024 Telephone [facility] MEDICINE [address] [place] [address] Edwige Headley MD [address] [place] [phone] Hospital Follow-up Social History Tobacco Use Types [...] from pt requesting a HDF appt. Hospital: [facility] Date of admission: 05/16/2024 Discharge date: 2024 Diagnosed: Discuss with pt. *Send message to [facility] Clinical Care Coordinators documented in this encounter Plan of Treatment Upcoming Encounters Date Type Department Care Team (Late st Contact Info) Description 09/14/2024 10:30 AM EDT Clinical Support [facility]C MED & PEDS [address] [place] [address] Maria Guadalupe Rodríguez, AC [address] [place] [address] documented as of this encounter Goals Goal [...] documented as of this encounter Care Teams Plastics Plater Relationship Specialty Start Date End Date Edwige Headley MD [address] [place] [address] PCP - General Family Medicine 08/21/22 documented as of this encounter
--- OUTSIDE RECORDS SUMMARY | 2024-09-06 17:23 | XMS_ITS | Encounter Summary ---
Author Organization [employer] Address [address] [place] [address] Care Team Providers Care Geopolitics Teacher Name Role Phone Edwige Headley MD Primary Care Provider Encounter Details Date Type Department Care Team ([facility] st Contact Info) Description 10/22/2022 Telephone C [facility] MED & PEDS [address] [place], [place] [phone] Edwige Headley MD [address] [place] [address] Social History Tobacco Use Types Packs/Day Years [...] a call in regards to message above. (Citizen [place] speaker) * Telephone Encounter - Inez Martinez - 10/22/2022 3:31 PM EDT TC from pt requesting help to schedule her gastro appt . Please call to clarify . documented in this encounter Plan of Treatment Upcoming Encounters Date Type Department Care Team (Late st Contact Info) Description 09/14/2024 10:30 AM EDT Clinical Support [facility] MED & PEDS [address] [place] [address] Maria Guadalupe Rodríguez, RN [address] [place] [address] documented as of this encounter Goals Goal [...] documented as of this encounter Care Teams Geopolitics Teacher Relationship Specialty Start Date End Date Edwige Headley MD [address] [place] [address] PCP - General Family Medicine 08/21/22 documented as of this encounter
--- OUTSIDE RECORDS SUMMARY | 2024-09-06 17:23 | XMS_ITS | Data Portability ---
Author Organization [employer] [facility] [place] [facility] Address [address] [place] [phone] Care Team Providers Care Courtesy Van Driver Name Role Phone HIM [facility] OTHER [facility] OTHER [phone] Assessment Encounter Date Assessment Date Assessment LastModified by Organization Details LastModified Time 10/13/2023 10/13/2023 I have reviewed and agree with the assessment and plan as documented by the gasoline dragline operator. I provided real-time medical direction for this [...] one 1 % topical cream 2023 024 [facility], [address] [place] [address], [phone], 14:48:38 Patient TargetsNo targets recorded. Patient InstructionsNo [...] Not Available Not Available No t Available OfferSavvyTouch Ultra Test strips TEST BLOOD SUGAR EVERY [...] Updated DateTime 4 99 % 99 % 48917.6 16 g 16 /min 98.1 [degF] 86 /min 138 mm[Hg] 90 mm[Hg] Not Available Box [employer] - production 4 18:14:31 Social History None recorded. Functional Status None recorded. Mental Status None recorded. Family History Nothing Reported. Medical History No medical history recorded. Gynecological HistoryNo gynecological history recorded. Obstetrics History GPAL:G 0 P 0 0 0 0 Past Encounters Encounter ID Performer Location Encounter Start Date Encounter Closed Date Diagnosis/Indication Diagnosis SNOMED-CT Code Diagnosis ICD10 Code Diagnosis Note [id number] Rita Haile MD Main - [facility]ED [address] [place] [phone] 10/13/2023 18:14:24 10/14/2023 10:34:19 Contact dermatitis 54300311 L25.9 Health Concerns Section Related Observation LastModified by Organization Detai ls LastModified Time None Recorded Concern Status LastModified by Organization Details LastModified Time None Recorded Advance Directives Directive None Recorded Payers Encounter Date Sequence Insurance Name Policy Number Policy Sifuentes Covered Member ID Sifuentes Member ID Guarantor Name 10/13/2023 1 [facility] - DOS ON OR AFTER 2022 - DUAL ELIGIBLE - SENIOR LIVING OPTIONS AND ONE CARE (MEDICARE REPLACEMENT/ADV ANTAGE - HMO) Ed Hoffmann [id number] Ed Hoffmann Notes Date Note Type Note [...] .................... .................... .................... .................... .................... .................... . Program Manufacturing Leader Note From Michael Nielson: Pt co rash/redness [...] . Disposition: Fulfilled Rita Haile MD [address] [facility],[address], [place], [address], [employer] 10/13/2023 19:19:35 OBGyn Episode No OBEpisode recorded.
--- OUTSIDE RECORDS SUMMARY | 2024-09-06 17:23 | XMS_ITS | Encounter Summary ---
Author Organization [employer] Address [address] [place] [address] Care Team Providers Care Net Sql Developer Name Role Phone Edwige Headley MD Primary Care Provider [phone] Reason for Visit * Reason Onset Date Comments Appointment Request 04/28/2024 Encounter Details Date Type Department Care Team ([facility] st Contact Info) Description 04/28/2024 Telephone [facility] MEDICINE [address] [place] [address] Edwige Headley MD [address] [place] [address] Appointment Request Social History Tobacco Use Types [...] - 04/28/2024 2:22 PM EST Pt canceled COMMODITY TRADER visit on 05/09 because will be out of town from 05/06 thru the holidays spending time with family . Pt would like to reschedule. documented in this encounter Plan of Treatment Upcoming Encounters Date Type Department Care Team (Late st Contact Info) Description 09/14/2024 10:30 AM EDT Clinical Support [facility] MED & PEDS 505 [place] [address] Maria Guadalupe Rodríguez, AC [address] [place], [place] documented as of this encounter Goals [...] documented as of this encounter Care Teams Net Sql Developer Relationship Specialty Start Date End Date Edwige Headley MD [address] [place] [address] PCP - General Family Medicine 08/21/22 documented as of this encounter
--- OUTSIDE RECORDS SUMMARY | 2024-09-06 17:23 | XMS_ITS | Clinical Summary ---
Author Organization [employer] Address [address] 7[address] [place] [address] Care Team Providers Care Television Repair Teacher Name Role Phone Edwige Headley MD Primary Care Provider [phone] Allergies Active Allergy Reactions Criticality Noted Date [...] each 023 Active Lancets (OneTouch Delica Plus Naeqga28H) misc 1 Units in the morning. Please [...] daily 100 each 11 024 2024 Active Diclofenac Sodium 1 % gel APPLY 2 GRAMS TOPICALLY TO AFFECTED AREA(S) THREE TIMES DAILY DIRECTED 350 g 1 024 Active lidocaine (Lidoderm) 5 % patch APPLY 1 PATCH TOPICALLY LEAVE ON FOR 12 HOURS AND OFF FOR 12 HOURS DIRECTED BY 30 patch 5 024 Active amLODIPine (Norvasc) 5 MG tabletIndicatio ns:Raynaud's phenomenon without gangrene Take 1 tablet (5 mg) by mouth Once per day. 30 tablet 025 2025 Active cyclobenzaprine (Flexeril) 10 MG [...] AT BEDTIME 90 tablet 1 025 Active calcium carbonate 1500 (600 Ca) MG tablet TAKE 1 TABLET BY MOUTH TWICE DAILY IN THE MORNING AND IN THE EVENING WITH FOOD 180 tablet 1 Active metFORMIN (Glucophage) 500 MG tablet TAKE [...] AT BEDTIME 90 tablet 1 025 Active memantine (Namenda) 5 MG tabletIndicatio ns:Alzheimer's disease, unspecified (CODE) ([facility]) Take 1 tablet (5 mg) by mouth 2 times daily. 60 tablet 2 Active gabapentin (Neurontin) 300 MG capsule TAKE 1 CAPSULE BY MOUTH THREE TIMES DAILY 90 capsule Active Diclofenac Sodium 1 % gelIndications: Left hand pain APPLY 2 GRAMS TOPICALLY TO AFFECTED AREA(S) THREE TIMES DAILY 100 g Active sucralfate (Carafate) 1 GM/10ML suspension TAKE 10 ML BY MOUTH EVERY 8 HOURS NEEDED WITH FOOD 900 mL 1 025 Active losartan (Cozaar) 25 MG tablet TAKE 1 TABLET BY MOUTH EVERY MORNING 90 tablet 1 Active Aspirin Low Dose 81 MG EC tablet TAKE 1 TABLET BY MOUTH EVERY MORNING 90 tablet 1 025 Active butalbital-acet aminophen-caffe ine 50-325-40 MG tabletIndicatio ns:Headache, common migraine, intractable TAKE 1 TABLET A DAY NEEDED. NOT TO USE THIS MEDICATION MORE THAN 3 TIMES A WEEK 8 tablet 025 Active traMADol (Ultram) 50 MG tabletIndicatio ns:Fibromyalgia Take 1 tablet (50 mg) by mouth every 12 (twelve) hours if needed for severe pain. 42 tablet 025 Active losartan (Cozaar) 25 MG tablet TAKE 1 TABLET BY MOUTH EVERY MORNING 90 tablet 1 024 04/22/ 2025 Discontinued Aspirin Low Dose 81 MG EC tablet TAKE 1 TABLET BY MOUTH EVERY MORNING 90 tablet 1 024 2024 Discontinued sucralfate (Carafate) 1 GM/10ML suspension TAKE 10 ML BY MOUTH EVERY 8 HOURS NEEDED WITH FOOD 900 mL 1 024 2024 Discontinued gabapentin (Neurontin) 300 MG capsule TAKE 1 CAPSULE BY MOUTH THREE TIMES DAILY 90 capsule 025 2024 Discontinued Diclofenac Sodium 1 % gelIndications: Left hand pain To apply to the affected area 3 times a day 100 g 025 2024 Discontinued butalbital-acet aminophen-caffe ine 50-325-40 MG tabletIndicatio ns:Headache, common migraine, intractable 1 tablet a day as needed. Not to use this medication more than 3 times a week 8 tablet 025 2024 Discontinued(R eorder (will not [...] swallow test came back normal. Referred to ironer machine Assessment & Plan (07/20/2023 9:51 PM EST): [...] be prescribed steroids. Recommended patient to call Sap Business Analyst to schedule an appointment to get further [...] daughter. PLAN: 1. Follow up with [facility]: Not recommended for follow-up 2. Patient goal is to be able to manage her symptoms without medication. 3. Behavioral Recommendations a. Referral to Ind. therapy b. Practice of Coping skills for Anxiety c. Contact this food writer for support as needed Encounters Date Type Department Care Team Description 09/05/[address] [facility] MEDICINE [address] [place] [address] Edwige Headley MD Headache, common migraine, intractable 09/05/[address] [facility] [address] [place] [address] Edwige Headley MD Appointment Request 09/05/[address] [facility] MED[facility] [address] [place] [address] Edwige Headley MD Fibromyalgia 09/03/[address] [facility] CH[facility] MED & PEDS [address] [place] [address] Edwige Headley MD 09/02/[address] [facility] MED & PEDS [address] [place] [address] Edwige Headley MD 08/29/[address] [facility] MED [facility] PEDS [address] [place] [address] Radha Renee MD Left hand pain 08/29/[address] [facility] MED [facility] PEDS [address] [place] [address] Maryuri Miller FNP 08/25/[address] [facility] [address] [place] [address] Edwige Headley MD VCare Form 08/19/2024 11:20 AM EDT Office Visit [facility] [address] [place] [address] Jordy Downs MD Vomiting, unspecified vomiting type, unspecified whether nausea present 08/18/2024 8:45 AM EDT Telemedicine [facility] MED & PEDS [address] [place] [address] Robert High MD Trigger middle finger of left hand (Primary Dx) 08/18/2024 Travel 08/17/2024 Travel 08/17/2024 Telephone [facility] [address] [place] [address] Maria Guadalupe Rodríguez, RN wire walker 08/17/[address] [address] Edwige Headley MD Appointment Request 08/17/[address] [facility] [address] [place] [phone] Edwige Headley MD Nurse Triage 08/03/[address] [facility] [address] [place] [phone] Radha Renee MD Alzheimer's disease, unspecified (CODE) ([facility]) 08/02/2024 Telephone [facility] [address] [place] [address] Paris Gamino, RN Results; Referral 07/30/[address] [facility] [address] [place] [phone] Maryuri Miller, RACHEL Alzheimer's disease, unspecified (CODE) (CMS/HCC) 07/27/2024 9:30 AM EDT Office Visit [facility] [address] [place] [address] Radha Renee MD Left hand pain (Primary Dx); Meralgia paresthetica of left side; Headache, common migraine, intractable 07/27/[address] [facility] [address] [place] [phone] Edwige Headley MD Fibromyalgia 07/27/2024 Travel 07/24/[address] [facility] [address] [place] [address] Edwige Headley MD 07/19/[address] [facility] [address] [place] [address] Nina Clemons MD Appointment Request 07/17/[address] [facility] [address] [place] [phone] Edwige Headley MD Nurse Triage 07/06/[address] [facility] [address] [place] [phone] Edwige Headley MD Alzheimer's disease, unspecified (CODE) ([facility]) 07/06/[address] [address] Edwige Headley MD Lab Orders 07/05/2024 Refill [facility] [address] [place] [address] Edwige Headley MD 06/26/2024 Refill [facility] [address] [place] [address] Edwige Headley MD 06/20/2024 1:00 PM EST Clinical Support [facility] [address] [place] [address] Maria Guadalupe Rodríguez RN Fibromyalgia 06/20/2024 Travel 06/20/2024 Refill [facility] [address] [place] [address] Maria Guadalupe Rodríguez RN Fibromyalgia 06/19/2024 2:45 PM EST Office Visit [facility] [address] [place] [address] Radha Renee MD Fibromyalgia (Primary Dx); Type 2 diabetes mellitus with hyperglycemia, without long-term current use of insulin ([facility]); Chronic diastolic heart failure ([facility]); Chronic obstructive pulmonary disease, unspecified COPD type ([facility]) 06/19/2024 Travel 06/13/[address] [facility] [address] [place] [address] Edwige Headley MD Fibromyalgia from Last 3 Months Immunizations Name Administration [...] Description 09/14/2024 10:30 AM EDT Clinical Support [facility] [address] [place] [address] Maria Guadalupe Rodríguez, RN [address] [place] [address] Health Maintenance Due Date Last Done Comments Eye Exam 1955 COVID-19 Vaccine ( season) 2024 07/20/2023 Lipid Panel 08/29/2024 08/30/2023, 08/21/2022 Depression Screening [...] without long-term current use of insulin (CMS/HCC) LIPID PANEL, STANDARD Routine 08/30/2023 10:36 AM EDT from Last 3 Months or Most Recently Relevant to Health Maintenance Results * Influenza B (ID NOW Rapid Molecular) (08/19/2024 11:27 AM EDT) Influenza B Negative Negative, Indeterminate [facility] Swab 08/19/2024 11:2 7 AM EDT Jordy Downs MD POINT OF CARE TEST ENTER/EDIT OR DERABLES Final Result [facility] [address] [place] [phone] * Influenza A (ID NOW Rapid Molecular) (08/19/2024 11:27 AM EDT) Influenza A Negative Negative, Indeterminate [facility] Swab 08/19/2024 11:2 7 AM EDT us Jordy Downs MD POINT OF CARE TEST ENTER/EDIT OR DERABLES Final Result Performing Organization Address [facility] de Phone Number [facility] [address] [place] [address] [phone] * POCT Rapid COVID Ag (08/19/2024 11:27 AM EDT) Rapid COVID Ag Negative [facility] Swab 08/19/2024 11:2 7 AM EDT us Jordy Downs MD POINT OF CARE TEST ENTER/EDIT OR DERABLES Final Result Performing Organization Address [facility] de Phone Number [facility] [address] [place] [address] [phone] * XR Hand 3+ Views Left (08/01/2024 10:45 AM EDT) Anatomical Region Laterality Modality Upper Extremities, Hand Left Radiogra phic Imaging 08/01/2024 10:4 5 AM EDT Narrative 08/02/2024 7:11 AM EDT ? [facility] ?[address] ?[place] [address] ?XRay Report ? Signed ? Patient: Puri Hoffmann,Blasina ?MR#: M ?? [id number] ? : 1945 ?Acct:[id number] ? Age/Sex: 79 / F ?ADM Date: /18/25 ? Loc: HO.XRAY ? Attending Dr: Radha Renee MD ? Ordering Physician: Radha Renee MD ?? Date of Service: 08/01/24 ?? Procedure(s): XR hand LT min 3V ?? Accession Number(s): [id number] ? cc: Radha Renee MD; Edwige Headley [...] Osteoarthritis as described. ? Electronically signed by: ??Calrke Fierro MD ??08/02/2024 07:04 AM EDT ? Dictated By: ?Clarke Fierro MD ? Signed By: ?<Electronically signed by Clarke Fierro MD in OV> ?08/02/24 0704 ? DD/ 1045 ? TD/TT: 08/01/24 1045 ? Hose Turner: ? Procedure Note Donsudheer, Image - 08/02/2024 [place] [address] XRay Report Signed Patient: Arthur Holguin#: M [id number] : 1945cct:[id number] Age/Sex: 79 / FADM Date: 08/01/24 Loc: [facility] Attending Dr: Radha Renee MD Ordering Physician: Radha Renee MD Date of Service: 08/01/24 Procedure(s): XR hand LT min 3V Accession Number(s): [id number] cc: Radha Renee MD; Edwige Headley MD [...] Clarke Fierro MD 08/02/2024 07:04 AM EDT RP Dictated By: Clarke Fierro MD Signed By: <Electronically signed by Clarke Fierro MD in OV> 08/02/24 0704 DD/ 1045 TD/TT: 08/01/24 1045 Hose Turner: us Radha Renee MD IMG XR PROCEDURES Final Res ult * Albumin, Random Urine W/Creatinine (07/18/2024 9:57 AM EST) Creatinine, Urine 47.58 mg/dL [facility] Microalbumin Urine 13.0 mg/L [facility] Microalbum Creatinine Ratio Ur 27.3 <30 ug/mg cr [facility] Comment:Albumin/Creatinine R atio Reference Ranges: Normal: < 30 ug/mg creatinine Microalbuminuria: 30 - 300 ug/mg creatinineClinical Albuminuria: > 300 ug/mg creatinine Urine (Urine, Random) 07/18/2024 9:57 AM EST 07/18/2024 2:15 PM EST us Radha Renee MD LAB URINE ORDERABLES Final Result Performing Organization Address City/State/[facility] Co de Phone Number [facility] [address] [place] [phone] * T-SPOT??.TB (07/07/2024 9:23 AM EST) T Spot TB Negative Negative [facility] Comment:A negative test resu lt [...] as aquantitative test. TS PANEL A 0 [facility] TS PANEL B 0 [facility] Negative Control Passed [facility] Positive Control Passed [facility] Comment:For additional infor nika, please refer tohttp://education.Fitsistant/faq/AIT148(This link is being provided for informational/educational purposes only.)THIS TEST WAS PERFORMED AT:[employer] [id number] [place] [address]TQXGYNHVIRGINIA DAN MD,PHD 07/07/2024 9:23 AM EST 07/07/2024 1:55 PM EST us Edwige Headley MD LAB BLOOD ORDERABLES Final Re sult Performing Organization Address City/[facility]/ZIP Co de Phone Number [facility] [address] [place] [phone] * Hepatitis C Antibody with Reflex to HCV, RNA, Quantitative, Real-Time PCR (07/07/2024 9:23 AM EST) Hepatitis C Antibody Nonreactive Nonreactive [facility] Comment:Antibodies to HCV no t detected; does not exclude early acuteHCV infection. Blood Venous blood specimen / Unknown 07/07/2024 9:23 AM EST 07/07/2024 1:55 PM EST us Radha Renee MD LAB BLOOD ORDERABLES Final Result Performing Organization Address [facility]/ZIP Co de Phone Number [facility] [address] [place] [phone] * POCT SENAIT-14 Urine Drug Screen (06/20/2024 2:05 PM EST) Urine Urine specimen obtained by clean catch procedure / Unknown 06/20/2024 2:05 PM EST Narrative Maria Guadalupe Rodríguez RN - 06/20/2024 2:05 PM EST negative for THC, MOP, OXY, ANTON, MET, AMP, BZO, BAR, MTD, BUPG, TCA, MDMA, PCP, PPX. Lot# [id number] Exp: 04-22-25 Edwige Headley MD POINT OF CARE TEST ENTER/EDIT ORDERABLES Final Result * POCT glucose manually resulted (06/19/2024 2:34 PM EST) Glucose Blood, POC 113 60 - 200 mg/dL QC Media Lot # Comment:[id number] Lot# Expiration Date Comment:08/22/2024 Blood Capillary blood specimen / Unknown 06/19/2024 2:34 PM EST Radha Renee MD POINT OF CARE TEST ENTER/ED IT ORDERABLES Final Result * (ABNORMAL) POCT HGB A1C (05/30/2024 1:42 PM EST) Hemoglobin A1C 6.9(A) 4.0 - 6.0 % QC Media Lot # [id number] Lot# Expiration Date [id number] Blood 05/30/2024 1:42 PM EST Radha Renee MD POINT OF CARE TEST ENTER/ED IT ORDERABLES Final Result * Lipid Panel, Standard (08/30/2023 10:36 AM EDT) Triglycerides 39 <150 mg/dL [facility] Comment:Desirable Triglyceri de: less than 150 mg/dLBorderline High Triglyceride 150-199 mg/dLHigh Triglyceride: 200-499 mg/dLVery High Triglyceride: greater than or equal to 5OO mg/dL Cholesterol 116 <200 mg/dL [facility] Comment:Desirable Cholestero l: less than 200 mg/dLBorderline High Cholesterol: 200-239 mg/dLHigh Cholesterol: greater than 239 mg/dL LDL Cholesterol Calculated 35 <100 mg/dL [facility] Comment:Desirable LDL: less than 100 mg/dLNear Optimal/Above Optimal LDL: 110- 129 mg/dLBorderline High LDL: 130-159 mg/dLHigh LDL: 160-189 mg/dLVery High LDL: greater than or equal to 190 mg/dL HDL Cholesterol 74 >40 mg/dL [facility] Comment:Desirable HDL: great er than 40 mg/dL Note: This HDL assay may give artificially low results in patients with liver disease. 08/30/2023 10:3 6 AM EDT 08/30/2023 10:41 AM EDT us Generic External Data Provider LAB BLOOD ORDERAB LES Final Result Performing Organization Address City/State/[facility] Co de Phone Number [facility] [address] [place] [phone] from Last 3 Months or Most Recently Relevant to Health Maintenance Insurance [address] [id number] Care Teams Television Repair Teacher Relationship Specialty Start Date End Date Edwige Headley MD [address] [place] [address] PCP - General Family Medicine 08/21/22
--- OUTSIDE RECORDS SUMMARY | 2024-09-06 17:23 | XMS_ITS | Encounter Summary ---
Author Organization [employer] Address [address] [facility] 7t [place] [address] Care Team Providers Care Dba Name Role Phone Edwige Headley MD Primary Care Provider Encounter Details Date Type Department Care Team ([facility] Contact Info) Description 11/03/2022 Abstract [place] [employer] [address] [place] [address] Edwige Headley MD [address] [place] [address] Social History Tobacco Use Types Packs/Day Years [...] Upcoming Encounters Date Type Department Care Team ([facility] Contact Info) Description 09/14/2024 10:30 AM EDT Clinical Support [facility] MED & PEDS [address] [place] [address] Maria Guadalupe Rodríguez RN 505 [place] [address] documented as of this encounter Goals Goal [...] documented as of this encounter Care Teams Dba Relationship Specialty Start Date End Date Edwige Headley MD [address] [place] [address] PCP - General Family Medicine 08/21/22 documented as of this encounter
--- OUTSIDE RECORDS SUMMARY | 2024-09-06 17:24 | XMS_ITS | Encounter Summary ---
Author Organization [employer] Address [address] [place] [address] Care Team Providers Care Veneer Stock Layer Name Role Phone Edwige Headley MD Primary Care Provider [phone] Reason for Visit * Reason Onset Date Comments Appointment Request 09/05/2024 Encounter Details Date Type Department Care Team ([facility] st Contact Info) Description 09/05/2024 Telephone [facility] MEDICINE [address] [place] [address] Edwige Headley MD [address] [place] [address] Appointment Request Social History Tobacco Use Types [...] * Telephone Encounter - Michelle Meeks - 09/05/2024 11:50 AM EDT Tc from pt requesting schedule appointment with pcp (only). Pt states feels more comfortable. documented in this encounter Plan of Treatment Upcoming Encounters Date Type Department Care Team (Late st Contact Info) Description 09/14/2024 10:30 AM EDT Clinical Support [facility] MED & PEDS [address] [place] [address] Maria Guadalupe Rodríguez, RN 505 [place] [address] documented as of this encounter Goals Goal [...] documented as of this encounter Care Teams Veneer Stock Layer Relationship Specialty Start Date End Date Edwige Headley MD [address] [place] [address] PCP - General Family Medicine 08/21/22 documented as of this encounter
--- OUTSIDE RECORDS SUMMARY | 2024-09-06 17:24 | XMS_ITS | Encounter Summary ---
Author Organization [employer] Address [address] 7[address] [place] [address] Care Team Providers Care Wellness Trainer Name Role Phone Edwige Headley MD Primary Care Provider Reason for Visit * Reason Onset Date Comments Lab Orders 07/06/2024 Encounter Details Date Type Department Care Team ([facility] st Contact Info) Description 07/06/2024 Telephone [facility] MEDICINE [address] [place] [address] Edwige Headley MD [address] [place] [address] Lab Orders Social History Tobacco Use Types [...] TC x 3 placed to pt via [employer] science interpreter (Ace ID#[id number]) to inform a tuberculosis lab order was placed by the provider for her to have done at her convenience. Pt verbalized understanding and deniesquestions or concerns at this time. * Telephone Encounter - Mau Overton - 07/06/2024 4:20 PM EST Tc from pt returning call. Pt needs an Psychiatry Adult Physician. * Telephone Encounter - Zoë Dorantes RN - 07/06/2024 3:33 PM EST TC placed to pt via [employer] science interpreter (ID#[id number]) to inform a tuberculosis lab order was [...] 09/14/2024 10:30 AM EDT Clinical Support [facility] MED & PEDS 505 [place], [place] [phone] Maria Guadalupe Rodríguez, RN [address] [place], [place] documented as of this encounter Goals [...] AM EST) T Spot TB Negative Negative [facility] Comment:A negative test resu lt [...] as aquantitative test. TS PANEL A 0 [facility] TS PANEL B 0 [facility] Negative Control Passed [facility] Positive Control Passed [facility] Comment:For additional infor nika, please refer tohttp://education.questdiagnostics.com/faq/MSG668(This link is being provided for informational/educational purposes only.)THIS TEST WAS PERFORMED AT:[facility] [place] [address]SCQJEKD W. MASON,MD,PHD 07/07/2024 9:23 AM EST 07/07/2024 1:55 PM EST us Edwige Headley MD LAB BLOOD ORDERABLES Final Re sult [facility] [address] [place] [phone] documented in this encounter Visit Diagnoses Diagnosis Encounter for screening for respiratory tuberculosis documented in this encounter Additional Health Concerns Assessment Noted Time PHQ-9 Depression Total Score: 10 06/2 024 12:52 PM EDT documented as of this encounter Care Teams Wellness Trainer Relationship Specialty Start Date End Date Edwige Headley MD [address] [place] [address] PCP - General Family Medicine 08/21/22 documented as of this encounter
--- OUTSIDE RECORDS SUMMARY | 2024-09-06 17:24 | XMS_ITS | Encounter Summary ---
Author Organization [employer] Address [address] [place] [address] Care Team Providers Care Senior Structural Engineer Name Role Phone Edwige Headley MD Primary Care Provider [phone] Reason for Visit * Reason Comments Med Refill Encounter Details Date Type Department Care Team ([facility] st Contact Info) Description 09/02/2024 Refill [facility] MED & PEDS [address] [place], [place] [phone] Edwige Headley MD 505 [place] [address] Social History Tobacco Use Types Packs/Day Years [...] 10:30 AM EDT Clinical Support [facility] MED & PEDS [address] [place] [address] Maria Guadalupe Rodríguez, RN 505 [place] [address] documented as of this encounter Goals Goal [...] documented as of this encounter Care Teams Senior Structural Engineer Relationship Specialty Start Date End Date Edwige Headley MD 230 [place] [address] PCP - General Family Medicine 08/21/22 documented as of this encounter
--- OUTSIDE RECORDS SUMMARY | 2024-09-06 17:24 | XMS_ITS | Encounter Summary ---
Author Organization [employer] Address [address] 7[address] [place] [address] Care Team Providers Care Shop Laborer Name Role Phone Edwige Headley MD Primary Care Provider [phone] Reason for Visit * Reason Onset Date Comments Med Refill 09/05/2024 Encounter Details Date Type Department Care Team (Late st Contact Info) Description 09/05/2024 Refill [facility] MEDICINE [address] [place] [address] Edwige Headley MD [address] [place] [address] Headache, common migraine, intractable Social History Tobacco [...] encounter Miscellaneous Notes * Telephone Encounter - Donna Kilgore LPN - 09/05/2024 11:56 AM EDT PCP off. Last seen 08/19/24. * Telephone Encounter - Michelle Meeks - 09/05/2024 11:53 AM EDT TC from pt requesting medication refill. Medications needing refill : mtdzvgyjbs-fvsltqzngdhgy-wuhmcppb 50-325-40 MG tablet To be sent to: [facility] documented in this encounter Plan of Treatment Upcoming Encounters Date Type Department Care Team (Late st Contact Info) Description 09/14/2024 10:30 AM EDT Clinical Support [facility] MED & PEDS [address] [place] [address] Maria Guadalupe Rodríguez, AC 505 [place] [address] documented as of this encounter Goals Goal Patient Goal Type Associated Problems Recent Progress Patient-Stated? Author Use the inhalers as prescribed by provider; Flovent HFA scheduled and albuterol as needed General No Marcel Garcia, PharmD Take your medication every day Lifestyle No Marcel Garcia PharmD documented as of this encounter Visit Diagnoses Diagnosis Headache, common migraine, intractable Migraine without aura, with intractable migraine, so stated, without mention of status migrainosus documented in this encounter Additional Health Concerns Assessment Noted Time PHQ-9 Depression Total Score: 10 10/28/ 024 12:52 PM EDT documented as of this encounter Care Teams Shop Laborer Relationship Specialty Start Date End Date Edwige Headley MD 230 [place] [address] PCP - General Family Medicine 08/21/22 documented as of this encounter
--- OUTSIDE RECORDS SUMMARY | 2024-09-06 17:24 | XMS_ITS | Encounter Summary ---
Author Organization [employer] Address [address] 7t [place] [address] Care Team Providers Care Boxing Promoter Name Role Phone Edwige Headley MD Primary Care Provider [phone] Reason for Visit * Reason Onset Date Comments Med Refill 09/05/2024 Encounter Details Date Type Department Care Team ([facility] st Contact Info) Description 09/05/2024 Refill [facility] MEDICINE [address] [place] [address] dEwige Headley MD [address] [place] [address] Fibromyalgia Social History Tobacco Use Types Packs/Day [...] Telephone Encounter - Michelle Meeks - 09/05/2024 11:44 AM EDT TC from pt requesting medication refill. Medications needing refill : traMADol (Ultram) 50 MG tablet To be sent to: [facility] documented in this encounter Plan of Treatment Upcoming Encounters Date Type Department Care Team (Late st Contact Info) Description 09/14/2024 10:30 AM EDT Clinical Support [facility] CH[facility] MED & PEDS 505 [place] [address] Maria Guadalupe Rodríguez, AC 505 [place] [address] documented as of this encounter Goals Goal [...] documented as of this encounter Care Teams Boxing Promoter Relationship Specialty Start Date End Date Edwige Headley MD [address] [place] [address] PCP - General Family Medicine 08/21/22 documented as of this encounter
--- OUTSIDE RECORDS SUMMARY | 2024-09-06 17:24 | XMS_ITS | Encounter Summary ---
Author Organization [employer] Address [address] 7t [place] [address] Care Team Providers Care Rolled Glass Crosscutter Name Role Phone Edwige Headley MD Primary Care Provider Reason for Visit * Reason Comments Med Refill Encounter Details Date Type Department Care Team ([facility] st Contact Info) Description 09/03/2024 Refill [facility] CH[facility] MED & PEDS [address] [place], [place] [phone] Edwige Headley MD 505 [place] [address] Social History Tobacco Use Types Packs/Day Years [...] Description 09/14/2024 10:30 AM EDT Clinical Support [facility] MED & PEDS 505 [place] [address] Maria Guadalupe Rodríguez, RN [address] [place] [address] documented as of this encounter Goals Goal [...] documented as of this encounter Care Teams Rolled Glass Crosscutter Relationship Specialty Start Date End Date Edwige Headley MD [address] [place] [address] PCP - General Family Medicine 08/21/22 documented as of this encounter
--- OUTSIDE RECORDS SUMMARY | 2024-09-06 17:24 | XMS_ITS | Encounter Summary ---
Author Organization [employer] Address [address] [place] [address] Care Team Providers Care Enamel Sprayer Name Role Phone Edwige Headley MD Primary Care Provider [phone] Reason for Visit * Reason Onset Date Comments PT-1 03/28/2024 Encounter Details Date Type Department Care Team ([facility] st Contact Info) Description 03/28/2024 Telephone [facility] MEDICINE [address] [place] [address] Edwige Headley MD [address] [place] [address] PT-1 Social History Tobacco Use Types Packs/Day [...] Y/N: Yes Provider name or facility name: [facility] Address: [address] [place] [address] Escort needed: Y/N: Yes Do you have a wheelchair: Y/N: No If yes- Manual or electric: (Uses Walker) Visits: Once a month documented in this encounter Plan of Treatment Upcoming Encounters Date Type Department Care Team (Late st Contact Info) Description 09/14/2024 10:30 AM EDT Clinical Support [facility] MED & PEDS 505 [place] [address] Maria Guadalupe Rodríguez RN 505 [place] [address] documented as of this encounter Goals Goal [...] documented as of this encounter Care Teams Enamel Sprayer Relationship Specialty Start Date End Date Edwige Headley MD [address] [place] [address] PCP - General Family Medicine 08/21/22 documented as of this encounter
== END 2024-09-06 15:14 | disposition home or self-care (01) ==
LOC: HO.HOS 14:30
PROVIDERS: PCP Family Medicine; Visit Provider Orthopaedic Surgery
DX: M65.332 Trigger finger, left middle finger (principal); M65.342 Trigger finger, left ring finger; M79.7 Fibromyalgia; E11.9 Type 2 diabetes mellitus without complications; G30.9 Alzheimer's disease, unspecified; F02.80 Dementia in other diseases classified elsewhere, unspecified severity, without behavioral disturbance, psychotic disturbance, mood disturbance, and anxiety; M65.322 Trigger finger, left index finger
CPT/HCPCS: 20550; 99214

== ENCOUNTER → 2024-09-06 14:29 | Outpatient (BNVA) | payer OTHER, SELFPAY | PROVIDERS: PCP Family Medicine; Visit Provider Orthopaedic Surgery | DX: M65.332 Trigger finger, left middle finger (principal); M65.342 Trigger finger, left ring finger; M65.322 Trigger finger, left index finger; M79.7 Fibromyalgia; G30.9 Alzheimer's disease, unspecified; F02.80 Dementia in other diseases classified elsewhere, unspecified severity, without behavioral disturbance, psychotic disturbance, mood disturbance, and anxiety; E11.9 Type 2 diabetes mellitus without complications | CPT/HCPCS: 20550; 99212; J1100; J2003 ==

== ENCOUNTER 2024-09-11 09:23 | Outpatient (AMB) | payer OTHER, MEDICAID, SELFPAY ==
--- NOTE | 2024-09-11 09:32 | MHC.OFFVIS ---
Vital Signs 09/11/24 09:33 Height 5 ft Weight 112 lb 6.972 oz BMI 22.0 BP 117/59 L Blood Pressure Location Lt brachial Position Sitting Pulse 77 Intake Visit Reasons: 8 wk Intake Note: Ed presents in the office as a 8 week follow up. CC: She states that she is feeling okay and not having any concerns at this time. Flat Folding Machine Operator Required: Yes Allergies pregabalin [From Lyrica] Allergy (Intermediate, Verified 09/11/24 09:33) Rash HPI Comments Details: 77 y.o F with PMH of who is here for refractory GERD . 11/16/22: Pt accompanied by her and daughter. Pt reports heartburn sensation for almost a decade now. Happens after food and associated with nausea. Has led to significant decrease in appetite with resultant weight loss of almost 4 lbs in just last one month. Pain often then localises to RUQ. Has been taking pepcid and carafate - feels that carafate helps more. Also takes Omeprazole 20 PRN. Pt also takes naproxen occasionally for that same abdominal pain. Does not smoke or drink. Has never had an EGD, last colo >10 years ago in [place]. Does not remember if she had polyps. s/p CCY. Of note, also reports spasm in around her umbilicus whenever she laughs or with any sudden movement and is concerned for ? hernia. 12/14/22: Here with her . Reports improvement in abdominal pain however heartburn continues to be an issue despite taking PPI as prescribed now i.e daily at least 30-40 mins before first meal of the day. Continues to use Naproxen frequently. 02/12/23: EGD/colo: ESOPHAGUS: Circular folds noted in the proximal esophagus during intubation - biopsies obtained to check for EOE. GE junction at 34 cms, small hiatal hernia 34 to 36 cms. No esophagitis or Hassan's. STOMACH: Diffuse gastritis DUODENUM: Normal - biopsied to check for celiac sprue Colonoscopy Findings: No polyps were detected Moderate diverticulosis seen in the left colon Small hemorrhoids on retroflexed exam. Path: A. Small bowel, biopsy: Small bowel mucosa with preserved villi and no specific change; no evidence of celiac disease. B. Gastric antrum, biopsy: Gastric antral mucosa with reactive changes and minimal chronic active gastritis; negative for intestinal metaplasia and dysplasia. C. Esophagus, proximal, biopsy: Squamous mucosa with no specific change; no evidence of eosinophilic esophagitis; no columnar mucosa present. 02/26/23: Here for post endoscopy follow up. Seen with repairer cylinder heads. Reports intermittent R sided discomfort still. Also notices heartburn with nausea some nights despite taking pepcid and then has to take omeprazole on top. Has stopped all nsaids including naproxen. Reviewed results of EGD and colo including non-H pylori gastritis. 03/24/24: Pt called to make this appt for R sided abd pain. Started almost a month ago. Starts out of nowhere lasts for 5 mins. Gets worse on certain positions such as laying down or going from standing to sitting. Had a fall on her R side 2 months ago. Was seen in urgent care for this last month and had rib XRAYS. Results pending. 04/18/24: Here for follow up. Reports improvement of pain. Now pain is mostly in the flank. US Abd results reviewed. Fatty liver noted but normal LFTs which argue against active HOPSON. 1. Status post cholecystectomy. 2. Pancreas not visualized obscured by bowel gas. 3. Increased echogenicity of the liver parenchyma, this can be seen in the setting of hepatic steatosis or liver parenchymal disease. 07/17/24: Accompanied by her daughter. Was set up for follow up for abd pain but mentions severe anal pain. Present x 2 years but prev had not mentioned it due to other issues ongoing. Present most of the time but gets worse when trying to defecate. Pressure like sensation present in the rectum. No rectal bleeding. Is constipated most of the times with significant straining. RUQ pain is resolved. 09/11/24: Here for follow up. Seen with repairer cylinder heads. Reports improvement in sx since incorporating laxatives and utilizing topical hydrocortisone. bowel habits are regular now. No straining or pain on defecation. Pt also requests refills on gerd meds. Has been taking carafate alf and advised to DC this and can take tums as needed for break through sx. [facility] Medical History Atherosclerotic cardiovascular disease PVD (peripheral vascular disease) Breast nodule Urinary incontinence Osteoporosis Dementia in Alzheimer's disease Chronic diastolic (congestive) heart failure Hypertension Vitamin D deficiency Carpal tunnel syndrome Cervical disc disorder CKD (chronic kidney disease), stage II TONY (generalized anxiety disorder) Vertigo CAD (coronary artery disease) GERD (gastroesophageal reflux disease) Migraine Diabetes mellitus Asthma Surgical History H/O hand surgery Hx of cardiac catheterization History of hernia repair History of left inguinal hernia repair History of right inguinal hernia repair History of cholecystectomy Hx of colonoscopy History of esophagogastroduodenoscopy (EGD) Family History Mother Heart problem Arthritis Social History Household Members: Spouse, Family and Children Housing: House Alcohol intake: never Patient Tobacco Use Status: Never used Tobacco Second Hand Smoke Exposure: No service: No Review of Systems Const All systems reviewed & are unremarkable except as noted in HPI and below Physical Exam Vital Signs: Last Vital Signs Pulse 77 09/11/24 09:33 BP 117/59 L 09/11/24 09:33 BMI result Body Mass Index 22.0 No apparent distress Nonicteric Abdomen soft, nondistended Alert and oriented x3, normal gait Assessment & Plan Assessment & Plan (1) Rectal pressure: Code(s): R19.8 - Other specified symptoms and signs involving the digestive system and abdomen Category: Medical (2) Hemorrhoids: Code(s): K64.9 - Unspecified hemorrhoids Category: Medical (3) Chronic heartburn: Code(s): R12 - Heartburn Category: Medical Plan 1. Lower GI/hemorrhoidal sx resolved with medical management. Gave one refill of topical hydrocort to be used as needed for recurrence of sx in future. 2. GERD Mostly has post prandial pyrosis. EGD 2022 and bx reviewed. Plan: - Switch famotidine to 20 mg BID for round the clock control - ok to take tums as needed for break through symptoms follow up 6 months Medications: New famotidine 20 mg PO BID 90 days 180 tabs 1RF Refilled hydrocortisone 2.5% (Anusol-HC) 1 appl [place] BEDTIME 14 days PRN 30 grams 0RF hemorrhoids Coding Level of Care Code Est Pt Level 4 (38484) Diagnoses Rectal pressure R19.8 Hemorrhoids K64.9 Chronic heartburn R12
[2024-09-11 09:33] VITALS: BP 117/59; PULSE 77; BMI 22.0
--- OUTSIDE RECORDS SUMMARY | 2024-09-11 10:25 | XMS_ITS | Encounter Summary ---
Author Organization [employer] Address [address] [place] [address] Care Team Providers Care Medical Records Secretary Name Role Phone Edwige Headley MD Primary Care Provider [phone] Encounter Details Date Type Department Care Team (Late st Contact Info) Description 08/03/2024 Orders Only [facility] MEDICINE [address] [place] [address] Radha Renee MD [address] [place] [address] Alzheimer's disease, unspecified (CODE) ([facility]) Social History Tobacco Use Types Packs/Day Years [...] Description 09/14/2024 10:30 AM EDT Clinical Support [facility] MED & PEDS [address] [place] [address] Maria Guadalupe Rodríguez, RN [address] [place] [address] documented as of this encounter Goals Goal Patient Goal Type Associated Problems Recent Progress Patient-Stated? Author Use the inhalers as prescribed by provider; Flovent HFA scheduled and albuterol as needed General No Marcel Garcia, PharmD Take your medication every day Lifestyle No Marcel Garcia PharmD documented as of this encounter Visit Diagnoses Diagnosis Alzheimer's disease, unspecified (CODE) ([facility]) documented in this encounter Additional Health Concerns Assessment Noted Time PHQ-9 Depression Total Score: 10 024 12:52 PM EDT documented as of this encounter Care Teams Medical Records Secretary Relationship Specialty Start Date End Date Edwige Headley MD [address] [place] [address] PCP - General Family Medicine 08/21/22 documented as of this encounter
--- OUTSIDE RECORDS SUMMARY | 2024-09-11 10:25 | XMS_ITS | Data Portability ---
Author Organization [email or web address] [facility] [place] [facility] Address [address] [place] [phone] Care Team Providers Care Product Marketing Intern Name Role Phone HIM [facility] OTHER [facility] OTHER Assessment Encounter Date Assessment Date Assessment LastModified by Organization Details LastModified Time 10/13/2023 10/13/2023 I have reviewed and agree with the assessment and plan as documented by the entry level chemist. I provided real-time medical direction for this [...] one 1 % topical cream 2023 024 [facility], [address] [place] [address], [id number], 14:48:38 Patient TargetsNo targets recorded. Patient InstructionsNo [...] Not Available Not Available No t Available SharedReviewsTouch Ultra Test strips TEST BLOOD SUGAR EVERY [...] Updated DateTime 4 99 % 99 % 29675.6 16 g 16 /min 98.1 [degF] 86 /min 138 mm[Hg] 90 mm[Hg] Not Available [employer] - production 4 18:14:31 Social History None recorded. Functional Status None recorded. Mental Status None recorded. Family History Nothing Reported. Medical History No medical history recorded. Gynecological HistoryNo gynecological history recorded. Obstetrics History GPAL:G 0 P 0 0 0 0 Past Encounters Encounter ID Performer Location Encounter Start Date Encounter Closed Date Diagnosis/Indication Diagnosis SNOMED-CT Code Diagnosis ICD10 Code Diagnosis Note [id number] Rita Haile MD [facility] - [facility] [address] [place] [address] 10/13/2023 18:14:24 10/14/2023 10:34:19 Contact dermatitis 08973849 L25.9 Health Concerns Section Related Observation LastModified by Organization Detai ls LastModified Time None Recorded Concern Status LastModified by Organization Details LastModified Time None Recorded Advance Directives Directive None Recorded Payers Encounter Date Sequence Insurance Name Policy Number Policy Sifuentes Covered Member ID Sifuentes Member ID Guarantor Name 10/13/2023 1 [facility] - DOS ON OR AFTER 2022 - DUAL ELIGIBLE - LONG TERM OPTIONS AND ONE CARE (MEDICARE REPLACEMENT/ADV ANTAGE - HMO) Ed Hoffmann [id number] Ed Hoffmann Notes Date Note Type Note [...] .................... .................... .................... .................... .................... .................... . [place] Note From Michael Nielson: Pt co rash/redness [...] . Disposition: Fulfilled Rita Haile MD [address] [facility], [place], [address], [email or web address] 10/13/2023 19:19:35 OBGyn Episode No OBEpisode recorded.
--- OUTSIDE RECORDS SUMMARY | 2024-09-11 10:25 | XMS_ITS | Clinical Summary ---
Author Organization [employer] Address [address] [facility] [address] [place] [address] Care Team Providers Care Workday Manager Name Role Phone Edwige Headley MD Primary Care Provider [phone] Allergies Active Allergy Reactions Criticality Noted Date [...] each 023 Active Lancets (OneTouch Delica Plus [id number]) misc 1 Units in the morning. Please [...] 5 MG tabletIndicatio ns:Alzheimer's disease, unspecified (CODE) ([facility]) Take 1 tablet (5 mg) by mouth [...] swallow test came back normal. Referred to irrigation foreman Assessment & Plan (07/20/2023 9:51 PM EST): [...] be prescribed steroids. Recommended patient to call Bank Officer to schedule an appointment to get further [...] Center 10/18/2023 3:30 PM Edwige Headley MD [facility] Assessment & Plan (03/19/2023 3:58 PM [...] Coping skills for Anxiety c. Contact this card writer hand for support as needed Encounters Date Type Department Care Team Description 09/05/2024 Refill [facility] MEDICINE [address] [place] [address] Edwige Headley MD Headache, common migraine, intractable 09/05/2024 Telephone [facility] MEDICINE [address] [place] [address] Edwige Headley MD Appointment Request 09/05/2024 Refill [facility] MEDICINE [address] [place] [address] Edwige Headley MD Fibromyalgia 09/03/2024 Refill [facility] MED & PEDS [address] [place] [address] Edwige Headley MD 09/02/2024 Refill [facility] MED [facility] PEDS [address] [place] [address] Edwige Headley MD 08/29/2024 Refill [facility] MED & PEDS [address] [place] [address] Radha Renee MD Left hand pain 08/29/2024 Refill [facility] MED & PEDS [address] [place] [address] Maryuri Miller FNP 08/25/2024 Telephone [facility] MEDICINE [address] [place] [address] Edwige Headley MD VCare Form 08/19/2024 11:20 AM EDT Office Visit [facility] WALK-IN CENTER [address] [place] [address] Jordy Downs MD Vomiting, unspecified vomiting type, unspecified whether nausea present 08/18/2024 8:45 AM EDT Telemedicine [facility] MED & PEDS [address] [place] [address] Robert High MD Trigger middle finger of left hand (Primary Dx) 08/18/2024 Travel 08/17/2024 Travel 08/17/2024 Telephone [facility] PEDS [address] [place] [address] Maria Guadalupe Rodríguez, RN finance business partner 08/17/[address] [address] Edwige Headley MD Appointment Request 08/17/2024 Telephone [facility] MEDICINE [address] [place] [address] Edwige Headley MD Nurse Triage 08/03/2024 Orders Only [facility] MEDICINE [address] [place] [phone] Radha Renee MD Alzheimer's disease, unspecified (CODE) ([facility]) 08/02/2024 Telephone [facility] MED & PEDS [address] [place] [address] Paris Gamino, RN Results; Referral 07/30/2024 Refill [facility] MEDICINE [address] [place] [address] Maryuri Miller, RACHEL Alzheimer's disease, unspecified (CODE) (CMS/HCC) 07/27/2024 9:30 AM EDT Office Visit [facility] MED [facility] PEDS [address] [place] [address] Radha Renee MD Left hand pain (Primary Dx); Meralgia paresthetica of left side; Headache, common migraine, intractable 07/27/2024 Refill [facility] MEDICINE [address] [place] [address] Edwige Headley MD Fibromyalgia 07/27/2024 Travel 07/24/2024 Refill [facility] CHC MED & PEDS [address] [place] [address] Edwige Headley MD 07/19/2024 Telephone [facility] MED & PEDS [address] [place] [address] Nina Clemons MD Appointment Request 07/17/2024 Telephone [facility] MEDICINE [address] [place] [address] Edwige Headley MD Nurse Triage 07/06/2024 Refill [facility] MEDICINE [address] [place] [address] Edwige Headley MD Alzheimer's disease, unspecified (CODE) ([facility]) 07/06/[address] [address] Edwige Headley MD Lab Orders 07/05/2024 Refill [facility] MED & PEDS [address] [place] [address] Edwige Headley MD 06/26/2024 Refill [facility] MED [facility] PEDS [address] [place] [address] Edwige Headley MD 06/20/2024 1:00 PM EST Clinical Support [facility] [address] [place] [address] Maria Guadalupe Rodríguez RN Fibromyalgia 06/20/2024 Travel 06/20/2024 Refill [facility] [address] [place] [address] Maria Guadalupe Rodríguez RN Fibromyalgia 06/19/2024 2:45 PM EST Office Visit [facility] [address] [place] [address] Radha Renee MD Fibromyalgia (Primary Dx); Type 2 diabetes mellitus with hyperglycemia, without long-term current use of insulin ([facility]); Chronic diastolic heart failure ([facility]); Chronic obstructive pulmonary disease, unspecified COPD type ([facility]) 06/19/2024 Travel 06/13/2024 Refill [facility] CHC MED & PEDS [address] [place] [address] Edwige Headley MD Fibromyalgia from Last 3 [...] Description 09/14/2024 10:30 AM EDT Clinical Support [facility] MED & PEDS [address] [place] [address] Maria Guadalupe Rodríguez, RN [address] [place] [address] Health Maintenance Due Date Last Done Comments [...] AM EDT) Influenza B Negative Negative, Indeterminate [facility] Swab 08/19/2024 11:2 7 AM EDT Jordy Downs MD POINT OF CARE TEST ENTER/EDIT OR DERABLES Final Result [facility] [address] [place] [phone] * Influenza A (ID NOW Rapid Molecular) (08/19/2024 11:27 AM EDT) Influenza A Negative Negative, Indeterminate [facility] Swab 08/19/2024 11:2 7 AM EDT us Jordy Downs MD POINT OF CARE TEST ENTER/EDIT OR DERABLES Final Result Performing Organization Address [facility] de Phone Number [facility] [address] [place] [address] [phone] * POCT Rapid COVID Ag (08/19/2024 11:27 AM EDT) Rapid COVID Ag Negative [facility] Swab 08/19/2024 11:2 7 AM EDT us Jordy Downs MD POINT OF CARE TEST ENTER/EDIT OR DERABLES Final Result Performing Organization Address [facility] de Phone Number [facility] [address] [place] [address] [phone] * XR Hand 3+ Views Left (08/01/2024 10:45 AM EDT) Anatomical Region Laterality Modality Upper Extremities, Hand Left Radiogra phic Imaging 08/01/2024 10:4 5 AM EDT Narrative 08/02/2024 7:11 AM EDT ? [facility] ?[address] ?[place] [address] ?XRay Report ? Signed ? Patient: Puri Hoffmann,Blasina ?MR#: [id number] ?? [id number] ? : 1945 ?Acct:[id number] ? Age/Sex: 79 / F ?ADM Date: /18/25 ? Loc: HO.XRAY ? Attending Dr: Radha Renee MD ? Ordering Physician: Radha Renee MD ?? Date of Service: 08/01/24 ?? Procedure(s): XR hand LT min 3V ?? Accession Number(s): [id number] ? cc: Radha Renee MD; Edwige Headley [...] ??Clarke Fierro MD ??08/02/2024 07:04 AM EDT ? Dictated By: ?Clarke Fierro MD ? Signed By: ?<Electronically signed by Clarke Fierro MD in OV> ?08/02/24 0704 ? DD/ 1045 ? TD/TT: 08/01/24 1045 ? Communications Systems Engineer: ? Procedure Note Donsudheer, Image - 08/02/2024 [place] [address] XRay Report Signed Patient: [place] Holguin#: M [id number] : 1945cct:[id number] Age/Sex: 79 / FADM Date: 08/01/24 Loc: [facility] Attending Dr: Radha Renee MD Ordering Physician: Radha Renee MD Date of Service: 08/01/24 Procedure(s): XR hand LT min 3V Accession Number(s): [id number] cc: Radha Renee MD; Edwige Headley MD [...] 08/02/24 0704 DD/ 1045 TD/TT: 08/01/24 1045 Communications Systems Engineer: us Radha Renee MD IMG XR PROCEDURES Final Res ult * Albumin, Random Urine W/Creatinine (07/18/2024 9:57 AM EST) Creatinine, Urine 47.58 mg/dL [facility] Microalbumin Urine 13.0 mg/L [facility] Microalbum Creatinine Ratio Ur 27.3 <30 ug/mg cr [facility] Comment:Albumin/Creatinine R atio Reference Ranges: Normal: < 30 ug/mg creatinine Microalbuminuria: 30 - 300 ug/mg creatinineClinical Albuminuria: > 300 ug/mg creatinine Urine (Urine, Random) 07/18/2024 9:57 AM EST 07/18/2024 2:15 PM EST us Radha Renee MD LAB URINE ORDERABLES Final Result Performing Organization Address City/State/[facility] Co de Phone Number [facility] [address] [place] [phone] * T-SPOT??.TB (07/07/2024 9:23 AM EST) T Spot TB Negative Negative [facility] Comment:A negative test resu lt [...] as aquantitative test. TS PANEL A 0 [facility] TS PANEL B 0 [facility] Negative Control Passed [facility] Positive Control Passed [facility] Comment:For additional infor nika, please refer tohttp://education.Etalia/faq/EQI826(This link is being provided for informational/educational purposes only.)THIS TEST WAS PERFORMED AT:[facility] [id number] [place] [address]BNCPEJXVIRGINIA DAN MD,PHD 07/07/2024 9:23 AM EST 07/07/2024 1:55 PM EST us Edwige Headley MD LAB BLOOD ORDERABLES Final Re sult Performing Organization Address City/[facility] [address]/ZIP Co de Phone Number [facility] [address] [place] [phone] * Hepatitis C Antibody with Reflex to HCV, RNA, Quantitative, Real-Time PCR (07/07/2024 9:23 AM EST) Hepatitis C Antibody Nonreactive Nonreactive [facility] Comment:Antibodies to HCV no t detected; does not exclude early acuteHCV infection. Blood Venous blood specimen / Unknown 07/07/2024 9:23 AM EST 07/07/2024 1:55 PM EST us Radha Renee MD LAB BLOOD ORDERABLES Final Result Performing Organization Address [facility] [address]/ZIP Co de Phone Number [facility] [address] [place] [phone] * POCT SENAIT-14 Urine Drug Screen (06/20/2024 2:05 PM EST) Urine Urine specimen obtained by clean catch procedure / Unknown 06/20/2024 2:05 PM EST Narrative Maria Guadalupe Rodríguez RN - 06/20/2024 2:05 PM EST negative for THC, MOP, OXY, ANTON, MET, AMP, BZO, BAR, MTD, BUPG, TCA, MDMA, PCP, PPX. Lot# [id number] Exp: 04-22-25 Edwige Headley MD POINT OF CARE TEST ENTER/EDIT ORDERABLES Final Result * POCT glucose manually resulted (06/19/2024 2:34 PM EST) Glucose Blood, POC 113 60 - 200 mg/dL QC Media Lot # Comment:[id number] Lot# Expiration Date Comment:08/22/2024 Blood Capillary blood specimen / Unknown 06/19/2024 2:34 PM EST Radha Renee MD POINT OF CARE TEST ENTER/ED IT ORDERABLES Final Result * (ABNORMAL) POCT HGB A1C (05/30/2024 1:42 PM EST) Hemoglobin A1C 6.9(A) 4.0 - 6.0 % QC Media Lot # [id number] Lot# Expiration Date [id number] Blood 05/30/2024 1:42 PM EST Radha Renee MD POINT OF CARE TEST ENTER/ED IT ORDERABLES Final Result * Lipid Panel, Standard (08/30/2023 10:36 AM EDT) Triglycerides 39 <150 mg/dL [facility] Comment:Desirable Triglyceri de: less than 150 mg/dLBorderline High Triglyceride 150-199 mg/dLHigh Triglyceride: 200-499 mg/dLVery High Triglyceride: greater than or equal to 5OO mg/dL Cholesterol 116 <200 mg/dL [facility] Comment:Desirable Cholestero l: less than 200 mg/dLBorderline High Cholesterol: 200-239 mg/dLHigh Cholesterol: greater than 239 mg/dL LDL Cholesterol Calculated 35 <100 mg/dL [facility] Comment:Desirable LDL: less than 100 mg/dLNear Optimal/Above Optimal LDL: 110- 129 mg/dLBorderline High LDL: 130-159 mg/dLHigh LDL: 160-189 mg/dLVery High LDL: greater than or equal to 190 mg/dL HDL Cholesterol 74 >40 mg/dL [facility] Comment:Desirable HDL: great er than 40 mg/dL Note: This HDL assay may give artificially low results in patients with liver disease. 08/30/2023 10:3 6 AM EDT 08/30/2023 10:41 AM EDT us Generic External Data Provider LAB BLOOD ORDERAB LES Final Result Performing Organization Address City/State/[facility] Co de Phone Number [facility] [address] [place] [phone] from Last 3 Months or Most Recently Relevant to Health Maintenance Insurance [place] [address] [address]-[facility]ERLY [facility] Care Teams Workday Manager Relationship Specialty Start Date End Date Edwige Headley MD [address] [place] [address] PCP - General Family Medicine 08/21/22
--- OUTSIDE RECORDS SUMMARY | 2024-09-11 10:25 | XMS_ITS | Encounter Summary ---
Author Organization [employer] Address [address] [facility] [address] [place] [address] Care Team Providers Care Asbestos Removal Worker Name Role Phone Edwige Headley MD Primary Care Provider [phone] Reason for Visit * Reason Comments Med Refill Encounter Details Date Type Department Care Team ([facility] st Contact Info) Description 09/02/2024 Refill [facility] CHC MED & PEDS [address] [place], [place] [phone] Edwige Headley MD [address] [place] [address] Social History Tobacco Use Types Packs/Day Years [...] [facility] MED & PEDS [address] [place] [address] Maria Guadalupe Rodríguez, RN [address] [place] [address] documented as of this encounter Goals Goal [...] documented as of this encounter Care Teams Asbestos Removal Worker Relationship Specialty Start Date End Date Edwige Headley MD [address] [place] [address] PCP - General Family Medicine 08/21/22 documented as of this encounter
--- OUTSIDE RECORDS SUMMARY | 2024-09-11 10:25 | XMS_ITS | Encounter Summary ---
Author Organization [employer] Address [address] [facility] 7t [place] [address] Care Team Providers Care Machine Pan Greaser Name Role Phone Edwige Headley MD Primary Care Provider [phone] Encounter Details Date Type Department Care Team ([facility] Contact Info) Description 11/03/2022 Abstract [facility] [employer] [address] [place] [address] Edwige Headley MD [address] [place] [address] Social History Tobacco Use Types Packs/Day Years [...] Upcoming Encounters Date Type Department Care Team ([facility] Contact Info) Description 09/14/2024 10:30 AM EDT Clinical Support [facility] CHC MED & PEDS [address] [place] [address] Maria Guadalupe Rodríguez RN [address] [place] [address] documented as of this encounter Goals Goal [...] as of this encounter Care Teams Machine Pan Greaser Relationship Specialty Start Date End Date Edwige Headley MD [address] [place] [address] PCP - General Family Medicine 08/21/22 documented as of this encounter
--- OUTSIDE RECORDS SUMMARY | 2024-09-11 10:25 | XMS_ITS | Encounter Summary ---
Author Organization [employer] Address [address] [facility] [address] [place] [address] Care Team Providers Care Tool And Die Repairer Name Role Phone Edwige Headley MD Primary Care Provider [phone] Reason for Visit * Reason Onset Date Comments Appointment Request 09/05/2024 Encounter Details Date Type Department Care Team ([facility] st Contact Info) Description 09/05/2024 Telephone [facility] MEDICINE [address] [place] [address] Edwige Headley MD [address] [place] [address] Appointment Request Social History Tobacco Use Types [...] Description 09/14/2024 10:30 AM EDT Clinical Support [facility] MED & PEDS [address] [place] [address] Maria Guadalupe Rodríguez, RN [address] [place] [address] documented as of this encounter Goals Goal Patient Goal Type Associated Problems Recent Progress Patient-Stated? Author Use the inhalers as prescribed by provider; Flovent HFA scheduled and albuterol as needed General No Marcel Garcia, PharmD Take your medication every day Lifestyle No Marcel Gacria, PharmD documented as of this encounter Visit Diagnoses Not on filedocumented in this encounter Additional Health Concerns Assessment Noted Time PHQ-9 Depression Total Score: 10 024 12:52 PM EDT documented as of this encounter Care Teams Tool And Die Repairer Relationship Specialty Start Date End Date Edwige Headley MD [address] [place] [address] PCP - General Family Medicine 08/21/22 documented as of this encounter
--- OUTSIDE RECORDS SUMMARY | 2024-09-11 10:25 | XMS_ITS | Encounter Summary ---
Author Organization [employer] Address [address] [facility] [address] [place] [address] Care Team Providers Care Bullet Assembly Press Operator Name Role Phone Edwige Headley MD Primary Care Provider [phone] Reason for Visit * Reason Onset Date Comments Appointment Request 04/06/2024 Encounter Details Date Type Department Care Team ([facility] st Contact Info) Description 04/06/2024 Telephone [facility] MEDICINE [address] [place] [address] Edwige Headley MD [address] [place] [address] Appointment Request Social History Tobacco Use Types [...] somewhere else. Contac pt to r/s at [phone] documented in this encounter Plan of Treatment Upcoming Encounters Date Type Department Care Team (Late st Contact Info) Description 09/14/2024 10:30 AM EDT Clinical Support [facility] MED & PEDS [address] [place] [address] Maria Guadalupe Rodríguez, AC [address] [place] [address] documented as of this encounter Goals Goal [...] documented as of this encounter Care Teams Bullet Assembly Press Operator Relationship Specialty Start Date End Date Edwige Headley MD [address] [place] [address] PCP - General Family Medicine 08/21/22 documented as of this encounter
--- OUTSIDE RECORDS SUMMARY | 2024-09-11 10:25 | XMS_ITS | Encounter Summary ---
Author Organization [employer] Address [address] [facility] [address] [place] [address] Care Team Providers Care Field Map Editor Name Role Phone Edwige Headley MD Primary Care Provider [phone] Encounter Details Date Type Department Care Team ([facility] st Contact Info) Description 10/22/2022 Telephone C [facility] MED [facility] PEDS [address] [place], [place] [phone] Edwige Headley MD [address] [place] [address] Social History Tobacco Use Types Packs/Day Years [...] a call in regards to message above. (Taiwanese speaker) * Telephone Encounter - Inez Martinez - 10/22/2022 3:31 PM EDT TC from pt requesting help to schedule her gastro appt . Please call to clarify . documented in this encounter Plan of Treatment Upcoming Encounters Date Type Department Care Team (Late st Contact Info) Description 09/14/2024 10:30 AM EDT Clinical Support [facility] MED & PEDS [address] [place] [address] Maria Guadalupe Rodríguez, RN [address] [place] [address] documented as of this encounter Goals Goal [...] as of this encounter Care Teams Field Map Editor Relationship Specialty Start Date End Date Edwige Headley MD [address] [place] [address] PCP - General Family Medicine 08/21/22 documented as of this encounter
--- OUTSIDE RECORDS SUMMARY | 2024-09-11 10:25 | XMS_ITS | Encounter Summary ---
Author Organization [employer] Address [address] [facility] [address] [place] [address] Care Team Providers Care Visual Merchandising Director Name Role Phone Edwige Headley MD Primary Care Provider [phone] Reason for Visit * Reason Onset Date Comments Hospital Follow-up 05/25/2024 Encounter Details Date Type Department Care Team ([facility] st Contact Info) Description 05/25/2024 Telephone [facility] MEDICINE [address] [place] [address] Edwige Headley MD [address] [place] [phone] Hospital Follow-up Social History Tobacco Use Types [...] from pt requesting a HDF appt. Hospital: [facility] Date of admission: 05/16/2024 Discharge date: 2024 Diagnosed: Discuss with pt. *Send message to [place] Clinical Care Coordinators documented in this encounter Plan of Treatment Upcoming Encounters Date Type Department Care Team (Late st Contact Info) Description 09/14/2024 10:30 AM EDT Clinical Support [facility] CHC MED & PEDS [address] [place] [address] Maria Guadalupe Rodríguez, AC [address] [place] [address] documented as of this encounter Goals Goal [...] documented as of this encounter Care Teams Visual Merchandising Director Relationship Specialty Start Date End Date Edwige Headley MD [address] [place] [address] PCP - General Family Medicine 08/21/22 documented as of this encounter
--- OUTSIDE RECORDS SUMMARY | 2024-09-11 10:25 | XMS_ITS | Encounter Summary ---
Author Organization [employer] Address [address] [facility] [address] [place] [address] Care Team Providers Care Escalation Engineer Name Role Phone Edwige Headley MD Primary Care Provider Reason for Visit * Reason Onset Date Comments Appointment Request 04/28/2024 Encounter Details Date Type Department Care Team ([facility] st Contact Info) Description 04/28/2024 Telephone [facility] MEDICINE [address] [place] [address] Edwige Headley MD [address] [place] [address] Appointment Request Social History Tobacco Use Types [...] - 04/28/2024 2:22 PM EST 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 Pt would like to reschedule. documented in this encounter Plan of Treatment Upcoming Encounters Date Type Department Care Team (Late st Contact Info) Description 09/14/2024 10:30 AM EDT Clinical Support [facility] MED & PEDS [address] [place] [address] Maria Guadalupe Rodríguez, AC [address] [place], [place] documented as of this encounter Goals [...] documented as of this encounter Care Teams Escalation Engineer Relationship Specialty Start Date End Date Edwige Headley MD [address] [place] [address] PCP - General Family Medicine 08/21/22 documented as of this encounter
--- OUTSIDE RECORDS SUMMARY | 2024-09-11 10:25 | XMS_ITS | Encounter Summary ---
Author Organization [facility] Address [address] [place] [address] Care Team Providers Care Fish Receiver Name Role Phone Edwige Headley MD Primary Care Provider [phone] Reason for Visit * Reason Comments Med Refill Encounter Details Date Type Department Care Team ([facility] Contact Info) Description 12/04/2022 Refill [facility] CHC MED & PEDS [address] [place] [address] Edwige Headley MD [address] [place] [address] Social History Tobacco Use Types Packs/Day Years [...] Upcoming Encounters Date Type Department Care Team ([facility] Contact Info) Description 09/14/2024 10:30 AM EDT Clinical Support [facility] CHC MED & PEDS [address] [place] [address] Maria Guadalupe Rodríguez, AC [address] [place] [address] documented as of this encounter Goals Goal [...] documented as of this encounter Care Teams Fish Receiver Relationship Specialty Start Date End Date Edwige Headley MD [address] [place] [address] PCP - General Family Medicine 08/21/22 documented as of this encounter
--- OUTSIDE RECORDS SUMMARY | 2024-09-11 10:25 | XMS_ITS | Encounter Summary ---
Author Organization [employer] Address [address] [facility] [address] [place] [address] Care Team Providers Care Obstetrics Gyn Physician Name Role Phone Edwige Headley MD Primary Care Provider [phone] Reason for Visit * Reason Comments Med Refill Encounter Details Date Type Department Care Team ([facility] st Contact Info) Description 08/13/2023 Refill [facility] MED & PEDS [address] [place], [place] [phone] Edwige Headley MD [address] [place] [address] Social History Tobacco Use Types Packs/Day Years [...] Description 09/14/2024 10:30 AM EDT Clinical Support [facility] MED & PEDS [address] [place] [address] Maria Guadalupe Rodríguez, RN [address] [place] [address] documented as of this encounter Goals Goal [...] documented as of this encounter Care Teams Obstetrics Gyn Physician Relationship Specialty Start Date End Date Edwige Headley MD [address] [place] [address] PCP - General Family Medicine 08/21/22 documented as of this encounter
--- OUTSIDE RECORDS SUMMARY | 2024-09-11 10:25 | XMS_ITS | Encounter Summary ---
Author Organization [employer] Address [address] [place] [address] Care Team Providers Care Intelligence Chief Name Role Phone Edwige Headley MD Primary Care Provider [phone] Reason for Visit * Reason Comments Med Refill Encounter Details Date Type Department Care Team ([facility] st Contact Info) Description 10/16/2023 Refill [facility] MED & PEDS [address] [place], [place] [id number] Edwige Headley MD [address] [place] [address] Social History Tobacco Use Types Packs/Day Years [...] [facility] MED & PEDS [address] [place] [address] Maria Guadalupe Rodríguez, RN 505 [place] [address] documented as of this encounter Goals Goal [...] documented as of this encounter Care Teams Intelligence Chief Relationship Specialty Start Date End Date Edwige Headley MD [address] [place] [address] PCP - General Family Medicine 08/21/22 documented as of this encounter
--- OUTSIDE RECORDS SUMMARY | 2024-09-11 10:25 | XMS_ITS | Encounter Summary ---
Author Organization [employer] Address [address] [facility] [address] [place] [address] Care Team Providers Care College Archivist Name Role Phone Edwige Headley MD Primary Care Provider [phone] Reason for Visit * Reason Onset Date Comments Appointment Request 08/17/2024 Encounter Details Date Type Department Care Team ([facility] st Contact Info) Description 08/17/[address] [facility] MEDICINE [address] [place] [address] Edwige Headley MD [address] [place] [address] Appointment Request Social History Tobacco Use Types [...] Description 09/14/2024 10:30 AM EDT Clinical Support [facility] MED & PEDS [address] [place] [address] Maria Guadalupe Rodríguez, RN 505 [place] [address] documented as of this encounter Goals Goal [...] documented as of this encounter Care Teams College Archivist Relationship Specialty Start Date End Date Edwige Headlye MD [address] [place] [address] PCP - General Family Medicine 08/21/22 documented as of this encounter
--- OUTSIDE RECORDS SUMMARY | 2024-09-11 10:26 | XMS_ITS | Encounter Summary ---
Author Organization [employer] Address [address] [facility] [facility] [address] [place] [address] Care Team Providers Care Hand Binder Cutter Name Role Phone Edwige Headley MD Primary Care Provider [phone] Reason for Visit * Reason Onset Date Comments PT-1 03/28/2024 Encounter Details Date Type Department Care Team ([facility] st Contact Info) Description 03/28/2024 Telephone [facility] MEDICINE [address] [place] [address] Edwige Headley MD 505 [place] [address] PT-1 Social History Tobacco Use Types Packs/Day [...] Y/N: Yes Provider name or facility name: [facility] Facility Address: [address] [place] [address] Escort needed: Y/N: Yes Do you have a wheelchair: Y/N: No If yes- Manual or electric: (Uses Walker) Visits: Once a month documented in this encounter Plan of Treatment Upcoming Encounters Date Type Department Care Team (Late st Contact Info) Description 09/14/2024 10:30 AM EDT Clinical Support [facility] MED & PEDS [address] [place] [address] Maria Guadalupe Rodríguez RN 505 [place] [address] documented as of this encounter Goals Goal [...] documented as of this encounter Care Teams Hand Binder Cutter Relationship Specialty Start Date End Date Edwige Headley MD [address] [place] [id number] PCP - General Family Medicine 08/21/22 documented as of this encounter
--- OUTSIDE RECORDS SUMMARY | 2024-09-11 10:26 | XMS_ITS | Encounter Summary ---
Author Organization [employer] Address [address] [facility] [address] [place] [address] Care Team Providers Care Optics Technical Officer Name Role Phone Edwige Headley MD Primary Care Provider [phone] Reason for Visit * Reason Onset Date Comments Lab Orders 07/06/2024 Encounter Details Date Type Department Care Team ([facility] st Contact Info) Description 07/06/2024 Telephone [facility] MEDICINE [address] [place] [address] Edwige Headley MD [address] [place] [address] Lab Orders Social History Tobacco Use Types [...] TC x 3 placed to pt via [employer] bait painter (Ace ID#[id number]) to inform a tuberculosis lab order was placed by the provider for her to have done at her convenience. Pt verbalized understanding and deniesquestions or concerns at this time. * Telephone Encounter - Mau Overton - 07/06/2024 4:20 PM EST Tc from pt returning call. Pt needs an Celebrity Chef Entrepreneur Media Personality. * Telephone Encounter - Zoë Dorantes RN - 07/06/2024 3:33 PM EST TC placed to pt via [employer] bait painter (ID#[id number]) to inform a tuberculosis lab order was [...] Description 09/14/2024 10:30 AM EDT Clinical Support [facility] MED & PEDS [address] [place], [place] [phone] Maria Guadalupe Rodríguez, RN [address] [place], [place] documented as of this encounter Goals [...] AM EST) T Spot TB Negative Negative [facility] Comment:A negative test resu lt [...] as aquantitative test. TS PANEL A 0 [facility] TS PANEL B 0 [facility] Negative Control Passed [facility] Positive Control Passed [facility] Comment:For additional infor nika, please refer tohttp://education.questdiagnostics.com/faq/SET088(This link is being provided for informational/educational purposes only.)THIS TEST WAS PERFORMED AT:[id number] [place] [address]AEVNKDZ W. MASON,MD,PHD 07/07/2024 9:23 AM EST 07/07/2024 1:55 PM EST us Edwige Headley MD LAB BLOOD ORDERABLES Final Re sult [facility] [address] [place] [phone] documented in this encounter Visit Diagnoses Diagnosis Encounter for screening for respiratory tuberculosis documented in this encounter Additional Health Concerns Assessment Noted Time PHQ-9 Depression Total Score: 10 06/2 024 12:52 PM EDT documented as of this encounter Care Teams Optics Technical Officer Relationship Specialty Start Date End Date Edwige Headley MD [address] [place] [address] PCP - General Family Medicine 08/21/22 documented as of this encounter
--- OUTSIDE RECORDS SUMMARY | 2024-09-11 10:26 | XMS_ITS | Encounter Summary ---
Author Organization [employer] Address [address] [facility] [address] [place] [address] Care Team Providers Care Instructor Physical Name Role Phone Edwige Headley MD Primary Care Provider [phone] Reason for Visit * Reason Onset Date Comments Med Refill 09/05/2024 Encounter Details Date Type Department Care Team ([facility] st Contact Info) Description 09/05/2024 Refill [facility] MEDICINE [address] [place] [address] Edwige Headley MD [address] [place] [address] Fibromyalgia Social History Tobacco Use Types Packs/Day [...] 50 MG tablet To be sent to: [facility] documented in this encounter Plan of Treatment Upcoming Encounters Date Type Department Care Team (Late st Contact Info) Description 09/14/2024 10:30 AM EDT Clinical Support [facility] MED & PEDS [address] [place] [address] Maria Guadalupe Rodríguez, AC [address] [place] [address] documented as of this encounter Goals Goal [...] documented as of this encounter Care Teams Instructor Physical Relationship Specialty Start Date End Date Edwige Headley MD [address] [place] [address] PCP - General Family Medicine 08/21/22 documented as of this encounter
== END 2024-09-11 13:18 | disposition home or self-care (01) ==
LOC: HO.HGI 09:24
PROVIDERS: PCP Family Medicine; Visit Provider Internal Medicine
DX: R19.8 Other specified symptoms and signs involving the digestive system and abdomen (principal); K64.9 Unspecified hemorrhoids; R12 Heartburn
CPT/HCPCS: 99214

== ENCOUNTER → 2024-09-11 09:23 | Outpatient (BNVA) | payer OTHER, SELFPAY | PROVIDERS: PCP Family Medicine; Visit Provider Internal Medicine | DX: K64.9 Unspecified hemorrhoids (principal); R19.8 Other specified symptoms and signs involving the digestive system and abdomen; R12 Heartburn | CPT/HCPCS: 99212 ==

== ENCOUNTER 2024-11-03 15:58 | Outpatient (AMB) | payer OTHER, SELFPAY ==
--- OUTSIDE RECORDS SUMMARY | 2024-11-03 16:00 | XMS_ITS | Clinical Summary ---
Author Organization [employer] Address [address] [facility] [address] [place] [address] Care Team Providers Care Vamp Throater Name Role Phone Edwige Headley MD Primary Care Provider [phone] Allergies Active Allergy Reactions Criticality Noted Date [...] each 023 Active Lancets (OneTouch Delica Plus [id number]) misc 1 Units in the morning. Please [...] NEEDED SHORTNESS OF BREATH OR FOR WHEEZING 024 Active Trelegy Ellipta 200-62.5-25 MCG/ACT aerosol powder [...] for 10 days. 30 tablet 025 Active famotidine (Pepcid) 40 MG [...] IN THE EVENING 270 tablet 1 Active montelukast (Singulair) 10 MG tablet TAKE 1 TABLET BY MOUTH AT BEDTIME 90 tablet 1 025 Active Multiple Vitamin (Multivitamin) tablet TAKE 1 TABLET BY MOUTH EVERY MORNING 90 tablet 1 Active rosuvastatin (Crestor) 20 MG tablet TAKE 1 TABLET BY MOUTH AT BEDTIME 90 tablet 1 Active memantine (Namenda) 5 MG tabletIndicatio ns:Alzheimer's [...] HOURS NEEDED WITH FOOD 900 mL 1 Active losartan (Cozaar) 25 MG tablet TAKE 1 TABLET BY MOUTH EVERY MORNING 90 tablet 1 Active Aspirin Low Dose 81 MG EC tablet TAKE 1 TABLET BY MOUTH EVERY MORNING 90 tablet 1 Active butalbital-acet aminophen-caffe ine 50-325-40 MG tabletIndicatio ns:Headache, common migraine, intractable TAKE 1 TABLET A DAY NEEDED. NOT TO USE THIS MEDICATION MORE THAN 3 TIMES A WEEK 8 tablet Active celecoxib (CeleBREX) 100 MG capsuleIndicati ons:Fibromyalgi a TAKE 1 CAPSULE BY MOUTH TWICE DAILY 60 capsule 1 Active senna (Senokot) 8.6 MG tablet Take 1 tablet by mouth Once per day. Active Polyethylene Glycol 3350 (PEG 3350) 17 GM/SCOOP powder TAKE 17 GM MIXED IN 8 OUNCES OF WATER ONCE DAILY Active Xiidra 5 % solution instill 1 drop in each eye twice daily 04/14/2 025 Active Restasis 0.05 % ophthalmic emulsion instill 1 drop in each eye twice daily 025 Active traMADol (Ultram) 50 MG tabletIndicatio ns:Fibromyalgia Take 1 tablet (50 mg) by mouth every 12 (twelve) hours if needed for severe pain. 42 tablet 025 Active traMADol (Ultram) 50 MG tabletIndicatio ns:Fibromyalgia Take 1 tablet (50 mg) by mouth every 12 (twelve) hours if needed for severe pain. 42 tablet 025 2024 Discontinued(R eorder (will not trigger notification to Pharmacy)) Active Problems Problem Noted Date Diagnosed Date Impaired mobility and activities of daily living 09/28/2024 Assessment & Plan (09/28/2024 10:11 AM EDT): Patient reports that her mobility has significantly decline in the last couple of months. Her room is in the second floor of the house she lives with her adult daughter and she has difficulties going up and down stairs. They are requesting to assess if insurance will cover stair lift. A stair lift will improve her quality of life, allow her to stay in her current living situation and improve her mobility. Medical necessity letter detailing her medical history and how a stair lift will benefit her was generated and should be a touch to the stair lift request. Asthma-COPD overlap syndrome 09/27/2024 Assessment & Plan (09/28/2024 10:09 AM EDT): Patient's COPD symptoms are worsening, with increasing limitation in breathing becoming more continuous. She experiences dyspnea on exertion, particularly when climbing stairs. Currently on Trelegy , which was prescribed by a senior care specialist. Oxygen saturation appears stable at rest, but there is a need to assess for desaturation with ambulation. Plan: - Continue Trelegy 262.5/25 as prescribed by senior care specialist - Assess oxygen saturation with ambulation - Consider low-dose chronic steroids (to be discussed with senior care specialist) - Follow up with senior care specialist on the of the current month Bilateral hand pain 09/27/2024 Chronic heartburn 09/27/2024 Degenerative disc disease, lumbar 09/27/2024 Other fatigue 09/27/2024 Long-term current use of opiate analgesic 2024 Chronic left ear pain 08/31/2023 Assessment & Plan (09/01/2023 2:20 AM EDT): Referral to ENT and Audiology for further evaluation of left ear. - Hx of left ear pain and hearing loss Hearing loss 08/31/2023 Dysphagia 07/20/2023 Assessment & Plan (09/01/2023 2:22 AM EDT): Barium swallow test came back normal. Referred to video tape editor Assessment & Plan (07/20/2023 9:51 PM EST): [...] use of insulin 08/21/2022 Assessment & Plan (09/28/2024 10:06 AM EDT): Controlled. Lab Results Component Value Date HGBA1C 6.2 (A) 09/27/2024 Target A1c < 8% given given age and dementia. Continue with the following medications: Metformin 500 mg Follow-up in 4 months and continue lifestyle interventions. Assessment & Plan (07/20/2023 9:53 PM EST): [...] be prescribed steroids. Recommended patient to call Vice President Sales to schedule an appointment to get further assistance. Alzheimer's dementia 08/21/2022 Assessment & Plan (03/16/2024 2:25 PM EDT): Patient reports she will want to switch neurologist elsewhere as she feels no being heard by current neurologist, will send referral Chronic diastolic heart failure 08/21/2022 Assessment & Plan (09/28/2024 10:07 AM EDT): Patient reports experienced significant shortness of breath and tiredness when she ambulates. Reports she was told by visiting nurse that she had orthostatic hypotension the there is no documentation available and when vitals were repeated in office this was not present. Vertigo 08/21/2022 Coronary artery disease of n [...] at home. Hypertension 08/21/2022 Assessment & Plan (09/28/2024 10:08 AM EDT): Controlled. Target BP <130/80 mmHg given history of diabetes. Given age target of more than 65 mmHg diastolic. Continue current medication regimen Reviewed med side effects Lab Results Component Value Date K 3.9 05/16/2024 Lab Results Component Value Date CREATININE 0.83 05/16/2024 Lab Results Component Value Date ALBUMIN 4.2 08/21/2022 Recommend lifestyle modification: Weight loss, DASH diet, High K, Low Na, Aerobic exercise, and reduce intake of alcohol Assessment & Plan (09/28/2022 4:03 PM EDT): [...] Coping skills for Anxiety c. Contact this report writer for support as needed Encounters Date Type Department Care Team Description 10/23/[address] [address] Edwige Headley MD Form status request 10/23/2024 Refill [facility] [address] [place] [address] Radha Renee MD 10/20/[address] [address] Edwige Headley MD Medical Necessity Form 10/17/2024 Refill [facility] [address] [place] [address] Maria Guadalupe Rodríguez, RN Fibromyalgia 10/17/[address] [address] Edwige Headley MD Med Refill 09/29/2024 Telephone [facility] [address] [place] [address] Edwige Headley MD 09/27/2024 2:00 PM EDT Office Visit [facility] [address] [place] [address] Edwige Headley MD Diabetes mellitus due to underlying condition with hyperglycemia, without long-term current use of insulin (CMS/HCC) (Primary Dx); Asthma-COPD overlap syndrome (CMS/HCC); Chronic diastolic heart failure (CMS/HCC); Other fatigue; Impaired mobility and activities of daily living; Hypertension, unspecified type 09/27/2024 Travel 09/21/2024 Refill [facility] [address] [place] [address] Radha Renee MD Fibromyalgia 09/19/2024 Patient Outreach [facility] [address] [place] [address] Edwige Headley MD Pre-visit Planning (SDOH screening negative and Tobacco screening negative) 09/14/2024 10:30 AM EDT Clinical Support [facility] [address] [place] [address] Maria Guadalupe Rodríguez, AC Fibromyalgia (Primary Dx); Long-term current use of opiate analgesic 09/14/2024 Travel 09/05/2024 Refill [facility] [address] [place] [address] Edwige Headley MD Headache, common migraine, intractable 09/05/2024 Telephone [facility] [address] [place] [address] Edwige Headley MD Appointment Request 09/05/2024 Refill [facility] [address] [place] [address] Edwige Headley MD Fibromyalgia 09/03/2024 Refill [facility] [address] [place] [address] Edwige Headley MD 09/02/2024 Refill [facility] [address], [place] [phone] Edwige Headley MD 08/29/2024 Refill [facility] [address], [place] [phone] Radha Renee MD Left hand pain 08/29/2024 Refill [facility] [address] [place], [place] [phone] Maryuri Miller FNP 08/25/2024 Telephone [facility] [address] [place] [phone] Edwige Headley MD VCare Form 08/19/2024 11:20 AM EDT Office Visit [facility] [address] [place] [phone] Jordy Downs MD Vomiting, unspecified vomiting type, unspecified whether nausea present 08/18/2024 8:45 AM EDT Telemedicine [facility] [address], [place] [phone] Robert High MD Trigger middle finger of left hand (Primary Dx) 08/18/2024 Travel 08/17/2024 Travel 08/17/2024 Telephone [facility] [address], [place] [phone] Maria Guadalupe Rodríguez, RN talent director 08/17/[address] [address] Edwige Headley MD Appointment Request 08/17/[address] [phone] Edwige Headley MD Nurse Triage 08/03/2024 Orders Only [address] [address] Radha Renee MD Alzheimer's disease, unspecified (CODE) ([facility]) from Last 3 Months Immunizations Immunization Administration Dates Next Due Influenza High-dose Quadrivalent [...] Recorded Patient Health Questionnaire-2 Score 4 10/29/2023 Internet Access Answer Date Recorded Internet Access Q1 Yes 09/19/2024 Internet Access Q2 Not on file 09/19/2024 Comments Unknown Sex and Gender Information Value Date Recorded Sex Assigned at Female 08/20/2022 3:54 PM EDT Legal Sex Female 1:29 PM EST Gender Identity Female 08/20/2022 3:54 PM EDT Sexual Orientation Straight 08/20/2022 3: 54 PM EDT Last Filed Vital Signs Vital Sign Reading Time Taken Comments Blood Pressure 125/74 09/27/2024 3:03 PM EDT Pulse 66 09/27/2024 3:02 PM EDT Temperature 36.2 C (97.2 F) 09/27/2024 2:08 PM EDT Respiratory Rate 18 09/27/2024 3:03 PM EDT Oxygen Saturation 95% 09/27/2024 3:03 PM EDT Inhaled Oxygen Concentration - - Weight 54.1 kg (119 lb 3.2 oz) 09/27/2024 2:08 P M EDT Height 152.4 cm (5') 07/27/2024 8:47 AM EDT Body Mass Index 23.28 07/27/2024 8:47 AM EDT Plan of Treatment Upcoming Encounters Date Type Department Care Team ([facility] st Contact Info) Description 11/23/2024 11:00 AM EDT Clinical Support [facility] [address] [facility] [place] [address] Maria Guadalupe Rodríguez, RN [address] [place] [address] Health Maintenance Due Date Last Done Comments Eye Exam 1955 COVID-19 Vaccine ( season) 2024 07/20/2023 Depression Monitoring 04/29/2024 10/29/2023, 024 Lipid Panel 08/29/2024 08/30/2023, 08/21/2022 Diabetes: Hemoglobin A1C 03/30/2025 025, 05/30/2024, 08/30/2023, Additional history exists Alcohol/Substance Use Screening 06/19/2025 06/19/2024 Diabetes: Foot Exam 06/19/2025 06/19/2024, 06/19/2024, 06/19/2024, Additional history exists Diabetes: Urine Protein Screening 07/18/2025 07/18/2024, 08/21/2022 SDOH Screening 09/19/2025 09/19/2024 Tobacco Screening 09/27/2025 09/27/2024 DTaP/Tdap/Td Vaccines (2 - Td or Tdap) [...] patient's age to complete this topic Meningococcal B Vaccine Aged Out No l onger eligible based on patient's age to complete [...] Name Priority Date/Time Associated Diagnosis Comments POCT GLYCATED HEMOGLOBIN, TOTAL Routine 09/27/2024 3:04 PM EDT Diabetes mellitus due to underlying condition with hyperglycemia, without long-term current use of insulin ([facility]) POCT GLUCOSE Routine 09/27/2024 3:03 PM EDT Diabetes mellitus due to underlying condition with hyperglycemia, without long-term current use of insulin ([facility]) POCT SENAIT-14 URINE DRUG SCREEN Routine 09/14/2024 10:35 AM EDT Long-term current use of opiate analgesic Fibromyalgia POCT INFLUENZA B (ID NOW RAPID MOLECULAR) Routine 08/19/2024 11:27 AM EDT Vomiting, unspecified vomiting type, unspecified whether nausea present POCT INFLUENZA A (ID NOW RAPID MOLECULAR) Routine 08/19/2024 11:27 AM EDT Vomiting, unspecified vomiting type, unspecified whether nausea present POCT RAPID COVID ANTIGEN Routine 08/19/2024 11:27 AM EDT Vomiting, unspecified vomiting type, unspecified whether nausea present ALBUMIN, RANDOM URINE W/CREATININE Routine 07/18/2024 9:57 AM EST Type 2 diabetes mellitus with hyperglycemia, without long-term current use of insulin ([facility]) HEPATITIS C AB W/REFL TO HCV RNA, QN, PCR Routine 07/07/2024 9:23 AM EST Chronic diastolic heart failure (CMS/HCC) LIPID PANEL, STANDARD Routine 08/30/2023 10:36 AM EDT from Last 3 Months or Most Recently Relevant to Health Maintenance Results * (ABNORMAL) POCT HGB A1C (09/27/2024 3:04 PM EDT) Hemoglobin A1C 6.2(A) 4.0 - 6.0 % QC Media Lot # [id number] Lot# Expiration Date [id number] Blood 09/27/2024 3:04 PM EDT Edwige Headley MD POINT OF CARE TEST ENTER/EDIT ORDERABLES Final Result * POCT Glucose (09/27/2024 3:03 PM EDT) Glucose Blood, POC 134 60 - 200 mg/dL QC Media Lot # [id number] Lot# Expiration Date [id number] Blood Capillary blood specimen / Unknown 09/27/2024 3:03 PM EDT Edwige Headley MD POINT OF CARE TEST ENTER/EDIT ORDERABLES Final Result * POCT SENAIT-14 Urine Drug Screen (09/14/2024 10:35 AM EDT) Urine Urine specimen obtained by clean catch procedure / Unknown 09/14/2024 10:35 AM EDT Narrative Maria Guadalupe Rodríguez RN - 09/14/2024 10:35 AM EDT negative AMP, BAR, BUP, BZO, ANTON, FTY, MDMA, MET, MOP, MTD, OXY, PCP, TCA, THC. Lot# [id number] Exp: 01-03-26 Edwige Headley MD POINT OF CARE TEST ENTER/EDIT ORDERABLES Final Result * Influenza B (ID NOW Rapid Molecular) (08/19/2024 11:27 AM EDT) Influenza B Negative Negative, Indeterminate [facility] Swab 08/19/2024 11:2 7 AM EDT us Jordy Downs MD POINT OF CARE TEST ENTER/EDIT OR DERABLES Final Result Performing Organization Address [facility] Co de Phone Number [facility] [address] [place] [phone] * Influenza A (ID NOW Rapid Molecular) (08/19/2024 11:27 AM EDT) Pathologist [facility] Influenza A Negative Negative, Indeterminate [facility] Swab 08/19/2024 11:2 7 AM EDT Jordy Downs MD POINT OF CARE TEST ENTER/EDIT OR DERABLES Final Result Performing Organization Address [facility] Co de Phone Number [facility] [address] [place] [phone] * POCT Rapid COVID Ag (08/19/2024 11:27 AM EDT) Pathologist [facility] Rapid COVID Ag Negative [facility] Swab 08/19/2024 11:2 7 AM EDT Jordy Downs MD POINT OF CARE TEST ENTER/EDIT OR DERABLES Final Result Performing Organization Address [facility] de Phone Number [facility] [address] [place] [phone] * Albumin, Random Urine W/Creatinine (07/18/2024 9:57 AM EST) Pathologist [facility] Creatinine, Urine 47.58 mg/dL [facility] Microalbumin Urine 13.0 mg/L [facility] Microalbum Creatinine Ratio Ur 27.3 <30 ug/mg cr [facility] Comment:Albumin/Creatinine R atio Reference Ranges: Normal: < 30 ug/mg creatinine Microalbuminuria: 30 - 300 ug/mg creatinineClinical Albuminuria: > 300 ug/mg creatinine Urine (Urine, Random) 07/18/2024 9:57 AM EST 07/18/2024 2:15 PM EST us Radha Renee MD LAB URINE ORDERABLES Final Result Performing Organization Address [facility] Co de Phone Number [facility] [address] [place] [phone] * Hepatitis C Antibody with Reflex to HCV, RNA, Quantitative, Real-Time PCR (07/07/2024 9:23 AM EST) Hepatitis C Antibody Nonreactive Nonreactive [facility] Comment:Antibodies to HCV no t detected; does not exclude early acuteHCV infection. Blood Venous blood specimen / Unknown 07/07/2024 9:23 AM EST 07/07/2024 1:55 PM EST us Radha Renee MD LAB BLOOD ORDERABLES Final Result Performing Organization Address [facility] Co de Phone Number [facility] [address] [place] [phone] * Lipid Panel, Standard (08/30/2023 10:36 AM EDT) Triglycerides 39 <150 mg/dL [facility] Comment:Desirable Triglyceri de: less than 150 mg/dLBorderline High Triglyceride 150-199 mg/dLHigh Triglyceride: 200-499 mg/dLVery High Triglyceride: greater than or equal to 5OO mg/dL Cholesterol 116 <200 mg/dL [facility] Comment:Desirable Cholestero l: less than 200 mg/dLBorderline High Cholesterol: 200-239 mg/dLHigh Cholesterol: greater than 239 mg/dL LDL Cholesterol Calculated 35 <100 mg/dL [facility] Comment:Desirable LDL: less than 100 [...] Provider LAB BLOOD ORDERAB LES Final Result [facility] [address] [place] [phone] from Last 3 Months or Most Recently Relevant to Health Maintenance [facility] Care Teams Vamp Throater Relationship Specialty Start Date End Date Edwige Headley MD [address] [place] [phone] PCP - General Family Medicine 08/21/22
--- NOTE | 2024-11-03 16:25 | MHC.OFFVIS ---
Vital Signs 11/03/24 16:26 Height 5 ft Weight 117 lb 8 oz BMI 22.9 BP 100/66 Blood Pressure Location Rt brachial Position Sitting Pulse 73 Pulse Source Pulse Oximeter Pulse Oximetry (%) 95 Oxygen Delivery Method Room Air Intake Visit Reasons: Shortness of breath Allergies pregabalin (From Lyrica) Allergy (Intermediate, Verified 11/03/24 16:28) Rash HPI HPI Shortness of breath: Details: Ed is a pleasant 79 year old, never smoker, with underlying asthma COPD overlap syndrome, GERD, osteoporosis and diastolic dysfunction. She has been well controlled on Trelegy, rarely requiring albuterol MDI. She denies any visits to urgent care or hospitalizations related to respiratory distress. Today she presents for routine visit. [facility] Medical History Atherosclerotic cardiovascular disease PVD (peripheral vascular disease) Breast nodule Urinary incontinence Osteoporosis Dementia in Alzheimer's disease Chronic diastolic (congestive) heart failure Hypertension Vitamin D deficiency Carpal tunnel syndrome Cervical disc disorder CKD (chronic kidney disease), stage II TONY (generalized anxiety disorder) Vertigo CAD (coronary artery disease) GERD (gastroesophageal reflux disease) Migraine Diabetes mellitus Asthma Surgical History H/O hand surgery Hx of cardiac catheterization History of hernia repair History of left inguinal hernia repair History of right inguinal hernia repair History of cholecystectomy Hx of colonoscopy History of esophagogastroduodenoscopy (EGD) Family History Mother Heart problem Arthritis Social History Household Members: Spouse, Family and Children Housing: House Alcohol intake: never Patient Tobacco Use Status: Never used Tobacco Second Hand Smoke Exposure: No service: No Review of Systems Const Denies chills, Denies excessive sweating, Denies fever(s), Denies headache(s) and Denies night sweats Eyes Denies dry eyes, Denies irritation and Denies itchy eyes ENT Reports Normal hearing present, Denies headache(s), Denies nasal congestion, Denies nasal discharge, Denies post nasal drip and Denies sore throat Card Denies chest pain, Denies chest pain at rest, Denies chest pain with activity, Denies claudication, Denies leg edema, Denies dyspnea, Denies dyspnea on exertion, Denies orthopnea and Denies paroxysmal nocturnal dyspnea Resp Denies chest congestion, Denies cough, Denies excessive phlegm production, Denies pain on inspiration, Denies pain with cough, Denies dyspnea, Denies dyspnea on exertion, Denies stridor and Denies wheezing Musc Denies myalgias Neuro Reports Normal hearing present and Denies headache(s) Endo Denies excessive sweating Dav/Lymph Denies lymphadenopathy Aller/Immun Denies itchy eyes, Denies seasonal rhinorrhea and Denies wheezing Physical Exam Vital Signs: Last Vital Signs Pulse 73 11/03/24 16:26 BP 100/66 11/03/24 16:26 Pulse Ox 95 11/03/24 16:26 Oxygen Delivery Method Room Air 11/03/24 16:26 BMI result Body Mass Index 22.9 Const General: cooperative, healthy appearing, comfortable, no acute distress, well developed and alert Orientation/consciousness: patient oriented x3 Limitations: no limitations HEENT Head: Yes normal to inspection, Yes normocephalic and Yes atraumatic Ears: hearing grossly normal bilaterally and external ears normal Eyes General: appearance normal, both eyes and all related structures Eyelids: Yes eyelids normal Sclerae: sclerae normal EOM: EOMs intact bilaterally Neck Neck: Yes normal visual inspection and Yes no lymphadenopathy Lymphatic: no lymphadenopathy noted Chest Chest palpation & inspection: normal inspection of the chest Resp Effort & Inspection: normal respiratory effort, able to speak in complete sentences, no audible wheezes, no cough, no stridor, not tachypneic, no tripod positioning and no use of accessory muscles Auscultation: clear to auscultation bilaterally Cardio Jugular venous distension: no JVD Rate: regular rate Rhythm: regular rhythm Skin Other: warm, dry General skin exam: no rashes or lesions noted Neuro General: patient oriented x3 Cranial nerves: Yes Normal hearing present Cognition (Neuro): normal cognition Gait exam (Neuro): Normal gait present Extrem General: Yes normal to inspection, Yes capillary refill normal, Yes no clubbing, cyanosis or edema and Yes no pedal edema Psych Appearance: grossly normal and well kempt Speech and movement: Normal speech and movement present and Clear speech present Affect: normal affect Attitude: cooperative Thought process: Normal thought process present Thought content: Normal thought content present Insight: Good insight present (Psych) Judgement: Good judgement present (Psych) Assessment & Plan Assessment & Plan (1) Asthma-COPD overlap syndrome: Code(s): J44.89 - Other specified chronic obstructive pulmonary disease Category: Medical (2) Dyspnea: Code(s): R06.00 - Dyspnea, unspecified Category: Medical Plan Encouraged increase use of albuterol when experiencing dyspnea and continue Trelegy. She is aware to call if symptoms become less controlled. All questions were answered and patient is in agreement of plan. Will follow-up in 6 months or sooner if needed. Coding Level of Care Code Est Pt Level 3 (80194) Diagnoses Asthma-COPD overlap syndrome J44.89 Dyspnea R06.00
[2024-11-03 16:26] VITALS: BP 100/66; PULSE 73; O2SAT 95; BMI 22.9
== END 2024-11-03 17:00 | disposition home or self-care (01) ==
LOC: HO.HPSW 15:58
PROVIDERS: PCP Family Medicine; Visit Provider Nurse Practitioner Family
DX: J44.89 Other specified chronic obstructive pulmonary disease (principal); R06.00 Dyspnea, unspecified
CPT/HCPCS: 99213

== ENCOUNTER → 2024-11-03 15:58 | Outpatient (BNVA) | payer OTHER, SELFPAY | PROVIDERS: PCP Family Medicine; Visit Provider Nurse Practitioner Family | DX: J44.89 Other specified chronic obstructive pulmonary disease (principal); R06.00 Dyspnea, unspecified | CPT/HCPCS: 99212 ==

== ENCOUNTER 2024-12-05 14:57 | Outpatient (AMB) | payer OTHER, SELFPAY ==
--- NOTE | 2024-12-05 15:09 | A.OFFVIS_ITS ---
Vital Signs 12/05/24 15:13 Height 5 ft Weight 117 lb BMI 22.8 Intake Visit Reasons: OV- Trigger SF, RF, MF of LT hand-Limited ROM Intake Note: Ed 79 yr old tajik speaking female presents today with her daughter Telly for a follow up visit for her middle and ring finger s/p trigger finger injection from 09/06/24. States injection helped with the locking of her middle finger how ever now she is having catching and locking in her index finger. Patient states she would like to discuss surgery. Hx of right index trigger release form 10/24/[address] Beckford. Per patient last A1C was about 2 months ago *6.6. Allergies pregabalin (From Lyrica) Allergy (Intermediate, Verified 12/05/24 15:19) Rash HPI HPI OV- Trigger SF, RF, MF of LT hand-Limited ROM: Details: Ed is a 79 year old right hand dominant Ukrainian speaking Diabetic woman who returns for her multiple left hand trigger fingers. She has a Hx of a right index trigger finger release, DOS: 10/25/23. She is seen today with her daughter. She was last seen and received a left middle & ring finger trigger injection on 09/06/24, with good relief for her middle finger She now complains of painful locking of her left index & ring fingers, but says her left middle finger locking has resolved. She finds difficulty with gripping activities. She ambulates using a walker. She has an extensive medical history, including Fibromyalgia, asthma, COPD, DM, CHF, CVD, Dementia, & Alzheimer's. No HgA1c on file. [facility] Medical History Atherosclerotic cardiovascular disease PVD (peripheral vascular disease) Breast nodule Urinary incontinence Osteoporosis Dementia in Alzheimer's disease Chronic diastolic (congestive) heart failure Hypertension Vitamin D deficiency Carpal tunnel syndrome Cervical disc disorder CKD (chronic kidney disease), stage II TONY (generalized anxiety disorder) Vertigo CAD (coronary artery disease) GERD (gastroesophageal reflux disease) Migraine Diabetes mellitus Asthma Surgical History (Reviewed 12/05/24 @ 15:21 by Enedelia Galvan [facility] H/O hand surgery Hx of cardiac catheterization History of hernia repair History of left inguinal hernia repair History of right inguinal hernia repair History of cholecystectomy Hx of colonoscopy History of esophagogastroduodenoscopy (EGD) Family History Mother Heart problem Arthritis Social History (Reviewed 12/05/24 @ 15:21 by Enedelia Galvan [facility] Household Members: Spouse, Family and Children Housing: House Alcohol intake: never Patient Tobacco Use Status: Never used Tobacco Second Hand Smoke Exposure: No service: No Physical Exam Vital Signs: BMI result Body Mass Index 22.8 Const General: no acute distress and alert Orientation/consciousness: patient oriented x3 Neuro General: patient oriented x3 Extrem Other: Evaluation of Left Upper Extremity: The patient is alert, oriented, and in no acute distress Neuro: Median, Ulnar, Radial nerves motor and sensory intact and sensation is normal to the tips of all digits Vascular: Cap refill brisk ROM: Visible locking & catching of the index and ring fingers Tender over the index & ring finger a1 patricia Now on more mild stiffness, being able to bring her fingertips to perhaps a cm from her palm No tenderness over the thumb, middle, or small finger a1 pulleys Psych Appearance: grossly normal Affect: normal affect Attitude: cooperative Assessment & Plan Assessment & Plan (1) Trigger ring finger of left hand: Code(s): M65.342 - Trigger finger, left ring finger Category: Medical (2) Trigger index finger of left hand: Code(s): M65.322 - Trigger finger, left index finger Category: Medical (3) Diabetes mellitus: Code(s): E11.9 - Type 2 diabetes mellitus without complications Category: Medical (4) Trigger finger, left middle finger: Code(s): M65.332 - Trigger finger, left middle finger Category: Medical (5) Fibromyalgia, primary: Code(s): M79.7 - Fibromyalgia Category: Medical (6) Dementia in Alzheimer's disease: Code(s): G30.9 - Alzheimer's disease, unspecified; F02.80 - Dementia in other diseases classified elsewhere, unspecified severity, without behavioral disturbance, psychotic disturbance, mood disturbance, and anxiety Category: Medical Plan Assessment & Plan: 1. Left ring finger trigger finger, S/P injection Date of injection: 09/06/24 This is her chief complaint today 2. Left index finger trigger finger I educated her and her daughter about this condition I discussed operative and non-operative treatment options The patient would like to proceed with surgery The risks and benefits of operative treatment were discussed with the patient and the patient wishes to proceed with surgery. These risks include, but are not limited to risk of damage to blood vessels, nerves, tendons, infection, recurrence, incomplete relief of preoperative symptoms, persistent pain, possible need for further surgery and the risks associated with regional blocks and anesthesia. The plan is to take the patient to the operating room sometime in the next few weeks for the following procedures: 1. Left index finger trigger release, under local 2. Left ring finger trigger release, under local All of the preoperative paperwork including the consent was reviewed today. All the patient's questions were answered. The patient understands that they will be contacted by our general surgery physician assistant soon to schedule this procedure She has several comorbidities, including Fibromyalgia, asthma, COPD, DM, CHF, CVD, Dementia, & Alzheimer's. Her daughter says her most recent HgA1c was 6.6% sometime in 09/2024 3. Left middle finger pre-trigger tenosynovitis, S/P injection Date of injection: 09/06/24 Improved following her injection 4. Right index finger trigger finger, S/P release DOS: 10/25/23 Doing well, no complaints Scribed for Oriana Beckford MD by Cole Coronel, internist medical doctor md, on 12/05/24 at 3:25 PM, EST. Coding Level of Care Code Est Pt Level 4 (09389) Diagnoses Trigger ring finger of left hand M65.342 Trigger index finger of left hand M65.322 Diabetes mellitus E11.9 Trigger finger, left middle finger M65.332 Fibromyalgia, primary M79.7 Dementia in Alzheimer's disease G30.9; F02.80
[2024-12-05 15:13] VITALS: BMI 22.8
--- OUTSIDE RECORDS SUMMARY | 2024-12-05 16:04 | XMS_ITS | Clinical Summary ---
Author Organization [email or web address] Address [address] [facility] [address] [place] [address] Care Team Providers Care Real Estate Sales Manager Name Role Phone Edwige Headley MD Primary Care Provider [phone] Allergies Active Allergy Reactions Criticality Noted Date [...] each 023 Active Lancets (OneTouch Delica Plus [id number]) misc 1 Units in the morning. Please [...] per day. 30 tablet 025 2025 Active famotidine (Pepcid) 40 MG tablet TAKE 1 TABLET BY MOUTH AT BEDTIME 90 tablet 025 Active calcium carbonate 1500 (600 Ca) MG tablet TAKE 1 TABLET BY MOUTH TWICE DAILY IN THE MORNING AND IN THE EVENING WITH FOOD 180 tablet 025 Active metFORMIN (Glucophage) 500 MG tablet TAKE 1 TABLET BY MOUTH THREE TIMES DAILY IN THE MORNING, AT NOON, AND IN THE EVENING 270 tablet 025 Active montelukast (Singulair) 10 MG tablet TAKE 1 TABLET BY MOUTH AT BEDTIME 90 tablet 1 Active Multiple Vitamin (Multivitamin) tablet TAKE 1 TABLET BY MOUTH EVERY MORNING 90 tablet 1 Active rosuvastatin (Crestor) 20 MG tablet TAKE 1 TABLET BY MOUTH AT BEDTIME 90 tablet 1 Active gabapentin (Neurontin) 300 MG capsule TAKE 1 CAPSULE BY MOUTH THREE TIMES DAILY 90 capsule Active sucralfate (Carafate) 1 GM/10ML suspension TAKE [...] 3 TIMES A WEEK 8 tablet Active senna (Senokot) 8.6 MG tablet Take 1 tablet by mouth Once per day. Active Polyethylene Glycol 3350 (PEG 3350) 17 GM/SCOOP powder TAKE 17 GM MIXED IN 8 OUNCES OF WATER ONCE DAILY Active Xiidra 5 % solution instill 1 drop in each eye twice daily Active Restasis 0.05 % ophthalmic emulsion instill 1 drop in each eye twice daily Active cyclobenzaprine (Flexeril) 10 MG tabletIndicatio ns:Fibromyalgia TAKE 1 TABLET BY MOUTH THREE TIMES DAILY FOR 10 DAYS 30 tablet Active memantine (Namenda) 5 MG tabletIndicatio ns:Alzheimer's disease, unspecified (CODE) (CMS/HCC) TAKE 1 TABLET BY MOUTH TWICE DAILY IN THE MORNING AND IN THE EVENING 60 tablet 2 Active naloxone (Narcan) 4 mg/0.1 mL nasal spray Administer 1 spray (4 mg) into affected nostril(s) if needed for opioid reversal. May repeat every 2-3 minutes if needed, alternating nostrils, until medical assistance becomes available. 2 each 2 025 2025 Active celecoxib (CeleBREX) 100 MG capsuleIndicati ons:Fibromyalgi a TAKE 1 CAPSULE BY MOUTH TWICE DAILY 60 capsule 1 025 Active Diclofenac Sodium 1 % gelIndications: Acute left-sided low back pain without sciatica APPLY 2 GRAMS TOPICALLY TO AFFECTED AREA(S) THREE TIMES DAILY 100 g 2 Active traMADol (Ultram) 50 MG tabletIndicatio ns:Acute left-sided low back pain without sciatica Take 1 tablet (50 mg) by mouth every 8 (eight) hours if needed for severe pain for up to 5 days. Temporary increase in dose 15 tablet 025 2024 Active cyclobenzaprine (Flexeril) 10 MG tabletIndicatio ns:Fibromyalgia Take 1 tablet (10 mg) by mouth 3 times daily for 10 days. 30 tablet 025 2024 Discontinued(R eorder (will not trigger notification to Pharmacy)) memantine (Namenda) 5 MG tabletIndicatio ns:Alzheimer's disease, unspecified (CODE) ([facility]) Take 1 tablet (5 mg) by mouth 2 times daily. 60 tablet 2 025 2024 Discontinued Diclofenac Sodium 1 % gelIndications: Left hand pain APPLY 2 GRAMS TOPICALLY TO AFFECTED AREA(S) THREE TIMES DAILY 100 g 025 2024 Discontinued(R eorder (will not trigger notification to Pharmacy)) celecoxib (CeleBREX) 100 MG capsuleIndicati ons:Fibromyalgi a TAKE 1 CAPSULE BY MOUTH TWICE DAILY 60 capsule 1 025 2024 Discontinued traMADol (Ultram) 50 MG tabletIndicatio [...] to Pharmacy)) traMADol (Ultram) 50 MG tabletIndicatio ns:Acute left-sided low back pain without sciatica Take 1 tablet (50 mg) by mouth every 12 (twelve) hours if needed for severe pain. 42 tablet 025 2024 Discontinued(O ther) Active Problems Problem Noted Date Diagnosed Date [...] Trelegy , which was prescribed by a licensed practical vocational nurse. Oxygen saturation appears stable at rest, but there is a need to assess for desaturation with ambulation. Plan: - Continue Trelegy 262.5/25 as prescribed by licensed practical vocational nurse - Assess oxygen saturation with ambulation - Consider low-dose chronic steroids (to be discussed with licensed practical vocational nurse) - Follow up with licensed practical vocational nurse on the of the current month Bilateral [...] swallow test came back normal. Referred to gizzard skin remover Assessment & Plan (07/20/2023 9:51 PM EST): [...] be prescribed steroids. Recommended patient to call Financial Operations Consultant to schedule an appointment to get further [...] 10/18/2023 3:30 PM Edwige Headley MD [facility] Assessment & Plan (03/19/2023 3:58 PM [...] and daughter. PLAN: 1. Follow up with [facility]: Not recommended for follow-up 2. Patient goal is to be able to manage her symptoms without medication. 3. Behavioral Recommendations a. Referral to Ind. therapy b. Practice of Coping skills for Anxiety c. Contact this greeting card writer for support as needed Encounters Date Type Department Care Team Description 11/30/2024 9:15 AM EDT Office Visit [facility] [address] [place] [address] Radha Renee MD Acute left-sided low back pain without sciatica (Primary Dx); Diabetes mellitus due to underlying condition with hyperglycemia, without long-term current use of insulin ([facility]) 11/30/2024 Travel 11/28/2024 Refill [facility] [address] [place] [address] Edwige Headley MD Fibromyalgia 11/28/2024 Telephone [facility] [address] [place] [address] Edwige Headley MD Nurse Triage 11/23/2024 11:00 AM EDT Clinical Support [facility] [address] [place] [address] Maria Guadalupe Rodríguez RN Fibromyalgia 11/23/2024 Refill [facility] [address] [place] [address] Maria Guadalupe Rodríguez, AC 11/23/2024 Travel 11/16/2024 Refill [facility] [address] [place] [address] Radha Renee MD Alzheimer's disease, unspecified (CODE) ([facility]) 11/13/2024 Telephone [facility] [address] [place] [address] Edwige Headley MD Med Refill 11/13/2024 Telephone [facility] [address] [place] [address] Edwige Headley MD requesting call back 11/07/2024 Refill [facility] [address] [place] [address] Edwige Headley MD Fibromyalgia 10/23/2024 Telephone [facility] [address] [place] [phone] Edwige Headley MD Form status request 10/23/2024 Refill [facility] [address] [place] [address] Radha Renee MD 10/20/2024 Telephone [facility] [address] [place] [phone] Edwige Headley MD Medical Necessity Form 10/17/2024 Refill [facility] [address] [place] [address] Maria Guadalupe Rodríguez RN Fibromyalgia 10/17/2024 Telephone [facility] [address] [place] [phone] Edwige Headley MD Med Refill 09/29/2024 Telephone [facility] [address] [place] [address] Edwige Headley MD 09/27/2024 2:00 PM EDT Office Visit [facility] [address] [place] [address] Edwige Headley MD Diabetes mellitus due to underlying condition with hyperglycemia, without long-term current use of insulin (CMS/HCC) (Primary Dx); Asthma-COPD overlap syndrome (CMS/HCC); Chronic diastolic heart failure (CMS/HCC); Other fatigue; Impaired mobility and activities of daily living; Hypertension, unspecified type 09/27/2024 Travel 09/21/2024 Refill [facility] [address] [place] [address] Radha Renee MD Fibromyalgia 09/19/2024 Patient Outreach [facility] [address] [place] [address] Edwige Headley MD Pre-visit Planning (SDOH screening negative and Tobacco screening negative) 09/14/2024 10:30 AM EDT Clinical Support [facility] [address] [place] [address] Maria Guadalupe Rodríguez RN Fibromyalgia (Primary Dx); Long-term current use of opiate analgesic 09/14/2024 Travel 09/05/2024 Refill [facility] [address] [place] [address] Edwige Headley MD Headache, common migraine, intractable 09/05/[address] [address] Edwige Headley MD Appointment Request 09/05/2024 Refill [facility] [address] [place] [phone] Edwige Headley MD Fibromyalgia from Last 3 Months Immunizations Immunization Administration [...] Sign Reading Time Taken Comments Blood Pressure 151/83 11/30/2024 9:16 AM EDT Pulse 70 11/30/2024 9:16 AM EDT Temperature 36.3 C (97.3 F) 11/30/2024 9:16 AM EDT Respiratory Rate 20 11/30/2024 9:16 AM EDT Oxygen Saturation 97% 11/30/2024 9:16 AM EDT Inhaled Oxygen Concentration - - Weight 54 kg (119 lb) 11/30/2024 9:16 AM EDT Height 152.4 cm (5') 11/30/2024 9:16 AM EDT Body Mass Index 23.24 11/30/2024 9:16 AM EDT Plan of Treatment Upcoming Encounters Date Type Department Care Team (Late st Contact Info) Description 01/12/2025 3:15 PM EDT Office Visit [facility] [address] [place] [address] Edwige Headley MD [address] [place] [address] 02/01/2025 2:00 PM EDT Clinical Support [facility] [address] [facility] [place] [address] Maria Guadalupe Rodríguez, RN [address] [place] [address] Health Maintenance Due Date Last Done Comments Eye Exam 1955 COVID-19 Vaccine ( season) 2024 07/20/2023 Depression Monitoring 04/29/2024 10/29/2023, 024 Lipid Panel 08/29/2024 08/30/2023, 08/21/2022 Influenza Vaccine (#1) 2025 , 07/20/2023, 01/02/2022 Diabetes: Hemoglobin A1C 03/30/2025 025, 05/30/2024, 08/30/2023, Additional history exists Alcohol/Substance Use Screening 06/19/2025 06/19/2024 Diabetes: Foot Exam 06/19/2025 06/19/2024, 06/19/2024, 06/19/2024, Additional history exists Diabetes: Urine Protein Screening 07/18/2025 07/18/2024, 08/21/2022 SDOH Screening 09/19/2025 09/19/2024 Tobacco Screening 11/30/2025 11/30/2024 DTaP/Tdap/Td Vaccines (2 - Td or Tdap) 12/11/2032 12/11/2022 Pneumococcal Vaccine: 50+ Years Completed 01/02/2022 Zoster Vaccines Completed 02/23/2023, 12/11/2022 RSV Patients and Patients Aged 60 years or older Completed 02/03/2024 Hepatitis C Screening Completed 07/07/2024 HIB Vaccines [...] Date/Time Associated Diagnosis Comments POCT GLUCOSE Routine 11/30/2024 9:44 AM EDT Diabetes mellitus due to underlying condition with hyperglycemia, without long-term current use of insulin ([facility]) POCT SENAIT-14 URINE DRUG SCREEN Routine 11/23/2024 12:02 PM EDT Fibromyalgia POCT GLYCATED HEMOGLOBIN, TOTAL Routine 09/27/2024 3:04 PM EDT Diabetes mellitus due to underlying condition with hyperglycemia, without long-term current use of insulin ([facility]) POCT GLUCOSE Routine 09/27/2024 3:03 PM EDT Diabetes mellitus due to underlying condition with hyperglycemia, without long-term current use of insulin ([facility]) POCT SENAIT-14 URINE DRUG SCREEN Routine 09/14/2024 10:35 AM EDT Long-term current use of opiate analgesic Fibromyalgia ALBUMIN, RANDOM URINE W/CREATININE Routine 07/18/2024 9:57 AM EST Type 2 diabetes mellitus with hyperglycemia, without long-term current use of insulin ([facility]) HEPATITIS C AB W/REFL TO HCV RNA, QN, PCR Routine 07/07/2024 9:23 AM EST Chronic diastolic heart failure ([facility]) LIPID PANEL, STANDARD Routine 08/30/2023 10:36 AM EDT from Last 3 Months or Most Recently Relevant to Health Maintenance Results * POCT Glucose (11/30/2024 9:44 AM EDT) Only the most recent of2 resultswithin the time period is included. Glucose Blood, POC 134 60 - 200 mg/dL QC Media Lot # [id number] Lot# Expiration Date Blood Capillary blood specimen / Unknown 11/30/2024 9:44 AM EDT Radha Renee MD POINT OF CARE TEST ENTER/ED IT ORDERABLES Final Result * (ABNORMAL) POCT SENAIT-14 Urine Drug Screen (11/23/2024 12:02 PM EDT) Only the most recent of2 resultswithin the time period is included. Pathologist [facility] THC Negative Negative Cocaine Screen, Urine Negative Negative Opiate Screen, Urine Negative Negative Methamphetamine Screen Urine Negative Negative Amphetamine Screen, Urine Negative Negative Benzodiazepines Screen, Urine Negative Negative Barbiturate Screen, Urine Negative Negative Methadone Screen, Urine Negative Negative Buprenophine Screen, Urine Negative Negative TCA, Urine Positive(A) Negative MDMA Urine Negative Negative ng/mL Oxycodone Screen, Urine Negative Negative Phencyclidine (PCP), Urine Negative Negative Propoxyphene, Urine Negative Negative Fentanyl, Urine Negative Negative Urine Urine specimen obtained by clean catch procedure / Unknown 11/23/2024 12:02 PM EDT Result [facility] Edwige Headley MD POINT OF CARE TEST ENTER/EDIT ORDERABLES Final Result * (ABNORMAL) POCT HGB A1C (09/27/2024 3:04 PM EDT) Hemoglobin A1C 6.2(A) 4.0 - 6.0 % QC Media Lot # [id number] Lot# Expiration Date [id number] Blood 09/27/2024 3:04 PM EDT Edwige Headley MD POINT OF CARE TEST ENTER/EDIT ORDERABLES Final Result * Albumin, Random Urine W/Creatinine (07/18/2024 9:57 AM EST) Creatinine, Urine 47.58 mg/dL [facility] Microalbumin Urine 13.0 mg/L [facility] Microalbum Creatinine Ratio Ur 27.3 <30 ug/mg cr [facility] Comment:Albumin/Creatinine R atio Reference Ranges: Normal: < 30 ug/mg creatinine Microalbuminuria: 30 - 300 ug/mg creatinineClinical Albuminuria: > 300 ug/mg creatinine Urine (Urine, Random) 07/18/2024 9:57 AM EST 07/18/2024 2:15 PM EST us Radha Renee MD LAB URINE ORDERABLES Final Result Performing Organization Address [facility] Co de Phone Number [facility] [address] [place] [phone] * Hepatitis C Antibody with Reflex to HCV, RNA, Quantitative, Real-Time PCR (07/07/2024 9:23 AM EST) Hepatitis C Antibody Nonreactive Nonreactive [facility] Comment:Antibodies to HCV no t detected; does not exclude early acuteHCV infection. Blood Venous blood specimen / Unknown 07/07/2024 9:23 AM EST 07/07/2024 1:55 PM EST us Radha Renee MD LAB BLOOD ORDERABLES Final Result Performing Organization Address City/[facility] Co de Phone Number [facility] [address] [place] [phone] * Lipid Panel, Standard (08/30/2023 10:36 AM EDT) Triglycerides 39 <150 mg/dL [facility] Comment:Desirable Triglyceri de: less than 150 mg/dLBorderline High Triglyceride 150-199 mg/dLHigh Triglyceride: 200-499 mg/dLVery High Triglyceride: greater than or equal to 5OO mg/dL Cholesterol 116 <200 mg/dL [facility] Comment:Desirable Cholestero l: less than 200 mg/dLBorderline High Cholesterol: 200-239 mg/dLHigh Cholesterol: greater than 239 mg/dL LDL Cholesterol Calculated 35 <100 mg/dL [facility] Comment:Desirable LDL: less than 100 mg/dLNear Optimal/Above Optimal LDL: 110- 129 mg/dLBorderline High LDL: 130-159 mg/dLHigh LDL: 160-189 mg/dLVery High LDL: greater than or equal to 190 mg/dL HDL Cholesterol 74 >40 mg/dL [facility] Comment:Desirable HDL: great er than 40 mg/dL Note: This HDL assay may give artificially low results in patients with liver disease. 08/30/2023 10:3 6 AM EDT 08/30/2023 10:41 AM EDT us Generic External Data Provider LAB BLOOD ORDERAB LES Final Result Performing Organization Address City/State/[facility] Co de Phone Number [facility] [address] [place] [phone] from Last 3 Months or Most Recently Relevant to Health Maintenance [facility] Care Teams Real Estate Sales Manager Relationship Specialty Start Date End Date Edwige Headley MD [address] [place] [address] PCP - General Family Medicine 08/21/22
--- OUTSIDE RECORDS SUMMARY | 2024-12-05 16:04 | XMS_ITS | Data Portability ---
Author Organization [employer] [facility], [place] [facility] [employer] [facility] Address [address] [place] [address] Care Team Providers Care Die Technician Name Role Phone HIM [facility] OTHER [facility] OTHER Assessment Encounter Date Assessment Date Assessment LastModified by Organization Details LastModified Time 10/13/2023 10/13/2023 I have reviewed and agree with the assessment and plan as documented by the apprenticeship representative. I provided real-time medical direction for this [...] one 1 % topical cream 2023 024 [facility], [address] [place] [address], [id number], 14:48:38 Patient TargetsNo targets recorded. Patient InstructionsNo [...] Available Not Available No t Available OneTouch Ultra Test strips TEST BLOOD SUGAR EVERY [...] Respiratory rate Body temperature Heart rate Systolic And Diastolic Provider Name and Address Organization Details Last Updated DateTime 4 99 % 99 % 28853.6 16 g 16 /min 98.1 [degF] 86 /min 138/90 mm[Hg] Not Available [employer] - production 4 18:14:31 Social History None recorded. Functional Status None recorded. Mental Status None recorded. Family History Nothing Reported. Medical History No medical history recorded. Gynecological HistoryNo gynecological history recorded. Obstetrics History GPAL:G 0 P 0 0 0 0 Past Encounters Encounter ID Performer Location Encounter Start Date Encounter Closed Date Diagnosis/Indication Diagnosis SNOMED-CT Code Diagnosis ICD10 Code Diagnosis Note [id number] Rita Haile MD Main - [facility] [address] [place] [address] [phone] 10/13/2023 18:14:24 10/14/2023 10:34:19 Contact dermatitis 61186535 L25.9 Health Concerns Section Related Observation LastModified by Organization Detai ls LastModified Time None Recorded Concern Status LastModified by Organization Details LastModified Time None Recorded Advance Directives Directive None Recorded Payers Insurance Date Sequence Insurance Name Policy Number Policy Sifuentes Covered Member ID Sifuentes Member ID Guarantor Name 10/13/2023 1 [facility] - DOS ON OR AFTER 2022 - MEDICARE [place]VANTAGE [place] (MEDICARE REPLACEMENT/ADV ANTAGE - PPO) Ed Kumarpo [id number] Ed Kumarpo 10/13/2023 1 [facility] - DOS ON OR AFTER 2022 - DUAL ELIGIBLE - CUSTODIAL OPTIONS AND ONE CARE (MEDICARE REPLACEMENT/ADV ANTAGE - HMO) Ed Kumarpo [id number] Ed Hoffmann Notes Date Note Type Note [...] .................... .................... .................... .................... .................... .................... . Bar Supervisor Note From Michael Nielson: Pt co rash/redness with itching burning to skin after using L Or al cream. Pt has discontinued use. Pt using cetafil lotion with no relief. Pt denies pain , NVD cp sob edema. Baseline vitals assessed. Rash assessed, area pink red , no bumps or raised skin , no wheeping or bleeding. Afebrile. C contacted and hydrocortisone RX called in for use 2x per day topical. Pt advised to follow up with pcp. Pt eduction on signs indicating the ER. .................... .................... .................... .................... .................... .................... .................... . Disposition: Dwayne Haile MD [address] [facility],[address], [place], [address], [employer] 10/13/2023 19:19:35 OBGyn Episode No OBEpisode recorded.
== END 2024-12-05 16:24 | disposition home or self-care (01) ==
LOC: HO.HOS 14:58
PROVIDERS: PCP Family Medicine; Visit Provider Orthopaedic Surgery
DX: M65.342 Trigger finger, left ring finger (principal); M65.322 Trigger finger, left index finger; E11.9 Type 2 diabetes mellitus without complications; M65.332 Trigger finger, left middle finger; M79.7 Fibromyalgia; G30.9 Alzheimer's disease, unspecified; F02.80 Dementia in other diseases classified elsewhere, unspecified severity, without behavioral disturbance, psychotic disturbance, mood disturbance, and anxiety
CPT/HCPCS: 99214

== ENCOUNTER → 2024-12-05 14:57 | Outpatient (BNVA) | payer OTHER, SELFPAY | PROVIDERS: PCP Family Medicine; Visit Provider Orthopaedic Surgery | DX: M65.342 Trigger finger, left ring finger (principal); M65.322 Trigger finger, left index finger; E11.9 Type 2 diabetes mellitus without complications; M65.332 Trigger finger, left middle finger; G30.9 Alzheimer's disease, unspecified; F02.80 Dementia in other diseases classified elsewhere, unspecified severity, without behavioral disturbance, psychotic disturbance, mood disturbance, and anxiety | CPT/HCPCS: 99212 ==

== ENCOUNTER 2025-01-08 10:17 | Day surgery (SDC) | payer OTHER, SELFPAY ==
[2025-01-08 15:42] VITALS: BMI 22.8
[2025-01-08 15:52] VITALS: BP 154/76; PULSE 72; RESP 18; TEMP 36.9; O2SAT 98
--- NOTE | 2025-01-08 16:57 | MHC.SHP ---
Pre-Procedural Eval Section A - 24 Hr Update-Section A only Date of Service: 01/08/25 The patient is an INPATIENT: No Changes since office visit: No Cold of Flu in the past 2 weeks, No New Medical Problems, No Changes in Medication and No Patient answered all questions The patient has been examined within 24 hours of the surgical procedure. The History & Physical has been completed within 30 days and I have reviewed it.: Yes Section B - Complete if H&P > 30 days Chief Complaint: index and ring trigger finger Allergies: Allergies Allergy/AdvReac Type Severity Reaction Status Date / Time pregabalin (From Lyrica) Allergy Intermediate Rash Verified 12/05/24 15:19 Plan Diagnosis/Plan: Unchanged I have reviewed the history and physical and performed a pertinent physical examination on my patient. No changes have occurred unless specified. Time Spent With Patient Time: Total time managing care of this patient today ____ minutes.
--- NOTE | 2025-01-08 16:59 | W.PM.OPN ---
Operative Note Operative Note Date of Service: 01/08/25 Narrative: Operative Note Preop diagnosis: 1. Left index finger Trigger finger 2. Left ring finger trigger finger Postop diagnosis: Same Procedure: 1. Left index finger A1 patricia release 2. Left ring finger A1 patricia release Surgeon: Oriana Beckford MD Director Clinical Applications: None Anesthesia: local block using 1% lidocaine with epinephrine Findings: No locking or catching after A1 patricia release EBL: Less than 5 mL Tourniquet time: None Specimens: None Complications: None Disposition: Brought to recovery room in stable condition Plan: Follow-up for 10-14 days for wound check and suture removal Indications: The patient is 79 years old, with left ring finger and left index finger trigger fingers that have been unresponsive to nonoperative management. The risks and benefits of operative treatment including but not limited to risk of damage to blood vessels, nerves, tendons, infection, persistent pain, persistent symptoms, recurrence or possible need for additional surgery were discussed with the patient and the patient wishes to proceed with surgery. Procedure: Once consent was obtained a local block was performed in the preop area using a combination of 1% lidocaine with epinephrine. The patient was then brought back to the operating suite and placed on the operative table in supine position. The left upper extremity was prepped and draped in a standard surgical fashion. Once assured that we had a good block, a 1.5 cm oblique incision was made centered over the A1 patricia of the left index finger . The incision was made through the skin to the subcutaneous tissues using a #15 blade. Careful dissection was made down to the level of the A1 patricia using tenotomy scissors, with care being taken to protect the nearby neurovascular structures. A longitudinal incision was made in the A1 patricia 1st using a #15 blade, then using tenotomy scissors under direct visualization. The A1 patricia was noted to be thickened. Following our A1 patricia release, we no longer saw any locking or catching of the digit with flexion and extension. Once assured that we had a good block, a 1.5 cm oblique incision was made centered over the A1 patricia of the left ring finger . The incision was made through the skin to the subcutaneous tissues using a #15 blade. Careful dissection was made down to the level of the A1 patricia using tenotomy scissors, with care being taken to protect the nearby neurovascular structures. A longitudinal incision was made in the A1 patricia 1st using a #15 blade, then using tenotomy scissors under direct visualization. The A1 patricia was noted to be thickened. Following our A1 patricia release, we no longer saw any locking or catching of the digit with flexion and extension. Once satisfied with our A1 patricia release the wound was copiously irrigated with normal saline and hemostasis was obtained with a brief period of local pressure. The skin edges were reapproximated with some 5.0 nylon suture material and a sterile dressing was applied. The patient appears to have tolerated the procedure well and with no complications. All digits were well vascularized at the conclusion of the case.
== END 2025-01-08 17:58 | disposition home or self-care (01) ==
PROVIDERS: PCP Family Medicine; Visit Provider Orthopaedic Surgery
PROC: (CPT 26055; principal; 2025-01-08 14:00)
DX: M65.322 Trigger finger, left index finger (principal); M65.342 Trigger finger, left ring finger; I11.0 Hypertensive heart disease with heart failure; I50.9 Heart failure, unspecified; E11.9 Type 2 diabetes mellitus without complications; J44.9 Chronic obstructive pulmonary disease, unspecified; M79.7 Fibromyalgia; G30.8 Other Alzheimer's disease; F02.80 Dementia in other diseases classified elsewhere, unspecified severity, without behavioral disturbance, psychotic disturbance, mood disturbance, and anxiety; Z99.89 Dependence on other enabling machines and devices; Z88.8 Allergy status to other drugs, medicaments and biological substances; Z98.890 Other specified postprocedural states
CPT/HCPCS: 26055 ×2; J0165; J2003; J2004

== ENCOUNTER → 2025-01-08 10:17 | Outpatient (BNV) | payer OTHER, SELFPAY | PROVIDERS: PCP Family Medicine; Visit Provider Orthopaedic Surgery | DX: M65.342 Trigger finger, left ring finger (principal); M65.322 Trigger finger, left index finger | CPT/HCPCS: 26055 ==

== ENCOUNTER 2025-01-23 09:02 | Outpatient (AMB) | payer OTHER, SELFPAY ==
[2025-01-23 09:09] VITALS: BMI 22.8
--- NOTE | 2025-01-23 09:09 | MHC.OFFVIS ---
Vital Signs 01/23/25 09:09 Height 5 ft Weight 117 lb BMI 22.8 Intake Visit Reasons: PO LT IF/RF triggers 01/08/25 AR Intake Note: Ed is a 79 year old right hand dominant female who presents today post-operatively status post Left Index & Left Ring Trigger Finger Release performed by Dr. Beckford on 01/08/25. Patient reports she continues experiencing pain however she is not taking any pain medications. She is working on ROM but is unable to make a closed fist. Patient is unsure if her fingers are still triggering because of this. Sutures removed and steri strips applied. Home Care Liaison Required: No Accompanied by: Daughter Allergies pregabalin (From Lyrica) Allergy (Intermediate, Verified 01/23/25 09:13) Rash HPI HPI PO LT IF/RF triggers 01/08/25 AR: Details: Ed is a 79 year old right hand dominant female who presents today post-operatively status post Left Index & Left Ring Trigger Finger Release performed by Dr. Beckford on 01/08/25. Patient reports she continues experiencing pain however she is not taking any pain medications. She is working on ROM but is unable to make a full closed fist. Patient is unsure if her fingers are still triggering because of this. Sutures removed and steri strips applied. [facility] Medical History Atherosclerotic cardiovascular disease PVD (peripheral vascular disease) Breast nodule Urinary incontinence Osteoporosis Dementia in Alzheimer's disease Chronic diastolic (congestive) heart failure Hypertension Vitamin D deficiency Carpal tunnel syndrome Cervical disc disorder CKD (chronic kidney disease), stage II TONY (generalized anxiety disorder) Vertigo CAD (coronary artery disease) GERD (gastroesophageal reflux disease) Migraine Diabetes mellitus Asthma Surgical History H/O hand surgery Hx of cardiac catheterization History of hernia repair History of left inguinal hernia repair History of right inguinal hernia repair History of cholecystectomy Hx of colonoscopy History of esophagogastroduodenoscopy (EGD) Family History Mother Heart problem Arthritis Social History Household Members: Spouse, Family and Children Housing: House Alcohol intake: never Patient Tobacco Use Status: Never used Tobacco Second Hand Smoke Exposure: No service: No Review of Systems Const All systems reviewed & are unremarkable except as noted in HPI and below Physical Exam Vital Signs: BMI result Body Mass Index 22.8 Extrem Other: Patient is alert, oriented, and in no acute distress. Neuro: Normal sensation of the tips of all digits of the left hand at this time Vascular: Cap refill brisk Pain: Minimal tenderness to palpation noted around incision sites over A1 pulleys of left index and ring fingers Discomfort with making a closed fist in the MCP joints ROM: No further visible or palpable locking and catching With encouragement, patient is able to make a closed fist with the left hand Skin: Well approximated and well healing incision sites noted over the A1 pulleys of the left index and ring fingers No lacerations or abrasions. General: No ecchymosis, erythema, or evidence of infection. Psych: Appears grossly normal Affect normal Attitude cooperative Assessment & Plan Assessment & Plan (1) Trigger index finger of left hand: Code(s): M65.322 - Trigger finger, left index finger Category: Medical (2) Trigger ring finger of left hand: Code(s): M65.342 - Trigger finger, left ring finger Category: Medical Plan 1. Status post left index finger and ring finger trigger releases DOS 01/08/2025 Patient appears to be recovering fairly well postoperatively Patient is educated about the typical recovery course At this time, patient is encouraged to continue working on range of motion of the left hand, as I feel she has developed some stiffness, particularly of the MCP joints of the left hand Patient is educated on 2 lb weight limit for further 2 weeks, no under water for 1 more week Patient understands this is amenable to this plan Follow-up as needed postoperatively Coding Level of Care Code Global (78785) Diagnoses Trigger index finger of left hand M65.322 Trigger ring finger of left hand M65.342
--- OUTSIDE RECORDS SUMMARY | 2025-01-23 10:23 | XMS_ITS | Encounter Summary ---
Author Organization [employer] Address [address] [place] [address] Care Team Providers Care Review Assistant Name Role Phone Edwige Headley MD Primary Care Provider [phone] Reason for Visit * Reason Onset Date Comments Med Refill 01/18/2025 Encounter Details Date Type Department Care Team (Late st Contact Info) Description 01/18/2025 Telephone [facility] MEDICINE [address] [place] [address] Edwige Headley MD [address] [place] [address] Med Refill Social History Tobacco Use Types Packs/Day Years Used Date Smoking Tobacco: Never Depression Answer Date Recorded Patient Health Questionnaire-9 Score 12 01/12/2025 Patient Health Questionnaire-9 Score 12 01/12/2025 Last PHQ-9: Questionnaire Data Not on file 0 01/12/2025 Housing Stability Answer Date Recorded What is [...] Date Recorded Patient Health Questionnaire-2 Score 6 01/12/2025 Internet Access Answer Date Recorded Internet Access [...] encounter Miscellaneous Notes * Telephone Encounter - Diana Butler - 01/18/2025 10:25 AM EDT TC from pt requesting medication refill. Medications needing refill : - traMADol (Ultram) 50 MG tablet To be sent to: - [facility] - [place], [place] - [address] [facility] documented in this encounter Plan of Treatment Upcoming Encounters Date Type Department Care Team ([facility] st Contact Info) Description 02/01/2025 2:00 PM EDT Clinical Support [facility] MED & PEDS [address] [place] [address] Maria Guadalupe Rodríguez RN [address] [place] [address] documented as of this encounter Goals Goal Patient Goal Type Associated Problems Recent Progress Patient-Stated? Author Use the inhalers as prescribed by provider; Flovent HFA scheduled and albuterol as needed General No Marcel Gracia, PharmD Take your medication every day Lifestyle No Marcel Garcia PharmD documented as of this encounter Visit Diagnoses Not on filedocumented in this encounter Additional Health Concerns Assessment Noted Time PHQ-9 Depression Total Score: 12 025 3:39 PM EDT documented as of this encounter Care Teams Review Assistant Relationship Specialty Start Date End Date Edwige Headley MD [address] [place] [address] PCP - General Family Medicine 08/21/22 documented as of this encounter
--- OUTSIDE RECORDS SUMMARY | 2025-01-23 10:23 | XMS_ITS | Encounter Summary ---
Author Organization [employer] Address [address] [place] [address] Care Team Providers Care Sheet Finisher Name Role Phone Edwige Headley MD Primary Care Provider [phone] Reason for Visit * Reason Onset Date Comments Med Refill 01/18/2025 Encounter Details Date Type Department Care Team (Late st Contact Info) Description 01/18/2025 Refill [facility] MED & PEDS [address] [place] [address] Edwige Headley MD [address] [place] [address] Fibromyalgia Social History Tobacco Use Types Packs/Day [...] encounter Miscellaneous Notes * Telephone Encounter - Branden Christianson - 01/18/2025 10:27 AM EDT TC from pt requesting medication refill. Medications needing refill : traMADol (Ultram) 50 MG tablet To be sent to: [facility] - [place], [place] - [address] [place] [address] documented in this encounter Plan of Treatment Upcoming Encounters Date Type Department Care Team ([facility] st Contact Info) Description 02/01/2025 2:00 PM EDT Clinical Support [facility] MED & PEDS [address] [place] [address] Maria Guadalupe Rodríguez RN [address] [place] [address] documented as of this encounter Goals Goal [...] documented as of this encounter Care Teams Sheet Finisher Relationship Specialty Start Date End Date Edwige Headley MD [address] [place] [address] PCP - General Family Medicine 08/21/22 documented as of this encounter
--- OUTSIDE RECORDS SUMMARY | 2025-01-23 10:24 | XMS_ITS | Encounter Summary ---
Author Organization [employer] Address [address] [facility] [address] [place] [address] Care Team Providers Care Swine Genetics Researcher Name Role Phone Edwige Headley MD Primary Care Provider [phone] Reason for Visit * Reason Comments Med Refill Encounter Details Date Type Department Care Team (Late Contact Info) Description 12/04/2022 Refill [facility] MED & PEDS [address] [place] [address] Edwige Headley MD [address] [place] [address] Social History Tobacco Use Types Packs/Day Years [...] Department Care Team (Late Contact Info) Description 02/01/2025 2:00 PM EDT Clinical Support [facility] MED & PEDS [address] [place] [address] Maria Guadalupe Rodríguez AC [address] [place] [address] documented as of this encounter Goals Goal [...] documented as of this encounter Care Teams Swine Genetics Researcher Relationship Specialty Start Date End Date Edwige Headley MD [address] [place] [address] PCP - General Family Medicine 08/21/22 documented as of this encounter
--- OUTSIDE RECORDS SUMMARY | 2025-01-23 10:24 | XMS_ITS | Encounter Summary ---
Author Organization [employer] Address [address] [facility] [address] [place] [address] Care Team Providers Care Floral Specialist Name Role Phone Edwige Headley MD Primary Care Provider [phone] Encounter Details Date Type Department Care Team (Late st Contact Info) Description 08/03/2024 Orders Only [facility] MEDICINE [address] [place] [address] Radha Renee MD [address] [place] [address] Alzheimer's disease, unspecified (CODE) ([facility]) Social History Tobacco Use Types Packs/Day Years [...] Care Team (Late st Contact Info) Description 02/01/2025 2:00 PM EDT Clinical Support [facility] MED & PEDS [address] [place] [address] Maria Guadalupe Rodríguez, RN [address] [place] [address] documented as of this encounter Goals Goal Patient Goal Type Associated Problems Recent Progress Patient-Stated? Author Use the inhalers as prescribed by provider; Flovent HFA scheduled and albuterol as needed General No Marcel Garcia, PharmD Take your medication every day Lifestyle No Marcel Garcia, PharmD documented as of this encounter Visit Diagnoses Diagnosis Alzheimer's disease, unspecified (CODE) ([facility]) documented in this encounter Additional Health Concerns Assessment Noted Time PHQ-9 Depression Total Score: 10 024 12:52 PM EDT documented as of this encounter Care Teams Floral Specialist Relationship Specialty Start Date End Date Edwige Headley MD [address] [place] [address] PCP - General Family Medicine 08/21/22 documented as of this encounter
--- OUTSIDE RECORDS SUMMARY | 2025-01-23 10:24 | XMS_ITS | Encounter Summary ---
Author Organization [employer] Address [address] [facility] [address] [place] [address] Care Team Providers Care Soccer Commentator Name Role Phone Edwige Headley MD Primary Care Provider [phone] Reason for Visit * Reason Comments Med Refill Encounter Details Date Type Department Care Team ([facility] st Contact Info) Description 10/23/2024 Refill [facility] MED & PEDS [address] [place], [place] [phone] Radha Renee MD [address] [place] [address] Social History Tobacco Use Types Packs/Day Years [...] Description 02/01/2025 2:00 PM EDT Clinical Support [facility]S [address] [place] [address] Maria Guadalupe Rodríguez, RN [address] [place] [address] documented as of this encounter Goals Goal [...] documented as of this encounter Care Teams Soccer Commentator Relationship Specialty Start Date End Date Edwige Headley MD [address] [place] [address] PCP - General Family Medicine 08/21/22 documented as of this encounter
--- OUTSIDE RECORDS SUMMARY | 2025-01-23 10:24 | XMS_ITS | Encounter Summary ---
Author Organization [employer] Address [address] [place] [address] Care Team Providers Care Special Services Agent Name Role Phone Edwige Headley MD Primary Care Provider [phone] Reason for Visit * Reason Onset Date Comments Medical Necessity Form 10/20/2024 Encounter Details Date Type Department Care Team ([facility] st Contact Info) Description 10/20/2024 Telephone [facility] MEDICINE [address] [place] [address] Edwige Headley MD [address] [place] [address] Medical Necessity Form Social History Tobacco Use Types Packs/Day Years [...] encounter Miscellaneous Notes * Telephone Encounter - Ilsa Austin RN - 10/20/2024 11:32 AM EDT Medical necessity letter faxed to number provided below. * Telephone Encounter - Gill Helm - 10/20/2024 10:29 AM EDT TC from [facility] with [facility] requesting a medical necessity form regarding a stair lift. She stated that provider agreement is required for processing and requested the form be faxed to [phone]. documented in this encounter Plan of Treatment Upcoming Encounters Date Type Department Care Team ([facility] Contact Info) Description 02/01/2025 2:00 PM EDT Clinical Support [facility] MED & PEDS [address] [place] [address] Maria Guadalupe Rodríguez, RN [address] [place] [address] documented as of this encounter Goals Goal [...] documented as of this encounter Care Teams Special Services Agent Relationship Specialty Start Date End Date Edwige Headley MD [address] [place] [address] PCP - General Family Medicine 08/21/22 documented as of this encounter
--- OUTSIDE RECORDS SUMMARY | 2025-01-23 10:24 | XMS_ITS | Encounter Summary ---
Author Organization [employer] Address [address] [place] [address] Care Team Providers Care Mutual Fund Analyst Name Role Phone Edwige Headley MD Primary Care Provider [phone] Reason for Visit * Reason Onset Date Comments Lab Orders 07/06/2024 Encounter Details Date Type Department Care Team ([facility] st Contact Info) Description 07/06/2024 Telephone [facility] MEDICINE [address] [place] [address] Edwige Headley MD [address] [place] [address] Lab Orders Social History Tobacco Use Types [...] TC x 3 placed to pt via [employer] entry level programmer (Ace ID#[id number]) to inform a tuberculosis lab order was placed by the provider for her to have done at her convenience. Pt verbalized understanding and deniesquestions or concerns at this time. * Telephone Encounter - Mau Overton - 07/06/2024 4:20 PM EST Tc from pt returning call. Pt needs an Optical Brightener Maker Helper. * Telephone Encounter - Zoë Dorantes RN - 07/06/2024 3:33 PM EST TC placed to pt via [employer] entry level programmer (ID#[id number]) to inform a tuberculosis lab order was [...] Description 02/01/2025 2:00 PM EDT Clinical Support [facility] MED & PEDS [address] [place], [place] [phone] Maria Guadalupe Rodríguez, RN [address] [place], [place] documented as of this encounter Goals [...] AM EST) T Spot TB Negative Negative [facility] Comment:A negative test resu [...] as aquantitative test. TS PANEL A 0 [facility] TS PANEL B 0 [facility] Negative Control Passed [facility] Positive Control Passed [facility] Comment:For additional infor nika, please refer tohttp://education.Nascentric.com/faq/UDL343(This link is being provided for informational/educational purposes only.)THIS TEST WAS PERFORMED AT:[facility] [place] [address]FNPMVOHVIRGINIA DAN MD,PHD 07/07/2024 9:23 AM EST 07/07/2024 1:55 PM EST us Edwige Headley MD LAB BLOOD ORDERABLES Final Re sult [facility] [address] [place] [phone] documented in this encounter Visit Diagnoses Diagnosis Encounter for screening for respiratory tuberculosis documented in this encounter Additional Health Concerns Assessment Noted Time PHQ-9 Depression Total Score: 10 06/2 024 12:52 PM EDT documented as of this encounter Care Teams Mutual Fund Analyst Relationship Specialty Start Date End Date Edwige Headley MD [address] [place] [id number] PCP - General Family Medicine 08/21/22 documented as of this encounter
--- OUTSIDE RECORDS SUMMARY | 2025-01-23 10:24 | XMS_ITS | Encounter Summary ---
Author Organization [employer] Address [address] [facility] [address] [place] [address] Care Team Providers Care Clerk Operator Name Role Phone Edwige Headley MD Primary Care Provider [phone] Reason for Visit * Reason Onset Date Comments Med Refill 11/13/2024 Encounter Details Date Type Department Care Team ([facility] st Contact Info) Description 11/13/2024 Telephone [facility] MEDICINE [address] [place] [address] Edwige Headley MD 505 [place] [address] Med Refill Social History Tobacco Use Types [...] * Telephone Encounter - Gill Helm - 11/13/2024 3:47 PM EDT TC from pt requesting medication refill. Medications needing refill : traMADol (Ultram) 50 MG tablet To be sent to: [facility] pharmacy documented in this encounter Plan of Treatment Upcoming Encounters Date Type Department Care Team (Late st Contact Info) Description 02/01/2025 2:00 PM EDT Clinical Support [facility] MED & PEDS [address] [place] [address] Maria Guadalupe Rodríguez, RN 505 [place] [address] documented as of this encounter Goals Goal [...] documented as of this encounter Care Teams Clerk Operator Relationship Specialty Start Date End Date Edwige Headley MD [address] [place] [address] PCP - General Family Medicine 08/21/22 documented as of this encounter
--- OUTSIDE RECORDS SUMMARY | 2025-01-23 10:24 | XMS_ITS | Encounter Summary ---
Author Organization [employer] Address [address] [place] [address] Care Team Providers Care Urban Sociologist Name Role Phone Edwige Headley MD Primary Care Provider [phone] Reason for Visit * Reason Comments Med Refill Encounter Details Date Type Department Care Team ([facility] st Contact Info) Description 08/13/2023 Refill [facility] MED & PEDS [address] [place], [place] [phone] Edwige Headley MD 505 [place] [address] Social History Tobacco Use Types Packs/Day Years [...] Description 02/01/2025 2:00 PM EDT Clinical Support [facility] MED & PEDS [address] [place] [address] Maria Guadalupe Rodríguez, RN 505 [place] [address] documented as of this encounter Goals Goal [...] as of this encounter Care Teams Urban Sociologist Relationship Specialty Start Date End Date Edwige Headley MD 230 [place] [address] PCP - General Family Medicine 08/21/22 documented as of this encounter
--- OUTSIDE RECORDS SUMMARY | 2025-01-23 10:24 | XMS_ITS | Encounter Summary ---
Author Organization [employer] Address [address] [place] [address] Care Team Providers Care Mesh Worker Name Role Phone Edwige Headley MD Primary Care Provider [phone] Reason for Visit * Reason Onset Date Comments Appointment Request 09/05/2024 Encounter Details Date Type Department Care Team ([facility] st Contact Info) Description 09/05/2024 Telephone [facility] MEDICINE [address] [place] [address] Edwige Headley MD 505 [place] [address] Appointment Request Social History Tobacco Use Types [...] Description 02/01/2025 2:00 PM EDT Clinical Support [facility] MED & PEDS 505 [place] [address] Maria Guadalupe Rodríguez, RN 505 [place] [address] documented as of this encounter Goals Goal [...] documented as of this encounter Care Teams Mesh Worker Relationship Specialty Start Date End Date Edwige Headley MD [address] [place] [address] PCP - General Family Medicine 08/21/22 documented as of this encounter
--- OUTSIDE RECORDS SUMMARY | 2025-01-23 10:24 | XMS_ITS | Encounter Summary ---
Author Organization [employer] Address [address] [place] [address] Care Team Providers Care Scada Operator Name Role Phone Edwige Headley MD Primary Care Provider [phone] Reason for Visit * Reason Onset Date Comments Appointment Request 08/17/2024 Encounter Details Date Type Department Care Team ([facility] st Contact Info) Description 08/17/2024 Telephone [facility] MEDICINE [address] [place] [address] Edwige Headley MD 505 [place] [address] Appointment Request Social History Tobacco Use Types [...] Description 02/01/2025 2:00 PM EDT Clinical Support [facility] MED & PEDS 505 [place] [address] Maria Guadalupe Rodríguez, RN 505 [place] [address] documented as of this encounter Goals Goal [...] documented as of this encounter Care Teams Scada Operator Relationship Specialty Start Date End Date Edwige Headley MD [address] [place] [address] PCP - General Family Medicine 08/21/22 documented as of this encounter
--- OUTSIDE RECORDS SUMMARY | 2025-01-23 10:24 | XMS_ITS | Encounter Summary ---
Author Organization [employer] Address [address] [place] [address] Care Team Providers Care Skeiner Name Role Phone Edwige Headley MD Primary Care Provider [phone] Encounter Details Date Type Department Care Team ([facility] st Contact Info) Description 10/22/2022 Telephone [facility] MED & PEDS [address] [place], [place] [phone] Edwige Headley MD [address] [place] [address] Social History Tobacco Use Types Packs/Day Years [...] a call in regards to message above. (French speaker) * Telephone Encounter - Inez Martinez - 10/22/2022 3:31 PM EDT TC from pt requesting help to schedule her gastro appt . Please call to clarify . documented in this encounter Plan of Treatment Upcoming Encounters Date Type Department Care Team (Late st Contact Info) Description 02/01/2025 2:00 PM EDT Clinical Support [facility] MED & PEDS [address] [place] [address] Maria Guadalupe Rodríguez, RN 505 [place] [address] documented as of this encounter Goals Goal [...] documented as of this encounter Care Teams Skeiner Relationship Specialty Start Date End Date Edwige Headley MD [address] [place] [address] PCP - General Family Medicine 08/21/22 documented as of this encounter
--- OUTSIDE RECORDS SUMMARY | 2025-01-23 10:24 | XMS_ITS | Encounter Summary ---
Author Organization [employer] Address [address] [place] [address] Care Team Providers Care Architectural Design Lecturer Name Role Phone Edwige Headley MD Primary Care Provider [phone] Reason for Visit * Reason Onset Date Comments Appointment Request 04/06/2024 Encounter Details Date Type Department Care Team ([facility] st Contact Info) Description 04/06/2024 Telephone [facility] MEDICINE [address] [place] [address] Edwige Headley MD [address] [place] [address] Appointment Request Social History Tobacco Use Types [...] somewhere else. Contac pt to r/s at [phone] documented in this encounter Plan of Treatment Upcoming Encounters Date Type Department Care Team (Late st Contact Info) Description 02/01/2025 2:00 PM EDT Clinical Support [facility] MED & PEDS [address] [place] [address] Maria Guadalupe Rodríguez, AC [address] [place], [place] documented as of this encounter Goals [...] documented as of this encounter Care Teams Architectural Design Lecturer Relationship Specialty Start Date End Date Edwige Headley MD 230 [place] [address] PCP - General Family Medicine 08/21/22 documented as of this encounter
--- OUTSIDE RECORDS SUMMARY | 2025-01-23 10:24 | XMS_ITS | Encounter Summary ---
Author Organization [employer] Address [address] [facility] 7 [place] [address] Care Team Providers Care Bush And Vine Farmer Fruit Crops Name Role Phone Edwieg Headley MD Primary Care Provider [phone] Reason for Visit * Reason Comments Med Refill Encounter Details Date Type Department Care Team ([facility] st Contact Info) Description 01/15/2025 Refill [facility] MED & PEDS [address] [place], [place] [phone] Radha Renee MD [address] [place] [address] Social History Tobacco Use Types Packs/Day Years [...] Description 02/01/2025 2:00 PM EDT Clinical Support [facility] MED & PEDS [address] [place] [address] Maria Guadalupe Rodríguez, RN [address] [place] [address] documented as of this encounter Goals Goal Patient Goal Type Associated Problems Recent Progress Patient-Stated? Author Use the inhalers as prescribed by provider; Flovent HFA scheduled and albuterol as needed General No Marecl Garcia, PharmD Take your medication every day Lifestyle No Marcel Garcia PharmD documented as of this encounter Visit Diagnoses Not on filedocumented in this encounter Additional Health Concerns Assessment Noted Time PHQ-9 Depression Total Score: 12 025 3:39 PM EDT documented as of this encounter Care Teams Bush And Vine Farmer Fruit Crops Relationship Specialty Start Date End Date Edwige Headley MD 230 [place] [address] PCP - General Family Medicine 08/21/22 documented as of this encounter
--- OUTSIDE RECORDS SUMMARY | 2025-01-23 10:24 | XMS_ITS | Encounter Summary ---
Author Organization [employer] Address [address] [place] [address] Care Team Providers Care Regulatory Compliance Coordinator Name Role Phone Edwige Headley MD Primary Care Provider [phone] Reason for Visit * Reason Comments Med Refill Encounter Details Date Type Department Care Team ([facility] st Contact Info) Description 10/16/2023 Refill [facility] MED & PEDS [address] [place], [place] [phone] Edwige Headley MD 505 [place] [address] Social History Tobacco Use Types Packs/Day Years [...] [facility] MED & PEDS [address] [place] [address] Maria Guadalupe Rodríguez, RN [address] [place] [address] documented as of this encounter Goals Goal [...] documented as of this encounter Care Teams Regulatory Compliance Coordinator Relationship Specialty Start Date End Date Edwige Headley MD 230 [place] [address] PCP - General Family Medicine 08/21/22 documented as of this encounter
--- OUTSIDE RECORDS SUMMARY | 2025-01-23 10:24 | XMS_ITS | Clinical Summary ---
Author Organization [employer] Address [address] [facility] 7t [place] [address] Care Team Providers Care Smoke Tester Name Role Phone Edwige Headley MD Primary Care Provider [phone] Allergies Active Allergy Reactions Criticality Noted Date [...] each 023 Active Lancets (OneTouch Delica Plus [id number]) misc 1 Units in the morning. Please [...] 2 times daily. 30 g 023 Active albuterol 108 (90 Base) MCG/ACT inhalerIndicati ons:Moderate persistent asthma with acute exacerbation Inhale 2 puffs every 4 (four) hours if needed for wheezing. 18 g 5 Active albuterol (2.5 MG/3ML) 0.083% nebulizer solutionIndicat ions:Moderate persistent asthma with acute exacerbation Take 3 mL (2.5 mg) by nebulization every 4 (four) hours if needed for wheezing. 75 mL 3 Active D3 Super Strength 50 MCG (2000 UT) capsule TAKE 1 CAPSULE BY MOUTH EVERY DAY FOR 3 MONTHS Active levalbuterol (Xopenex) 1.25 MG/3ML nebulizer solution INHALE 1 AMPULE USING A NEBULIZER EVERY 4 TO 6 HOURS NEEDED SHORTNESS OF BREATH OR FOR WHEEZING Active Trelegy Ellipta 200-62.5-25 MCG/ACT aerosol powder Inhale 1 puff Once per day. Active Diclofenac Sodium 1 % gel APPLY 2 GRAMS TOPICALLY TO AFFECTED AREA(S) THREE TIMES DAILY DIRECTED 350 g 1 Active lidocaine (Lidoderm) 5 % patch APPLY 1 PATCH TOPICALLY LEAVE ON FOR 12 HOURS AND OFF FOR 12 HOURS DIRECTED BY 30 patch 5 Active amLODIPine (Norvasc) 5 MG tabletIndicatio ns:Raynaud's phenomenon without gangrene Take 1 tablet (5 mg) by mouth Once per day. 30 tablet 11 025 2025 Active gabapentin (Neurontin) 300 MG capsule TAKE 1 CAPSULE BY MOUTH THREE TIMES DAILY 90 capsule Active losartan (Cozaar) 25 MG tablet TAKE [...] MOUTH TWICE DAILY 60 capsule 1 Active Diclofenac Sodium 1 % gelIndications: Acute left-sided low back pain without sciatica APPLY 2 GRAMS TOPICALLY TO AFFECTED AREA(S) THREE TIMES DAILY 100 g 2 025 Active famotidine (Pepcid) 40 MG tablet TAKE 1 TABLET BY MOUTH AT BEDTIME 90 tablet 1 Active [employer] GroupTouch Ultra Test test strip USE DIRECTED TO TEST BLOOD SUGAR THREE TIMES DAILY 100 strip 11 Active sucralfate (Carafate) 1 GM/10ML suspension TAKE 10 ML BY MOUTH EVERY 8 HOURS NEEDED WITH FOOD 900 mL Active estradiol (Estrace) 0.1 MG/GM vaginal cream Insert 2 g into the vagina Once per day. 42.5 g 025 Active Multiple Vitamin (Multivitamin) tablet Take 1 tablet by mouth in the morning. 90 tablet 1 025 Active rosuvastatin (Crestor) 20 MG tablet Take 1 tablet (20 mg) by mouth at bedtime. 90 tablet 1 09/03/2 025 Active metFORMIN (Glucophage) 500 MG tablet Take 1 tablet (500 mg) by mouth 3 times daily. 270 tablet 1 Active montelukast (Singulair) 10 MG tablet Take 1 tablet (10 mg) by mouth at bedtime. 90 tablet 1 Active calcium carbonate 1500 (600 Ca) MG tablet Take 1 tablet (1,500 mg) by mouth with breakfast and with evening meal. 180 tablet 1 Active traMADol (Ultram) 50 MG tabletIndicatio ns:Fibromyalgia Take 1 tablet (50 mg) by mouth if needed in the morning and at bedtime for severe pain for up to 28 days. 56 tablet 025 2024 Active estradiol (Estrace) 0.1 MG/GM vaginal cream Insert 1 g into the vagina in the morning. 42.5 g 023 2024 Discontinued(R eorder (will not trigger notification to Pharmacy)) glucose blood test strip Use as directed 3 times daily 100 each 11 024 2024 Discontinued calcium carbonate 1500 (600 Ca) MG tablet TAKE 1 TABLET BY MOUTH TWICE DAILY IN THE MORNING AND IN THE EVENING WITH FOOD 180 tablet 1 025 2024 Discontinued(R eorder (will not trigger notification to Pharmacy)) metFORMIN (Glucophage) 500 MG tablet TAKE 1 TABLET BY MOUTH THREE TIMES DAILY IN THE MORNING, AT NOON, AND IN THE EVENING 270 tablet 1 025 2024 Discontinued(R eorder (will not trigger notification to Pharmacy)) montelukast (Singulair) 10 MG tablet TAKE 1 TABLET BY MOUTH AT BEDTIME 90 tablet 1 025 2024 Discontinued(R eorder (will not trigger notification to Pharmacy)) Multiple Vitamin (Multivitamin) tablet TAKE 1 TABLET BY MOUTH EVERY MORNING 90 tablet 1 025 2024 Discontinued(R eorder (will not trigger notification to Pharmacy)) rosuvastatin (Crestor) 20 MG tablet TAKE 1 TABLET BY MOUTH AT BEDTIME 90 tablet 1 025 2024 Discontinued(R eorder (will not trigger notification to Pharmacy)) sucralfate (Carafate) 1 GM/10ML suspension TAKE 10 ML BY MOUTH EVERY 8 HOURS NEEDED WITH FOOD 900 mL 1 025 2024 Discontinued(R eorder (will not trigger notification to Pharmacy)) traMADol (Ultram) 50 MG tabletIndicatio ns:Fibromyalgia Take 1 tablet (50 mg) by mouth if needed in the morning and at bedtime for severe pain for up to 28 days. 56 tablet 025 2024 Discontinued(R eorder (will not trigger notification to Pharmacy)) Active Problems Problem Noted Date Diagnosed Date Iliotibial band syndrome, left 01/12/2025 Atrophic vaginitis 01/12/2025 Impaired mobility and activities of daily living [...] Trelegy , which was prescribed by a commutator inspector. Oxygen saturation appears stable at rest, but there is a need to assess for desaturation with ambulation. Plan: - Continue Trelegy 262.5/25 as prescribed by commutator inspector - Assess oxygen saturation with ambulation - Consider low-dose chronic steroids (to be discussed with commutator inspector) - Follow up with commutator inspector on the of the current month Bilateral [...] swallow test came back normal. Referred to pad hand Assessment & Plan (07/20/2023 9:51 PM EST): [...] be prescribed steroids. Recommended patient to call Javascript Software Engineer to schedule an appointment to get further [...] Center 10/18/2023 3:30 PM Edwige Headley MD [facility] Assessment & Plan (03/19/2023 3:58 PM [...] and daughter. PLAN: 1. Follow up with [facility]: Not recommended for follow-up 2. Patient goal is to be able to manage her symptoms without medication. 3. Behavioral Recommendations a. Referral to Ind. therapy b. Practice of Coping skills for Anxiety c. Contact this junior underwriter for support as needed Encounters Date Type Department Care Team Description 01/18/2025 Refill [facility] [address] [place] [address] Edwige Headley MD Fibromyalgia 01/18/[address] [facility] [address] [place] [address] Edwige Headley MD Med Refill 01/17/2025 Refill [facility] [address] [place] [address] Radha Renee MD 01/16/[address] [facility] [address] [place] [address] Edwige Headley MD 01/15/2025 Refill [facility] [address] [place] [address] Radha Renee MD 01/12/2025 3:15 PM EDT Office Visit [facility] [address] [place] [address] Edwige Headley MD Iliotibial band syndrome, left (Primary Dx); Atrophic vaginitis 01/12/2025 Travel 01/11/2025 Telephone [facility] [address] [place] [address] Edwige Headley MD Chart Prep 01/05/[address] [facility] [address] [place] [phone] Edwige Headley MD Pre-visit Planning (SDOH screening completed on 09/19/24 ) 12/25/2024 Refill [facility] [address] [place] [address] Robert High MD 12/25/[address] [facility] [address] [place] [address] Edwige Headley MD 12/21/[address] [facility] [address] [place] [phone] Edwige Headley MD Fibromyalgia (Primary Dx) 12/19/2024 Refill [facility] [address] [place] [address] Maryuri Miller FNP 11/30/2024 9:15 AM EDT Office Visit [facility] [address] [place] [address] Radha Renee MD Acute left-sided low back pain without sciatica (Primary Dx); Diabetes mellitus due to underlying condition with hyperglycemia, without long-term current use of insulin ([facility]) 11/30/2024 Travel 11/28/2024 Refill [facility] [address] [place] [address] Edwige Headley MD Fibromyalgia 11/28/2024 Telephone [facility] [address] [place] [address] Edwige Headley MD Nurse Triage 11/23/2024 11:00 AM EDT Clinical Support [facility] [address] [place] [address] Maria Guadalupe Rodríguez RN Fibromyalgia 11/23/2024 Refill [facility] [address] [place] [address] Maria Guadalupe Rodríguez RN 11/23/2024 Travel 11/16/[address] [facility] [address] [place] [address] Radha Renee MD Alzheimer's disease, unspecified (CODE) ([facility]) 11/13/[address] [facility] [address] [place] [address] Edwige Headley MD Med Refill 11/13/[address] [facility] [address] [place] [address] Edwige Headley MD requesting call back 11/07/[address] [facility] [address] [place], [place] [phone] Edwige Headley MD Fibromyalgia 10/23/[address] [facility] [address] [place] [address] Edwige Headley MD Form status request 10/23/[address] [facility] [address] [place], [place] [phone] Radha Renee MD from Last 3 Months Immunizations Immunization Administration [...] Sign Reading Time Taken Comments Blood Pressure 130/74 01/12/2025 3:21 PM EDT Pulse 78 01/12/2025 3:21 PM EDT Temperature 36.4 C (97.6 F) 01/12/2025 3:21 PM EDT Respiratory Rate 18 01/12/2025 3:21 PM EDT Oxygen Saturation 97% 01/12/2025 3:21 PM EDT Inhaled Oxygen Concentration - - Weight 54.3 kg (119 lb 9.6 oz) 01/12/2025 3:21 P M EDT Height 152.4 cm (5') 01/12/2025 3:21 PM EDT Body Mass Index 23.36 01/12/2025 3:21 PM EDT Plan of Treatment Upcoming Encounters Date Type Department Care Team ([facility] st Contact Info) Description 02/01/2025 2:00 PM EDT Clinical Support [facility] [address] [facility] [place] [address] Maria Guadalupe Rodríguez, AC [address] [place] [phone] Health Maintenance Due Date Last Done Comments Eye Exam 1955 Lipid Panel 08/29/2024 08/30/2023, 08/21/2022 COVID-19 Vaccine ( season) 2025 07/20/2023 Influenza Vaccine (#1) 2025 , 07/20/2023, 01/02/2022 Diabetes: Hemoglobin A1C 03/30/2025 025, 05/30/2024, 08/30/2023, Additional history exists Diabetes: Foot Exam 06/19/2025 06/19/2024, 06/19/2024, 06/19/2024, Additional history exists Depression Monitoring 07/14/2025 01/12/2025, 025 Diabetes: Urine Protein Screening 07/18/2025 07/18/2024, 08/21/2022 SDOH Screening 09/19/2025 09/19/2024 Alcohol/Substance Use Screening 01/12/2026 01/12/2025 Tobacco Screening 01/12/2026 01/12/2025 DTaP/Tdap/Td Vaccines (2 - Td or Tdap) [...] hyperglycemia, without long-term current use of insulin ([facility]) POCT SENAIT-14 URINE DRUG SCREEN Routine 11/23/2024 12:02 PM EDT Fibromyalgia POCT GLYCATED HEMOGLOBIN, TOTAL Routine 09/27/2024 3:04 PM EDT Diabetes mellitus due to underlying condition with hyperglycemia, without long-term current use of insulin ([facility]) ALBUMIN, RANDOM URINE W/CREATININE Routine 07/18/2024 9:57 AM EST Type 2 diabetes mellitus with hyperglycemia, without long-term current use of insulin ([facility]) HEPATITIS C AB W/REFL TO HCV RNA, QN, PCR Routine 07/07/2024 9:23 AM EST Chronic diastolic heart failure ([facility]) LIPID PANEL, STANDARD Routine 08/30/2023 10:36 AM EDT from Last 3 Months or Most Recently Relevant to Health Maintenance Results * POCT Glucose (11/30/2024 9:44 AM EDT) Glucose Blood, POC 134 60 - 200 mg/dL QC Media Lot # [id number] Lot# Expiration Date Blood Capillary blood specimen / Unknown 11/30/2024 9:44 AM EDT Radha Renee MD POINT OF CARE TEST ENTER/ED IT ORDERABLES Final Result * (ABNORMAL) POCT SENAIT-14 Urine Drug Screen (11/23/2024 12:02 PM EDT) THC Negative Negative Cocaine Screen, Urine Negative [...] procedure / Unknown 11/23/2024 12:02 PM EDT Edwige Headley MD POINT OF CARE TEST ENTER/EDIT ORDERABLES Final Result * (ABNORMAL) POCT HGB A1C (09/27/2024 3:04 PM EDT) Hemoglobin A1C 6.2(A) 4.0 - 6.0 % QC Media Lot # [id number] Lot# Expiration Date 122 Blood 09/27/2024 3:04 PM EDT Edwige Headley MD POINT OF CARE TEST ENTER/EDIT ORDERABLES Final Result * Albumin, Random Urine W/Creatinine (07/18/2024 9:57 AM EST) Creatinine, Urine 47.58 mg/dL [facility] Microalbumin Urine 13.0 mg/L [facility] Microalbum Creatinine Ratio Ur 27.3 <30 ug/mg cr [facility] Comment:Albumin/Creatinine R at Reference Ranges: Normal: < 30 ug/mg creatinine Microalbuminuria: 30 - 300 ug/mg creatinineClinical Albuminuria: > 300 ug/mg creatinine Urine (Urine, Random) 07/18/2024 9:57 AM EST 07/18/2024 2:15 PM EST Radha Renee MD LAB URINE ORDERABLES Final Result Performing Organization Address City/[facility]/ZIP Co de Phone Number [facility] [address] [place] [address] [phone] * Hepatitis C Antibody with Reflex to HCV, RNA, Quantitative, Real-Time PCR (07/07/2024 9:23 AM EST) Hepatitis C Antibody Nonreactive Nonreactive [facility] Comment:Antibodies to HCV no t detected; does not exclude early acuteHCV infection. Blood Venous blood specimen / Unknown 07/07/2024 9:23 AM EST 07/07/2024 1:55 PM EST us Radha Renee MD LAB BLOOD ORDERABLES Final Result Performing Organization Address [facility] Co de Phone Number [facility] [address] [place] [phone] * Lipid Panel, Standard (08/30/2023 10:36 AM EDT) Triglycerides 39 <150 mg/dL [facility] Comment:Desirable Triglyceri de: less than 150 mg/dLBorderline High Triglyceride 150-199 mg/dLHigh Triglyceride: 200-499 mg/dLVery High Triglyceride: greater than or equal to 5OO mg/dL Cholesterol 116 <200 mg/dL [facility] Comment:Desirable Cholestero l: less than 200 mg/dLBorderline High Cholesterol: 200-239 mg/dLHigh Cholesterol: greater than 239 mg/dL LDL Cholesterol Calculated 35 <100 mg/dL [facility] Comment:Desirable LDL: less than 100 mg/dLNear Optimal/Above Optimal LDL: 110- 129 mg/dLBorderline High LDL: 130-159 mg/dLHigh LDL: 160-189 mg/dLVery High LDL: greater than or equal to 190 mg/dL HDL Cholesterol 74 >40 mg/dL [facility] Comment:Desirable HDL: great er than 40 mg/dL Note: This HDL assay may give artificially low results in patients with liver disease. 08/30/2023 10:3 6 AM EDT 08/30/2023 10:41 AM EDT us Generic External Data Provider LAB BLOOD ORDERAB LES Final Result [facility] [address] [place] [address] [phone] from Last 3 Months or Most Recently Relevant to Health Maintenance Insurance [facility] Care Teams Smoke Tester Relationship Specialty Start Date End Date Edwige Headley MD [address] [place] [address] PCP - General Family Medicine 08/21/22
--- OUTSIDE RECORDS SUMMARY | 2025-01-23 10:24 | XMS_ITS | Encounter Summary ---
Author Organization [employer] Address [address] [facility] [address] [place] [address] Care Team Providers Care Armorer Technician Name Role Phone Edwige Headley MD Primary Care Provider [phone] Reason for Visit * Reason Onset Date Comments Hospital Follow-up 05/25/2024 Encounter Details Date Type Department Care Team ([facility] st Contact Info) Description 05/25/2024 Telephone [facility] [address] [place] [address] Edwige Headley MD [address] [place] [phone] Hospital Follow-up Social History Tobacco Use Types [...] from pt requesting a HDF appt. Hospital: [facility] Date of admission: 05/16/2024 Discharge date: 2024 Diagnosed: Discuss with pt. *Send message to [facility] Clinical Care Coordinators documented in this encounter Plan of Treatment Upcoming Encounters Date Type Department Care Team (Late st Contact Info) Description 02/01/2025 2:00 PM EDT Clinical Support [facility] [address] [place] [address] Maria Guadalupe Rodríguez, RN [address] [place] [address] documented as of this encounter Goals Goal [...] documented as of this encounter Care Teams Armorer Technician Relationship Specialty Start Date End Date Edwige Headley MD [address] [place] [address] PCP - General Family Medicine 08/21/22 documented as of this encounter
--- OUTSIDE RECORDS SUMMARY | 2025-01-23 10:24 | XMS_ITS | Encounter Summary ---
Author Organization [employer] Address [address] [facility] 7 [place] [address] Care Team Providers Care Global Commodity Manager Name Role Phone Edwige Headley MD Primary Care Provider [phone] Reason for Visit * Reason Comments Med Refill Encounter Details Date Type Department Care Team ([facility] st Contact Info) Description 01/17/2025 Refill [facility] PEDS [address] [place] [address] Radha Renee MD [address] [place] [address] Social History Tobacco Use Types Packs/Day Years [...] Description 02/01/2025 2:00 PM EDT Clinical Support [facility] MED & PEDS [address] [place] [address] Maria Guadalupe Rodríguez, RN [address] [place] [address] documented as of this encounter Goals Goal [...] documented as of this encounter Care Teams Global Commodity Manager Relationship Specialty Start Date End Date Edwige Headley MD [address] [place] [address] PCP - General Family Medicine 08/21/22 documented as of this encounter
--- OUTSIDE RECORDS SUMMARY | 2025-01-23 10:24 | XMS_ITS | Encounter Summary ---
Author Organization [employer] Address [address] [facility] [address] [place] [address] Care Team Providers Care Movie Producer Name Role Phone Edwige Headley MD Primary Care Provider Encounter Details Date Type Department Care Team ([facility] Contact Info) Description 11/03/2022 Abstract [employer] [address] [place] [address] Edwige Headley MD [address] [place] [address] Social History Tobacco Use Types Packs/Day Years [...] Upcoming Encounters Date Type Department Care Team ([facility] Contact Info) Description 02/01/2025 2:00 PM EDT Clinical Support [facility] PEDS [address] [place], [place] [phone] Maria Guadalupe Rodríguez RN [address] [place] [address] documented as of this encounter Goals Goal [...] documented as of this encounter Care Teams Movie Producer Relationship Specialty Start Date End Date Edwige Headley MD [address] [place] [address] PCP - General Family Medicine 08/21/22 documented as of this encounter
--- OUTSIDE RECORDS SUMMARY | 2025-01-23 10:24 | XMS_ITS | Encounter Summary ---
Author Organization [employer] Address [address] [facility] [address] [place] [address] Care Team Providers Care Therapist Respiratory Name Role Phone Edwige Headley MD Primary Care Provider [phone] Reason for Visit * Reason Onset Date Comments PT-1 03/28/2024 Encounter Details Date Type Department Care Team ([facility] st Contact Info) Description 03/28/2024 Telephone [facility] MED[facility] [address] [place] [address] Edwige Headley MD [address] [place] [address] PT-1 Social History Tobacco Use Types Packs/Day [...] encounter Miscellaneous Notes * Telephone Encounter - Tiburcioethel Thibodeaux - 03/28/2024 1:54 PM EST Patient calling requesting PT1 Home Address verified: Y/N: Yes Provider name or facility name: [facility] Facility Address: [address] [place] [address] Escort needed: Y/N: Yes Do you have a wheelchair: Y/N: No If yes- Manual or electric: (Uses Walker) Visits: Once a month documented in this encounter Plan of Treatment Upcoming Encounters Date Type Department Care Team (Late st Contact Info) Description 02/01/2025 2:00 PM EDT Clinical Support [facility]S [address] [place] [address] Maria Guadalupe Rodríguez RN [address] [place] [address] documented as of this encounter Goals Goal [...] documented as of this encounter Care Teams Therapist Respiratory Relationship Specialty Start Date End Date Edwige Headley MD [address] [place] [address] PCP - General Family Medicine 08/21/22 documented as of this encounter
== END 2025-01-23 09:39 | disposition home or self-care (01) ==
LOC: HO.HOS 09:02
PROVIDERS: PCP Family Medicine
DX: M65.322 Trigger finger, left index finger (principal); M65.342 Trigger finger, left ring finger
CPT/HCPCS: 99024

== ENCOUNTER → 2025-01-23 09:02 | Outpatient (BNVA) | payer OTHER, SELFPAY | PROVIDERS: PCP Family Medicine | DX: M65.322 Trigger finger, left index finger (principal); M65.342 Trigger finger, left ring finger; Z47.89 Encounter for other orthopedic aftercare | CPT/HCPCS: 99212 ==

== ENCOUNTER 2025-01-30 13:25 | Outpatient (AMB) | payer OTHER, MEDICAID, SELFPAY ==
[2025-01-30 13:30] VITALS: BP 100/72; PULSE 73; BMI 23.5
--- NOTE | 2025-01-30 13:30 | A.OFFVIS_ITS ---
Vital Signs 01/30/25 13:30 Height 5 ft Weight 120 lb 5.958 oz BMI 23.5 BP 100/72 Blood Pressure Location Lt brachial Position Sitting Pulse 73 Pulse Source Monitor Intake Visit Reasons: 6 mth f/up Clothes Drier Assembler Required: No Clothes Drier Assembler Services: Clothes Drier Assembler Offered & Declined Undercover Cop: Undercover Cop Present Accompanied by: Daughter Allergies pregabalin (From Lyrica) Allergy (Intermediate, Verified 01/30/25 13:37) Rash Medication List - Last Reconciled 01/30/25 by SOBIA Salazar albuterol sulfate 90 mcg/actuation 2 puffs inhalation Q4H PRN amlodipine 5 mg PO DAILY aspirin 81 mg PO DAILY hhscewhqsg-gbqzwhmpoachh-rvqk 50-325-40 mg tabs PO calcium carbonate 600 mg PO BID celecoxib 100 mg PO BID cholecalciferol (vitamin D3) (Vitamin D3) 50 mcg PO DAILY cyclosporine 0.05% (Restasis) drps ophthalmic (eye) DAILY PRN estradiol 0.01%(0.1mg/gram) 1 appl vaginal MOWEFR famotidine 20 mg PO BID 90 days aeuphejgfrz-chmnqknps-dvqgxasl 200-62.5-25 mcg (Trelegy Ellipta) 1 ea PO DAILY gabapentin 300 mg PO TID hydrocortisone 2.5% (Anusol-HC) 1 appl ID BEDTIME PRN 14 days levalbuterol HCl 1.25 mg (3 mL) inhalation Q4-6H PRN lifitegrast 5% (Xiidra) drps ophthalmic (eye) DAILY losartan 25 mg PO DAILY memantine 5 mg PO BID metformin 500 mg PO TID montelukast 10 mg PO BEDTIME multivitamin 1 tab PO DAILY polyethylene glycol 3350 (Miralax) 17 grams PO DAILY PRN 90 days rosuvastatin 20 mg PO BEDTIME sennosides (senna) 8.6 mg PO DAILY tramadol 50 mg PO BID PRN HPI HPI 6 mth f/up: Details: Ed is a 79-year-old female with past medical history of hypertension, diabetes, hyperlipidemia, diastolic heart failure, nonobstructive CAD, chronic shortness of breath with COPD who presents for follow-up. Today she states that she continues to frequently feel shortness of breath and chest tightness. Daughter is present and tells me that mother has not been using her albuterol inhaler at all for no clear reason. Explained that the albuterol is a rescue inhaler and can be used to relieve her breathing if it is feeling unlabored. She is following with pulmonology. She denies any new types of chest discomfort. No PND, orthopnea or edema. No heart palpitations, lightheadedness, presyncope syncope. She is mostly sedentary and ambulates only short distances with a walker. Recently had surgery on her left hand to release trigger finger. Usually attends a day program for activities but she is currently not going while her hand heels. Taking meds as directed. [facility] Medical History Atherosclerotic cardiovascular disease PVD (peripheral vascular disease) Breast nodule Urinary incontinence Osteoporosis Dementia in Alzheimer's disease Chronic diastolic (congestive) heart failure Hypertension Vitamin D deficiency Carpal tunnel syndrome Cervical disc disorder CKD (chronic kidney disease), stage II TONY (generalized anxiety disorder) Vertigo CAD (coronary artery disease) GERD (gastroesophageal reflux disease) Migraine Diabetes mellitus Asthma Surgical History H/O hand surgery Hx of cardiac catheterization History of hernia repair History of left inguinal hernia repair History of right inguinal hernia repair History of cholecystectomy Hx of colonoscopy History of esophagogastroduodenoscopy (EGD) Family History Mother Heart problem Arthritis Social History Household Members: Spouse, Family and Children Housing: House Alcohol intake: never Patient Tobacco Use Status: Never used Tobacco Second Hand Smoke Exposure: No service: No Review of Systems Const All systems reviewed & are unremarkable except as noted in HPI and below ENT Denies dizziness Card Details: chest tightness with sob Denies chest pain, Denies chest pain at rest, Denies chest pain with activity, Denies rapid heart rate, Denies pedal edema, Denies edema, Denies leg edema, Denies lightheadedness, Denies palpitations, Reports dyspnea, Reports dyspnea on exertion and Denies orthopnea Resp Denies cough, Reports dyspnea and Reports dyspnea on exertion GI Denies hematochezia and Denies change in stool character Musc Denies abnormal gait, Denies limited range of motion, Denies muscle cramps, Denies muscle weakness, Denies numbness, Denies radiating pain into limb, Denies stiffness and Denies tingling Neuro Denies abnormal gait, Denies dizziness, Denies numbness and Denies tingling Endo Denies palpitations Physical Exam Vital Signs: Last Vital Signs Pulse 73 01/30/25 13:30 BP 100/72 01/30/25 13:30 BMI result Body Mass Index 23.5 Const General: cooperative, healthy appearing, comfortable and no acute distress Orientation/consciousness: patient oriented x3 Neck Neck: Yes normal visual inspection Resp Effort & Inspection: normal respiratory effort Auscultation: clear to auscultation bilaterally, no crackles, no rales, no rhonchi and no wheezes Cardio Jugular venous distension: no JVD Rate: regular rate Rhythm: regular rhythm Heart sounds: S1 normal heart sound present, S2 normal heart sound present, no murmurs and no rubs Skin General skin exam: no rashes or lesions noted Neuro General: patient oriented x3 Extrem General: Yes normal to inspection, No no pedal edema and No calf tenderness Psych Appearance: grossly normal Mental Status: mental status grossly normal Speech and movement: Normal speech and movement present Office Procedures EKG Details: Today, read by me, sinus rhythm left anterior facicular block, rate 73, Qtc 427ms [id number], Complete Assessment & Plan Assessment & Plan (1) Atherosclerotic cardiovascular disease: Code(s): I25.10 - Atherosclerotic heart disease of moapa coronary artery without angina pectoris Category: Medical Plan: Cardiac evaluation for symptom of shortness of breath with activity and chest tightness which seems to be more pulmonary related. Notes indicate nonobstructive coronary artery disease based on cardiac catheterization 2020 ( [place]). An echocardiogram was done on 11/12/2022 showing EF 65-70%, grade 1 diastolic dysfunction, no valve abnormalities. Holter monitor done 11/12/2022 showing sinus rhythm with average heart rate 72, rare PACs, her symptoms correlated with sinus rhythm. She did have a CT scan of the chest done 06/15/2023 which notes no coronary calcification. A nuclear stress test done on 03/13/2024 showed normal myocardial perfusion imaging. A prior pulmonary function test did show mild COPD and she does follow with pulmonology. Previously she reported her symptoms improved with the use of inhalers. Now daughter tells me she is not using albuterol and she was instructed to use PRN for her symptoms. She may still have mild nonobstructive coronary artery disease so will continue with risk factor modification. Continue use of aspirin, rosuvastatin, amlodipine, losartan. Signs and symptoms of angina reviewed with her. Cardiology follow-up in 1 year sooner if needed. (2) Chest pain: Code(s): R07.9 - Chest pain, unspecified Category: Medical Plan: As above. Respiratory related chest tightness (3) Shortness of breath: Code(s): R06.02 - Shortness of breath Category: Medical Plan: Being followed by pulmonology for COPD (4) Hypertension: Code(s): I10 - Essential (primary) hypertension Category: Medical Qualifiers: Hypertension type: primary hypertension Qualified Code(s): I10 - Essential (primary) hypertension Plan: Blood pressure goal less than 130/80. Well controlled at present time. No med changes made. (5) Chronic diastolic (congestive) heart failure: Code(s): I50.32 - Chronic diastolic (congestive) heart failure Category: Medical Plan: No clinical signs of heart failure on examination. Signs and symptoms of heart failure reviewed with her. Plan I discussed with the patient the importance of using albuterol as prescribed to manage her shortness of breath and chest tightness. We reviewed her recent stress test results, which showed normal cardiac blood flow, indicating her symptoms are likely not cardiac-related. I advised her to follow up with her cow washer and to continue her maintenance inhaler regimen. Informed her she likely has mild cholesterol buildup in her coronary arteries and she should notify this office if she has new types of chest discomfort or worsening of her breathing. Cardiac risk factor modification discussed. Patient Instructions: - Use albuterol inhaler as prescribed for breathing difficulties. - Follow up with your cow washer. - increase physical activities as tolerated to maintain strength. - notify this office if you have new types of chest discomfort or increasing shortness of breath. -cardiology follow-up in 1 year, sooner if needed Patient was informed and verbally consented to the use of an ambient scribe for clinic note documentation during this visit. Visit time spent on chart review, interview, assessment, orders, documentation. Coding Level of Care Code Est Pt Level 4 (94598) Complex EM visit Add On G2211 Diagnoses Atherosclerotic cardiovascular disease I25.10 Chest pain R07.9 Shortness of breath R06.02 Primary hypertension I10 Hypertension type: primary hypertension Chronic diastolic (congestive) heart failure I50.32 CPT Codes EKG - CPT: 93708-[id number], Complete ([id number]) Time Spent (min) 28
--- OUTSIDE RECORDS SUMMARY | 2025-01-30 17:20 | XMS_ITS | Encounter Summary ---
Author Organization [employer] Address [address] [place] [address] Care Team Providers Care Special Education Paraeducator Name Role Phone Edwige Headley MD Primary Care Provider [phone] Reason for Visit * Reason Onset Date Comments Med Refill 01/18/2025 Encounter Details Date Type Department Care Team (Late st Contact Info) Description 01/18/2025 Telephone [facility] [facility] MED[facility]INE [address] [place] [address] Edwige Headley MD [address] [place] [address] Med Refill Social History Tobacco Use Types [...] MG tablet To be sent to: - [facility] - [place], [place] - [address] [facility] documented in this encounter Plan of Treatment Upcoming Encounters Date Type Department Care Team ([facility] st Contact Info) Description 02/21/2025 11:00 AM EDT Clinical Support [facility] MED & PEDS [address] [place] [address] Maria Guadalupe Rodríguez RN [address] [place] [address] documented as of this encounter Goals Goal [...] as of this encounter Care Teams Special Education Paraeducator Relationship Specialty Start Date End Date Edwige Headley MD [address] [place] [phone] PCP - General Family Medicine 08/21/22 documented as of this encounter
--- OUTSIDE RECORDS SUMMARY | 2025-01-30 17:21 | XMS_ITS | Encounter Summary ---
Author Organization [employer] Address [address] [place] [address] Care Team Providers Care Tube Bender Name Role Phone Edwige Headley MD Primary Care Provider [phone] Reason for Visit * Reason Comments Med Refill Encounter Details Date Type Department Care Team ([facility] st Contact Info) Description 08/13/2023 Refill [facility]S [address] [place], [place] [phone] Edwige Headley MD [address] [place] [address] Social History Tobacco Use Types Packs/Day Years [...] Care Team (Late st Contact Info) Description 02/21/2025 11:00 AM EDT Clinical Support [facility] MED & PEDS [address] [place] [address] Maria Guadalupe Rodríguez, RN [address] [place] [address] documented as of this encounter Goals Goal [...] documented as of this encounter Care Teams Tube Bender Relationship Specialty Start Date End Date Edwige Headley MD [address] [place] [address] PCP - General Family Medicine 08/21/22 documented as of this encounter
--- OUTSIDE RECORDS SUMMARY | 2025-01-30 17:21 | XMS_ITS | Clinical Summary ---
Author Organization [employer] Address [address] [facility] 7[address] [place] [address] Care Team Providers Care Store Loss Prevention Manager Name Role Phone Edwige Headley MD Primary Care Provider [phone] Allergies Active Allergy Reactions Criticality Noted Date [...] each 023 Active Lancets (OneTouch Delica Plus [id number]) misc 1 Units in the morning. Please [...] MOUTH AT BEDTIME 90 tablet 1 Active IncreaseCardTouch Ultra Test test strip USE DIRECTED TO [...] by mouth at bedtime. 90 tablet 1 025 Active metFORMIN (Glucophage) 500 [...] eorder (will not trigger notification to Pharmacy)) calcium carbonate 1500 (600 Ca) MG tablet [...] Trelegy , which was prescribed by a home health occupational therapist. Oxygen saturation appears stable at rest, but there is a need to assess for desaturation with ambulation. Plan: - Continue Trelegy 262.5/25 as prescribed by home health occupational therapist - Assess oxygen saturation with ambulation - Consider low-dose chronic steroids (to be discussed with home health occupational therapist) - Follow up with home health occupational therapist on the of the current month Bilateral [...] swallow test came back normal. Referred to sand technologist Assessment & Plan (07/20/2023 9:51 PM EST): [...] be prescribed steroids. Recommended patient to call Technical Service Rep to schedule an appointment to get further [...] Center 10/18/2023 3:30 PM Edwige Headley MD [facility] Assessment & Plan (03/19/2023 3:58 PM [...] and daughter. PLAN: 1. Follow up with [facility]: Not recommended for follow-up 2. Patient goal is to be able to manage her symptoms without medication. 3. Behavioral Recommendations a. Referral to Ind. therapy b. Practice of Coping skills for Anxiety c. Contact this appeals writer for support as needed Encounters Date Type Department Care Team Description 01/30/2025 Telephone [facility] MED & PEDS [address] [place] [phone] Maria Guadalupe Rodríguez RN 01/24/2025 Telephone [facility] MEDICINE [address] [place] [phone] Edwige Headley MD Appointment Request 01/18/2025 Refill [facility] & PEDS [address] [place] [address] Edwige Headley MD Fibromyalgia 01/18/2025 Telephone [facility] MEDICINE [address] [place] [phone] Edwige Headley MD Med Refill 01/17/2025 Refill [facility] MED & PEDS [address] [place] [address] Radha Renee MD 01/16/2025 Refill [facility]INE [address] [place] [phone] Edwige Headley MD 01/15/2025 Refill [facility] MED & PEDS [address] [place] [address] Radha Renee MD 01/12/2025 3:15 PM EDT Office Visit [facility] MED & PEDS [address] [place] [address] Edwige Headley MD Iliotibial band syndrome, left (Primary Dx); Atrophic vaginitis 01/12/2025 Travel 01/11/2025 Telephone [facility] [address] [place] [address] Edwige Headley MD Chart Prep 01/05/2025 Patient Outreach [facility] [address] [place] [phone] Edwige Headley MD Pre-visit Planning (SDPR screening completed on 09/19/24 ) 12/25/2024 Refill [facility] MED & PEDS [address] [place], [place] [phone] Robert High MD 12/25/2024 Refill [facility] [address] [place] [phone] Edwige Headley MD 12/21/2024 Refill [facility] [address] [place] [phone] Edwige Headley MD Fibromyalgia (Primary Dx) 12/19/2024 Refill [facility] MED & PEDS [address] [place], [place] [phone] Maryuri Miller FNP 11/30/2024 9:15 AM EDT Office Visit [facility] PEDS [address] [place] [address] Radha Renee MD Acute left-sided low back pain without sciatica (Primary Dx); Diabetes mellitus due to underlying condition with hyperglycemia, without long-term current use of insulin ([facility]) 11/30/2024 Travel 11/28/2024 Refill [facility] MED & PEDS [address] [place] [address] Edwige Headley MD Fibromyalgia 11/28/2024 Telephone [facility] PED[facility] [address] [place] [address] Edwige Headley MD Nurse Triage 11/23/2024 11:00 AM EDT Clinical Support [facility] [address] [place] [address] Maria Guadalupe Rodríguez RN Fibromyalgia 11/23/2024 Refill [facility] [address] [place] [address] Maria Guadalupe Rodríguez RN 11/23/2024 Travel 11/16/2024 Refill [facility] [address] [place] [address] Radha Renee MD Alzheimer's disease, unspecified (CODE) ([facility]) 11/13/2024 Telephone [facility] [address] [place], [place] [phone] Edwige Headley MD Med Refill 11/13/2024 Telephone [facility] [address] [place], [place] [phone] Edwige Headley MD requesting call back 11/07/2024 Refill [facility] PEDS [address] [place], [place] [phone] Edwige Headley MD Fibromyalgia from Last 3 [...] 11:00 AM EDT Clinical Support [facility] PEDS [address] [place] [address] Maria Guadalupe Rodríguez, RN [address] [place] [address] Health Maintenance Due Date Last Done Comments Eye Exam 1955 Lipid Panel 08/29/2024 08/30/2023, 08/21/2022 COVID-19 Vaccine ( season) 2025 07/20/2023 Influenza Vaccine (#1) 2025 4, 07/20/2023, 01/02/2022 Diabetes: Hemoglobin A1C 03/30/2025 025, [...] long-term current use of insulin (CMS/HCC) POCT SENAIT-14 URINE DRUG SCREEN Routine 11/23/2024 12:02 PM EDT Fibromyalgia POCT GLYCATED HEMOGLOBIN, TOTAL Routine 09/27/2024 3:04 PM EDT Diabetes mellitus due to underlying condition with hyperglycemia, without long-term current use of insulin (CMS/HCC) ALBUMIN, RANDOM URINE W/CREATININE Routine 07/18/2024 9:57 AM EST Type 2 diabetes mellitus with hyperglycemia, without long-term current use of insulin (CMS/[facility]) HEPATITIS C AB W/REFL TO HCV RNA, QN, PCR Routine 07/07/2024 9:23 AM EST Chronic diastolic heart failure ([facility]) LIPID PANEL, STANDARD Routine 08/30/2023 10:36 AM [...] Media Lot # [id number] Lot# Expiration Date Blood 09/27/2024 3:04 PM EDT Edwige Headley MD POINT OF CARE TEST ENTER/EDIT ORDERABLES Final Result * Albumin, Random Urine W/Creatinine (07/18/2024 9:57 AM EST) Creatinine, Urine 47.58 mg/dL [facility] Microalbumin Urine 13.0 mg/L [facility] Microalbum Creatinine Ratio Ur 27.3 <30 ug/mg cr [facility] Comment:Albumin/Creatinine R atio Reference Ranges: Normal: < 30 ug/mg creatinine Microalbuminuria: 30 - 300 ug/mg creatinineClinical Albuminuria: > 300 ug/mg creatinine Urine (Urine, Random) 07/18/2024 9:57 AM EST 07/18/2024 2:15 PM EST Radha Renee MD LAB URINE ORDERABLES Final Result [facility] [address] [place] [phone] * Hepatitis C Antibody with Reflex to HCV, RNA, Quantitative, Real-Time PCR (07/07/2024 9:23 AM EST) Hepatitis C Antibody Nonreactive Nonreactive [facility] Comment:Antibodies to HCV no t detected; does not exclude early acuteHCV infection. Blood Venous blood specimen / Unknown 07/07/2024 9:23 AM EST 07/07/2024 1:55 PM EST us Radha Renee MD LAB BLOOD ORDERABLES Final Result Performing Organization Address [facility] [[email or web address]] Co de Phone Number [facility] [address] [place] [phone] * Lipid Panel, Standard (08/30/2023 10:36 AM EDT) Triglycerides 39 <150 mg/dL [facility] Comment:Desirable Triglyceri de: less than 150 mg/dLBorderline High Triglyceride 150-199 mg/dLHigh Triglyceride: 200-499 mg/dLVery High Triglyceride: greater than or equal to 5OO mg/dL Cholesterol 116 <200 mg/dL [facility] Comment:Desirable Cholestero l: less than 200 mg/dLBorderline High Cholesterol: 200-239 mg/dLHigh Cholesterol: greater than 239 mg/dL LDL Cholesterol Calculated 35 <100 mg/dL [facility] Comment:Desirable LDL: less than 100 mg/dLNear Optimal/Above Optimal LDL: 110- 129 mg/dLBorderline High LDL: 130-159 mg/dLHigh LDL: 160-189 mg/dLVery High LDL: greater than or equal to 190 mg/dL HDL Cholesterol 74 >40 mg/dL [facility] Comment:Desirable HDL: great er than 40 mg/dL Note: This HDL assay may give artificially low results in patients with liver disease. 08/30/2023 10:3 6 AM EDT 08/30/2023 10:41 AM EDT us Generic External Data Provider LAB BLOOD ORDERAB LES Final Result Performing Organization Address [facility]/ZIP Co de Phone Number [facility] [address] [place] [phone] from Last 3 Months or Most Recently Relevant to Health Maintenance Insurance [facility] [place]ACE[place] Garcia [id number] Care Teams Store Loss Prevention Manager Relationship Specialty Start Date End Date Edwige Headley MD [address] [place] [address] PCP - General Family Medicine 08/21/22
--- OUTSIDE RECORDS SUMMARY | 2025-01-30 17:21 | XMS_ITS | Encounter Summary ---
Author Organization [employer] Address [address] [facility] [place] [address] Care Team Providers Care Asphalt Paver Operator Name Role Phone Edwige Headley MD Primary Care Provider [phone] Reason for Visit * Reason Onset Date Comments Appointment Request 01/24/2025 Encounter Details Date Type Department Care Team ([facility] st Contact Info) Description 01/24/2025 Telephone [facility] MEDICINE [address] [place] [address] Edwige Headley MD [address] [place] [address] Appointment Request Social History Tobacco Use Types [...] encounter Miscellaneous Notes * Telephone Encounter - Vanita Azul - 01/30/2025 10:01 AM EDT Tc from pt requesting a call back regarding prior message. Contact pt at [phone] * Telephone Encounter - Tiburcio Thibodeaux - 01/24/2025 9:21 AM EDT Tc from pt requesting to reschedule TECHNOLOGY SALES SPECIALIST visit from 02/01. Please contact pt at [phone]. (Ukrainian Speaker) documented in this encounter Plan of Treatment Upcoming Encounters Date Type Department Care Team ([facility] st Contact Info) Description 02/21/2025 11:00 AM EDT Clinical Support [facility] MED & PEDS [address] [place] [address] Maria Guadalupe Rodríguez, AC [address] [place] [address] documented as of this encounter Goals Goal [...] documented as of this encounter Care Teams Asphalt Paver Operator Relationship Specialty Start Date End Date Edwige Headley MD [address] [place] [address] PCP - General Family Medicine 08/21/22 documented as of this encounter
--- OUTSIDE RECORDS SUMMARY | 2025-01-30 17:21 | XMS_ITS | Encounter Summary ---
Author Organization [employer] Address [address] [facility] [address] 7t [place] [address] Care Team Providers Care Housekeeping Cleaner Name Role Phone Edwige Headley MD Primary Care Provider [phone] Reason for Visit * Reason Onset Date Comments Appointment Request 04/06/2024 Encounter Details Date Type Department Care Team ([facility] st Contact Info) Description 04/06/2024 Telephone [facility] MEDICINE [address] [place] [address] Edwige Headley MD 505 [place] [address] Appointment Request Social History Tobacco Use Types [...] somewhere else. Contac pt to r/s at [phone] documented in this encounter Plan of Treatment Upcoming Encounters Date Type Department Care Team (Late st Contact Info) Description 02/21/2025 11:00 AM EDT Clinical Support [facility] MED & PEDS 505 [place] [address] Maria Guadalupe Rodríguez, AC 505 [place] [address] documented as of this encounter Goals Goal [...] documented as of this encounter Care Teams Housekeeping Cleaner Relationship Specialty Start Date End Date Edwige Headley MD 230 [place] [address] PCP - General Family Medicine 08/21/22 documented as of this encounter
--- OUTSIDE RECORDS SUMMARY | 2025-01-30 17:21 | XMS_ITS | Encounter Summary ---
Author Organization [employer] Address [address] [facility] [facility] [address] 7t [place] [address] Care Team Providers Care Pie Filling Mixer Name Role Phone Edwige Headley MD Primary Care Provider [phone] Reason for Visit * Reason Onset Date Comments Appointment Request 08/17/2024 Encounter Details Date Type Department Care Team ([facility] st Contact Info) Description 08/17/2024 Telephone [facility] MEDICINE 230 [place] [address] Edwige Headley MD 505 [place] [address] Appointment Request Social History Tobacco Use Types [...] Description 02/21/2025 11:00 AM EDT Clinical Support [facility] MED & PEDS 505 [place] [address] Maria Guadalupe Rodríguez, RN 505 [place] [address] documented as of this encounter Goals Goal [...] documented as of this encounter Care Teams Pie Filling Mixer Relationship Specialty Start Date End Date Edwige Headley MD 230 [place] [address] PCP - General Family Medicine 08/21/22 documented as of this encounter
--- OUTSIDE RECORDS SUMMARY | 2025-01-30 17:21 | XMS_ITS | Encounter Summary ---
Author Organization [employer] Address [address] 7t [place] [address] Care Team Providers Care Police Sergeant Name Role Phone Edwige Headley MD Primary Care Provider [phone] Encounter Details Date Type Department Care Team ([facility] st Contact Info) Description 01/30/2025 Telephone [facility] CHC MED & PEDS 505 [place] [address] Maria Guadalupe Rodríguez, RN 505 [place] [address] Social History Tobacco Use Types Packs/Day Years [...] the past 12 months, has t he [employer], gas, oil or water [employer] threatened to shut off services in your [...] Encounter - Maria Guadalupe Rodríguez RN - 01/30/2025 2:20 PM EDT TC back to pt via S ID# [id number]. AMBULANCE DISPATCHER appt scheduled for 02/21/25 @ 11am. documented in this encounter Plan of Treatment Upcoming Encounters Date Type Department Care Team (Late st Contact Info) Description 02/21/2025 11:00 AM EDT Clinical Support [facility] MED & PEDS 505 [place] [address] Maria Guadalupe Rodríguez, RN 505 [place] [address] documented as of this encounter Goals Goal [...] as of this encounter Care Teams Police Sergeant Relationship Specialty Start Date End Date Edwige Headley MD 230 [place] [address] PCP - General Family Medicine 08/21/22 documented as of this encounter
--- OUTSIDE RECORDS SUMMARY | 2025-01-30 17:21 | XMS_ITS | Encounter Summary ---
Author Organization [employer] Address [address] 7t [place] [address] Care Team Providers Care Welder Fitter Apprentice Name Role Phone Edwige Headley MD Primary Care Provider [phone] Reason for Visit * Reason Onset Date Comments Hospital Follow-up 05/25/2024 Encounter Details Date Type Department Care Team ([facility] st Contact Info) Description 05/25/2024 Telephone [facility] MEDICINE 230 [place] [address] Edwige Headley MD [address] [place] [address] Hospital Follow-up Social History Tobacco Use Types [...] from pt requesting a HDF appt. Hospital: [facility] Date of admission: 05/16/2024 Discharge date: 2024 Diagnosed: Discuss with pt. *Send message to [place] Clinical Care Coordinators documented in this encounter Plan of Treatment Upcoming Encounters Date Type Department Care Team (Late st Contact Info) Description 02/21/2025 11:00 AM EDT Clinical Support [facility] CHC MED & PEDS 505 [place] [address] Maria Guadalupe Rodríguez, RN 505 [place] [address] documented as of this encounter Goals Goal [...] documented as of this encounter Care Teams Welder Fitter Apprentice Relationship Specialty Start Date End Date Edwige Headley MD 230 [place] [address] PCP - General Family Medicine 08/21/22 documented as of this encounter
--- OUTSIDE RECORDS SUMMARY | 2025-01-30 17:21 | XMS_ITS | Encounter Summary ---
Author Organization [employer] Address [address] [facility] 7 [place] [address] Care Team Providers Care Waiter/Waitress Tourist Class Name Role Phone Edwige Headley MD Primary Care Provider [phone] Reason for Visit * Reason Comments Med Refill Encounter Details Date Type Department Care Team ([facility] st Contact Info) Description 10/23/2024 Refill [facility] CHC MED & PEDS 505 [place], [place] [phone] Radha Renee MD 505 [place] [address] Social History Tobacco Use Types Packs/Day Years [...] Description 02/21/2025 11:00 AM EDT Clinical Support [facility] MED & PEDS 505 [place] [address] Maria Guadalupe Rodríguez, RN 505 [place] [address] documented as of this encounter Goals Goal [...] documented as of this encounter Care Teams Waiter/Waitress Tourist Class Relationship Specialty Start Date End Date Edwige Headley MD 230 [place] [address] PCP - General Family Medicine 08/21/22 documented as of this encounter
--- OUTSIDE RECORDS SUMMARY | 2025-01-30 17:21 | XMS_ITS | Encounter Summary ---
Author Organization [employer] Address [address] [facility] [address] 7t [place] [address] Care Team Providers Care Profiling Machine Set Up Operator Tool Name Role Phone Edwige Headley MD Primary Care Provider [phone] Reason for Visit * Reason Onset Date Comments Lab Orders 07/06/2024 Encounter Details Date Type Department Care Team ([facility] st Contact Info) Description 07/06/2024 Telephone [facility] MEDICINE 230 [place] [address] Edwige Headley MD 505 [place] [address] Lab Orders Social History Tobacco Use Types [...] TC x 3 placed to pt via [employer] retail marketing specialist (Ace ID#[id number]) to inform a tuberculosis lab order was placed by the provider for her to have done at her convenience. Pt verbalized understanding and deniesquestions or concerns at this time. * Telephone Encounter - Mau Overton - 07/06/2024 4:20 PM EST Tc from pt returning call. Pt needs an Shoe Dresser. * Telephone Encounter - Zoë Dorantes RN - 07/06/2024 3:33 PM EST TC placed to pt via [employer] retail marketing specialist (ID#[id number]) to inform a tuberculosis lab order was [...] Description 02/21/2025 11:00 AM EDT Clinical Support [facility] MED & PEDS 505 [place], [place] [phone] Maria Guadalupe Rodríguez, RN 505 [place], [place] documented as of this encounter Goals [...] AM EST) T Spot TB Negative Negative [facility] Comment:A negative test resu lt [...] as aquantitative test. TS PANEL A 0 [facility] TS PANEL B 0 [facility] Negative Control Passed [facility] Positive Control Passed [facility] Comment:For additional infor nika, please refer [email or web address]/faq/WLO451(This link is being provided for informational/educational purposes only.)THIS TEST WAS PERFORMED AT:[facility] [place] [address]GZFKDNAVIRGINIA DAN MD,PHD 07/07/2024 9:23 AM EST 07/07/2024 1:55 PM EST us Edwige Headley MD LAB BLOOD ORDERABLES Final Re sult [facility] [address] [place] [phone] documented in this encounter Visit Diagnoses Diagnosis Encounter for screening for respiratory tuberculosis documented in this encounter Additional Health Concerns Assessment Noted Time PHQ-9 Depression Total Score: 10 06/2 024 12:52 PM EDT documented as of this encounter Care Teams Profiling Machine Set Up Operator Tool Relationship Specialty Start Date End Date Edwige Headley MD [address] [place] [address] PCP - General Family Medicine 08/21/22 documented as of this encounter
--- OUTSIDE RECORDS SUMMARY | 2025-01-30 17:21 | XMS_ITS | Encounter Summary ---
Author Organization [employer] Address [address] [facility] 7 [place] [address] Care Team Providers Care Department Of Sociology Chair Name Role Phone Edwige Headley MD Primary Care Provider [phone] Reason for Visit * Reason Comments Med Refill Encounter Details Date Type Department Care Team ([facility] st Contact Info) Description 01/15/2025 Refill [facility] CHC MED & PEDS 505 [place], [place] [phone] Radha Renee MD 505 [place] [address] Social History Tobacco Use Types Packs/Day Years [...] [facility] MED [facility]EDS 505 [place] [address] Maria Guadalupe Rodríguez, RN 505 [place] [address] documented as of this encounter Goals Goal [...] documented as of this encounter Care Teams Department Of Sociology Chair Relationship Specialty Start Date End Date Edwige Headley MD 230 [place] [address] PCP - General Family Medicine 08/21/22 documented as of this encounter
--- OUTSIDE RECORDS SUMMARY | 2025-01-30 17:21 | XMS_ITS | Encounter Summary ---
Author Organization [employer] Address [address] 7t [place] [address] Care Team Providers Care Ramp Manager Name Role Phone Edwige Headley MD Primary Care Provider [phone] Reason for Visit * Reason Comments Med Refill Encounter Details Date Type Department Care Team ([facility] st Contact Info) Description 10/16/2023 Refill [facility] CHC MED & PEDS 505 [place], [place] [phone] Edwige Headley MD 505 [place] [address] Social History Tobacco Use Types Packs/Day Years [...] 11:00 AM EDT Clinical Support [facility] MED & PEDS 505 [place] [address] Maria Guadalupe Rodríguez, RN 505 [place] [address] documented as of this encounter Goals Goal [...] documented as of this encounter Care Teams Ramp Manager Relationship Specialty Start Date End Date Edwige Headley MD 230 [place] [address] PCP - General Family Medicine 08/21/22 documented as of this encounter
--- OUTSIDE RECORDS SUMMARY | 2025-01-30 17:21 | XMS_ITS | Encounter Summary ---
Author Organization [employer] Address [address] [facility] 7t [place] [address] Care Team Providers Care Pipe Liner Name Role Phone Edwige Headely MD Primary Care Provider [phone] Encounter Details Date Type Department Care Team (Late st Contact Info) Description 08/03/2024 Orders Only [facility] MEDICINE 230 [place] [address] Radha Renee MD 505 [place] [address] Alzheimer's disease, unspecified (CODE) ([facility]) Social History Tobacco Use Types [...] Description 02/21/2025 11:00 AM EDT Clinical Support [facility] CHC MED & PEDS 505 [place] [address] Maria Guadalupe Rodríguez, AC 505 [place] [address] documented as of this encounter Goals Goal Patient Goal Type Associated Problems Recent Progress Patient-Stated? Author Use the inhalers as prescribed by provider; Flovent HFA scheduled and albuterol as needed General No Marcel Garcia, PharmD Take your medication every day Lifestyle No Marcel Garcia, PharmD documented as of this encounter Visit Diagnoses Diagnosis Alzheimer's disease, unspecified (CODE) ([facility]) documented in this encounter Additional Health Concerns Assessment Noted Time PHQ-9 Depression Total Score: 10 024 12:52 PM EDT documented as of this encounter Care Teams Pipe Liner Relationship Specialty Start Date End Date Edwige Headley MD [address] [place] [address] PCP - General Family Medicine 08/21/22 documented as of this encounter
--- OUTSIDE RECORDS SUMMARY | 2025-01-30 17:21 | XMS_ITS | Encounter Summary ---
Author Organization [employer] Address [address] 7t [place] [address] Care Team Providers Care Traffic Reporter Name Role Phone Edwige Headley MD Primary Care Provider [phone] Reason for Visit * Reason Onset Date Comments PT-1 03/28/2024 Encounter Details Date Type Department Care Team ([facility] st Contact Info) Description 03/28/2024 Telephone [facility] MEDICINE 230 [place] [address] Edwige Headley MD 505 [place] [address] PT-1 Social History Tobacco Use Types Packs/Day [...] Y/N: Yes Provider name or facility name: [facility] Address: [address] [place] [address] Escort needed: Y/N: Yes Do you have a wheelchair: Y/N: No If yes- Manual or electric: (Uses Walker) Visits: Once a month documented in this encounter Plan of Treatment Upcoming Encounters Date Type Department Care Team (Late st Contact Info) Description 02/21/2025 11:00 AM EDT Clinical Support [facility] CHC MED & PEDS 505 [place] [address] Maria Guadalupe Rodríguez RN 505 [place] [address] documented as of this encounter Goals Goal [...] documented as of this encounter Care Teams Traffic Reporter Relationship Specialty Start Date End Date Edwige Headley MD 230 [place] [address] PCP - General Family Medicine 08/21/22 documented as of this encounter
--- OUTSIDE RECORDS SUMMARY | 2025-01-30 17:21 | XMS_ITS | Encounter Summary ---
Author Organization [employer] Address [address] [facility] [address] [facility] [address] 7t [place] [address] Care Team Providers Care Carriage Operator Name Role Phone Edwige Headley MD Primary Care Provider [phone] Reason for Visit * Reason Onset Date Comments Med Refill 11/13/2024 Encounter Details Date Type Department Care Team ([facility] st Contact Info) Description 11/13/2024 Telephone [facility] MEDICINE 230 [place] [address] Edwige Headley MD 505 [place] [address] Med Refill Social History Tobacco Use Types [...] 50 MG tablet To be sent to: [facility] pharmacy documented in this encounter Plan of Treatment Upcoming Encounters Date Type Department Care Team (Late st Contact Info) Description 02/21/2025 11:00 AM EDT Clinical Support [facility] CH[facility] MED & PEDS 505 [place] [address] Maria Guadalupe Rodríguez, RN 505 [place] [address] documented as of this encounter Goals Goal [...] documented as of this encounter Care Teams Carriage Operator Relationship Specialty Start Date End Date Edwige Headley MD [address] [place] [address] PCP - General Family Medicine 08/21/22 documented as of this encounter
--- OUTSIDE RECORDS SUMMARY | 2025-01-30 17:21 | XMS_ITS | Encounter Summary ---
Author Organization [employer] Address [address] [facility] [facility] [address] [facility] [address] 7t [place] [address] Care Team Providers Care Senior Informatica Developer Name Role Phone Edwige Headley MD Primary Care Provider [phone] Reason for Visit * Reason Onset Date Comments Appointment Request 09/05/2024 Encounter Details Date Type Department Care Team ([facility] st Contact Info) Description 09/05/2024 Telephone [facility] MEDICINE 230 [place] [address] Edwige Headley MD 505 [place] [address] Appointment Request Social History Tobacco Use Types [...] Description 02/21/2025 11:00 AM EDT Clinical Support [facility] MED & PEDS 505 [place] [address] Maria Guadalupe Rodríguez, RN 505 [place] [address] documented as of this encounter Goals Goal [...] as of this encounter Care Teams Senior Informatica Developer Relationship Specialty Start Date End Date Edwige Headley MD 230 [place] [address] PCP - General Family Medicine 08/21/22 documented as of this encounter
--- OUTSIDE RECORDS SUMMARY | 2025-01-30 17:21 | XMS_ITS | Encounter Summary ---
Author Organization [employer] Address [address] [facility] 7t [place] [address] Care Team Providers Care Instructional Technology Specialist Name Role Phone Ediwge Headley MD Primary Care Provider [phone] Reason for Visit * Reason Comments Med Refill Encounter Details Date Type Department Care Team (Late Contact Info) Description 12/04/2022 Refill [facility] CHC MED & PEDS 505 [place] [address] Edwige Headley MD 505 [place] [address] Social History Tobacco Use Types Packs/Day Years [...] Department Care Team (Late Contact Info) Description 02/21/2025 11:00 AM EDT Clinical Support [facility] CHC MED & PEDS 505 [place] [address] Maria Guadalupe Rodríguez AC 505 [place] [address] documented as of this encounter Goals Goal [...] as of this encounter Care Teams Instructional Technology Specialist Relationship Specialty Start Date End Date Edwige Headley MD 230 [place] [address] PCP - General Family Medicine 08/21/22 documented as of this encounter
--- OUTSIDE RECORDS SUMMARY | 2025-01-30 17:21 | XMS_ITS | Encounter Summary ---
Author Organization [employer] Address [address] [facility] [address] [address] 7t [place] [address] Care Team Providers Care Medical Parasitologist Name Role Phone Edwige Headley MD Primary Care Provider [phone] Encounter Details Date Type Department Care Team ([facility] st Contact Info) Description 10/22/2022 Telephone [facility] CHC MED & PEDS 505 [place], [place] [phone] Edwige Headley MD 505 [place] [address] Social History Tobacco Use Types Packs/Day Years [...] a call in regards to message above. (Setswana speaker) * Telephone Encounter - Inez Martinez - 10/22/2022 3:31 PM EDT TC from pt requesting help to schedule her gastro appt . Please call to clarify . documented in this encounter Plan of Treatment Upcoming Encounters Date Type Department Care Team (Late st Contact Info) Description 02/21/2025 11:00 AM EDT Clinical Support [facility] MED & PEDS 505 [place] [address] Maria Guadalupe Rodríguez, RN 505 [place] [address] documented as of this encounter Goals Goal [...] as of this encounter Care Teams Medical Parasitologist Relationship Specialty Start Date End Date Edwige Headley MD 230 [place] [address] PCP - General Family Medicine 08/21/22 documented as of this encounter
--- OUTSIDE RECORDS SUMMARY | 2025-01-30 17:21 | XMS_ITS | Encounter Summary ---
Author Organization [employer] Address [address] [facility] 7t [place] [address] Care Team Providers Care Online Content Coordinator Name Role Phone Edwige Headley MD Primary Care Provider [phone] Encounter Details Date Type Department Care Team ([facility] Contact Info) Description 11/03/2022 Abstract [employer] 230 [place] [address] Edwige Headley MD 505 [place] [address] Social History Tobacco Use Types Packs/Day Years [...] Upcoming Encounters Date Type Department Care Team ([facility] Contact Info) Description 02/21/2025 11:00 AM EDT Clinical Support [facility] CHC MED & PEDS 505 [place], [place] [phone] Maria Guadalupe Rodríguez RN 505 [place] [address] documented as of this encounter Goals Goal [...] as of this encounter Care Teams Online Content Coordinator Relationship Specialty Start Date End Date Edwige Headley MD 230 [place] [address] PCP - General Family Medicine 08/21/22 documented as of this encounter
--- OUTSIDE RECORDS SUMMARY | 2025-01-30 17:21 | XMS_ITS | Encounter Summary ---
Author Organization [employer] Address [address] 7[address] [place] [address] Care Team Providers Care Railcar Switcher Name Role Phone Edwige Headley MD Primary Care Provider [phone] Reason for Visit * Reason Onset Date Comments Medical Necessity Form 10/20/2024 Encounter Details Date Type Department Care Team ([facility] st Contact Info) Description 10/20/2024 Telephone [facility] MEDICINE 230 [place] [address] Edwige Headley MD 505 [place] [address] Medical Necessity Form Social History Tobacco Use [...] - 10/20/2024 10:29 AM EDT TC from [facility] with [facility] requesting a medical necessity form regarding a stair lift. She stated that provider agreement is required for processing and requested the form be faxed to [phone]. documented in this encounter Plan of Treatment Upcoming Encounters Date Type Department Care Team ([facility] Contact Info) Description 02/21/2025 11:00 AM EDT Clinical Support [facility] MED & PEDS 505 [place] [address] Maria Guadalupe Rodríguez, RN 505 [place] [address] documented as of this encounter Goals Goal [...] documented as of this encounter Care Teams Railcar Switcher Relationship Specialty Start Date End Date Edwige Headley MD 230 [place] [address] PCP - General Family Medicine 08/21/22 documented as of this encounter
== END 2025-01-30 14:06 | disposition home or self-care (01) ==
LOC: HO.HCS 13:26
PROVIDERS: PCP Family Medicine; Visit Provider Nurse Practitioner Family
DX: I25.10 Atherosclerotic heart disease of native coronary artery without angina pectoris (principal); R07.9 Chest pain, unspecified; R06.02 Shortness of breath; I10 Essential (primary) hypertension; I50.32 Chronic diastolic (congestive) heart failure
CPT/HCPCS: 93010; 99214; G2211

== ENCOUNTER → 2025-01-30 13:25 | Outpatient (BNVA) | payer OTHER, SELFPAY | PROVIDERS: PCP Family Medicine; Visit Provider Nurse Practitioner Family | DX: I25.10 Atherosclerotic heart disease of native coronary artery without angina pectoris (principal); R06.02 Shortness of breath; R07.9 Chest pain, unspecified; I10 Essential (primary) hypertension; I50.32 Chronic diastolic (congestive) heart failure | CPT/HCPCS: 93005; 99212 ==

== ENCOUNTER 2025-01-31 11:39 | Outpatient (AMB) | payer OTHER, SELFPAY ==
--- NOTE | 2025-01-31 11:46 | MHC.OFFVIS ---
Intake Visit Reasons: INJ- RT MF injection Intake Note: Ed is a 79 year old right hand dominant female who presents today for an injection for her right middle finger, trigger finger. Patient states she would like to proceed with her right middle finger injection. She also expresses concern due to her left ring finger not being able to fully bend down accompanied by an increase in pain even after her left ring finger trigger release DOS: 01/08/25. Allergies pregabalin (From Lyrica) Allergy (Intermediate, Verified 01/31/25 11:50) Rash HPI HPI INJ- RT MF injection: Details: Ed is a 79 year old right hand dominant female who presents today for an injection for her right middle finger, trigger finger. Patient states she would like to proceed with her right middle finger injection. She also expresses concern due to her left ring finger not being able to fully bend down accompanied by an increase in pain even after her left ring finger trigger release DOS: 01/08/25. PFSH Medical History Atherosclerotic cardiovascular disease PVD (peripheral vascular disease) Breast nodule Urinary incontinence Osteoporosis Dementia in Alzheimer's disease Chronic diastolic (congestive) heart failure Hypertension Vitamin D deficiency Carpal tunnel syndrome Cervical disc disorder CKD (chronic kidney disease), stage II TONY (generalized anxiety disorder) Vertigo CAD (coronary artery disease) GERD (gastroesophageal reflux disease) Migraine Diabetes mellitus Asthma Surgical History H/O hand surgery Hx of cardiac catheterization History of hernia repair History of left inguinal hernia repair History of right inguinal hernia repair History of cholecystectomy Hx of colonoscopy History of esophagogastroduodenoscopy (EGD) Family History Mother Heart problem Arthritis Social History Household Members: Spouse, Family and Children Housing: House Alcohol intake: never Patient Tobacco Use Status: Never used Tobacco Second Hand Smoke Exposure: No service: No Review of Systems Const All systems reviewed & are unremarkable except as noted in HPI and below Physical Exam Extrem Other: Patient is alert, oriented, and in no acute distress. Neuro: Normal sensation of the tips of all digits of the left hand at this time Vascular: Cap refill brisk Pain: Tenderness to palpation of the A1 patricia of right middle finger Minimal tenderness to palpation noted around incision sites over A1 pulleys of left index and ring fingers Discomfort with making a closed fist in the MCP joints ROM: There is a visible and palpable locking and catching of the right middle finger No further visible or palpable locking and catching With encouragement, patient is able to make a closed fist with the left hand Skin: Well approximated and well healing incision sites noted over the A1 pulleys of the left index and ring fingers No lacerations or abrasions. General: No ecchymosis, erythema, or evidence of infection. Psych: Appears grossly normal Affect normal Attitude cooperative Assessment & Plan Assessment & Plan (1) Trigger ring finger of left hand: Code(s): M65.342 - Trigger finger, left ring finger Category: Medical (2) Trigger index finger of left hand: Code(s): M65.322 - Trigger finger, left index finger Category: Medical Plan 1. Right middle finger trigger finger Patient is educated about this condition Patient is educated about the typical treatment course Patient would like to proceed with steroid injection at this time The risks and benefits of a steroid injection including but not limited to risk of damage to blood vessels, nerves, tendons, infection, skin bleaching, failure to improve symptoms, increased pain, and possible need for further injections or other intervention were discussed with the patient and the patient wishes to proceed with the steroid injection. Once consent was obtained, I sterilely prepped the area over the A1 patricia of the flexor tendon sheath of the right middle finger. I then injected the flexor tendon sheath with a combination of 1 mL of dexamethasone (4mg/ml), and 1% lidocaine. The patient tolerated the procedure well with no complications. If the patient continues to have locking and catching 4-6 weeks following this injection, they may call to schedule appointment to discuss alternative treatment options Follow-up prn Orders: Orders OT Evaluation and Treatment 01/31/25 M65.322 - Trigger finger, left index finger, M65.342 - Trigger finger, left ring finger Coding Level of Care Code Est Pt Level 3 (13877) Diagnoses Trigger ring finger of left hand M65.342 Trigger index finger of left hand M65.322
--- OUTSIDE RECORDS SUMMARY | 2025-01-31 15:02 | XMS_ITS | Encounter Summary ---
Author Organization [employer] Address [address] [facility] 7t [place] [address] Care Team Providers Care Cooking Appliance Repair Technician Name Role Phone Edwige Headley MD Primary Care Provider [phone] Encounter Details Date Type Department Care Team ([facility] Contact Info) Description 11/03/2022 Abstract [facility] [employer] [facility] [address] [place] [address] Edwige Headley MD 505 [place] [address] Social History Tobacco Use Types Packs/Day Years [...] Upcoming Encounters Date Type Department Care Team ([facility] Contact Info) Description 02/21/2025 11:00 AM EDT Clinical Support [facility] CHC MED & PEDS [address] [place], [place] [phone] Maria Guadalupe Rodríguez RN 505 [place] [address] documented as of this encounter Goals Goal [...] documented as of this encounter Care Teams Cooking Appliance Repair Technician Relationship Specialty Start Date End Date Edwige Headley MD [address] [place] [address] PCP - General Family Medicine 08/21/22 documented as of this encounter
--- OUTSIDE RECORDS SUMMARY | 2025-01-31 15:02 | XMS_ITS | Encounter Summary ---
Author Organization [employer] Address [address] [facility] [address] [address] [facility] [address] 7t [place] [address] Care Team Providers Care Power Plant Technician Name Role Phone Edwige Headley MD Primary Care Provider Reason for Visit * Reason Onset Date Comments Appointment Request 08/17/2024 Encounter Details Date Type Department Care Team ([facility] st Contact Info) Description 08/17/2024 Telephone [facility] MEDICINE [address] [place] [address] Edwige Headley MD 505 [place] [address] Appointment Request Social History Tobacco Use Types [...] 02/21/2025 11:00 AM EDT Clinical Support [facility] MED & PEDS 505 [place] [address] Maria Guadalupe Rodríguez, RN 505 [place] [address] documented as of this encounter Goals Goal [...] documented as of this encounter Care Teams Power Plant Technician Relationship Specialty Start Date End Date Edwige Headley MD [address] [place] [address] PCP - General Family Medicine 08/21/22 documented as of this encounter
--- OUTSIDE RECORDS SUMMARY | 2025-01-31 15:02 | XMS_ITS | Encounter Summary ---
Author Organization [employer] Address [address] [facility] 7 [place] [address] Care Team Providers Care Plastic Straightening Roll Operator Name Role Phone Edwige Headley MD Primary Care Provider [phone] Reason for Visit * Reason Comments Med Refill Encounter Details Date Type Department Care Team ([facility] st Contact Info) Description 01/15/2025 Refill [facility] CHC MED & PEDS [address] [place] [address] Radha Renee MD 505 [place] [address] Social History Tobacco Use Types Packs/Day Years [...] Description 02/21/2025 11:00 AM EDT Clinical Support [facility] MED & PEDS 505 [place] [address] Maria Guadalupe Rodríguez, RN 505 [place] [address] documented as of this encounter Goals Goal [...] documented as of this encounter Care Teams Plastic Straightening Roll Operator Relationship Specialty Start Date End Date Edwige Headley MD 230 [place] [address] PCP - General Family Medicine 08/21/22 documented as of this encounter
--- OUTSIDE RECORDS SUMMARY | 2025-01-31 15:02 | XMS_ITS | Encounter Summary ---
Author Organization [employer] Address [address] [facility] [address] [facility] [address] 7[address] [place] [address] Care Team Providers Care Nutrition Consultant Name Role Phone Edwige Headley MD Primary Care Provider [phone] Encounter Details Date Type Department Care Team ([facility] st Contact Info) Description 10/22/2022 Telephone [facility] CHC MED & PEDS [address] [place], [place] [phone] Edwige Headley MD 505 [place] [address] Social History Tobacco Use Types Packs/Day Years [...] a call in regards to message above. (Lithuanian speaker) * Telephone Encounter - Inez Martinez - 10/22/2022 3:31 PM EDT TC from pt requesting help to schedule her gastro appt . Please call to clarify . documented in this encounter Plan of Treatment Upcoming Encounters Date Type Department Care Team (Late st Contact Info) Description 02/21/2025 11:00 AM EDT Clinical Support [facility] MED & PEDS [address] [place] [address] Maria Guadalupe Rodríguez, RN 505 [place] [address] documented as of this encounter Goals Goal [...] documented as of this encounter Care Teams Nutrition Consultant Relationship Specialty Start Date End Date Edwige Headley MD 230 [place] [address] PCP - General Family Medicine 08/21/22 documented as of this encounter
--- OUTSIDE RECORDS SUMMARY | 2025-01-31 15:02 | XMS_ITS | Encounter Summary ---
Author Organization [employer] Address [address] [facility] 7 [place] [address] Care Team Providers Care Income Tax Preparer Name Role Phone Edwige Headley MD Primary Care Provider [phone] Reason for Visit * Reason Comments Med Refill Encounter Details Date Type Department Care Team ([facility] st Contact Info) Description 10/23/2024 Refill [facility] CHC MED & PEDS 505 [place], [place] [phone] Radha Renee MD 505 [place] [address] Social History Tobacco Use Types Packs/Day Years [...] Description 02/21/2025 11:00 AM EDT Clinical Support [facility] MED & PEDS [address] [place] [address] Maria Guadalupe Rodríguez, RN 505 [place] [address] documented as of this encounter Goals Goal [...] documented as of this encounter Care Teams Income Tax Preparer Relationship Specialty Start Date End Date Edwige Headley MD 230 [place] [address] PCP - General Family Medicine 08/21/22 documented as of this encounter
--- OUTSIDE RECORDS SUMMARY | 2025-01-31 15:02 | XMS_ITS | Encounter Summary ---
Author Organization [employer] Address [address] [facility] 7t [place] [address] Care Team Providers Care Bottle House Quality Control Technician Name Role Phone Edwige Headley MD Primary Care Provider [phone] Reason for Visit * Reason Comments Med Refill Encounter Details Date Type Department Care Team (Late Contact Info) Description 12/04/2022 Refill [facility] CHC MED & PEDS [address] [place] [address] Edwige Headley MD 505 [place] [address] Social History Tobacco Use Types Packs/Day Years [...] Description 02/21/2025 11:00 AM EDT Clinical Support [facility] CHC MED & PEDS [address] [place] [address] Maria Guadalupe Rodríguez AC 505 [place] [address] documented as of this encounter Goals Goal [...] documented as of this encounter Care Teams Bottle House Quality Control Technician Relationship Specialty Start Date End Date Edwige Headley MD 230 [place] [address] PCP - General Family Medicine 08/21/22 documented as of this encounter
--- OUTSIDE RECORDS SUMMARY | 2025-01-31 15:02 | XMS_ITS | Clinical Summary ---
Author Organization [employer] Address [address] [facility] 7t [place] [address] Care Team Providers Care Research Mechanic Name Role Phone Edwige Headley MD Primary Care Provider [phone] Allergies Active Allergy Reactions Criticality Noted Date [...] each 023 Active Lancets (OneTouch Delica Plus Pwmtte51C) misc 1 Units in the morning. Please [...] MOUTH AT BEDTIME 90 tablet 1 Active CE2 Carbon CapitalTouch Ultra Test test strip USE DIRECTED TO [...] Trelegy , which was prescribed by a electrical and instrument mechanic. Oxygen saturation appears stable at rest, but there is a need to assess for desaturation with ambulation. Plan: - Continue Trelegy 262.5/25 as prescribed by electrical and instrument mechanic - Assess oxygen saturation with ambulation - Consider low-dose chronic steroids (to be discussed with electrical and instrument mechanic) - Follow up with electrical and instrument mechanic on the of the current month Bilateral [...] test came back normal. Referred to medical coding instructor Assessment & Plan (07/20/2023 9:51 PM EST): [...] be prescribed steroids. Recommended patient to call Dish Machine Operator to schedule an appointment to get [...] Center 10/18/2023 3:30 PM Edwige Headley MD [facility] Assessment & Plan (03/19/2023 3:58 PM EDT): [...] and daughter. PLAN: 1. Follow up with [facility]: Not recommended for follow-up 2. Patient goal is to be able to manage her symptoms without medication. 3. Behavioral Recommendations a. Referral to Ind. therapy b. Practice of Coping skills for Anxiety c. Contact this proposal writer for support as needed Encounters Date Type Department Care Team Description 01/30/2025 Telephone [facility] MED & PEDS [address] [place] [phone] Maria Guadalupe Rodríguez RN 01/24/2025 Telephone [facility] [address] [place] [phone] Edwige Headley MD Appointment Request 01/18/2025 Refill [facility] MED & PEDS [address] [place] [address] Edwige Headley MD Fibromyalgia 01/18/2025 Telephone [facility] [address] [place] [address] Edwige Headley MD Med Refill 01/17/2025 Refill [facility] MED & PEDS [address] [place] [address] Radha Renee MD 01/16/2025 Refill [facility] [address] [place] [address] Edwige Headley MD 01/15/2025 Refill [facility] MED & PEDS [address] [place] [address] Radha Renee MD 01/12/2025 3:15 PM EDT Office Visit [facility] MED & PEDS [address] [place] [address] Edwige Headley MD Iliotibial band syndrome, left (Primary Dx); Atrophic vaginitis 01/12/2025 Travel 01/11/2025 Telephone [facility] MED & PEDS [address] [place] [address] Edwige Headley MD Chart Prep 01/05/2025 Patient Outreach [facility] [address] [place] [phone] Edwige Headley MD Pre-visit Planning (SDMI screening completed on 09/19/24 ) 12/25/2024 Refill [facility] MED & PEDS [address] [place], [place] [phone] Robert High MD 12/25/2024 Refill [facility] [address] [place] [address] Edwige Headley MD 12/21/2024 Refill [facility] [address] [place] [address] Edwige Headley MD Fibromyalgia (Primary Dx) 12/19/2024 Refill [facility] MED & PEDS [address] [place], [place] [phone] Maryuri Miller FNP 11/30/2024 9:15 AM EDT Office Visit [facility] MED & PEDS [address] [place] [address] Radha Renee MD Acute left-sided low back pain without sciatica (Primary Dx); Diabetes mellitus due to underlying condition with hyperglycemia, without long-term current use of insulin ([facility]) 11/30/2024 Travel 11/28/2024 Refill [facility] MED & PEDS [address] [place] [address] Edwige Headley MD Fibromyalgia 11/28/2024 Telephone [facility] MED & PEDS [address] [place] [address] Edwige Headley MD Nurse Triage 11/23/2024 11:00 AM EDT Clinical Support [facility] MED & PEDS [address] [place] [address] Maria Guadalupe Rodríguez RN Fibromyalgia 11/23/2024 Refill [facility] MED & PEDS [address] [place] [address] Maria Guadalupe Rodríguez RN 11/23/2024 Travel 11/16/2024 Refill [facility] [address] [place] [address] Radha Renee MD Alzheimer's disease, unspecified (CODE) ([facility]) 11/13/2024 Telephone [facility] [address] [place], [place] [phone] Edwige Headley MD Med Refill 11/13/2024 Telephone [facility] MED & PEDS [address] [place], [place] [phone] Edwige Headley MD requesting call back 11/07/2024 Refill [facility] MED & PEDS [address] [place], [place] [phone] Edwige Headley MD Fibromyalgia from Last 3 [...] Description 02/21/2025 11:00 AM EDT Clinical Support [facility] MED & PEDS [address] [place] [address] Maria Guadalupe Rodríguez, RN 505 [place] [address] Health Maintenance Due Date Last Done Comments [...] long-term current use of insulin ([facility]) HEPATITIS C AB W/REFL TO HCV RNA, QN, PCR Routine 07/07/2024 9:23 AM EST Chronic diastolic heart failure ([facility]) LIPID PANEL, STANDARD Routine 08/30/2023 10:36 AM [...] 9:57 AM EST) Creatinine, Urine 47.58 mg/dL [facility] Microalbumin Urine 13.0 mg/L [facility] Microalbum Creatinine Ratio Ur 27.3 <30 ug/mg cr [facility] Comment:Albumin/Creatinine R atio Reference Ranges: Normal: < 30 ug/mg creatinine Microalbuminuria: 30 - 300 ug/mg creatinineClinical Albuminuria: > 300 ug/mg creatinine Urine (Urine, Random) 07/18/2024 9:57 AM EST 07/18/2024 2:15 PM EST Radha Renee MD LAB URINE ORDERABLES Final Result [facility] [address] [place] [phone] * Hepatitis C Antibody with Reflex to HCV, RNA, Quantitative, Real-Time PCR (07/07/2024 9:23 AM EST) Hepatitis C Antibody Nonreactive Nonreactive [facility] Comment:Antibodies to HCV no t detected; does not exclude early acuteHCV infection. Blood Venous blood specimen / Unknown 07/07/2024 9:23 AM EST 07/07/2024 1:55 PM EST us Radha Renee MD LAB BLOOD ORDERABLES Final Result Performing Organization Address [facility] Co de Phone Number [facility] [address] [place] [phone] * Lipid Panel, Standard (08/30/2023 10:36 AM EDT) Triglycerides 39 <150 mg/dL [facility] Comment:Desirable Triglyceri de: less than 150 mg/dLBorderline High Triglyceride 150-199 mg/dLHigh Triglyceride: 200-499 mg/dLVery High Triglyceride: greater than or equal to 5OO mg/dL Cholesterol 116 <200 mg/dL [facility] Comment:Desirable Cholestero l: less than 200 mg/dLBorderline High Cholesterol: 200-239 mg/dLHigh Cholesterol: greater than 239 mg/dL LDL Cholesterol Calculated 35 <100 mg/dL [facility] Comment:Desirable LDL: less than 100 mg/dLNear Optimal/Above Optimal LDL: 110- 129 mg/dLBorderline High LDL: 130-159 mg/dLHigh LDL: 160-189 mg/dLVery High LDL: greater than or equal to 190 mg/dL HDL Cholesterol 74 >40 mg/dL [facility] Comment:Desirable HDL: great er than 40 mg/dL Note: This HDL assay may give artificially low results in patients with liver disease. 08/30/2023 10:3 6 AM EDT 08/30/2023 10:41 AM EDT us Generic External Data Provider LAB BLOOD ORDERAB LES Final Result Performing Organization Address [facility]/ZIP Co de Phone Number [facility] [address] [place] [phone] from Last 3 Months or Most Recently Relevant to Health Maintenance [facility] [place]ACE[place] Garcia [id number] Care Teams Research Mechanic Relationship Specialty Start Date End Date Edwige Headley MD [address] [place] [address] PCP - General Family Medicine 08/21/22
--- OUTSIDE RECORDS SUMMARY | 2025-01-31 15:02 | XMS_ITS | Encounter Summary ---
Author Organization [employer] Address [address] [facility] [address] [facility] [address] 7t [place] [address] Care Team Providers Care Yardage Control Operator Name Role Phone Edwige Headley MD Primary Care Provider [phone] Reason for Visit * Reason Onset Date Comments Med Refill 11/13/2024 Encounter Details Date Type Department Care Team ([facility] st Contact Info) Description 11/13/2024 Telephone [facility] MEDICINE [address] [place] [address] Edwige Headley MD [address] [place] [address] Med Refill Social History Tobacco Use Types [...] 50 MG tablet To be sent to: [facility] pharmacy documented in this encounter Plan of Treatment Upcoming Encounters Date Type Department Care Team (Late st Contact Info) Description 02/21/2025 11:00 AM EDT Clinical Support [facility] CHC MED & PEDS [address] [place] [address] Maria Guadalupe Rodríguez, RN [address] [place] [address] documented as of this encounter Goals Goal [...] documented as of this encounter Care Teams Yardage Control Operator Relationship Specialty Start Date End Date Edwige Headley MD [address] [place] [address] PCP - General Family Medicine 08/21/22 documented as of this encounter
--- OUTSIDE RECORDS SUMMARY | 2025-01-31 15:02 | XMS_ITS | Encounter Summary ---
Author Organization [employer] Address [address] [facility] [address] 7t [place] [address] Care Team Providers Care Director Of Intelligence Name Role Phone Edwige Headley MD Primary Care Provider [phone] Reason for Visit * Reason Onset Date Comments Appointment Request 04/06/2024 Encounter Details Date Type Department Care Team ([facility] st Contact Info) Description 04/06/2024 Telephone [facility] MEDICINE [address] [place] [address] Edwige Headley MD [address] [place] [address] Appointment Request Social History Tobacco Use Types [...] somewhere else. Contac pt to r/s at [phone] documented in this encounter Plan of Treatment Upcoming Encounters Date Type Department Care Team (Late st Contact Info) Description 02/21/2025 11:00 AM EDT [facility] [address] [place] [address] Maria Guadalupe Rodríguez, AC [address] [place] [address] documented as of this encounter Goals Goal [...] of this encounter Care Teams Director Of Intelligence Relationship Specialty Start Date End Date Edwige Headley MD [address] [place] [address] PCP - General Family Medicine 08/21/22 documented as of this encounter
--- OUTSIDE RECORDS SUMMARY | 2025-01-31 15:02 | XMS_ITS | Encounter Summary ---
Author Organization [employer] Address [address] [facility] [address] 7t [place] [address] Care Team Providers Care Supervisor Paint Roller Covers Name Role Phone Edwige Headley MD Primary Care Provider [phone] Reason for Visit * Reason Onset Date Comments PT-1 03/28/2024 Encounter Details Date Type Department Care Team ([facility] st Contact Info) Description 03/28/2024 Telephone [facility] MEDICINE 230 [place] [address] Edwige Headley MD [address] [place] [address] PT-1 Social History Tobacco Use Types Packs/Day [...] Y/N: Yes Provider name or facility name: [facility] Facility Address: [address] [place] [address] Escort needed: Y/N: Yes Do you have a wheelchair: Y/N: No If yes- Manual or electric: (Uses Walker) Visits: Once a month documented in this encounter Plan of Treatment Upcoming Encounters Date Type Department Care Team (Late st Contact Info) Description 02/21/2025 11:00 AM EDT Clinical Support [facility] CH[facility] MED & PEDS 505 [place] [address] Maria Guadalupe Rodríguez RN 505 [place] [address] documented as of this encounter Goals Goal [...] documented as of this encounter Care Teams Supervisor Paint Roller Covers Relationship Specialty Start Date End Date Edwige Headley MD 230 [place] [address] PCP - General Family Medicine 08/21/22 documented as of this encounter
--- OUTSIDE RECORDS SUMMARY | 2025-01-31 15:02 | XMS_ITS | Encounter Summary ---
Author Organization [employer] Address [address] [facility] [address] 7t [place] [address] Care Team Providers Care Grain Unloader Name Role Phone Edwige Headley MD Primary Care Provider [phone] Reason for Visit * Reason Onset Date Comments Appointment Request 01/24/2025 Encounter Details Date Type Department Care Team ([facility] st Contact Info) Description 01/24/2025 Telephone [facility] MEDICINE 230 [place] [address] Edwige Headley MD 505 [place] [address] Appointment Request Social History Tobacco Use Types [...] back regarding prior message. Contact pt at [phone] * Telephone Encounter - Tiburcio Thibodeaux - 01/24/2025 9:21 AM EDT Tc from pt requesting to reschedule TALENT ASSISTANT visit from 02/01. Please contact pt at [phone]. (Dutch Speaker) documented in this encounter Plan of Treatment Upcoming Encounters Date Type Department Care Team ([facility] st Contact Info) Description 02/21/2025 11:00 AM EDT Clinical Support [facility] MED & PEDS 505 [place] [address] Maria Guadalupe Rodríguez, AC 505 [place] [address] documented as of this encounter Goals Goal [...] documented as of this encounter Care Teams Grain Unloader Relationship Specialty Start Date End Date Edwige Headley MD 230 [place] [address] PCP - General Family Medicine 08/21/22 documented as of this encounter
--- OUTSIDE RECORDS SUMMARY | 2025-01-31 15:02 | XMS_ITS | Encounter Summary ---
Author Organization [employer] Address [address] [facility] [address] 7[address] [place] [address] Care Team Providers Care Shaft Tender Name Role Phone Edwige Headley MD Primary Care Provider [phone] Encounter Details Date Type Department Care Team ([facility] st Contact Info) Description 01/30/2025 Telephone [facility] CHC MED & PEDS 505 [place] [address] Maria Guadalupe Rodríguez, RN 505 [place] [address] Social History Tobacco Use Types Packs/Day Years [...] the past 12 months, has t he [employer], gas, oil or water [employer] threatened to shut off services in your [...] TC back to pt via S ID# [id number]. EXECUTIVE VICE PRESIDENT appt scheduled for 02/21/25 @ 11am. documented in this encounter Plan of Treatment Upcoming Encounters Date Type Department Care Team (Late st Contact Info) Description 02/21/2025 11:00 AM EDT Clinical Support [facility] MED & PEDS 505 [place] [address] Maria Guadalupe Rodríguez, RN 505 [place] [address] documented as of this encounter Goals Goal [...] documented as of this encounter Care Teams Shaft Tender Relationship Specialty Start Date End Date Edwige Headley MD 230 [place] [address] PCP - General Family Medicine 08/21/22 documented as of this encounter
--- OUTSIDE RECORDS SUMMARY | 2025-01-31 15:02 | XMS_ITS | Encounter Summary ---
Author Organization [employer] Address 75 [facility] 7t [place] [address] Care Team Providers Care Fee Clerk Name Role Phone Edwige Headley MD Primary Care Provider [phone] Encounter Details Date Type Department Care Team (Late st Contact Info) Description 08/03/[address] [facility] MEDICINE 230 [place] [address] Radha Renee MD 505 [place] [address] Alzheimer's disease, unspecified (CODE) ([facility]) Social History Tobacco Use Types Packs/Day Years [...] Description 02/21/2025 11:00 AM EDT Clinical Support [facility] CHC MED & PEDS 505 [place] [address] Maria Guadalupe Rodríguez, AC 505 [place] [address] documented as of this encounter Goals Goal Patient Goal Type Associated Problems Recent Progress Patient-Stated? Author Use the inhalers as prescribed by provider; Flovent HFA scheduled and albuterol as needed General No Marcel Garcia, PharmD Take your medication every day Lifestyle No Marcel Garcia, PharmD documented as of this encounter Visit Diagnoses Diagnosis Alzheimer's disease, unspecified (CODE) ([facility]) documented in this encounter Additional Health Concerns Assessment Noted Time PHQ-9 Depression Total Score: 10 024 12:52 PM EDT documented as of this encounter Care Teams Fee Clerk Relationship Specialty Start Date End Date Edwige Headley MD [address] [place] [address] PCP - General Family Medicine 08/21/22 documented as of this encounter
--- OUTSIDE RECORDS SUMMARY | 2025-01-31 15:02 | XMS_ITS | Encounter Summary ---
Author Organization [employer] Address [address] [facility] [address] 7[address] [place] [address] Care Team Providers Care Frame Polisher Name Role Phone Edwige Headley MD Primary Care Provider [phone] Reason for Visit * Reason Comments Med Refill Encounter Details Date Type Department Care Team ([facility] st Contact Info) Description 10/16/2023 Refill [facility] CHC MED & PEDS 505 [place], [place] [id number] Edwige Headley MD 505 [place] [address] Social History Tobacco Use Types Packs/Day Years [...] 02/21/2025 11:00 AM EDT Clinical Support [facility] MED & PEDS 505 [place] [address] Maria Guadalupe Rodríguez, RN 505 [place] [address] documented as of this encounter Goals Goal [...] documented as of this encounter Care Teams Frame Polisher Relationship Specialty Start Date End Date Edwige Headley MD 230 [place] [address] PCP - General Family Medicine 08/21/22 documented as of this encounter
--- OUTSIDE RECORDS SUMMARY | 2025-01-31 15:02 | XMS_ITS | Encounter Summary ---
Author Organization [employer] Address 75 [facility] [address] 7t [place] [address] Care Team Providers Care Rubber Cutting Machine Tender Name Role Phone Edwige Headley MD Primary Care Provider [phone] Reason for Visit * Reason Onset Date Comments Lab Orders 07/06/2024 Encounter Details Date Type Department Care Team ([facility] st Contact Info) Description 07/06/2024 Telephone [facility] MEDICINE 230 [place] [address] Edwige Headley MD 505 [place] [address] Lab Orders Social History Tobacco Use Types [...] TC x 3 placed to pt via [employer] physician president (Ace ID#[id number]) to inform a tuberculosis lab order was placed by the provider for her to have done at her convenience. Pt verbalized understanding and deniesquestions or concerns at this time. * Telephone Encounter - Mau Overton - 07/06/2024 4:20 PM EST Tc from pt returning call. Pt needs an Window Shade Estimator. * Telephone Encounter - Zoë Dorantes RN - 07/06/2024 3:33 PM EST TC placed to pt via [employer] physician president (ID#[id number]) to inform a tuberculosis lab order was [...] Description 02/21/2025 11:00 AM EDT Clinical Support [facility] MED & PEDS 505 [place], [place] [phone] Maria Guadalupe Rodríguez, RN [address] [place], [place] documented as of this encounter Goals [...] AM EST) T Spot TB Negative Negative [facility] Comment:A negative test resu [...] as aquantitative test. TS PANEL A 0 [facility] TS PANEL B 0 [facility] Negative Control Passed [facility] Positive Control Passed [facility] Comment:For additional infor nika, please refer tohttp://education.[employer].com/faq/FNZ708(This link is being provided for informational/educational purposes only.)THIS TEST WAS PERFORMED AT:[employer] [place] [address]XCLNPIEVIRGINIA DAN MD,PHD 07/07/2024 9:23 AM EST 07/07/2024 1:55 PM EST us Edwige Headley MD LAB BLOOD ORDERABLES Final Re sult [facility] [address] [place] [phone] documented in this encounter Visit Diagnoses Diagnosis Encounter for screening for respiratory tuberculosis documented in this encounter Additional Health Concerns Assessment Noted Time PHQ-9 Depression Total Score: 10 06/2 024 12:52 PM EDT documented as of this encounter Care Teams Rubber Cutting Machine Tender Relationship Specialty Start Date End Date Edwige Headley MD [address] [place] [address] PCP - General Family Medicine 08/21/22 documented as of this encounter
--- OUTSIDE RECORDS SUMMARY | 2025-01-31 15:02 | XMS_ITS | Encounter Summary ---
Author Organization [employer] Address [address] [facility] [address] 7[address] [place] [address] Care Team Providers Care Vp Design Name Role Phone Edwige Headley MD Primary Care Provider [phone] Reason for Visit * Reason Onset Date Comments Appointment Request 09/05/2024 Encounter Details Date Type Department Care Team ([facility] st Contact Info) Description 09/05/2024 Telephone [facility] 230 [place] [address] Edwige Headley MD 505 [place] [address] Appointment Request Social History Tobacco Use Types [...] 02/21/2025 11:00 AM EDT Clinical Support [facility] MED & PEDS 505 [place] [address] Maria Guadalupe Rodríguez, RN 505 [place] [address] documented as of this encounter Goals Goal [...] documented as of this encounter Care Teams Vp Design Relationship Specialty Start Date End Date Edwige Headley MD 230 [place] [address] PCP - General Family Medicine 08/21/22 documented as of this encounter
--- OUTSIDE RECORDS SUMMARY | 2025-01-31 15:02 | XMS_ITS | Encounter Summary ---
Author Organization [employer] Address [address] [facility] [address] 7t [place] [address] Care Team Providers Care Courtesy Booth Cashier Name Role Phone Edwige Headley MD Primary Care Provider [phone] Reason for Visit * Reason Onset Date Comments Hospital Follow-up 05/25/2024 Encounter Details Date Type Department Care Team ([facility] st Contact Info) Description 05/25/2024 Telephone [facility] MEDICINE 230 [place] [address] Edwige Headley MD [address] [place] [address] Hospital Follow-up Social History Tobacco Use Types [...] from pt requesting a HDF appt. Hospital: [facility] Date of admission: 05/16/2024 Discharge date: 2024 Diagnosed: Discuss with pt. *Send message to [place] Clinical Care Coordinators documented in this encounter Plan of Treatment Upcoming Encounters Date Type Department Care Team (Late st Contact Info) Description 02/21/2025 11:00 AM EDT Clinical Support [facility] CH[facility] MED & PEDS 505 [place] [address] Maria Guadalupe Rodríguez, RN 505 [place] [address] documented as of this encounter Goals Goal [...] documented as of this encounter Care Teams Courtesy Booth Cashier Relationship Specialty Start Date End Date Edwige Headley MD 230 [place] [address] PCP - General Family Medicine 08/21/22 documented as of this encounter
--- OUTSIDE RECORDS SUMMARY | 2025-01-31 15:02 | XMS_ITS | Encounter Summary ---
Author Organization [employer] Address 75 [facility] [address] 7t [place] [address] Care Team Providers Care Back Feeder Plywood Layup Line Name Role Phone Edwige Headley MD Primary Care Provider [phone] Reason for Visit * Reason Onset Date Comments Med Refill 01/18/2025 Encounter Details Date Type Department Care Team (Late st Contact Info) Description 01/18/2025 Telephone [facility] MEDICINE 230 [place] [address] Edwige Headley MD 505 [place] [address] Med Refill Social History Tobacco Use Types [...] MG tablet To be sent to: - [facility] [place], [place] - 230 [facility] documented in this encounter Plan of Treatment Upcoming Encounters Date Type Department Care Team ([facility] st Contact Info) Description 02/21/2025 11:00 AM EDT Clinical Support [facility] MED & PEDS 505 [place] [address] Maria Guadalupe Rodríguez RN 505 [place] [address] documented as of this encounter Goals Goal [...] documented as of this encounter Care Teams Back Feeder Plywood Layup Line Relationship Specialty Start Date End Date Edwige Headley MD [address] [place] [address] PCP - General Family Medicine 08/21/22 documented as of this encounter
--- OUTSIDE RECORDS SUMMARY | 2025-01-31 15:02 | XMS_ITS | Encounter Summary ---
Author Organization [employer] Address [address] [facility] [address] [place] [address] Care Team Providers Care Environmental Systems Coordinator Name Role Phone Edwige Headley MD Primary Care Provider [phone] Reason for Visit * Reason Comments Med Refill Encounter Details Date Type Department Care Team ([facility] st Contact Info) Description 08/13/2023 Refill [facility] CHC MED & PEDS 505 [place], [place] [phone] Edwige Headley MD 505 [place] [address] Social History Tobacco Use Types Packs/Day Years [...] [facility] MED & PEDS 505 [place] [address] Maria Guadalupe Rodríguez, RN 505 [place] [address] documented as of this encounter Goals Goal [...] documented as of this encounter Care Teams Environmental Systems Coordinator Relationship Specialty Start Date End Date Edwige Headley MD 230 [place] [address] PCP - General Family Medicine 08/21/22 documented as of this encounter
--- OUTSIDE RECORDS SUMMARY | 2025-01-31 15:02 | XMS_ITS | Encounter Summary ---
Author Organization [employer] Address [address] [facility] [address] [place] [address] Care Team Providers Care Television Cameraman Name Role Phone Edwige Headley MD Primary Care Provider [phone] Reason for Visit * Reason Onset Date Comments Medical Necessity Form 10/20/2024 Encounter Details Date Type Department Care Team ([facility] st Contact Info) Description 10/20/2024 Telephone [facility] MEDICINE 230 [place] [address] Edwige Headley MD 505 [place] [address] Medical Necessity Form Social History Tobacco Use [...] - 10/20/2024 10:29 AM EDT TC from [facility] with [facility] requesting a medical necessity form regarding a stair lift. She stated that provider agreement is required for processing and requested the form be faxed to [phone]. documented in this encounter Plan of Treatment Upcoming Encounters Date Type Department Care Team ([facility] Contact Info) Description 02/21/2025 11:00 AM EDT Clinical Support [facility] MED & PEDS 505 [place] [address] Maria Guadalupe Rodríguez, RN 505 [place] [address] documented as of this encounter Goals Goal [...] documented as of this encounter Care Teams Television Cameraman Relationship Specialty Start Date End Date Edwige Headley MD 230 [place] [address] PCP - General Family Medicine 08/21/22 documented as of this encounter
== END 2025-01-31 12:07 | disposition home or self-care (01) ==
LOC: HO.HOS 11:40
PROVIDERS: PCP Family Medicine
DX: M65.342 Trigger finger, left ring finger (principal); M65.322 Trigger finger, left index finger
CPT/HCPCS: 20550; 99213

== ENCOUNTER → 2025-01-31 11:39 | Outpatient (BNVA) | payer OTHER, SELFPAY | PROVIDERS: PCP Family Medicine | DX: M65.342 Trigger finger, left ring finger (principal); M65.322 Trigger finger, left index finger | CPT/HCPCS: 20550; 99212; J1100; J2003 ==

== ENCOUNTER 2025-02-01 14:54 | Outpatient (REF) | payer OTHER, SELFPAY ==
--- OUTSIDE RECORDS SUMMARY | 2025-02-01 14:20 | XMS_ITS | Encounter Summary ---
Author Organization [employer] Address [address] [facility] [address] 7t [place] [address] Care Team Providers Care Scrap Handler Name Role Phone Edwige Headley MD Primary Care Provider [phone] Reason for Visit * Reason Comments Leg Pain Encounter Details Date Type Department Care Team ([facility] st Contact Info) Description 02/01/2025 2:20 PM EDT Office Visit [facility] [address] [place] [phone] Viviana Lou MD 230 [place] [address] Pain in both lower extremities (Primary Dx) Social History Tobacco Use Types [...] Sign Reading Time Taken Comments Blood Pressure 101/58 02/01/2025 2:27 PM EDT Pulse 83 02/01/2025 2:27 PM EDT Temperature 36.7 C (98.1 F) 02/01/2025 2:27 PM EDT Respiratory Rate 16 02/01/2025 2:27 PM EDT Oxygen Saturation 97% 02/01/2025 2:27 PM EDT Inhaled Oxygen Concentration - - Weight 54.4 kg (120 lb) 02/01/2025 2:27 PM EDT Height - - Body Mass Index 23.44 01/12/2025 3:21 PM EDT documented in this encounter Progress Notes * Bailey Mckenna - 02/01/2025 2:20 PM EDT Subjective Patient ID: Ed Hoffmann is a 79 y.o. female with past medical history of hypertension, CAD, congestive heart failure, type 2 diabetes, GERD, CKD stage II, opiate use, anxiety, fibromyalgia,alzheimer's disease, and COPD who presents to walk in clinic for Leg Pain. Referred to PT 01/12/25 Referred to Orthopedics 11/30/24 Pt reports pain for years running down her left leg. She has episodes of pain that last about two hours that is now in both legs. Pt also reports involuntary movements of bilateral legs, not present now. Review of Systems Constitutional: Negative for fever and unexpected weight change. Respiratory: Negative for shortness of breath. Cardiovascular: Negative for chest pain. Gastrointestinal: Negative for abdominal pain. Genitourinary: Negative for difficulty urinating. Musculoskeletal: Positive for arthralgias. Neurological: Positive for numbness. Objective Visit Vitals BP 101/58 (BP Location: Left arm, Patient Position: Sitting, BP Cuff Size: Adult) Pulse 83 Temp 98.1 ??F (36.7 ??C) (Temporal) Resp 16 Body mass index is 23.44 kg/m??. Physical Exam Constitutional: Appearance: Normal appearance. Cardiovascular: Rate and Rhythm: Normal rate and regular rhythm. Pulses: Normal pulses. Heart sounds: Normal heart sounds. Pulmonary: Effort: Pulmonary effort is normal. Breath sounds: Normal breath sounds. Musculoskeletal: Cervical back: Normal range of motion and neck supple. Feet: Comments: Slight decreased sensation at distal plantar toes. Neurological: General: No focal deficit present. Mental Status: She is alert. Psychiatric: Behavior: Behavior normal. Assessment & Plan Pain in both lower extremities -No evidence of acute disease process. Suspect neuralgia vs fibromyalgia vs restless leg syndorme. Symptoms mild. -ordered ferritin and Vit B12 02/01/25 -prescribed magnesium supplementation 02/01/25 -ER precautions discussed. -Seek medical attention for worsening symptoms. Orders: Ferritin; Future Vitamin B12/Folate, Serum Panel; Future magnesium 250 MG tablet; 1 tab po at bedtime prn leg discomfort at night Future Appointments Date Time Provider Department Center 02/21/2025 11:00 AM Maria Guadalupe Rodríguez RN [facility] Bailey Souza, am serving as a scribe to document services personally performed by Dr. Brady, based on the patient's response to questions by provider and providers statements to me. documented in this encounter Plan of Treatment Upcoming Encounters Date Type Department Care Team (Late st Contact Info) Description 02/21/2025 11:00 AM EDT Clinical Support [facility] MED & PEDS 505 [place] [address] Maria Guadalupe Rodríguez RN 505 [place] [address] Scheduled Orders Name Type Priority Associated Diagnoses Orde r Schedule Ferritin Lab Routine Pain in both lower extremities Expected: 02/01/2025, Expires: 02/01/2026 Vitamin B12/Folate, Serum Panel Lab Routine Pain in both lower extremities Expected: 02/01/2025, Expires: 02/01/2026 documented as of this encounter Goals Goal Patient Goal Type Associated Problems Recent Progress Patient-Stated? Author Use the inhalers as prescribed by provider; Flovent HFA scheduled and albuterol as needed General No Marcel Garcia PharmD Take your medication every day Lifestyle No Marcel Garcia PharmD documented as of this encounter Visit Diagnoses Diagnosis Pain in both lower extremities- Primary documented in this encounter Additional Health Concerns Assessment Noted Time PHQ-9 Depression Total Score: 12 025 3:39 PM EDT documented as of this encounter Care Teams Scrap Handler Relationship Specialty Start Date End Date Edwige Headley MD [address] [place] [address] PCP - General Family Medicine 08/21/22 documented as of this encounter
[2025-02-01 16:12] LABS: MANUAL DIFF FLAG NO
[2025-02-01 16:15] LABS: Hematocrit 37.7 % (37.0-47.0); Hemoglobin 12.7 g/dl (12.0-16.0); Imm Gran Abs Auto 0.03 X10*3/uL (0.00-0.03); Imm Gran Pct Auto 0.4 % (0.0-0.4); Lymphocytes Absolute Auto 2.3 X10*3/uL (1.2-4.9); Mean Corpuscular HGB Conc 33.7 g/dl (31.0-35.0); Mean Corpuscular Hemoglobin 29.7 pg (27.0-33.0); Mean Corpuscular Volume 88.1 fL (80.0-98.0); NRBC Abs Auto 0.000 X10*3/uL (0.0-0.012); NRBC Pct Auto 0.0 /100WBC (0.0-0.2); Platelet Count 232 X10*3/uL (160-400); Red Blood Count 4.28 X10*6/uL (4.20-5.50); White Blood Count 8.1 X10*3/uL (4.8-10.8)
--- OUTSIDE RECORDS SUMMARY | 2025-02-01 16:34 | XMS_ITS | Encounter Summary ---
Author Organization [employer] Address [address] [facility] [address]t [place] [address] Care Team Providers Care Construction Supervisor/Carpenter Name Role Phone Edwige Headley MD Primary Care Provider [phone] Reason for Visit * Reason Onset Date Comments Appointment Request 09/05/2024 Encounter Details Date Type Department Care Team ([facility] st Contact Info) Description 09/05/2024 Telephone [facility] MEDICINE 230 [place] [address] Edwige Headley MD 505 [place] [address] Appointment Request Social History Tobacco Use Types [...] 11:00 AM EDT Clinical Support [facility] MED & PEDS 505 [place] [address] Maria Guadalupe Rodríguez, RN 505 [place] [address] documented as of this encounter Goals Goal [...] documented as of this encounter Care Teams Construction Supervisor/Carpenter Relationship Specialty Start Date End Date Edwige Headley MD 230 [place] [address] PCP - General Family Medicine 08/21/22 documented as of this encounter
--- OUTSIDE RECORDS SUMMARY | 2025-02-01 16:34 | XMS_ITS | Encounter Summary ---
Author Organization [employer] Address 75 [facility] 7t [place] [address] Care Team Providers Care Suture Gauger Name Role Phone Edwige Headley MD Primary Care Provider [phone] Encounter Details Date Type Department Care Team ([facility] Contact Info) Description 11/03/2022 Abstract [place] [employer] Information Management [address] [place] [address] Edwige Headley MD 505 [place] [address] Social History Tobacco Use Types Packs/Day Years [...] Upcoming Encounters Date Type Department Care Team ([facility] Contact Info) Description 02/21/2025 11:00 AM EDT Clinical Support [facility] MED & PEDS 505 [place], [place] [phone] Maria Guadalupe Rodríguez RN 505 [place] [address] documented as of this encounter Goals Goal [...] documented as of this encounter Care Teams Suture Gauger Relationship Specialty Start Date End Date Edwige Headley MD 230 [place] [address] PCP - General Family Medicine 08/21/22 documented as of this encounter
--- OUTSIDE RECORDS SUMMARY | 2025-02-01 16:34 | XMS_ITS | Encounter Summary ---
Author Organization [employer] Address [address] [facility] [address] 7t [place] [address] Care Team Providers Care Pain Management Physician Name Role Phone Edwige Headley MD Primary Care Provider [phone] Reason for Visit * Reason Onset Date Comments Lab Orders 07/06/2024 Encounter Details Date Type Department Care Team ([facility] st Contact Info) Description 07/06/2024 Telephone [facility] [address] [place] [address] Edwige Headley MD 505 [place] [address] Lab Orders Social History Tobacco Use Types [...] TC x 3 placed to pt via [employer] hardware supplies sales representative (Ace ID#[id number]) to inform a tuberculosis lab order was placed by the provider for her to have done at her convenience. Pt verbalized understanding and deniesquestions or concerns at this time. * Telephone Encounter - Mau Overton - 07/06/2024 4:20 PM EST Tc from pt returning call. Pt needs an Physical Education Teacher. * Telephone Encounter - Zoë Dorantes RN - 07/06/2024 3:33 PM EST TC placed to pt via [employer] supplies sales representative (ID#[id number]) to inform a tuberculosis lab order was [...] [facility] [address] [place], [place] [phone] Maria Guadalupe Rodríguez, RN 505 [place], [place] documented as of this encounter Goals [...] AM EST) T Spot TB Negative Negative [facility] Comment:A negative test resu [...] as aquantitative test. TS PANEL A 0 [facility] TS PANEL B 0 [facility] Negative Control Passed [facility] Positive Control Passed [facility] Comment:For additional infor nika, please refer tohttp://education.[email or web address].com/faq/[email or web address](This link is being provided for informational/educational purposes only.)THIS TEST WAS PERFORMED AT:[facility] [place] [address]MMKVDLEVIRGINIA DAN MD,PHD 07/07/2024 9:23 AM EST 07/07/2024 1:55 PM EST us Edwige Headley MD LAB BLOOD ORDERABLES Final Re sult [facility] [address] [place] [phone] documented in this encounter Visit Diagnoses Diagnosis Encounter for screening for respiratory tuberculosis documented in this encounter Additional Health Concerns Assessment Noted Time PHQ-9 Depression Total Score: 10 06/2 024 12:52 PM EDT documented as of this encounter Care Teams Pain Management Physician Relationship Specialty Start Date End Date Edwige Headley MD [address] [place] [phone] PCP - General Family Medicine 08/21/22 documented as of this encounter
--- OUTSIDE RECORDS SUMMARY | 2025-02-01 16:34 | XMS_ITS | Clinical Summary ---
Author Organization [employer] Address [address] [facility] 7t [place] [address] Care Team Providers Care Mathematical Statistician Name Role Phone Edwige Headley MD Primary Care Provider [phone] Allergies Active Allergy Reactions Criticality Noted Date [...] each 023 Active Lancets (OneTouch Delica Plus [id number]) misc 1 Units in the morning. Please [...] MOUTH AT BEDTIME 90 tablet 1 Active [facility] CompaniesTouch Ultra Test test strip USE DIRECTED TO [...] 28 days. 56 tablet 025 2024 Active magnesium 250 MG tabletIndicatio ns:Pain in both lower extremities 1 tab po at bedtime prn leg discomfort at night 30 tablet 2 Active estradiol (Estrace) 0.1 MG/GM vaginal cream [...] Trelegy , which was prescribed by a welcome wagon hostess. Oxygen saturation appears stable at rest, but there is a need to assess for desaturation with ambulation. Plan: - Continue Trelegy 262.5/25 as prescribed by welcome wagon hostess - Assess oxygen saturation with ambulation - Consider low-dose chronic steroids (to be discussed with welcome wagon hostess) - Follow up with welcome wagon hostess on the of the current month Bilateral [...] swallow test came back normal. Referred to inspector filters Assessment & Plan (07/20/2023 9:51 PM EST): [...] be prescribed steroids. Recommended patient to call Director Of Sports Performance to schedule an appointment to get further [...] Center 10/18/2023 3:30 PM Edwige Headley MD [facility] Assessment & Plan (03/19/2023 3:58 PM [...] daughter. PLAN: 1. Follow up with [facility]: Not recommended for follow-up 2. Patient goal is to be able to manage her symptoms without medication. 3. Behavioral Recommendations a. Referral to Ind. therapy b. Practice of Coping skills for Anxiety c. Contact this tech writer for support as needed Encounters Date Type Department Care Team Description 02/01/2025 2:20 PM EDT Office Visit [facility] [address] [place] [address] Viviana Lou MD Pain in both lower extremities (Primary Dx) 02/01/2025 Travel 01/30/2025 Telephone [facility] [address] [place] [address] Maria Guadalupe Rodríguez RN 01/24/2025 Telephone [facility] [address] [place] [address] Edwige Headley MD Appointment Request 01/18/2025 Refill [facility] [address] [place] [address] Edwige Headley MD Fibromyalgia 01/18/2025 Telephone [facility] [address] [place] [address] Edwige Headley MD Med Refill 01/17/2025 Refill [facility] [address] [place] [address] Radha Renee MD 01/16/2025 Refill [facility] [address] [place] [address] Edwige Headley MD 01/15/2025 Refill [facility] [address] [place] [address] Radha Renee MD 01/12/2025 3:15 PM EDT Office Visit [facility] [address] [place] [address] Edwige Headley MD Iliotibial band syndrome, left (Primary Dx); Atrophic vaginitis 01/12/2025 Travel 01/11/2025 Telephone [facility] [address] [place] [address] Edwige Headley MD Chart Prep 01/05/2025 Patient Outreach [facility] [address] [place] [address] Edwige Headley MD Pre-visit Planning ([facility] screening completed on 09/19/24 ) 12/25/2024 Refill [facility] [address] [place] [address] Robert High MD 12/25/2024 Refill [facility] [address] [place] [address] Edwige Headley MD 12/21/2024 Refill [facility] [address] [place] [address] Edwige Headley MD Fibromyalgia (Primary Dx) 12/19/2024 Refill [facility] [address] [place] [address] Maryuri Miller FNP 11/30/2024 9:15 AM EDT Office Visit [facility] [address] [place] [address] Radha Renee MD Acute left-sided low back pain without sciatica (Primary Dx); Diabetes mellitus due to underlying condition with hyperglycemia, without long-term current use of insulin ([facility]) 11/30/2024 Travel 11/28/2024 Refill [facility] [address] [place] [address] Edwige Headley MD Fibromyalgia 11/28/2024 Telephone [facility] [address] [place] [address] Edwige Headley MD Nurse Triage 11/23/2024 11:00 AM EDT Clinical Support [facility] [address] [place] [address] Maria Guadalupe Rodríguez RN Fibromyalgia 11/23/2024 Refill [facility] [address] [place] [address] Maria Guadalupe Rodríguez RN 11/23/2024 Travel 11/16/2024 Refill [facility] [address] [place] [address] Radha Renee MD Alzheimer's disease, unspecified (CODE) ([facility]) 11/13/2024 Telephone [facility] [address] [place] [address] Edwige Headley MD Med Refill 11/13/2024 Telephone [facility] [address] [place] [address] Edwige Headley MD requesting call back 11/07/2024 Refill [facility] [address] [place] [address] Edwige Headley MD Fibromyalgia from Last 3 [...] (120 lb) 02/01/2025 2:27 PM EDT Height 152.4 cm (5') 01/12/2025 3:21 PM EDT Body Mass Index 23.44 01/12/2025 3:21 PM EDT Plan of Treatment Upcoming Encounters Date Type Department Care Team (Late st Contact Info) Description 02/21/2025 11:00 AM EDT Clinical Support [facility] [address] [place] [address] Maria Guadalupe Rodríguez, RN [address] [place] [address] Health Maintenance Due Date Last Done Comments [...] Alcohol/Substance Use Screening 01/12/2026 01/12/2025 Tobacco Screening 02/01/2026 02/01/2025 DTaP/Tdap/Td Vaccines (2 - Td or Tdap) [...] topic Meningococcal Vaccine Aged Out No gladis maliaka eligible based on patient's age to complete [...] Procedure Name Priority Date/Time Associated Diagnosis Comments CBC WITH AUTO DIFFERENTIAL Routine 02/01/2025 2:59 PM EDT Other fatigue POCT GLUCOSE Routine 11/30/2024 9:44 AM EDT Diabetes mellitus due to underlying condition with hyperglycemia, without long-term current use of insulin ([facility]) POCT SENAIT-14 URINE DRUG SCREEN Routine 11/23/2024 12:02 PM EDT Fibromyalgia POCT GLYCATED HEMOGLOBIN, TOTAL Routine 09/27/2024 3:04 PM EDT Diabetes mellitus due to underlying condition with hyperglycemia, without long-term current use of insulin (CMS/HCC) ALBUMIN, RANDOM URINE W/CREATININE Routine 07/18/2024 9:57 AM EST Type 2 diabetes mellitus with hyperglycemia, without long-term current use of insulin ([facility]/HCC) HEPATITIS C AB W/REFL TO HCV RNA, QN, PCR Routine 07/07/2024 9:23 AM EST Chronic diastolic heart failure (CMS/HCC) LIPID PANEL, STANDARD Routine 08/30/2023 10:36 AM EDT from Last 3 Months or Most Recently Relevant to Health Maintenance Results * (ABNORMAL) CBC auto differential (02/01/2025 2:59 PM EDT) White Blood Count 8.1 4.8 - 10.8 X10*3/uL [facility] Red Blood Count 4.28 4.20 - 5.50 X10*6/uL [facility] Hemoglobin 12.7 12.0 - 16.0 g/dl [facility] Hematocrit 37.7 37.0 - 47.0 % [facility] Mean Corpuscular Volume 88.1 80.0 - 98.0 fL [facility] Mean Corpuscular Hemoglobin 29.7 27.0 - 33.0 pg [facility] Mean Corpuscular HGB Conc 33.7 31.0 - 35.0 g/dl [facility] Red Cell Distribution Width 15.1 11.0 - 16.0 % [facility] Platelet Count 232 160 - 400 X10*3/uL [facility] Mean Platelet Volume 11.2 9.4 - 12.3 fL [facility] Neutrophils Percent Auto 58.3 45 - 73 % [facility] Imm Gran Pct Auto 0.4 0.0 - 0.4 % [facility] Lymphocytes Percent Auto 28.0 20 - 40 % [facility] Monocytes Percent Auto 12.2(H) 2 - 11 % [facility] Eosinophils Percent Auto 0.6 0 - 4 % [facility] Basophils Percent Auto 0.5 0 - 2 % [facility] NRBC Pct Auto 0.0 0.0 - 0.2 /100WBC [facility] Neutrophils Absolute Auto 4.7 2.0 - 8.3 x10*3/uL [facility] Imm Gran Abs Auto 0.03 0.00 - 0.03 X10*3/uL [facility] Lymphocytes Absolute Auto 2.3 1.2 - 4.9 X10*3/uL [facility] Monocytes Absolute Auto 1.0 0.1 - 1.2 X10*3/uL [facility] Eosinophils Absolute Auto 0.1 0.0 - 0.4 X10*3/uL [facility] Basophils Absolute Auto 0.0 0.0 - 0.2 X10*3/uL [facility] NRBC Abs Auto 0.000 0.0 - 0.012 X10*3/uL [facility] Blood Venous blood specimen / Unknown 02/01/2025 2:59 PM EDT 02/01/2025 4:03 PM EDT Edwige Headley MD LAB BLOOD ORDERABLES Final Re sult [facility] [address] [place] [phone] * POCT Glucose (11/30/2024 9:44 AM EDT) [...] Date 122,027 Blood 09/27/2024 3:04 PM EDT us Edwige Headley MD POINT OF CARE TEST ENTER/EDIT ORDERABLES Final Result * Albumin, Random Urine W/Creatinine (07/18/2024 9:57 AM EST) Creatinine, Urine 47.58 mg/dL [facility] Microalbumin Urine 13.0 mg/L [facility] Microalbum Creatinine Ratio Ur 27.3 <30 ug/mg cr [facility] Comment:Albumin/Creatinine R atio Reference Ranges: Normal: < 30 ug/mg creatinine Microalbuminuria: 30 - 300 ug/mg creatinineClinical Albuminuria: > 300 ug/mg creatinine Urine (Urine, Random) 07/18/2024 9:57 AM EST 07/18/2024 2:15 PM EST us Radha Renee MD LAB URINE ORDERABLES Final Result Performing Organization Address [facility]/ZIP Co de Phone Number [facility] [address] [place] [phone] * Hepatitis C Antibody with Reflex to HCV, RNA, Quantitative, Real-Time PCR (07/07/2024 9:23 AM EST) Pathologist [facility] Hepatitis C Antibody Nonreactive Nonreactive [facility] Comment:Antibodies to HCV no t detected; does not exclude early acuteHCV infection. Blood Venous blood specimen / Unknown 07/07/2024 9:23 AM EST 07/07/2024 1:55 PM EST us Radha Renee MD LAB BLOOD ORDERABLES Final Result Performing Organization Address City/[facility]/ZIP Co de Phone Number [facility] [address] [place] [phone] * Lipid Panel, Standard (08/30/2023 10:36 AM EDT) Triglycerides 39 <150 mg/dL [facility] Comment:Desirable Triglyceri de: less than 150 mg/dLBorderline High Triglyceride 150-199 mg/dLHigh Triglyceride: 200-499 mg/dLVery High Triglyceride: greater than or equal to 5OO mg/dL Cholesterol 116 <200 mg/dL [facility] Comment:Desirable Cholestero l: less than 200 mg/dLBorderline High Cholesterol: 200-239 mg/dLHigh Cholesterol: greater than 239 mg/dL LDL Cholesterol Calculated 35 <100 mg/dL [facility] Comment:Desirable LDL: less than 100 mg/dLNear Optimal/Above Optimal LDL: 110- 129 mg/dLBorderline High LDL: 130-159 mg/dLHigh LDL: 160-189 mg/dLVery High LDL: greater than or equal to 190 mg/dL HDL Cholesterol 74 >40 mg/dL [facility] Comment:Desirable HDL: great er than 40 mg/dL Note: This HDL assay may give artificially low results in patients with liver disease. 08/30/2023 10:3 6 AM EDT 08/30/2023 10:41 AM EDT us Generic External Data Provider LAB BLOOD ORDERAB LES Final Result [facility] [address] [place] [phone] from Last 3 Months or Most Recently Relevant to Health Maintenance [facility] Care Teams Mathematical Statistician Relationship Specialty Start Date End Date Edwige Headley MD [address] [place] [phone] PCP - General Family Medicine 08/21/22
--- OUTSIDE RECORDS SUMMARY | 2025-02-01 16:34 | XMS_ITS | Encounter Summary ---
Author Organization [employer] Address [address] [facility] [address] 7t [place] [address] Care Team Providers Care Curing Press Maintainer Name Role Phone Edwige Headley MD Primary Care Provider [phone] Reason for Visit * Reason Onset Date Comments Appointment Request 08/17/2024 Encounter Details Date Type Department Care Team ([facility] st Contact Info) Description 08/17/2024 Telephone [facility] [address] [place] [address] Edwige Headley MD 505 [place] [address] Appointment Request Social History Tobacco Use Types [...] 11:00 AM EDT Clinical Support [facility] [address] [place] [address] Maria Guadalupe Rodríguez, RN [address] [place] [address] documented as of this encounter Goals Goal [...] documented as of this encounter Care Teams Curing Press Maintainer Relationship Specialty Start Date End Date Edwige Headley MD [address] [place] [address] PCP - General Family Medicine 08/21/22 documented as of this encounter
--- OUTSIDE RECORDS SUMMARY | 2025-02-01 16:34 | XMS_ITS | Encounter Summary ---
Author Organization [employer] Address [address] [facility] [address] [place] [address] Care Team Providers Care Diet Clerk Name Role Phone Edwige Headley MD Primary Care Provider [phone] Reason for Visit * Reason Onset Date Comments Appointment Request 01/24/2025 Encounter Details Date Type Department Care Team ([facility] st Contact Info) Description 01/24/2025 Telephone [facility] [address] [place] [address] Edwige Headley MD 505 [place] [address] Appointment Request Social History Tobacco Use Types [...] back regarding prior message. Contact pt at [phone] * Telephone Encounter - Tiburcio Thibodeaux - 01/24/2025 9:21 AM EDT Tc from pt requesting to reschedule BOTTLER HELPER visit from 02/01. Please contact pt at [phone]. (Bangladeshi Speaker) documented in this encounter Plan of Treatment Upcoming Encounters Date Type Department Care Team ([facility] st Contact Info) Description 02/21/2025 11:00 AM EDT Clinical Support [facility] [address] [place] [address] Maria Guadalupe Rodríguez, AC [address] [place] [address] documented as of this encounter Goals Goal [...] documented as of this encounter Care Teams Diet Clerk Relationship Specialty Start Date End Date Edwige Headley MD [address] [place] [address] PCP - General Family Medicine 08/21/22 documented as of this encounter
--- OUTSIDE RECORDS SUMMARY | 2025-02-01 16:34 | XMS_ITS | Encounter Summary ---
Author Organization [employer] Address [address] [facility] 7 [place] [address] Care Team Providers Care Bid Manager Name Role Phone Edwige Headley MD Primary Care Provider [phone] Reason for Visit * Reason Comments Med Refill Encounter Details Date Type Department Care Team ([facility] st Contact Info) Description 10/23/2024 Refill [facility] [address] [place], [place] [phone] Rdaha Renee MD [address] [place] [address] Social History Tobacco Use Types Packs/Day Years [...] Description 02/21/2025 11:00 AM EDT Clinical Support [facility] [address] [place] [address] Maria Guadalupe Rodríguez, RN 505 [place] [address] documented as of this encounter Goals Goal [...] documented as of this encounter Care Teams Bid Manager Relationship Specialty Start Date End Date Edwige Headley MD [address] [place] [address] PCP - General Family Medicine 08/21/22 documented as of this encounter
--- OUTSIDE RECORDS SUMMARY | 2025-02-01 16:34 | XMS_ITS | Encounter Summary ---
Author Organization [employer] Address [address] [facility] [address] [place] [address] Care Team Providers Care Airport Skilled Maintenance Supervisor Name Role Phone Edwige Headley MD Primary Care Provider [phone] Encounter Details Date Type Department Care Team ([facility] st Contact Info) Description 10/22/2022 Telephone [facility] [address] [place], [place] [phone] Edwige Headley MD 505 [place] [address] Social History Tobacco Use Types Packs/Day Years [...] a call in regards to message above. (Kazakh speaker) * Telephone Encounter - Inez Martinez - 10/22/2022 3:31 PM EDT TC from pt requesting help to schedule her gastro appt . Please call to clarify . documented in this encounter Plan of Treatment Upcoming Encounters Date Type Department Care Team (Late st Contact Info) Description 02/21/2025 11:00 AM EDT Clinical Support [facility] [address] [place] [address] Maria Guadalupe Rodríguez, RN [address] [place] [address] documented as of this encounter Goals Goal [...] documented as of this encounter Care Teams Airport Skilled Maintenance Supervisor Relationship Specialty Start Date End Date Edwige Headley MD 230 [place] [address] PCP - General Family Medicine 08/21/22 documented as of this encounter
--- OUTSIDE RECORDS SUMMARY | 2025-02-01 16:34 | XMS_ITS | Encounter Summary ---
Author Organization [employer] Address [address] [facility] 7t [place] [address] Care Team Providers Care Steel Shot Header Operator Name Role Phone Edwige Headley MD Primary Care Provider [phone] Reason for Visit * Reason Comments Med Refill Encounter Details Date Type Department Care Team (Late Contact Info) Description 12/04/2022 Refill [facility] [address] [place] [address] Edwige Headley MD 505 [place] [address] Social History Tobacco Use Types Packs/Day Years [...] Description 02/21/2025 11:00 AM EDT Clinical Support [facility] [address] [place] [address] Maria Guadalupe Rodríguez AC [address] [place] [address] documented as of this encounter Goals Goal [...] documented as of this encounter Care Teams Steel Shot Header Operator Relationship Specialty Start Date End Date Edwige Headley MD 230 [place] [address] PCP - General Family Medicine 08/21/22 documented as of this encounter
--- OUTSIDE RECORDS SUMMARY | 2025-02-01 16:34 | XMS_ITS | Encounter Summary ---
Author Organization [employer] Address [address] 7[address] [place] [address] Care Team Providers Care Stringed Instrument Repairer Name Role Phone Edwige Headley MD Primary Care Provider [phone] Reason for Visit * Reason Onset Date Comments Med Refill 01/18/2025 Encounter Details Date Type Department Care Team (Late st Contact Info) Description 01/18/2025 Telephone [facility] MED[facility] 230 [place] [address] Edwige Headley MD 505 [place] [address] Med Refill Social History Tobacco Use Types [...] MG tablet To be sent to: - [facility] - [place], [place] - [address] [facility] documented in this encounter Plan of Treatment Upcoming Encounters Date Type Department Care Team ([facility] st Contact Info) Description 02/21/2025 11:00 AM EDT Clinical Support [facility] MED [facility] PEDS [address] [place] [address] Maria Guadalupe Rodríguez RN 505 [place] [address] documented as of this encounter Goals Goal [...] documented as of this encounter Care Teams Stringed Instrument Repairer Relationship Specialty Start Date End Date Edwige Headley MD [address] [place] [phone] PCP - General Family Medicine 08/21/22 documented as of this encounter
--- OUTSIDE RECORDS SUMMARY | 2025-02-01 16:34 | XMS_ITS | Encounter Summary ---
Author Organization [employer] Address [address] [facility] [address] 7[address] [place] [address] Care Team Providers Care Gis Software Engineer Name Role Phone Edwige Headley MD Primary Care Provider [phone] Reason for Visit * Reason Onset Date Comments PT-1 03/28/2024 Encounter Details Date Type Department Care Team ([facility] st Contact Info) Description 03/28/2024 Telephone [facility] MEDICINE [address] [place] [address] Edwige Headley MD 505 [place] [address] PT-1 Social History Tobacco Use Types Packs/Day [...] Y/N: Yes Provider name or facility name: [facility] Facility Address: [address] [place] [address] Escort needed: Y/N: Yes Do you have a wheelchair: Y/N: No If yes- Manual or electric: (Uses Walker) Visits: Once a month documented in this encounter Plan of Treatment Upcoming Encounters Date Type Department Care Team (Late st Contact Info) Description 02/21/2025 11:00 AM EDT Clinical Support [facility]S 505 [place] [address] Maria Guadalupe Rodríguez RN 505 [place] [address] documented as of this encounter Goals Goal [...] documented as of this encounter Care Teams Gis Software Engineer Relationship Specialty Start Date End Date Edwige Headley MD [address] [place] [address] PCP - General Family Medicine 08/21/22 documented as of this encounter
--- OUTSIDE RECORDS SUMMARY | 2025-02-01 16:34 | XMS_ITS | Encounter Summary ---
Author Organization [employer] Address [address] [facility] 7 [place] [address] Care Team Providers Care Video Game Tester Name Role Phone Edwige Headley MD Primary Care Provider [phone] Reason for Visit * Reason Comments Med Refill Encounter Details Date Type Department Care Team ([facility] st Contact Info) Description 01/15/2025 Refill [facility] CHC MED & PEDS [address] [place], [place] [phone] Radha Renee MD 505 [place] [address] Social History Tobacco Use Types Packs/Day Years [...] 11:00 AM EDT Clinical Support [facility] MED & PEDS 505 [place] [address] Maria Guadalupe Rodríguez, RN 505 [place] [address] documented as of this encounter Goals Goal [...] documented as of this encounter Care Teams Video Game Tester Relationship Specialty Start Date End Date Edwige Headley MD [address] [place] [address] PCP - General Family Medicine 08/21/22 documented as of this encounter
--- OUTSIDE RECORDS SUMMARY | 2025-02-01 16:34 | XMS_ITS | Encounter Summary ---
Author Organization [employer] Address [address] [facility] 7t [place] [address] Care Team Providers Care International Organizer Name Role Phone Edwige Headley MD Primary Care Provider [phone] Encounter Details Date Type Department Care Team (Late st Contact Info) Description 08/03/2024 Orders Only [facility] MEDICINE [address] [place] [address] Radha Renee MD 505 [place] [address] Alzheimer's disease, unspecified (CODE) ([facility]) Social History Tobacco Use Types [...] Clinical Support [facility] CHC MED & PEDS 505 [place] [address] Maria Guadalupe Rodríguez, AC 505 [place] [address] documented as of this encounter Goals Goal Patient Goal Type Associated Problems Recent Progress Patient-Stated? Author Use the inhalers as prescribed by provider; Flovent HFA scheduled and albuterol as needed General No Marcel Garcia, PharmD Take your medication every day Lifestyle No Marcel Garcia, PharmD documented as of this encounter Visit Diagnoses Diagnosis Alzheimer's disease, unspecified (CODE) ([facility]) documented in this encounter Additional Health Concerns Assessment Noted Time PHQ-9 Depression Total Score: 10 024 12:52 PM EDT documented as of this encounter Care Teams International Organizer Relationship Specialty Start Date End Date Edwige Headley MD [address] [place] [address] PCP - General Family Medicine 08/21/22 documented as of this encounter
--- OUTSIDE RECORDS SUMMARY | 2025-02-01 16:34 | XMS_ITS | Encounter Summary ---
Author Organization [employer] Address [address] [facility] [address] 7[address] [place] [address] Care Team Providers Care Military Professional Name Role Phone Edwige Headley MD Primary Care Provider [phone] Reason for Visit * Reason Comments Med Refill Encounter Details Date Type Department Care Team ([facility] st Contact Info) Description 10/16/2023 Refill [facility] CHC MED & PEDS [address] [place], [place] [phone] Edwige Headley MD 505 [place] [address] Social History Tobacco Use Types Packs/Day Years [...] Description 02/21/2025 11:00 AM EDT Clinical Support [facility] MED & PEDS 505 [place] [address] Maria Guadalupe Rodríguez, RN 505 [place] [address] documented as of this encounter Goals Goal [...] documented as of this encounter Care Teams Military Professional Relationship Specialty Start Date End Date Edwige Headley MD [address] [place] [address] PCP - General Family Medicine 08/21/22 documented as of this encounter
--- OUTSIDE RECORDS SUMMARY | 2025-02-01 16:34 | XMS_ITS | Encounter Summary ---
Author Organization [employer] Address [address] 7[address] [place] [address] Care Team Providers Care Director Traffic And Planning Name Role Phone Edwige Headley MD Primary Care Provider [phone] Reason for Visit * Reason Comments Med Refill Encounter Details Date Type Department Care Team ([facility] st Contact Info) Description 08/13/2023 Refill [facility] CHC MED & PEDS 505 [place], [place] [phone] Edwige Headley MD 505 [place] [address] Social History Tobacco Use Types Packs/Day Years [...] 02/21/2025 11:00 AM EDT Clinical Support [facility] MED & PEDS 505 [place] [address] Maria Guadalupe Rodríguez, RN 505 [place] [address] documented as of this encounter Goals Goal [...] as of this encounter Care Teams Director Traffic And Planning Relationship Specialty Start Date End Date Edwige Headley MD [address] [place] [address] PCP - General Family Medicine 08/21/22 documented as of this encounter
--- OUTSIDE RECORDS SUMMARY | 2025-02-01 16:34 | XMS_ITS | Encounter Summary ---
Author Organization [employer] Address [address] [place] [address] Care Team Providers Care Maintenance Truck Driver Name Role Phone Edwige Headley MD Primary Care Provider [phone] Encounter Details Date Type Department Care Team (Latest Contact Info) Description 02/01/2025 Travel Social History Tobacco Use Types Packs/Day [...] Description 02/21/2025 11:00 AM EDT Clinical Support [facility] CHC MED & PEDS 505 [place] [address] Maria Guadalupe Rodríguez, RN 505 [place] [address] documented as of this encounter Goals Goal [...] Noted Time PHQ-9 Depression Total Score: 12 01/12/ 025 3:39 PM EDT documented as of this encounter Care Teams Maintenance Truck Driver Relationship Specialty Start Date End Date Edwige Headley MD [address] [place] [address] PCP - General Family Medicine 08/21/22 documented as of this encounter
--- OUTSIDE RECORDS SUMMARY | 2025-02-01 16:34 | XMS_ITS | Encounter Summary ---
Author Organization [employer] Address [address] 7t [place] [address] Care Team Providers Care Special Education Administrator Name Role Phone Edwige Headley MD Primary Care Provider [phone] Encounter Details Date Type Department Care Team ([facility] st Contact Info) Description 01/30/2025 Telephone [facility] CHC MED & PEDS 505 [place] [address] Maria Guadalupe Rodríguez, RN 505 [place] [address] Social History Tobacco Use Types Packs/Day Years [...] the past 12 months, has t he [employer], gas, oil or water [employer] threatened to shut off services in your [...] TC back to pt via S ID# [id number]. INSURANCE ACCOUNT MANAGER appt scheduled for 02/21/25 @ 11am. documented in this encounter Plan of Treatment Upcoming Encounters Date Type Department Care Team (Late st Contact Info) Description 02/21/2025 11:00 AM EDT Clinical Support [facility] MED & PEDS [address] [place] [address] Maria Guadalupe Rodríguez, RN 505 [place] [address] documented as of this encounter Goals Goal [...] of this encounter Care Teams Special Education Administrator Relationship Specialty Start Date End Date Edwige Headley MD 230 [place] [address] PCP - General Family Medicine 08/21/22 documented as of this encounter
--- OUTSIDE RECORDS SUMMARY | 2025-02-01 16:34 | XMS_ITS | Encounter Summary ---
Author Organization [employer] Address [address] [address] 7t [place] [address] Care Team Providers Care Clinical Implementation Specialist Name Role Phone Edwige Headley MD Primary Care Provider [phone] Reason for Visit * Reason Onset Date Comments Hospital Follow-up 05/25/2024 Encounter Details Date Type Department Care Team ([facility] st Contact Info) Description 05/25/2024 Telephone [facility] MEDICINE [address] [place] [address] Edwige Headley MD [address] [place] [address] Hospital Follow-up Social History Tobacco Use Types [...] from pt requesting a HDF appt. Hospital: [facility] Date of admission: 05/16/2024 Discharge date: 2024 Diagnosed: Discuss with pt. *Send message to [place] Clinical Care Coordinators documented in this encounter Plan of Treatment Upcoming Encounters Date Type Department Care Team (Late st Contact Info) Description 02/21/2025 11:00 AM EDT Clinical Support [facility] CHC MED & PEDS 505 [place] [address] Maria Guadalupe Rodríguez, RN 505 [place] [address] documented as of this encounter Goals Goal [...] documented as of this encounter Care Teams Clinical Implementation Specialist Relationship Specialty Start Date End Date Edwige Headley MD 230 [place] [address] PCP - General Family Medicine 08/21/22 documented as of this encounter
--- OUTSIDE RECORDS SUMMARY | 2025-02-01 16:34 | XMS_ITS | Encounter Summary ---
Author Organization [employer] Address [address] [facility] [address] [facility] [address] 7t [place] [address] Care Team Providers Care Garment Looper Name Role Phone Edwige Headley MD Primary Care Provider [phone] Reason for Visit * Reason Onset Date Comments Appointment Request 04/06/2024 Encounter Details Date Type Department Care Team ([facility] st Contact Info) Description 04/06/2024 Telephone [facility] MEDICINE [address] [place] [address] Edwige Headley MD 505 [place] [address] Appointment Request Social History Tobacco Use Types [...] somewhere else. Contac pt to r/s at [phone] documented in this encounter Plan of Treatment Upcoming Encounters Date Type Department Care Team (Late st Contact Info) Description 02/21/2025 11:00 AM EDT Clinical Support [facility] MED & PEDS 505 [place] [address] Maria Guadalupe Rodríguez, AC 505 [place] [address] documented as of this encounter Goals Goal [...] documented as of this encounter Care Teams Garment Looper Relationship Specialty Start Date End Date Edwige Headley MD 230 [place] [address] PCP - General Family Medicine 08/21/22 documented as of this encounter
--- OUTSIDE RECORDS SUMMARY | 2025-02-01 16:34 | XMS_ITS | Encounter Summary ---
Author Organization [employer] Address [address] [facility] [facility] [address] 7t [place] [address] Care Team Providers Care Wildlife Enforcement Major Name Role Phone Edwige Headley MD Primary Care Provider [phone] Reason for Visit * Reason Onset Date Comments Medical Necessity Form 10/20/2024 Encounter Details Date Type Department Care Team ([facility] st Contact Info) Description 10/20/2024 Telephone [facility] MEDICINE 230 [place] [address] Edwige Headley MD 505 [place] [address] Medical Necessity Form Social History Tobacco Use [...] - 10/20/2024 10:29 AM EDT TC from [facility] with [facility] requesting a medical necessity form regarding a stair lift. She stated that provider agreement is required for processing and requested the form be faxed to [phone]. documented in this encounter Plan of Treatment Upcoming Encounters Date Type Department Care Team ([facility] Contact Info) Description 02/21/2025 11:00 AM EDT Clinical Support [facility] MED & PEDS 505 [place] [address] Maria Guadalupe Rodríguez, RN 505 [place] [address] documented as of this encounter Goals Goal [...] documented as of this encounter Care Teams Wildlife Enforcement Major Relationship Specialty Start Date End Date Edwige Headley MD [address] [place] [address] PCP - General Family Medicine 08/21/22 documented as of this encounter
--- OUTSIDE RECORDS SUMMARY | 2025-02-01 16:34 | XMS_ITS | Encounter Summary ---
Author Organization [email or web address] Address [address] 7t [place] [address] Care Team Providers Care Mountain Bike Guide Name Role Phone Edwige Headley MD Primary Care Provider [phone] Reason for Visit * Reason Onset Date Comments Med Refill 11/13/2024 Encounter Details Date Type Department Care Team ([facility] st Contact Info) Description 11/13/2024 Telephone [facility] MEDICINE 230 [place] [address] Edwige Headley MD 505 [place] [address] Med Refill Social History Tobacco Use Types [...] 50 MG tablet To be sent to: [facility] pharmacy documented in this encounter Plan of Treatment Upcoming Encounters Date Type Department Care Team (Late st Contact Info) Description 02/21/2025 11:00 AM EDT Clinical Support [facility] CHC MED & PEDS 505 [place] [address] Maria Guadalupe Rodríguez, RN 505 [place] [address] documented as of this encounter Goals Goal [...] documented as of this encounter Care Teams Mountain Bike Guide Relationship Specialty Start Date End Date Edwige Headley MD [address] [place] [address] PCP - General Family Medicine 08/21/22 documented as of this encounter
[2025-02-01 16:46] LABS: Alanine Aminotransferase 24 U/L (0-31); Albumin Level 4.8 g/dL (3.5-5.0); Alkaline Phosphatase 82 U/L (39-117); Anion Gap 12 (12-20); Aspartate Amino Transferase 29 U/L (5-31); Blood Urea Nitrogen 17 mg/dL (9-16); Calcium 10.0 mg/dL (8.4-10.2); Carbon Dioxide 33 mmol/L (22-29); Chloride 103 mmol/L (96-108); Cholesterol 134 mg/dL (<200); Estimated Glomerular Filt Rate > 60; HDL Cholesterol 80 mg/dL (>40); Potassium 4.9 mmol/L (3.3-5.1); Sodium 143 mmol/L (135-145); Total Protein 7.7 g/dL (6.5-8.0); Triglycerides 59 mg/dL (<150)
[2025-02-01 17:03] LABS: Ferritin 13 ng/mL (10-250)
[2025-02-01 17:09] LABS: Folate 7.9 ng/mL (> or = 4.0); Vitamin B12 719 pg/mL (200-900)
[2025-02-02 08:58] LABS: HIV Num 1 0.05 S/CO (0.00-0.99)
== END 2025-02-01 14:55 | disposition home or self-care (01) ==
LOC: HO.HHCL 14:54
PROVIDERS: PCP Family Medicine; Visit Provider Family Medicine
DX: M79.604 Pain in right leg (principal); M79.605 Pain in left leg; R53.83 Other fatigue; E08.65 Diabetes mellitus due to underlying condition with hyperglycemia; Z11.4 Encounter for screening for human immunodeficiency virus [HIV]
CPT/HCPCS: 36415; 80053; 80061; 82607; 82728; 82746; 83615; 84443; 85025; 85652; 86140; 87389

== ENCOUNTER 2025-02-28 09:25 | Outpatient (AMB) | payer OTHER, MEDICAID, SELFPAY ==
[2025-02-28 09:27] VITALS: BP 106/60; PULSE 79; BMI 23.2
--- NOTE | 2025-02-28 09:27 | A.OFFVIS_ITS ---
Vital Signs 02/28/25 09:27 Height 5 ft Weight 119 lb 0.794 oz BMI 23.2 BP 106/60 Blood Pressure Location Lt brachial Position Sitting Pulse 79 Intake Visit Reasons: 6 month f/u Intake Note: Ed presents in the office as a 6 month follow up. CC: She had two hand surgeries sinceer last visit. States that she has no concerns today. Quantitative Consultant Required: Yes Allergies pregabalin (From Lyrica) Allergy (Intermediate, Verified 02/28/25 09:32) Rash HPI Comments Details: 77 y.o F with PMH of who is here for refractory GERD . 11/16/22: Pt accompanied by her and daughter. Pt reports heartburn sensation for almost a decade now. Happens after food and associated with nausea. Has led to significant decrease in appetite with resultant weight loss of almost 4 lbs in just last one month. Pain often then localises to RUQ. Has been taking pepcid and carafate - feels that carafate helps more. Also takes Omeprazole 20 PRN. Pt also takes naproxen occasionally for that same abdominal pain. Does not smoke or drink. Has never had an EGD, last colo >10 years ago in [place]. Does not remember if she had polyps. s/p CCY. Of note, also reports spasm in around her umbilicus whenever she laughs or with any sudden movement and is concerned for ? hernia. 12/14/22: Here with her . Reports improvement in abdominal pain however heartburn continues to be an issue despite taking PPI as prescribed now i.e daily at least 30-40 mins before first meal of the day. Continues to use Naproxen frequently. 02/12/23: EGD/colo: ESOPHAGUS: Circular folds noted in the proximal esophagus during intubation - biopsies obtained to check for EOE. GE junction at 34 cms, small hiatal hernia 34 to 36 cms. No esophagitis or Hassan's. STOMACH: Diffuse gastritis DUODENUM: Normal - biopsied to check for celiac sprue Colonoscopy Findings: No polyps were detected Moderate diverticulosis seen in the left colon Small hemorrhoids on retroflexed exam. Path: A. Small bowel, biopsy: Small bowel mucosa with preserved villi and no specific change; no evidence of celiac disease. B. Gastric antrum, biopsy: Gastric antral mucosa with reactive changes and minimal chronic active gastritis; negative for intestinal metaplasia and dysplasia. C. Esophagus, proximal, biopsy: Squamous mucosa with no specific change; no evidence of eosinophilic esophagitis; no columnar mucosa present. 02/26/23: Here for post endoscopy follow up. Seen with bike designer. Reports intermittent R sided discomfort still. Also notices heartburn with nausea some nights despite taking pepcid and then has to take omeprazole on top. Has stopped all nsaids including naproxen. Reviewed results of EGD and colo including non-H pylori gastritis. 03/24/24: Pt called to make this appt for R sided abd pain. Started almost a month ago. Starts out of nowhere lasts for 5 mins. Gets worse on certain positions such as laying down or going from standing to sitting. Had a fall on her R side 2 months ago. Was seen in urgent care for this last month and had rib XRAYS. Results pending. 04/18/24: Here for follow up. Reports improvement of pain. Now pain is mostly in the flank. US Abd results reviewed. Fatty liver noted but normal LFTs which argue against active HOPSON. 1. Status post cholecystectomy. 2. Pancreas not visualized obscured by bowel gas. 3. Increased echogenicity of the liver parenchyma, this can be seen in the setting of hepatic steatosis or liver parenchymal disease. 07/17/24: Accompanied by her daughter. Was set up for follow up for abd pain but mentions severe anal pain. Present x 2 years but prev had not mentioned it due to other issues ongoing. Present most of the time but gets worse when trying to defecate. Pressure like sensation present in the rectum. No rectal bleeding. Is constipated most of the times with significant straining. RUQ pain is resolved. 09/11/24: Here for follow up. Seen with bike designer. Reports improvement in sx since incorporating laxatives and utilizing topical hydrocortisone. bowel habits are regular now. No straining or pain on defecation. Pt also requests refills on gerd meds. Has been taking carafate shelter and advised to DC this and can take tums as needed for break through sx. 02/28/25: Here for follow up. Accompanied by her daughter. Main c/o is reflux sx. She experiences continuous reflux symptoms, at least once a day has heartburn despite taking famotidine 20 twice a day. Uses carafate to mitigate burning sensations. Also reports difficulty in swallowing of small pills. Prev EGD 2022 without any stricture. Bx neg for EoE. PFSH Medical History Atherosclerotic cardiovascular disease PVD (peripheral vascular disease) Breast nodule Urinary incontinence Osteoporosis Dementia in Alzheimer's disease Chronic diastolic (congestive) heart failure Hypertension Vitamin D deficiency Carpal tunnel syndrome Cervical disc disorder CKD (chronic kidney disease), stage II TONY (generalized anxiety disorder) Vertigo CAD (coronary artery disease) GERD (gastroesophageal reflux disease) Migraine Diabetes mellitus Asthma Surgical History H/O hand surgery Hx of cardiac catheterization History of hernia repair History of left inguinal hernia repair History of right inguinal hernia repair History of cholecystectomy Hx of colonoscopy History of esophagogastroduodenoscopy (EGD) Family History Mother Heart problem Arthritis Social History Household Members: Spouse, Family and Children Housing: House Alcohol intake: never Patient Tobacco Use Status: Never used Tobacco Second Hand Smoke Exposure: No service: No Review of Systems Const All systems reviewed & are unremarkable except as noted in HPI and below Physical Exam Exam Exam: No apparent distress Nonicteric Abdomen soft, nondistended Alert and oriented x3, normal gait Vital Signs: Last Vital Signs Pulse 79 02/28/25 09:27 BP 106/60 02/28/25 09:27 BMI result Body Mass Index 23.2 Assessment & Plan Assessment & Plan (1) Chronic heartburn: Code(s): R12 - Heartburn Category: Medical (2) Dysphagia: Code(s): R13.10 - Dysphagia, unspecified Category: Medical (3) Chronic idiopathic constipation: Code(s): K59.04 - Chronic idiopathic constipation Category: Medical Plan 1. GERD 2. Pill dysphagia Mostly has post prandial pyrosis. EGD 2022 and bx reviewed. Counseled to avoid using carafate assisted. Can use TUMS as needed. Also reports difficulty swallowing pills and hard textured foods. Plan: - Cont famotidine 20 mg BID for round the clock control - ok to take tums as needed for break through symptoms - EGD to be booked with possible dilation 3. Constipation is well controlled with current regimen. Refills sent for senna and miralax. follow up after EGD Orders: Referrals GI Procedure Notification R13.10 - Dysphagia, unspecified Medications: New polyethylene glycol 3350 (Miralax) 17 grams PO DAILY 238 grams 1RF famotidine 20 mg PO BID 180 tabs 1RF 90 days Refilled polyethylene glycol 3350 (Miralax) 17 grams PO DAILY PRN 238 grams 0RF constipation 90 days sennosides (senna) 8.6 mg PO DAILY 90 tabs 1RF Patient Instructions: - Cont famotidine twice a day - Can take TUMS if needed for heartburn if needed - We will set up an endoscopy to evaluate for difficulty swallowing - Please remember to NOT skip your inhalers the morning of the procedure Coding Level of Care Code Est Pt Level 4 (05698) Diagnoses Chronic heartburn R12 Dysphagia R13.10 Chronic idiopathic constipation K59.04
--- OUTSIDE RECORDS SUMMARY | 2025-02-28 10:38 | XMS_ITS | Encounter Summary ---
Author Organization [employer] Address [address] [address] [facility] [facility] [address] 7t [place] [address] Care Team Providers Care Energy Conservation Technician Name Role Phone Edwige Headley MD Primary Care Provider [phone] Reason for Visit * Reason Onset Date Comments Med Refill 01/18/2025 Encounter Details Date Type Department Care Team (Late st Contact Info) Description 01/18/2025 Telephone [facility] MEDICINE 230 [place] [address] Edwige Headley MD 505 [place] [address] Med Refill Social History Tobacco Use Types [...] MG tablet To be sent to: - [facility] - [place], [place] - [address] [facility] documented in this encounter Plan of Treatment Upcoming Encounters Date Type Department Care Team ([facility] st Contact Info) Description 04/26/2025 11:00 AM EST Clinical Support [facility] MED & PEDS 505 [place] [address] Maria Guadalupe Rodríguez, AC [address] [place] [address] documented as of this encounter Goals Goal [...] documented as of this encounter Care Teams Energy Conservation Technician Relationship Specialty Start Date End Date Edwige Headley MD 230 [place] [address] PCP - General Family Medicine 08/21/22 documented as of this encounter
--- OUTSIDE RECORDS SUMMARY | 2025-02-28 10:39 | XMS_ITS | Clinical Summary ---
Author Organization [employer] Address [address] [facility] [address] [place] [address] Care Team Providers Care Panel Machine Operator Name Role Phone Edwige Headley MD Primary Care Provider [phone] Allergies Active Allergy Reactions Criticality Noted Date [...] each 023 Active Lancets (OneTouch Delica Plus [id number]) misc 1 Units in the morning. Please [...] MOUTH THREE TIMES DAILY 90 capsule Active Aspirin Low Dose 81 MG EC [...] IN 8 OUNCES OF WATER ONCE DAILY 03/03/2 025 Active Xiidra 5 % solution instill 1 drop in each eye twice daily Active Restasis 0.05 % ophthalmic emulsion instill 1 drop in each eye twice daily Active cyclobenzaprine (Flexeril) 10 MG tabletIndicatio ns:Fibromyalgia TAKE 1 TABLET BY MOUTH THREE TIMES DAILY FOR 10 DAYS 30 tablet Active naloxone (Narcan) 4 mg/0.1 mL nasal spray Administer 1 spray (4 mg) into affected nostril(s) if needed for opioid reversal. May repeat every 2-3 minutes if needed, alternating nostrils, until medical assistance becomes available. 2 each 2025 Active Diclofenac Sodium 1 % gelIndications: Acute left-sided low back pain without sciatica APPLY 2 GRAMS TOPICALLY TO AFFECTED AREA(S) THREE TIMES DAILY 100 g 2 025 Active famotidine (Pepcid) 40 MG tablet TAKE 1 TABLET BY MOUTH AT BEDTIME 90 tablet 1 Active Nobel HygieneTouch Ultra Test test strip USE DIRECTED TO TEST BLOOD SUGAR THREE TIMES DAILY 100 strip 11 025 Active estradiol (Estrace) 0.1 MG/GM vaginal cream [...] mouth 3 times daily. 270 tablet 1 025 Active montelukast (Singulair) 10 MG tablet Take 1 tablet (10 mg) by mouth at bedtime. 90 tablet 1 025 Active calcium carbonate 1500 (600 Ca) MG tablet Take 1 tablet (1,500 mg) by mouth with breakfast and with evening meal. 180 tablet 1 025 Active magnesium 250 MG tabletIndicatio ns:Pain in both lower extremities 1 tab po at bedtime prn leg discomfort at night 30 tablet 2 025 Active celecoxib (CeleBREX) 100 MG capsuleIndicati ons:Fibromyalgi a TAKE 1 CAPSULE BY MOUTH TWICE DAILY 60 capsule 1 025 Active memantine (Namenda) 5 MG tabletIndicatio ns:Alzheimer's disease, unspecified (CODE) ([facility]) TAKE 1 TABLET BY MOUTH TWICE DAILY IN THE MORNING AND IN THE EVENING 60 tablet 2 Active losartan (Cozaar) 25 MG tablet TAKE 1 TABLET BY MOUTH EVERY MORNING 90 tablet 1 Active TRUEplus Lancets 33G miscIndications :Type 2 diabetes mellitus with hyperglycemia, without long-term current use of insulin ([facility]) USE THREE TIMES DAILY TO TEST BLOOD SUGAR DIRECTED 100 each 3 Active traMADol (Ultram) 50 MG tabletIndicatio ns:Fibromyalgia TAKE 1 TABLET BY MOUTH qmhs NEEDED FOR SEVERE PAIN 56 tablet Active sucralfate (Carafate) 1 GM/10ML suspension TAKE 10mls BY MOUTH EVERY 8 HOURS NEEDED WITH FOOD 900 mL 1 Active losartan (Cozaar) 25 MG tablet TAKE 1 TABLET BY MOUTH EVERY MORNING 90 tablet 1 025 2024 Discontinued(R eorder (will not trigger notification to Pharmacy)) memantine (Namenda) 5 MG tabletIndicatio ns:Alzheimer's disease, unspecified (CODE) ([facility]) TAKE 1 TABLET BY MOUTH TWICE DAILY IN THE MORNING AND IN THE EVENING 60 tablet 2 025 2024 Discontinued celecoxib (CeleBREX) 100 MG capsuleIndicati ons:Fibromyalgi a TAKE 1 CAPSULE BY MOUTH TWICE DAILY 60 capsule 1 025 2024 Discontinued sucralfate (Carafate) 1 GM/10ML suspension TAKE 10 ML BY MOUTH EVERY 8 HOURS NEEDED WITH FOOD 900 mL 1 025 2024 Discontinued traMADol (Ultram) 50 MG tabletIndicatio ns:Fibromyalgia Take 1 tablet (50 mg) by mouth if needed in the morning and at bedtime for severe pain for up to 28 days. 56 tablet 025 2024 Discontinued Active Problems Problem [...] the stair lift request. Asthma-COPD overlap syndrome (CMS/HCC) Assessment & Plan (09/28/2024 10:09 AM EDT): Patient's COPD symptoms are worsening, with increasing limitation in breathing becoming more continuous. She experiences dyspnea on exertion, particularly when climbing stairs. Currently on Trelegy , which was prescribed by a maintenance mechanic 2nd shift. Oxygen saturation appears stable at rest, but there is a need to assess for desaturation with ambulation. Plan: - Continue Trelegy 262.5/25 as prescribed by maintenance mechanic 2nd shift - Assess oxygen saturation with ambulation - Consider low-dose chronic steroids (to be discussed with maintenance mechanic 2nd shift) - Follow up with maintenance mechanic 2nd shift on the of the current month Bilateral [...] swallow test came back normal. Referred to grain merchandising manager Assessment & Plan (07/20/2023 9:51 PM EST): [...] be prescribed steroids. Recommended patient to call Hr Representative to schedule an appointment to get further assistance. Alzheimer's dementia ([facility]) 08/21/2022 Assessment & Plan (03/16/2024 2:25 PM [...] Center 10/18/2023 3:30 PM Edwige Headley MD [facility] Assessment & Plan (03/19/2023 3:58 PM [...] and daughter. PLAN: 1. Follow up with [facility]: Not recommended for follow-up 2. Patient goal is to be able to manage her symptoms without medication. 3. Behavioral Recommendations a. Referral to Ind. therapy b. Practice of Coping skills for Anxiety c. Contact this bond underwriter for support as needed Encounters Date Type Department Care Team Description 02/24/2025 Refill [facility] [address] [place] [address] Teressa Maher MD 02/21/2025 11:00 AM EDT Clinical Support [facility] [address] [place] [address] Maria Guadalupe Rodríguez RN Long-term current use of opiate analgesic (Primary Dx) 02/21/2025 Travel 02/21/2025 Telephone [facility] [address] [place] [address] Maria Guadalupe Rodríguez RN 02/16/2025 Refill [facility] [address] [place] [address] Edwige Headley MD Fibromyalgia 02/07/2025 Refill [facility] [address] [place] [address] Teressa Maher MD 02/06/2025 Refill [facility] [address] [place] [phone] Teressa Maher MD Type 2 diabetes mellitus with hyperglycemia, without long-term current use of insulin ([facility]) 02/03/2025 Refill [facility] [address] [place] [address] Edwige Headley MD Fibromyalgia; Alzheimer's disease, unspecified (CODE) ([facility]) 02/02/2025 Results Follow-Up [facility] [address] [place] [phone] Viviana Lou MD Ferritin, Vitamin B12/Folate, Serum Panel 02/01/2025 2:20 PM EDT Office Visit [facility] [address] [place] [phone] Viviana Lou MD Pain in both lower extremities (Primary Dx) 02/01/2025 Travel 01/30/2025 Telephone [facility] [address] [place] [address] Maria Guadalupe Rodríguez RN 01/24/[address] [address] Edwige Headley MD Appointment Request 01/18/2025 Refill [facility] [address] [place] [address] Edwige Headley MD Fibromyalgia 01/18/[address] [address] Edwige Headley MD Med Refill 01/17/2025 Refill [facility] [address] [place] [address] Radha Renee MD 01/16/2025 Refill [facility] [address] [place] [phone] Edwige Headley MD 01/15/2025 Refill [facility] [address] [place] [address] Radha Renee MD 01/12/2025 3:15 PM EDT Office Visit [facility] [address] [place] [address] Edwige Headley MD Iliotibial band syndrome, left (Primary Dx); Atrophic vaginitis 01/12/2025 Travel 01/11/2025 Telephone [facility] [address] [place] [address] Edwige Headley MD Chart Prep 01/05/2025 Patient Outreach [address] [address] Edwige Headley MD Pre-visit Planning ([facility] screening completed on 09/19/24 ) 12/25/2024 Refill [facility] [address] [place] [address] Robert High MD 12/25/2024 Refill [facility] [address] [place], [place] [phone] Edwige Headley MD 12/21/2024 Refill [facility] [address] [place], [place] [phone] Edwige Headley MD Fibromyalgia (Primary Dx) 12/19/2024 Refill [facility] [address] [place], [place] [phone] Maryuri Miller FNP 11/30/2024 9:15 AM EDT Office Visit [facility] [address] [place], [place] [phone] Radha Renee MD Acute left-sided low back pain without sciatica (Primary Dx); Diabetes mellitus due to underlying condition with hyperglycemia, without long-term current use of insulin ([facility]) 11/30/2024 Travel 11/28/2024 Refill [facility] [address] [place], [place] [phone] Edwige Headley MD Fibromyalgia 11/28/2024 Telephone [facility] [address] [place], [place] [phone] dEwige Hedaley MD Nurse Triage from Last 3 Months Immunizations Immunization Administration [...] Care Team (Late st Contact Info) Description 04/26/2025 11:00 AM EST Clinical Support [facility] [address] [place] [address] Maria Guadalupe Rodríguez RN [address] [place] [address] Health Maintenance Due Date Last Done Comments Eye Exam 1955 COVID-19 Vaccine ( season) 2025 07/20/2023 Influenza Vaccine (#1) 2025 , 07/20/2023, 01/02/2022 Diabetes: Hemoglobin A1C 03/30/2025 025, 05/30/2024, 08/30/2023, Additional history exists Diabetes: Foot Exam 06/19/2025 06/19/2024, 06/19/2024, 06/19/2024, Additional history exists Depression Monitoring 07/14/2025 01/12/2025, 025 Diabetes: Urine Protein Screening 07/18/2025 07/18/2024, 08/21/2022 SDOH Screening 09/19/2025 09/19/2024 Alcohol/Substance Use Screening 01/12/2026 01/12/2025 Lipid Panel 02/01/2026 02/01/2025, 08/15, 08/21/2022 Tobacco Screening 02/01/2026 02/01/2025 DTaP/Tdap/Td Vaccines (2 [...] Comments POCT SENAIT-14 URINE DRUG SCREEN Routine 02/21/2025 10:59 AM EDT Long-term current use of opiate analgesic TSH W/REFLEX TO FT4 Routine 02/01/2025 3 :30 PM EDT Other fatigue VITAMIN B12/FOLATE, SERUM PANEL Routine 02/01/2025 2:59 PM EDT Pain in both lower extremities FERRITIN Routine 02/01/2025 2:59 PM EDT Pain in both lower extremities LIPID PANEL, STANDARD Routine 02/01/2025 2:59 PM EDT Diabetes mellitus due to underlying condition with hyperglycemia, without long-term current use of insulin ([facility]) HIV 1/2 ANTIGEN/ANTIBODY, FOURTH GENERATION W/RFL Routine 02/01/2025 2:59 PM EDT Other fatigue LD Routine 02/01/2025 2:59 PM EDT Other fatigue COMPREHENSIVE METABOLIC PANEL Routine 02/01/2025 2:59 PM EDT Other fatigue C-REACTIVE PROTEIN Routine 02/01/2025 2: 59 PM EDT Other fatigue SED RATE BY MODIFIED WESTERGREN Routine 02/01/2025 2:59 PM EDT Other fatigue CBC WITH AUTO DIFFERENTIAL Routine 02/01/2025 2:59 PM EDT Other fatigue POCT GLUCOSE Routine 11/30/2024 9:44 AM EDT Diabetes mellitus due to underlying condition with hyperglycemia, without long-term current use of insulin (CMS/HCC) POCT GLYCATED HEMOGLOBIN, TOTAL Routine 09/27/2024 3:04 PM EDT Diabetes mellitus due to underlying condition with hyperglycemia, without long-term current use of insulin (CMS/HCC) ALBUMIN, RANDOM URINE W/CREATININE Routine 07/18/2024 9:57 AM EST Type 2 diabetes mellitus with hyperglycemia, without long-term current use of insulin (CMS/HCC) HEPATITIS C AB W/REFL TO HCV RNA, QN, PCR Routine 07/07/2024 9:23 AM EST Chronic diastolic heart failure (CMS/HCC) from Last 3 Months or Most Recently Relevant to Health Maintenance Results * (ABNORMAL) POCT SENAIT-14 Urine Drug Screen (02/21/2025 10:59 AM EDT) THC Positive(A) Negative Cocaine Screen, Urine Negative Negative Opiate [...] obtained by clean catch procedure / Unknown 02/21/2025 10:59 AM EDT Narrative Maria Guadalupe Rodríguez RN - 02/21/2025 10:59 AM EDT . Internal Pass Control Lot# [id number] Exp: 03-16-26 us Edwige Headley MD POINT OF CARE TEST ENTER/EDIT ORDERABLES Final Result * TSH W/Reflex to FT4 (02/01/2025 3:30 PM EDT) Pathologist [facility] TSH reflex Free T4 0.89 0.32 - 4.0 uIU/mL [facility] Blood Venous blood specimen / Unknown 02/01/2025 3:30 PM EDT 02/01/2025 4:03 PM EDT Edwige Headley MD LAB BLOOD ORDERABLES Final Re sult Performing Organization Address [facility]/ZIP Co de Phone Number [facility] [address] [place] [phone] * Vitamin B12/Folate, Serum Panel (02/01/2025 2:59 PM EDT) [facility] Vitamin B12 719 200 - 900 pg/mL [facility] Comment:NORMAL 200-900 PG/ML INDETERMINATE 160-199 PG/ML DEFICIENT < 160 PG/ML Folate 7.9 > or = 4.0 ng/mL [facility] Comment:Reference Values:> o r = 4.0 ng/mL< 4.0 ng/mL suggests folate deficiency Methotrexate, aminopterin and folinic acid(leucovorin) are chemotherapeutic agents whose molecularstructures are similar to folate; therefore, the Architectfolate assay cannot be used for patients using these drugs. Blood Venous blood specimen / Unknown 02/01/2025 2:59 PM EDT 02/01/2025 4:03 PM EDT us Viviana Lou MD LAB BLOOD ORDERABLES Final Result Performing Organization Address [facility] Co de Phone Number [facility] [address] [place] [phone] * (ABNORMAL) CBC auto differential (02/01/2025 2:59 PM EDT) [facility] White Blood Count 8.1 4.8 - 10.8 X10*3/uL [facility] Red Blood Count 4.28 4.20 - 5.50 X10*6/uL [facility] Hemoglobin 12.7 12.0 - 16.0 g/dl [facility] Hematocrit 37.7 37.0 - 47.0 % [facility] Mean Corpuscular Volume 88.1 80.0 - 98.0 fL [facility] Mean Corpuscular Hemoglobin 29.7 27.0 - 33.0 pg [facility] Mean Corpuscular HGB Conc 33.7 31.0 - 35.0 g/dl [facility] Red Cell Distribution Width 15.1 11.0 - 16.0 % [facility] Platelet Count 232 160 - 400 X10*3/uL [facility] Mean Platelet Volume 11.2 9.4 - 12.3 fL [facility] Neutrophils Percent Auto 58.3 45 - 73 % [facility] Imm Gran Pct Auto 0.4 0.0 - 0.4 % [facility] Lymphocytes Percent Auto 28.0 20 - 40 % [facility] Monocytes Percent Auto 12.2(H) 2 - 11 % [facility] Eosinophils Percent Auto 0.6 0 - 4 % [facility] Basophils Percent Auto 0.5 0 - 2 % [facility] NRBC Pct Auto 0.0 0.0 - 0.2 /100WBC [facility] Neutrophils Absolute Auto 4.7 2.0 - 8.3 x10*3/uL [facility] Imm Gran Abs Auto 0.03 0.00 - 0.03 X10*3/uL [facility] Lymphocytes Absolute Auto 2.3 1.2 - 4.9 X10*3/uL [facility] Monocytes Absolute Auto 1.0 0.1 - 1.2 X10*3/uL [facility] Eosinophils Absolute Auto 0.1 0.0 - 0.4 X10*3/uL [facility] Basophils Absolute Auto 0.0 0.0 - 0.2 X10*3/uL [facility] NRBC Abs Auto 0.000 0.0 - 0.012 X10*3/uL [facility] Blood Venous blood specimen / Unknown 02/01/2025 2:59 PM EDT 02/01/2025 4:03 PM EDT Edwige Headley MD LAB BLOOD ORDERABLES Final Re sult Performing Organization Address [facility] Co de Phone Number [facility] [address] [place] [phone] * HIV-1/2 Antigen and Antibodies, Fourth Generation, with Reflexes (02/01/2025 2:59 PM EDT) Pathologist [facility] HIV AB/AG Nonreactive Nonreactive [facility] Comment:HIV-1 p24 Ag and/or HIV-1/HIV-2 Ab not detected.A test result that is nonreactive does not exclude thepossibility of exposure to or infection with HIV-1 and/orHIV-2. Nonreactive results in this assay for individualswith prior exposure to HIV-1 and/or HIV-2 may be due toantigen and antibody levels that are below the limit ofdetection of this assay.The [employer] HIV Ag/Ab Combo assay result andsupplemental assay results should be interpreted inconjunction with the patient's clinical presentation,history and other laboratory results. If the results areinconsistent with clinical evidence, additional testing issuggested to confirm the result. Blood Venous blood specimen / Unknown 02/01/2025 2:59 PM EDT 02/01/2025 4:03 PM EDT Edwige Headley MD LAB BLOOD ORDERABLES Final Re sult Performing Organization Address City/[facility]/ZIP Co de Phone Number [facility] [address] [place] [address] [phone] * Sed Rate by Modified Reanna (02/01/2025 2:59 PM EDT) [facility] Erythrocyte Sedimentation Rate 11 0 - 20 MM/HR [facility] Comment:Patients with polycy themia and many hemoglobin abnormalitiesmay have depressed sed rates whereas patients with anemiamay have elevated sed rates. Blood Venous blood specimen / Unknown 02/01/2025 2:59 PM EDT 02/01/2025 4:14 PM EDT Edwige Headley MD LAB BLOOD ORDERABLES Final Re sult Performing Organization Address [facility] Co de Phone Number [facility] [address] [place] [phone] * C-reactive Protein (02/01/2025 2:59 PM EDT) C Reactive Protein <0.04 < or = 0.50 mg/dL [facility] Blood Venous blood specimen / Unknown 02/01/2025 2:59 PM EDT 02/01/2025 4:03 PM EDT Edwige Headley MD LAB BLOOD ORDERABLES Final Re sult Performing Organization Address [facility] Co vt Phone Number [facility] [address] [place] [phone] * Lactate Dehydrogenase (LD) (02/01/2025 2:59 PM EDT) Lactate Dehydrogenase 188 122 - 220 U/L [facility] Blood Venous blood specimen / Unknown 02/01/2025 2:59 PM EDT 02/01/2025 4:03 PM EDT Edwige Headley MD LAB BLOOD ORDERABLES Final Re sult Performing Organization Address [facility] Co de Phone Number [facility] [address] [place] [phone] * Ferritin (02/01/2025 2:59 PM EDT) Ferritin 13 10 - 250 ng/mL [facility] Blood Venous blood specimen / Unknown 02/01/2025 2:59 PM EDT 02/01/2025 4:03 PM EDT Viviana Lou MD LAB BLOOD ORDERABLES Final Result Performing Organization Address [facility] Co de Phone Number [facility] [address] [place] [address] [phone] * Lipid Panel, Standard (02/01/2025 2:59 PM EDT) Triglycerides 59 <150 mg/dL [facility] Comment:Desirable Triglyceri de: less than 150 mg/dLBorderline High Triglyceride 150-199 mg/dLHigh Triglyceride: 200-499 mg/dLVery High Triglyceride: greater than or equal to 5OO mg/dL Cholesterol 134 <200 mg/dL [facility] Comment:Desirable Cholestero l: less than 200 mg/dLBorderline High Cholesterol: 200-239 mg/dLHigh Cholesterol: greater than 239 mg/dL LDL Cholesterol Calculated 43 <100 mg/dL [facility] Comment:Desirable LDL: less than 100 mg/dLNear Optimal/Above Optimal LDL: 110- 129 mg/dLBorderline High LDL: 130-159 mg/dLHigh LDL: 160-189 mg/dLVery High LDL: greater than or equal to 190 mg/dL HDL Cholesterol 80 >40 mg/dL [facility] Comment:Desirable HDL: great er than 40 mg/dL Note: This HDL assay may give artificially low results in patients with liver disease. Blood Venous blood specimen / Unknown 02/01/2025 2:59 PM EDT 02/01/2025 4:03 PM EDT Edwige Headley MD LAB BLOOD ORDERABLES Final Re sult Performing Organization Address City/[facility]/ZIP Co de Phone Number [facility] [address] [place] [phone] * (ABNORMAL) Comprehensive Metabolic Panel (02/01/2025 2:59 PM EDT) Sodium 143 135 - 145 mmol/L [facility] Potassium 4.9 3.3 - 5.1 mmol/L [facility] Chloride 103 96 - 108 mmol/L [facility] Carbon Dioxide 33(H) 22 - 29 mmol/L [facility] Anion Gap 12 12 - 20 [facility] Urea Nitrogen (BUN) 17(H) 9 - 16 mg/dL [facility] Creatinine, Serum 0.76 0.5 - 1.4 mg/dL [facility] Estimated Glomerular Filt Rate >60 [facility] Comment:Chronic Kidney Disea se: Estimated GFR < 60 mL/min/1.22v7Vxboov Kidney Disease: Estimated GFR < 15 mL/min/1.73m2 Glucose 123(H) 60 - 115 mg/dL [facility] Calcium 10.0 8.4 - 10.2 mg/dL [facility] Bilirubin, Total 0.7 0.0 - 1.0 mg/dL [facility] Aspartate Amino Transferase 29 5 - 31 U/L [facility] Alanine Aminotransferase 24 0 - 31 U/L [facility] Total Protein 7.7 6.5 - 8.0 g/dL [facility] Albumin Level 4.8 3.5 - 5.0 g/dL [facility] Alkaline Phosphatase 82 39 - 117 U/L [facility] Blood Venous blood specimen / Unknown 02/01/2025 2:59 PM EDT 02/01/2025 4:03 PM EDT us Edwige Headley MD LAB BLOOD ORDERABLES Final Re sult [facility] [address] [place] [phone] * POCT Glucose (11/30/2024 9:44 AM EDT) Glucose Blood, POC 134 60 - 200 mg/dL QC Media Lot # [id number] Lot# Expiration Date Blood Capillary blood specimen / Unknown 11/30/2024 9:44 AM EDT us Radha Renee MD POINT OF CARE [...] 9:57 AM EST) Creatinine, Urine 47.58 mg/dL [facility] Microalbumin Urine 13.0 mg/L [facility] Microalbum Creatinine Ratio Ur 27.3 <30 ug/mg cr [facility] Comment:Albumin/Creatinine R atio Reference Ranges: Normal: < 30 ug/mg creatinine Microalbuminuria: 30 - 300 ug/mg creatinineClinical Albuminuria: > 300 ug/mg creatinine Urine (Urine, Random) 07/18/2024 9:57 AM EST 07/18/2024 2:15 PM EST Radha Renee MD LAB URINE ORDERABLES Final Result Performing Organization Address [facility] Co de Phone Number [facility] [address] [place] [address] [phone] * Hepatitis C Antibody with Reflex to HCV, RNA, Quantitative, Real-Time PCR (07/07/2024 9:23 AM EST) Hepatitis C Antibody Nonreactive Nonreactive [facility] Comment:Antibodies to HCV no t detected; does not exclude early acuteHCV infection. Blood Venous blood specimen / Unknown 07/07/2024 9:23 AM EST 07/07/2024 1:55 PM EST us Radha Renee MD LAB BLOOD ORDERABLES Final Result [facility] [address] [place] [address] [phone] from Last 3 Months or Most Recently Relevant to Health Maintenance [facility] Care Teams Panel Machine Operator Relationship Specialty Start Date End Date Edwige Headley MD [address] [place] [phone] PCP - General Family Medicine 08/21/22
--- OUTSIDE RECORDS SUMMARY | 2025-02-28 10:39 | XMS_ITS | Encounter Summary ---
Author Organization [employer] Address [address] [facility] 7 [place] [address] Care Team Providers Care Trimming Assembler Name Role Phone Edwige Headley MD Primary Care Provider [phone] Reason for Visit * Reason Comments Med Refill Encounter Details Date Type Department Care Team ([facility] st Contact Info) Description 01/15/2025 Refill [facility] [address] [place], [place] [phone] Radha Renee MD [address] [place] [address] Social History Tobacco Use Types Packs/Day Years [...] Description 04/26/2025 11:00 AM EST Clinical Support [facility] [address] [place] [address] Maria Guadalupe Rodríguez, RN [address] [place] [address] documented as of this encounter Goals Goal [...] as of this encounter Care Teams Trimming Assembler Relationship Specialty Start Date End Date Edwige Headley MD [address] [place] [address] PCP - General Family Medicine 08/21/22 documented as of this encounter
--- OUTSIDE RECORDS SUMMARY | 2025-02-28 10:39 | XMS_ITS | Encounter Summary ---
Author Organization [employer] Address [address] 7t [place] [address] Care Team Providers Care Engraver Picture Name Role Phone Edwige Headley MD Primary Care Provider [phone] Reason for Visit * Reason Onset Date Comments Appointment Request 04/06/2024 Encounter Details Date Type Department Care Team ([facility] st Contact Info) Description 04/06/2024 Telephone [facility] MEDICINE 230 [place] [address] Edwige Headley MD 505 [place] [address] Appointment Request Social History Tobacco Use Types [...] somewhere else. Contac pt to r/s at [phone] documented in this encounter Plan of Treatment Upcoming Encounters Date Type Department Care Team (Late st Contact Info) Description 04/26/2025 11:00 AM EST Clinical Support [facility] MED & PEDS 505 [place] [address] Maria Guadalupe Rodríguez, RN 505 [place] [address] documented as of this encounter Goals Goal [...] documented as of this encounter Care Teams Engraver Picture Relationship Specialty Start Date End Date Edwige Headley MD 230 [place] [address] PCP - General Family Medicine 08/21/22 documented as of this encounter
--- OUTSIDE RECORDS SUMMARY | 2025-02-28 10:39 | XMS_ITS | Encounter Summary ---
Author Organization [employer] Address [address] 7t [place] [address] Care Team Providers Care Storeroom Clerk Name Role Phone Edwige Headley MD Primary Care Provider [phone] Reason for Visit * Reason Onset Date Comments Med Refill 11/13/2024 Encounter Details Date Type Department Care Team ([facility] st Contact Info) Description 11/13/2024 Telephone [facility] MEDICINE 230 [place] [address] Edwige Headley MD 505 [place] [address] Med Refill Social History Tobacco Use Types [...] 50 MG tablet To be sent to: [facility] pharmacy documented in this encounter Plan of Treatment Upcoming Encounters Date Type Department Care Team (Late st Contact Info) Description 04/26/2025 11:00 AM EST Clinical Support [facility] MED & PEDS 505 [place] [address] Maria Guadalupe Rodríguez, RN 505 [place] [address] documented as of this encounter Goals Goal [...] documented as of this encounter Care Teams Storeroom Clerk Relationship Specialty Start Date End Date Edwige Headley MD 230 [place] [address] PCP - General Family Medicine 08/21/22 documented as of this encounter
--- OUTSIDE RECORDS SUMMARY | 2025-02-28 10:39 | XMS_ITS | Encounter Summary ---
Author Organization [employer] Address [address] 7t [place] [address] Care Team Providers Care Computer Tester Name Role Phone Edwige Headley MD Primary Care Provider [phone] Reason for Visit * Reason Comments Med Refill Encounter Details Date Type Department Care Team ([facility] st Contact Info) Description 08/13/2023 Refill [facility] CHC MED & PEDS 505 [place], [place] [phone] Edwige Headley MD 505 [place] [address] Social History Tobacco Use Types Packs/Day Years [...] Description 04/26/2025 11:00 AM EST Clinical Support [facility] MED & PEDS 505 [place] [address] Maria Guadalupe Rodríguez, RN 505 [place] [address] documented as of this encounter Goals Goal [...] documented as of this encounter Care Teams Computer Tester Relationship Specialty Start Date End Date Edwige Headley MD 230 [place] [address] PCP - General Family Medicine 08/21/22 documented as of this encounter
--- OUTSIDE RECORDS SUMMARY | 2025-02-28 10:39 | XMS_ITS | Encounter Summary ---
Author Organization [employer] Address [address] 7t [place] [address] Care Team Providers Care Warp Doffer Name Role Phone Edwige Headley MD Primary Care Provider [phone] Reason for Visit * Reason Onset Date Comments Hospital Follow-up 05/25/2024 Encounter Details Date Type Department Care Team ([facility] st Contact Info) Description 05/25/2024 Telephone [facility] MEDICINE 230 [place] [address] Edwige Headley MD [address] [place] [address] Hospital Follow-up Social History Tobacco Use Types [...] from pt requesting a HDF appt. Hospital: [facility] Date of admission: 05/16/2024 Discharge date: 2024 Diagnosed: Discuss with pt. *Send message to [facility] Clinical Care Coordinators documented in this encounter Plan of Treatment Upcoming Encounters Date Type Department Care Team (Late st Contact Info) Description 04/26/2025 11:00 AM EST Clinical Support [facility] CHC MED & PEDS 505 [place] [address] Maria Guadalupe Rodríguez, RN 505 [place] [address] documented as of this encounter Goals Goal [...] documented as of this encounter Care Teams Warp Doffer Relationship Specialty Start Date End Date Edwige Headley MD [address] [place] [address] PCP - General Family Medicine 08/21/22 documented as of this encounter
--- OUTSIDE RECORDS SUMMARY | 2025-02-28 10:39 | XMS_ITS | Encounter Summary ---
Author Organization [employer] Address [address] 7t [place] [address] Care Team Providers Care Iron Guardrail Installer Name Role Phone Edwige Headley MD Primary Care Provider [phone] Reason for Visit * Reason Onset Date Comments Medical Necessity Form 10/20/2024 Encounter Details Date Type Department Care Team ([facility] st Contact Info) Description 10/20/2024 Telephone [facility] MEDICINE 230 [place] [address] Edwige Headley MD 505 [place] [address] Medical Necessity Form Social History Tobacco Use [...] - 10/20/2024 10:29 AM EDT TC from [facility] with [facility] requesting a medical necessity form regarding a stair lift. She stated that provider agreement is required for processing and requested the form be faxed to [phone]. documented in this encounter Plan of Treatment Upcoming Encounters Date Type Department Care Team ([facility] Contact Info) Description 04/26/2025 11:00 AM EST Clinical Support [facility] MED & PEDS 505 [place] [address] Maria Guadalupe Rodríguez, RN 505 [place] [address] documented as of this encounter Goals Goal [...] documented as of this encounter Care Teams Iron Guardrail Installer Relationship Specialty Start Date End Date Edwige Headley MD 230 [place] [address] PCP - General Family Medicine 08/21/22 documented as of this encounter
--- OUTSIDE RECORDS SUMMARY | 2025-02-28 10:39 | XMS_ITS | Encounter Summary ---
Author Organization [employer] Address [address] [facility] 7 [place] [address] Care Team Providers Care Mechanical Insulator Name Role Phone Edwige Headley MD Primary Care Provider [phone] Reason for Visit * Reason Comments Med Refill Encounter Details Date Type Department Care Team ([facility] st Contact Info) Description 10/23/2024 Refill [facility] CHC MED & PEDS 505 [place], [place] [phone] Radha Renee MD 505 [place] [address] Social History Tobacco Use Types Packs/Day Years [...] 04/26/2025 11:00 AM EST Clinical Support [facility] MED & PEDS 505 [place] [address] Maria Guadalupe Rodríguez, RN 505 [place] [address] documented as of this encounter Goals Goal [...] as of this encounter Care Teams Mechanical Insulator Relationship Specialty Start Date End Date Edwige Headley MD 230 [place] [address] PCP - General Family Medicine 08/21/22 documented as of this encounter
--- OUTSIDE RECORDS SUMMARY | 2025-02-28 10:39 | XMS_ITS | Encounter Summary ---
Author Organization [employer] Address [address] [facility] 7t [place] [address] Care Team Providers Care Sander Setter Name Role Phone Edwige Headley MD Primary Care Provider [phone] Reason for Visit * Reason Comments Med Refill Encounter Details Date Type Department Care Team ([facility] st Contact Info) Description 02/24/2025 Refill [facility] MEDICINE 230 [place], [place] [phone] Teresas Maher MD 505 [place] [address] Social History Tobacco Use Types Packs/Day Years [...] Description 04/26/2025 11:00 AM EST Clinical Support [facility] MED & PEDS 505 [place] [address] Maria Guadalupe Rodríguez, AC 505 [place] [address] documented as of this encounter Goals Goal [...] documented as of this encounter Care Teams Sander Setter Relationship Specialty Start Date End Date Edwige Headley MD [address] [place] [address] PCP - General Family Medicine 08/21/22 documented as of this encounter
--- OUTSIDE RECORDS SUMMARY | 2025-02-28 10:39 | XMS_ITS | Encounter Summary ---
Author Organization [facility] Address [address] [facility] 7t [place] [address] Care Team Providers Care Manager Plumbing Name Role Phone Edwige Headley MD Primary Care Provider [phone] Reason for Visit * Reason Comments Med Refill Encounter Details Date Type Department Care Team (Late Contact Info) Description 12/04/2022 Refill [facility] CHC MED & PEDS 505 [place] [address] Edwige Headley MD 505 [place] [address] Social History Tobacco Use Types Packs/Day Years [...] Department Care Team (Late Contact Info) Description 04/26/2025 11:00 AM EST Clinical Support [facility] CHC MED & PEDS 505 [place] [address] Maria Guadalupe Rodríguez, AC 505 [place] [address] documented as of this encounter Goals Goal [...] documented as of this encounter Care Teams Manager Plumbing Relationship Specialty Start Date End Date Edwige Headley MD 230 [place] [address] PCP - General Family Medicine 08/21/22 documented as of this encounter
--- OUTSIDE RECORDS SUMMARY | 2025-02-28 10:39 | XMS_ITS | Encounter Summary ---
Author Organization [employer] Address [address] [facility] [address]t [place] [address] Care Team Providers Care Kitchen Stewardess Name Role Phone Edwige Headley MD Primary Care Provider [phone] Reason for Visit * Reason Onset Date Comments Appointment Request 09/05/2024 Encounter Details Date Type Department Care Team ([facility] st Contact Info) Description 09/05/2024 Telephone [facility] MEDICINE 230 [place] [address] Edwige Headley MD 505 [place] [address] Appointment Request Social History Tobacco Use Types [...] 04/26/2025 11:00 AM EST Clinical Support [facility] MED & PEDS 505 [place] [address] Maria Guadalupe Rodríguez, RN 505 [place] [address] documented as of this encounter Goals Goal [...] documented as of this encounter Care Teams Kitchen Stewardess Relationship Specialty Start Date End Date Edwige Headley MD 230 [place] [address] PCP - General Family Medicine 08/21/22 documented as of this encounter
--- OUTSIDE RECORDS SUMMARY | 2025-02-28 10:39 | XMS_ITS | Encounter Summary ---
Author Organization [employer] Address [address] 7[address] [place] [address] Care Team Providers Care Furnace Keeper Name Role Phone Edwige Headley MD Primary Care Provider [phone] Encounter Details Date Type Department Care Team ([facility] st Contact Info) Description 10/22/2022 Telephone [facility] CHC MED & PEDS 505 [place], [place] [phone] Edwige Headley MD 505 [place] [address] Social History Tobacco Use Types Packs/Day Years [...] a call in regards to message above. (Thai speaker) * Telephone Encounter - Inez Martinez - 10/22/2022 3:31 PM EDT TC from pt requesting help to schedule her gastro appt . Please call to clarify . documented in this encounter Plan of Treatment Upcoming Encounters Date Type Department Care Team (Late st Contact Info) Description 04/26/2025 11:00 AM EST Clinical Support [facility] MED & PEDS 505 [place] [address] Maria Guadalupe Rodríguez, RN 505 [place] [address] documented as of this encounter Goals Goal [...] documented as of this encounter Care Teams Furnace Keeper Relationship Specialty Start Date End Date Edwige Headley MD 230 [place] [address] PCP - General Family Medicine 08/21/22 documented as of this encounter
--- OUTSIDE RECORDS SUMMARY | 2025-02-28 10:39 | XMS_ITS | Encounter Summary ---
Author Organization [employer] Address [address] [facility] 7t [place] [address] Care Team Providers Care Architectural Model Maker Name Role Phone Edwige Headley MD Primary Care Provider [phone] Encounter Details Date Type Department Care Team ([facility] Contact Info) Description 11/03/2022 Abstract [employer] Information Management 230 [place], [place] [phone] Edwige Headley MD 505 [place], [place] [phone] Social History Tobacco Use Types Packs/Day Years [...] Upcoming Encounters Date Type Department Care Team ([facility] Contact Info) Description 04/26/2025 11:00 AM EST Clinical Support [facility] CHC MED & PEDS 505 [place], [place] [phone] Maria Guadalupe Rodríguez RN 505 [place] [address] documented as of this encounter Goals Goal [...] as of this encounter Care Teams Architectural Model Maker Relationship Specialty Start Date End Date Edwige Headley MD 230 [place] [address] PCP - General Family Medicine 08/21/22 documented as of this encounter
--- OUTSIDE RECORDS SUMMARY | 2025-02-28 10:39 | XMS_ITS | Encounter Summary ---
Author Organization [employer] Address [address] 7t [place] [address] Care Team Providers Care Shellfish Sorter Name Role Phone Edwige Headley MD Primary Care Provider [phone] Reason for Visit * Reason Onset Date Comments Appointment Request 01/24/2025 Encounter Details Date Type Department Care Team ([facility] st Contact Info) Description 01/24/2025 Telephone [facility] MEDICINE 230 [place] [address] Edwige Headley MD 505 [place] [address] Appointment Request Social History Tobacco Use Types [...] back regarding prior message. Contact pt at [phone] * Telephone Encounter - Tiburcio Thibodeaux - 01/24/2025 9:21 AM EDT Tc from pt requesting to reschedule RETIREMENT SALES CONSULTANT visit from 02/01. Please contact pt at [phone]. (Tuvaluan Speaker) documented in this encounter Plan of Treatment Upcoming Encounters Date Type Department Care Team ([facility] st Contact Info) Description 04/26/2025 11:00 AM EST Clinical Support [facility] MED & PEDS 505 [place] [address] Maria Guadalupe Rodríguez, RN 505 [place] [address] documented as of this encounter Goals Goal [...] documented as of this encounter Care Teams Shellfish Sorter Relationship Specialty Start Date End Date Edwige Headley MD 230 [place] [address] PCP - General Family Medicine 08/21/22 documented as of this encounter
--- OUTSIDE RECORDS SUMMARY | 2025-02-28 10:39 | XMS_ITS | Encounter Summary ---
Author Organization [employer] Address [address] 7t [place] [address] Care Team Providers Care Sprinkler Fitter Name Role Phone Edwige Headley MD Primary Care Provider [phone] Reason for Visit * Reason Onset Date Comments Appointment Request 08/17/2024 Encounter Details Date Type Department Care Team ([facility] st Contact Info) Description 08/17/2024 Telephone [facility] MEDICINE 230 [place] [address] Edwige Headley MD 505 [place] [address] Appointment Request Social History Tobacco Use Types [...] 04/26/2025 11:00 AM EST Clinical Support [facility] MED & PEDS 505 [place] [address] Maria Guadalupe Rodríguez, RN 505 [place] [address] documented as of this encounter Goals Goal [...] documented as of this encounter Care Teams Sprinkler Fitter Relationship Specialty Start Date End Date Edwige Headley MD 230 [place] [address] PCP - General Family Medicine 08/21/22 documented as of this encounter
--- OUTSIDE RECORDS SUMMARY | 2025-02-28 10:39 | XMS_ITS | Encounter Summary ---
Author Organization [employer] Address [address] 7t [place] [address] Care Team Providers Care Svp Digital Sales Food & Cooking Name Role Phone Edwige Headley MD Primary Care Provider [phone] Reason for Visit * Reason Comments Med Refill Encounter Details Date Type Department Care Team ([facility] st Contact Info) Description 10/16/2023 Refill [facility] CHC MED & PEDS 505 [place], [place] [phone] Edwige Headley MD 505 [place] [address] Social History Tobacco Use Types Packs/Day Years [...] Description 04/26/2025 11:00 AM EST Clinical Support [facility] MED & PEDS 505 [place] [address] Maria Guadalupe Rodríguez, RN 505 [place] [address] documented as of this encounter Goals Goal [...] documented as of this encounter Care Teams Svp Digital Sales Food & Cooking Relationship Specialty Start Date End Date Edwige Headley MD 230 [place] [address] PCP - General Family Medicine 08/21/22 documented as of this encounter
--- OUTSIDE RECORDS SUMMARY | 2025-02-28 10:39 | XMS_ITS | Encounter Summary ---
Author Organization [employer] Address [address] 7t [place] [address] Care Team Providers Care Electronic Field Service Engineer Name Role Phone Edwige Headley MD Primary Care Provider [phone] Reason for Visit * Reason Onset Date Comments Lab Orders 07/06/2024 Encounter Details Date Type Department Care Team ([facility] st Contact Info) Description 07/06/2024 Telephone [facility] MEDICINE 230 [place] [address] Edwige Headley MD 505 [place] [address] Lab Orders Social History Tobacco Use Types [...] TC x 3 placed to pt via [employer] entertainment & media correspondent (Ace ID#[id number]) to inform a tuberculosis lab order was placed by the provider for her to have done at her convenience. Pt verbalized understanding and deniesquestions or concerns at this time. * Telephone Encounter - Mau Overton - 07/06/2024 4:20 PM EST Tc from pt returning call. Pt needs an Chicken Fancier. * Telephone Encounter - Zoë Dorantes RN - 07/06/2024 3:33 PM EST TC placed to pt via [employer] entertainment & media correspondent (ID#[id number]) to inform a tuberculosis lab order was [...] [facility] MED & PEDS 505 [place], [place] [phone] Maria Guadalupe Rodríguez, RN 505 [place], [place] documented as of this encounter Goals [...] AM EST) T Spot TB Negative Negative [facility] Comment:A negative test resu lt [...] as aquantitative test. TS PANEL A 0 [facility] TS PANEL B 0 [facility] Negative Control Passed [facility] Positive Control Passed [facility] Comment:For additional infor nika, please refer tohttp://education.[employer].com/faq/MPX380(This link is being provided for informational/educational purposes only.)THIS TEST WAS PERFORMED AT:[facility] [place] [address]ULMSFUZVIRGINIA DAN MD,PHD 07/07/2024 9:23 AM EST 07/07/2024 1:55 PM EST us Edwige Headley MD LAB BLOOD ORDERABLES Final Re sult [facility] [address] [place] [phone] documented in this encounter Visit Diagnoses Diagnosis Encounter for screening for respiratory tuberculosis documented in this encounter Additional Health Concerns Assessment Noted Time PHQ-9 Depression Total Score: 10 06/2 024 12:52 PM EDT documented as of this encounter Care Teams Electronic Field Service Engineer Relationship Specialty Start Date End Date Edwige Headley MD [address] [place] [address] PCP - General Family Medicine 08/21/22 documented as of this encounter
--- OUTSIDE RECORDS SUMMARY | 2025-02-28 10:39 | XMS_ITS | Encounter Summary ---
Author Organization [employer] Address [address] [facility] 7t [place] [address] Care Team Providers Care Mill Feeder Name Role Phone Edwige Headley MD Primary Care Provider [phone] Encounter Details Date Type Department Care Team (Late st Contact Info) Description 08/03/2024 Orders Only [facility] MEDICINE 230 [place] [address] Radha Renee MD 505 [place] [address] Alzheimer's disease, unspecified (CODE) ([facility]) Social History Tobacco Use Types Packs/Day [...] [facility] MED [facility]EDS 505 [place] [address] Maria Guadalupe Rodríguez, AC 505 [place] [address] documented as of this encounter Goals Goal Patient Goal Type Associated Problems Recent Progress Patient-Stated? Author Use the inhalers as prescribed by provider; Flovent HFA scheduled and albuterol as needed General No Marcel Garcia, PharmD Take your medication every day Lifestyle No Marcel Garcia, PharmD documented as of this encounter Visit Diagnoses Diagnosis Alzheimer's disease, unspecified (CODE) (HCC) documented in this encounter Additional Health Concerns Assessment Noted Time PHQ-9 Depression Total Score: 10 024 12:52 PM EDT documented as of this encounter Care Teams Mill Feeder Relationship Specialty Start Date End Date Edwige Headley MD [address] [place] [address] PCP - General Family Medicine 08/21/22 documented as of this encounter
--- OUTSIDE RECORDS SUMMARY | 2025-02-28 10:39 | XMS_ITS | Encounter Summary ---
Author Organization [employer] Address [address] 7[address] [place] [address] Care Team Providers Care Cobbler Apprentice Name Role Phone Edwige Headley MD Primary Care Provider Reason for Visit * Reason Onset Date Comments PT-1 03/28/2024 Encounter Details Date Type Department Care Team ([facility] st Contact Info) Description 03/28/2024 Telephone [facility] MEDICINE 230 [place] [address] Edwige Headley MD 505 [place] [address] PT-1 Social History Tobacco Use Types Packs/Day [...] Y/N: Yes Provider name or facility name: [facility] Address: [address] [place] [address] Escort needed: Y/N: Yes Do you have a wheelchair: Y/N: No If yes- Manual or electric: (Uses Walker) Visits: Once a month documented in this encounter Plan of Treatment Upcoming Encounters Date Type Department Care Team (Late st Contact Info) Description 04/26/2025 11:00 AM EST Clinical Support [facility] CHC MED & PEDS 505 [place] [address] Maria Guadalupe Rodríguez, RN 505 [place] [address] documented as of this encounter Goals Goal [...] documented as of this encounter Care Teams Cobbler Apprentice Relationship Specialty Start Date End Date Edwige Headley MD [address] [place] [address] PCP - General Family Medicine 08/21/22 documented as of this encounter
== END 2025-02-28 11:49 | disposition home or self-care (01) ==
LOC: HO.HGI 09:26
PROVIDERS: PCP Family Medicine; Visit Provider Internal Medicine
DX: R12 Heartburn (principal); R13.10 Dysphagia, unspecified; K59.04 Chronic idiopathic constipation
CPT/HCPCS: 99214

== ENCOUNTER → 2025-02-28 09:25 | Outpatient (BNVA) | payer OTHER, SELFPAY | PROVIDERS: PCP Family Medicine; Visit Provider Internal Medicine | DX: K59.04 Chronic idiopathic constipation (principal); R12 Heartburn; R13.10 Dysphagia, unspecified | CPT/HCPCS: 99212 ==

== ENCOUNTER 2025-03-20 12:18 | Outpatient (REF) | payer OTHER, SELFPAY ==
--- NOTE | ~2025-03-20 | XR_ITS ---
EXAMINATION: XR LUMBOSACRAL SPINE WITH OBLIQUES CLINICAL INFORMATION: left sided low back pain COMPARISON: December 04, 2022 TECHNIQUE: AP, oblique and lateral views. FINDINGS: Multilevel marginal osteophyte formation and endplate sclerosis and decreased intervertebral disc height throughout the axial skeleton. Dextroconvex rotoscoliosis apex at L3. No acute cortical disruption or gross malalignment. No lytic or blastic lesions. Multiple calcifications at the size of the lower lumbar spine. Vascular clips in the right upper quadrant abdomen. Sclerosis and the sacroiliac joints. Osteopenia versus osteoporosis. XR/XR lumbar spine 4V min IMPRESSION: Multilevel spondylosis pronounced in the lower lumbar spine without acute fracture or gross listhesis. Dextroconvex rotoscoliosis. Electronically signed by: Lee Jacobson MD 03/20/2025 01:21 PM LOYD CASPER
--- OUTSIDE RECORDS SUMMARY | 2025-03-20 15:07 | XMS_ITS | Encounter Summary ---
Author Organization [employer] Address [address] 7t [place] [address] Care Team Providers Care Target Protection Specialist Name Role Phone Edwige Headley MD Primary Care Provider [phone] Reason for Visit * Reason Onset Date Comments Med Refill 01/18/2025 Encounter Details Date Type Department Care Team (Late st Contact Info) Description 01/18/2025 Telephone [facility] MEDICINE 230 [place] [address] Edwige Headley MD 505 [place] [address] Med Refill Social History Tobacco Use Types [...] MG tablet To be sent to: - [facility] - [place], [place] - 230 [facility] documented in this encounter Plan of Treatment Upcoming Encounters Date Type Department Care Team ([facility] st Contact Info) Description 04/26/2025 11:00 AM EST Clinical Support [facility] MED & PEDS 505 [place] [address] Maria Guadalupe Rodríguez, AC 505 [place] [address] documented as of this encounter Goals Goal [...] documented as of this encounter Care Teams Target Protection Specialist Relationship Specialty Start Date End Date Edwige Headley MD 230 [place] [address] PCP - General Family Medicine 08/21/22 documented as of this encounter
--- OUTSIDE RECORDS SUMMARY | 2025-03-20 15:08 | XMS_ITS | Encounter Summary ---
Author Organization [employer] Address [address] [facility] 7t [place] [address] Care Team Providers Care Commanding Officer Garage Name Role Phone Edwige Headley MD Primary Care Provider [phone] Reason for Visit * Reason Onset Date Comments Med Refill 03/20/2025 Encounter Details Date Type Department Care Team (Late st Contact Info) Description 03/20/2025 Refill [facility] MED & PEDS 505 [place] [address] Edwige Headley MD 505 [place] [address] Social History Tobacco Use Types Packs/Day Years [...] Telephone Encounter - Donna Kilgore LPN - 03/20/2025 2:56 PM EST Last seen 02/01/25. documented in this encounter Plan of Treatment Upcoming Encounters Date Type Department Care Team (Late st Contact Info) Description 04/26/2025 11:00 AM EST Clinical Support [facility] MED & PEDS 505 [place] [address] Maria Guadalupe Rodríguez, RN 505 [place] [address] documented as of this encounter Goals Goal [...] documented as of this encounter Care Teams Commanding Officer Garage Relationship Specialty Start Date End Date Edwige Headley MD 230 [place] [address] PCP - General Family Medicine 08/21/22 documented as of this encounter
--- OUTSIDE RECORDS SUMMARY | 2025-03-20 15:08 | XMS_ITS | Encounter Summary ---
Author Organization [facility] Address [address] [facility] 7t [place] [address] Care Team Providers Care Devil Dog Name Role Phone Edwige Headley MD Primary Care Provider [phone] Reason for Visit * Reason Comments Med Refill Encounter Details Date Type Department Care Team (Late Contact Info) Description 12/04/[address] [facility] CHC MED & PEDS 505 [place] [address] Edwige Headley MD 505 [place] [address] Social History Tobacco Use Types Packs/Day Years [...] Description 04/26/2025 11:00 AM EST Clinical Support [facility] CH[facility] MED & PEDS 505 [place] [address] Maria Guadalupe Rodríguez, AC 505 [place] [address] documented as of this encounter Goals Goal [...] documented as of this encounter Care Teams Devil Dog Relationship Specialty Start Date End Date Edwige Headley MD 230 [place] [address] PCP - General Family Medicine 08/21/22 documented as of this encounter
--- OUTSIDE RECORDS SUMMARY | 2025-03-20 15:08 | XMS_ITS | Encounter Summary ---
Author Organization [employer] Address [address] [facility] [address] 7t [place] [address] Care Team Providers Care Stretch Machine Operator Name Role Phone Edwige Headley MD Primary Care Provider [phone] Reason for Visit * Reason Onset Date Comments Med Refill 11/13/2024 Encounter Details Date Type Department Care Team ([facility] st Contact Info) Description 11/13/2024 Telephone [facility] MEDICINE 230 [place] [address] Edwige Headley MD 505 [place] [address] Med Refill Social History Tobacco Use Types [...] 50 MG tablet To be sent to: [facility] pharmacy documented in this encounter Plan of Treatment Upcoming Encounters Date Type Department Care Team (Late st Contact Info) Description 04/26/2025 11:00 AM EST Clinical Support [facility] MED & PEDS 505 [place] [address] Maria Guadalupe Rodríguez, RN 505 [place] [address] documented as of this encounter Goals Goal [...] documented as of this encounter Care Teams Stretch Machine Operator Relationship Specialty Start Date End Date Edwige Headley MD 230 [place] [address] PCP - General Family Medicine 08/21/22 documented as of this encounter
--- OUTSIDE RECORDS SUMMARY | 2025-03-20 15:08 | XMS_ITS | Encounter Summary ---
Author Organization [employer] Address [address] 7t [place] [address] Care Team Providers Care Cyber Systems Operations Specialist Name Role Phone Edwige Headley MD Primary Care Provider [phone] Encounter Details Date Type Department Care Team ([facility] st Contact Info) Description 10/22/2022 Telephone [facility] CHC MED & PEDS 505 [place], [place] [phone] Edwige Headley MD 505 [place] [address] Social History Tobacco Use Types Packs/Day Years [...] a call in regards to message above. (Nepali speaker) * Telephone Encounter - Inez Martinez [...] [facility] 505 [place] [address] Maria Guadalupe Rodríguez, RN 505 [place] [address] documented as of this encounter Goals Goal [...] documented as of this encounter Care Teams Cyber Systems Operations Specialist Relationship Specialty Start Date End Date Edwige Headley MD 230 [place] [address] PCP - General Family Medicine 08/21/22 documented as of this encounter
--- OUTSIDE RECORDS SUMMARY | 2025-03-20 15:08 | XMS_ITS | Encounter Summary ---
Author Organization [employer] Address [address] [facility] 7 [place] [address] Care Team Providers Care Operation Specialist Name Role Phone Edwige Headley MD Primary Care Provider [phone] Reason for Visit * Reason Comments Med Refill Encounter Details Date Type Department Care Team ([facility] st Contact Info) Description 01/15/2025 Refill [facility] CHC MED & PEDS 505 [place], [place] [phone] Radha Renee MD 505 [place] [address] Social History Tobacco Use Types Packs/Day Years [...] Description 04/26/2025 11:00 AM EST Clinical Support [facility] MED & PEDS 505 [place] [address] Maria Guadalupe Rodríguez, RN 505 [place] [address] documented as of this encounter Goals Goal [...] documented as of this encounter Care Teams Operation Specialist Relationship Specialty Start Date End Date Edwige Headley MD 230 [place] [address] PCP - General Family Medicine 08/21/22 documented as of this encounter
--- OUTSIDE RECORDS SUMMARY | 2025-03-20 15:08 | XMS_ITS | Encounter Summary ---
Author Organization [employer] Address [address] 7t [place] [address] Care Team Providers Care Obstetric Anaesthetist Name Role Phone Edwige Headley MD Primary Care Provider [phone] Reason for Visit * Reason Onset Date Comments PT-1 03/28/2024 Encounter Details Date Type Department Care Team ([facility] st Contact Info) Description 03/28/2024 Telephone [facility] MEDICINE 230 [place] [address] Edwige Headley MD 505 [place] [address] PT-1 Social History Tobacco Use Types Packs/Day [...] Y/N: Yes Provider name or facility name: [facility] Facility Address: [address] [place] [address] Escort needed: Y/N: Yes Do you have a wheelchair: Y/N: No If yes- Manual or electric: (Uses Walker) Visits: Once a month documented in this encounter Plan of Treatment Upcoming Encounters Date Type Department Care Team (Late st Contact Info) Description 04/26/2025 11:00 AM EST Clinical Support [facility] CHC MED & PEDS 505 [place] [address] Maria Guadalupe Rodríguez, RN 505 [place] [address] documented as of this encounter Goals Goal [...] documented as of this encounter Care Teams Obstetric Anaesthetist Relationship Specialty Start Date End Date Edwige Headley MD [address] [place] [address] PCP - General Family Medicine 08/21/22 documented as of this encounter
--- OUTSIDE RECORDS SUMMARY | 2025-03-20 15:08 | XMS_ITS | Encounter Summary ---
Author Organization [employer] Address [address] [facility] [address] 7t [place] [address] Care Team Providers Care Trombone Slide Assembler Name Role Phone Edwige Headley MD Primary Care Provider [phone] Reason for Visit * Reason Onset Date Comments PT1 03/13/2025 Encounter Details Date Type Department Care Team ([facility] st Contact Info) Description 03/13/2025 Telephone [facility] MEDICINE 230 [place] [address] Edwige Headley MD 505 [place] [address] PT1 Social History Tobacco Use Types Packs/Day Years [...] Description 04/26/2025 11:00 AM EST Clinical Support [facility] MED & PEDS 505 [place] [address] Maria Guadalupe Rodríguez, RN 505 [place] [address] documented as of this encounter Goals Goal [...] documented as of this encounter Care Teams Trombone Slide Assembler Relationship Specialty Start Date End Date Edwige Headley MD 230 [place] [address] PCP - General Family Medicine 08/21/22 documented as of this encounter
--- OUTSIDE RECORDS SUMMARY | 2025-03-20 15:08 | XMS_ITS | Encounter Summary ---
Author Organization [employer] Address [address] 7t [place] [address] Care Team Providers Care Washcoat Wiper Name Role Phone Edwige Headley MD Primary Care Provider [phone] Reason for Visit * Reason Onset Date Comments Med Refill 03/20/2025 Encounter Details Date Type Department Care Team ([facility] st Contact Info) Description 03/20/2025 Telephone [facility] MEDICINE 230 [place] [address] Edwige Headley MD 505 [place] [address] Med Refill Social History Tobacco Use Types [...] * Telephone Encounter - Diana Butler - 03/20/2025 8:43 AM EST TC from pt requesting medication refill. Medications needing refill : - traMADol (Ultram) 50 MG tablet To be sent to: - [facility] - [place], [place] - 230 [facility] documented in this encounter Plan of Treatment Upcoming Encounters Date Type Department Care Team (Late st Contact Info) Description 04/26/2025 11:00 AM EST Clinical Support [facility] CHC MED & PEDS 505 [place] [address] Maria Guadalupe Rodríguez, AC 505 [place] [address] documented as of this encounter Goals Goal [...] documented as of this encounter Care Teams Washcoat Wiper Relationship Specialty Start Date End Date Ediwge Headley MD [address] [place] [address] PCP - General Family Medicine 08/21/22 documented as of this encounter
--- OUTSIDE RECORDS SUMMARY | 2025-03-20 15:08 | XMS_ITS | Encounter Summary ---
Author Organization [employer] Address [address] 7t [place] [address] Care Team Providers Care Tanker Truck Driver Name Role Phone Edwige Headley MD Primary Care Provider [phone] Reason for Visit * Reason Onset Date Comments Lab Orders 07/06/2024 Encounter Details Date Type Department Care Team ([facility] st Contact Info) Description 07/06/2024 Telephone [facility] MEDICINE 230 [place] [address] Edwige Headley MD 505 [place] [address] Lab Orders Social History Tobacco Use Types [...] TC x 3 placed to pt via IM[employer] fish hatchery assistant (Ace ID#[id number]) to inform a tuberculosis lab order was placed by the provider for her to have done at her convenience. Pt verbalized understanding and deniesquestions or concerns at this time. * Telephone Encounter - Mau Overton - 07/06/2024 4:20 PM EST Tc from pt returning call. Pt needs an Daily Sales Audit Clerk. * Telephone Encounter - Zoë Dorantes RN - 07/06/2024 3:33 PM EST TC placed to pt via [employer] fish hatchery assistant (ID#[id number]) to inform a tuberculosis lab order was [...] Description 04/26/2025 11:00 AM EST Clinical Support [facility] MED & PEDS 505 [place], [place] [phone] Maria Guadalupe Rodríguez, RN 505 [place], [place] documented as of this encounter Goals [...] AM EST) T Spot TB Negative Negative [facility] Comment:A negative test resu lt [...] as aquantitative test. TS PANEL A 0 [facility] TS PANEL B 0 [facility] Negative Control Passed [facility] Positive Control Passed [facility] Comment:For additional infor nika, please refer tohttp://education.ERPLY.com/faq/RJA231(This link is being provided for informational/educational purposes only.)THIS TEST WAS PERFORMED AT:[email or web address] [place] [address]OFLMJWBVIRGINIA DAN MD,PHD 07/07/2024 9:23 AM EST 07/07/2024 1:55 PM EST us Edwige Headley MD LAB BLOOD ORDERABLES Final Re sult [facility] [address] [place] [phone] documented in this encounter Visit Diagnoses Diagnosis Encounter for screening for respiratory tuberculosis documented in this encounter Additional Health Concerns Assessment Noted Time PHQ-9 Depression Total Score: 10 06/2 024 12:52 PM EDT documented as of this encounter Care Teams Tanker Truck Driver Relationship Specialty Start Date End Date Edwige Headley MD [address] [place] [address] PCP - General Family Medicine 08/21/22 documented as of this encounter
--- OUTSIDE RECORDS SUMMARY | 2025-03-20 15:08 | XMS_ITS | Encounter Summary ---
Author Organization [employer] Address [address] 7t [place] [address] Care Team Providers Care Cancer Genetic Counselor Name Role Phone Edwige Headley MD Primary Care Provider [phone] Reason for Visit * Reason Onset Date Comments Appointment Request 04/06/2024 Encounter Details Date Type Department Care Team ([facility] st Contact Info) Description 04/06/2024 Telephone [facility] MEDICINE 230 [place] [address] Edwige Headley MD 505 [place] [address] Appointment Request Social History Tobacco Use Types [...] somewhere else. Contac pt to r/s at [phone] documented in this encounter Plan of Treatment Upcoming Encounters Date Type Department Care Team (Late st Contact Info) Description 04/26/2025 11:00 AM EST Clinical Support [facility] CHC MED & PEDS 505 [place] [address] Maria Guadalupe Rodríguez, RN 505 [place] [address] documented as of this encounter Goals Goal [...] documented as of this encounter Care Teams Cancer Genetic Counselor Relationship Specialty Start Date End Date Edwige Headley MD 230 [place] [address] PCP - General Family Medicine 08/21/22 documented as of this encounter
--- OUTSIDE RECORDS SUMMARY | 2025-03-20 15:08 | XMS_ITS | Encounter Summary ---
Author Organization [employer] Address [address] 7t [place] [address] Care Team Providers Care Lidding Machine Operator Name Role Phone Edwige Headley MD Primary Care Provider [phone] Reason for Visit * Reason Onset Date Comments Med Refill 03/20/2025 Encounter Details Date Type Department Care Team ([facility] st Contact Info) Description 03/20/2025 Refill [facility] MED & PEDS 505 [place] [address] Maria Guadalupe Rodríguez, RN 505 [place] [address] Fibromyalgia Social History Tobacco Use Types Packs/Day [facility] 505 [place] [address] Maria Guadalupe Rodírguez, AC 505 [place] [address] documented as of this encounter Goals Goal [...] documented as of this encounter Care Teams Lidding Machine Operator Relationship Specialty Start Date End Date Edwige Headley MD 230 [place] [address] PCP - General Family Medicine 08/21/22 documented as of this encounter
--- OUTSIDE RECORDS SUMMARY | 2025-03-20 15:08 | XMS_ITS | Encounter Summary ---
Author Organization [employer] Address [address] [facility] 7t [place] [address] Care Team Providers Care Labeling Specialist Name Role Phone Edwige Headley MD Primary Care Provider [phone] Encounter Details Date Type Department Care Team ([facility] Contact Info) Description 11/03/2022 [facility] 230 [place], [place] [phone] Edwige Headley MD 505 [place], [place] [phone] Social History Tobacco Use Types Packs/Day Years [...] Upcoming Encounters Date Type Department Care Team ([facility] Contact Info) Description 04/26/2025 11:00 AM EST Clinical Support [facility] CH[facility] MED & PEDS 505 [place], [place] [phone] Maria Guadalupe Rodríguez RN 505 [place] [address] documented as of this encounter Goals Goal [...] documented as of this encounter Care Teams Labeling Specialist Relationship Specialty Start Date End Date Edwige Headley MD 230 [place] [address] PCP - General Family Medicine 08/21/22 documented as of this encounter
--- OUTSIDE RECORDS SUMMARY | 2025-03-20 15:08 | XMS_ITS | Encounter Summary ---
Author Organization [employer] Address [address] [facility] 7t [place] [address] Care Team Providers Care Medical Scientific Officer Name Role Phone Edwige Headley MD Primary Care Provider [phone] Encounter Details Date Type Department Care Team (Late st Contact Info) Description 08/03/2024 Orders Only [facility] MEDICINE 230 [place] [address] Radha Renee MD 505 [place] [address] Alzheimer's disease, unspecified (CODE) ([facility] Social History Tobacco Use Types Packs/Day Years [...] Description 04/26/2025 11:00 AM EST Clinical Support [facility] CH[facility] MED & PEDS 505 [place] [address] Maria Guadalupe Rodríguez, AC 505 [place] [address] documented as of this encounter Goals Goal [...] as of this encounter Care Teams Medical Scientific Officer Relationship Specialty Start Date End Date Edwige Headley MD [address] [place] [address] PCP - General Family Medicine 08/21/22 documented as of this encounter
--- OUTSIDE RECORDS SUMMARY | 2025-03-20 15:08 | XMS_ITS | Encounter Summary ---
Author Organization [employer] Address [address] [facility] 7 [place] [address] Care Team Providers Care Admissions Evaluator Name Role Phone Edwige Headley MD Primary Care Provider [phone] Reason for Visit * Reason Comments Med Refill Encounter Details Date Type Department Care Team ([facility] st Contact Info) Description 10/23/2024 Refill [facility] MED & PEDS 505 [place], [place] [phone] Radha Renee MD 505 [place] [address] Social History Tobacco Use Types Packs/Day Years [...] Description 04/26/2025 11:00 AM EST Clinical Support [facility] MED & PEDS 505 [place] [address] Maria Guadalupe Rodríguez, RN 505 [place] [address] documented as of this encounter Goals Goal [...] documented as of this encounter Care Teams Admissions Evaluator Relationship Specialty Start Date End Date Edwige Headley MD 230 [place] [address] PCP - General Family Medicine 08/21/22 documented as of this encounter
--- OUTSIDE RECORDS SUMMARY | 2025-03-20 15:08 | XMS_ITS | Encounter Summary ---
Author Organization [employer] Address [address] [facility] [address] 7t [place] [address] Care Team Providers Care Manager Hospice Name Role Phone Edwige Headley MD Primary Care Provider [phone] Reason for Visit * Reason Onset Date Comments Appointment Request 09/05/2024 Encounter Details Date Type Department Care Team ([facility] st Contact Info) Description 09/05/2024 Telephone [facility] MEDICINE 230 [place] [address] Edwige Headley MD 505 [place] [address] Appointment Request Social History Tobacco Use Types [...] 11:00 AM EST Clinical Support [facility] MED & PEDS 505 [place] [address] Maria Guadalupe Rodríguez, RN 505 [place] [address] documented as of this encounter Goals Goal [...] as of this encounter Care Teams Manager Hospice Relationship Specialty Start Date End Date Edwige Headley MD 230 [place] [address] PCP - General Family Medicine 08/21/22 documented as of this encounter
--- OUTSIDE RECORDS SUMMARY | 2025-03-20 15:08 | XMS_ITS | Encounter Summary ---
Author Organization [facility] [employer] Address [address] 7[address] [place] [address] Care Team Providers Care Injection Molding Supervisor Name Role Phone Edwige Headley MD Primary Care Provider [phone] Reason for Visit * Reason Onset Date Comments Medical Necessity Form 10/20/2024 Encounter Details Date Type Department Care Team ([facility] st Contact Info) Description 10/20/2024 Telephone [facility] MEDICINE 230 [place] [address] Edwige Headley MD 505 [place] [address] Medical Necessity Form Social History Tobacco Use [...] - 10/20/2024 10:29 AM EDT TC from [facility] with [facility] requesting a medical necessity form regarding a stair lift. She stated that provider agreement is required for processing and requested the form be faxed to [phone]. documented in this encounter Plan of Treatment Upcoming Encounters Date Type Department Care Team ([facility] Contact Info) Description 04/26/2025 11:00 AM EST Clinical Support [facility] MED & PEDS 505 [place] [address] Maria Guadalupe Rodríguez, RN 505 [place] [address] documented as of this encounter Goals Goal [...] documented as of this encounter Care Teams Injection Molding Supervisor Relationship Specialty Start Date End Date Edwige Headley MD 230 [place] [address] PCP - General Family Medicine 08/21/22 documented as of this encounter
--- OUTSIDE RECORDS SUMMARY | 2025-03-20 15:08 | XMS_ITS | Encounter Summary ---
Author Organization [employer] Address [address] 7[address] [place] [address] Care Team Providers Care Delivery Truck Driver Name Role Phone Edwige Headley MD Primary Care Provider [phone] Reason for Visit * Reason Onset Date Comments Hospital Follow-up 05/25/2024 Encounter Details Date Type Department Care Team ([facility] st Contact Info) Description 05/25/2024 Telephone [facility] 230 [place] [address] Edwige Headley MD [address] [place] [address] Hospital Follow-up Social History Tobacco Use Types [...] from pt requesting a HDF appt. Hospital: [facility] Date of admission: 05/16/2024 Discharge date: 2024 Diagnosed: Discuss with pt. *Send message to [facility] Clinical Care Coordinators documented in this encounter Plan of Treatment Upcoming Encounters Date Type Department Care Team (Late st Contact Info) Description 04/26/2025 11:00 AM EST Clinical Support [facility] MED & [facility]EDS 505 [place] [address] Maria Guadalupe Rodríguez, RN 505 [place] [address] documented as of this encounter Goals Goal [...] documented as of this encounter Care Teams Delivery Truck Driver Relationship Specialty Start Date End Date Edwige Headley MD [address] [place] [address] PCP - General Family Medicine 08/21/22 documented as of this encounter
--- OUTSIDE RECORDS SUMMARY | 2025-03-20 15:08 | XMS_ITS | Encounter Summary ---
Author Organization [employer] Address [address] [place] [address] Care Team Providers Care Construction Economist Name Role Phone Edwige Headley MD Primary Care Provider [phone] Reason for Visit * Reason Comments Med Refill Encounter Details Date Type Department Care Team ([facility] st Contact Info) Description 08/13/2023 Refill [facility] [address] [place], [place] [id number] Edwige Headley MD [address] [place] [address] Social History Tobacco Use Types Packs/Day Years [...] AM EST Clinical Support [facility] [address] [place] [address] Maria Guadalupe Rodríguez, RN [address] [place] [address] documented as of this encounter Goals Goal [...] as of this encounter Care Teams Construction Economist Relationship Specialty Start Date End Date Edwige Headley MD [address] [place] [address] PCP - General Family Medicine 08/21/22 documented as of this encounter
--- OUTSIDE RECORDS SUMMARY | 2025-03-20 15:08 | XMS_ITS | Encounter Summary ---
Author Organization [employer] Address [address] [place] [address] Care Team Providers Care Second Operator Name Role Phone Edwige Headley MD Primary Care Provider [phone] Reason for Visit * Reason Comments Med Refill Encounter Details Date Type Department Care Team ([facility] st Contact Info) Description 10/16/2023 Refill [facility] [address] [place], [place] [phone] Edwige Headley MD [address] [place] [address] Social History Tobacco Use Types Packs/Day Years [...] Description 04/26/2025 11:00 AM EST Clinical Support [facility]ED[facility] [address] [place] [address] Maria Guadalupe Rodríguez, RN [address] [place] [address] documented as of this encounter Goals Goal [...] documented as of this encounter Care Teams Second Operator Relationship Specialty Start Date End Date Edwige Headley MD [address] [place] [address] PCP - General Family Medicine 08/21/22 documented as of this encounter
--- OUTSIDE RECORDS SUMMARY | 2025-03-20 15:08 | XMS_ITS | Encounter Summary ---
Author Organization [employer] Address [address] [place] [address] Care Team Providers Care Sports Book Writer Name Role Phone Edwige Headley MD Primary Care Provider [phone] Reason for Visit * Reason Onset Date Comments Appointment Request 08/17/2024 Encounter Details Date Type Department Care Team ([facility] st Contact Info) Description 08/17/2024 Telephone [facility] [address] [place] [address] Edwige Headley MD [address] [place] [address] Appointment Request Social History Tobacco Use Types [...] Description 04/26/2025 11:00 AM EST Clinical Support [facility] MED & PEDS [address] [place] [address] Maria Guadalupe Rodríguez, RN [address] [place] [address] documented as of this encounter Goals Goal [...] documented as of this encounter Care Teams Sports Book Writer Relationship Specialty Start Date End Date Edwige Headley MD [address] [place] [address] PCP - General Family Medicine 08/21/22 documented as of this encounter
--- OUTSIDE RECORDS SUMMARY | 2025-03-20 15:08 | XMS_ITS | Clinical Summary ---
Author Organization [employer] Address [address] [facility] [address] [place] [address] Care Team Providers Care Port Cdl A Driver Name Role Phone Edwige Headley MD Primary Care Provider [phone] Allergies Active Allergy Reactions Criticality Noted Date [...] each 023 Active Lancets (OneTouch Delica Plus [id number]) misc 1 Units in the morning. Please [...] MOUTH AT BEDTIME 90 tablet 1 Active TechFaithTouch Ultra Test test strip USE DIRECTED TO [...] 5 MG tabletIndicatio ns:Alzheimer's disease, unspecified (CODE) ([facility]) TAKE 1 TABLET BY MOUTH TWICE DAILY IN THE MORNING AND IN THE EVENING 60 tablet 2 025 Active losartan (Cozaar) 25 MG tablet TAKE 1 TABLET BY MOUTH EVERY MORNING 90 tablet 1 025 Active TRUEplus Lancets 33G miscIndications :Type 2 diabetes mellitus with hyperglycemia, without long-term current use of insulin ([facility]) USE THREE TIMES DAILY TO TEST BLOOD SUGAR DIRECTED 100 each 3 025 Active sucralfate (Carafate) 1 GM/10ML suspension TAKE 10mls BY MOUTH EVERY 8 HOURS NEEDED WITH FOOD 900 mL 1 025 Active traMADol (Ultram) 50 MG tabletIndicatio ns:Fibromyalgia Take 1 tablet (50 mg) by mouth every 12 (twelve) hours if needed for severe pain. 56 tablet 025 Active sucralfate (Carafate) 1 GM/10ML suspension TAKE 10 ML BY MOUTH EVERY 8 HOURS NEEDED WITH FOOD 900 mL 1 025 2024 Discontinued traMADol (Ultram) 50 MG tabletIndicatio ns:Fibromyalgia TAKE 1 TABLET BY MOUTH qmhs NEEDED FOR SEVERE PAIN 56 tablet 025 2024 Discontinued(R eorder (will [...] Trelegy , which was prescribed by a human resources hr generalist. Oxygen saturation appears stable at rest, but there is a need to assess for desaturation with ambulation. Plan: - Continue Trelegy 262.5/ as prescribed by human resources hr generalist - Assess oxygen saturation with ambulation - Consider low-dose chronic steroids (to be discussed with human resources hr generalist) - Follow up with human resources hr generalist on the of the current month Bilateral [...] swallow test came back normal. Referred to combat systems engineer Assessment & Plan (07/20/2023 9:51 PM EST): [...] be prescribed steroids. Recommended patient to call Press Cutter to schedule an appointment to get further assistance. Alzheimer's dementia ([facility]) 08/21/2022 Assessment & Plan (03/16/2024 2:25 PM [...] and daughter. PLAN: 1. Follow up with [facility]: Not recommended for follow-up 2. Patient goal is to be able to manage her symptoms without medication. 3. Behavioral Recommendations a. Referral to Ind. therapy b. Practice of Coping skills for Anxiety c. Contact this tech writer for support as needed Encounters Date Type Department Care Team Description 03/20/2025 Refill [facility] [address] [place] [address] Edwige Headley MD 03/20/2025 Refill [facility] [address] [place] [address] Maria Guadalupe Rodríguez RN Fibromyalgia 03/20/2025 Telephone [facility] [address] [place] [phone] Edwige Headley MD Med Refill 03/13/2025 Patient Outreach [address] [address] Edwige Headley MD Care Coordination (CH[facility] outreach for SDOH [id number] ral completed /) 03/13/2025 Telephone [facility] [address] [place] [address] Edwige Headley MD PT1 02/24/2025 Refill [facility] [address] [place] [phone] Teressa Maher MD 02/21/2025 11:00 AM EDT Clinical Support [facility] [address] [place] [address] Maria Guadalupe Rodríguez RN Long-term current use of opiate analgesic (Primary Dx) 02/21/2025 Travel 02/21/2025 Telephone [facility] [address] [place] [address] Maria Guadalupe Rodríguez RN 02/16/2025 Refill [facility] [address] [place] [address] Edwige Headley MD Fibromyalgia 02/07/2025 Refill [facility] [address] [place] [address] Teressa Maher MD 02/06/2025 Refill [facility] [address] [place] [phone] Teressa Maher MD Type 2 diabetes mellitus with hyperglycemia, without long-term current use of insulin ([facility]) 02/03/2025 Refill [facility] [address] [place] [address] Edwige Headley MD Fibromyalgia; Alzheimer's disease, unspecified (CODE) (CMS/HCC) 02/02/2025 Results Follow-Up [facility] [address] [place] [phone] Viviana Lou MD Ferritin, Vitamin B12/Folate, Serum Panel 02/01/2025 2:20 PM EDT Office Visit [facility] [address] [place] [phone] Viviana Lou MD Pain in both lower extremities (Primary Dx) 02/01/2025 Travel 01/30/2025 Telephone [facility] [address] [place] [address] Maria Guadalupe Rodríguez RN 01/24/[address] [address] Edwige Headley MD Appointment Request 01/18/2025 Refill [facility] [address] [place] [address] Edwige Headley MD Fibromyalgia 01/18/[address] [address] Edwige Headley MD Med Refill 01/17/2025 Refill [facility] [address] [place] [address] Radha Renee MD 01/16/[address] [address] Edwige Headley MD 01/15/2025 Refill [facility] [address] [place] [address] Radha Renee MD 01/12/2025 3:15 PM EDT Office Visit [facility] [address] [place] [address] Edwige Headley MD Iliotibial band syndrome, left (Primary Dx); Atrophic vaginitis 01/12/2025 Travel 01/11/2025 Telephone [facility] [address] [place] [address] Edwige Headley MD Chart Prep 01/05/2025 Patient Outreach [address] [address] Edwige Headley MD Pre-visit Planning ([facility] screening completed on 09/19/24 ) 12/25/2024 Refill [facility] [address] [place] [address] Robert High MD 12/25/2024 Refill [facility] [address] [place], [place] [phone] Edwige Headley MD 12/21/2024 Refill [facility] [address] [place] [address] Edwige Headley MD Fibromyalgia (Primary Dx) 12/19/2024 Refill [facility] [address] [place] [address] Maryuri Miller FNP from Last 3 Months Immunizations Immunization Administration [...] 11:00 AM EST Clinical Support [facility] [address] [place] [address] Maria Guadalupe Rodríguez, AC [address] [place] [address] Health Maintenance Due Date Last Done Comments [...] scheduled and albuterol as needed General No Radha, Marcel, PharmD Take your medication every day Lifestyle No Marcel Garcia PharmD Procedures Procedure Name Priority Date/Time Associated Diagnosis Comments XR LUMBAR SPINE COMPLETE 4+ VIEWS Routine 03/20/2025 1:02 PM EST Acute left-sided low back pain without sciatica POCT SENAIT-14 URINE DRUG SCREEN Routine 02/21/2025 [...] hyperglycemia, without long-term current use of insulin (CMS/[facility]) HIV 1/2 ANTIGEN/ANTIBODY, FOURTH GENERATION W/RFL Routine [...] 02/01/2025 2:59 PM EDT Other fatigue POCT GLYCATED HEMOGLOBIN, TOTAL Routine 09/27/2024 3:04 [...] Recently Relevant to Health Maintenance Results * XR Lumbar Spine Complete 4+ Views (03/20/2025 1:02 PM EST) Anatomical Region Laterality Modality Spine, L-spine Radiographic Patricia ging 03/20/2025 1:02 PM EST Narrative 03/20/2025 1:23 PM EST [address] [address] XRay Report Signed Patient: Ed Holguin MR#: [id number] : 1945 Acct:[id number] Age/Sex: 79 / F ADM Date: 03/20/25 Loc: HO.XRAY Attending Dr: Radha Renee MD Ordering Physician: Radha Renee MD Date of Service: 03/20/25 Procedure(s): XR lumbar spine 4V min Accession Number(s): [id number] cc: Radha Renee MD Reason for Exam: left sided low back pain EXAMINATION: XR LUMBOSACRAL SPINE WITH OBLIQUES CLINICAL INFORMATION: left sided low back pain COMPARISON: December 04, 2022 TECHNIQUE: AP, oblique and lateral views. FINDINGS: Multilevel marginal osteophyte formation and endplate sclerosis and decreased intervertebral disc height throughout the axial skeleton. Dextroconvex rotoscoliosis apex at L3. No acute cortical disruption or gross malalignment. No lytic or blastic lesions. Multiple calcifications at the size of the lower lumbar spine. Vascular clips in the right upper quadrant abdomen. Sclerosis and the sacroiliac joints. Osteopenia versus osteoporosis. XR/XR lumbar spine 4V min IMPRESSION: Multilevel spondylosis pronounced in the lower lumbar spine without acute fracture or gross listhesis. Dextroconvex rotoscoliosis. Electronically signed by: Lee Jacobson MD 03/20/2025 01:21 PM EST RP Dictated By: Lee Smith MD Signed By: <Electronically signed by Lee Geller MD in OV> 03/20/25 1321 DD/ 1302 TD/TT: 03/20/25 1313 Chiller Tender: Procedure Note Donotuseinterpreter, Image - 03/20/[address] [address] XRay Report Signed Patient: Arthur Holguin#: M [id number] : 6Acct:[id number] Age/Sex: 79 / FADM Date: 03/20/25 Loc: HO.XRAY Attending Dr: Radha Renee MD Ordering Physician: Radha Renee MD Date of Service: 03/20/25 Procedure(s): XR lumbar spine 4V min Accession Number(s): [id number] cc: Radha Renee MD Reason for Exam: left sided low back pain EXAMINATION: XR LUMBOSACRAL SPINE WITH OBLIQUES CLINICAL INFORMATION: left sided low back pain COMPARISON: December 04, 2022 TECHNIQUE: AP, oblique and lateral views. FINDINGS: Multilevel marginal osteophyte formation and endplate sclerosis and decreased intervertebral disc height throughout the axial skeleton. Dextroconvex rotoscoliosis apex at L3. No acute cortical disruption or gross malalignment. No lytic or blastic lesions. Multiple calcifications at the size of the lower lumbar spine. Vascular clips in the right upper quadrant abdomen. Sclerosis and the sacroiliac joints. Osteopenia versus osteoporosis. XR/XR lumbar spine 4V min IMPRESSION: Multilevel spondylosis pronounced in the lower lumbar spine without acute fracture or gross listhesis. Dextroconvex rotoscoliosis. Electronically signed by: Lee Jacobson MD 03/20/2025 01:21 PM EST RP Dictated By: Lee Smith MD Signed By: <Electronically signed by Lee Geller MDin OV> 03/20/25 1321 DD/ 1302 TD/TT: 03/20/25 1313 Chiller Tender: us Radha Renee MD IMG XR PROCEDURES Final Res ult * (ABNORMAL) POCT SENAIT-14 Urine Drug Screen [...] AM EDT . Internal Pass Control Lot# [id number] Exp: 03-16-26 us Edwige Headley MD POINT OF CARE TEST ENTER/EDIT ORDERABLES Final Result * TSH W/Reflex to FT4 (02/01/2025 3:30 PM EDT) TSH reflex Free T4 0.89 0.32 - 4.0 uIU/mL [facility] Blood Venous blood specimen / Unknown 02/01/2025 3:30 PM EDT 02/01/2025 4:03 PM EDT us Edwige Headley MD LAB BLOOD ORDERABLES Final Re sult [facility] [address] [place] [phone] * Vitamin B12/Folate, Serum Panel (02/01/2025 2:59 PM EDT) Vitamin B12 719 200 - 900 pg/mL [facility] Comment:NORMAL 200-900 PG/ML INDETERMINATE 160-199 PG/ML DEFICIENT < 160 PG/ML Folate 7.9 > or = 4.0 ng/mL [facility] Comment:Reference Values:> o r = 4.0 ng/mL< 4.0 ng/mL suggests folate deficiency Methotrexate, aminopterin and folinic acid(leucovorin) are chemotherapeutic agents whose molecularstructures are similar to folate; therefore, the Architectfolate assay cannot be used for patients using these drugs. Blood Venous blood specimen / Unknown 02/01/2025 2:59 PM EDT 02/01/2025 4:03 PM EDT us Viviana Lou MD LAB BLOOD ORDERABLES Final Result [facility] [address] [place] [phone] * (ABNORMAL) CBC auto differential (02/01/2025 2:59 PM EDT) Pathologist [facility] White Blood Count 8.1 4.8 - 10.8 X10*3/uL [facility] Red Blood Count 4.28 4.20 - 5.50 X10*6/uL [facility] Hemoglobin 12.7 12.0 - 16.0 g/dl [facility] Hematocrit 37.7 37.0 - 47.0 % [facility] Mean Corpuscular Volume 88.1 80.0 - 98.0 fL [facility] Mean Corpuscular Hemoglobin 29.7 27.0 - 33.0 pg [facility] Mean Corpuscular HGB Conc 33.7 31.0 - 35.0 g/dl [facility] Red Cell Distribution Width 15.1 11.0 - 16.0 % [facility] Platelet Count 232 160 - 400 X10*3/uL [facility] Mean Platelet Volume 11.2 9.4 - 12.3 fL [facility] Neutrophils Percent Auto 58.3 45 - 73 % [facility] Imm Gran Pct Auto 0.4 0.0 - 0.4 % [facility] Lymphocytes Percent Auto 28.0 20 - 40 % [facility] Monocytes Percent Auto 12.2(H) 2 - 11 % [facility] Eosinophils Percent Auto 0.6 0 - 4 % [facility] Basophils Percent Auto 0.5 0 - 2 % [facility] NRBC Pct Auto 0.0 0.0 - 0.2 /100WBC [facility] Neutrophils Absolute Auto 4.7 2.0 - 8.3 x10*3/uL [facility] Imm Gran Abs Auto 0.03 0.00 - 0.03 X10*3/uL [facility] Lymphocytes Absolute Auto 2.3 1.2 - 4.9 X10*3/uL [facility] Monocytes Absolute Auto 1.0 0.1 - 1.2 X10*3/uL [facility] Eosinophils Absolute Auto 0.1 0.0 - 0.4 X10*3/uL [facility] Basophils Absolute Auto 0.0 0.0 - 0.2 X10*3/uL [facility] NRBC Abs Auto 0.000 0.0 - 0.012 X10*3/uL [facility] Blood Venous blood specimen / Unknown 02/01/2025 2:59 PM EDT 02/01/2025 4:03 PM EDT us Edwige Headley MD LAB BLOOD ORDERABLES Final Re sult [facility] [address] [place] [phone] [phone] * HIV-1/2 Antigen and Antibodies, Fourth Generation, with Reflexes (02/01/2025 2:59 PM EDT) HIV AB/AG Nonreactive Nonreactive [facility] Comment:HIV-1 p24 Ag and/or HIV-1/HIV-2 Ab not detected.A test result that is nonreactive does not exclude thepossibility of exposure to or infection with HIV-1 and/orHIV-2. Nonreactive results in this assay for individualswith prior exposure to HIV-1 and/or HIV-2 may be due toantigen and antibody levels that are below the limit ofdetection of this assay.The TasspassniTIMPIK HIV Ag/Ab Combo assay result andsupplemental assay results should be interpreted inconjunction with the patient's clinical presentation,history and other laboratory results. If the results areinconsistent with clinical evidence, additional testing issuggested to confirm the result. Blood Venous blood specimen / Unknown 02/01/2025 2:59 PM EDT 02/01/2025 4:03 PM EDT us Edwige Headley MD LAB BLOOD ORDERABLES Final Re sult Performing Organization Address [facility]/ZIP Co de Phone Number [facility] [address] [place] [phone] * Sed Rate by Modified Westergren (02/01/2025 2:59 PM EDT) Erythrocyte Sedimentation Rate 11 0 - 20 MM/HR [facility] Comment:Patients with polycy themia and many hemoglobin abnormalitiesmay have depressed sed rates whereas patients with anemiamay have elevated sed rates. Blood Venous blood specimen / Unknown 02/01/2025 2:59 PM EDT 02/01/2025 4:14 PM EDT us Edwige Headley MD LAB BLOOD ORDERABLES Final Re sult Performing Organization Address [facility] Co de Phone Number [facility] [address] [place] [phone] * C-reactive Protein (02/01/2025 2:59 PM EDT) C Reactive Protein <0.04 < or = 0.50 mg/dL [facility] Blood Venous blood specimen / Unknown 02/01/2025 2:59 PM EDT 02/01/2025 4:03 PM EDT Edwige Headley MD LAB BLOOD ORDERABLES Final Re sult Performing Organization Address [facility] Co de Phone Number [facility] [address] [place] [phone] * Lactate Dehydrogenase (LD) (02/01/2025 2:59 PM EDT) Lactate Dehydrogenase 188 122 - 220 U/L [facility] Blood Venous blood specimen / Unknown 02/01/2025 2:59 PM EDT 02/01/2025 4:03 PM EDT Edwige Headley MD LAB BLOOD ORDERABLES Final Re sult Performing Organization Address [facility] Co ma Phone Number [facility] [address] [place] [phone] * Ferritin (02/01/2025 2:59 PM EDT) Ferritin 13 10 - 250 ng/mL [facility] Blood Venous blood specimen / Unknown 02/01/2025 2:59 PM EDT 02/01/2025 4:03 PM EDT Viviana Lou MD LAB BLOOD ORDERABLES Final Result Performing Organization Address [facility] Co de Phone Number [facility] [address] [place] [phone] * Lipid Panel, Standard (02/01/2025 2:59 PM EDT) Triglycerides 59 <150 mg/dL [facility] Comment:Desirable Triglyceri de: less than 150 mg/dLBorderline High Triglyceride 150-199 mg/dLHigh Triglyceride: 200-499 mg/dLVery High Triglyceride: greater than or equal to 5OO mg/dL Cholesterol 134 <200 mg/dL [facility] Comment:Desirable Cholestero l: less than 200 mg/dLBorderline High Cholesterol: 200-239 mg/dLHigh Cholesterol: greater than 239 mg/dL LDL Cholesterol Calculated 43 <100 mg/dL [facility] Comment:Desirable LDL: less than 100 mg/dLNear Optimal/Above Optimal LDL: 110- 129 mg/dLBorderline High LDL: 130-159 mg/dLHigh LDL: 160-189 mg/dLVery High LDL: greater than or equal to 190 mg/dL HDL Cholesterol 80 >40 mg/dL [facility] Comment:Desirable HDL: great er than 40 mg/dL Note: This HDL assay may give artificially low results in patients with liver disease. Blood Venous blood specimen / Unknown 02/01/2025 2:59 PM EDT 02/01/2025 4:03 PM EDT us Edwige Headley MD LAB BLOOD ORDERABLES Final Re sult [facility] [address] [place] [phone] * (ABNORMAL) Comprehensive Metabolic Panel (02/01/2025 2:59 PM EDT) Sodium 143 135 - 145 mmol/L [facility] Potassium 4.9 3.3 - 5.1 mmol/L [facility] Chloride 103 96 - 108 mmol/L [facility] Carbon Dioxide 33(H) 22 - 29 mmol/L [facility] Anion Gap 12 12 - 20 [facility] Urea Nitrogen (BUN) 17(H) 9 - 16 mg/dL [facility] Creatinine, Serum 0.76 0.5 - 1.4 mg/dL [facility] Estimated Glomerular Filt Rate >60 [facility] Comment:Chronic Kidney Disea se: Estimated GFR < 60 mL/min/1.84c4Uslgeh Kidney Disease: Estimated GFR < 15 mL/min/1.73m2 Glucose 123(H) 60 - 115 mg/dL [facility] Calcium 10.0 8.4 - 10.2 mg/dL [facility] Bilirubin, Total 0.7 0.0 - 1.0 mg/dL [facility] Aspartate Amino Transferase 29 5 - 31 U/L [facility] Alanine Aminotransferase 24 0 - 31 U/L [facility] Total Protein 7.7 6.5 - 8.0 g/dL [facility] Albumin Level 4.8 3.5 - 5.0 g/dL [facility] Alkaline Phosphatase 82 39 - 117 U/L [facility] Blood Venous blood specimen / Unknown 02/01/2025 2:59 PM EDT 02/01/2025 4:03 PM EDT Edwige Headley MD LAB BLOOD ORDERABLES Final Re sult [facility] [address] [place] [phone] * (ABNORMAL) POCT HGB A1C (09/27/2024 3:04 PM EDT) Hemoglobin A1C 6.2(A) 4.0 - 6.0 % QC Media Lot # [id number] Lot# Expiration Date Blood 09/27/2024 3:04 PM EDT Edwige Headley MD POINT OF CARE TEST ENTER/EDIT ORDERABLES Final Result * Albumin, Random Urine W/Creatinine (07/18/2024 9:57 AM EST) Creatinine, Urine 47.58 mg/dL [facility] Microalbumin Urine 13.0 mg/L [facility] Microalbum Creatinine Ratio Ur 27.3 <30 ug/mg cr [facility] Comment:Albumin/Creatinine R atio Reference Ranges: Normal: < 30 ug/mg creatinine Microalbuminuria: 30 - 300 ug/mg creatinineClinical Albuminuria: > 300 ug/mg creatinine Urine (Urine, Random) 07/18/2024 9:57 AM EST 07/18/2024 2:15 PM EST us Radha Renee MD LAB URINE ORDERABLES Final Result Performing Organization Address City/[facility]/ZIP Co de Phone Number [facility] [address] [place] [phone] * Hepatitis C Antibody with Reflex [...] BLOOD ORDERABLES Final Result Performing Organization Address City/[facility] Co de Phone Number [facility] [address] [place] [phone] from Last 3 Months or Most Recently Relevant to Health Maintenance Insurance [facility] Care Teams Port Cdl A Driver Relationship Specialty Start Date End Date Edwige Headley MD [address] [place] [address] PCP - General Family Medicine 08/21/22
--- OUTSIDE RECORDS SUMMARY | 2025-03-20 15:08 | XMS_ITS | Encounter Summary ---
Author Organization [employer] Address [address] [place] [address] Care Team Providers Care Junior Accountant Bookkeeper Name Role Phone Edwige Headley MD Primary Care Provider [phone] Reason for Visit * Reason Onset Date Comments Appointment Request 01/24/2025 Encounter Details Date Type Department Care Team ([facility] st Contact Info) Description 01/24/2025 Telephone [facility] [address] [place] [address] Edwige Headley MD [address] [place] [address] Appointment Request Social History Tobacco Use Types Packs/Day Years Used Date Smoking Tobacco: Never Depression Answer Date Recorded Patient Health Questionnaire-9 Score 12 01/12/2025 Patient Health Questionnaire-9 Score 12 01/12/2025 Last PHQ-9: Questionnaire Data Not on file 0 01/12/2025 Housing Stability Answer Date Recorded What is your housing situation today? I have mercedes mierles 03/02/[address] you li [...] back regarding prior message. Contact pt at [phone] * Telephone Encounter - Tiburcio Thibodeaux - 01/24/2025 9:21 AM EDT Tc from pt requesting to reschedule SAS SQL DEVELOPER visit from 02/01. Please contact pt at [phone]. (Maldivian Speaker) documented in this encounter Plan of Treatment Upcoming Encounters Date Type Department Care Team ([facility] st Contact Info) Description 04/26/2025 11:00 AM EST Clinical Support [facility] [address] [place] [address] Maria Guadalupe Rodríguez, RN [address] [place] [address] documented as of this encounter Goals Goal [...] documented as of this encounter Care Teams Junior Accountant Bookkeeper Relationship Specialty Start Date End Date Edwige Headley MD [address] [place] [address] PCP - General Family Medicine 08/21/22 documented as of this encounter
== END 2025-03-20 12:19 | disposition home or self-care (01) ==
LOC: HO.XRAY 12:18
PROVIDERS: PCP Internal Medicine; Visit Provider Internal Medicine
DX: M54.50 Low back pain, unspecified (principal)
CPT/HCPCS: 72110

== ENCOUNTER → 2025-03-20 12:22 | Outpatient (BNV) | payer OTHER, SELFPAY | PROVIDERS: PCP Internal Medicine; Visit Provider Radiology Diagnostic Radiology | DX: M54.59 Other low back pain (principal) | CPT/HCPCS: 72110 ==

== ENCOUNTER 2025-04-04 13:34 | Outpatient (AMB) | payer OTHER, SELFPAY ==
--- NOTE | 2025-04-04 13:40 | A.OFFVIS_ITS ---
Vital Signs 04/04/25 13:42 Height 5 ft Weight 119 lb BMI 23.2 Intake Visit Reasons: OV: right middle trigger finger, last inj 01/31/25 Intake Note: Ed is a 79 year old right hand dominant female who presents today for a New Problem Visit complaining of Right Middle Finger Locking & Catching. She was last seen on 01/31/25 where she was given a right middle trigger finger injection. Patient states the injection only helped for about 1 week. She is interested on discussing a Right Middle Trigger Finger Release. Patient has a history of Diabetes Mellitus. Of note, she is also complaining of Left Ring Finger Pain status post Left Index & Left Ring Trigger Finger Release, DOS: 01/08/[address] Beckford. Musical Therapist Required: No Allergies pregabalin (From Lyrica) Allergy (Intermediate, Verified 04/04/25 13:47) Rash HPI HPI OV: right middle trigger finger, last inj 01/31/25: Details: Ed is a 79 year old right hand dominant female who presents today for a New Problem Visit complaining of Right Middle Finger Locking & Catching. She was last seen on 01/31/25 where she was given a right middle trigger finger injection. Patient states the injection only helped for about 1 week. She is interested on discussing a Right Middle Trigger Finger Release. Patient has a history of Diabetes Mellitus. Patient states she would like to hold off on any surgery until after the holidays. Of note, she is also complaining of Left Ring Finger Pain status post Left Index & Left Ring Trigger Finger Release, DOS: 01/08/[address] Beckford. [facility] Medical History Atherosclerotic cardiovascular disease PVD (peripheral vascular disease) Breast nodule Urinary incontinence Osteoporosis Dementia in Alzheimer's disease Chronic diastolic (congestive) heart failure Hypertension Vitamin D deficiency Carpal tunnel syndrome Cervical disc disorder CKD (chronic kidney disease), stage II TONY (generalized anxiety disorder) Vertigo CAD (coronary artery disease) GERD (gastroesophageal reflux disease) Migraine Diabetes mellitus Asthma Surgical History H/O hand surgery Hx of cardiac catheterization History of hernia repair History of left inguinal hernia repair History of right inguinal hernia repair History of cholecystectomy Hx of colonoscopy History of esophagogastroduodenoscopy (EGD) Family History Mother Heart problem Arthritis Social History Household Members: Spouse, Family and Children Housing: House Alcohol intake: never Patient Tobacco Use Status: Never used Tobacco Second Hand Smoke Exposure: No service: No Review of Systems Const All systems reviewed & are unremarkable except as noted in HPI and below Physical Exam Vital Signs: BMI result Body Mass Index 23.2 Extrem Other: Patient is alert, oriented, and in no acute distress. Neuro: Normal sensation of the tips of all digits of the left hand at this time Vascular: Cap refill brisk Pain: Tenderness to palpation of the A1 patricia of right middle finger Discomfort with making a closed fist in the MCP joints ROM: There is a visible and palpable locking and catching of the right middle finger No further visible or palpable locking and catching With encouragement, patient is able to make a closed fist with the left hand Skin: Well approximated and well healed incision sites noted over the A1 pulleys of the left index and ring fingers No lacerations or abrasions. General: No ecchymosis, erythema, or evidence of infection. Psych: Appears grossly normal Affect normal Attitude cooperative Assessment & Plan Assessment & Plan (1) Trigger finger, right middle finger: Code(s): M65.331 - Trigger finger, right middle finger Category: Medical Plan 1. Right middle finger trigger finger Patient is educated about this condition Patient is educated about the typical treatment course Previous injection was ineffective Patient would like to proceed with surgery, however she would like to hold off until after the holidays, as she will have to be cooking and posting for the holiday season At the patient is diabetic, and will likely have new lab values by the time surgery were to roll around, I feel it is best to hold off on booking the patient for surgery until after the holidays Therefore, patient is booked an appointment to see me in May to discuss a right middle finger trigger release Patient understands this and is amenable to this plan Follow-up in May Coding Level of Care Code Est Pt Level 3 (76445) Diagnoses Trigger finger, right middle finger M65.331
[2025-04-04 13:42] VITALS: BMI 23.2
--- OUTSIDE RECORDS SUMMARY | 2025-04-05 01:34 | XMS_ITS | Encounter Summary ---
Author Organization [employer] Address [address] [place] [address] Care Team Providers Care Rod And Tube Straightener Name Role Phone Edwige Headley MD Primary Care Provider [phone] Reason for Visit * Reason Onset Date Comments Med Refill 01/18/2025 Encounter Details Date Type Department Care Team (Late st Contact Info) Description 01/18/2025 Telephone [facility] MEDICINE [address] [place] [address] Edwige Headley MD [address] [place] [address] Med Refill Social History Tobacco Use Types [...] MG tablet To be sent to: - [facility] - [place], [place] - [address] [facility] documented in this encounter Plan of Treatment Upcoming Encounters Date Type Department Care Team ([facility] st Contact Info) Description 04/26/2025 11:00 AM EST Clinical Support [facility] [address] [place] [address] Maria Guadalupe Rodríguez RN [address] [place] [address] 06/07/2025 1:30 PM EST Office Visit [facility] [address] [place] [address] Edwige Headley MD [address] [place] [address] documented as of this encounter Goals Goal Patient Goal Type Associated Problems Recent Progress Patient-Stated? Author Use the inhalers as prescribed by provider; Flovent HFA scheduled and albuterol as needed General No Marcel Garcia, PharmD Take your medication every day Lifestyle No Radha, Marcel, PharmD documented as of this encounter Visit Diagnoses Not on filedocumented in this encounter Additional Health Concerns Assessment Noted Time PHQ-9 Depression Total Score: 12 025 3:39 PM EDT documented as of this encounter Care Teams Rod And Tube Straightener Relationship Specialty Start Date End Date Edwige Headley MD [address] [place] [address] PCP - General Family Medicine 08/21/22 documented as of this encounter
--- OUTSIDE RECORDS SUMMARY | 2025-04-05 01:35 | XMS_ITS | Encounter Summary ---
Author Organization [employer] Address [address] [place] [address] Care Team Providers Care District Gauger Name Role Phone Edwige Headley MD Primary Care Provider [phone] Reason for Visit * Reason Onset Date Comments Medical Necessity Form 10/20/2024 Encounter Details Date Type Department Care Team ([facility] st Contact Info) Description 10/20/2024 Telephone [facility] MEDICINE [address] [place] [address] Edwige Headley MD [address] [place] [address] Medical Necessity Form Social History Tobacco Use [...] - 10/20/2024 10:29 AM EDT TC from [facility] with [facility] requesting a medical necessity form regarding a stair lift. She stated that provider agreement is required for processing and requested the form be faxed to [phone]. documented in this encounter Plan of Treatment Upcoming Encounters Date Type Department Care Team (Late st Contact Info) Description 04/26/2025 11:00 AM EST Clinical Support [facility] & PEDS [address] [place] [address] Maria Guadalupe Rodríguez, AC [address] [place] [address] 06/07/2025 1:30 PM EST Office Visit [facility] [address] [place] [address] Edwige Headley MD [address] [place] [address] documented as of this encounter Goals Goal [...] documented as of this encounter Care Teams District Gauger Relationship Specialty Start Date End Date Edwige Headley MD [address] [place] [address] PCP - General Family Medicine 08/21/22 documented as of this encounter
--- OUTSIDE RECORDS SUMMARY | 2025-04-05 01:35 | XMS_ITS | Encounter Summary ---
Author Organization [employer] Address [address] [place] [address] Care Team Providers Care Curtain Worker Name Role Phone Edwige Headley MD Primary Care Provider [phone] Reason for Visit * Reason Onset Date Comments PT1 03/13/2025 Encounter Details Date Type Department Care Team ([facility] st Contact Info) Description 03/13/2025 Telephone [facility] MEDICINE [address] [place] [address] Edwige Headley MD [address] [place] [address] PT1 Social History Tobacco Use Types Packs/Day [...] 11:00 AM EST Clinical Support [facility] [address] [place] [address] Maria Guadalupe Rodríguez, RN [address] [place] [address] 06/07/2025 1:30 PM EST Office Visit [facility] [address] [place] [address] Edwige Headley MD [address] [place] [address] documented as of this encounter Goals Goal [...] documented as of this encounter Care Teams Curtain Worker Relationship Specialty Start Date End Date Edwige Headley MD [address] [place] [address] PCP - General Family Medicine 08/21/22 documented as of this encounter
--- OUTSIDE RECORDS SUMMARY | 2025-04-05 01:35 | XMS_ITS | Encounter Summary ---
Author Organization [employer] Address [address] [place] [address] Care Team Providers Care Information Operator Name Role Phone Edwige Headley MD Primary Care Provider [phone] Reason for Visit * Reason Onset Date Comments Appointment Request 01/24/2025 Encounter Details Date Type Department Care Team ([facility] st Contact Info) Description 01/24/2025 Telephone [facility] MEDICINE [address] [place] [address] Edwige Headley MD [address] [place] [address] Appointment Request Social History Tobacco Use Types [...] back regarding prior message. Contact pt at [phone] * Telephone Encounter - Tiburcio Thibodeaux - 01/24/2025 9:21 AM EDT Tc from pt requesting to reschedule CASHIER HOST/HOSTESS visit from 02/01. Please contact pt at [phone]. (Luxembourgish Speaker) documented in this encounter Plan of Treatment Upcoming Encounters Date Type Department Care Team ([facility] st Contact Info) Description 04/26/2025 11:00 AM EST Clinical Support [facility] MED [facility] PEDS [address] [place] [address] Maria Guadalupe Rodríguez RN [address] [place] [address] 06/07/2025 1:30 PM EST Office Visit [facility] PEDS [address] [place] [address] Edwige Headley MD [address] [place] [address] documented as of this encounter Goals Goal [...] documented as of this encounter Care Teams Information Operator Relationship Specialty Start Date End Date Edwige Headley MD [address] [place] [address] PCP - General Family Medicine 08/21/22 documented as of this encounter
--- OUTSIDE RECORDS SUMMARY | 2025-04-05 01:35 | XMS_ITS | Encounter Summary ---
Author Organization [employer] Address [address] [place] [address] Care Team Providers Care Chute Worker Name Role Phone Edwige Headley MD Primary Care Provider [phone] Reason for Visit * Reason Comments Med Refill Encounter Details Date Type Department Care Team ([facility] st Contact Info) Description 10/16/2023 Refill [facility]EDS [address] [place], [place] [phone] Edwige Headley MD [address] [place] [address] Social History Tobacco Use Types Packs/Day Years [...] Description 04/26/2025 11:00 AM EST Clinical Support [facility] & PEDS [address] [place] [address] Maria Guadalupe Rodríguez, AC [address] [place] [address] 06/07/2025 1:30 PM EST Office Visit [facility] MED & PEDS [address] [place] [address] Edwige Headley MD [address] [place] [address] documented as of this encounter Goals Goal [...] documented as of this encounter Care Teams Chute Worker Relationship Specialty Start Date End Date Edwige Headley MD [address] [place] [address] PCP - General Family Medicine 08/21/22 documented as of this encounter
--- OUTSIDE RECORDS SUMMARY | 2025-04-05 01:35 | XMS_ITS | Encounter Summary ---
Author Organization [employer] Address [address] [facility] 7t [place] [address] Care Team Providers Care Dye Automation Operator Name Role Phone Edwige Headley MD Primary Care Provider [phone] Encounter Details Date Type Department Care Team ([facility] Contact Info) Description 11/03/2022 Abstract [place] [employer] [address] [place], [place] [phone] Edwige Headley MD [address] [place], [place] [phone] Social History Tobacco Use Types Packs/Day Years [...] [facility] Contact Info) Description 04/26/2025 11:00 AM EST Clinical Support [facility] PEDS [address] [place], [place] [phone] Maria Guadalupe Rodríguez RN [address] [place] [address] 06/07/2025 1:30 PM EST Office Visit [facility] MED & PEDS [address] [place] [address] Edwige Headley MD [address] [place] [address] documented as of this encounter Goals Goal [...] Noted Time PHQ-9 Depression Total Score: 24 08/21/ 023 9:14 AM EDT documented as of this encounter Care Teams Dye Automation Operator Relationship Specialty Start Date End Date Edwige Headley MD [address] [place] [address] PCP - General Family Medicine 08/21/22 documented as of this encounter
--- OUTSIDE RECORDS SUMMARY | 2025-04-05 01:35 | XMS_ITS | Encounter Summary ---
Author Organization [employer] Address [address] [place] [address] Care Team Providers Care Stripping Shovel Oiler Name Role Phone Edwige Headley MD Primary Care Provider [phone] Reason for Visit * Reason Onset Date Comments Hospital Follow-up 05/25/2024 Encounter Details Date Type Department Care Team ([facility] st Contact Info) Description 05/25/2024 Telephone [facility] MEDICINE [address] [place] [address] Edwige Headley MD [address] [place] [address] Hospital Follow-up Social History Tobacco Use Types [...] from pt requesting a HDF appt. Hospital: [facility] Date of admission: 05/16/2024 Discharge date: 2024 Diagnosed: Discuss with pt. *Send message to [facility] Clinical Care Coordinators documented in this encounter Plan of Treatment Upcoming Encounters Date Type Department Care Team (Late st Contact Info) Description 04/26/2025 11:00 AM EST Clinical Support [facility] MED & PEDS [address] [place] [address] Maria Guadalupe Rodríguez RN [address] [place] [address] 06/07/2025 1:30 PM EST Office Visit [facility] MED [facility] PEDS [address] [place] [address] Edwige Headley MD 505 [place] [address] documented as of this encounter Goals Goal [...] documented as of this encounter Care Teams Stripping Shovel Oiler Relationship Specialty Start Date End Date Edwige Headley MD [address] [place] [address] PCP - General Family Medicine 08/21/22 documented as of this encounter
--- OUTSIDE RECORDS SUMMARY | 2025-04-05 01:35 | XMS_ITS | Encounter Summary ---
Author Organization [employer] Address [address] [place] [address] Care Team Providers Care Lumber Tallier Name Role Phone Edwige Headley MD Primary Care Provider [phone] Reason for Visit * Reason Onset Date Comments Med Refill 11/13/2024 Encounter Details Date Type Department Care Team ([facility] st Contact Info) Description 11/13/2024 Telephone [facility] MEDICINE [address] [place] [address] Edwige Headley MD [address] [place] [address] Med Refill Social History Tobacco Use Types [...] 50 MG tablet To be sent to: [facility] pharmacy documented in this encounter Plan of Treatment Upcoming Encounters Date Type Department Care Team (Late st Contact Info) Description 04/26/2025 11:00 AM EST Clinical Support [facility] MED & PEDS [address] [place] [address] Maria Guadalupe Rodríguez RN [address] [place] [address] 06/07/2025 1:30 PM EST Office Visit [facility] MED [facility] PEDS [address] [place] [address] Edwige Headley MD [address] [place] [address] documented as of this encounter Goals Goal [...] documented as of this encounter Care Teams Lumber Tallier Relationship Specialty Start Date End Date Edwige Headley MD [address] [place] [address] PCP - General Family Medicine 08/21/22 documented as of this encounter
--- OUTSIDE RECORDS SUMMARY | 2025-04-05 01:35 | XMS_ITS | Encounter Summary ---
Author Organization [employer] Address [address] [place] [address] Care Team Providers Care Section Repairer Name Role Phone Edwige Headley MD Primary Care Provider [phone] Reason for Visit * Reason Onset Date Comments Appointment Request 04/06/2024 Encounter Details Date Type Department Care Team ([facility] st Contact Info) Description 04/06/2024 Telephone [facility] MEDICINE [address] [place] [address] Edwige Headley MD [address] [place] [address] Appointment Request Social History Tobacco Use Types [...] somewhere else. Contac pt to r/s at [phone] documented in this encounter Plan of Treatment Upcoming Encounters Date Type Department Care Team (Late st Contact Info) Description 04/26/2025 11:00 AM EST Clinical Support [facility] MED & PEDS [address] [place] [address] Maria Guadalupe Rodríguez RN [address] [place] [address] 06/07/2025 1:30 PM EST Office Visit [facility] MED & PEDS [address] [place] [address] Edwige Headley MD [address] [place] [address] documented as of this encounter Goals Goal [...] documented as of this encounter Care Teams Section Repairer Relationship Specialty Start Date End Date Edwige Headley MD [address] [place] [address] PCP - General Family Medicine 08/21/22 documented as of this encounter
--- OUTSIDE RECORDS SUMMARY | 2025-04-05 01:35 | XMS_ITS | Encounter Summary ---
Author Organization [employer] Address [address] [place] [address] Care Team Providers Care Pediatric Oncologist Name Role Phone Edwige Headley MD Primary Care Provider [phone] Reason for Visit * Reason Comments Med Refill Encounter Details Date Type Department Care Team ([facility] st Contact Info) Description 04/01/2025 Refill [facility] MED & PEDS [address] [place], [place] [phone] Edwige Headley MD [address] [place] [address] Fibromyalgia Social History Tobacco Use Types Packs/Day [...] 11:00 AM EST Clinical Support [facility] MED & PEDS [address] [place] [address] Maria Guadalupe Rodríguez, AC [address] [place] [address] 06/07/2025 1:30 PM EST Office Visit [facility] MED & PEDS [address] [place] [address] Edwige Headley MD [address] [place] [address] documented as of this encounter Goals Goal Patient Goal Type Associated Problems Recent Progress Patient-Stated? Author Use the inhalers as prescribed by provider; Flovent HFA scheduled and albuterol as needed General No Marcel Garcia PharmD Take your medication every day Lifestyle No Marcel Garica PharmD documented as of this encounter Visit Diagnoses Diagnosis Fibromyalgia Unspecified myalgia and myositis documented in this encounter Additional Health Concerns Assessment Noted Time PHQ-9 Depression Total Score: 12 025 3:39 PM EDT documented as of this encounter Care Teams Pediatric Oncologist Relationship Specialty Start Date End Date Edwige Headley MD [address] [place] [address] PCP - General Family Medicine 08/21/22 documented as of this encounter
--- OUTSIDE RECORDS SUMMARY | 2025-04-05 01:35 | XMS_ITS | Encounter Summary ---
Author Organization [employer] Address [address] [place] [address] Care Team Providers Care Worksite Wellness Practitioner Name Role Phone Edwige Headley MD Primary Care Provider [phone] Reason for Visit * Reason Onset Date Comments Lab Orders 07/06/2024 Encounter Details Date Type Department Care Team ([facility] st Contact Info) Description 07/06/2024 Telephone [facility] [address] [place] [address] Edwige Headley MD [address] [place] [address] Lab Orders Social History Tobacco Use Types [...] TC x 3 placed to pt via [employer] translator interpreter (Ace ID#[id number]) to inform a tuberculosis lab order was placed by the provider for her to have done at her convenience. Pt verbalized understanding and deniesquestions or concerns at this time. * Telephone Encounter - Mau Overton - 07/06/2024 4:20 PM EST Tc from pt returning call. Pt needs an Jewel Bearing Turner. * Telephone Encounter - Zoë Dorantes RN - 07/06/2024 3:33 PM EST TC placed to pt via [employer] translator interpreter (ID#[id number]) to inform a tuberculosis lab order was [...] [facility] [address] [place] [address] Maria Guadalupe Rodríguez RN [address] [place], [place] 06/07/2025 1:30 PM EST Office Visit [facility] [address] [place] [address] Edwige Headley MD [address] [place] [address] documented as of this encounter Goals Goal [...] [place] T Spot TB Negative Negative [facility] Comment:A negative test resu lt [...] as aquantitative test. TS PANEL A 0 [facility] TS PANEL B 0 [facility] Negative Control Passed [facility] Positive Control Passed [facility] Comment:For additional infor nika, please refer tohttp://education.[employer]/faq/LTP090(This link is being provided for informational/educational purposes only.)THIS TEST WAS PERFORMED AT:[employer] [place] [id number] [place] [address]NLTQMYKVIRGINIA DAN MD,PHD 07/07/2024 9:23 AM EST 07/07/2024 1:55 PM EST us Edwige Headley MD LAB BLOOD ORDERABLES Final Re sult [facility] [address] [place] [address] [phone] documented in this encounter Visit Diagnoses Diagnosis Encounter for screening for respiratory tuberculosis documented in this encounter Additional Health Concerns Assessment Noted Time PHQ-9 Depression Total Score: 10 024 12:52 PM EDT documented as of this encounter Care Teams Worksite Wellness Practitioner Relationship Specialty Start Date End Date Edwige Headley MD [address] [place] [address] PCP - General Family Medicine 08/21/22 documented as of this encounter
--- OUTSIDE RECORDS SUMMARY | 2025-04-05 01:35 | XMS_ITS | Clinical Summary ---
Author Organization [employer] Address [address] [facility] [address] [place] [address] Care Team Providers Care [employer] Name Role Phone Edwige Headley MD Primary Care Provider Allergies Active Allergy Reactions Criticality Noted Date [...] each 023 Active Lancets (OneTouch Delica Plus [id number]) misc 1 Units in the morning. Please [...] TIMES DAILY DIRECTED 350 g 1 Active amLODIPine (Norvasc) 5 MG tabletIndicatio ns:Raynaud's phenomenon without gangrene Take 1 tablet (5 mg) by mouth Once per day. 30 tablet 11 2025 Active gabapentin (Neurontin) 300 MG capsule TAKE 1 CAPSULE BY MOUTH THREE TIMES DAILY 90 capsule Active butalbital-acet aminophen-caffe ine 50-325-40 MG tabletIndicatio [...] drop in each eye twice daily Active naloxone (Narcan) 4 mg/0.1 mL nasal spray Administer 1 spray (4 mg) into affected nostril(s) if needed for opioid reversal. May repeat every 2-3 minutes if needed, alternating nostrils, until medical assistance becomes available. 2 each 025 2025 Active Diclofenac Sodium 1 % gelIndications: Acute left-sided low back pain without sciatica APPLY 2 GRAMS TOPICALLY TO AFFECTED AREA(S) THREE TIMES DAILY 100 g 2 025 Active famotidine (Pepcid) 40 MG tablet TAKE 1 TABLET BY MOUTH AT BEDTIME 90 tablet 1 Active OneTouch Ultra Test test strip USE DIRECTED TO [...] by mouth 3 times daily. 270 tablet 025 Active montelukast (Singulair) 10 MG tablet Take 1 tablet (10 mg) by mouth at bedtime. 90 tablet 025 Active calcium carbonate 1500 (600 Ca) MG tablet Take 1 tablet (1,500 mg) by mouth with breakfast and with evening meal. 180 tablet 025 Active magnesium 250 MG tabletIndicatio ns:Pain in both lower extremities 1 tab po at bedtime prn leg discomfort at night 30 tablet 2 025 Active memantine (Namenda) 5 MG tabletIndicatio ns:Alzheimer's disease, unspecified (CODE) ([facility]) TAKE 1 TABLET BY MOUTH TWICE DAILY IN THE MORNING AND IN THE EVENING 60 tablet 2 025 Active losartan (Cozaar) 25 MG tablet TAKE 1 TABLET BY MOUTH EVERY MORNING 90 tablet 1 025 Active TRUEplus Lancets 33G miscIndications :Type 2 diabetes mellitus with hyperglycemia, without long-term current use of insulin ([facility]) USE THREE TIMES DAILY TO TEST BLOOD SUGAR DIRECTED 100 each 3 025 Active sucralfate (Carafate) 1 GM/10ML suspension TAKE 10mls BY MOUTH EVERY 8 HOURS NEEDED WITH FOOD 900 mL 1 025 Active traMADol (Ultram) 50 MG tabletIndicatio ns:Fibromyalgia Take 1 tablet (50 mg) by mouth every 12 (twelve) hours if needed for severe pain. 56 tablet Active lidocaine (Lidoderm) 5 % patch APPLY 1 PATCH TOPICALLY LEAVE ON FOR 12 HOURS AND OFF FOR 12 HOURS DIRECTED BY MD Hamm patch 5 Active cyclobenzaprine (Flexeril) 10 MG tabletIndicatio ns:Fibromyalgia TAKE 1 TABLET BY MOUTH THREE TIMES DAILY FOR 10 DAYS 30 tablet 5 5:15 PM EST Active celecoxib (CeleBREX) 100 MG capsuleIndicati ons:Fibromyalgi a TAKE 1 CAPSULE BY MOUTH TWICE DAILY 60 capsule 1 Active Aspirin Low Dose 81 MG EC tablet TAKE 1 TABLET BY MOUTH EVERY MORNING 90 tablet 1 Active lidocaine (Lidoderm) 5 % patch APPLY 1 PATCH TOPICALLY LEAVE ON FOR 12 HOURS AND OFF FOR 12 HOURS DIRECTED BY MD Hamm patch 5 024 2024 Discontinued(R eorder (will not trigger notification to Pharmacy)) Aspirin Low Dose 81 MG EC tablet TAKE 1 TABLET BY MOUTH EVERY MORNING 90 tablet 1 025 2024 Discontinued cyclobenzaprine (Flexeril) 10 MG tabletIndicatio ns:Fibromyalgia TAKE 1 TABLET BY MOUTH THREE TIMES DAILY FOR 10 DAYS 30 tablet 025 2024 Discontinued(R eorder (will [...] Trelegy , which was prescribed by a organ recovery coordinator. Oxygen saturation appears stable at rest, but there is a need to assess for desaturation with ambulation. Plan: - Continue Trelegy 262.5/25 as prescribed by organ recovery coordinator - Assess oxygen saturation with ambulation - Consider low-dose chronic steroids (to be discussed with organ recovery coordinator) - Follow up with organ recovery coordinator on the of the current month Bilateral [...] swallow test came back normal. Referred to drag down Assessment & Plan (07/20/2023 9:51 PM EST): [...] be prescribed steroids. Recommended patient to call Lighting Engineering Technician to schedule an appointment to get further assistance. Alzheimer's dementia ([facility]) 08/21/2022 Assessment & Plan (03/16/2024 2:25 PM [...] PM Edwige Headley MD [facility] Assessment & Plan (03/19/2023 3:58 PM [...] Encounters Date Type Department Care Team Description 04/04/2025 Refill [facility] [address] [place] [address] Teressa Maher MD 04/01/2025 Refill [facility] [address] [place] [address] Edwige Headley MD Fibromyalgia 03/21/2025 Telephone [facility] [address] [place] [address] Edwige Headley MD Med Refill 03/21/2025 Results Follow-Up [facility] [address] [place] [address] Radha Renee MD XR Lumbar Spine Complete 4+ Views 03/20/2025 Refill [facility] [address] [place] [address] Edwige Headley MD 03/20/2025 Refill [facility] [address] [place] [address] Maria Guadalupe Rodríguez RN Fibromyalgia 03/20/2025 Telephone [facility] [address] [place] [phone] Edwige Headley MD Med Refill 03/13/2025 Patient Outreach [facility] [address] [place] [phone] Edwige Headley MD Care Coordination (W outreach for [facility] [id number] ral completed /) 03/13/2025 Telephone [facility] [address] [place] [address] Edwige Haedley MD PT1 02/24/2025 [address]ill [address] [place] [address] Teressa Maher MD 02/21/2025 11:00 AM EDT Clinical Support [facility] [address] [place] [address] Maria Guadalupe Rodríguez RN Long-term current use of opiate analgesic (Primary Dx) 02/21/2025 Travel 02/21/2025 Telephone [facility] [address] [place] [address] Maria Guadalupe Rodríguez RN 02/16/2025 Refill [facility] [address] [place] [address] Edwige Headley MD Fibromyalgia 02/07/2025 Refill [facility] [address] [place] [address] Teressa Maher MD 02/06/2025 Refill [facility] [address] [place] [phone] Teressa Maher MD Type 2 diabetes mellitus with hyperglycemia, without long-term current use of insulin ([facility]) 02/03/2025 Refill [facility] [address] [place] [address] Edwige Headley MD Fibromyalgia; Alzheimer's disease, unspecified (CODE) ([facility]) 02/02/2025 Results Follow-Up [facility] [address] [place] [phone] Viviana Lou MD Ferritin, Vitamin B12/Folate, Serum Panel 02/01/2025 2:20 PM EDT Office Visit [facility] [address] [place] [address] Viviana Lou MD Pain in both lower extremities (Primary Dx) 02/01/2025 Travel 01/30/2025 Telephone [facility] [address] [place] [address] Maria Guadalupe Rodríguez RN 01/24/2025 Telephone [facility] [address] [place] [phone] Edwige Headley MD Appointment Request 01/18/2025 Refill [facility] [address] [place] [address] Edwige Headley MD Fibromyalgia 01/18/2025 Telephone [facility] [address] [place] [address] Edwige Headley MD Med Refill 01/17/2025 Refill [facility] [address] [place] [address] Radha Renee MD 01/16/2025 Refill [facility] [address] [place] [address] Edwige Headley MD 01/15/2025 Refill [facility] [address] [place] [address] Radha Renee MD 01/12/2025 3:15 PM EDT Office Visit [facility] [address] [place] [address] Edwige Headley MD Iliotibial band syndrome, left (Primary Dx); Atrophic vaginitis 01/12/2025 Travel 01/11/2025 Telephone [facility] [address] [place] [address] Edwige Headley MD Chart Prep 01/05/2025 Patient Outreach [facility] [address] [place] [phone] Edwige Headley MD Pre-visit Planning ([facility] screening completed on 09/19/24 ) from Last 3 Months Immunizations Immunization Administration [...] 11:00 AM EST Clinical Support [facility] [address] [place] [address] Maria Guadalupe Rodríguez RN [address] [place] [address] 06/07/2025 1:30 PM EST Office Visit [facility] [address] [place] [address] Edwige Headley MD [address] [place] [address] Health Maintenance Due Date Last Done Comments [...] current use of insulin ([facility]) HIV 1/2 ANTIGEN/ANTIBODY, FOURTH GENERATION W/RFL Routine [...] PM EST Narrative 03/20/2025 1:23 PM EST [address] [address] XRay Report Signed Patient: Ed Holguin MR#: [id number] : 1945 Acct:[id number] Age/Sex: 79 / F ADM Date: 03/20/25 Loc: HO.XRAY Attending Dr: Radha Renee MD Ordering Physician: Radha Renee MD Date of Service: 03/20/25 Procedure(s): XR lumbar spine 4V min Accession Number(s): [id number] cc: Radha Renee MD Reason for Exam: [...] by: Lee Jacobson MD 03/20/2025 01:21 PM [facility] Dictated By: Lee Smith MD Signed By: <Electronically signed by Lee Geller MD in OV> 03/20/25 1321 DD/ 1302 TD/TT: 03/20/25 1313 Turning Sander Tender: Procedure Note Donotuseinterpreter, Image - 03/20/[address] [address] XRay Report Signed Patient: Arthur Holguin#: M [id number] : 1945cct:[id number] Age/Sex: 79 / FADM Date: 03/20/25 Loc: HO.XRAY Attending Dr: Radha Renee MD Ordering Physician: Radha Renee MD Date of Service: 03/20/25 Procedure(s): XR lumbar spine 4V min Accession Number(s): [id number] cc: Radha Renee MD Reason for Exam: [...] by: Lee Jacobson MD 03/20/2025 01:21 PM [facility] Dictated By: Lee Smith MD Signed By: <Electronically signed by Lee Geller MDin OV> 03/20/25 1321 DD/ 1302 TD/TT: 03/20/25 1313 Turning Sander Tender: Radha Renee MD IMG XR PROCEDURES Final [...] AM EDT . Internal Pass Control Lot# [id number] Exp: 03-16-26 Edwige Headley MD POINT OF CARE TEST ENTER/EDIT ORDERABLES Final Result * TSH W/Reflex to FT4 (02/01/2025 3:30 PM EDT) TSH reflex Free T4 0.89 0.32 - 4.0 uIU/mL [facility] Blood Venous blood specimen / Unknown 02/01/2025 3:30 PM EDT 02/01/2025 4:03 PM EDT Edwige Headley MD LAB BLOOD ORDERABLES Final Re sult Performing Organization Address [facility] Co de Phone Number [facility] [address] [place] [phone] * Vitamin B12/Folate, Serum Panel (02/01/2025 2:59 PM EDT) Vitamin B12 719 200 - 900 pg/mL [facility] Comment:NORMAL 200-900 PG/ML INDETERMINATE 160-199 PG/ML DEFICIENT < 160 PG/ML Folate 7.9 > or = 4.0 ng/mL [facility] Comment:Reference Values:> o r = [...] Final Result Performing Organization Address [facility]/ZIP Co de Phone Number [facility] [address] [place] [phone] * (ABNORMAL) CBC auto differential (02/01/2025 2:59 PM EDT) White Blood Count 8.1 4.8 - 10.8 X10*3/uL [facility] Red Blood Count 4.28 4.20 - 5.50 X10*6/uL [facility] Hemoglobin 12.7 12.0 - 16.0 g/dl [facility] Hematocrit 37.7 37.0 - 47.0 % [facility] Mean Corpuscular Volume 88.1 80.0 - 98.0 fL [facility] Mean Corpuscular Hemoglobin 29.7 27.0 - 33.0 pg [facility] Mean Corpuscular HGB Conc 33.7 31.0 - 35.0 g/dl [facility] Red Cell Distribution Width 15.1 11.0 - 16.0 % [facility] Platelet Count 232 160 - 400 X10*3/uL [facility] Mean Platelet Volume 11.2 9.4 - 12.3 fL [facility] Neutrophils Percent Auto 58.3 45 - 73 % [facility] Imm Gran Pct Auto 0.4 0.0 - 0.4 % [facility] Lymphocytes Percent Auto 28.0 20 - 40 % [facility] Monocytes Percent Auto 12.2(H) 2 - 11 % [facility] Eosinophils Percent Auto 0.6 0 - 4 % [facility] Basophils Percent Auto 0.5 0 - 2 % [facility] NRBC Pct Auto 0.0 0.0 - 0.2 /100WBC [facility] Neutrophils Absolute Auto 4.7 2.0 - 8.3 x10*3/uL [facility] Imm Gran Abs Auto 0.03 0.00 - 0.03 X10*3/uL [facility] Lymphocytes Absolute Auto 2.3 1.2 - 4.9 X10*3/uL [facility] Monocytes Absolute Auto 1.0 0.1 - 1.2 X10*3/uL [facility] Eosinophils Absolute Auto 0.1 0.0 - 0.4 X10*3/uL [facility] Basophils Absolute Auto 0.0 0.0 - 0.2 X10*3/uL [facility] NRBC Abs Auto 0.000 0.0 - 0.012 X10*3/uL [facility] Blood Venous blood specimen / Unknown 02/01/2025 2:59 PM EDT 02/01/2025 4:03 PM EDT us Edwige Headley MD LAB BLOOD ORDERABLES Final Re sult Performing Organization Address [facility]/ZIP Co de Phone Number [facility] [address] [place] [phone] [phone] * HIV-1/2 Antigen and Antibodies, Fourth Generation, with Reflexes (02/01/2025 2:59 PM EDT) Pathologist [facility] HIV AB/AG Nonreactive Nonreactive [facility] Comment:HIV-1 p24 Ag and/or HIV-1/HIV-2 Ab not detected.A test result that is nonreactive does not exclude thepossibility of exposure to or infection with HIV-1 and/orHIV-2. Nonreactive results in this assay for individualswith prior exposure to HIV-1 and/or HIV-2 may be due toantigen and antibody levels that are below the limit ofdetection of this assay.The [employer] HIV Ag/Ab Combo assay result andsupplemental assay results should be interpreted inconjunction with the patient's clinical presentation,history and other laboratory results. If the results areinconsistent with clinical evidence, additional testing issuggested to confirm the result. Blood Venous blood specimen / Unknown 02/01/2025 2:59 PM EDT 02/01/2025 4:03 PM EDT us Edwige Headley MD LAB BLOOD ORDERABLES Final Re sult Performing Organization Address [facility]/ZIP Co de Phone Number [facility] [address] [place] [phone] [phone] * Sed Rate by Modified Reanna (02/01/2025 2:59 PM EDT) Erythrocyte Sedimentation Rate 11 0 - 20 MM/HR [facility] Comment:Patients with polycy themia and many hemoglobin abnormalitiesmay have depressed sed rates whereas patients with anemiamay have elevated sed rates. Blood Venous blood specimen / Unknown 02/01/2025 2:59 PM EDT 02/01/2025 4:14 PM EDT Edwige Headley MD LAB BLOOD ORDERABLES Final Re sult Performing Organization Address [facility]/ZIP Co de Phone Number [facility] [address] [place] [phone] * C-reactive Protein (02/01/2025 2:59 PM EDT) C Reactive Protein <0.04 < or = 0.50 mg/dL [facility] Blood Venous blood specimen / Unknown 02/01/2025 2:59 PM EDT 02/01/2025 4:03 PM EDT Edwige Headley MD LAB BLOOD ORDERABLES Final Re sult Performing Organization Address [facility] Co de Phone Number [facility] [address] [place] [phone] * Lactate Dehydrogenase (LD) (02/01/2025 2:59 PM EDT) Lactate Dehydrogenase 188 122 - 220 U/L [facility] Blood Venous blood specimen / Unknown 02/01/2025 2:59 PM EDT 02/01/2025 4:03 PM EDT Edwige Headley MD LAB BLOOD ORDERABLES Final Re sult Performing Organization Address [facility] Co de Phone Number [facility] [address] [place] [phone] * Ferritin (02/01/2025 2:59 PM EDT) Ferritin 13 10 - 250 ng/mL [facility] Blood Venous blood specimen / Unknown 02/01/2025 2:59 PM EDT 02/01/2025 4:03 PM EDT us Viviana Lou MD LAB BLOOD ORDERABLES Final Result Performing Organization Address [facility]/ZIP Co de Phone Number [facility] [address] [place] [phone] * Lipid Panel, Standard (02/01/2025 2:59 PM EDT) Triglycerides 59 <150 mg/dL [facility] Comment:Desirable Triglyceri de: less than 150 mg/dLBorderline High Triglyceride 150-199 mg/dLHigh Triglyceride: 200-499 mg/dLVery High Triglyceride: greater than or equal to 5OO mg/dL Cholesterol 134 <200 mg/dL [facility] Comment:Desirable Cholestero l: less than 200 mg/dLBorderline High Cholesterol: 200-239 mg/dLHigh Cholesterol: greater than 239 mg/dL LDL Cholesterol Calculated 43 <100 mg/dL [facility] Comment:Desirable LDL: less than 100 mg/dLNear Optimal/Above Optimal LDL: 110- 129 mg/dLBorderline High LDL: 130-159 mg/dLHigh LDL: 160-189 mg/dLVery High LDL: greater than or equal to 190 mg/dL HDL Cholesterol 80 >40 mg/dL [facility] Comment:Desirable HDL: great er than 40 mg/dL Note: This HDL assay may give artificially low results in patients with liver disease. Blood Venous blood specimen / Unknown 02/01/2025 2:59 PM EDT 02/01/2025 4:03 PM EDT us Edwige Headley MD LAB BLOOD ORDERABLES Final Re sult Performing Organization Address City/[facility]/ZIP Co de Phone Number [facility] [address] [place] [phone] * (ABNORMAL) Comprehensive Metabolic Panel (02/01/2025 2:59 PM EDT) Pathologist [facility] Sodium 143 135 - 145 mmol/L [facility] Potassium 4.9 3.3 - 5.1 mmol/L [facility] Chloride 103 96 - 108 mmol/L [facility] Carbon Dioxide 33(H) 22 - 29 mmol/L [facility] Anion Gap 12 12 - 20 [facility] Urea Nitrogen (BUN) 17(H) 9 - 16 mg/dL [facility] Creatinine, Serum 0.76 0.5 - 1.4 mg/dL [facility] Estimated Glomerular Filt Rate >60 [facility] Comment:Chronic Kidney Disea se: Estimated GFR < 60 mL/min/1.48h7Ziwxen Kidney Disease: Estimated GFR < 15 mL/min/1.73m2 Glucose 123(H) 60 - 115 mg/dL [facility] Calcium 10.0 8.4 - 10.2 mg/dL [facility] Bilirubin, Total 0.7 0.0 - 1.0 mg/dL [facility] Aspartate Amino Transferase 29 5 - 31 U/L [facility] Alanine Aminotransferase 24 0 - 31 U/L [facility] Total Protein 7.7 6.5 - 8.0 g/dL [facility] Albumin Level 4.8 3.5 - 5.0 g/dL [facility] Alkaline Phosphatase 82 39 - 117 U/L [facility] Blood Venous blood specimen / Unknown 02/01/2025 2:59 PM EDT 02/01/2025 4:03 PM EDT us Edwige Headley MD LAB BLOOD ORDERABLES Final Re sult [facility] [address] [place] [address] [phone] * (ABNORMAL) POCT HGB A1C (09/27/2024 3:04 PM EDT) Pathologist [facility] Hemoglobin A1C 6.2(A) 4.0 - 6.0 % QC Media Lot # [id number] Lot# Expiration Date Blood 09/27/2024 3:04 PM EDT Edwige Headley MD POINT OF CARE TEST ENTER/EDIT ORDERABLES Final Result * Albumin, Random Urine W/Creatinine (07/18/2024 9:57 AM EST) Creatinine, Urine 47.58 mg/dL [facility] Microalbumin Urine 13.0 mg/L [facility] Microalbum Creatinine Ratio Ur 27.3 <30 ug/mg cr [facility] Comment:Albumin/Creatinine R atio Reference Ranges: Normal: < 30 ug/mg creatinine Microalbuminuria: 30 - 300 ug/mg creatinineClinical Albuminuria: > 300 ug/mg creatinine Urine (Urine, Random) 07/18/2024 9:57 AM EST 07/18/2024 2:15 PM EST Radha Renee MD LAB URINE ORDERABLES Final Result Performing Organization Address [facility] Co de Phone Number [facility] [address] [place] [phone] * Hepatitis C Antibody with Reflex to HCV, RNA, Quantitative, Real-Time PCR (07/07/2024 9:23 AM EST) Pathologist [facility] Hepatitis C Antibody Nonreactive Nonreactive [facility] Comment:Antibodies to HCV no t detected; does not exclude early acuteHCV infection. Blood Venous blood specimen / Unknown 07/07/2024 9:23 AM EST 07/07/2024 1:55 PM EST Radha Renee MD LAB BLOOD ORDERABLES Final Result Performing Organization Address City/[facility] Co de Phone Number [facility] [address] [place] [phone] from Last 3 Months or Most Recently Relevant to Health Maintenance [facility] Care Teams Real Estate Internship Relationship Specialty Start Date End Date Edwige Headley MD [address] [place] [address] PCP - General Family Medicine 08/21/22
--- OUTSIDE RECORDS SUMMARY | 2025-04-05 01:35 | XMS_ITS | Encounter Summary ---
Author Organization [employer] Address [address] [facility] 7 [place] [address] Care Team Providers Care Paraeducator Name Role Phone Edwige Headley MD Primary Care Provider Reason for Visit * Reason Comments Med Refill Encounter Details Date Type Department Care Team ([facility] st Contact Info) Description 10/23/2024 Refill [facility] [address] [place], [place] [phone] Radha Renee MD [address] [place] [address] Social History Tobacco Use Types Packs/Day Years [...] [facility] [address] [place] [address] Maria Guadalupe Rodríguez, AC [address] [place] [address] 06/07/2025 1:30 PM EST Office Visit [facility] [address] [place] [address] Edwige Headley MD [address] [place] [address] documented as of this encounter Goals Goal [...] documented as of this encounter Care Teams Paraeducator Relationship Specialty Start Date End Date Edwige Headley MD [address] [place] [phone] PCP - General Family Medicine 08/21/22 documented as of this encounter
--- OUTSIDE RECORDS SUMMARY | 2025-04-05 01:35 | XMS_ITS | Encounter Summary ---
Author Organization [employer] Address [address] 7t [place] [address] Care Team Providers Care Fast Food Crew Member Name Role Phone Edwige Headley MD Primary Care Provider [phone] Reason for Visit * Reason Comments Med Refill Encounter Details Date Type Department Care Team ([facility] st Contact Info) Description 08/13/2023 Refill [facility] CHC MED & PEDS [address] [place], [place] [phone] Edwige Headley MD 505 [place] [address] Social History Tobacco Use Types Packs/Day Years [...] 04/26/2025 11:00 AM EST Clinical Support [facility] MED & PEDS [address] [place] [address] Maria Guadalupe Rodríguez, AC 505 [place] [address] 06/07/2025 1:30 PM EST Office Visit [facility] MED & PEDS 505 [place] [address] Edwige Headley MD 505 [place] [address] documented as of this encounter Goals Goal [...] documented as of this encounter Care Teams Fast Food Crew Member Relationship Specialty Start Date End Date Edwige Headley MD 230 [place] [address] PCP - General Family Medicine 08/21/22 documented as of this encounter
--- OUTSIDE RECORDS SUMMARY | 2025-04-05 01:35 | XMS_ITS | Encounter Summary ---
Author Organization [employer] Address [address] 7t [place] [address] Care Team Providers Care Attending Pathologist Name Role Phone Edwige Headley MD Primary Care Provider [phone] Encounter Details Date Type Department Care Team ([facility] st Contact Info) Description 10/22/2022 Telephone [facility] CHC MED & PEDS 505 [place], [place] [phone] Edwige Headley MD 505 [place] [address] Social History Tobacco Use Types Packs/Day Years [...] a call in regards to message above. (Peruvian speaker) * Telephone Encounter - Inez Martinez - 10/22/2022 3:31 PM EDT TC from pt requesting help to schedule her gastro appt . Please call to clarify . documented in this encounter Plan of Treatment Upcoming Encounters Date Type Department Care Team (Late st Contact Info) Description 04/26/2025 11:00 AM EST Clinical Support [facility] MED & PEDS 505 [place] [address] Maria Guadalupe Rodríguez, RN 505 [place], [place] [phone] 06/07/2025 1:30 PM EST Office [facility] MED & PEDS 505 [place] [address] Edwige Headley MD 505 [place] [address] documented as of this encounter Goals Goal [...] documented as of this encounter Care Teams Attending Pathologist Relationship Specialty Start Date End Date Edwige Headley MD [address] [place] [address] PCP - General Family Medicine 08/21/22 documented as of this encounter
--- OUTSIDE RECORDS SUMMARY | 2025-04-05 01:35 | XMS_ITS | Encounter Summary ---
Author Organization [employer] [facility] Address [address] [facility] 7t [place] [address] Care Team Providers Care Cisco Certified Network Professional Name Role Phone Edwige Headley MD Primary Care Provider [phone] Reason for Visit * Reason Comments Med Refill Encounter Details Date Type Department Care Team (Late Contact Info) Description 12/04/2022 Refill [facility] CHC MED & PEDS 505 [place] [address] Edwige Headley MD 505 [place] [address] Social History Tobacco Use Types Packs/Day Years [...] Description 04/26/2025 11:00 AM EST Clinical Support [facility] CHC MED & PEDS 505 [place] [address] Maria Guadalupe Rodríguez, AC 505 [place] [address] 06/07/2025 1:30 PM EST Office Visit [facility] CHC MED & PEDS 505 [place] [address] Edwige Headley MD 505 [place] [address] documented as of this encounter Goals Goal [...] documented as of this encounter Care Teams Cisco Certified Network Professional Relationship Specialty Start Date End Date Edwige Headley MD [address] [place] [address] PCP - General Family Medicine 08/21/22 documented as of this encounter
--- OUTSIDE RECORDS SUMMARY | 2025-04-05 01:35 | XMS_ITS | Encounter Summary ---
Author Organization [employer] Address [address] 7t [place] [address] Care Team Providers Care Personal Computer Network Analyst Name Role Phone Edwige Headley MD Primary Care Provider [phone] Reason for Visit * Reason Onset Date Comments Appointment Request 09/05/2024 Encounter Details Date Type Department Care Team ([facility] st Contact Info) Description 09/05/2024 Telephone [facility] MEDICINE 230 [place] [address] Edwige Headley MD 505 [place] [address] Appointment Request Social History Tobacco Use Types [...] [facility] 505 [place] [address] Maria Guadalupe Rodríguez, AC 505 [place] [address] 06/07/2025 1:30 PM EST Office Visit [facility] MED & PEDS [address] [place] [address] Edwige Headley MD 505 [place] [address] documented as of this encounter Goals Goal [...] documented as of this encounter Care Teams Personal Computer Network Analyst Relationship Specialty Start Date End Date Edwige Headley MD 230 [place] [address] PCP - General Family Medicine 08/21/22 documented as of this encounter
--- OUTSIDE RECORDS SUMMARY | 2025-04-05 01:35 | XMS_ITS | Encounter Summary ---
Author Organization [employer] Address [address] [facility] 7t [place] [address] Care Team Providers Care Oyster Bed Worker Name Role Phone Edwige Headley MD Primary Care Provider [phone] Encounter Details Date Type Department Care Team (Late st Contact Info) Description 08/03/2024 Orders Only [facility] MEDICINE 230 [place] [address] Radha Renee MD 505 [place] [address] Alzheimer's disease, unspecified (CODE) ([facility] Social History Tobacco Use Types Packs/Day Years [...] 04/26/2025 11:00 AM EST Clinical Support [facility] MED & PEDS 505 [place] [address] Maria Guadalupe Rodríguez, AC 505 [place] [address] 06/07/2025 1:30 PM EST Office Visit [facility] MED & PEDS 505 [place] [address] Edwige Headley MD 505 [place] [address] documented as of this encounter Goals Goal [...] Assessment Noted Time PHQ-9 Depression Total Score: 024 12:52 PM EDT documented as of this encounter Care Teams Oyster Bed Worker Relationship Specialty Start Date End Date Edwige Headley MD 230 [place] [address] PCP - General Family Medicine 08/21/22 documented as of this encounter
--- OUTSIDE RECORDS SUMMARY | 2025-04-05 01:35 | XMS_ITS | Encounter Summary ---
Author Organization [employer] Address [address] 7t [place] [address] Care Team Providers Care Support Services Specialist Name Role Phone Edwige Headley MD Primary Care Provider [phone] Reason for Visit * Reason Onset Date Comments Appointment Request 08/17/2024 Encounter Details Date Type Department Care Team ([facility] st Contact Info) Description 08/17/[address] [facility] MEDICINE 230 [place] [address] Edwige Headley MD 505 [place] [address] Appointment Request Social History Tobacco Use Types [...] [facility] MED & PEDS 505 [place] [address] Maria Guadalupe Rodríguez RN 505 [place] [address] 06/07/2025 1:30 PM EST Office Visit [facility] MED & PEDS 505 [place] [address] Edwige Headley MD 505 [place] [address] documented as of this encounter Goals Goal [...] documented as of this encounter Care Teams Support Services Specialist Relationship Specialty Start Date End Date dEwige Headley MD 230 [place] [address] PCP - General Family Medicine 08/21/22 documented as of this encounter
--- OUTSIDE RECORDS SUMMARY | 2025-04-05 01:35 | XMS_ITS | Encounter Summary ---
Author Organization [employer] Address [address] 7t [place] [address] Care Team Providers Care Facilities Engineer Name Role Phone Edwige Headley MD Primary Care Provider [phone] Reason for Visit * Reason Onset Date Comments PT-1 03/28/2024 Encounter Details Date Type Department Care Team ([facility] st Contact Info) Description 03/28/[address] [facility] MEDICINE 230 [place] [address] Edwige Headley MD 505 [place] [address] PT-1 Social History Tobacco Use Types Packs/Day [...] Y/N: Yes Provider name or facility name: [facility] Address: [address] [place] [address] Escort needed: Y/N: Yes Do you have a wheelchair: Y/N: No If yes- Manual or electric: (Uses Walker) Visits: Once a month documented in this encounter Plan of Treatment Upcoming Encounters Date Type Department Care Team (Late st Contact Info) Description 04/26/2025 11:00 AM EST Clinical Support [facility] MED & PEDS 505 [place] [address] Maria Guadalupe Rodríguez RN 505 [place] [address] 06/07/2025 1:30 PM EST Office Visit [facility] MED & PEDS 505 [place] [address] Edwige Headley MD 505 [place] [address] documented as of this encounter Goals Goal [...] documented as of this encounter Care Teams Facilities Engineer Relationship Specialty Start Date End Date Edwige Headley MD 230 [place] [address] PCP - General Family Medicine 08/21/22 documented as of this encounter
--- OUTSIDE RECORDS SUMMARY | 2025-04-05 01:35 | XMS_ITS | Data Portability ---
Author Organization [facility], [facility] Address [address] [place] [phone] Care Team Providers Care Citrus Fruit Packer Name Role Phone HIM CCA OTHER Unavailable OTHER Assessment Encounter Date Assessment Date Assessment LastModified by Organization Details LastModified Time 10/13/2023 10/13/2023 I have reviewed and agree with the assessment and plan as documented by the viticulture teacher. I provided real-time medical direction for this [...] one 1 % topical cream [address] [facility], [address] [place] [address], [id number], 14:48:38 Patient TargetsNo targets recorded. Patient InstructionsNo [...] Updated DateTime 4 99 % 99 % 72390.6 16 g 16 /min 98.1 [degF] 86 /min 138/90 mm[Hg] Not Available [facility] 4 18:14:31 Social History None recorded. Functional Status None recorded. Mental Status None recorded. Family History Nothing Reported. Medical History No medical history recorded. Gynecological HistoryNo gynecological history recorded. Obstetrics History GPAL:G 0 P 0 0 0 0 Past Encounters Encounter ID Performer Location Encounter Start Date Encounter Closed Date Diagnosis/Indication Diagnosis SNOMED-CT Code Diagnosis ICD10 Code Diagnosis IMO Codes Diagnosis Note [id number] Rita Haile MD Main - [facility] [address] [place] [phone] 10/13/2023 18:14:24 10/14/2023 10:34:19 Contact dermatitis 62363583 L25.9 Health Concerns Section Related Observation LastModified by Organization Detai ls LastModified Time None Recorded Concern Status LastModified by Organization Details LastModified Time None Recorded Advance Directives Directive None Recorded Payers Insurance Date Sequence Insurance Name Policy Number Policy Sifuentes Covered Member ID Sifuentes Member ID Guarantor Name 10/13/[address] [facility] - DOS ON OR AFTER 2022 - MEDICARE ADVANTAGE [place] (MEDICARE REPLACEMENT/ADV ANTAGE - PPO) Ed Kumarpo [id number] Ed Kumarpo 10/13/[address] [facility] - DOS ON OR AFTER 2022 - DUAL ELIGIBLE - RETIREMENT OPTIONS AND ONE CARE (MEDICARE REPLACEMENT/ADV ANTAGE - HMO) Ed Kumarpo [id number] Ed Hoffmann Notes Date Note Type Note [...] .................... .................... .................... .................... .................... .................... . Controls Operator Molded Goods Note From Michael Nielson: Pt co rash/redness with itching burning to skin after using L O r al cream. Pt has discontinued use. Pt [...] .................... . Disposition: Dwayne Haile MD [address] [facility],[address], [place], [address], [employer] 10/13/2023 19:19:35 OBGyn Episode No OBEpisode recorded.
--- OUTSIDE RECORDS SUMMARY | 2025-04-05 01:35 | XMS_ITS | Encounter Summary ---
Author Organization [employer] Address [address] [facility] 7 [place] [address] Care Team Providers Care Swimming Pool Servicer Name Role Phone Edwige Headley MD Primary Care Provider Reason for Visit * Reason Comments Med Refill Encounter Details Date Type Department Care Team ([facility] st Contact Info) Description 01/15/2025 Refill [facility] CHC MED & PEDS [address] [place] [address] Radha Renee MD 505 [place] [address] Social History Tobacco Use Types Packs/Day Years [...] Description 04/26/2025 11:00 AM EST Clinical Support [facility] MED & PEDS [address] [place] [address] Maria Guadalupe Rodríguez, AC 505 [place] [address] 06/07/2025 1:30 PM EST Office Visit [facility] MED & PEDS 505 [place] [address] Edwige Headley MD 505 [place] [address] documented as of this encounter Goals Goal [...] documented as of this encounter Care Teams Swimming Pool Servicer Relationship Specialty Start Date End Date Edwige Headley MD [address] [place] [address] PCP - General Family Medicine 08/21/22 documented as of this encounter
--- OUTSIDE RECORDS SUMMARY | 2025-04-05 01:35 | XMS_ITS | Encounter Summary ---
Author Organization [employer] Address [address] 7t [place] [address] Care Team Providers Care Chaser Apprentice Name Role Phone Edwige Headley MD Primary Care Provider [phone] Reason for Visit * Reason Onset Date Comments Med Refill 03/20/2025 Encounter Details Date Type Department Care Team ([facility] st Contact Info) Description 03/20/2025 Telephone [facility] MEDICINE 230 [place] [address] Edwige Headley MD 505 [place] [address] Med Refill Social History Tobacco Use Types [...] MG tablet To be sent to: - [facility] - [place], [place] - [address] [facility] documented in this encounter Plan of Treatment Upcoming Encounters Date Type Department Care Team (Late st Contact Info) Description 04/26/2025 11:00 AM EST Clinical Support [facility] MED & PEDS 505 [place] [address] Maria Guadalupe Rodríguez RN 505 [place] [address] 06/07/2025 1:30 PM EST Office Visit [facility] MED & PEDS 505 [place] [address] Edwige Headley MD 505 [place] [address] documented as of this encounter Goals Goal [...] documented as of this encounter Care Teams Chaser Apprentice Relationship Specialty Start Date End Date Edwige Headley MD 230 [place] [address] PCP - General Family Medicine 08/21/22 documented as of this encounter
--- OUTSIDE RECORDS SUMMARY | 2025-04-05 01:35 | XMS_ITS | Encounter Summary ---
Author Organization [employer] Address [address] [facility] 7 [place] [address] Care Team Providers Care Manager Activities Name Role Phone Edwige Headley MD Primary Care Provider [phone] Reason for Visit * Reason Comments Med Refill Encounter Details Date Type Department Care Team ([facility] st Contact Info) Description 04/04/2025 Refill [facility] CHC MED & PEDS [address] [place], [place] [phone] Teressa Maher MD 505 [place] [address] Social History Tobacco Use Types Packs/Day Years [...] [facility] MED & PEDS 505 [place] [address] Maria Guadalupe Rordíguez, AC 505 [place] [address] 06/07/2025 1:30 PM EST Office Visit [facility] MED & PEDS 505 [place] [address] Edwige Headley MD 505 [place] [address] documented as of this encounter Goals Goal [...] as of this encounter Care Teams Manager Activities Relationship Specialty Start Date End Date Edwige Headley MD [address] [place] [address] PCP - General Family Medicine 08/21/22 documented as of this encounter
== END 2025-04-04 14:10 | disposition home or self-care (01) ==
PROVIDERS: PCP Family Medicine
DX: M65.331 Trigger finger, right middle finger (principal)
CPT/HCPCS: 99214

== ENCOUNTER → 2025-04-04 13:34 | Outpatient (BNVA) | payer OTHER, SELFPAY | PROVIDERS: PCP Family Medicine | DX: M65.331 Trigger finger, right middle finger (principal) | CPT/HCPCS: 99212 ==

== ENCOUNTER 2025-04-06 09:18 | Outpatient (AMB) | payer OTHER, SELFPAY ==
--- OUTSIDE RECORDS SUMMARY | 2025-04-06 09:38 | XMS_ITS | Encounter Summary ---
Author Organization [employer] Address [address] [facility] 7t [place] [address] Care Team Providers Care Comfort Filler Name Role Phone Edwige Headley MD Primary Care Provider [phone] Encounter Details Date Type Department Care Team ([facility] Contact Info) Description 11/03/2022 Abstract [place] [employer] 230 [place], [place] [phone] Edwige Headley MD 505 [place], [place] [phone] Social History Tobacco Use Types Packs/Day Years [...] Upcoming Encounters Date Type Department Care Team ([facility] Contact Info) Description 04/26/2025 11:00 AM EST Clinical Support [facility] CHC MED & PEDS 505 [place], [place] [phone] Maria Guadalupe Rodríguez RN 505 [place] [address] 06/07/2025 1:30 PM EST Office Visit [facility] CHC MED & PEDS 505 [place] [address] Edwige Headley MD 505 [place] [address] documented as of this encounter Goals Goal [...] documented as of this encounter Care Teams Comfort Filler Relationship Specialty Start Date End Date Edwige Headely MD [address] [place] [address] PCP - General Family Medicine 08/21/22 documented as of this encounter
--- OUTSIDE RECORDS SUMMARY | 2025-04-06 09:38 | XMS_ITS | Encounter Summary ---
Author Organization [employer] Address [address] 7t [place] [address] Care Team Providers Care Dye Beck Reel Operator Name Role Phone Edwige Headley MD Primary Care Provider [phone] Encounter Details Date Type Department Care Team ([facility] st Contact Info) Description 10/22/2022 Telephone [facility] CHC MED & PEDS 505 [place], [place] [phone] Edwige Headley MD 505 [place] [address] Social History Tobacco Use Types Packs/Day Years [...] in regards to message above. (Citizen Of [place] speaker) * Telephone Encounter - Inez Martinez - 10/22/2022 3:31 PM EDT TC from pt requesting help to schedule her gastro appt . Please call to clarify . documented in this encounter Plan of Treatment Upcoming Encounters Date Type Department Care Team (Late st Contact Info) Description 04/26/2025 11:00 AM EST Clinical Support [facility] MED & PEDS 505 [place] [address] Maria Guadalupe Rodríguez, RN 505 [place], [place] [phone] 06/07/2025 1:30 PM EST Office Visit [facility] MED & PEDS 505 [place] [address] Edwige Headley MD 505 [place] [address] documented as of this encounter Goals Goal [...] as of this encounter Care Teams Dye Beck Reel Operator Relationship Specialty Start Date End Date Edwige Headley MD [address] [place] [address] PCP - General Family Medicine 08/21/22 documented as of this encounter
--- OUTSIDE RECORDS SUMMARY | 2025-04-06 09:38 | XMS_ITS | Encounter Summary ---
Author Organization [employer] Address [address] [facility] [facility] [address]t [place] [address] Care Team Providers Care Sales Advisory Manager Name Role Phone Edwige Headley MD Primary Care Provider [phone] Reason for Visit * Reason Onset Date Comments Appointment Request 04/06/2024 Encounter Details Date Type Department Care Team ([facility] st Contact Info) Description 04/06/2024 Telephone [facility] 230 [place] [address] Edwige Headley MD 505 [place] [address] Appointment Request Social History Tobacco Use Types [...] somewhere else. Contac pt to r/s at [phone] documented in this encounter Plan of Treatment Upcoming Encounters Date Type Department Care Team (Late st Contact Info) Description 04/26/2025 11:00 AM EST Clinical Support [facility] MED & PEDS 505 [place] [address] Maria Guadalupe Rodríguez RN 505 [place] [address] 06/07/2025 1:30 PM EST Office Visit [facility] MED & PEDS 505 [place] [address] Edwige Headley MD 505 [place] [address] documented as of this encounter Goals Goal [...] documented as of this encounter Care Teams Sales Advisory Manager Relationship Specialty Start Date End Date Edwige Headley MD 230 [place] [address] PCP - General Family Medicine 08/21/22 documented as of this encounter
--- OUTSIDE RECORDS SUMMARY | 2025-04-06 09:38 | XMS_ITS | Encounter Summary ---
Author Organization [employer] Address [address]t [place] [address] Care Team Providers Care Double Backer Name Role Phone Edwige Headley MD Primary Care Provider [phone] Reason for Visit * Reason Onset Date Comments Med Refill 01/18/2025 Encounter Details Date Type Department Care Team (Late st Contact Info) Description 01/18/2025 Telephone [facility] MEDICINE 230 [place] [address] Edwige Headley MD 505 [place] [address] Med Refill Social History Tobacco Use Types [...] tablet To be sent to: - [facility] - [place], [place] - [address] [facility] documented in this encounter Plan of Treatment Upcoming Encounters Date Type Department Care Team ([facility] st Contact Info) Description 04/26/2025 11:00 AM EST Clinical Support [facility] MED & PEDS 505 [place] [address] Maria Guadalupe Rodríguez RN 505 [place] [address] 06/07/2025 1:30 PM EST Office Visit [facility] MED & PEDS 505 [place] [address] Edwige Headley MD 505 [place] [address] documented as of this encounter Goals Goal [...] documented as of this encounter Care Teams Double Backer Relationship Specialty Start Date End Date Edwige Headley MD 230 [place] [address] PCP - General Family Medicine 08/21/22 documented as of this encounter
--- OUTSIDE RECORDS SUMMARY | 2025-04-06 09:38 | XMS_ITS | Encounter Summary ---
Author Organization [employer] Address [address] [facility] 7 [place] [address] Care Team Providers Care Air Export Coordinator Name Role Phone Edwige Headley MD Primary Care Provider [phone] Reason for Visit * Reason Comments Med Refill Encounter Details Date Type Department Care Team ([facility] st Contact Info) Description 10/23/2024 Refill [facility] CHC MED & PEDS 505 [place], [place] [phone] Radha Renee MD 505 [place] [address] Social History Tobacco Use Types Packs/Day Years [...] 11:00 AM EST Clinical Support [facility] MED & PEDS 505 [place] [address] Maria Guadalupe Rodríguez, AC 505 [place] [address] 06/07/2025 1:30 PM EST Office Visit [facility] MED & PEDS 505 [place] [address] Edwige Headley MD 505 [place] [address] documented as of this encounter Goals Goal [...] as of this encounter Care Teams Air Export Coordinator Relationship Specialty Start Date End Date Edwige Headley MD [address] [place] [address] PCP - General Family Medicine 08/21/22 documented as of this encounter
--- OUTSIDE RECORDS SUMMARY | 2025-04-06 09:38 | XMS_ITS | Encounter Summary ---
Author Organization [employer] Address [address] [place] [address] Care Team Providers Care Carton Forming Machine Helper Name Role Phone Edwige Headley MD Primary Care Provider Reason for Visit * Reason Onset Date Comments Appointment Request 01/24/2025 Encounter Details Date Type Department Care Team ([facility] st Contact Info) Description 01/24/2025 Telephone [facility] [address] [place] [address] Edwige Headley MD [address] [place] [address] Appointment Request Social History Tobacco Use Types [...] back regarding prior message. Contact pt at [phone] * Telephone Encounter - Tiburcio Thibodeaux - 01/24/2025 9:21 AM EDT Tc from pt requesting to reschedule LIFE ENRICHMENT SPECIALIST visit from 02/01. Please contact pt at [phone]. (Uzbek Speaker) documented in this encounter Plan of Treatment Upcoming Encounters Date Type Department Care Team ([facility] st Contact Info) Description 04/26/2025 11:00 AM EST Clinical Support [facility] [address] [place] [address] Maria Guadalupe Rodríguez RN [address] [place] [address] 06/07/2025 1:30 PM EST Office Visit [facility] [address] [place] [address] Edwige Headley MD [address] [place] [address] documented as of this encounter Goals Goal [...] documented as of this encounter Care Teams Carton Forming Machine Helper Relationship Specialty Start Date End Date Edwige Headley MD [address] [place] [address] PCP - General Family Medicine 08/21/22 documented as of this encounter
--- OUTSIDE RECORDS SUMMARY | 2025-04-06 09:38 | XMS_ITS | Clinical Summary ---
Author Organization [employer] Address [address] [facility] 7t [place] [address] Care Team Providers Care Dinkey Driver Name Role Phone Edwige Headley MD Primary Care Provider [phone] Allergies Active Allergy Reactions Criticality Noted Date [...] each 023 Active Lancets (OneTouch Delica Plus [id number]) misc 1 Units in the morning. Please [...] 5 MG tabletIndicatio ns:Alzheimer's disease, unspecified (CODE) ([facility]) TAKE 1 TABLET BY MOUTH TWICE DAILY IN THE MORNING AND IN THE EVENING 60 tablet 2 025 Active losartan (Cozaar) 25 MG tablet TAKE 1 TABLET BY MOUTH EVERY MORNING 90 tablet 1 025 Active TRUEplus Lancets 33G miscIndications :Type 2 diabetes mellitus with hyperglycemia, without long-term current use of insulin ([facility]) USE THREE TIMES DAILY TO TEST BLOOD [...] Trelegy , which was prescribed by a burrer marker axle. Oxygen saturation appears stable at rest, but there is a need to assess for desaturation with ambulation. Plan: - Continue Trelegy 262.5/25 as prescribed by burrer marker axle - Assess oxygen saturation with ambulation - Consider low-dose chronic steroids (to be discussed with burrer marker axle) - Follow up with burrer marker axle on the of the current month Bilateral [...] swallow test came back normal. Referred to media senior recruiter Assessment & Plan (07/20/2023 9:51 PM EST): [...] be prescribed steroids. Recommended patient to call Transmission Mechanic to schedule an appointment to get further assistance. Alzheimer's dementia ([facility]) 08/21/2022 Assessment & Plan (03/16/2024 2:25 PM [...] 10/18/2023 3:30 PM Edwige Headley MD [facility] Assessment & Plan (03/19/2023 3:58 PM EDT): [...] Coping skills for Anxiety c. Contact this continuity writer for support as needed Encounters Date Type Department Care Team Description 04/04/2025 Refill [facility] [address] [place] [address] Teressa Maher MD 04/01/2025 Refill [facility] [address] [place] [address] Edwige Headley MD Fibromyalgia 03/21/2025 Telephone [facility] [address] [place] [address] Edwige Headley MD Med Refill 03/21/2025 Results Follow-Up [facility] [address] [place] [address] Radha Renee MD XR Lumbar Spine Complete 4+ Views 03/20/2025 Refill [facility] [address] [place] [address] Edwige Headley MD 03/20/2025 Refill [facility] [address] [place] [address] Maria Guadalupe Rodríguez RN Fibromyalgia 03/20/2025 Telephone [facility] [address] [place] [address] Edwige Headley MD Med Refill 03/13/2025 Patient Outreach [facility] [address] [place] [address] Edwige Headley MD Care Coordination (W outreach for [facility] [id number] ral completed /) 03/13/2025 Telephone [facility] [address] [place] [phone] Edwige Headley MD PT1 02/24/2025 Refill [address] [place] [address] Teressa Maher MD 02/21/2025 11:00 AM EDT Clinical Support [facility] [address] [place] [address] Maria Guadalupe Rodríguez RN Long-term current use of opiate analgesic (Primary Dx) 02/21/2025 Travel 02/21/2025 Telephone [facility] [address] [place] [address] Maria Guadalupe Rodríguez RN 02/16/2025 Refill [facility] [address] [place] [address] Edwige Headley MD Fibromyalgia 02/07/2025 Refill [facility] [address] [place] [address] Teressa Maher MD 02/06/2025 Refill [facility] [address] [place] [address] Teressa Maher MD Type 2 diabetes mellitus with hyperglycemia, without long-term current use of insulin ([facility]) 02/03/2025 Refill [facility] [address] [place] [address] Edwige Headley MD Fibromyalgia; Alzheimer's disease, unspecified (CODE) ([facility]) 02/02/2025 Results Follow-Up [facility] [address] [place] [address] Viviana Lou MD Ferritin, Vitamin B12/Folate, Serum Panel 02/01/2025 2:20 PM EDT Office Visit [facility] [address] [place] [address] Viviana Lou MD Pain in both lower extremities (Primary Dx) 02/01/2025 Travel 01/30/2025 Telephone [facility] [address] [place] [address] Maria Guadalupe Rodríguez RN 01/24/2025 Telephone [facility] [address] [place] [address] Edwige Headley MD Appointment Request 01/18/2025 Refill [facility] [address] [place] [address] Edwige Headley MD Fibromyalgia 01/18/2025 Telephone [facility] [address] [place] [address] Edwige Headley MD Med Refill 01/17/2025 Refill [facility] [address] [place] [address] Radha Renee MD 01/16/2025 Refill [facility] [address] [place] [address] Edwige Headley MD 01/15/2025 Refill [facility] [address] [place] [address] Radha Rneee MD 01/12/2025 3:15 PM EDT Office Visit [facility] [address] [place] [address] Edwige Headley MD Iliotibial band syndrome, left (Primary Dx); Atrophic vaginitis 01/12/2025 Travel 01/11/2025 Telephone [facility] [address] [place] [address] Edwige Headley MD Chart Prep 01/05/2025 Patient Outreach [facility] [address] [place] [address] Edwige Headley MD Pre-visit Planning ([facility] screening completed on 09/19/24 ) from Last [...] [facility] [address] [place] [address] Maria Guadalupe Rodríguez RN [address] [place] [address] 06/07/2025 1:30 PM EST Office Visit [facility] [address] [place] [address] Edwige Headley MD [address] [place] [address] Health Maintenance Due Date Last Done Comments [...] hyperglycemia, without long-term current use of insulin ([facility]) HIV 1/2 ANTIGEN/ANTIBODY, FOURTH GENERATION W/RFL Routine [...] PM EST Narrative 03/20/2025 1:23 PM EST [address] [address] XRay Report Signed Patient: Ed Holguin MR#: [id number] : 1945 Acct:[id number] Age/Sex: 79 / F ADM Date: 03/20/25 Loc: HO.XRAY Attending Dr: Radha Renee MD Ordering Physician: Radha Renee MD Date of Service: 03/20/25 Procedure(s): XR lumbar spine 4V min Accession Number(s): [id number] cc: Radha Renee MD Reason for Exam: [...] by: Lee Jacobson MD 03/20/2025 01:21 PM [facility] [place] [place] Dictated By: Lee Smith MD Signed By: <Electronically signed by Lee Geller MD in OV> 03/20/25 1321 DD/ 1302 TD/TT: 03/20/25 1313 Marine Surveyor: Procedure Note Donotuseinterpreter, Image - 03/20/[address] [address] XRay Report Signed Patient: Arthur Holguin#: [id number] : 1945cct:[id number] Age/Sex: 79 / FADM Date: 03/20/25 Loc: HO.XRAY Attending Dr: Radha Renee MD Ordering Physician: Radha Renee MD Date of Service: 03/20/25 Procedure(s): XR lumbar spine 4V min Accession Number(s): [id number] cc: Radha Renee MD Reason for Exam: [...] by: Lee Jacobson MD 03/20/2025 01:21 PM [facility] [place] [place] Dictated By: Lee Smith MD Signed By: <Electronically signed by Lee Geller MDin OV> 03/20/25 1321 DD/ 1302 TD/TT: 03/20/25 1313 Marine Surveyor: Radha Renee MD IMG XR PROCEDURES Final [...] AM EDT . Internal Pass Control Lot# [id number] Exp: 03-16-26 Edwige Headley MD POINT OF CARE TEST ENTER/EDIT ORDERABLES Final Result * TSH W/Reflex to FT4 (02/01/2025 3:30 PM EDT) TSH reflex Free T4 0.89 0.32 - 4.0 uIU/mL [facility] Blood Venous blood specimen / Unknown 02/01/2025 3:30 PM EDT 02/01/2025 4:03 PM EDT Edwige Headley MD LAB BLOOD ORDERABLES Final Re sult Performing Organization Address [facility] Co de Phone Number [facility] [address] [place] [phone] * Vitamin B12/Folate, Serum Panel (02/01/2025 2:59 PM EDT) Vitamin B12 719 200 - 900 pg/mL [facility] Comment:NORMAL 200-900 PG/ML INDETERMINATE 160-199 PG/ML DEFICIENT < 160 PG/ML Folate 7.9 > or = 4.0 ng/mL [facility] Comment:Reference Values:> o r [...] Final Result Performing Organization Address [facility]/ZIP Co de Phone Number [facility] [address] [place] [phone] * (ABNORMAL) CBC auto differential (02/01/2025 2:59 PM EDT) White Blood Count 8.1 4.8 - 10.8 X10*3/uL [facility] Red Blood Count 4.28 4.20 - 5.50 X10*6/uL [facility] Hemoglobin 12.7 12.0 - 16.0 g/dl [facility] Hematocrit 37.7 37.0 - 47.0 % [facility] Mean Corpuscular Volume 88.1 80.0 - 98.0 fL [facility] Mean Corpuscular Hemoglobin 29.7 27.0 - 33.0 pg [facility] Mean Corpuscular HGB Conc 33.7 31.0 - 35.0 g/dl [facility] Red Cell Distribution Width 15.1 11.0 - 16.0 % [facility] Platelet Count 232 160 - 400 X10*3/uL [facility] Mean Platelet Volume 11.2 9.4 - 12.3 fL [facility] Neutrophils Percent Auto 58.3 45 - 73 % [facility] Imm Gran Pct Auto 0.4 0.0 - 0.4 % [facility] Lymphocytes Percent Auto 28.0 20 - 40 % [facility] Monocytes Percent Auto 12.2(H) 2 - 11 % [facility] Eosinophils Percent Auto 0.6 0 - 4 % [facility] Basophils Percent Auto 0.5 0 - 2 % [facility] NRBC Pct Auto 0.0 0.0 - 0.2 /100WBC [facility] Neutrophils Absolute Auto 4.7 2.0 - 8.3 x10*3/uL [facility] Imm Gran Abs Auto 0.03 0.00 - 0.03 X10*3/uL [facility] Lymphocytes Absolute Auto 2.3 1.2 - 4.9 X10*3/uL [facility] Monocytes Absolute Auto 1.0 0.1 - 1.2 X10*3/uL [facility] Eosinophils Absolute Auto 0.1 0.0 - 0.4 X10*3/uL [facility] Basophils Absolute Auto 0.0 0.0 - 0.2 X10*3/uL [facility] NRBC Abs Auto 0.000 0.0 - 0.012 X10*3/uL [facility] Blood Venous blood specimen / Unknown 02/01/2025 2:59 PM EDT 02/01/2025 4:03 PM EDT us Edwige Headley MD LAB BLOOD ORDERABLES Final Re sult Performing Organization Address [facility]/ZIP Co de Phone Number [facility] [address] [place] [address] [phone] * HIV-1/2 Antigen and Antibodies, Fourth Generation, with Reflexes (02/01/2025 2:59 PM EDT) Pathologist [facility] HIV AB/AG Nonreactive Nonreactive [facility] Comment:HIV-1 p24 Ag and/or HIV-1/HIV-2 Ab not detected.A test result that is nonreactive does not exclude thepossibility of exposure to or infection with HIV-1 and/orHIV-2. Nonreactive results in this assay for individualswith prior exposure to HIV-1 and/or HIV-2 may be due toantigen and antibody levels that are below the limit ofdetection of this assay.The [employer] HIV Ag/Ab Combo assay result andsupplemental assay [...] Re sult Performing Organization Address [facility]/ZIP Co de Phone Number [facility] [address] [place] [address] [phone] * Sed Rate by Modified Reanna (02/01/2025 2:59 PM EDT) Erythrocyte Sedimentation Rate 11 0 - 20 MM/HR [facility] Comment:Patients with polycy themia and many hemoglobin abnormalitiesmay have depressed sed rates whereas patients with anemiamay have elevated sed rates. Blood Venous blood specimen / Unknown 02/01/2025 2:59 PM EDT 02/01/2025 4:14 PM EDT Edwige Headley MD LAB BLOOD ORDERABLES Final Re sult Performing Organization Address [facility]/ZIP Co de Phone Number [facility] [address] [place] [phone] * C-reactive Protein (02/01/2025 2:59 PM EDT) C Reactive Protein <0.04 < or = 0.50 mg/dL [facility] Blood Venous blood specimen / Unknown 02/01/2025 2:59 PM EDT 02/01/2025 4:03 PM EDT Edwige Headley MD LAB BLOOD ORDERABLES Final Re sult Performing Organization Address [facility] Co de Phone Number [facility] [address] [place] [phone] * Lactate Dehydrogenase (LD) (02/01/2025 2:59 PM EDT) Lactate Dehydrogenase 188 122 - 220 U/L [facility] Blood Venous blood specimen / Unknown 02/01/2025 2:59 PM EDT 02/01/2025 4:03 PM EDT Edwige Headley MD LAB BLOOD ORDERABLES Final Re sult Performing Organization Address [facility] Co de Phone Number [facility] [address] [place] [phone] * Ferritin (02/01/2025 2:59 PM EDT) Ferritin 13 10 - 250 ng/mL [facility] Blood Venous blood specimen / Unknown 02/01/2025 2:59 PM EDT 02/01/2025 4:03 PM EDT us Viviana Lou MD LAB BLOOD ORDERABLES Final Result Performing Organization Address [facility]/ZIP Co de Phone Number [facility] [address] [place] [phone] * Lipid Panel, Standard (02/01/2025 2:59 PM EDT) Triglycerides 59 <150 mg/dL [facility] Comment:Desirable Triglyceri de: less than 150 mg/dLBorderline High Triglyceride 150-199 mg/dLHigh Triglyceride: 200-499 mg/dLVery High Triglyceride: greater than or equal to 5OO mg/dL Cholesterol 134 <200 mg/dL [facility] Comment:Desirable Cholestero l: less than 200 mg/dLBorderline High Cholesterol: 200-239 mg/dLHigh Cholesterol: greater than 239 mg/dL LDL Cholesterol Calculated 43 <100 mg/dL [facility] Comment:Desirable LDL: less than 100 mg/dLNear Optimal/Above Optimal LDL: 110- 129 mg/dLBorderline High LDL: 130-159 mg/dLHigh LDL: 160-189 mg/dLVery High LDL: greater than or equal to 190 mg/dL HDL Cholesterol 80 >40 mg/dL [facility] Comment:Desirable HDL: great er than 40 mg/dL Note: This HDL assay may give artificially low results in patients with liver disease. Blood Venous blood specimen / Unknown 02/01/2025 2:59 PM EDT 02/01/2025 4:03 PM EDT us Edwige Headley MD LAB BLOOD ORDERABLES Final Re sult Performing Organization Address City/[facility]/ZIP Co de Phone Number [facility] [address] [place] [phone] [phone] * (ABNORMAL) Comprehensive Metabolic Panel (02/01/2025 2:59 PM EDT) Pathologist [facility] Sodium 143 135 - 145 mmol/L [facility] Potassium 4.9 3.3 - 5.1 mmol/L [facility] Chloride 103 96 - 108 mmol/L [facility] Carbon Dioxide 33(H) 22 - 29 mmol/L [facility] Anion Gap 12 12 - 20 [facility] Urea Nitrogen (BUN) 17(H) 9 - 16 mg/dL [facility] Creatinine, Serum 0.76 0.5 - 1.4 mg/dL [facility] Estimated Glomerular Filt Rate >60 [facility] Comment:Chronic Kidney Disea se: Estimated GFR < 60 mL/min/1.05h2Ulpdty Kidney Disease: Estimated GFR < 15 mL/min/1.73m2 Glucose 123(H) 60 - 115 mg/dL [facility] Calcium 10.0 8.4 - 10.2 mg/dL [facility] Bilirubin, Total 0.7 0.0 - 1.0 mg/dL [facility] Aspartate Amino Transferase 29 5 - 31 U/L [facility] Alanine Aminotransferase 24 0 - 31 U/L [facility] Total Protein 7.7 6.5 - 8.0 g/dL [facility] Albumin Level 4.8 3.5 - 5.0 g/dL [facility] Alkaline Phosphatase 82 39 - 117 U/L [facility] Blood Venous blood specimen / Unknown 02/01/2025 2:59 PM EDT 02/01/2025 4:03 PM EDT us Edwige Headley MD LAB BLOOD ORDERABLES Final Re sult [facility] [address] [place] [phone] [phone] * (ABNORMAL) POCT HGB A1C (09/27/2024 3:04 PM EDT) Pathologist [facility] Hemoglobin A1C 6.2(A) 4.0 - 6.0 % QC Media Lot # [id number] Lot# Expiration Date Blood 09/27/2024 3:04 PM EDT Edwige Headley MD POINT OF CARE TEST ENTER/EDIT ORDERABLES Final Result * Albumin, Random Urine W/Creatinine (07/18/2024 9:57 AM EST) Creatinine, Urine 47.58 mg/dL [facility] Microalbumin Urine 13.0 mg/L [facility] Microalbum Creatinine Ratio Ur 27.3 <30 ug/mg cr [facility] Comment:Albumin/Creatinine R atio Reference Ranges: Normal: < 30 ug/mg creatinine Microalbuminuria: 30 - 300 ug/mg creatinineClinical Albuminuria: > 300 ug/mg creatinine Urine (Urine, Random) 07/18/2024 9:57 AM EST 07/18/2024 2:15 PM EST Radha Renee MD LAB URINE ORDERABLES Final Result Performing Organization Address [facility] Co de Phone Number [facility] [address] [place] [phone] * Hepatitis C Antibody with Reflex to HCV, RNA, Quantitative, Real-Time PCR (07/07/2024 9:23 AM EST) Pathologist [facility] Hepatitis C Antibody Nonreactive Nonreactive [facility] Comment:Antibodies to HCV no t detected; does not exclude early acuteHCV infection. Blood Venous blood specimen / Unknown 07/07/2024 9:23 AM EST 07/07/2024 1:55 PM EST Radha Renee MD LAB BLOOD ORDERABLES Final Result Performing Organization Address City/[facility] Co de Phone Number [facility] [address] [place] [phone] from Last 3 Months or Most Recently Relevant to Health Maintenance Insurance [facility] Care Teams Dinkey Driver Relationship Specialty Start Date End Date Edwige Headley MD [address] [place] [address] PCP - General Family Medicine 08/21/22
--- OUTSIDE RECORDS SUMMARY | 2025-04-06 09:38 | XMS_ITS | Encounter Summary ---
Author Organization [facility] Address [address] [facility] 7t [place] [address] Care Team Providers Care Welder Operator Name Role Phone Edwige Headley MD Primary Care Provider [phone] Reason for Visit * Reason Comments Med Refill Encounter Details Date Type Department Care Team (Late Contact Info) Description 12/04/2022 Refill [facility] [address] [place] [address] Edwige Headley MD [address] [place] [address] Social History Tobacco Use Types Packs/Day Years [...] Description 04/26/2025 11:00 AM EST Clinical Support [facility] [address] [place] [address] Maria Guadalupe Rodríguez, AC [address] [place] [address] 06/07/2025 1:30 PM EST Office Visit [facility] [address] [place] [address] Edwige Headley MD [address] [place] [address] documented as of this encounter Goals Goal [...] as of this encounter Care Teams Welder Operator Relationship Specialty Start Date End Date Edwige Headley MD [address] [place] [phone] PCP - General Family Medicine 08/21/22 documented as of this encounter
--- OUTSIDE RECORDS SUMMARY | 2025-04-06 09:38 | XMS_ITS | Encounter Summary ---
Author Organization [employer] Address [address] [place] [address] Care Team Providers Care Education And Training Coordinator Name Role Phone Edwige Headley MD Primary Care Provider [phone] Reason for Visit * Reason Onset Date Comments Medical Necessity Form 10/20/2024 Encounter Details Date Type Department Care Team ([facility] st Contact Info) Description 10/20/2024 Telephone [facility] [address] [place] [address] Edwige Headley MD [address] [place] [address] Medical Necessity Form Social History Tobacco Use [...] - 10/20/2024 10:29 AM EDT TC from [facility] with [facility] requesting a medical necessity form regarding a stair lift. She stated that provider agreement is required for processing and requested the form be faxed to [phone]. documented in this encounter Plan of Treatment Upcoming Encounters Date Type Department Care Team (Late st Contact Info) Description 04/26/2025 11:00 AM EST Clinical Support [facility] [address] [place] [address] Maria Guadalupe Rodríguez, AC [address] [place] [address] 06/07/2025 1:30 PM EST Office Visit [facility] [address] [place] [address] Edwige Headley MD [address] [place] [address] documented as of this encounter Goals Goal [...] documented as of this encounter Care Teams Education And Training Coordinator Relationship Specialty Start Date End Date Edwige Headley MD [address] [place] [address] PCP - General Family Medicine 08/21/22 documented as of this encounter
--- OUTSIDE RECORDS SUMMARY | 2025-04-06 09:38 | XMS_ITS | Encounter Summary ---
Author Organization [employer] Address [address] [facility] 7 [place] [address] Care Team Providers Care Civil Project Engineer Name Role Phone Edwige Headley MD Primary Care Provider [phone] Reason for Visit * Reason Comments Med Refill Encounter Details Date Type Department Care Team ([facility] st Contact Info) Description 01/15/2025 Refill [facility] MED & PEDS 505 [place] [address] Radha Renee MD 505 [place] [address] Social History Tobacco Use Types Packs/Day Years [...] [facility] MED [facility] 505 [place] [address] Maria Guadalupe Rodríguez, AC 505 [place] [address] 06/07/2025 1:30 PM EST Office Visit [facility] MED & PEDS 505 [place] [address] Edwige Headley MD 505 [place] [address] documented as of this encounter Goals Goal [...] documented as of this encounter Care Teams Civil Project Engineer Relationship Specialty Start Date End Date Edwige Headley MD [address] [place] [address] PCP - General Family Medicine 08/21/22 documented as of this encounter
--- OUTSIDE RECORDS SUMMARY | 2025-04-06 09:39 | XMS_ITS | Encounter Summary ---
Author Organization [employer] Address [address] [facility] [address] 7t [place] [address] Care Team Providers Care Operating Room Technologist Name Role Phone Edwige Headley MD Primary Care Provider [phone] Reason for Visit * Reason Onset Date Comments Appointment Request 08/17/2024 Encounter Details Date Type Department Care Team ([facility] st Contact Info) Description 08/17/2024 Telephone [facility] MEDICINE 230 [place] [address] Edwige Headley MD 505 [place] [address] Appointment Request Social History Tobacco Use Types [...] Description 04/26/2025 11:00 AM EST Clinical Support [facility] MED & PEDS 505 [place] [address] Maria Guadalupe Rodríguez RN 505 [place] [address] 06/07/2025 1:30 PM EST Office Visit [facility] MED & PEDS 505 [place] [address] Edwige Headley MD 505 [place] [address] documented as of this encounter Goals Goal [...] documented as of this encounter Care Teams Operating Room Technologist Relationship Specialty Start Date End Date Edwige Headley MD 230 [place] [address] PCP - General Family Medicine 08/21/22 documented as of this encounter
--- OUTSIDE RECORDS SUMMARY | 2025-04-06 09:39 | XMS_ITS | Encounter Summary ---
Author Organization [employer] Address [address] 7t [place] [address] Care Team Providers Care Nickel Plater Name Role Phone Edwige Headley MD Primary Care Provider [phone] Reason for Visit * Reason Onset Date Comments PT-1 03/28/2024 Encounter Details Date Type Department Care Team ([facility] st Contact Info) Description 03/28/2024 Telephone [facility] MEDICINE 230 [place] [address] Edwige Headley MD 505 [place] [address] PT-1 Social History Tobacco Use Types Packs/Day [...] Y/N: Yes Provider name or facility name: [facility] Facility Address: [address] [place] [address] Escort needed: Y/N: Yes Do you have a wheelchair: Y/N: No If yes- Manual or electric: (Uses Walker) Visits: Once a month documented in this encounter Plan of Treatment Upcoming Encounters Date Type Department Care Team (Late st Contact Info) Description 04/26/2025 11:00 AM EST Clinical Support [facility] MED & PEDS 505 [place] [address] Maria Guadalupe Rodríguez RN 505 [place] [address] 06/07/2025 1:30 PM EST Office Visit [facility] MED & PEDS 505 [place] [address] Edwige Headley MD 505 [place] [address] documented as of this encounter Goals Goal [...] documented as of this encounter Care Teams Nickel Plater Relationship Specialty Start Date End Date Edwige Headley MD 230 [place] [address] PCP - General Family Medicine 08/21/22 documented as of this encounter
--- OUTSIDE RECORDS SUMMARY | 2025-04-06 09:39 | XMS_ITS | Data Portability ---
Author Organization [employer] [facility] Address [address] [place] [id number] Care Team Providers Care Preschool Adviser Name Role Phone HIM CCA OTHER Unavailable OTHER Assessment Encounter Date Assessment Date Assessment LastModified by Organization Details LastModified Time 10/13/2023 10/13/2023 I have reviewed and agree with the assessment and plan as documented by the ad operations specialist. I provided real-time medical direction for this [...] topical cream 2023 024 [facility], [address] [place] [address], [id number], 14:48:38 Patient TargetsNo targets recorded. Patient InstructionsNo [...] t Available Vitals Date Recorded Oxygen saturation Body weight Respiratory rate Body temperature Heart rate Systolic And Diastolic Provider Name and Address Organization Details Last Updated DateTime 4 99 % 32369.6 16 g 16 /min 98.1 [degF] 86 /min 138/90 mm[Hg] Not Available [facility] - production 4 18:14:31 Social History None [...] ICD10 Code Diagnosis IMO Codes Diagnosis Note [id number] Rita Haile MD Main - [facility] [address] [place] [phone] 10/13/2023 18:14:24 10/14/2023 10:34:19 Contact dermatitis 84608367 L25.9 Health Concerns Section Related Observation LastModified by Organization Detai ls LastModified Time None Recorded Concern Status LastModified by Organization Details LastModified Time None Recorded Advance Directives Directive None Recorded Payers Insurance Date Sequence Insurance Name Policy Number Policy Sifuentes Covered Member ID Sifuentes Member ID Guarantor Name 10/13/[address] [facility] - DOS ON OR AFTER 2022 - MEDICARE [place]AGE [place] (MEDICARE REPLACEMENT/ADV ANTAGE - PPO) Ed Kumarpo [id number] Ed Kumarpo 10/13/[address] [facility] - DOS ON OR AFTER 2022 - DUAL ELIGIBLE - [employer] OPTIONS AND ONE CARE (MEDICARE REPLACEMENT/ADV ANTAGE - HMO) Ed Kumarpo [id number] Ed Kumarpo Notes Date Note Type Note Provider Name [...] .................... .................... .................... .................... .................... .................... . Director Of Residence Life Note From Michael Nielson: Pt co rash/redness [...] . Disposition: Fulfilled Rita Haile MD [address] [facility],[address], [place], [address], [employer] 10/13/2023 19:19:35 OBGyn Episode No OBEpisode recorded.
--- OUTSIDE RECORDS SUMMARY | 2025-04-06 09:39 | XMS_ITS | Encounter Summary ---
Author Organization [employer] Address [address] [facility] [address] 7t [place] [address] Care Team Providers Care Control Panel Tester Name Role Phone Edwige Headley MD Primary Care Provider [phone] Reason for Visit * Reason Comments Med Refill Encounter Details Date Type Department Care Team ([facility] st Contact Info) Description 10/16/2023 Refill [facility] CHC MED & PEDS 505 [place], [place] [phone] Edwige Headley MD 505 [place] [address] Social History Tobacco Use Types Packs/Day Years [...] AM EST Clinical Support [facility] MED & PEDS 505 [place] [address] Maria Guadalupe Rodríguez, AC 505 [place] [address] 06/07/2025 1:30 PM EST Office Visit [facility] MED & PEDS 505 [place] [address] Edwige Headley MD 505 [place] [address] documented as of this encounter Goals Goal [...] documented as of this encounter Care Teams Control Panel Tester Relationship Specialty Start Date End Date Edwige Headley MD 230 [place] [address] PCP - General Family Medicine 08/21/22 documented as of this encounter
--- OUTSIDE RECORDS SUMMARY | 2025-04-06 09:39 | XMS_ITS | Encounter Summary ---
Author Organization [employer] Address [address] [facility] [address] 7t [place] [address] Care Team Providers Care Cell Maker Name Role Phone Edwige Headley MD Primary Care Provider [phone] Reason for Visit * Reason Comments Med Refill Encounter Details Date Type Department Care Team ([facility] st Contact Info) Description 04/01/2025 Refill [facility] CHC MED & PEDS 505 [place], [place] [phone] Edwige Headley MD 505 [place] [address] Fibromyalgia Social History Tobacco Use Types Packs/Day [...] Description 04/26/2025 11:00 AM EST Clinical Support [facility] MED & PEDS 505 [place] [address] Maria Guadalupe Rodríguez, AC 505 [place] [address] 06/07/2025 1:30 PM EST Office Visit [facility] MED & PEDS 505 [place] [address] Edwige Headley MD 505 [place] [address] documented as of this encounter Goals Goal [...] documented as of this encounter Care Teams Cell Maker Relationship Specialty Start Date End Date Edwige Headley MD 230 [place] [address] PCP - General Family Medicine 08/21/22 documented as of this encounter
--- OUTSIDE RECORDS SUMMARY | 2025-04-06 09:39 | XMS_ITS | Encounter Summary ---
Author Organization [employer] Address 75 [facility] 7t [place] [address] Care Team Providers Care City Planning Aide Name Role Phone Edwige Headley MD Primary Care Provider [phone] Encounter Details Date Type Department Care Team (Late st Contact Info) Description 08/03/2024 Orders Only [facility] MEDICINE 230 [place] [address] Radha Renee MD 505 [place] [address] Alzheimer's disease, unspecified (CODE) ([facility]) Social History Tobacco Use Types [...] 11:00 AM EST Clinical Support [facility] MED & PEDS 505 [place] [address] Maria Guadalupe Rodríguez, AC 505 [place] [address] 06/07/2025 1:30 PM EST Office Visit [facility] MED & PEDS 505 [place] [address] Edwige Headley MD 505 [place] [address] documented as of this encounter Goals Goal Patient Goal Type Associated Problems Recent Progress Patient-Stated? Author Use the inhalers as prescribed by provider; Flovent HFA scheduled and albuterol as needed General No Marcel Garcia, PharmD Take your medication every day Lifestyle No Macrel Garcia PharmD documented as of this encounter Visit Diagnoses Diagnosis Alzheimer's disease, unspecified (CODE) (HCC) documented in this encounter Additional Health Concerns Assessment Noted Time PHQ-9 Depression Total Score: 024 12:52 PM EDT documented as of this encounter Care Teams City Planning Aide Relationship Specialty Start Date End Date Edwige Headley MD 230 [place] [address] PCP - General Family Medicine 08/21/22 documented as of this encounter
--- OUTSIDE RECORDS SUMMARY | 2025-04-06 09:39 | XMS_ITS | Encounter Summary ---
Author Organization [employer] Address [address] [facility] [address] 7t [place] [address] Care Team Providers Care Supervisor Fleshing Name Role Phone Edwige Headley MD Primary Care Provider [phone] Reason for Visit * Reason Onset Date Comments Med Refill 11/13/2024 Encounter Details Date Type Department Care Team ([facility] st Contact Info) Description 11/13/2024 Telephone [facility] MEDICINE 230 [place] [address] Edwige Headley MD 505 [place] [address] Med Refill Social History Tobacco Use Types [...] 50 MG tablet To be sent to: [facility] pharmacy documented in this encounter Plan of Treatment Upcoming Encounters Date Type Department Care Team (Late st Contact Info) Description 04/26/2025 11:00 AM EST Clinical Support [facility] MED & PEDS 505 [place] [address] Maria Guadalupe Rodríguez RN 505 [place] [address] 06/07/2025 1:30 PM EST Office Visit [facility] MED & PEDS 505 [place] [address] Edwige Headley MD 505 [place] [address] documented as of this encounter Goals Goal [...] as of this encounter Care Teams Supervisor Fleshing Relationship Specialty Start Date End Date Edwige Headley MD 230 [place] [address] PCP - General Family Medicine 08/21/22 documented as of this encounter
--- OUTSIDE RECORDS SUMMARY | 2025-04-06 09:39 | XMS_ITS | Encounter Summary ---
Author Organization [employer] Address [address] [facility] [address] 7t [place] [address] Care Team Providers Care Motor Vehicle Representative Name Role Phone Edwige Headley MD Primary Care Provider [phone] Reason for Visit * Reason Onset Date Comments Med Refill 03/20/2025 Encounter Details Date Type Department Care Team ([facility] st Contact Info) Description 03/20/2025 Telephone [facility] MEDICINE 230 [place] [address] Edwige Headley MD 505 [place] [address] Med Refill Social History Tobacco Use Types [...] MG tablet To be sent to: - [facility] [place], [place] - 230 [facility] documented in this encounter Plan of Treatment Upcoming Encounters Date Type Department Care Team (Late st Contact Info) Description 04/26/2025 11:00 AM EST Clinical Support [facility] MED & PEDS 505 [place] [address] Maria Guadalupe Rodríguez RN 505 [place] [address] 06/07/2025 1:30 PM EST Office Visit [facility] MED & PEDS 505 [place] [address] Edwige Headley MD 505 [place] [address] documented as of this encounter Goals Goal [...] as of this encounter Care Teams Motor Vehicle Representative Relationship Specialty Start Date End Date Edwige Headley MD 230 [place] [address] PCP - General Family Medicine 08/21/22 documented as of this encounter
--- OUTSIDE RECORDS SUMMARY | 2025-04-06 09:39 | XMS_ITS | Encounter Summary ---
Author Organization [employer] Address [address] 7t [place] [address] Care Team Providers Care Hydrogen Cell Tender Name Role Phone Edwige Headley MD Primary Care Provider [phone] Reason for Visit * Reason Onset Date Comments Appointment Request 09/05/2024 Encounter Details Date Type Department Care Team ([facility] st Contact Info) Description 09/05/2024 Telephone [facility] MEDICINE 230 [place] [address] Edwige Headley MD 505 [place] [address] Appointment Request Social History Tobacco Use Types [...] [facility] 505 [place] [address] Maria Guadalupe Rodríguez, AC 505 [place] [address] 06/07/2025 1:30 PM EST Office Visit [facility] MED & PEDS 505 [place] [address] Edwige Headley MD 505 [place] [address] documented as of this encounter Goals Goal [...] documented as of this encounter Care Teams Hydrogen Cell Tender Relationship Specialty Start Date End Date Edwige Headley MD 230 [place] [address] PCP - General Family Medicine 08/21/22 documented as of this encounter
--- OUTSIDE RECORDS SUMMARY | 2025-04-06 09:39 | XMS_ITS | Encounter Summary ---
Author Organization [employer] Address [address] [facility] [address] 7t [place] [address] Care Team Providers Care Pool Cleaner Name Role Phone Edwige Headley MD Primary Care Provider [phone] Reason for Visit * Reason Onset Date Comments Lab Orders 07/06/2024 Encounter Details Date Type Department Care Team ([facility] st Contact Info) Description 07/06/2024 Telephone [facility] MEDICINE 230 [place] [address] Edwige Headley MD 505 [place] [address] Lab Orders Social History Tobacco Use Types [...] TC x 3 placed to pt via [facility] medical interpreter (Ace ID#[id number]) to inform a tuberculosis lab order was placed by the provider for her to have done at her convenience. Pt verbalized understanding and deniesquestions or concerns at this time. * Telephone Encounter - Mau Overton - 07/06/2024 4:20 PM EST Tc from pt returning call. Pt needs an Prevention Coordinator. * Telephone Encounter - Zoë Dorantes RN - 07/06/2024 3:33 PM EST TC placed to pt via [facility] medical interpreter (ID#[id number]) to inform a tuberculosis lab order was [...] [facility] MED & PEDS 505 [place] [address] Maria Guadalupe Rodríguez RN 505 [place], [place] 06/07/2025 1:30 PM EST Office Visit [facility] MED & PEDS 505 [place] [address] Edwige Headley MD 505 [place] [address] documented as of this encounter Goals Goal [...] Results * T-SPOT??.TB (07/07/2024 9:23 AM EST) [facility] T Spot TB Negative Negative [facility] Comment:A negative test resu lt [...] as aquantitative test. TS PANEL A 0 [facility] TS PANEL B 0 [facility] Negative Control Passed [facility] Positive Control Passed [facility] Comment:For additional infor nika, please refer tohttp://education.[employer]/faq/PTX143(This link is being provided for informational/educational purposes only.)THIS TEST WAS PERFORMED AT:[employer] [id number] [place] [address]LBLDSHZVIRGINIA DAN MD,PHD 07/07/2024 9:23 AM EST 07/07/2024 1:55 PM EST us Edwige Headley MD LAB BLOOD ORDERABLES Final Re sult [facility] [address] [place] [address] [phone] documented in this encounter Visit Diagnoses Diagnosis Encounter for screening for respiratory tuberculosis documented in this encounter Additional Health Concerns Assessment Noted Time PHQ-9 Depression Total Score: 10 024 12:52 PM EDT documented as of this encounter Care Teams Pool Cleaner Relationship Specialty Start Date End Date Edwige Headley MD 230 [place] [address] PCP - General Family Medicine 08/21/22 documented as of this encounter
--- OUTSIDE RECORDS SUMMARY | 2025-04-06 09:39 | XMS_ITS | Encounter Summary ---
Author Organization [employer] Address [address] [facility] 7 [place] [address] Care Team Providers Care Economics Consultant Name Role Phone Edwige Headley MD Primary Care Provider [phone] Reason for Visit * Reason Comments Med Refill Encounter Details Date Type Department Care Team ([facility] st Contact Info) Description 04/04/2025 Refill [facility] CHC MED & PEDS 505 [place], [place] [phone] Teressa Maher MD 505 [place] [address] Social History Tobacco Use Types Packs/Day Years [...] [facility] MED & PEDS 505 [place] [address] Maria Guadalupe Rodríguez, AC 505 [place] [address] 06/07/2025 1:30 PM EST Office Visit [facility] MED & PEDS 505 [place] [address] Edwige Headley MD 505 [place] [address] documented as of this encounter Goals Goal [...] documented as of this encounter Care Teams Economics Consultant Relationship Specialty Start Date End Date Edwige Headley MD [address] [place] [address] PCP - General Family Medicine 08/21/22 documented as of this encounter
--- OUTSIDE RECORDS SUMMARY | 2025-04-06 09:39 | XMS_ITS | Encounter Summary ---
Author Organization [employer] Address [address] [facility] [address] 7t [place] [address] Care Team Providers Care Residential Case Manager Name Role Phone Edwige Headley MD Primary Care Provider [phone] Reason for Visit * Reason Onset Date Comments PT1 03/13/2025 Encounter Details Date Type Department Care Team ([facility] st Contact Info) Description 03/13/[address] [facility] MEDICINE [address] [place] [address] Edwige Headley MD 505 [place] [address] PT1 Social History Tobacco Use Types Packs/Day [...] Description 04/26/2025 11:00 AM EST Clinical Support [facility] MED & PEDS 505 [place] [address] Maria Guadalupe Rodríguez, RN 505 [place] [address] 06/07/2025 1:30 PM EST Office Visit [facility] MED & PEDS 505 [place] [address] Edwige Headley MD 505 [place] [address] documented as of this encounter Goals Goal [...] documented as of this encounter Care Teams Residential Case Manager Relationship Specialty Start Date End Date Edwige Headley MD 230 [place] [address] PCP - General Family Medicine 08/21/22 documented as of this encounter
--- OUTSIDE RECORDS SUMMARY | 2025-04-06 09:39 | XMS_ITS | Encounter Summary ---
Author Organization [employer] Address [address] [facility] [address] 7t [place] [address] Care Team Providers Care Mails Supervisor Name Role Phone Edwige Headley MD Primary Care Provider [phone] Reason for Visit * Reason Comments Med Refill Encounter Details Date Type Department Care Team ([facility] st Contact Info) Description 08/13/2023 Refill [facility] CHC MED & PEDS [address] [place], [place] [phone] Edwige Headley MD 505 [place] [address] Social History Tobacco Use Types Packs/Day Years [...] [facility] MED & PEDS [address] [place] [address] Maria Guadalupe Rodríguez, AC 505 [place] [address] 06/07/2025 1:30 PM EST Office Visit [facility] MED & PEDS [address] [place] [address] Edwige Headley MD 505 [place] [address] documented as of this encounter Goals Goal [...] documented as of this encounter Care Teams Mails Supervisor Relationship Specialty Start Date End Date Edwige Headley MD 230 [place] [address] PCP - General Family Medicine 08/21/22 documented as of this encounter
--- OUTSIDE RECORDS SUMMARY | 2025-04-06 09:39 | XMS_ITS | Encounter Summary ---
Author Organization [employer] Address [address] [facility] [facility] [address]t [place] [address] Care Team Providers Care Plating Department Helper Name Role Phone Edwige Headley MD Primary Care Provider [phone] Reason for Visit * Reason Onset Date Comments Hospital Follow-up 05/25/2024 Encounter Details Date Type Department Care Team ([facility] st Contact Info) Description 05/25/2024 Telephone [facility] MEDICINE 230 [place] [address] Edwige Headley MD [address] [place] [address] Hospital Follow-up Social History Tobacco Use Types [...] encounter Miscellaneous Notes * Telephone Encounter - Amu Tian - 05/25/2024 2:59 PM EST Tc from pt requesting a HDF appt. Hospital: [facility] Date of admission: 05/16/2024 Discharge date: 2024 Diagnosed: Discuss with pt. *Send message to [facility] Clinical Care Coordinators documented in this encounter Plan of Treatment Upcoming Encounters Date Type Department Care Team (Late st Contact Info) Description 04/26/2025 11:00 AM EST Clinical Support [facility] MED & PEDS 505 [place] [address] Maria Guadalupe Rodríguez RN 505 [place] [address] 06/07/2025 1:30 PM EST Office Visit [facility] MED & PEDS 505 [place] [address] Edwige Headley MD 505 [place] [address] documented as of this encounter Goals Goal [...] documented as of this encounter Care Teams Plating Department Helper Relationship Specialty Start Date End Date Edwige Headley MD 230 [place] [address] PCP - General Family Medicine 08/21/22 documented as of this encounter
--- NOTE | 2025-04-06 09:40 | A.OFFVIS_ITS ---
Intake Visit Reasons: 1 year PVR Intake Note: Patient is present for a 1yr follow up with PVR Urology Medication:Estradiol Antibiotic Allergy:NONE Blood Thinner:ASPIRIN PVR:0ML Pipe Finisher Required: Yes Pipe Finisher Name: [id number] Information Interpreted: non-clinical & clinical Allergies pregabalin (From Lyrica) Allergy (Intermediate, Verified 04/06/25 09:40) Rash HPI Comments Details: 04/06/25--Ed is here for annual follow-up she has been evaluated microscopic hematuria, chronic cystitis, lower urinary tract symptoms slowing of urinary stream. History of Present Illness The patient is a 79-year-old individual presenting with an annual follow-up for microscopic hematuria and chronic lower urinary tract symptoms. The patient has been evaluated in the past for microscopic hematuria, which has shown trace blood in the urine but no signs of infection. The condition has been stable over time, with ongoing monitoring. The patient also experiences chronic lower urinary tract symptoms, including a slowing of the urinary stream and difficulty initiating urination. The patient reports a sensation of urgency without immediate urination, sometimes waiting up to 15 minutes before being able to void normally. The bladder examination indicates that the patient is emptying well, despite these symptoms. The patient has been using estrogen cream as a preventative measure for cystitis, applying it three times a week initially, and now advised to use it nightly. The patient applies a small amount internally, as instructed, to help with tissue health. Results - Urinalysis: blood 1+, no signs of infection Plan 1. Microscopic Hematuria - Continue monitoring urine for signs of infection and blood. 2. Chronic Lower Urinary Tract Symptoms - Encourage patient to be patient with urination process, allowing time for urine to flow. 3. Cystitis - Continue use of estrogen cream nightly to maintain tissue health. 04/03/24--8 week fu meds, PVR Ed is a 78-year-old female who is followed for history of microscopic hematuria, chronic cystitis and lower urinary tract symptoms of slowing of urinary stream. Last visit 01/26/2024 office cystoscopy noted urethral narrowing and she was started on Flomax. The patient states the medication did not help so she stopped it. Currently she denies any urinary incontinence. She has been using the Estrace cream. Bladder scan PVR is within normal limits. We will continue to monitor. 01/26/2024--here for cystoscopy. Cystoscopy findings bladder wall thickening, urethral narrowing. We will hold on Myrbetriq and start Flomax 0.4 mg at bedtime. Discussed possible side effects of dizziness and decrease in blood pressure. The patient's daughter states that her mother has episodes of being unbalanced she was evaluated by ENT and they did not find anything. The patient lives with her daughter. Discussed if any side effects to stop medication and give our office a call. 12/14/23--Ed is a very pleasant 78-year-old Frisian-speaking female patient of Dr. Headley. She presents to the office today for a follow up of her ongoing urological issues. She has a past medical history of asthma, DM, migraine headaches, GERD, CAD, vertigo, anxiety, chronic kidney disease stage 2, cervical disc disorder, carpal tunnel syndrome, vitamin-D deficiency, hypertension, chronic diastolic heart failure, dementia Alzheimer's, osteoporosis, left breast nodule, and PVD. In discussion with the patient today she reports noting episodes of gross hematuria since her last office visit here approximately 4 months ago. She reports she had been compliant with Estrace and Myrbetriq as prescribed however has since recently ran out of refills. She does have a longstanding history of microscopic hematuria and has underwent multiple cystoscopy in the past in [place] in 2011 and again in 2020 both that she notes were within normal limits. She denies any smoking history and or known workplace chemical exposure. She reports that although she has experienced episodes of gross hematuria she has had no bothersome urinary issues or concerns since her last office visit here. She denies urinary urgency, urinary frequency, incontinence, flank pain, foul-smelling urine, fever, and or chills. Discussed at length potential causes for hematuria. I discussed reasons for blood in the urine may include but are not limited to kidney stones, cancer in the urinary tract, kidney stone disease or inflammatory conditions of the urinary tract. In office urinalysis results reviewed with the patient today microscopic hematuria noted otherwise negative leukocytes negative nitrates. PVR 16 mL She otherwise offers no other issues or concerns at this time. [facility], [facility] Medical History Atherosclerotic cardiovascular disease PVD (peripheral vascular disease) Breast nodule Urinary incontinence Osteoporosis Dementia in Alzheimer's disease Chronic diastolic (congestive) heart failure Hypertension Vitamin D deficiency Carpal tunnel syndrome Cervical disc disorder CKD (chronic kidney disease), stage II TONY (generalized anxiety disorder) Vertigo CAD (coronary artery disease) GERD (gastroesophageal reflux disease) Migraine Diabetes mellitus Asthma Surgical History H/O hand surgery Hx of cardiac catheterization History of hernia repair History of left inguinal hernia repair History of right inguinal hernia repair History of cholecystectomy Hx of colonoscopy History of esophagogastroduodenoscopy (EGD) Family History Mother Heart problem Arthritis Social History Household Members: Spouse, Family and Children Housing: House Alcohol intake: never Patient Tobacco Use Status: Never used Tobacco Second Hand Smoke Exposure: No service: No Office Procedures Post Void Residual Post Residual Void Post Void Residual (PVR): 0 [id number] Void Residual by ultrasound Results AMB Urinalysis, Automated UA Leukoctes 0 Taqueria/uL Last Edit by Lazara Bynum on 04/06/25 15:22 UA Nitrite Negative Last Edit by Lazara Bynum on 04/06/25 15:22 UA Urobilinogen 0.2 mg/dL Last Edit by Lazara Bynum on 04/06/25 15:22 UA Protein 0 mg/dL Last Edit by Lazara Bynum on 04/06/25 15:22 UA pH 7.0 Last Edit by Lazara Bynum on 04/06/25 15:22 UA Blood 25 Flavio/uL Last Edit by Lazara Bynum on 04/06/25 15:22 UA Specific [place] 1.010 Last Edit by Lazara Bynum on 04/06/25 15:22 UA Ketone Negative Last Edit by Lazara Bynum on 04/06/25 15:22 UA Bilirubin 0 mg/dL Last Edit by Lazara Bynum on 04/06/25 15:22 UA Glucose 0 mg/dL Last Edit by Lazara Bynum on 04/06/25 15:22 Assessment & Plan Assessment & Plan Orders: Orders AMB Urinalysis Automated Today Z13.9 - Encounter for screening, unspecified AMB Post Void Residual by ultrasound Today R39.14 - Feeling of incomplete bladder emptying Coding CPT Codes Post Residual Void - PVR CPT Code: 18630-[id number] Void Residual by ultrasound ([id number])
== END 2025-04-06 10:58 | disposition home or self-care (01) ==
LOC: HO.HUSH 09:19
PROVIDERS: PCP Family Medicine; Visit Provider Urology
DX: Z13.9 Encounter for screening, unspecified (principal)

== ENCOUNTER → 2025-04-06 09:18 | Outpatient (BNVA) | payer OTHER, SELFPAY | PROVIDERS: PCP Family Medicine; Visit Provider Urology | DX: R39.14 Feeling of incomplete bladder emptying (principal) | CPT/HCPCS: 51798; 81003 ==

== ENCOUNTER 2025-04-09 11:14 | Outpatient (AMB) | payer OTHER, SELFPAY ==
--- NOTE | 2025-04-09 11:26 | MHC.OFFVIS ---
Intake Visit Reasons: Headache migraine Allergies pregabalin (From Lyrica) Allergy (Intermediate, Verified 04/06/25 09:40) Rash HPI Comments Details: 79 yo woman with type II DM, migraine, RLS, and dementia. She is presenting for management of memory loss, depression, and leg paresthesias. The patient has a known diagnosis of Alzheimer's disease and presents with forgetfulness, which is consistent with moderate dementia. The caregiver reports that the patient becomes aware of making mistakes, which is challenging and results in a depressed mood. The patient also reports new symptoms of feeling an intense, electric sensation running through the legs, which can be painful and cause sleep disturbances. The patient's legs also move involuntarily at night. Current medications include Memantine for memory. A medication for depression was previously prescribed, but the patient is not currently taking it. [facility] Medical History Atherosclerotic cardiovascular disease PVD (peripheral vascular disease) Breast nodule Urinary incontinence Osteoporosis Dementia in Alzheimer's disease Chronic diastolic (congestive) heart failure Hypertension Vitamin D deficiency Carpal tunnel syndrome Cervical disc disorder CKD (chronic kidney disease), stage II TONY (generalized anxiety disorder) Vertigo CAD (coronary artery disease) GERD (gastroesophageal reflux disease) Migraine Diabetes mellitus Asthma Surgical History H/O hand surgery Hx of cardiac catheterization History of hernia repair History of left inguinal hernia repair History of right inguinal hernia repair History of cholecystectomy Hx of colonoscopy History of esophagogastroduodenoscopy (EGD) Family History Mother Heart problem Arthritis Social History Household Members: Spouse, Family and Children Housing: House Alcohol intake: never Patient Tobacco Use Status: Never used Tobacco Second Hand Smoke Exposure: No service: No Review of Systems Narrative - Neurological: Reports an electric sensation, pain, and involuntary movements in the legs at night. - Reports significant forgetfulness. - Psychiatric: Reports feeling depressed. Physical Exam Neuro Other: Mental Status: She is alert and awake with normal spontaneity of speech fluency comprehension and anxious affect. Cranial Nerves: CN II: Visual jimenez full to confrontation, visual acuity intact. CN III, IV, : Pupils equal, round, reactive to light and accommodation. Extraocular movements are normal. CN V: Facial sensation is normal. CN VII: Facial movements symmetrical. CN VIII: Hearing intact to bedside conversation is normal. CN IX, X: Palate elevates symmetrically. CN XI: Shoulder shrug and head turn symmetrical. CN XII: Tongue midline without atrophy or fasciculations. Walking with a walker. Extrapyramidal: Full facial expressions and blinking. No rigidity. Movements are appropriate with no tremor or abnormality. Speech: Normal; no dysarthria or tremor. Assessment & Plan Assessment & Plan (1) Alzheimer dementia: Comment: CT brain Perfusion SPECT [facility] 2020: dec activity in both b/l frontal, parietal and temporal lobes. Code(s): G30.9 - Alzheimer's disease, unspecified; F02.80 - Dementia in other diseases classified elsewhere, unspecified severity, without behavioral disturbance, psychotic disturbance, mood disturbance, and anxiety Category: Medical Qualifiers: Alzheimer's disease onset: late onset Dementia severity: moderate Dementia behavioral or psychological symptom: with other behavioral disturbance Qualified Code(s): G30.1 - Alzheimer's disease with late onset; F02.B18 - Dementia in other diseases classified elsewhere, moderate, with other behavioral disturbance (2) Migraine: Code(s): G43.909 - Migraine, unspecified, not intractable, without status migrainosus Category: Medical Qualifiers: Migraine type: migraine (< 15 days per month) without aura Status migrainosus presence: without status migrainosus Intractability: not intractable Qualified Code(s): G43.009 - Migraine without aura, not intractable, without status migrainosus (3) RLS (restless legs syndrome): Code(s): G25.81 - Restless legs syndrome Category: Medical Plan Impression: a: Dementia probably of Alzheimer type b: Depression c: Restless leg syndrome Rec: a: Venlafaxine 75mg a day b: Memantine 5mg bid c: Ropinorole 0.25mg one at bedtime Medications: New ropinirole administer 1-3 hours before bedtime 0.25 mg PO BEDTIME 90 tabs 1RF venlafaxine ER 75 mg PO DAILY 90 caps 1RF memantine 5 mg PO BID 180 tabs 1RF 30 days Coding Level of Care Code Est Pt Level 4 (07211) Diagnoses Moderate late onset Alzheimer's dementia with other behavioral disturbance G30.1; F02.B18 Alzheimer's disease onset: late onset Dementia severity: moderate Dementia behavioral or psychological symptom: with other behavioral disturbance Migraine without aura and without status migrainosus, not intractable G43.009 Migraine type: migraine (< 15 days per month) without aura Status migrainosus presence: without status migrainosus Intractability: not intractable RLS (restless legs syndrome) G25.81
--- OUTSIDE RECORDS SUMMARY | 2025-04-09 14:36 | XMS_ITS | Clinical Summary ---
Author Organization [employer] Address [address] [facility] 7[address] [place] [address] Care Team Providers Care Marketing Regional Consultant Name Role Phone Edwige Headley MD Primary Care Provider [phone] Allergies Active Allergy Reactions Criticality Noted Date [...] each 023 Active Lancets (OneTouch Delica Plus [id number]) misc 1 Units in the morning. Please [...] 5 MG tabletIndicatio ns:Alzheimer's disease, unspecified (CODE) ([facility]) TAKE 1 TABLET BY MOUTH TWICE DAILY IN THE MORNING AND IN THE EVENING 60 tablet 2 025 Active losartan (Cozaar) 25 MG tablet TAKE 1 TABLET BY MOUTH EVERY MORNING 90 tablet 1 025 Active TRUEplus Lancets 33G miscIndications :Type 2 diabetes mellitus with hyperglycemia, without long-term current use of insulin ([facility]) USE THREE TIMES DAILY TO TEST BLOOD [...] Trelegy , which was prescribed by a net developer architect. Oxygen saturation appears stable at rest, but there is a need to assess for desaturation with ambulation. Plan: - Continue Trelegy 262.5/25 as prescribed by net developer architect - Assess oxygen saturation with ambulation - Consider low-dose chronic steroids (to be discussed with net developer architect) - Follow up with net developer architect on the of the current month Bilateral [...] swallow test came back normal. Referred to or first assist registered nurse Assessment & Plan (07/20/2023 9:51 PM EST): [...] be prescribed steroids. Recommended patient to call T[facility] to schedule an appointment to get further assistance. Alzheimer's dementia ([facility]) 08/21/2022 Assessment & Plan (03/16/2024 2:25 PM [...] Coping skills for Anxiety c. Contact this commercial real estate underwriter for support as needed Encounters Date Type Department Care Team Description 04/04/2025 Refill [facility] [address] [place] [address] Teressa Maher MD 04/01/2025 Refill [facility] [address] [place] [address] Edwige Headley MD Fibromyalgia 03/21/2025 Telephone [facility] [address] [place] [address] Edwige Headley MD Med Refill 03/21/2025 Results Follow-Up [facility] [address] [place] [address] Radha Renee MD XR Lumbar Spine Complete 4+ Views 03/20/2025 Refill [facility] [address] [place] [address] Edwige Headley MD 03/20/2025 Refill [facility] [address] [place] [address] Maria Guadalupe Rodríguez RN Fibromyalgia 03/20/2025 Telephone [facility] MEDICINE [address] [place] [address] Edwige Headley MD Med Refill 03/13/2025 Patient Outreach [facility] MEDICINE [address] [place] [phone] Edwige Headley MD Care Coordination (W outreach for [facility] [id number] ral completed /) 03/13/2025 Telephone [facility] MEDICINE [address] [place] [address] Edwige Headley MD PT1 02/24/2025 Refill [address] [place] [address] Teressa Maher MD 02/21/2025 11:00 AM EDT Clinical Support [facility] [address] [place] [address] Maria Guadalupe Rodríguez RN Long-term current use of opiate analgesic (Primary Dx) 02/21/2025 Travel 02/21/2025 Telephone [facility] [address] [place] [address] Maria Guadalupe Rodríguez RN 02/16/2025 Refill [facility] [address] [place] [address] Edwige Headley MD Fibromyalgia 02/07/2025 Refill [facility] [address] [place] [address] Teressa Maher MD 02/06/2025 Refill [facility] MEDICINE [address] [place] [address] Teressa Maher MD Type 2 diabetes mellitus with hyperglycemia, without long-term current use of insulin ([facility]) 02/03/2025 Refill [facility] [address] [place] [address] Edwige Headley MD Fibromyalgia; Alzheimer's disease, unspecified (CODE) ([facility]) 02/02/2025 Results Follow-Up [facility] MEDICINE [address] [place] [address] Viviana Lou MD Ferritin, Vitamin B12/Folate, Serum Panel 02/01/2025 2:20 PM EDT Office Visit [facility] [address] [place] [address] Viviana Lou MD Pain in both lower extremities (Primary Dx) 02/01/2025 Travel 01/30/2025 Telephone [facility] [address] [place] [address] Maria Guadalupe Rodríguez RN 01/24/2025 Telephone [facility] MEDICINE [address] [place] [address] Edwige Headley MD Appointment Request 01/18/2025 Refill [facility] MED & PEDS [address] [place] [address] Edwige Headley MD Fibromyalgia 01/18/2025 Telephone [facility] MEDICINE [address] [place] [address] Edwige Headley MD Med Refill 01/17/2025 Refill [facility] [address] [place] [address] Radha Renee MD 01/16/2025 Refill [facility] MEDICINE [address] [place] [address] Edwige Headley MD 01/15/2025 Refill [facility] [address] [place] [address] Radha Renee MD 01/12/2025 3:15 PM EDT Office Visit [facility] [address] [place] [address] Edwige Headley MD Iliotibial band syndrome, left (Primary Dx); Atrophic vaginitis 01/12/2025 Travel 01/11/2025 Telephone [facility] [address] [place], [place] [phone] Edwige Headley MD Chart Prep from Last 3 Months Immunizations Immunization Administration [...] 04/26/2025 11:00 AM EST Clinical Support [facility] [address] [place] [address] Maria Guadalupe Rodríguez, AC [address] [place] [address] 06/07/2025 1:30 PM EST Office Visit [facility] [address] [place] [address] Edwige Headley MD [address] [place] [address] Health Maintenance Due Date Last Done Comments [...] Screening 01/12/2026 01/12/2025 Lipid Panel 02/01/2026 02/01/2025, 0409/2023, 08/21/2022 Tobacco Screening 02/01/2026 02/01/2025 DTaP/Tdap/Td Vaccines [...] hyperglycemia, without long-term current use of insulin ([facility]) HIV 1/2 ANTIGEN/ANTIBODY, FOURTH GENERATION W/RFL Routine [...] PM EST Narrative 03/20/2025 1:23 PM EST [address] [address] XRay Report Signed Patient: Ed Holguin MR#: [id number] : 1945 Acct:[id number] Age/Sex: 79 / F ADM Date: 03/20/25 Loc: HO.XRAY Attending Dr: Radha Renee MD Ordering Physician: Radha Renee MD Date of Service: 03/20/25 Procedure(s): XR lumbar spine 4V min Accession Number(s): [id number] cc: Radha Renee MD Reason for Exam: [...] by: Lee Jacobson MD 03/20/2025 01:21 PM [facility] Dictated By: Lee Smith MD Signed By: <Electronically signed by Lee Geller MD in OV> 03/20/25 1321 DD/ 1302 TD/TT: 03/20/25 1313 Farm Demonstrator: Procedure Note Donotuseinterpreter, Image - 03/20/2025 [place] [address] XRay Report Signed Patient: Arthur Holguin#: M [id number] : 6Acct:[id number] Age/Sex: 79 / FADM Date: 03/20/25 Loc: RONAK Attending Dr: Radha Renee MD Ordering Physician: Radha Renee MD Date of Service: 03/20/25 Procedure(s): XR lumbar spine 4V min Accession Number(s): [id number] cc: Radha Renee MD Reason for Exam: [...] by: Lee Jacobson MD 03/20/2025 01:21 PM [facility] Dictated By: Lee Smith MD Signed By: <Electronically signed by Lee Geller MDin OV> 03/20/25 1321 DD/ 1302 TD/TT: 03/20/25 1313 Farm Demonstrator: us Radha Renee MD IMG XR PROCEDURES [...] AM EDT . Internal Pass Control Lot# [id number] Exp: 10-31-26 Edwige Headley MD POINT OF CARE TEST ENTER/EDIT ORDERABLES Final Result * TSH W/Reflex to FT4 (02/01/2025 3:30 PM EDT) Pathologist [facility] TSH reflex Free T4 0.89 0.32 - 4.0 uIU/mL [facility] Blood Venous blood specimen / Unknown 02/01/2025 3:30 PM EDT 02/01/2025 4:03 PM EDT Edwige Headley MD LAB BLOOD ORDERABLES Final Re sult Performing Organization Address [facility]/ZIP Co de Phone Number [facility] [address] [place] [phone] * Vitamin B12/Folate, Serum Panel (02/01/2025 2:59 PM EDT) [facility] Vitamin B12 719 200 - 900 pg/mL [facility] Comment:NORMAL 200-900 PG/ML INDETERMINATE 160-199 PG/ML DEFICIENT < 160 PG/ML Folate 7.9 > or = 4.0 ng/mL [facility] Comment:Reference Values:> o r = [...] Final Result Performing Organization Address [facility]/ZIP Co de Phone Number [facility] [address] [place] [phone] * (ABNORMAL) CBC auto differential (02/01/2025 2:59 PM EDT) [facility] White Blood Count 8.1 4.8 - 10.8 X10*3/uL [facility] Red Blood Count 4.28 4.20 - 5.50 X10*6/uL [facility] Hemoglobin 12.7 12.0 - 16.0 g/dl [facility] Hematocrit 37.7 37.0 - 47.0 % [facility] Mean Corpuscular Volume 88.1 80.0 - 98.0 fL [facility] Mean Corpuscular Hemoglobin 29.7 27.0 - 33.0 pg [facility] Mean Corpuscular HGB Conc 33.7 31.0 - 35.0 g/dl [facility] Red Cell Distribution Width 15.1 11.0 - 16.0 % [facility] Platelet Count 232 160 - 400 X10*3/uL [facility] Mean Platelet Volume 11.2 9.4 - 12.3 fL [facility] Neutrophils Percent Auto 58.3 45 - 73 % [facility] Imm Gran Pct Auto 0.4 0.0 - 0.4 % [facility] Lymphocytes Percent Auto 28.0 20 - 40 % [facility] Monocytes Percent Auto 12.2(H) 2 - 11 % [facility] Eosinophils Percent Auto 0.6 0 - 4 % [facility] Basophils Percent Auto 0.5 0 - 2 % [facility] NRBC Pct Auto 0.0 0.0 - 0.2 /100WBC [facility] Neutrophils Absolute Auto 4.7 2.0 - 8.3 x10*3/uL [facility] Imm Gran Abs Auto 0.03 0.00 - 0.03 X10*3/uL [facility] Lymphocytes Absolute Auto 2.3 1.2 - 4.9 X10*3/uL [facility] Monocytes Absolute Auto 1.0 0.1 - 1.2 X10*3/uL [facility] Eosinophils Absolute Auto 0.1 0.0 - 0.4 X10*3/uL [facility] Basophils Absolute Auto 0.0 0.0 - 0.2 X10*3/uL [facility] NRBC Abs Auto 0.000 0.0 - 0.012 X10*3/uL [facility] Blood Venous blood specimen / Unknown 02/01/2025 2:59 PM EDT 02/01/2025 4:03 PM EDT us Edwige Headley MD LAB BLOOD ORDERABLES Final Re sult Performing Organization Address [facility]/ZIP Co de Phone Number [facility] [address] [place] [address] [phone] * HIV-1/2 Antigen and Antibodies, Fourth Generation, with Reflexes (02/01/2025 2:59 PM EDT) HIV AB/AG Nonreactive Nonreactive [facility] Comment:HIV-1 p24 Ag and/or HIV-1/HIV-2 Ab not detected.A test result that is nonreactive does not exclude thepossibility of exposure to or infection with HIV-1 and/orHIV-2. Nonreactive results in this assay for individualswith prior exposure to HIV-1 and/or HIV-2 may be due toantigen and antibody levels that are below the limit ofdetection of this assay.The FreeCharge HIV Ag/Ab Combo assay result andsupplemental assay [...] City/[facility]/ZIP Co de Phone Number [facility] [address] [place] [address] [phone] * Sed Rate by Modified Jonathonergren (02/01/2025 2:59 PM EDT) Erythrocyte Sedimentation Rate 11 0 - 20 MM/HR [facility] Comment:Patients with polycy themia and many hemoglobin abnormalitiesmay have depressed sed rates whereas patients with anemiamay have elevated sed rates. Blood Venous blood specimen / Unknown 02/01/2025 2:59 PM EDT 02/01/2025 4:14 PM EDT Edwige Headley MD LAB BLOOD ORDERABLES Final Re sult Performing Organization Address [facility] Co de Phone Number [facility] [address] [place] [phone] * C-reactive Protein (02/01/2025 2:59 PM EDT) C Reactive Protein <0.04 < or = 0.50 mg/dL [facility] Blood Venous blood specimen / Unknown 02/01/2025 2:59 PM EDT 02/01/2025 4:03 PM EDT Edwige Headley MD LAB BLOOD ORDERABLES Final Re sult Performing Organization Address [facility] Co de Phone Number [facility] [address] [place] [phone] * Lactate Dehydrogenase (LD) (02/01/2025 2:59 PM EDT) Lactate Dehydrogenase 188 122 - 220 U/L [facility] Blood Venous blood specimen / Unknown 02/01/2025 2:59 PM EDT 02/01/2025 4:03 PM EDT Edwige Headley MD LAB BLOOD ORDERABLES Final Re sult Performing Organization Address [facility] de Phone Number [facility] [address] [place] [phone] * Ferritin (02/01/2025 2:59 PM EDT) Ferritin 13 10 - 250 ng/mL [facility] Blood Venous blood specimen / Unknown 02/01/2025 2:59 PM EDT 02/01/2025 4:03 PM EDT us Viviana Lou MD LAB BLOOD ORDERABLES Final Result Performing Organization Address [facility] Co de Phone Number [facility] [address] [place] [address] [phone] * Lipid Panel, Standard (02/01/2025 2:59 PM EDT) Triglycerides 59 <150 mg/dL [facility] Comment:Desirable Triglyceri de: less than 150 mg/dLBorderline High Triglyceride 150-199 mg/dLHigh Triglyceride: 200-499 mg/dLVery High Triglyceride: greater than or equal to 5OO mg/dL Cholesterol 134 <200 mg/dL [facility] Comment:Desirable Cholestero l: less than 200 mg/dLBorderline High Cholesterol: 200-239 mg/dLHigh Cholesterol: greater than 239 mg/dL LDL Cholesterol Calculated 43 <100 mg/dL [facility] Comment:Desirable LDL: less than 100 mg/dLNear Optimal/Above Optimal LDL: 110- 129 mg/dLBorderline High LDL: 130-159 mg/dLHigh LDL: 160-189 mg/dLVery High LDL: greater than or equal to 190 mg/dL HDL Cholesterol 80 >40 mg/dL [facility] Comment:Desirable HDL: great er than 40 mg/dL Note: This HDL assay may give artificially low results in patients with liver disease. Blood Venous blood specimen / Unknown 02/01/2025 2:59 PM EDT 02/01/2025 4:03 PM EDT us Edwige Headley MD LAB BLOOD ORDERABLES Final Re sult Performing Organization Address [facility] Co de Phone Number [facility] [address] [place] [phone] [phone] * (ABNORMAL) Comprehensive Metabolic Panel (02/01/2025 2:59 PM EDT) Sodium 143 135 - 145 mmol/L [facility] Potassium 4.9 3.3 - 5.1 mmol/L [facility] Chloride 103 96 - 108 mmol/L [facility] Carbon Dioxide 33(H) 22 - 29 mmol/L [facility] Anion Gap 12 12 - 20 [facility] Urea Nitrogen (BUN) 17(H) 9 - 16 mg/dL [facility] Creatinine, Serum 0.76 0.5 - 1.4 mg/dL [facility] Estimated Glomerular Filt Rate >60 [facility] Comment:Chronic Kidney Disea se: Estimated GFR < 60 mL/min/1.71x1Xdiewo Kidney Disease: Estimated GFR < 15 mL/min/1.73m2 Glucose 123(H) 60 - 115 mg/dL [facility] Calcium 10.0 8.4 - 10.2 mg/dL [facility] Bilirubin, Total 0.7 0.0 - 1.0 mg/dL [facility] Aspartate Amino Transferase 29 5 - 31 U/L [facility] Alanine Aminotransferase 24 0 - 31 U/L [facility] Total Protein 7.7 6.5 - 8.0 g/dL [facility] Albumin Level 4.8 3.5 - 5.0 g/dL [facility] Alkaline Phosphatase 82 39 - 117 U/L [facility] Blood Venous blood specimen / Unknown 02/01/2025 2:59 PM EDT 02/01/2025 4:03 PM EDT us Edwige Headley MD LAB BLOOD ORDERABLES Final Re sult [facility] [address] [place] [phone] [phone] * (ABNORMAL) POCT HGB A1C (09/27/2024 3:04 PM EDT) Hemoglobin A1C 6.2(A) 4.0 - 6.0 % QC Media Lot # [id number] Lot# Expiration Date Blood 09/27/2024 3:04 PM EDT us Edwige Headley MD POINT OF CARE TEST ENTER/EDIT ORDERABLES Final Result * Albumin, Random Urine W/Creatinine (07/18/2024 9:57 AM EST) Creatinine, Urine 47.58 mg/dL [facility] Microalbumin Urine 13.0 mg/L [facility] Microalbum Creatinine Ratio Ur 27.3 <30 ug/mg cr [facility] Comment:Albumin/Creatinine R atio Reference Ranges: Normal: < 30 ug/mg creatinine Microalbuminuria: 30 - 300 ug/mg creatinineClinical Albuminuria: > 300 ug/mg creatinine Urine (Urine, Random) 07/18/2024 9:57 AM EST 07/18/2024 2:15 PM EST us Radha Renee MD LAB URINE ORDERABLES Final Result Performing Organization Address [facility]/ZIP Co de Phone Number [facility] [address] [place] [phone] * Hepatitis C Antibody with Reflex to HCV, RNA, Quantitative, Real-Time PCR (07/07/2024 9:23 AM EST) Hepatitis C Antibody Nonreactive Nonreactive [facility] Comment:Antibodies to HCV no t detected; does not exclude early acuteHCV infection. Blood Venous blood specimen / Unknown 07/07/2024 9:23 AM EST 07/07/2024 1:55 PM EST us Radha Renee MD LAB BLOOD ORDERABLES Final Result Performing Organization Address [facility]/ZIP Co de Phone Number [facility] [address] [place] [phone] from Last 3 Months or Most Recently Relevant to Health Maintenance Insurance [employer] [employer] Care Teams Marketing Regional Consultant Relationship Specialty Start Date End Date Edwige Headley MD [address] [place] [address] PCP - General Family Medicine 08/21/22
--- OUTSIDE RECORDS SUMMARY | 2025-04-09 14:36 | XMS_ITS | Encounter Summary ---
Author Organization [employer] Address [address] [facility] [address] [place] [address] Care Team Providers Care Box Bender Name Role Phone Edwige Headley MD Primary Care Provider [phone] Reason for Visit * Reason Onset Date Comments Med Refill 01/18/2025 Encounter Details Date Type Department Care Team (Late st Contact Info) Description 01/18/2025 Telephone [facility] [address] [place] [address] Edwige Headley MD [address] [place] [address] Med Refill Social History Tobacco Use Types [...] MG tablet To be sent to: - [facility] - [place], [place] - [address] [facility] documented in this encounter Plan of Treatment Upcoming Encounters Date Type Department Care Team ([facility] st Contact Info) Description 04/26/2025 11:00 AM EST Clinical Support [facility] [address] [place] [address] Maria Guadalupe Rodríguez RN [address] [place] [address] 06/07/2025 1:30 PM EST Office Visit [facility] [address] [place] [address] Edwige Headley MD [address] [place] [address] documented as of this encounter Goals Goal [...] documented as of this encounter Care Teams Box Bender Relationship Specialty Start Date End Date Edwige Headley MD [address] [place] [address] PCP - General Family Medicine 08/21/22 documented as of this encounter
--- OUTSIDE RECORDS SUMMARY | 2025-04-09 14:37 | XMS_ITS | Encounter Summary ---
Author Organization [employer] Address [address] [facility] 7 [place] [address] Care Team Providers Care Television Maintenance Worker Name Role Phone Edwige Headley MD Primary Care Provider [phone] Reason for Visit * Reason Comments Med Refill Encounter Details Date Type Department Care Team ([facility] st Contact Info) Description 10/23/2024 Refill [facility]EDS [address] [place], [place] [phone] Radha Renee MD [address] [place] [address] Social History Tobacco Use Types Packs/Day Years [...] [facility] [address] [place] [address] Maria Guadalupe Rodríguez, AC [address] [place] [address] 06/07/2025 1:30 PM EST Office Visit [facility] [address] [place] [address] Edwige Headley MD [address] [place] [address] documented as of this encounter Goals Goal [...] as of this encounter Care Teams Television Maintenance Worker Relationship Specialty Start Date End Date Edwige Headley MD [address] [place] [phone] PCP - General Family Medicine 08/21/22 documented as of this encounter
--- OUTSIDE RECORDS SUMMARY | 2025-04-09 14:37 | XMS_ITS | Encounter Summary ---
Author Organization [employer] [facility] Address [address] [facility] 7t [place] [address] Care Team Providers Care Molecular Physicist Name Role Phone Edwige Headley MD Primary Care Provider [phone] Reason for Visit * Reason Comments Med Refill Encounter Details Date Type Department Care Team (Late Contact Info) Description 12/04/2022 Refill [facility]EDS [address] [place] [address] Edwige Headley MD [address] [place] [address] Social History Tobacco Use Types Packs/Day Years [...] Description 04/26/2025 11:00 AM EST Clinical Support [facility] [address] [place] [address] Maria Guadalupe Rodríguez, AC [address] [place] [address] 06/07/2025 1:30 PM EST Office Visit [facility] PEDS [address] [place] [address] Edwige Headley MD [address] [place] [address] documented as of this encounter Goals Goal [...] documented as of this encounter Care Teams Molecular Physicist Relationship Specialty Start Date End Date Edwige Headley MD [address] [place] [phone] PCP - General Family Medicine 08/21/22 documented as of this encounter
--- OUTSIDE RECORDS SUMMARY | 2025-04-09 14:37 | XMS_ITS | Encounter Summary ---
Author Organization [employer] Address [address] [facility] 7t [place] [address] Care Team Providers Care Bump Grader Operator Name Role Phone Edwige Headley MD Primary Care Provider [phone] Encounter Details Date Type Department Care Team (Late st Contact Info) Description 08/03/2024 Orders Only [facility] MED[facility] [address] [place] [address] Radha Renee MD [address] [place] [address] Alzheimer's disease, unspecified (CODE) ([facility]) Social History Tobacco Use Types Packs/Day [...] [facility] [address] [place] [address] Maria Guadalupe Rodríguez, AC [address] [place] [address] 06/07/2025 1:30 PM EST Office Visit [facility] PEDS [address] [place] [address] Edwige Headley MD [address] [place] [address] documented as of this encounter Goals Goal [...] documented as of this encounter Care Teams Bump Grader Operator Relationship Specialty Start Date End Date Edwige Headley MD [address] [place] [address] PCP - General Family Medicine 08/21/22 documented as of this encounter
--- OUTSIDE RECORDS SUMMARY | 2025-04-09 14:37 | XMS_ITS | Encounter Summary ---
Author Organization [employer] Address [address] 7t [place] [address] Care Team Providers Care Hide Tanner Name Role Phone Edwige Headley MD Primary Care Provider [phone] Reason for Visit * Reason Onset Date Comments PT1 03/13/2025 Encounter Details Date Type Department Care Team ([facility] st Contact Info) Description 03/13/[address] [facility] MED[facility]INE [address] [place] [address] Edwige Headley MD 505 [place] [address] PT1 Social History Tobacco Use Types Packs/Day [...] Support [facility] 505 [place] [address] Maria Guadalupe Rodríguez, RN 505 [place] [address] 06/07/2025 1:30 PM EST Office Visit [facility] 505 [place] [address] Edwige Headley MD 505 [place] [address] documented as of this encounter Goals Goal [...] documented as of this encounter Care Teams Hide Tanner Relationship Specialty Start Date End Date Edwige Headley MD 230 [place] [address] PCP - General Family Medicine 08/21/22 documented as of this encounter
--- OUTSIDE RECORDS SUMMARY | 2025-04-09 14:37 | XMS_ITS | Encounter Summary ---
Author Organization [employer] Address [address] 7t [place] [address] Care Team Providers Care Micropaleontologist Name Role Phone Edwige Headley MD Primary Care Provider [phone] Reason for Visit * Reason Onset Date Comments Med Refill 03/20/2025 Encounter Details Date Type Department Care Team ([facility] st Contact Info) Description 03/20/2025 Telephone [facility] MEDICINE 230 [place] [address] Edwige Headley MD 505 [place] [address] Med Refill Social History Tobacco Use Types [...] MG tablet To be sent to: - [facility] - [place], [place] - [address] [facility] documented in this encounter Plan of Treatment Upcoming Encounters Date Type Department Care Team (Late st Contact Info) Description 04/26/2025 11:00 AM EST Clinical Support [facility] 505 [place] [address] Maria Guadalupe Rodríguez RN 505 [place] [address] 06/07/2025 1:30 PM EST Office Visit [facility] 505 [place] [address] Edwige Headley MD 505 [place] [address] documented as of this encounter Goals Goal [...] documented as of this encounter Care Teams Micropaleontologist Relationship Specialty Start Date End Date Edwige Headley MD 230 [place] [address] PCP - General Family Medicine 08/21/22 documented as of this encounter
--- OUTSIDE RECORDS SUMMARY | 2025-04-09 14:37 | XMS_ITS | Encounter Summary ---
Author Organization [employer] Address [address] 7t [place] [address] Care Team Providers Care Edge Bonder Name Role Phone Edwige Headley MD Primary Care Provider [phone] Reason for Visit * Reason Onset Date Comments Appointment Request 04/06/2024 Encounter Details Date Type Department Care Team ([facility] st Contact Info) Description 04/06/2024 Telephone [facility] MEDICINE 230 [place] [address] Edwige Headley MD 505 [place] [address] Appointment Request Social History Tobacco Use Types [...] somewhere else. Contac pt to r/s at [phone] documented in this encounter Plan of Treatment Upcoming Encounters Date Type Department Care Team (Late st Contact Info) Description 04/26/2025 11:00 AM EST Clinical Support [facility] 505 [place] [address] Maria Guadalupe Rodríguez RN 505 [place] [address] 06/07/2025 1:30 PM EST Office Visit [facility] 505 [place] [address] Edwige Headley MD 505 [place] [address] documented as of this encounter Goals Goal [...] documented as of this encounter Care Teams Edge Bonder Relationship Specialty Start Date End Date Edwige Headley MD 230 [place] [address] PCP - General Family Medicine 08/21/22 documented as of this encounter
--- OUTSIDE RECORDS SUMMARY | 2025-04-09 14:37 | XMS_ITS | Encounter Summary ---
Author Organization [employer] Address [address] 7t [place] [address] Care Team Providers Care Food Product Inspector Name Role Phone Edwige Headley MD Primary Care Provider [phone] Reason for Visit * Reason Onset Date Comments Medical Necessity Form 10/20/2024 Encounter Details Date Type Department Care Team ([facility] st Contact Info) Description 10/20/2024 Telephone [facility] MEDICINE 230 [place] [address] Edwige Headley MD 505 [place] [address] Medical Necessity Form Social History Tobacco Use [...] - 10/20/2024 10:29 AM EDT TC from [facility] with [facility] requesting a medical necessity form regarding a stair lift. She stated that provider agreement is required for processing and requested the form be faxed to [phone]. documented in this encounter Plan of Treatment Upcoming Encounters Date Type Department Care Team (Late st Contact Info) Description 04/26/2025 11:00 AM EST Clinical Support [facility] 505 [place] [address] Maria Guadalupe Rodríguez, AC 505 [place] [address] 06/07/2025 1:30 PM EST Office Visit [facility] 505 [place] [address] Edwige Headley MD 505 [place] [address] documented as of this encounter Goals Goal [...] documented as of this encounter Care Teams Food Product Inspector Relationship Specialty Start Date End Date Edwige Headley MD 230 [place] [address] PCP - General Family Medicine 08/21/22 documented as of this encounter
--- OUTSIDE RECORDS SUMMARY | 2025-04-09 14:37 | XMS_ITS | Encounter Summary ---
Author Organization [employer] Address [address] 7[address] [place] [address] Care Team Providers Care Location Worker Name Role Phone Edwige Headley MD Primary Care Provider [phone] Reason for Visit * Reason Onset Date Comments Appointment Request 09/05/2024 Encounter Details Date Type Department Care Team ([facility] st Contact Info) Description 09/05/2024 Telephone [facility] MED[facility] 230 [place] [address] Edwige Headley MD 505 [place] [address] Appointment Request Social History Tobacco Use Types [...] [facility] 505 [place] [address] Maria Guadalupe Rodríguez, AC 505 [place] [address] 06/07/2025 1:30 PM EST Office Visit [facility]ED[facility] 505 [place] [address] Edwige Headley MD 505 [place] [address] documented as of this encounter Goals Goal [...] documented as of this encounter Care Teams Location Worker Relationship Specialty Start Date End Date Edwige Headley MD 230 [place] [address] PCP - General Family Medicine 08/21/22 documented as of this encounter
--- OUTSIDE RECORDS SUMMARY | 2025-04-09 14:37 | XMS_ITS | Encounter Summary ---
Author Organization [employer] Address [address] 7t [place] [address] Care Team Providers Care Registered Vascular Technologist (Rvt) Name Role Phone Edwige Headley MD Primary Care Provider [phone] Encounter Details Date Type Department Care Team ([facility] st Contact Info) Description 10/22/2022 Telephone [facility]EDS 505 [place], [place] [phone] Edwige Headley MD 505 [place] [address] Social History Tobacco Use Types Packs/Day Years [...] a call in regards to message above. (Uzbek speaker) * Telephone Encounter - Inez Martinez - 10/22/2022 3:31 PM EDT TC from pt requesting help to schedule her gastro appt . Please call to clarify . documented in this encounter Plan of Treatment Upcoming Encounters Date Type Department Care Team (Late st Contact Info) Description 04/26/2025 11:00 AM EST Clinical Support [facility] MED & PEDS 505 [place] [address] Maria Guadalupe Rodríguez, RN 505 [place], [place] [phone] 06/07/2025 1:30 PM EST Office Visit [facility] MED [facility] PEDS 505 [place] [address] Edwige Headley MD 505 [place] [address] documented as of this encounter Goals Goal [...] documented as of this encounter Care Teams Registered Vascular Technologist (Rvt) Relationship Specialty Start Date End Date Edwige Headley MD [address] [place] [address] PCP - General Family Medicine 08/21/22 documented as of this encounter
--- OUTSIDE RECORDS SUMMARY | 2025-04-09 14:37 | XMS_ITS | Encounter Summary ---
Author Organization [employer] Address [address] 7t [place] [address] Care Team Providers Care Sugar Boiler Name Role Phone Edwige Headley MD Primary Care Provider [phone] Reason for Visit * Reason Onset Date Comments Appointment Request 08/17/2024 Encounter Details Date Type Department Care Team ([facility] st Contact Info) Description 08/17/2024 Telephone [facility] MEDICINE 230 [place] [address] Edwige Headley MD 505 [place] [address] Appointment Request Social History Tobacco Use Types [...] [facility] MED [facility] PEDS 505 [place] [address] Maria Guadalupe Rodríguez RN 505 [place] [address] 06/07/2025 1:30 PM EST Office Visit [facility] 505 [place] [address] Edwige Headley MD 505 [place] [address] documented as of this encounter Goals Goal [...] documented as of this encounter Care Teams Sugar Boiler Relationship Specialty Start Date End Date Edwige Headley MD 230 [place] [address] PCP - General Family Medicine 08/21/22 documented as of this encounter
--- OUTSIDE RECORDS SUMMARY | 2025-04-09 14:37 | XMS_ITS | Encounter Summary ---
Author Organization [employer] Address [address] 7t [place] [address] Care Team Providers Care Back Tender Pulp Drier Name Role Phone Edwige Headley MD Primary Care Provider Encounter Details Date Type Department Care Team ([facility] Contact Info) Description 11/03/2022 Abstract [place] [employer] Information [employer] 230 [place], [place] [phone] Edwige Headley MD 505 [place], [place] [phone] Social History Tobacco Use Types Packs/Day Years [...] Upcoming Encounters Date Type Department Care Team ([facility] Contact Info) Description 04/26/2025 11:00 AM EST Clinical Support [facility] MED & PEDS 505 [place], [place] [phone] Maria Guadalupe Rodríguez RN 505 [place] [address] 06/07/2025 1:30 PM EST Office Visit [facility] MED & PEDS 505 [place] [address] Edwige Headley MD 505 [place] [address] documented as of this encounter Goals Goal [...] as of this encounter Care Teams Back Tender Pulp Drier Relationship Specialty Start Date End Date Edwige Headley MD [address] [place] [address] PCP - General Family Medicine 08/21/22 documented as of this encounter
--- OUTSIDE RECORDS SUMMARY | 2025-04-09 14:37 | XMS_ITS | Encounter Summary ---
Author Organization [employer] Address [address] 7t [place] [address] Care Team Providers Care Daytime Babysitter Name Role Phone Edwige Headley MD Primary Care Provider [phone] Reason for Visit * Reason Comments Med Refill Encounter Details Date Type Department Care Team ([facility] st Contact Info) Description 10/16/2023 Refill [facility] MED & PEDS 505 [place], [place] [phone] Edwige Headley MD 505 [place] [address] Social History Tobacco Use Types Packs/Day Years [...] Description 04/26/2025 11:00 AM EST Clinical Support [facility] 505 [place] [address] Maria Guadalupe Rodríguez, AC 505 [place] [address] 06/07/2025 1:30 PM EST Office Visit [facility] 505 [place] [address] Edwige Headley MD 505 [place] [address] documented as of this encounter Goals Goal [...] documented as of this encounter Care Teams Daytime Babysitter Relationship Specialty Start Date End Date Edwige Headley MD 230 [place] [address] PCP - General Family Medicine 08/21/22 documented as of this encounter
--- OUTSIDE RECORDS SUMMARY | 2025-04-09 14:37 | XMS_ITS | Data Portability ---
Author Organization [employer] [facility], [facility] Address [address] [place] [phone] Care Team Providers Care Patient Transition Specialist Name Role Phone HIM CCA OTHER Unavailable OTHER Assessment Encounter Date Assessment Date Assessment LastModified by Organization Details LastModified Time 10/13/2023 10/13/2023 I have reviewed and agree with the assessment and plan as documented by the client services analyst. I provided real-time medical direction for this [...] cream 2023 024 [facility], [address] [place] [address], [id number], 14:48:38 Patient TargetsNo targets recorded. Patient InstructionsNo [...] Details Last Updated DateTime 4 99 % 37374.6 16 g 16 /min 98.1 [degF] 86 [...] ICD10 Code Diagnosis IMO Codes Diagnosis Note [id number] Rita Haile MD Main - instED [address] [place] [address] 10/13/2023 18:14:24 10/14/2023 10:34:19 Contact dermatitis 85342658 L25.9 Health Concerns Section Related Observation LastModified by Organization Detai ls LastModified Time None Recorded Concern Status LastModified by Organization Details LastModified Time None Recorded Advance Directives Directive None Recorded Payers Insurance Date Sequence Insurance Name Policy Number Policy Sifuentes Covered Member ID Sifuentes Member ID Guarantor Name 10/13/[address] [facility] - DOS ON OR AFTER 2022 - MEDICARE ADVANTAGE [place] (MEDICARE REPLACEMENT/ADV ANTAGE - PPO) Ed Kumarpo [id number] Ed Kumarpo 10/13/[address] [facility] - DOS ON OR AFTER 2022 - DUAL ELIGIBLE - RESIDENTIAL OPTIONS AND ONE CARE (MEDICARE REPLACEMENT/ADV ANTAGE - HMO) Ed Kumarpo [id number] Ed Kumarpo Notes Date Note Type Note [...] .................... .................... .................... .................... .................... .................... . Explosive Operator Fuse Note From Michael Nielson: Pt co rash/redness [...] . Disposition: Fulfilled Rita Haile MD [address] [facility],[address], [place], [address], [employer] 10/13/2023 19:19:35 OBGyn Episode No OBEpisode recorded.
--- OUTSIDE RECORDS SUMMARY | 2025-04-09 14:37 | XMS_ITS | Encounter Summary ---
Author Organization [employer] Address [address] [facility] 7 [place] [address] Care Team Providers Care Grocery Supervisor Name Role Phone Edwige Headley MD Primary Care Provider [phone] Reason for Visit * Reason Comments Med Refill Encounter Details Date Type Department Care Team ([facility] st Contact Info) Description 04/04/2025 Refill [facility] MED & PEDS 505 [place], [place] [phone] Teressa Maher MD 505 [place] [address] Social History Tobacco Use Types Packs/Day Years [...] [facility] 505 [place] [address] Maria Guadalupe Rodríguez, AC 505 [place] [address] 06/07/2025 1:30 PM EST Office Visit [facility] 505 [place] [address] Edwige Headley MD 505 [place] [address] documented as of this encounter Goals Goal [...] documented as of this encounter Care Teams Grocery Supervisor Relationship Specialty Start Date End Date Edwige Headley MD [address] [place] [address] PCP - General Family Medicine 08/21/22 documented as of this encounter
--- OUTSIDE RECORDS SUMMARY | 2025-04-09 14:37 | XMS_ITS | Encounter Summary ---
Author Organization [employer] Address [address] [facility] 7 [place] [address] Care Team Providers Care Drill Presser Name Role Phone Edwige Headley MD Primary Care Provider [phone] Reason for Visit * Reason Comments Med Refill Encounter Details Date Type Department Care Team ([facility] st Contact Info) Description 01/15/2025 Refill [facility] MED & PEDS 505 [place] [address] Radha Renee MD 505 [place] [address] Social History Tobacco Use Types Packs/Day Years [...] [facility] 505 [place] [address] Maria Guadalupe Rodríguez, AC 505 [place] [address] 06/07/2025 1:30 PM EST Office Visit [facility] 505 [place] [address] Edwige Headley MD 505 [place] [address] documented as of this encounter Goals Goal [...] documented as of this encounter Care Teams Drill Presser Relationship Specialty Start Date End Date Edwige Headley MD [address] [place] [address] PCP - General Family Medicine 08/21/22 documented as of this encounter
--- OUTSIDE RECORDS SUMMARY | 2025-04-09 14:37 | XMS_ITS | Encounter Summary ---
Author Organization [employer] Address [address] [facility] [address] [place] [address] Care Team Providers Care Seed Corn Manager Production Name Role Phone Edwige Headley MD Primary Care Provider [phone] Reason for Visit * Reason Onset Date Comments Lab Orders 07/06/2024 Encounter Details Date Type Department Care Team ([facility] st Contact Info) Description 07/06/2024 Telephone [facility] MEDICINE 230 [place] [address] Edwige Headley MD 505 [place] [address] Lab Orders Social History Tobacco Use Types [...] TC x 3 placed to pt via Page365 manager universal (Ace ID#[id number]) to inform a tuberculosis lab order was placed by the provider for her to have done at her convenience. Pt verbalized understanding and deniesquestions or concerns at this time. * Telephone Encounter - Mau Overton - 07/06/2024 4:20 PM EST Tc from pt returning call. Pt needs an Exercise Science Instructor. * Telephone Encounter - Zoë Dorantes RN - 07/06/2024 3:33 PM EST TC placed to pt via Page[employer] manager universal (ID#[id number]) to inform a tuberculosis lab order was [...] [facility] MED & PEDS 505 [place] [address] Maria Guadalupe Rodríguez RN 505 [place], [place] 06/07/2025 1:30 PM EST Office Visit [facility] MED & PEDS 505 [place] [address] Edwige Headley MD 505 [place] [address] documented as of this encounter Goals Goal Patient Goal Type Associated Problems Recent Progress Patient-Stated? Author Use the inhalers as prescribed by provider; Flovent HFA scheduled and albuterol as needed General No Marcel Garcia PharmD Take your medication every day Lifestyle No Marcle Garcia PharmD documented as of this encounter Procedures Procedure Name Priority Date/Time Associated Diagnosis Comments T-SPOT(R).TB Routine 07/07/2024 9:23 AM EST Encounter for screening for respiratory tuberculosis documented in this encounter Results * T-SPOT??.TB (07/07/2024 9:23 AM EST) [facility] T Spot TB Negative Negative [facility] Comment:A negative test resu lt [...] as aquantitative test. TS PANEL A 0 [facility] TS PANEL B 0 [facility] Negative Control Passed [facility] Positive Control Passed [facility] Comment:For additional infor nika, please refer tohttp://education.Overlay.tv/faq/UIU587(This link is being provided for informational/educational purposes only.)THIS TEST WAS PERFORMED AT:[employer] [id number] [place] [address]JJBSLRAVIRGINIA DAN MD,PHD 07/07/2024 9:23 AM EST 07/07/2024 1:55 PM EST us Edwige Headley MD LAB BLOOD ORDERABLES Final Re sult [facility] [address] [place] [address] [phone] documented in this encounter Visit Diagnoses Diagnosis Encounter for screening for respiratory tuberculosis documented in this encounter Additional Health Concerns Assessment Noted Time PHQ-9 Depression Total Score: 10 024 12:52 PM EDT documented as of this encounter Care Teams Seed Corn Manager Production Relationship Specialty Start Date End Date Edwige Headley MD 230 [place] [address] PCP - General Family Medicine 08/21/22 documented as of this encounter
--- OUTSIDE RECORDS SUMMARY | 2025-04-09 14:37 | XMS_ITS | Encounter Summary ---
Author Organization [employer] Address [address] 7t [place] [address] Care Team Providers Care Toolsmith Name Role Phone Edwige Headley MD Primary Care Provider [phone] Reason for Visit * Reason Onset Date Comments Hospital Follow-up 05/25/2024 Encounter Details Date Type Department Care Team ([facility] st Contact Info) Description 05/25/2024 Telephone [facility] MEDICINE 230 [place] [address] Edwige Headley MD [address] [place] [address] Hospital Follow-up Social History Tobacco Use Types [...] from pt requesting a HDF appt. Hospital: [facility] Date of admission: 05/16/2024 Discharge date: 2024 Diagnosed: Discuss with pt. *Send message to [facility] Clinical Care Coordinators documented in this encounter Plan of Treatment Upcoming Encounters Date Type Department Care Team (Late st Contact Info) Description 04/26/2025 11:00 AM EST Clinical Support [facility] MED & PEDS 505 [place] [address] Maria Guadalupe Rodríguez RN 505 [place] [address] 06/07/2025 1:30 PM EST Office Visit [facility] MED & PEDS 505 [place] [address] Edwige Headley MD 505 [place] [address] documented as of this encounter Goals Goal [...] documented as of this encounter Care Teams Toolsmith Relationship Specialty Start Date End Date Edwige Headley MD 230 [place] [address] PCP - General Family Medicine 08/21/22 documented as of this encounter
--- OUTSIDE RECORDS SUMMARY | 2025-04-09 14:37 | XMS_ITS | Encounter Summary ---
Author Organization [employer] Address [address] [place] [address] Care Team Providers Care Maintenance Leader Name Role Phone Edwige Headley MD Primary Care Provider [phone] Reason for Visit * Reason Onset Date Comments Appointment Request 01/24/2025 Encounter Details Date Type Department Care Team ([facility] st Contact Info) Description 01/24/2025 Telephone [facility] MEDICINE 230 [place] [address] Edwige Headley MD 505 [place] [address] Appointment Request Social History Tobacco Use Types [...] back regarding prior message. Contact pt at [phone] * Telephone Encounter - Tiburcio Thibodeaux - 01/24/2025 9:21 AM EDT Tc from pt requesting to reschedule CAMPER ASSEMBLER visit from 02/01. Please contact pt at [phone]. (Persian Speaker) documented in this encounter Plan of Treatment Upcoming Encounters Date Type Department Care Team ([facility] st Contact Info) Description 04/26/2025 11:00 AM EST Clinical Support [facility] MED & PEDS 505 [place] [address] Maria Guadalupe Rodríguez RN 505 [place] [address] 06/07/2025 1:30 PM EST Office Visit [facility] MED & PEDS 505 [place] [address] Edwige Headley MD 505 [place] [address] documented as of this encounter Goals Goal [...] as of this encounter Care Teams Maintenance Leader Relationship Specialty Start Date End Date Edwige Headley MD 230 [place] [address] PCP - General Family Medicine 08/21/22 documented as of this encounter
--- OUTSIDE RECORDS SUMMARY | 2025-04-09 14:37 | XMS_ITS | Encounter Summary ---
Author Organization [employer] Address [address] [place] [address] Care Team Providers Care Clinical Analyst Name Role Phone Edwige Headley MD Primary Care Provider [phone] Reason for Visit * Reason Comments Med Refill Encounter Details Date Type Department Care Team ([facility] st Contact Info) Description 08/13/2023 Refill [facility] [address] [place], [place] [phone] Edwige Headley MD [address] [place] [address] Social History Tobacco Use Types Packs/Day Years [...] Description 04/26/2025 11:00 AM EST Clinical Support [facility] [address] [place] [address] Maria Guadalupe Rodríguez, AC [address] [place] [address] 06/07/2025 1:30 PM EST Office Visit [facility] [address] [place] [address] Edwige Headley MD [address] [place] [address] documented as of this encounter Goals Goal [...] as of this encounter Care Teams Clinical Analyst Relationship Specialty Start Date End Date Edwige Headley MD [address] [place] [address] PCP - General Family Medicine 08/21/22 documented as of this encounter
--- OUTSIDE RECORDS SUMMARY | 2025-04-09 14:37 | XMS_ITS | Encounter Summary ---
Author Organization [employer] Address [address] [place] [address] Care Team Providers Care Dumper Operator Name Role Phone Edwige Headley MD Primary Care Provider [phone] Reason for Visit * Reason Onset Date Comments PT-1 03/28/2024 Encounter Details Date Type Department Care Team ([facility] st Contact Info) Description 03/28/2024 Telephone [facility] [address] [place] [address] Edwige Headley MD [address] [place] [address] PT-1 Social History Tobacco Use Types Packs/Day [...] Y/N: Yes Provider name or facility name: [facility] Address: [address] [place] [address] Escort needed: Y/N: Yes Do you have a wheelchair: Y/N: No If yes- Manual or electric: (Uses Walker) Visits: Once a month documented in this encounter Plan of Treatment Upcoming Encounters Date Type Department Care Team (Late st Contact Info) Description 04/26/2025 11:00 AM EST Clinical Support [facility] MED & PED[facility] [address] [place] [address] Maria Guadalupe Rodríguez RN [address] [place] [address] 06/07/2025 1:30 PM EST Office Visit [facility] MED & PEDS [address] [place] [address] Edwige Headley MD [address] [place] [address] documented as of this encounter Goals Goal [...] documented as of this encounter Care Teams Dumper Operator Relationship Specialty Start Date End Date Edwige Headley MD [address] [place] [address] PCP - General Family Medicine 08/21/22 documented as of this encounter
--- OUTSIDE RECORDS SUMMARY | 2025-04-09 14:37 | XMS_ITS | Encounter Summary ---
Author Organization [employer] Address [address] [place] [address] Care Team Providers Care Forge Heater Name Role Phone Edwige Headley MD Primary Care Provider [phone] Reason for Visit * Reason Onset Date Comments Med Refill 11/13/2024 Encounter Details Date Type Department Care Team ([facility] st Contact Info) Description 11/13/2024 Telephone [facility] [address] [place] [address] Edwige Headley MD [address] [place] [address] Med Refill Social History Tobacco Use Types [...] 50 MG tablet To be sent to: [facility] pharmacy documented in this encounter Plan of Treatment Upcoming Encounters Date Type Department Care Team (Late st Contact Info) Description 04/26/2025 11:00 AM EST Clinical Support [facility] MED [facility] PEDS [address] [place] [address] Maria Guadalupe Rodríguez RN [address] [place] [address] 06/07/2025 1:30 PM EST Office Visit [facility] [address] [place] [address] Edwige Headley MD [address] [place] [address] documented as of this encounter Goals Goal [...] documented as of this encounter Care Teams Forge Heater Relationship Specialty Start Date End Date Edwige Headley MD [address] [place] [address] PCP - General Family Medicine 08/21/22 documented as of this encounter
== END 2025-04-09 11:36 | disposition home or self-care (01) ==
LOC: HO.HSM 11:15
PROVIDERS: PCP Family Medicine; Visit Provider Psychiatry & Neurology Neurology
DX: G30.1 Alzheimer's disease with late onset (principal); F02.B18 Dementia in other diseases classified elsewhere, moderate, with other behavioral disturbance; G43.009 Migraine without aura, not intractable, without status migrainosus; G25.81 Restless legs syndrome
CPT/HCPCS: 99214

== ENCOUNTER → 2025-04-09 11:14 | Outpatient (BNVA) | payer OTHER, SELFPAY | PROVIDERS: PCP Family Medicine; Visit Provider Psychiatry & Neurology Neurology | DX: G30.1 Alzheimer's disease with late onset (principal); F02.B18 Dementia in other diseases classified elsewhere, moderate, with other behavioral disturbance; G43.009 Migraine without aura, not intractable, without status migrainosus; G25.81 Restless legs syndrome | CPT/HCPCS: 99212 ==